=== PATIENT | female | born 1960 | race Caucasian/White ===

== ENCOUNTER 2017-08-08 09:28 | Inpatient (IN) | payer MEDICAID, OTHER ==
[2017-08-08 09:28] VITALS: BMI 30.2
[2017-08-08] MEDS ORDERED: Sodium Chloride 0.9% 1,000 ML ONE (09:57)
[2017-08-08] MEDS ORDERED: Sodium Chloride 0.9% 1,000 ML IV ONE (10:11)
--- NOTE | 2017-08-08 10:11 | C.PDOC ---
History Of Present Illness 57 y/o female with Hx of DM presents to ED with complaints of abdominal pain and dysphasia for some times. pt reports difficulty taking water. Patient reports previous history of Esophagitis and gastritis. Patient denies fever, chills, n/v/d or any other complaints at this time. Time Seen by Provider: 08/08/17 09:46 Chief Complaint (Nursing): Abdominal Pain History Per: Patient History/Exam Limitations: no limitations Onset/Duration Of Symptoms: Days Current Symptoms Are (Timing): Still Present Past Medical History Reviewed: Historical Data, Nursing Documentation, Vital Signs Vital Signs: Last Vital Signs Temp 98.3 F 08/15/17 08:20 Pulse 63 08/15/17 08:20 Resp 20 08/15/17 08:20 BP 161/80 H 08/15/17 08:20 Pulse Ox 98 08/15/17 11:16 - Medical History PMH: Diabetes, HTN, Hypothyroidism Denies: Chronic Kidney Disease - [facility] Procedures ESOPHAGOGASTRODUODENOSCOPY [EGD] W/CLOSED BIOPSY (05/06/13) Family History: States: Unknown Family Hx - Social History Hx Tobacco Use: No Hx Alcohol Use: No Hx Substance Use: No - Immunization History Hx Tetanus Toxoid Vaccination: No Hx Influenza Vaccination: No Hx Pneumococcal Vaccination: No Review Of Systems Except As Marked, All Systems Reviewed And Found Negative. Gastrointestinal: Positive for: Abdominal Pain Physical Exam - Physical Exam Appears: Non-toxic, No Acute Distress Skin: Normal Color, Warm, Dry, No Rash Head: Atraumatic, Normacephalic Eye(s): bilateral: Normal Inspection Oral Mucosa: Moist Neck: Normal ROM, Supple Chest: Symmetrical Cardiovascular: Rhythm Regular, No Murmur Respiratory: Normal Breath Sounds, No Rales, No Rhonchi, No Wheezing Gastrointestinal/Abdominal: Tenderness (mild to epigastric area), No Guarding, No Rebound Neurological/Psych: Oriented x3 ED Course And Treatment - Laboratory Results Result Diagrams: 08/15/17 08:58 08/15/17 08:58 ECG: Interpreted By Me, Viewed By Me ECG Rhythm: Sinus Rhythm ECG Interpretation: Normal Rate From EC (bpm) O2 Sat by Pulse Oximetry: 98 (RA) Pulse Ox Interpretation: Normal Progress Note: Dr. Rivas was called to discuss the case and advises to angie glucagon and reglan. Dr. Rivas will come to ED to evaluate patient. Dr. Luu will accept patient to his services. Medical Decision Making Medical Decision Making: Plan: * UA * Blood work * ECG case discussed with dr rivas, advises will be in to see pt for possible egd. dr fonseca accepts. pt tolerating secretions Disposition - Disposition Disposition: HOSPITALIZED Disposition Time: 11:15 Condition: FAIR - Clinical Impression Clinical Impression: Esophageal foreign body - Scribe Statement The provider has reviewed the documentation as recorded by the Scribe Nuris Raygoza All medical record entries made by the Scribe were at my direction and personally dictated by me. I have reviewed the chart and agree that the record accurately reflects my personal performance of the history, physical exam, medical decision making, and the department course for this patient. I have also personally directed, reviewed, and agree with the discharge instructions and disposition. Decision To Admit - Pt Status Changed To: Hospital Disposition Of: Inpatient - Admit Certification Admit to Inpatient:: After my assessment, the patient will require hospitalization for at least two midnights. This is because of the severity of symptoms shown, intensity of services needed, and/or the medical risk in this patient being treated as an outpatient. - InPatient: Physician Admission Certification:: pt needs egd, gi eval - . Bed Request Type: Regular Admitting Physician: Drew Fonseca Patient Diagnosis: Esophageal foreign body
[2017-08-08 10:16] LABS: BASO % 0.8 % (0.0-2.0); EOS % 0.8 % (0.0-4.0); HEMATOCRIT 29.2 % (34.0-47.0); LYMPH # 0.6 K/uL (1.0-4.3); LYMPH % 20.8 % (20.0-40.0); MEAN CELL VOLUME 89.1 fL (81.0-99.0); MEAN CORPUSCULAR HEMOGLOBIN 30.1 pg (27.0-31.0); MEAN CORPUSCULAR HGB CONC 33.8 g/dL (33.0-37.0); MONO # 0.3 K/uL (0.0-0.8); MONO % 10.2 % (0.0-10.0); NRBC % 0.1 % (0.0-2.0); RED CELL DISTRIBUTION WIDTH 15.6 % (11.5-14.5)
--- NOTE | 2017-08-08 10:23 | RAD ---
PROCEDURE: CHEST RADIOGRAPH, 1 VIEW HISTORY: abd pain COMPARISON: None available. FINDINGS: LUNGS: No acute infiltrate bilaterally. PLEURA: No pneumothorax or pleural fluid seen. CARDIOVASCULAR: Normal. OSSEOUS STRUCTURES: No significant abnormalities. VISUALIZED UPPER ABDOMEN: Normal. OTHER FINDINGS: None. IMPRESSION: No acute cardiopulmonary disease.
[2017-08-08 10:25] LABS: ALB/GLOB RATIO 0.9 (1.0-2.1); ALKALINE PHOSPHATASE 88 U/L (38-126); ALT/SGPT 24 U/L (9-52); AST/SGOT 29 U/L (14-36); BILIRUBIN,TOTAL 0.5 mg/dL (0.2-1.3); BLOOD UREA NITROGEN 13 mg/dL (7-17); CALCIUM 8.8 mg/dl (8.6-10.4); CARBON DIOXIDE 22 mmol/L (22-30); CHLORIDE 100 mmol/L (98-107); GFR AFRICAN-AMERICAN > 60; GLUCOSE,RANDOM 206 mg/dL (65-105); POTASSIUM 3.4 mmol/L (3.6-5.2); SODIUM 138 mmol/L (132-148); TOTAL PROTEIN 7.4 g/dL (6.3-8.3)
[2017-08-08 12:40] LABS: RBC URINE < 1 /hpf (0-3); URINE BACTERIA RARE (<OCC); URINE BILIRUBIN NEGATIVE (NEGATIVE); URINE BLOOD NEGATIVE (NEGATIVE); URINE COLOR Yellow (YELLOW); URINE GLUCOSE (UA) 2+ mg/dL (Normal); URINE HYALINE CAST 0-2 /lpf (0-2); URINE KETONE TRACE mg/dL (NEGATIVE); URINE LEUKOCYTE ESTERASE NEG Leu/uL (Negative); URINE PROTEIN 1+ mg/dL (NEGATIVE); URINE UROBILINOGEN NORMAL mg/dL (0.2-1.0); WBC URINE 3 /hpf (0-5)
--- NOTE | 2017-08-08 13:22 | CT ---
PROCEDURE: CT Chest without contrast HISTORY: dypshagia COMPARISON: None. TECHNIQUE: Contiguous axial images were obtained through the chest without intravenous contrast enhancement. Sagittal and coronal reconstructions were performed. Radiation dose (DLP): 143.03 mGy-cm. This CT exam was performed using one or more of the following dose reduction techniques: Automated exposure control, adjustment of the mA and/or kV according to patient size, and/or use of iterative reconstruction technique. FINDINGS: LUNGS: Clear lungs. Visualized airway clear. MEDIASTINUM: Unremarkable thoracic aorta. No aneurysm. Normal sized heart. Main pulmonary artery unremarkable. No vascular congestion. No lymphadenopathy. There is particulate matter intermixed with gas within the esophageal lumen in a long segment. This suggests possible gastroesophageal reflux or esophageal dysmotility. Recommend further evaluation with upper endoscopy. PLEURA: No pleural fluid. No pneumothorax. BONES: No fracture. Small rounded sclerotic lesion in the L1 vertebral body, likely benign bone island. UPPER ABDOMEN: Grossly unremarkable. OTHER FINDINGS: Superior right breast 6 mm nonspecific rounded nodule. Recommend evaluation with mammography and ultrasound examination. IMPRESSION: Particulate matter, possibly food, identified within the esophageal lumen intermixed with gas. Possible esophageal dysmotility or gastroesophageal reflux. Recommend further evaluation as above. Incidental 6 mm nodule identified within the superior right breast. Further evaluation with mammography and breast ultrasound is advised.
[2017-08-08] MEDS ORDERED: Glucagon Recombinant 1 mg Inj IV STA (13:27)
[2017-08-08] MEDS ORDERED: Glucagon Recombinant 1 mg Inj ONE (13:42)
[2017-08-08] MEDS ORDERED: Sodium Chloride 0.45% 1,000 ML IV SCH ×2 (15:45→18:53)
--- NOTE | 2017-08-08 17:28 | CP.PCM.HP ---
<TerrellJuana Ketan - Last Filed: 08/08/17 18:38> History of Present Illness - History of Present Illness History of Present Illness: CC: trouble swallowing liquids and solids with pain 57 year old female with PMHx of HTN, Hypothyroid, DM, GERD, esophagitis, gastritis, and LOLIS (dialyzed for 4 weeks, permacath removed 5 days ago). Patient comes in complaining of dysphagia that has been progressively worsening over the last two weeks. Pain has been worse at night because she normally spits up a lot during the day. She notes an associated sharp pain that occurs after burping. Patient says she feels like she has a lot of gas constantly. Patient has had a 15-20 lbs weight loss since February. She had an EGD done at [facility] back in February which showed ulceration of the lower esophagus. Patient states she was given abx and began to feel better until two weeks ago in which her symptoms progressively started to worsen. Patient has not been taking many of her normal medications due to her dysphagia. Patient takes her insulin, but often forgets. Patient also admits she has been having bowel movements less frequently and her stool color is expert witness in color for the past few weeks. Patient denies nausea, vomiting, abdominal pain, diarrhea, fever, or chills. PMD: Dr. Chuy Fernando Flow Worker: Dr. Ambrocio Pmhx: HTN, Hypothyroid, DM, GERD, esophagitis, gastritis, and LOLIS (dialyzed for 4 weeks, permacath removed 5 days ago) Pshx: Permacath, EGD Famhx: none known Social: denies tobacco, alcohol, drugs. retired and lives with Home Meds: Novolog 70/30: 34 u in am, 24 units in pm Present on Admission - Present on Admission Any Indicators Present on Admission: No History of DVT/PE: No History of Uncontrolled Diabetes: No Urinary Catheter: No Decubitus Ulcer Present: No Review of Systems - Constitutional Constitutional: Malaise, Weight Loss, Weakness. absent: Chills, Fever, Headache , Night Sweats - EENT Eyes: absent: Blurred Vision, Diplopia Nose/Mouth/Throat: Dysphagia. absent: Nasal Congestion, Dry Mouth - Cardiovascular Cardiovascular: absent: Chest Pain, Claudication, Diaphoresis, Dyspnea, Edema, Palpitations - Respiratory Respiratory: absent: Cough, Dyspnea, Hemoptysis, Snoring, Stridor - Gastrointestinal Gastrointestinal: Belching, Change in Stool Character, Dysphagia, Excessive Flatus, Heartburn. absent: Abdominal Pain, Diarrhea, Loose Stools Additional comments: having less frequent bowel movements and expert witness colored stools - Genitourinary Genitourinary: absent: Change in Urinary Stream, Difficulty Urinating, Dysuria, Flank Pain, Hematuria, Urinary Frequency, Urinary Hesitance, Urinary Urgency - Musculoskeletal Musculoskeletal: Muscle Weakness. absent: Myalgias, Stiffness, Tingling - Integumentary Integumentary: absent: Changing Lesions, New Lesions - Neurological Neurological: absent: Dizziness, Numbness - Psychiatric Psychiatric: absent: Confusion - Hematologic/Lymphatic Hematologic: absent: Easy Bleeding, Easy Bruising Past Patient History - Past Social History Smoking Status: Never Smoked - CARDIAC Hx Hypertension: Yes - PULMONARY Hx Respiratory Disorders: No - NEUROLOGICAL Hx Neurological Disorder: No - HEENT Hx HEENT Problems: No - RENAL Hx Chronic Kidney Disease: No - ENDOCRINE/METABOLIC Hx Hypothyroidism: Yes - HEMATOLOGICAL/ONCOLOGICAL Hx Blood Disorders: No - INTEGUMENTARY Hx Dermatological Problems: No - MUSCULOSKELETAL/RHEUMATOLOGICAL Hx Musculoskeletal Disorders: No - GASTROINTESTINAL Hx Gastrointestinal Disorders: No - GENITOURINARY/GYNECOLOGICAL Hx Genitourinary Disorders: No - PSYCHIATRIC Hx Substance Use: No - SURGICAL HISTORY Hx Section: Yes (x2) - ANESTHESIA Hx Anesthesia: Yes Hx Anesthesia Reactions: No Meds Allergies/Adverse Reactions: Allergies Allergy/AdvReac Type Severity Reaction Status Date / Time Penicillins Allergy Severe ANGIOEDEMA Verified 08/08/17 09:37 Physical Exam - Constitutional Appears: Non-toxic, No Acute Distress - Head Exam Head Exam: ATRAUMATIC, NORMAL INSPECTION, NORMOCEPHALIC - Eye Exam Eye Exam: EOMI, Normal appearance Additional comments: conjunctival pallor - ENT Exam ENT Exam: Mucous Membranes Moist - Respiratory Exam Respiratory Exam: Clear to Auscultation Bilateral, NORMAL BREATHING PATTERN. absent: Rales, Rhonchi, Wheezes, Respiratory Distress, Stridor - Cardiovascular Exam Cardiovascular Exam: REGULAR RHYTHM, RRR. absent: Gallop, Rubs, Systolic Murmur - GI/Abdominal Exam GI & Abdominal Exam: Normal Bowel Sounds, Soft - Extremities Exam Extremities exam: Positive for: full ROM, normal inspection. Negative for: joint swelling, pedal edema - Back Exam Back exam: NORMAL INSPECTION - Neurological Exam Neurological exam: Alert, Oriented x3 - Psychiatric Exam Psychiatric exam: Normal Affect, Normal Mood - Skin Skin Exam: Intact, Normal Color, Warm Results - Vital Signs Recent Vital Signs: Last Vital Signs Temp 98.0 F 08/08/17 09:31 Pulse 56 L 08/08/17 14:18 Resp 18 08/08/17 14:18 BP 123/74 08/08/17 14:18 Pulse Ox 100 08/08/17 14:18 - Labs Result Diagrams: 08/08/17 10:10 08/08/17 10:10 Assessment & Plan - Assessment and Plan (Free Text) Assessment: 1. Dysphagia Chest CT: particulate matter, possibly food, identified within the esophageal lumen intermixed with gas. Incidental 6mm nodule within superior right breast. Cxray: no acute cardiopulmonary disease f/u: neck soft tissue CT, barium swallow, swallow eval NPO 1/2 NS at 150 cc/ hr GI consulted, Dr. Cervantes, help appreciated Reglan 5mg ivp q6h Sucralfate 1 gm po ACBHS 2. Anemia H/H: 9.9/29.2 monitor f/u stool occult blood 3. Hx hypothyroidism f/u TSH 4. Diabetes ISS - high accuchecks q6h f/u HgA1C 5. Prophylaxis Heparin 5000u sc q8h Pepcid 20 ivp daily <Drew Valle H - Last Filed: 08/09/17 07:54> Results - Vital Signs Recent Vital Signs: Last Vital Signs Temp 97.5 F L 08/09/17 00:00 Pulse 64 08/09/17 00:00 Resp 20 08/09/17 00:00 BP 136/74 08/09/17 00:00 Pulse Ox 100 08/09/17 00:00 - Labs Result Diagrams: 08/08/17 10:10 08/08/17 10:10 Labs: Laboratory Results - last 24 hr 08/08/17 08/08/17 08/09/17 19:49 20:31 00:15 POC Glucose (mg/dL) 39 L 249 H 230 H 08/09/17 05:57 POC Glucose (mg/dL) 300 H Attending/Attestation - Attestation I have personally seen and examined this patient.: Yes I have fully participated in the care of the patient.: Yes I have reviewed all pertinent clinical information: Yes Notes (Text): Medical Attending: Patient was seen and examined by me. Agree with the above note by the resident. Family member present as well. She reports difficulty with swallowing both with liquids and solids. She denied throat pain or pain when swallowing. She also reported sensation of heavy bloating as well as gas when she does eat. Will check CT of the soft tissue of the neck. TSH, keep NPO. The ER had already spoken with GI as well. From what I understand there is also a history of poorly controlled diabetes as well. The patient was recently at [facility] due to renal failure - she isn't sure why but her family present explain that patient has a history of chronic pain and took a lot of over the counter pain medication. She did have a permacath and this had just been removed because her kidney function was now returning and she did not need HD any more. It is possible that perhaps she had ATN from heavy NSAID use however this is not clear.
[2017-08-08] MEDS ORDERED: Iodixanol 320 MG/ML 100 ML BOTTLE IV ONE (17:47)
[2017-08-08] MEDS: Sucralfate 1 gm/10 ml Oral Susp UD PO SCH ×2 (18:10→21:14)
[2017-08-08] MEDS: (Novolin R) Insulin Human Regular 100 units/ml vial SC SCH (19:50)
[2017-08-08] MEDS ORDERED: Dextrose 50% SYRINGE Inj (50 ml) IV STA (19:54)
[2017-08-08] MEDS ORDERED: Dextrose 50% SYRINGE Inj (50 ml) ONE (19:58)
[2017-08-08] MEDS: Potassium Ch 20mEq in D5-1/2NS 1,000 ML IV SCH (20:26)
--- NOTE | 2017-08-08 20:44 | CT ---
EXAM: CT Neck With Intravenous Contrast EXAM DATE/TIME: Exam ordered 08/08/2017 3:32 PM CLINICAL HISTORY: 57 years old, female; Signs and symptoms; Dysphagia / difficulty swallowing and mass, lump, or swelling in neck; Additional info: Dysphagia, R/O mass TECHNIQUE: Axial computed tomography images of the neck with intravenous contrast. All CT scans at this facility use one or more dose reduction techniques, viz.: automated exposure control; ma/kV adjustment per patient size (including targeted exams where dose is matched to indication; i.e. head); or iterative reconstruction technique. Coronal and sagittal reformatted images were created and reviewed. CONTRAST: 100 mL of visipaque 320 administered intravenously. COMPARISON: No relevant prior studies available. FINDINGS: Nasopharynx: Unremarkable. Oropharynx: Unremarkable. No significant tonsillar enlargement. No peritonsillar abscess. Hypopharynx: Unremarkable. Larynx: Unremarkable. Normal epiglottis. Trachea: Unremarkable. Retropharyngeal space: Unremarkable. Submandibular/parotid glands: Unremarkable. Glands are normal in size. Thyroid: Unremarkable. No enlarged or calcified nodules. Bones/joints: No acute fracture. Soft tissues: Unremarkable. Vasculature: No acute findings. Lymph nodes: An anterior cervical lymph node is present on the left below the parotid gland measuring 1.3 x 0.8 x 1.5 cm. Several posterior cervical lymph nodes are noted measuring less than a centimeter. Sinuses: Mucosal thickening is noted within the sphenoid sinus. Esophagus: There is circumferential wall thickening noted of the cervical esophagus. The esophagus is not fully imaged. Lung apices: Mild mosaic perfusion is noted in the lung apices. Other: There are multiple missing teeth. IMPRESSION: 1. There is abnormal circumferential thickening noted of the cervical esophagus. The esophagus is not imaged in its entirety. Findings could be due to reflux esophagitis but esophageal carcinoma is not excluded. Endoscopy and/or CT the chest recommended. 2. Mucosal thickening within the sphenoid sinus. 3. Mosaic perfusion abnormality noted the lung apices. This could reflect air trapping. Other etiologies including interstitial lung disease not excluded. There is a
[2017-08-09] MEDS: (Novolin R) Insulin Human Regular 100 units/ml vial SC SCH ×5 (00:45→20:00)
[2017-08-09] MEDS: Potassium Ch 20mEq in D5-1/2NS 1,000 ML IV SCH ×3 (05:51→22:13)
--- NOTE | 2017-08-09 06:16 | CON ---
DATE: 08/08/2017 LOCATION: 369, bed B. HISTORY OF PRESENT ILLNESS: I was called for GI consultation by the ER physician and her chart is reviewed. The patient was fully examined on 08/08/2017. All the available lab and radiology study results, current and the previous medication list, current and the previous medical history were reviewed. This is a 57-year-old female, admitted to the hospital with a complaint of dysphagia with epigastric pain on and off, but able to swallow her saliva as well as liquid food. According to the patient, she has such problem for the last 2 months and apparently was scoped by Dr. Bowen in [facility] Official report not available. After being admitted to the hospital, the patient had CAT scan of the chest as well as chest x-ray. Reports seen was possible retained food in the esophageal lumen mixed with gas with possible esophageal dysmotility or gastroesophageal reflux. PAST MEDICAL HISTORY: Hypertension, diabetes mellitus, and hypothyroidism. FAMILY HISTORY: Unknown. SOCIAL HISTORY: Denies any cigarette smoking or alcohol intake. CURRENT MEDICATIONS: Medication list was reviewed. BLOOD TESTS: After being admitted to the hospital showed low hemoglobin 9.9, hematocrit 29.2 with low platelets 129 and low white blood cell indicative of pancytopenia with low potassium 3.4 with increased blood glucose level 206. PHYSICAL EXAMINATION: GENERAL: A 57 years old female. VITAL SIGNS: Afebrile with pulse of 66, respiratory rate 18 to 20, blood pressure 150/74. HEENT: Shows mildly dry, pale oral mucous membrane. Nonicteric sclerae. LUNGS: Clear. Breathing sounds are present bilaterally. LYMPH NODES: No lymphadenitis or lymphadenopathy. ABDOMEN: Soft with mild generalized tenderness. No mass or organomegaly. No rebound tenderness or guarding. RECTAL: The patient refused. EXTREMITIES: Without edema, clubbing, or cyanosis. NEUROLOGIC: No new neurological deficits, sensory or motor. IMPRESSION: 1. Dysphagia, the patient indicated that it was improved significantly, I directed the Emergency Room physician to get Glucagon and Reglan, which helped the patient immediately. 2. To rule out diffuse esophagitis. 3. To rule out esophageal . 4. Anemia, most likely secondary to chronic disease. No evidence of active bleeding. SUGGESTIONS: 1. EGD. I spent over 3 hours trying to find a spot in the endoscopy room to schedule this patient for upper endoscopy today unsuccessfully due to lack of nursing staff as per the nursing staff in the endoscopy room and ongoing procedure for the last several hours, according to the nursing staff in the endoscopy room. 2. Reglan IV. 3. Esophagogram to be scheduled and/or barium swallow. 4. Upper endoscopy, if the patient does not improve clinically. 5. Carafate liquid. 6. Further recommendation to follow. 7. This case could be done as outpatient as the patient able to swallow her saliva as well as clear liquid diet according to her statement, after the barium swallow is to be done as per Dr. Lackey. 8. I will contact the LOAN INSPECTOR regarding the scheduling in the endoscopy room. Yo Lackey MD CC: Yo Lackey MD
--- NOTE | 2017-08-09 07:53 | CP.PCM.PN ---
<Juana Tejada - Last Filed: 08/09/17 17:33> Subjective - Date & Time of Evaluation Date of Evaluation: 08/09/17 Time of Evaluation: 07:00 - Subjective Subjective: PGY-1 Medicine Note- Dr. Valle's Service Patient seen and examined at bedside and in no acute distress. Patient says she is very hungry and her throat is causing her less pain. In the afternoon patient told the nurse she was worried about a dog outside her window. Nurse did not see anything. I asked the patient if she thought what she saw was real and she said yes. She said she's never had hallucinations - visual or auditory in the past. Currently she denies any other hallucinations. Patient denies shortness of breath, chest pain, abdominal pain, nausea, vomiting, constipation , or diarrhea. Objective - Vital Signs/Intake and Output Vital Signs (last 24 hours): Temp Pulse Resp BP Pulse Ox 97.5 F L 64 20 136/74 100 08/09/17 00:00 08/09/17 00:00 08/09/17 00:00 08/09/17 00:00 08/09/17 00:00 Intake and Output: 08/09/17 08/09/17 06:59 18:59 Intake Total 800 Balance 800 - Medications Medications: Current Medications Famotidine (Pepcid) 20 mg IVP DAILY [facility] Fluconazole (Diflucan) 100 mg PO DAILY [facility] Heparin Sodium (Porcine) (Heparin) 5,000 units SC Q8 [facility] Last Admin: 08/09/17 05:50 Dose: 5,000 units Potassium Chloride/Dextrose/Sod Cl (Potassium Chl 20 Meq In D5-1/2ns) 1,000 mls @ 100 mls/hr IV .Q10H [facility] Last Admin: 08/09/17 05:51 Dose: 100 mls/hr Insulin Human Regular (Novolin R) 0 unit SC Q6H [facility] PRN Reason: Protocol Last Admin: 08/09/17 07:09 Dose: Not Given Metoclopramide HCl (Reglan) 5 mg IVP Q6 [facility] Last Admin: 08/09/17 05:54 Dose: 5 mg Sucralfate (Carafate Oral Susp) 1 gm PO ACBHS [facility] Last Admin: 08/08/17 21:14 Dose: 1 gm - Labs Labs: PT 11.2 SECONDS (9.7-12.2) 08/08/17 10:10 INR 1.0 08/08/17 10:10 APTT 25 SECONDS (21-34) 08/08/17 10:10 - Constitutional Appears: Non-toxic, No Acute Distress - Head Exam Head Exam: ATRAUMATIC, NORMAL INSPECTION, NORMOCEPHALIC - Eye Exam Eye Exam: EOMI, Normal appearance - ENT Exam ENT Exam: Mucous Membranes Moist - Neck Exam Neck Exam: Full ROM. absent: Tenderness - Respiratory Exam Respiratory Exam: Clear to Ausculation Bilateral, NORMAL BREATHING PATTERN - Cardiovascular Exam Cardiovascular Exam: REGULAR RHYTHM, RRR. absent: Gallop, Rubs - GI/Abdominal Exam GI & Abdominal Exam: Soft, Normal Bowel Sounds - Extremities Exam Extremities Exam: Full ROM, Normal Inspection. absent: Pedal Edema - Neurological Exam Neurological Exam: Alert, Awake, Oriented x3 - Psychiatric Exam Psychiatric exam: Normal Affect, Normal Mood - Skin Skin Exam: Intact, Normal Color, Warm Assessment and Plan - Assessment and Plan (Free Text) Assessment: 1. Dysphagia Chest CT: particulate matter, possibly food, identified within the esophageal lumen intermixed with gas. Incidental 6mm nodule within superior right breast. Cxray: no acute cardiopulmonary disease neck soft tissue CT: 1. abnormal circumferential thickening noted of the cervical esophagus. findings could be due to reflux esophagitis but esophageal carcinoma is not excluded. 2. mucosal thickening within the sphenoid sinus 3. mosaic perfusion abnormality noted in the lung apices. could reflect air trapping. other etiologies including interstitial lung disease not excluded. full liquid diet barium swallow, swallow eval D51/2 NS at 150 cc/ hr GI consulted, Dr. Cervantes, help appreciated Reglan 5mg ivp q6h Sucralfate 1 gm po ACBHS 2. Anemia 08/09: dropped to 8.4/25.5 H/H: 9.9/29.2 monitor f/u stool occult blood 3. Leukopenia 1.9 on 08/09 f/u HIV, hep panel 4. visual hallucination Psychiatry, Dr. Henderson, consulted- help appreciated 5. Hx hypothyroidism TSH: 27.8 f/u free T3, T4 4. Diabetes ISS - high accuchecks q6h f/u HgA1C 5. Prophylaxis Heparin 5000u sc q8h Pepcid 20 ivp daily <Valle,Peter H - Last Filed: 08/09/17 18:44> Objective - Vital Signs/Intake and Output Vital Signs (last 24 hours): Temp Pulse Resp BP Pulse Ox 97.7 F 68 20 131/75 100 08/09/17 15:15 08/09/17 15:15 08/09/17 15:15 08/09/17 15:15 08/09/17 15:15 Intake and Output: 08/09/17 08/09/17 06:59 18:59 Intake Total 800 1000 Balance 800 1000 - Medications Medications: Current Medications Famotidine (Pepcid) 20 mg IVP DAILY [facility] Last Admin: 08/09/17 10:36 Dose: 20 mg Fluconazole (Diflucan) 100 mg PO DAILY [facility] Last Admin: 08/09/17 10:35 Dose: Not Given Heparin Sodium (Porcine) (Heparin) 5,000 units SC Q8 [facility] Last Admin: 08/09/17 05:50 Dose: 5,000 units Potassium Chloride/Dextrose/Sod Cl (Potassium Chl 20 Meq In D5-1/2ns) 1,000 mls @ 100 mls/hr IV .Q10H [facility] Last Admin: 08/09/17 15:22 Dose: Not Given Insulin Human Regular (Novolin R) 0 unit SC Q6H [facility] PRN Reason: Protocol Last Admin: 08/09/17 12:50 Dose: 6 unit Metoclopramide HCl (Reglan) 5 mg IVP Q6 [facility] Last Admin: 08/09/17 18:02 Dose: Not Given Sucralfate (Carafate Oral Susp) 1 gm PO ACBHS [facility] Last Admin: 08/09/17 08:23 Dose: 1 gm - Labs Labs: 08/09/17 07:51 08/09/17 07:51 PT 11.2 SECONDS (9.7-12.2) 08/08/17 10:10 INR 1.0 08/08/17 10:10 APTT 25 SECONDS (21-34) 08/08/17 10:10 Attending/Attestation - Attestation I have personally seen and examined this patient.: Yes I have fully participated in the care of the patient.: Yes I have reviewed all pertinent clinical information, including history, physical exam and plan: Yes Notes (Text): Medical Attending: Patient was seen and examined by me. Agree with the above note by the resident. When we saw the patient she was not in any acute distress. Initially it was planned for patient to have barium swallow study done - however I was later notified that the patient did not have this since the team that does this study does not come on the weekends. Later I was also notified that the nurse was concerned the patient was having hallucinations as well. She was evaluated by resident and out concern is she may also have some underlying psychiatric disorder as well. Will get a psychiatry evaluation. thank you Drew Valle
[2017-08-09 08:21] LABS: BASO % 0.6 % (0.0-2.0); EOS # 0.1 K/uL (0.0-0.7); EOS % 2.8 % (0.0-4.0); HEMATOCRIT 25.5 % (34.0-47.0); LYMPH # 0.4 K/uL (1.0-4.3); LYMPH % 22.6 % (20.0-40.0); MEAN CELL VOLUME 89.7 fL (81.0-99.0); MEAN CORPUSCULAR HEMOGLOBIN 29.5 pg (27.0-31.0); MEAN PLATELET VOLUME 8.5 fL (7.2-11.7); MONO # 0.2 K/uL (0.0-0.8); RED CELL DISTRIBUTION WIDTH 15.4 % (11.5-14.5)
[2017-08-09] MEDS: Sucralfate 1 gm/10 ml Oral Susp UD PO SCH ×2 (08:23→21:38)
[2017-08-09 08:33] LABS: WHITE BLOOD COUNT 1.9 K/uL (4.8-10.8)
[2017-08-09 08:38] LABS: POTASSIUM 3.7 mmol/L (3.6-5.2)
[2017-08-09 08:39] LABS: ALB/GLOB RATIO 0.8 (1.0-2.1); BILIRUBIN,TOTAL 0.4 mg/dL (0.2-1.3); TOTAL PROTEIN 5.7 g/dL (6.3-8.3)
[2017-08-09 08:40] LABS: CALCIUM 7.5 mg/dl (8.6-10.4); PHOSPHOROUS 2.7 mg/dL (2.5-4.5)
[2017-08-09 08:41] LABS: MAGNESIUM 1.5 mg/dL (1.6-2.3)
[2017-08-09 08:50] LABS: THYROID STIMULATING HORMONE 27.8 mIU/L (0.46-4.68)
[2017-08-09 17:36] LABS: T4 6.64 ug/dL (5.5-11.0)
[2017-08-10] MEDS: (Novolin R) Insulin Human Regular 100 units/ml vial SC SCH ×4 (00:41→18:03)
[2017-08-10] MEDS: Potassium Ch 20mEq in D5-1/2NS 1,000 ML IV SCH ×3 (03:42→21:26)
[2017-08-10] MEDS: Sucralfate 1 gm/10 ml Oral Susp UD PO SCH ×2 (06:33→21:26)
[2017-08-10 09:00] LABS: BASO % 0.5 % (0.0-2.0); EOS % 1.8 % (0.0-4.0); HEMATOCRIT 27.9 % (34.0-47.0); LYMPH # 0.7 K/uL (1.0-4.3); LYMPH % 28.1 % (20.0-40.0); MEAN CELL VOLUME 89.4 fL (81.0-99.0); MEAN CORPUSCULAR HEMOGLOBIN 29.8 pg (27.0-31.0); MEAN CORPUSCULAR HGB CONC 33.4 g/dL (33.0-37.0); MEAN PLATELET VOLUME 8.4 fL (7.2-11.7); MONO # 0.3 K/uL (0.0-0.8); MONO % 9.5 % (0.0-10.0); NRBC % 0.7 % (0.0-2.0); RED CELL DISTRIBUTION WIDTH 15.2 % (11.5-14.5); WHITE BLOOD COUNT 2.7 K/uL (4.8-10.8)
[2017-08-10 09:06] LABS: CHLORIDE 108 mmol/L (98-107); POTASSIUM 3.9 mmol/L (3.6-5.2); SODIUM 136 mmol/L (132-148)
[2017-08-10 09:08] LABS: AST/SGOT 28 U/L (14-36); BILIRUBIN,TOTAL 0.4 mg/dL (0.2-1.3); CARBON DIOXIDE 20 mmol/L (22-30); GFR AFRICAN-AMERICAN > 60
[2017-08-10 09:09] LABS: ALB/GLOB RATIO 0.8 (1.0-2.1); ALKALINE PHOSPHATASE 76 U/L (38-126); ALT/SGPT 22 U/L (9-52); BLOOD UREA NITROGEN 7 mg/dL (7-17); GLUCOSE,RANDOM 312 mg/dL (65-105); MAGNESIUM 1.5 mg/dL (1.6-2.3); PHOSPHOROUS 2.5 mg/dL (2.5-4.5); TOTAL PROTEIN 6.5 g/dL (6.3-8.3)
--- NOTE | 2017-08-10 10:56 | PN ---
DATE: LOCATION: Count includes the [facility], bed B. SUBJECTIVE: This is a 57-year-old female seen and examined in rounds, who has much less dysphagia, tolerating oral intake so far well with slight pain in the distal esophageal area. No nausea or vomiting reported. The entire chart is reviewed including, but not limited to the most recent lab and radiology study results, current and previous medication list, and current and previous medical events and the latest blood test showed evidence of pancytopenia of unclear etiology with increased TSH, but decreased T3 and T4. I have been waiting for the barium swallow or the esophagogram, but has not been done during the weekend. IMPRESSION: 1. Dysphagia, subsided. 2. Possible esophageal dysmotility. 3. Diabetes mellitus. 4. Pancytopenia, rule out possible human immunodeficiency virus infection. 5. Diabetes mellitus with possible diabetic gastroparesis. PLAN: The patient will need: 1. Esophagogram. 2. Hematology/Oncology consult with ID consultation due to the pancytopenia. 3. Endocrinology consult due to her poorly controlled diabetes mellitus and thyroid disorder. Awaiting the result of the barium swallow. However, the patient may need upper endoscopy that could be done as an outpatient as there is no evidence of nausea, vomiting or actual regurgitation so far since admission. We want to follow up only p.r.n. Thank you for letting me to participate in your patient's case management. Yo Lackey MD cc: Yo Lackey MD
--- NOTE | 2017-08-10 15:21 | CP.PCM.PN ---
<Juana Tejada - Last Filed: 08/10/17 17:39> Subjective - Date & Time of Evaluation Date of Evaluation: 08/10/17 Time of Evaluation: 07:00 - Subjective Subjective: PGY1- Medicine Note- Dr. Oshea's Service Patient seen and examined at bedside and in no acute distress. Patient says she is able to tolerate some warmer liquids such as coffee, but regurgitates up orange juice when she tries to drink it. Patient denies any chest pain, shortness of breath, nausea, vomiting, constipation, or diarrhea. Objective - Vital Signs/Intake and Output Vital Signs (last 24 hours): Temp Pulse Resp BP Pulse Ox 98.1 F 62 20 151/83 H 100 08/10/17 08:51 08/10/17 08:51 08/10/17 08:51 08/10/17 08:51 08/10/17 08:51 Intake and Output: 08/10/17 08/10/17 06:59 18:59 Intake Total 1850 1100 Balance 1850 1100 - Medications Medications: Current Medications Famotidine (Pepcid) 20 mg IVP DAILY [facility] Last Admin: 08/10/17 09:30 Dose: 20 mg Fluconazole (Diflucan) 100 mg PO DAILY [facility] Last Admin: 08/10/17 09:30 Dose: 100 mg Heparin Sodium (Porcine) (Heparin) 5,000 units SC Q8 [facility] Last Admin: 08/09/17 05:50 Dose: 5,000 units Potassium Chloride/Dextrose/Sod Cl (Potassium Chl 20 Meq In D5-1/2ns) 1,000 mls @ 100 mls/hr IV .Q10H [facility] Last Admin: 08/10/17 11:49 Dose: 100 mls/hr Insulin Human Regular (Novolin R) 0 unit SC Q6H [facility] PRN Reason: Protocol Last Admin: 08/10/17 11:49 Dose: 8 unit Metoclopramide HCl (Reglan) 5 mg IVP Q6 [facility] Last Admin: 08/10/17 11:59 Dose: Not Given Sucralfate (Carafate Oral Susp) 1 gm PO ACBHS [facility] Last Admin: 08/10/17 06:33 Dose: 1 gm - Labs Labs: 08/10/17 08:36 08/10/17 08:36 PT 11.2 SECONDS (9.7-12.2) 08/08/17 10:10 INR 1.0 08/08/17 10:10 APTT 25 SECONDS (21-34) 08/08/17 10:10 - Constitutional Appears: Non-toxic, No Acute Distress - Head Exam Head Exam: ATRAUMATIC, NORMAL INSPECTION, NORMOCEPHALIC - Eye Exam Eye Exam: EOMI, Normal appearance - ENT Exam ENT Exam: Mucous Membranes Moist - Neck Exam Neck Exam: Full ROM. absent: Tenderness - Respiratory Exam Respiratory Exam: Clear to Ausculation Bilateral, NORMAL BREATHING PATTERN - Cardiovascular Exam Cardiovascular Exam: REGULAR RHYTHM, RRR. absent: Gallop, Rubs, Murmur - GI/Abdominal Exam GI & Abdominal Exam: Soft, Normal Bowel Sounds - Extremities Exam Extremities Exam: Full ROM, Normal Inspection - Neurological Exam Neurological Exam: Alert, Awake, Oriented x3 - Psychiatric Exam Psychiatric exam: Normal Affect, Normal Mood - Skin Skin Exam: Intact, Normal Color, Warm Assessment and Plan - Assessment and Plan (Free Text) Assessment: 1. Dysphagia Chest CT: particulate matter, possibly food, identified within the esophageal lumen intermixed with gas. Incidental 6mm nodule within superior right breast. Cxray: no acute cardiopulmonary disease neck soft tissue CT: 1. abnormal circumferential thickening noted of the cervical esophagus. findings could be due to reflux esophagitis but esophageal carcinoma is not excluded. 2. mucosal thickening within the sphenoid sinus 3. mosaic perfusion abnormality noted in the lung apices. could reflect air trapping. other etiologies including interstitial lung disease not excluded. full diet D51/2 NS at 150 cc/ hr GI consulted, Dr. Cervantes, help appreciated Reglan 5mg ivp q6h Sucralfate 1 gm po ACBHS f/u barium swallow, if okay patient can continue workup as an outpatient 2. Anemia 08/09: dropped to 8.4/25.5 H/H: 9.9/29.2 monitor f/u stool occult blood 3. Leukopenia 1.9 on 08/09 f/u HIV, hep panel 4. visual hallucination Psychiatry, Dr. Henderson, consulted- help appreciated 5. Hx hypothyroidism TSH: 27.8 free T3:2.19 free T4: .89 restart synthroid at patient's past dosage 4. Diabetes ISS - high accuchecks q6h f/u HgA1C 5. Prophylaxis Heparin 5000u sc q8h Pepcid 20 ivp daily <Ashok Oshea - Last Filed: 08/18/17 12:32> Objective - Vital Signs/Intake and Output Vital Signs (last 24 hours): Temp Pulse Resp BP Pulse Ox 98.1 F 80 20 138/80 98 08/18/17 07:07 08/18/17 07:07 08/18/17 07:07 08/18/17 07:07 08/18/17 07:07 Intake and Output: 08/18/17 08/18/17 06:59 18:59 Intake Total 980 Balance 980 - Medications Medications: Current Medications Benztropine Mesylate (Cogentin) 1 mg PO Q6 PRN PRN Reason: Allergy symptoms Last Admin: 08/18/17 09:50 Dose: 1 mg Famotidine (Pepcid) 20 mg PO DAILY [facility] Last Admin: 08/18/17 09:49 Dose: 20 mg Fluconazole (Diflucan) 100 mg PO DAILY [facility] Last Admin: 08/18/17 09:49 Dose: 100 mg Haloperidol (Haldol) 5 mg PO Q6 PRN PRN Reason: Psychosis Hydroxyzine HCl (Atarax) 25 mg PO Q6 PRN PRN Reason: Agitation Last Admin: 08/11/17 17:35 Dose: 25 mg Trimethoprim/Sulfamethoxazole (250 mg/ Dextrose) 250 mls @ 250 mls/hr IVPB Q8H [facility] Last Admin: 08/18/17 10:37 Dose: 250 mls/hr Insulin Human Regular (Novolin R) 0 unit SC [facility] PRN Reason: Protocol Last Admin: 08/18/17 11:37 Dose: 10 unit Levothyroxine Sodium (Synthroid) 125 mcg PO DAILY@0630 [facility] Last Admin: 08/18/17 05:51 Dose: 125 mcg Sertraline HCl (Zoloft) 50 mg PO DAILY [facility] Last Admin: 08/18/17 09:49 Dose: 50 mg Sucralfate (Carafate Oral Susp) 1 gm PO ACBHS [facility] Last Admin: 08/18/17 08:28 Dose: 1 gm Trazodone HCl (Desyrel) 50 mg PO HS [facility] Last Admin: 08/17/17 23:00 Dose: 50 mg - Labs Labs: 08/18/17 07:47 08/18/17 07:47 PT 11.2 SECONDS (9.7-12.2) 08/08/17 10:10 INR 1.0 08/08/17 10:10 APTT 25 SECONDS (21-34) 08/08/17 10:10 Attending/Attestation - Attestation I have personally seen and examined this patient.: Yes I have fully participated in the care of the patient.: Yes I have reviewed all pertinent clinical information, including history, physical exam and plan: Yes Notes (Text): 1. Dysphagia 2. Anemia 3. Leukopenia
--- NOTE | 2017-08-10 22:36 | PCM.PSYCH ---
Initial Psychiatric Evaluation - Initial Psychiatric Evaluation Type of Admission: Voluntary Legal Status: Capacity Chief Complaint (in patient's own words): I am feeling depressed.' History of Present Illness and Precipitating Events: This is a 57 years old HF, who lives alone, currently unemployed, came to the ED because of anxiety attack. Today pt was consulted. Patient reports a long history of depression. But denies any history of any inpatient psychiatric hospitalization and denies any history of follow-up with any psychiatrist. As per the staff yesterday patient was seeing a dog coming out of a pipe and was feeling anxious so she was consulted by psychiatry today. Pt. reports depressed mood, and reports that yesterday she was hallucinating about a dog but denies any suicidal ideation or homicidal ideation. Today she denies any auditory or visual hallucinations or any persecutory delusions. She denies any other substance abuse. Past medical history None reported Current Medications: Active Medications Generic Name Dose Route Start Last Admin Trade Name Freq PRN Reason Stop Dose Admin Famotidine 20 mg 08/09/17 10:00 08/10/17 09:30 Pepcid IVP 20 mg DAILY [facility] Administration Fluconazole 100 mg 08/09/17 10:00 08/10/17 09:30 Diflucan PO 100 mg DAILY [facility] Administration Heparin Sodium (Porcine) 5,000 units 08/08/17 22:00 08/09/17 05:50 Heparin SC 5,000 units Q8 [facility] Administration Potassium Chloride/Dextrose/Sod Cl 1,000 mls @ 100 mls/hr 08/08/17 20:15 21:26 Potassium Chl 20 Meq In D5-1/2ns IV 100 mls/hr .Q10H [facility] Administration Insulin Human Regular 0 unit 08/08/17 18:45 08/10/17 18:03 Novolin R SC 4 unit Q6H [facility] Administration Protocol Metoclopramide HCl 5 mg 08/08/17 20:00 08/10/17 18:03 Reglan IVP Not Given Q6 [facility] Sucralfate 1 gm 08/08/17 18:00 08/10/17 21:26 Carafate Oral Susp PO 1 gm ACBHS [facility] Administration Past Psychiatric History - Past Psychiatric History Previous Treatment History: None Pertinent Medical Hx (Current Medical&Sleep Prob, Allergies): Allergies Allergy/AdvReac Type Severity Reaction Status Date / Time Penicillins Allergy Severe ANGIOEDEMA Verified 08/08/17 09:37 Insulin Aspart, Recombinant [Novolog] 0 unit SC PC 08/08/17 Insulin Human (NPH)/Regular [Novolin 70/30 (70/30 units/ml) 10 ml] 34 units SC AC 08/08/17 Review of Systems - Review of Systems All systems: reviewed and no additional remarkable complaints except - Psychiatric Psychiatric: Anxiety, Depression, Irritability Mental Status Examination - Personal Presentation Personal Presentation: Looks stated age - Affect Affect: Constricted, Depressed - Motor Activity Motor Activity: Calm - Reliability in Providing Information Reliability in Providing Information: Fair - Speech Speech: Organized - Mood Mood: Depressed, Anxious - Formal Thought Process Formal Thought Process: No Impairment - Hallucinations/Delusions Hallucinations: Visual, Auditory - Obsessions/Compulsions Obsessions: No Compulsions: No - Cognitive Functions Orientation: Person, Place, Situation, Time Sensorium: Alert Attention/Concentration: Attentive Abstract Thinking: [place] Estimate of Intelligence: Below average Judgement: Imparied, as evidence by: Poor judgement, Intact, as evidence by: Insight regarding need for hospitalization - Risk Risk: Diminished functioning - Strength & Assets Inventory Strength & Assets Inventory: Employment history DSM 5 DX - DSM 5 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
[2017-08-11] MEDS: (Novolin R) Insulin Human Regular 100 units/ml vial SC SCH ×4 (06:12→19:58)
[2017-08-11] MEDS: Potassium Ch 20mEq in D5-1/2NS 1,000 ML IV SCH ×3 (06:17→15:58)
[2017-08-11] MEDS: Sucralfate 1 gm/10 ml Oral Susp UD PO SCH ×2 (08:00→21:25)
--- NOTE | 2017-08-11 09:03 | CP.PCM.PN ---
<Glen Briggs - Last Filed: 08/11/17 18:12> Subjective - Date & Time of Evaluation Date of Evaluation: 08/11/17 Time of Evaluation: 09:03 - Subjective Subjective: PGY1 Note for Dr. Valle HPI: Patient seen and examined at bedside. Patient was found by nurse at 830am to be shaking and smacking her lips. Nurse called a Rapid response. Patient was believed to have had a seizure. She was post-ictal when I first arrived. Vitals were stable. Labs were unremarkable. Blood sugar was in the 400s. D5 was decreased to a rate of 50. CT of head was done. Patient was evaluated later and was less confused and more responsive. Denied any LOC, chest pain or SOB. Objective - Vital Signs/Intake and Output Vital Signs (last 24 hours): Temp Pulse Resp BP Pulse Ox 98.2 F 64 20 187/77 H 98 08/11/17 08:20 08/11/17 08:20 08/11/17 08:20 08/11/17 08:20 08/11/17 08:20 Intake and Output: 08/11/17 08/11/17 06:59 18:59 Intake Total 900 Balance 900 - Medications Medications: Current Medications Benztropine Mesylate (Cogentin) 1 mg PO Q6 PRN PRN Reason: Allergy symptoms Famotidine (Pepcid) 20 mg IVP DAILY [facility] Last Admin: 08/10/17 09:30 Dose: 20 mg Fluconazole (Diflucan) 100 mg PO DAILY [facility] Last Admin: 08/10/17 09:30 Dose: 100 mg Haloperidol (Haldol) 5 mg PO Q6 PRN PRN Reason: Psychosis Heparin Sodium (Porcine) (Heparin) 5,000 units SC Q8 [facility] Last Admin: 08/09/17 05:50 Dose: 5,000 units Hydroxyzine HCl (Atarax) 25 mg PO Q6 PRN PRN Reason: Agitation Potassium Chloride/Dextrose/Sod Cl (Potassium Chl 20 Meq In D5-1/2ns) 1,000 mls @ 100 mls/hr IV .Q10H [facility] Last Admin: 08/11/17 06:17 Dose: 100 mls/hr Insulin Human Regular (Novolin R) 0 unit SC Q6H JESSICA PRN Reason: Protocol Last Admin: 08/11/17 06:12 Dose: Not Given Metoclopramide HCl (Reglan) 5 mg IVP Q6 [facility] Last Admin: 08/11/17 05:14 Dose: Not Given Sertraline HCl (Zoloft) 50 mg PO DAILY [facility] Sucralfate (Carafate Oral Susp) 1 gm PO ACBHS [facility] Last Admin: 08/10/17 21:26 Dose: 1 gm Trazodone HCl (Desyrel) 50 mg PO HS [facility] Last Admin: 08/10/17 23:26 Dose: Not Given - Labs Labs: 08/10/17 08:36 08/10/17 08:36 PT 11.2 SECONDS (9.7-12.2) 08/08/17 10:10 INR 1.0 08/08/17 10:10 APTT 25 SECONDS (21-34) 08/08/17 10:10 - Constitutional Appears: Well, Non-toxic, No Acute Distress - Head Exam Head Exam: ATRAUMATIC, NORMAL INSPECTION, NORMOCEPHALIC - Eye Exam Eye Exam: EOMI Pupil Exam: NORMAL ACCOMODATION - ENT Exam ENT Exam: Mucous Membranes Moist - Neck Exam Neck Exam: Normal Inspection - Respiratory Exam Respiratory Exam: Clear to Ausculation Bilateral, NORMAL BREATHING PATTERN - Cardiovascular Exam Cardiovascular Exam: REGULAR RHYTHM - GI/Abdominal Exam GI & Abdominal Exam: Soft, Normal Bowel Sounds. absent: Distended, Tenderness - Neurological Exam Neurological Exam: Alert, Awake - Psychiatric Exam Psychiatric exam: Normal Affect, Normal Mood - Skin Skin Exam: Dry, Intact, Normal Color, Warm Assessment and Plan - Assessment and Plan (Free Text) Assessment: Dysphagia * Chest CT * particulate matter, possibly food, identified within the esophageal lumen intermixed with gas. * Incidental 6mm nodule within superior right breast. * CXR * no acute cardiopulmonary disease * Neck soft tissue CT * Abnormal circumferential thickening noted of the cervical esophagus. findings could be due to reflux esophagitis but esophageal carcinoma is not excluded. * D51/2 NS @ 50 * GI consulted, Dr. Cervantes * Diflucan 100mg PO QD * Reglan 5mg ivp q6h * Sucralfate 1 gm po Anemia * monitor * stool occult blood Leukopenia * HIV screen Positive, F/U Confirmatory * hep panel negative visual hallucination * Psychiatry, Dr. Henderson * haloperidol - held due to somnolence * hydroxyzine * zoloft * trazadone - held due to somnolence Hx hypothyroidism * TSH: 27.8 * T3: 2.19 * T4: 0.89 * synthroid 125mcg QD Diabetes * ISS - high * Lantus 10mg SC QD * accuchecks q6h * HgA1C - 7.1 Prophylaxis * Heparin 5000u sc q8h * Pepcid 20 ivp daily <Valle,Peter H - Last Filed: 08/11/17 18:49> Objective - Vital Signs/Intake and Output Vital Signs (last 24 hours): Temp Pulse Resp BP Pulse Ox 97.3 F L 81 20 155/76 H 100 08/11/17 16:00 08/11/17 16:00 08/11/17 16:00 08/11/17 16:00 08/11/17 16:00 Intake and Output: 08/11/17 08/11/17 06:59 18:59 Intake Total 900 500 Balance 900 500 - Medications Medications: Current Medications Benztropine Mesylate (Cogentin) 1 mg PO Q6 PRN PRN Reason: Allergy symptoms Famotidine (Pepcid) 20 mg IVP DAILY [facility] Last Admin: 08/11/17 10:54 Dose: 20 mg Fluconazole (Diflucan) 100 mg PO DAILY [facility] Last Admin: 08/11/17 09:57 Dose: Not Given Haloperidol (Haldol) 5 mg PO Q6 PRN PRN Reason: Psychosis Heparin Sodium (Porcine) (Heparin) 5,000 units SC Q8 [facility] Last Admin: 08/09/17 05:50 Dose: 5,000 units Hydroxyzine HCl (Atarax) 25 mg PO Q6 PRN PRN Reason: Agitation Last Admin: 08/11/17 17:35 Dose: 25 mg Potassium Chloride/Dextrose/Sod Cl (Potassium Chl 20 Meq In D5-1/2ns) 1,000 mls @ 50 mls/hr IV .Q20H [facility] Last Admin: 08/11/17 15:58 Dose: Not Given Insulin Glargine (Lantus) 10 unit SC DAILY [facility] Insulin Human Regular (Novolin R) 0 unit SC Q6H JESSICA PRN Reason: Protocol Last Admin: 08/11/17 12:33 Dose: 12 unit Levothyroxine Sodium (Synthroid) 125 mcg PO DAILY@0630 [facility] Metoclopramide HCl (Reglan) 5 mg IVP Q6 [facility] Last Admin: 08/11/17 17:36 Dose: 5 mg Sertraline HCl (Zoloft) 50 mg PO DAILY [facility] Last Admin: 08/11/17 09:58 Dose: Not Given Sucralfate (Carafate Oral Susp) 1 gm PO ACBHS [facility] Last Admin: 08/11/17 08:00 Dose: Not Given Trazodone HCl (Desyrel) 50 mg PO HS [facility] Last Admin: 08/10/17 23:26 Dose: Not Given - Labs Labs: 08/11/17 09:16 08/11/17 09:16 PT 11.2 SECONDS (9.7-12.2) 08/08/17 10:10 INR 1.0 08/08/17 10:10 APTT 25 SECONDS (21-34) 08/08/17 10:10 Attending/Attestation - Attestation I have personally seen and examined this patient.: Yes I have fully participated in the care of the patient.: Yes I have reviewed all pertinent clinical information, including history, physical exam and plan: Yes Notes (Text): 08/11/17 18:46 Medical Attending: Patient was seen and examined by me. Agree with the above note by the resident. The patient had an [employer] ASSOCI[employer] this logging assistant for a seizure - when we came and saw her vital signs were stable. She was postictal - she did not appear to have lost bowel or bladder. Did not cause lacerations in her mouth. CT scan of the head was checked as well as stat lab work. Drew Valle 08/11/17 18:49
[2017-08-11 09:25] LABS: BASO % 0.9 % (0.0-2.0); EOS % 1.3 % (0.0-4.0); HEMATOCRIT 30.2 % (34.0-47.0); LYMPH # 1.1 K/uL (1.0-4.3); LYMPH % 30.8 % (20.0-40.0); MEAN CELL VOLUME 90.9 fL (81.0-99.0); MEAN CORPUSCULAR HEMOGLOBIN 29.8 pg (27.0-31.0); MEAN CORPUSCULAR HGB CONC 32.9 g/dL (33.0-37.0); MEAN PLATELET VOLUME 8.3 fL (7.2-11.7); MONO # 0.3 K/uL (0.0-0.8); MONO % 7.9 % (0.0-10.0); NRBC % 0.3 % (0.0-2.0); WHITE BLOOD COUNT 3.5 K/uL (4.8-10.8)
[2017-08-11 09:33] LABS: ALB/GLOB RATIO 0.9 (1.0-2.1); ALKALINE PHOSPHATASE 95 U/L (38-126); ALT/SGPT 23 U/L (9-52); AST/SGOT 26 U/L (14-36); BILIRUBIN,TOTAL 0.4 mg/dL (0.2-1.3); BLOOD UREA NITROGEN 6 mg/dL (7-17); CALCIUM 8.7 mg/dl (8.6-10.4); CARBON DIOXIDE 16 mmol/L (22-30); CHLORIDE 104 mmol/L (98-107); GFR AFRICAN-AMERICAN > 60; MAGNESIUM 1.4 mg/dL (1.6-2.3); POTASSIUM 4.5 mmol/L (3.6-5.2); SODIUM 135 mmol/L (132-148); TOTAL PROTEIN 6.8 g/dL (6.3-8.3)
[2017-08-11 09:41] LABS: GLUCOSE,RANDOM 521 mg/dL (65-105)
--- NOTE | 2017-08-11 10:02 | CT ---
PROCEDURE: CT HEAD WITHOUT CONTRAST. HISTORY: unresopnsive COMPARISON: None available. TECHNIQUE: Axial computed tomography images were obtained through the head/brain without intravenous contrast. Radiation dose: Total exam DLP = 900.6 mGy-cm. This CT exam was performed using one or more of the following dose reduction techniques: Automated exposure control, adjustment of the mA and/or kV according to patient size, and/or use of iterative reconstruction technique. FINDINGS: HEMORRHAGE: No intracranial hemorrhage. BRAIN: No mass effect or edema. Mild atrophy and [id number] white matter changes suggestive but nonspecific for chronic microvascular ischemic disease. VENTRICLES: Unremarkable. No hydrocephalus. CALVARIUM: Unremarkable. PARANASAL SINUSES: Unremarkable as visualized. No significant inflammatory changes. MASTOID AIR CELLS: Unremarkable as visualized. No inflammatory changes. OTHER FINDINGS: None. IMPRESSION: No evidence of acute intracranial hemorrhage intracranial collection mass effect or midline shift. Mild atrophy and mild chronic microvascular white matter ischemic disease.
[2017-08-11] MEDS ORDERED: Barium Sulfate for Susp 96% w/w 176g Bottle PR ONE (14:25)
--- NOTE | 2017-08-11 15:10 | RAD ---
PROCEDURE: CHEST RADIOGRAPH, 1 VIEW HISTORY: dysphagia, barium swallow COMPARISON: None available. FINDINGS: LUNGS: MILD VENOUS CONGESTION. SMALL NODULAR DENSITY IN THE LEFT SUPRAHILAR REGION MAY REPRESENT PROMINENT VESSEL ON END. PLEURA: No pneumothorax or pleural fluid seen. CARDIOVASCULAR: Normal. OSSEOUS STRUCTURES: Productive change at the right coracoid process and greater tuberosity. Degenerative changes in the spine. VISUALIZED UPPER ABDOMEN: Normal. OTHER FINDINGS: None. IMPRESSION: Mild venous congestion. Patient could not tolerate upper GI examination. If there is concern for esophageal pathology, correlation with endoscopy is recommended.
[2017-08-11] MEDS: Tmp-Smz 800 mg-160 mg DS Tab PO SCH (20:30)
[2017-08-12] MEDS: (Novolin R) Insulin Human Regular 100 units/ml vial SC SCH ×4 (00:45→18:45)
[2017-08-12] MEDS: Levothyroxine 125 MCG TAB PO SCH (06:56)
--- NOTE | 2017-08-12 07:46 | CP.PCM.PN ---
<Glen Briggs - Last Filed: 08/12/17 19:14> Subjective - Date & Time of Evaluation Date of Evaluation: 08/12/17 Time of Evaluation: 07:44 - Subjective Subjective: PGY1 Note for Dr. Valle HPI: Patient seen and examined at bedside. Still confused. Hardly able to get ROS out of. Family at bedside. does not want children to know mother has HIV. Spoke to him separately. States she has been off of her HAART for ~3 months. Patient does state she needs to urinate. Objective - Vital Signs/Intake and Output Vital Signs (last 24 hours): Temp Pulse Resp BP Pulse Ox 98.4 F 82 20 154/83 H 100 08/11/17 23:53 08/11/17 23:53 08/11/17 23:53 08/11/17 23:53 08/11/17 23:53 Intake and Output: 08/12/17 08/12/17 06:59 18:59 Intake Total 850 Balance 850 - Medications Medications: Current Medications Benztropine Mesylate (Cogentin) 1 mg PO Q6 PRN PRN Reason: Allergy symptoms Famotidine (Pepcid) 20 mg IVP DAILY [facility] Last Admin: 08/11/17 10:54 Dose: 20 mg Fluconazole (Diflucan) 100 mg PO DAILY [facility] Last Admin: 08/11/17 09:57 Dose: Not Given Haloperidol (Haldol) 5 mg PO Q6 PRN PRN Reason: Psychosis Heparin Sodium (Porcine) (Heparin) 5,000 units SC Q8 [facility] Last Admin: 08/09/17 05:50 Dose: 5,000 units Hydroxyzine HCl (Atarax) 25 mg PO Q6 PRN PRN Reason: Agitation Last Admin: 08/11/17 17:35 Dose: 25 mg Potassium Chloride/Dextrose/Sod Cl (Potassium Chl 20 Meq In D5-1/2ns) 1,000 mls @ 50 mls/hr IV .Q20H [facility] Last Admin: 08/11/17 15:58 Dose: Not Given Insulin Glargine (Lantus) 10 unit SC DAILY [facility] Insulin Human Regular (Novolin R) 0 unit SC Q6H JESSICA PRN Reason: Protocol Last Admin: 08/12/17 00:45 Dose: Not Given Levothyroxine Sodium (Synthroid) 125 mcg PO DAILY@0630 [facility] Last Admin: 08/12/17 06:56 Dose: 125 mcg Metoclopramide HCl (Reglan) 5 mg IVP Q6 [facility] Last Admin: 08/12/17 06:56 Dose: 5 mg Sertraline HCl (Zoloft) 50 mg PO DAILY [facility] Last Admin: 08/11/17 09:58 Dose: Not Given Sucralfate (Carafate Oral Susp) 1 gm PO ACBHS [facility] Last Admin: 08/11/17 21:25 Dose: 1 gm Trazodone HCl (Desyrel) 50 mg PO HS [facility] Last Admin: 08/11/17 21:24 Dose: 50 mg Trimethoprim/Sulfamethoxazole (Bactrim Ds Tab) 1 tab PO Q12H [facility] Last Admin: 08/11/17 20:30 Dose: 1 tab - Labs Labs: 08/11/17 09:16 08/11/17 09:16 PT 11.2 SECONDS (9.7-12.2) 08/08/17 10:10 INR 1.0 08/08/17 10:10 APTT 25 SECONDS (21-34) 08/08/17 10:10 - Constitutional Appears: Chronically Ill - Head Exam Head Exam: ATRAUMATIC, NORMAL INSPECTION, NORMOCEPHALIC - ENT Exam ENT Exam: Mucous Membranes Moist - Respiratory Exam Respiratory Exam: Clear to Ausculation Bilateral, NORMAL BREATHING PATTERN - Cardiovascular Exam Cardiovascular Exam: REGULAR RHYTHM - GI/Abdominal Exam GI & Abdominal Exam: Soft, Tenderness Additional comments: mild suprapubic tenderness - Extremities Exam Extremities Exam: absent: Joint Swelling, Tenderness - Neurological Exam Neurological Exam: Altered, Awake - Skin Skin Exam: Dry, Intact, Normal Color, Warm Assessment and Plan - Assessment and Plan (Free Text) Assessment: 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 Opportunistic Inf.? * CT head Negative * MRI * LDH * ABG * CD4 * Viral Load * ID (Gideon) * Bactrum 240mg IV Q8 * Must r/o infectious causes * EBV * CMV * Crypto * RPR - nonreactive * Toxoplasma Dysphagia * Chest CT * particulate matter, possibly food, identified within the esophageal lumen intermixed with gas. * Incidental 6mm nodule within superior right breast. * CXR * no acute cardiopulmonary disease * Neck soft tissue CT * Abnormal circumferential thickening noted of the cervical esophagus. findings could be due to reflux esophagitis but esophageal carcinoma is not excluded. * D51/2 NS @ 50 * GI consulted, Dr. Cervantes * Diflucan 100mg PO QD * Reglan 5mg ivp q6h * Sucralfate 1 gm po * Barium Swallow Anemia * monitor * stool occult blood Leukopenia * HIV screen Positive, F/U Confirmatory * hep panel negative visual hallucination * Psychiatry, Dr. Henderson * haloperidol - held due to somnolence * hydroxyzine * zoloft * trazadone - held due to somnolence Hx hypothyroidism * TSH: 27.8 * T3: 2.19 * T4: 0.89 * synthroid 125mcg QD Diabetes * ISS - high * Lantus 10mg SC QD * accuchecks q6h * HgA1C - 7.1 Urinary Retention * Bladder scan * if retaining, Insert pink Prophylaxis * Heparin 5000u sc q8h * Pepcid 20 ivp daily <Drew Valle - Last Filed: 08/13/17 07:46> Objective - Vital Signs/Intake and Output Vital Signs (last 24 hours): Temp Pulse Resp BP Pulse Ox 97.1 F L 68 20 118/73 94 L 08/12/17 23:47 08/12/17 23:47 08/12/17 23:47 08/12/17 23:47 08/12/17 23:47 Intake and Output: 08/13/17 08/13/17 06:59 18:59 Intake Total 900 Balance 900 - Medications Medications: Current Medications Benztropine Mesylate (Cogentin) 1 mg PO Q6 PRN PRN Reason: Allergy symptoms Famotidine (Pepcid) 20 mg IVP DAILY [facility] Last Admin: 08/12/17 12:03 Dose: 20 mg Fluconazole (Diflucan) 100 mg PO DAILY [facility] Last Admin: 08/11/17 09:57 Dose: Not Given Haloperidol (Haldol) 5 mg PO Q6 PRN PRN Reason: Psychosis Heparin Sodium (Porcine) (Heparin) 5,000 units SC Q8 [facility] Last Admin: 08/09/17 05:50 Dose: 5,000 units Hydroxyzine HCl (Atarax) 25 mg PO Q6 PRN PRN Reason: Agitation Last Admin: 08/11/17 17:35 Dose: 25 mg Potassium Chloride/Dextrose/Sod Cl (Potassium Chl 20 Meq In D5-1/2ns) 1,000 mls @ 50 mls/hr IV .Q20H [facility] Last Admin: 08/13/17 05:00 Dose: 50 mls/hr Insulin Glargine (Lantus) 10 unit SC DAILY [facility] Last Admin: 08/12/17 10:45 Dose: 10 u Insulin Human Regular (Novolin R) 0 unit SC Q6H JESSICA PRN Reason: Protocol Last Admin: 08/13/17 06:54 Dose: 10 unit Levothyroxine Sodium (Synthroid) 125 mcg PO DAILY@0630 [facility] Last Admin: 08/13/17 06:07 Dose: 125 mcg Metoclopramide HCl (Reglan) 5 mg IVP Q6 [facility] Last Admin: 08/13/17 06:17 Dose: 5 mg Sertraline HCl (Zoloft) 50 mg PO DAILY [facility] Last Admin: 08/11/17 09:58 Dose: Not Given Sucralfate (Carafate Oral Susp) 1 gm PO ACBHS [facility] Last Admin: 08/12/17 21:16 Dose: 1 gm Trazodone HCl (Desyrel) 50 mg PO HS [facility] Last Admin: 08/12/17 21:16 Dose: 50 mg - Labs Labs: 08/12/17 08:33 08/12/17 08:33 PT 11.2 SECONDS (9.7-12.2) 08/08/17 10:10 INR 1.0 08/08/17 10:10 APTT 25 SECONDS (21-34) 08/08/17 10:10 Attending/Attestation - Attestation I have personally seen and examined this patient.: Yes I have fully participated in the care of the patient.: Yes I have reviewed all pertinent clinical information, including history, physical exam and plan: Yes Notes (Text): Medical Attending: Patient was seen and examined by me. Agree with the above note by the resident. The patient was with family members at bedside. was present as well and he requested we do not mention to the patient's son anything with reguards to the the patient's HIV status. We suspect that likely because she has not had HARRT medications in a very long time that her CD4/CD8 cells will be very low and that she may be AIDs criteria. She did have a seizure so will order additional imaging of the brain for potential masses. Also check blood cultures again as well. She was already placed on IV bactrim by resident. Agree with this. Will need to get ID evaluation. Per patient was recently at [facility], will try to get medical records thank you Drew Valle
[2017-08-12] MEDS: Sucralfate 1 gm/10 ml Oral Susp UD PO SCH ×2 (08:00→21:16)
[2017-08-12] MEDS: Tmp-Smz 800 mg-160 mg DS Tab PO SCH (08:00)
[2017-08-12 08:38] LABS: BASO % 0.3 % (0.0-2.0); EOS % 0.1 % (0.0-4.0); HEMATOCRIT 25.3 % (34.0-47.0); LYMPH # 0.5 K/uL (1.0-4.3); LYMPH % 17.3 % (20.0-40.0); MEAN CORPUSCULAR HEMOGLOBIN 30.1 pg (27.0-31.0); MEAN CORPUSCULAR HGB CONC 34.2 g/dL (33.0-37.0); MEAN PLATELET VOLUME 8.1 fL (7.2-11.7); MONO # 0.4 K/uL (0.0-0.8); RED CELL DISTRIBUTION WIDTH 14.4 % (11.5-14.5)
[2017-08-12 08:41] LABS: MEAN CELL VOLUME 88.2 fL (81.0-99.0)
[2017-08-12 08:55] LABS: POTASSIUM 4.1 mmol/L (3.6-5.2)
[2017-08-12 08:57] LABS: ALB/GLOB RATIO 0.9 (1.0-2.1); BILIRUBIN,TOTAL 0.5 mg/dL (0.2-1.3); TOTAL PROTEIN 6.7 g/dL (6.3-8.3)
[2017-08-12 08:58] LABS: CALCIUM 8.7 mg/dl (8.6-10.4); MAGNESIUM 1.5 mg/dL (1.6-2.3); PHOSPHOROUS 2.7 mg/dL (2.5-4.5)
[2017-08-12] MEDS: (Lantus) Insulin Glargine, Recombinant SC SCH (10:45)
[2017-08-12] MEDS ORDERED: Sulfamethoxazole/Trimethoprim 80 MG in Dextrose 5% In Water 100 ML IVPB SCH (15:15)
--- NOTE | 2017-08-12 17:08 | MRI ---
PROCEDURE: MRI BRAIN WITHOUT CONTRAST HISTORY: AMS, negative CT, HIV + COMPARISON: Comparison is made to the previous CT dated 08/11/2017 TECHNIQUE: Multiplanar, multisequence MR images of the brain were obtained without intravenous contrast enhancement. FINDINGS: The study is somewhat limited due to patient's motion HEMORRHAGE: No definite evidence of hematoma or fluid collection in the brain. DWI: No evidence of diffusion restriction to suggest acute infarct in this limited study. BRAIN PARENCHYMA: No mass effect or edema. Gdgc-dv-[id number] atrophy is noted. VENTRICLES: Unremarkable. No hydrocephalus. CRANIUM: Unremarkable. ORBITS: Grossly unremarkable. PARANASAL SINUSES/MASTOIDS: There is mucosal thickening at the right sphenoid sinus. There is fluid signal/effusion seen at the left petrous apex suspicious for petrous apicitis. VASCULAR SYSTEM: Skull base flow voids intact. OTHER FINDINGS: None. IMPRESSION: Limited study due to patient's motion. No evidence of infarction or intracranial hemorrhage. Mucosal thickening at the right sphenoid sinus and fluid signal at the left petrous apex noted in this study and in the previous CT.
--- NOTE | 2017-08-12 21:44 | CP.PCM.CON ---
History of Present Illness - History of Present Illness History of Present Illness: dictated Past Patient History - Past Medical History & Family History Past Medical History?: Yes - Past Social History Smoking Status: Never Smoked - CARDIAC Hx Hypertension: Yes - PULMONARY Hx Respiratory Disorders: No - NEUROLOGICAL Hx Neurological Disorder: No - HEENT Hx HEENT Problems: No - RENAL Hx Chronic Kidney Disease: No - ENDOCRINE/METABOLIC Hx Diabetes Mellitus Type 2: Yes Hx Hypothyroidism: Yes - HEMATOLOGICAL/ONCOLOGICAL Hx Blood Disorders: No - INTEGUMENTARY Hx Dermatological Problems: No - MUSCULOSKELETAL/RHEUMATOLOGICAL Hx Musculoskeletal Disorders: No - GASTROINTESTINAL Hx Gastrointestinal Disorders: No - GENITOURINARY/GYNECOLOGICAL Hx Genitourinary Disorders: No - PSYCHIATRIC Hx Substance Use: No - SURGICAL HISTORY Hx Section: Yes (x2) - ANESTHESIA Hx Anesthesia: Yes Hx Anesthesia Reactions: No Meds Allergies/Adverse Reactions: Allergies Allergy/AdvReac Type Severity Reaction Status Date / Time Penicillins Allergy Severe ANGIOEDEMA Verified 08/08/17 09:37 - Medications Medications: Current Medications Benztropine Mesylate (Cogentin) 1 mg PO Q6 PRN PRN Reason: Allergy symptoms Famotidine (Pepcid) 20 mg IVP DAILY [facility] Last Admin: 08/12/17 12:03 Dose: 20 mg Fluconazole (Diflucan) 100 mg PO DAILY [facility] Last Admin: 08/11/17 09:57 Dose: Not Given Haloperidol (Haldol) 5 mg PO Q6 PRN PRN Reason: Psychosis Heparin Sodium (Porcine) (Heparin) 5,000 units SC Q8 [facility] Last Admin: 08/09/17 05:50 Dose: 5,000 units Hydroxyzine HCl (Atarax) 25 mg PO Q6 PRN PRN Reason: Agitation Last Admin: 08/11/17 17:35 Dose: 25 mg Potassium Chloride/Dextrose/Sod Cl (Potassium Chl 20 Meq In D5-1/2ns) 1,000 mls @ 50 mls/hr IV .Q20H [facility] Last Admin: 08/11/17 15:58 Dose: Not Given Trimethoprim/Sulfamethoxazole (240 mg/ Dextrose) 250 mls @ 100 mls/hr IVPB Q8 [facility] Insulin Glargine (Lantus) 10 unit SC DAILY [facility] Last Admin: 08/12/17 10:45 Dose: 10 u Insulin Human Regular (Novolin R) 0 unit SC Q6H JESSICA PRN Reason: Protocol Last Admin: 08/12/17 18:45 Dose: 3 unit Levothyroxine Sodium (Synthroid) 125 mcg PO DAILY@0630 [facility] Last Admin: 08/12/17 06:56 Dose: 125 mcg Metoclopramide HCl (Reglan) 5 mg IVP Q6 [facility] Last Admin: 08/12/17 17:41 Dose: 5 mg Sertraline HCl (Zoloft) 50 mg PO DAILY [facility] Last Admin: 08/11/17 09:58 Dose: Not Given Sucralfate (Carafate Oral Susp) 1 gm PO ACBHS [facility] Last Admin: 08/12/17 21:16 Dose: 1 gm Trazodone HCl (Desyrel) 50 mg PO HS [facility] Last Admin: 08/12/17 21:16 Dose: 50 mg Results - Vital Signs Recent Vital Signs: Last Vital Signs Temp 97.7 F 08/12/17 17:21 Pulse 69 08/12/17 17:21 Resp 20 08/12/17 17:21 BP 115/69 08/12/17 17:21 Pulse Ox 100 08/12/17 17:21 - Labs Result Diagrams: 08/12/17 08:33 08/12/17 08:33 Labs: Laboratory Results - last 24 hr 08/12/17 08/12/17 08/12/17 00:27 06:56 08:33 WBC 3.0 L RBC 2.87 L Hgb 8.6 L Hct 25.3 L MCV 88.2 D MCH 30.1 MCHC 34.2 RDW 14.4 Plt Count 125 L MPV 8.1 Neut % (Auto) 70.3 Lymph % (Auto) 17.3 L Nance % (Auto) 12.0 H Eos % (Auto) 0.1 Baso % (Auto) 0.3 Neut # 2.1 Lymph # 0.5 L Nance # 0.4 Eos # 0.0 Baso # 0.0 Sodium Potassium Chloride Carbon Dioxide Anion Gap BUN Creatinine Est GFR ( Amer) Est GFR (Non-Af Amer) POC Glucose (mg/dL) 158 H 321 H Random Glucose Calcium Phosphorus Magnesium Total Bilirubin AST ALT Alkaline Phosphatase Lactate Dehydrogenase Total Protein Albumin Globulin Albumin/Globulin Ratio RPR 08/12/17 08/12/17 08/12/17 08:33 11:31 12:17 WBC RBC Hgb Hct MCV MCH MCHC RDW Plt Count MPV Neut % (Auto) Lymph % (Auto) Nance % (Auto) Eos % (Auto) Baso % (Auto) Neut # Lymph # Nance # Eos # Baso # Sodium 135 Potassium 4.1 Chloride 105 Carbon Dioxide 20 L Anion Gap 14 BUN 11 Creatinine 1.3 H Est GFR ( Amer) 51 Est GFR (Non-Af Amer) 42 POC Glucose (mg/dL) 473 H* Random Glucose 383 H Calcium 8.7 Phosphorus 2.7 Magnesium 1.5 L Total Bilirubin 0.5 AST 23 ALT 26 Alkaline Phosphatase 85 Lactate Dehydrogenase Total Protein 6.7 Albumin 3.2 L Globulin 3.5 Albumin/Globulin Ratio 0.9 L RPR Nonreactive 08/12/17 08/12/17 08/12/17 16:45 17:01 19:06 WBC RBC Hgb Hct MCV MCH MCHC RDW Plt Count MPV Neut % (Auto) Lymph % (Auto) Nance % (Auto) Eos % (Auto) Baso % (Auto) Neut # Lymph # Nance # Eos # Baso # Sodium Potassium Chloride Carbon Dioxide Anion Gap BUN Creatinine Est GFR ( Amer) Est GFR (Non-Af Amer) POC Glucose (mg/dL) 331 H 196 H Random Glucose Calcium Phosphorus Magnesium Total Bilirubin AST ALT Alkaline Phosphatase Lactate Dehydrogenase 478 Total Protein Albumin Globulin Albumin/Globulin Ratio RPR
[2017-08-12] MEDS ORDERED: Sulfamethoxazole/Trimethoprim 240 MG in Dextrose 5% In Water 250 ML IVPB SCH (22:00)
[2017-08-13] MEDS: (Novolin R) Insulin Human Regular 100 units/ml vial SC SCH ×5 (00:21→22:29)
[2017-08-13] MEDS: Potassium Ch 20mEq in D5-1/2NS 1,000 ML IV SCH (05:00)
[2017-08-13] MEDS: Levothyroxine 125 MCG TAB PO SCH (06:07)
--- NOTE | 2017-08-13 07:15 | CP.PCM.PN ---
<Glen Briggs - Last Filed: 08/13/17 20:06> Subjective - Date & Time of Evaluation Date of Evaluation: 08/13/17 Time of Evaluation: 07:12 - Subjective Subjective: PGY1 note for Dr. Valle HPI: Patient seen and examined at bedside. Doing well. Much more coherent today. Oriented to place and person but not to time. Patient thinks its Caitlyn but knows her name and that she is at [facility] She states she is still feeling a little confused and "cloudy". Denies any chest pain, SOB, N/V/D/F Objective - Vital Signs/Intake and Output Vital Signs (last 24 hours): Temp Pulse Resp BP Pulse Ox 97.1 F L 68 20 118/73 94 L 08/12/17 23:47 08/12/17 23:47 08/12/17 23:47 08/12/17 23:47 08/12/17 23:47 Intake and Output: 08/13/17 08/13/17 06:59 18:59 Intake Total 900 Balance 900 - Medications Medications: Current Medications Benztropine Mesylate (Cogentin) 1 mg PO Q6 PRN PRN Reason: Allergy symptoms Famotidine (Pepcid) 20 mg IVP DAILY [facility] Last Admin: 08/12/17 12:03 Dose: 20 mg Fluconazole (Diflucan) 100 mg PO DAILY [facility] Last Admin: 08/11/17 09:57 Dose: Not Given Haloperidol (Haldol) 5 mg PO Q6 PRN PRN Reason: Psychosis Heparin Sodium (Porcine) (Heparin) 5,000 units SC Q8 [facility] Last Admin: 08/09/17 05:50 Dose: 5,000 units Hydroxyzine HCl (Atarax) 25 mg PO Q6 PRN PRN Reason: Agitation Last Admin: 08/11/17 17:35 Dose: 25 mg Potassium Chloride/Dextrose/Sod Cl (Potassium Chl 20 Meq In D5-1/2ns) 1,000 mls @ 50 mls/hr IV .Q20H [facility] Last Admin: 08/13/17 05:00 Dose: 50 mls/hr Insulin Glargine (Lantus) 10 unit SC DAILY [facility] Last Admin: 08/12/17 10:45 Dose: 10 u Insulin Human Regular (Novolin R) 0 unit SC Q6H [facility] PRN Reason: Protocol Last Admin: 08/13/17 06:54 Dose: 10 unit Levothyroxine Sodium (Synthroid) 125 mcg PO DAILY@0630 [facility] Last Admin: 08/13/17 06:07 Dose: 125 mcg Metoclopramide HCl (Reglan) 5 mg IVP Q6 [facility] Last Admin: 08/13/17 06:17 Dose: 5 mg Sertraline HCl (Zoloft) 50 mg PO DAILY [facility] Last Admin: 08/11/17 09:58 Dose: Not Given Sucralfate (Carafate Oral Susp) 1 gm PO ACBHS [facility] Last Admin: 08/12/17 21:16 Dose: 1 gm Trazodone HCl (Desyrel) 50 mg PO HS [facility] Last Admin: 08/12/17 21:16 Dose: 50 mg - Labs Labs: 08/12/17 08:33 08/12/17 08:33 PT 11.2 SECONDS (9.7-12.2) 08/08/17 10:10 INR 1.0 08/08/17 10:10 APTT 25 SECONDS (21-34) 08/08/17 10:10 - Constitutional Appears: Chronically Ill - Head Exam Head Exam: ATRAUMATIC, NORMAL INSPECTION, NORMOCEPHALIC - Eye Exam Eye Exam: EOMI - ENT Exam ENT Exam: Mucous Membranes Moist - Respiratory Exam Respiratory Exam: Clear to Ausculation Bilateral, NORMAL BREATHING PATTERN - Cardiovascular Exam Cardiovascular Exam: REGULAR RHYTHM - GI/Abdominal Exam GI & Abdominal Exam: Soft, Normal Bowel Sounds. absent: Distended, Tenderness - Extremities Exam Extremities Exam: absent: Joint Swelling, Tenderness - Neurological Exam Neurological Exam: Alert, Awake. 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 Opportunistic Inf.? * CT head Negative * MRI - unremarkable * LDH - 478 * CD4 * Viral Load * ID (Gideon) * Bactrum 240mg IV Q8 * Must r/o infectious causes * EBV * CMV - IgG > 10; IgM <30; Dennotes previous infection, no acute infection * Crypto * RPR - nonreactive * Toxoplasma - IgG < 7.2; IgM < 8 Dysphagia * Chest CT * particulate matter, possibly food, identified within the esophageal lumen intermixed with gas. * Incidental 6mm nodule within superior right breast. * CXR * no acute cardiopulmonary disease * Neck soft tissue CT * Abnormal circumferential thickening noted of the cervical esophagus. findings could be due to reflux esophagitis but esophageal carcinoma is not excluded. * D51/2 NS @ 50 * GI consulted, Dr. Cervantes * Diflucan 100mg PO QD * Reglan 5mg ivp q6h * Sucralfate 1 gm po * Barium Swallow - small hiatal hernia, otherwise unremarkable Anemia * monitor * stool occult blood Leukopenia * HIV screen Positive, F/U Confirmatory * hep panel negative visual hallucination * Psychiatry, Dr. Henderson * haloperidol - held due to somnolence * hydroxyzine * zoloft * trazadone - held due to somnolence Hx hypothyroidism * TSH: 27.8 * T3: 2.19 * T4: 0.89 * synthroid 125mcg QD Diabetes * ISS - high * Lantus 10mg SC QD * accuchecks q6h * HgA1C - 7.1 Urinary Retention * Bladder scan * if retaining, Insert pink Prophylaxis * Heparin 5000u sc q8h * Pepcid 20 ivp daily <Drew Vlale H - Last Filed: 08/14/17 07:21> Objective - Vital Signs/Intake and Output Vital Signs (last 24 hours): Temp Pulse Resp BP Pulse Ox 98.1 F 66 20 129/71 98 08/14/17 00:10 08/14/17 00:10 08/14/17 00:10 08/14/17 00:10 08/14/17 00:10 Intake and Output: 08/14/17 08/14/17 06:59 18:59 Intake Total 1760 Balance 1760 - Medications Medications: Current Medications Benztropine Mesylate (Cogentin) 1 mg PO Q6 PRN PRN Reason: Allergy symptoms Famotidine (Pepcid) 20 mg IVP DAILY [facility] Last Admin: 08/13/17 11:21 Dose: 20 mg Fluconazole (Diflucan) 100 mg PO DAILY [facility] Last Admin: 08/13/17 11:10 Dose: 100 mg Haloperidol (Haldol) 5 mg PO Q6 PRN PRN Reason: Psychosis Heparin Sodium (Porcine) (Heparin) 5,000 units SC Q8 [facility] Last Admin: 08/09/17 05:50 Dose: 5,000 units Hydroxyzine HCl (Atarax) 25 mg PO Q6 PRN PRN Reason: Agitation Last Admin: 08/11/17 17:35 Dose: 25 mg Potassium Chloride/Dextrose/Sod Cl (Potassium Chl 20 Meq In D5-1/2ns) 1,000 mls @ 50 mls/hr IV .Q20H [facility] Last Admin: 08/14/17 03:59 Dose: Not Given Insulin Glargine (Lantus) 10 unit SC DAILY [facility] Last Admin: 08/13/17 11:21 Dose: 10 u Insulin Human Regular (Novolin R) 0 unit SC ACHS [facility] PRN Reason: Protocol Last Admin: 08/13/17 22:29 Dose: Not Given Levothyroxine Sodium (Synthroid) 125 mcg PO DAILY@0630 [facility] Last Admin: 08/14/17 05:32 Dose: 125 mcg Metoclopramide HCl (Reglan) 5 mg IVP Q6 [facility] Last Admin: 08/14/17 05:31 Dose: 5 mg Sertraline HCl (Zoloft) 50 mg PO DAILY [facility] Last Admin: 08/13/17 11:11 Dose: 50 mg Sucralfate (Carafate Oral Susp) 1 gm PO ACBHS [facility] Last Admin: 08/13/17 22:14 Dose: 1 gm Trazodone HCl (Desyrel) 50 mg PO HS [facility] Last Admin: 08/13/17 22:14 Dose: 50 mg - Labs Labs: 08/13/17 10:57 08/13/17 10:57 PT 11.2 SECONDS (9.7-12.2) 08/08/17 10:10 INR 1.0 08/08/17 10:10 APTT 25 SECONDS (21-34) 08/08/17 10:10 Attending/Attestation - Attestation I have personally seen and examined this patient.: Yes I have fully participated in the care of the patient.: Yes I have reviewed all pertinent clinical information, including history, physical exam and plan: Yes Notes (Text): 08/14/17 07:15 Medical Attending: Patient was seen and examined by me. Agree with the above note by the resident. The patient was very concerned about her HIV status. We explained to her that we [place] still [place] [facility] [place] as getting a CD4 and CD8 studies and halso HIV Viral load. She is now on bactrim IV and diflucan PO. MRI of the brain is pending. thank you Drew Valle
[2017-08-13] MEDS: Sucralfate 1 gm/10 ml Oral Susp UD PO SCH ×2 (08:00→22:14)
[2017-08-13 11:04] LABS: BASO % 0.7 % (0.0-2.0); EOS % 1.1 % (0.0-4.0); HEMATOCRIT 26.9 % (34.0-47.0); LYMPH # 0.4 K/uL (1.0-4.3); LYMPH % 13.7 % (20.0-40.0); MEAN CELL VOLUME 89.6 fL (81.0-99.0); MEAN CORPUSCULAR HEMOGLOBIN 29.8 pg (27.0-31.0); MEAN CORPUSCULAR HGB CONC 33.2 g/dL (33.0-37.0); MEAN PLATELET VOLUME 8.3 fL (7.2-11.7); MONO # 0.2 K/uL (0.0-0.8); MONO % 8.5 % (0.0-10.0); RED CELL DISTRIBUTION WIDTH 14.7 % (11.5-14.5); WHITE BLOOD COUNT 2.7 K/uL (4.8-10.8)
[2017-08-13 11:10] LABS: POTASSIUM 4.3 mmol/L (3.6-5.2)
[2017-08-13 11:14] LABS: CALCIUM 8.9 mg/dl (8.6-10.4)
[2017-08-13] MEDS: (Lantus) Insulin Glargine, Recombinant SC SCH (11:21)
--- NOTE | 2017-08-13 12:09 | CON ---
DATE: INFECTIOUS DISEASE CONSULT REQUESTING PHYSICIAN: Drew Valle DO HISTORY OF PRESENT ILLNESS: This patient is a 57-year-old female. She was actually admitted with dysphagia. She has history of hypertension, hypothyroidism, diabetes, gastroesophageal reflux disease, esophagitis, gastritis, and she had acute kidney failure. She was dialyzed for 4 weeks and then the catheter was removed 5 days ago. The patient came in with dysphagia and was having some epigastric pain and she has lost 15-20 pounds since February. She had an EGD done in [facility], which showed ulceration of her lower esophagus. She is however put on Diflucan at this time. Also she is HIV positive and she was on medications, which she stopped 3 months ago, I am told. This all history have taken from the chart because when I went to see her both her sons were sitting there and it was uncomfortable to ask any questions, as I am told that the children do not know her HIV status, but the knows the HIV status according to the chart review. So, I did not ask many questions. She is also diabetic. She has had difficulty swallowing. No fever. No chills. No nausea. No vomiting. No abdominal pain, but she had renal failure recently, so we have to be careful about medications. She had catheter removed 5 days ago. SURGICAL HISTORY: Significant for Perm-A-Cath before and she has had an endoscopy. SOCIAL HISTORY: Negative for smoking or drugs or alcohol abuse. HOME MEDICATIONS: She was on insulin. REVIEW OF SYSTEMS: She had came in with malaise, weight loss, and weakness. No fever. No chills. No headaches. No ears, nose, throat problems present, but she has dysphagia and heartburn. She is constipated. No urinary problems. No joint problems, but she has generalized weakness. No psych issues reported except and never smoked. She has history of hypertension. ALLERGIES: SHE IS ALLERGIC TO PENICILLIN. PHYSICAL EXAMINATION: GENERAL/VITAL SIGNS: She is a very thin built fair lady with temperature is 97.7, pulse 69, blood pressure 115/69, and respirations 20. She appears chronically ill. HEENT: Head is atraumatic, normocephalic. Pupils are reacting to light. Tongue is moist. NECK: Supple. LUNGS: Clear. No crackles or rales present. HEART: S1 and S2 regular. No murmurs appreciated. ABDOMEN: Soft. No guarding. No rigidity present. EXTREMITIES: No edema, clubbing, or cyanosis. Her affect was flat. SKIN: Intact. LABORATORY DATA: Labs show; actually UA has 1+ protein, 2+ glucose. She is diabetic. Her RPR came out negative. HIV is positive. Hepatitis C and B are negative. negative. She has sodium 135, potassium 4.1, chlorides are 105, CO2 is 20, BUN is 11, anion gap is 14, creatinine is 1.3, and glucose is 196. Her white count is 3, hemoglobin 8.6, hematocrit 25.3, and platelet count is 122. LDH was 478, which is normal, and at this time the patient's LDH level is negative. Her chest x-ray showed mild venous congestion, small nodular density and left may represent prominent vessel on the end, mild venous congestion and endoscopy is recommended. The patient could not tolerate upper GI exam. She also had head CT, head CT showed no evidence of acute intracranial hemorrhage, intracranial collection, mass affect, or midline shift, mild atrophy, chronic disease, microvascular, white matter ischemic disease, mild chronic. She also had a chest CT on 08/08/2017, which shows particular particulate matter, possibly food identified within the esophagus lumen, possibly esophageal dysmotility of the gastroesophageal reflux. As above incidents 6 mm nodule identified within the superior right breast and they are advising mammography and breast ultrasound. So, at this time I think I am going to hold off the Bactrim, unless we know the C. difficile count, which I may be able to get from previous admissions, if she had that. So, at this time, we will keep her off Bactrim and we will continue with Diflucan to treat the esophagitis and we get a CMV and HSV herpes also. We will follow. Jemal Meneses MD
--- NOTE | 2017-08-13 12:46 | RAD ---
HISTORY: Dysphagia. COMPARISON: None. TECHNIQUE: Single barium contrast esophagram was performed. FINDINGS: Patient tolerated procedure well. ESOPHAGUS: Esophageal mucosa appeared preserved. No evidence of stricture or mass lesion. HIATAL HERNIA: Small hiatus hernia. GASTROESOPHAGEAL REFLUX: Not demonstrated. OTHER FINDINGS: None. IMPRESSION: Small hiatus hernia. Otherwise unremarkable esophagram.
[2017-08-13 18:38] LABS: TOXOPLASMA IGG AB <7.20 IU/mL
[2017-08-13 19:07] LABS: CYTOMEGALOVIRUS AB (IGG) >10.00 U/mL
[2017-08-13 19:52] LABS: CYTOMEGALOVIRUS AB (IGM) <30.00 AU/mL; TOXOPLASMA IGM AB <8.00 AU/mL
--- NOTE | 2017-08-13 21:01 | PN ---
INFECTIOUS DISEASE FOLLOWUP DATE: SUBJECTIVE: The patient is more alert and awake. She is trying to eat. She denies pain today, however, she does not remember why she has HIV or why she does not want to tell me, and she is really confused. knows the medication; NovoLog and levothyroxine. PHYSICAL EXAMINATION GENERAL: She is otherwise awake and in no shortness of breath. VITAL SIGNS: T-max 98, pulse 65, blood pressure 119/69, respirations 20. HEENT: Head is atraumatic. She appears pale. Eye movement unremarkable.. NECK: Supple. LUNGS: Clear. HEART: S1 and S2 is regular. ABDOMEN: Soft and nontender. EXTREMITIES: No edema. LABORATORY DATA: White count is 2.7, hemoglobin 8.9, hematocrit 26.9, platelet count is 115. Her creatinine is 1.4, it is better than yesterday. BUN is 20. Her LDH level was normal. ASSESSMENT AND PLAN: Hence I discontinued Bactrim IV and we are awaiting for the CD4, CD8 count, and HIV viral load to decide whether she will need Bactrim as prophylactics are not medicines as kidneys are getting a little bit better at this time and she has oral candidiasis, may be esophagitis as reported in the CAT scan. We will follow, we will continue Diflucan as ordered and to give further two week to cover for esophagitis. Jemal Meneses MD
--- NOTE | 2017-08-13 21:22 | CP.PCM.PN ---
Subjective - Date & Time of Evaluation Date of Evaluation: 08/13/17 Time of Evaluation: 05:15 - Subjective Subjective: dictated Objective - Vital Signs/Intake and Output Vital Signs (last 24 hours): Temp Pulse Resp BP Pulse Ox 98.0 F 65 20 119/69 100 08/13/17 15:00 08/13/17 15:00 08/13/17 15:00 08/13/17 15:00 08/13/17 15:00 Intake and Output: 08/13/17 08/14/17 18:59 06:59 Intake Total 640 Balance 640 - Medications Medications: Current Medications Benztropine Mesylate (Cogentin) 1 mg PO Q6 PRN PRN Reason: Allergy symptoms Famotidine (Pepcid) 20 mg IVP DAILY [facility] Last Admin: 08/13/17 11:21 Dose: 20 mg Fluconazole (Diflucan) 100 mg PO DAILY [facility] Last Admin: 08/13/17 11:10 Dose: 100 mg Haloperidol (Haldol) 5 mg PO Q6 PRN PRN Reason: Psychosis Heparin Sodium (Porcine) (Heparin) 5,000 units SC Q8 [facility] Last Admin: 08/09/17 05:50 Dose: 5,000 units Hydroxyzine HCl (Atarax) 25 mg PO Q6 PRN PRN Reason: Agitation Last Admin: 08/11/17 17:35 Dose: 25 mg Potassium Chloride/Dextrose/Sod Cl (Potassium Chl 20 Meq In D5-1/2ns) 1,000 mls @ 50 mls/hr IV .Q20H [facility] Last Admin: 08/13/17 05:00 Dose: 50 mls/hr Insulin Glargine (Lantus) 10 unit SC DAILY [facility] Last Admin: 08/13/17 11:21 Dose: 10 u Insulin Human Regular (Novolin R) 0 unit SC ACHS [facility] PRN Reason: Protocol Levothyroxine Sodium (Synthroid) 125 mcg PO DAILY@0630 [facility] Last Admin: 08/13/17 06:07 Dose: 125 mcg Metoclopramide HCl (Reglan) 5 mg IVP Q6 [facility] Last Admin: 08/13/17 18:47 Dose: 5 mg Sertraline HCl (Zoloft) 50 mg PO DAILY [facility] Last Admin: 08/13/17 11:11 Dose: 50 mg Sucralfate (Carafate Oral Susp) 1 gm PO ACBHS [facility] Last Admin: 08/13/17 08:00 Dose: Not Given Trazodone HCl (Desyrel) 50 mg PO HS [facility] Last Admin: 08/12/17 21:16 Dose: 50 mg - Labs Labs: 08/13/17 10:57 08/13/17 10:57 PT 11.2 SECONDS (9.7-12.2) 08/08/17 10:10 INR 1.0 08/08/17 10:10 APTT 25 SECONDS (21-34) 08/08/17 10:10
[2017-08-14] MEDS: Potassium Ch 20mEq in D5-1/2NS 1,000 ML IV SCH ×3 (00:37→21:38)
[2017-08-14] MEDS: Levothyroxine 125 MCG TAB PO SCH (05:32)
[2017-08-14] MEDS: Sucralfate 1 gm/10 ml Oral Susp UD PO SCH ×2 (08:07→21:35)
[2017-08-14] MEDS: (Novolin R) Insulin Human Regular 100 units/ml vial SC SCH ×4 (08:07→21:50)
--- NOTE | 2017-08-14 09:37 | CARD ---
APPROVED REPORT EKG Measurement Heart [id number] <Conclusion> Normal sinus rhythm Normal ECG
--- NOTE | 2017-08-14 09:44 | CP.PCM.PN ---
<Glen Briggs - Last Filed: 08/14/17 14:38> Subjective - Date & Time of Evaluation Date of Evaluation: 08/14/17 Time of Evaluation: 09:42 - Subjective Subjective: PGY1 Note For Dr. Valle HPI: Patient seen and examined at bedside. Doing well. Much more awake and aware. remebers my face but not our conversation yesterday. She is tolerating her diet without any trouble swallowing. No complaints at this time. She is ambulating to the bathroom. Objective - Vital Signs/Intake and Output Vital Signs (last 24 hours): Temp Pulse Resp BP Pulse Ox 98.2 F 75 20 167/89 H 99 08/14/17 07:23 08/14/17 07:23 08/14/17 07:23 08/14/17 07:23 08/14/17 07:23 Intake and Output: 08/14/17 08/14/17 06:59 18:59 Intake Total 1760 Balance 1760 - Medications Medications: Current Medications Benztropine Mesylate (Cogentin) 1 mg PO Q6 PRN PRN Reason: Allergy symptoms Famotidine (Pepcid) 20 mg IVP DAILY [facility] Last Admin: 08/13/17 11:21 Dose: 20 mg Fluconazole (Diflucan) 100 mg PO DAILY [facility] Last Admin: 08/13/17 11:10 Dose: 100 mg Haloperidol (Haldol) 5 mg PO Q6 PRN PRN Reason: Psychosis Heparin Sodium (Porcine) (Heparin) 5,000 units SC Q8 [facility] Last Admin: 08/09/17 05:50 Dose: 5,000 units Hydroxyzine HCl (Atarax) 25 mg PO Q6 PRN PRN Reason: Agitation Last Admin: 08/11/17 17:35 Dose: 25 mg Potassium Chloride/Dextrose/Sod Cl (Potassium Chl 20 Meq In D5-1/2ns) 1,000 mls @ 50 mls/hr IV .Q20H [facility] Last Admin: 08/14/17 03:59 Dose: Not Given Insulin Glargine (Lantus) 10 unit SC DAILY [facility] Last Admin: 08/13/17 11:21 Dose: 10 u Insulin Human Regular (Novolin R) 0 unit SC ACHS [facility] PRN Reason: Protocol Last Admin: 08/14/17 08:07 Dose: 10 unit Levothyroxine Sodium (Synthroid) 125 mcg PO DAILY@0630 [facility] Last Admin: 08/14/17 05:32 Dose: 125 mcg Metoclopramide HCl (Reglan) 5 mg IVP Q6 [facility] Last Admin: 08/14/17 05:31 Dose: 5 mg Sertraline HCl (Zoloft) 50 mg PO DAILY [facility] Last Admin: 08/13/17 11:11 Dose: 50 mg Sucralfate (Carafate Oral Susp) 1 gm PO ACBHS [facility] Last Admin: 08/14/17 08:07 Dose: 1 gm Trazodone HCl (Desyrel) 50 mg PO HS [facility] Last Admin: 08/13/17 22:14 Dose: 50 mg - Labs Labs: 08/13/17 10:57 08/13/17 10:57 PT 11.2 SECONDS (9.7-12.2) 08/08/17 10:10 INR 1.0 08/08/17 10:10 APTT 25 SECONDS (21-34) 08/08/17 10:10 - Constitutional Appears: Well, Non-toxic, No Acute Distress - Head Exam Head Exam: NORMAL INSPECTION - Eye Exam Eye Exam: EOMI - ENT Exam ENT Exam: Mucous Membranes Moist - Respiratory Exam Respiratory Exam: Clear to Ausculation Bilateral, NORMAL BREATHING PATTERN - Cardiovascular Exam Cardiovascular Exam: REGULAR RHYTHM - GI/Abdominal Exam GI & Abdominal Exam: Soft, Normal Bowel Sounds. absent: Distended, Tenderness - Extremities Exam Extremities Exam: absent: Joint Swelling, Tenderness - Neurological Exam Neurological Exam: Alert, Awake, Oriented x3 - Psychiatric Exam Psychiatric exam: Normal Affect, Normal Mood - Skin Skin Exam: Dry, Intact, Normal Color, Warm Assessment and Plan - Assessment and Plan (Free Text) Assessment: AMS 2/2 AIDS Dementia Vs. Opportunistic Inf.? * CT head Negative * MRI - unremarkable * LDH - 478 * CD4 * Viral Load * ID (Gideon) * Continue Diflucan for 2 weeks after discharge * Must r/o infectious causes * EBV * CMV - IgG > 10; IgM <30; Dennotes previous infection, no acute infection * Crypto * RPR - nonreactive * Toxoplasma - IgG < 7.2; IgM < 8 Dysphagia * Chest CT * particulate matter, possibly food, identified within the esophageal lumen intermixed with gas. * Incidental 6mm nodule within superior right breast. * CXR * no acute cardiopulmonary disease * Neck soft tissue CT * Abnormal circumferential thickening noted of the cervical esophagus. findings could be due to reflux esophagitis but esophageal carcinoma is not excluded. * ID (Gideon) * Continue Diflucan for 2 weeks after discharge * D51/2 NS @ 50 * GI consulted, Dr. Cervantes * Diflucan 100mg PO QD * Reglan 5mg ivp q6h * Sucralfate 1 gm po * Barium Swallow - small hiatal hernia, otherwise unremarkable Anemia * monitor * stool occult blood Leukopenia * HIV screen Positive, F/U Confirmatory * hep panel negative visual hallucination * Psychiatry, Dr. Henderson * haloperidol - held due to somnolence * hydroxyzine * zoloft * trazadone - held due to somnolence Hx hypothyroidism * TSH: 27.8 * T3: 2.19 * T4: 0.89 * synthroid 125mcg QD Diabetes * ISS - high * Lantus 10mg SC QD * accuchecks q6h * HgA1C - 7.1 Urinary Retention * Bladder scan * if retaining, Insert pink Prophylaxis * Heparin 5000u sc q8h * Pepcid 20 ivp daily <Drew Valle H - Last Filed: 08/14/17 15:44> Objective - Vital Signs/Intake and Output Vital Signs (last 24 hours): Temp Pulse Resp BP Pulse Ox 98.1 F 67 20 138/77 99 08/14/17 15:00 08/14/17 15:00 08/14/17 15:00 08/14/17 15:00 08/14/17 15:00 Intake and Output: 08/14/17 08/14/17 06:59 18:59 Intake Total 1760 650 Balance 1760 650 - Medications Medications: Current Medications Benztropine Mesylate (Cogentin) 1 mg PO Q6 PRN PRN Reason: Allergy symptoms Famotidine (Pepcid) 20 mg IVP DAILY [facility] Last Admin: 08/14/17 10:45 Dose: 20 mg Fluconazole (Diflucan) 100 mg PO DAILY [facility] Last Admin: 08/14/17 10:48 Dose: 100 mg Haloperidol (Haldol) 5 mg PO Q6 PRN PRN Reason: Psychosis Heparin Sodium (Porcine) (Heparin) 5,000 units SC Q8 [facility] Last Admin: 08/09/17 05:50 Dose: 5,000 units Hydroxyzine HCl (Atarax) 25 mg PO Q6 PRN PRN Reason: Agitation Last Admin: 08/11/17 17:35 Dose: 25 mg Potassium Chloride/Dextrose/Sod Cl (Potassium Chl 20 Meq In D5-1/2ns) 1,000 mls @ 50 mls/hr IV .Q20H [facility] Last Admin: 08/14/17 03:59 Dose: Not Given Insulin Glargine (Lantus) 10 unit SC DAILY [facility] Last Admin: 08/14/17 10:46 Dose: 10 u Insulin Human Regular (Novolin R) 0 unit SC ACHS [facility] PRN Reason: Protocol Last Admin: 08/14/17 11:56 Dose: 6 unit Levothyroxine Sodium (Synthroid) 125 mcg PO DAILY@0630 [facility] Last Admin: 08/14/17 05:32 Dose: 125 mcg Metoclopramide HCl (Reglan) 5 mg IVP Q6 [facility] Last Admin: 08/14/17 11:56 Dose: 5 mg Sertraline HCl (Zoloft) 50 mg PO DAILY [facility] Last Admin: 08/14/17 10:45 Dose: 50 mg Sucralfate (Carafate Oral Susp) 1 gm PO ACBHS [facility] Last Admin: 08/14/17 08:07 Dose: 1 gm Trazodone HCl (Desyrel) 50 mg PO HS [facility] Last Admin: 08/13/17 22:14 Dose: 50 mg - Labs Labs: 08/14/17 11:39 08/14/17 11:39 PT 11.2 SECONDS (9.7-12.2) 08/08/17 10:10 INR 1.0 08/08/17 10:10 APTT 25 SECONDS (21-34) 08/08/17 10:10 Attending/Attestation - Attestation I have personally seen and examined this patient.: Yes I have fully participated in the care of the patient.: Yes I have reviewed all pertinent clinical information, including history, physical exam and plan: Yes Notes (Text): Medical attending: Patient was seen and examined by me, agrees the above note by durable medical equipment technician. The patient today was very awake, very alert she was answering all questions appropriately. As mentioned previously she really wants to keep her HIV status confidential. At this moment were still waiting on CD4 cell count, HIV viral load. As well as paperwork from [facility]. It should be noted that initially the patient came in with chief complaint off difficulty swallowing - however at this time she explains to us that that difficulty has resolved she's been able to eat and drink without any dysphagia or chest pain or abdominal pain. She also had a barium study done as well Thank you very much, at this point were currently waiting on the HIV studies Drew Valle
[2017-08-14] MEDS: (Lantus) Insulin Glargine, Recombinant SC SCH (10:46)
[2017-08-14 11:45] LABS: BASO % 0.5 % (0.0-2.0); EOS % 1.8 % (0.0-4.0); HEMATOCRIT 26.3 % (34.0-47.0); LYMPH # 0.5 K/uL (1.0-4.3); LYMPH % 20.6 % (20.0-40.0); MEAN CELL VOLUME 89.7 fL (81.0-99.0); MEAN CORPUSCULAR HEMOGLOBIN 30.1 pg (27.0-31.0); MEAN CORPUSCULAR HGB CONC 33.6 g/dL (33.0-37.0); MEAN PLATELET VOLUME 8.4 fL (7.2-11.7); MONO # 0.3 K/uL (0.0-0.8); MONO % 10.4 % (0.0-10.0); NRBC % 0.1 % (0.0-2.0); RED CELL DISTRIBUTION WIDTH 14.6 % (11.5-14.5); WHITE BLOOD COUNT 2.6 K/uL (4.8-10.8)
[2017-08-14 12:19] LABS: POTASSIUM 4.6 mmol/L (3.6-5.2)
[2017-08-14 12:21] LABS: BILIRUBIN,TOTAL 0.3 mg/dL (0.2-1.3)
[2017-08-14 12:22] LABS: ALB/GLOB RATIO 0.9 (1.0-2.1); CALCIUM 8.8 mg/dl (8.6-10.4); TOTAL PROTEIN 6.5 g/dL (6.3-8.3)
[2017-08-14] MEDS ORDERED: (Lantus) Insulin Glargine, Recombinant SC SCH (17:03)
--- NOTE | 2017-08-14 20:11 | CP.PCM.PN ---
Subjective - Date & Time of Evaluation Date of Evaluation: 08/14/17 Time of Evaluation: 02:30 - Subjective Subjective: dictated Objective - Vital Signs/Intake and Output Vital Signs (last 24 hours): Temp Pulse Resp BP Pulse Ox 98.1 F 67 20 138/77 99 08/14/17 15:00 08/14/17 15:00 08/14/17 15:00 08/14/17 15:00 08/14/17 15:00 Intake and Output: 08/14/17 08/15/17 18:59 06:59 Intake Total 650 Balance 650 - Medications Medications: Current Medications Benztropine Mesylate (Cogentin) 1 mg PO Q6 PRN PRN Reason: Allergy symptoms Famotidine (Pepcid) 20 mg IVP DAILY [facility] Last Admin: 08/14/17 10:45 Dose: 20 mg Fluconazole (Diflucan) 100 mg PO DAILY [facility] Last Admin: 08/14/17 10:48 Dose: 100 mg Haloperidol (Haldol) 5 mg PO Q6 PRN PRN Reason: Psychosis Heparin Sodium (Porcine) (Heparin) 5,000 units SC Q8 [facility] Last Admin: 08/09/17 05:50 Dose: 5,000 units Hydroxyzine HCl (Atarax) 25 mg PO Q6 PRN PRN Reason: Agitation Last Admin: 08/11/17 17:35 Dose: 25 mg Insulin Human Regular (Novolin R) 0 unit SC ACHS [facility] PRN Reason: Protocol Last Admin: 08/14/17 18:10 Dose: Not Given Levothyroxine Sodium (Synthroid) 125 mcg PO DAILY@0630 [facility] Last Admin: 08/14/17 05:32 Dose: 125 mcg Metoclopramide HCl (Reglan) 5 mg IVP Q6 [facility] Last Admin: 08/14/17 18:11 Dose: 5 mg Sertraline HCl (Zoloft) 50 mg PO DAILY [facility] Last Admin: 08/14/17 10:45 Dose: 50 mg Sucralfate (Carafate Oral Susp) 1 gm PO ACBHS [facility] Last Admin: 08/14/17 08:07 Dose: 1 gm Trazodone HCl (Desyrel) 50 mg PO HS [facility] Last Admin: 08/13/17 22:14 Dose: 50 mg - Labs Labs: 08/14/17 11:39 08/14/17 11:39 PT 11.2 SECONDS (9.7-12.2) 08/08/17 10:10 INR 1.0 08/08/17 10:10 APTT 25 SECONDS (21-34) 08/08/17 10:10
[2017-08-15] MEDS: Levothyroxine 125 MCG TAB PO SCH (05:45)
[2017-08-15] MEDS: Sucralfate 1 gm/10 ml Oral Susp UD PO SCH ×2 (06:55→21:46)
[2017-08-15] MEDS: (Novolin R) Insulin Human Regular 100 units/ml vial SC SCH ×4 (08:55→21:46)
[2017-08-15 09:09] LABS: BASO % 0.8 % (0.0-2.0); EOS # 0.1 K/uL (0.0-0.7); EOS % 2.8 % (0.0-4.0); HEMATOCRIT 26.6 % (34.0-47.0); LYMPH # 0.6 K/uL (1.0-4.3); LYMPH % 29.1 % (20.0-40.0); MEAN CELL VOLUME 88.9 fL (81.0-99.0); MEAN CORPUSCULAR HEMOGLOBIN 29.9 pg (27.0-31.0); MEAN CORPUSCULAR HGB CONC 33.6 g/dL (33.0-37.0); MEAN PLATELET VOLUME 8.3 fL (7.2-11.7); MONO # 0.2 K/uL (0.0-0.8); MONO % 13.2 % (0.0-10.0); NRBC % 0.1 % (0.0-2.0); RED CELL DISTRIBUTION WIDTH 14.5 % (11.5-14.5)
[2017-08-15 09:15] LABS: WHITE BLOOD COUNT 1.9 K/uL (4.8-10.8)
[2017-08-15 09:19] LABS: CHLORIDE 102 mmol/L (98-107)
[2017-08-15 09:20] LABS: POTASSIUM 5.1 mmol/L (3.6-5.2); SODIUM 135 mmol/L (132-148)
[2017-08-15 09:22] LABS: ALB/GLOB RATIO 0.8 (1.0-2.1); ALKALINE PHOSPHATASE 90 U/L (38-126); AST/SGOT 39 U/L (14-36); BILIRUBIN,TOTAL 0.3 mg/dL (0.2-1.3); BLOOD UREA NITROGEN 10 mg/dL (7-17); CARBON DIOXIDE 21 mmol/L (22-30); GFR AFRICAN-AMERICAN > 60; GLUCOSE,RANDOM 319 mg/dL (65-105); TOTAL PROTEIN 6.5 g/dL (6.3-8.3)
[2017-08-15 09:23] LABS: ALT/SGPT 33 U/L (9-52); CALCIUM 8.9 mg/dl (8.6-10.4)
--- NOTE | 2017-08-15 09:47 | CP.PCM.PN ---
<Rika Lopez - Last Filed: 08/15/17 17:54> Subjective - Date & Time of Evaluation Date of Evaluation: 08/15/17 Time of Evaluation: 07:40 - Subjective Subjective: Medicine Progress Note: Patient was seen and examined at bedside in the AM. Patient states she knows she is in the hospital, it is currently 1998 and Jessica is the president. She states she has been eating and drinking well. Per nurse the patient is eating about 55-60%. Patient denies nausea, vomiting or fever. Objective - Vital Signs/Intake and Output Vital Signs (last 24 hours): Temp Pulse Resp BP Pulse Ox 98.3 F 63 20 161/80 H 100 08/15/17 08:20 08/15/17 08:20 08/15/17 08:20 08/15/17 08:20 08/15/17 08:20 Intake and Output: 08/15/17 08/15/17 06:59 18:59 Intake Total 1425 Balance 1425 - Medications Medications: Current Medications Benztropine Mesylate (Cogentin) 1 mg PO Q6 PRN PRN Reason: Allergy symptoms Famotidine (Pepcid) 20 mg IVP DAILY [facility] Last Admin: 08/14/17 10:45 Dose: 20 mg Fluconazole (Diflucan) 100 mg PO DAILY [facility] Last Admin: 08/14/17 10:48 Dose: 100 mg Haloperidol (Haldol) 5 mg PO Q6 PRN PRN Reason: Psychosis Heparin Sodium (Porcine) (Heparin) 5,000 units SC Q8 [facility] Last Admin: 08/15/17 05:45 Dose: 5,000 units Hydroxyzine HCl (Atarax) 25 mg PO Q6 PRN PRN Reason: Agitation Last Admin: 08/11/17 17:35 Dose: 25 mg Insulin Human Regular (Novolin R) 0 unit SC ACHS [facility] PRN Reason: Protocol Last Admin: 08/15/17 08:55 Dose: 6 unit Levothyroxine Sodium (Synthroid) 125 mcg PO DAILY@0630 [facility] Last Admin: 08/15/17 05:45 Dose: 125 mcg Metoclopramide HCl (Reglan) 5 mg IVP Q6 [facility] Last Admin: 08/15/17 05:45 Dose: 5 mg Sertraline HCl (Zoloft) 50 mg PO DAILY [facility] Last Admin: 08/14/17 10:45 Dose: 50 mg Sucralfate (Carafate Oral Susp) 1 gm PO ACBHS [facility] Last Admin: 08/15/17 06:55 Dose: 1 gm Trazodone HCl (Desyrel) 50 mg PO HS [facility] Last Admin: 08/14/17 21:36 Dose: 50 mg - Labs Labs: 08/15/17 08:58 08/15/17 08:58 PT 11.2 SECONDS (9.7-12.2) 08/08/17 10:10 INR 1.0 08/08/17 10:10 APTT 25 SECONDS (21-34) 08/08/17 10:10 - Constitutional Appears: No Acute Distress - Head Exam Head Exam: ATRAUMATIC, NORMAL INSPECTION, NORMOCEPHALIC - Eye Exam Eye Exam: EOMI, Normal appearance - ENT Exam ENT Exam: Mucous Membranes Moist - Respiratory Exam Respiratory Exam: Clear to Ausculation Bilateral, NORMAL BREATHING PATTERN - Cardiovascular Exam Cardiovascular Exam: REGULAR RHYTHM, +S1, +S2 - GI/Abdominal Exam GI & Abdominal Exam: Soft, Normal Bowel Sounds. absent: Tenderness - Extremities Exam Extremities Exam: Normal Inspection. absent: Joint Swelling, Pedal Edema, Tenderness - Neurological Exam Neurological Exam: Alert, Awake. 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 Opportunistic Infection ID Dr. Meneses --> help appreciated * Continue Diflucan for 2 weeks after discharge - CT head Negative - MRI - unremarkable - LDH - 478 - f/u CD4 - f/u Viral Load Must r/o infectious causes * EBV * CMV - IgG > 10; IgM <30; Dennotes previous infection, no acute infection * f/u Crypto * RPR - nonreactive * Toxoplasma - IgG < 7.2; IgM < 8 2.) Dysphagia Chest CT * particulate matter, possibly food, identified within the esophageal lumen intermixed with gas. * Incidental 6mm nodule within superior right breast. CXR * no acute cardiopulmonary disease Neck soft tissue CT * Abnormal circumferential thickening noted of the cervical esophagus. findings could be due to reflux esophagitis but esophageal carcinoma is not excluded. GI consulted, Dr. Cervantes --> help appreciated Barium Swallow - small hiatal hernia, otherwise unremarkable * Diflucan 100mg PO QD * Sucralfate 1 gm po 3.) Anemia * monitor 4.) Leukopenia * HIV screen Positive, F/U Confirmatory * hep panel negative 5.) visual hallucination Psychiatry, Dr. Henderson --> help appreciated * haloperidol - held due to somnolence * hydroxyzine * zoloft * trazadone 50mg PO HS 6.) History of hypothyroidism - TSH: 27.8 - T3: 2.19 - T4: 0.89 * Synthroid 125mcg QD 7.) Diabetes HgA1C - 7.1 accuchecks q6h * ISS - high * Lantus 10mg SC QD 8.) Urinary Retention * Bladder scan * if retaining, Insert pink 9.) Prophylaxis * Heparin 5000u sc q8h * Pepcid 20 ivp daily <Drew Valle H - Last Filed: 08/15/17 18:13> Objective - Vital Signs/Intake and Output Vital Signs (last 24 hours): Temp Pulse Resp BP Pulse Ox 98.3 F 70 20 127/76 99 08/15/17 16:00 08/15/17 16:00 08/15/17 16:00 08/15/17 16:00 08/15/17 16:00 Intake and Output: 08/15/17 08/15/17 06:59 18:59 Intake Total 1425 640 Balance 1425 640 - Medications Medications: Current Medications Benztropine Mesylate (Cogentin) 1 mg PO Q6 PRN PRN Reason: Allergy symptoms Famotidine (Pepcid) 20 mg IVP DAILY [facility] Last Admin: 08/15/17 11:26 Dose: 20 mg Fluconazole (Diflucan) 100 mg PO DAILY [facility] Last Admin: 08/15/17 11:18 Dose: 100 mg Haloperidol (Haldol) 5 mg PO Q6 PRN PRN Reason: Psychosis Heparin Sodium (Porcine) (Heparin) 5,000 units SC Q8 [facility] Last Admin: 08/15/17 14:08 Dose: 5,000 units Hydroxyzine HCl (Atarax) 25 mg PO Q6 PRN PRN Reason: Agitation Last Admin: 08/11/17 17:35 Dose: 25 mg Insulin Human Regular (Novolin R) 0 unit SC ACHS [facility] PRN Reason: Protocol Last Admin: 08/15/17 12:12 Dose: 6 unit Levothyroxine Sodium (Synthroid) 125 mcg PO DAILY@0630 [facility] Last Admin: 08/15/17 05:45 Dose: 125 mcg Sertraline HCl (Zoloft) 50 mg PO DAILY [facility] Last Admin: 08/15/17 11:19 Dose: 50 mg Sucralfate (Carafate Oral Susp) 1 gm PO ACBHS [facility] Last Admin: 08/15/17 06:55 Dose: 1 gm Trazodone HCl (Desyrel) 50 mg PO HS [facility] Last Admin: 08/14/17 21:36 Dose: 50 mg - Labs Labs: 08/15/17 08:58 08/15/17 08:58 PT 11.2 SECONDS (9.7-12.2) 08/08/17 10:10 INR 1.0 08/08/17 10:10 APTT 25 SECONDS (21-34) 08/08/17 10:10 Attending/Attestation - Attestation I have personally seen and examined this patient.: Yes I have fully participated in the care of the patient.: Yes I have reviewed all pertinent clinical information, including history, physical exam and plan: Yes Notes (Text): 08/15/17 18:11 Medical Attending: Patient was seen and examined by me. Agree with the above note by the resident. The patient was examined today and it was noted by the resident, and I agree, that today her affect seemed slower than previous. She was able to walk and participate with physical therapy. At this moment we are pending CD4 and CD8 studies. HIV Viral load as well thank you Drew Valle
--- NOTE | 2017-08-15 10:29 | PN ---
INFECTIOUS DISEASE FOLLOWUP DATE: SUBJECTIVE: Patient is afebrile. She is more alert, oriented. She has been eating better. She denies any pain. PHYSICAL EXAMINATION: VITAL SIGNS: T-max is 98.1, pulse 67, blood pressure 138/77, respirations are 20. She did not want me to talk about her HIV disease. She says there are lot of people in this room. It is a double 4-bedded room. I told her that will discuss that later than. I am waiting for the CD4 and CD8 count and HIV viral load. Also we will order a gold QuantiFERON test just to complete the list. She is however forgetful. LUNGS: Clear. HEART: S1 and S2 is regular. ABDOMEN: Soft, nontender. EXTREMITIES: Have no edema, clubbing or cyanosis. If she continues to eat well, she needs to continue Diflucan for 10 days and her HIV medications can be started as outpatient. Jemal Meneses MD
--- NOTE | 2017-08-15 17:04 | CP.PCM.PN ---
Subjective - Date & Time of Evaluation Date of Evaluation: 08/15/17 Time of Evaluation: 03:00 - Subjective Subjective: dictated Objective - Vital Signs/Intake and Output Vital Signs (last 24 hours): Temp Pulse Resp BP Pulse Ox 98.3 F 70 20 127/76 99 08/15/17 16:00 08/15/17 16:00 08/15/17 16:00 08/15/17 16:00 08/15/17 16:00 Intake and Output: 08/15/17 08/15/17 06:59 18:59 Intake Total 1425 640 Balance 1425 640 - Medications Medications: Current Medications Benztropine Mesylate (Cogentin) 1 mg PO Q6 PRN PRN Reason: Allergy symptoms Famotidine (Pepcid) 20 mg IVP DAILY [facility] Last Admin: 08/15/17 11:26 Dose: 20 mg Fluconazole (Diflucan) 100 mg PO DAILY [facility] Last Admin: 08/15/17 11:18 Dose: 100 mg Haloperidol (Haldol) 5 mg PO Q6 PRN PRN Reason: Psychosis Heparin Sodium (Porcine) (Heparin) 5,000 units SC Q8 [facility] Last Admin: 08/15/17 14:08 Dose: 5,000 units Hydroxyzine HCl (Atarax) 25 mg PO Q6 PRN PRN Reason: Agitation Last Admin: 08/11/17 17:35 Dose: 25 mg Insulin Human Regular (Novolin R) 0 unit SC ACHS [facility] PRN Reason: Protocol Last Admin: 08/15/17 12:12 Dose: 6 unit Levothyroxine Sodium (Synthroid) 125 mcg PO DAILY@0630 [facility] Last Admin: 08/15/17 05:45 Dose: 125 mcg Sertraline HCl (Zoloft) 50 mg PO DAILY [facility] Last Admin: 08/15/17 11:19 Dose: 50 mg Sucralfate (Carafate Oral Susp) 1 gm PO ACBHS [facility] Last Admin: 08/15/17 06:55 Dose: 1 gm Trazodone HCl (Desyrel) 50 mg PO HS [facility] Last Admin: 08/14/17 21:36 Dose: 50 mg - Labs Labs: 08/15/17 08:58 08/15/17 08:58 PT 11.2 SECONDS (9.7-12.2) 08/08/17 10:10 INR 1.0 08/08/17 10:10 APTT 25 SECONDS (21-34) 08/08/17 10:10
--- NOTE | 2017-08-15 22:18 | PN ---
DATE: This is the patient of Dr. Drew Valle. She is looking better, eating better; however, she remains neutropenic. Hence, I would give her Neupogen at this time. 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 I am still waiting for the CD4 count and it seems that if she is having neutropenia it may be really bad. Since she has oral thrush, we will put her on Bactrim, but with the neutropenia the Bactrim will make it worse. So, we will hold off on that for now and give Neupogen and once it comes up he may take Bactrim. The patient came in with dysphagia, HIV disease, and has neutropenia. At this time, it may be related to HIV disease and bone marrow suppression. If white count remains low we should get heme/onc to follow her. Jemal Meneses MD
[2017-08-16] MEDS: Levothyroxine 125 MCG TAB PO SCH (05:50)
[2017-08-16] MEDS: Sucralfate 1 gm/10 ml Oral Susp UD PO SCH ×2 (07:00→21:47)
[2017-08-16 08:10] LABS: BASO % 0.2 % (0.0-2.0); EOS # 0.1 K/uL (0.0-0.7); EOS % 0.7 % (0.0-4.0); HEMATOCRIT 26.6 % (34.0-47.0); LYMPH # 0.9 K/uL (1.0-4.3); MEAN CELL VOLUME 88.8 fL (81.0-99.0); MEAN CORPUSCULAR HEMOGLOBIN 29.7 pg (27.0-31.0); MEAN CORPUSCULAR HGB CONC 33.5 g/dL (33.0-37.0); MEAN PLATELET VOLUME 8.9 fL (7.2-11.7); MONO # 0.6 K/uL (0.0-0.8); MONO % 4.6 % (0.0-10.0); NRBC % 0.1 % (0.0-2.0); PLATELET COUNT 118 K/uL (130-400); RED CELL DISTRIBUTION WIDTH 14.6 % (11.5-14.5)
[2017-08-16 08:17] LABS: WHITE BLOOD COUNT 13.3 K/uL (4.8-10.8)
[2017-08-16 08:24] LABS: CHLORIDE 102 mmol/L (98-107); POTASSIUM 4.8 mmol/L (3.6-5.2); SODIUM 135 mmol/L (132-148)
[2017-08-16 08:26] LABS: AST/SGOT 44 U/L (14-36); BILIRUBIN,TOTAL 0.3 mg/dL (0.2-1.3); CARBON DIOXIDE 22 mmol/L (22-30); GFR AFRICAN-AMERICAN > 60
[2017-08-16 08:27] LABS: ALB/GLOB RATIO 0.8 (1.0-2.1); ALKALINE PHOSPHATASE 119 U/L (38-126); ALT/SGPT 37 U/L (9-52); BLOOD UREA NITROGEN 14 mg/dL (7-17); CALCIUM 9.1 mg/dl (8.6-10.4); GLUCOSE,RANDOM 305 mg/dL (65-105); TOTAL PROTEIN 6.7 g/dL (6.3-8.3)
[2017-08-16] MEDS: (Novolin R) Insulin Human Regular 100 units/ml vial SC SCH ×4 (08:37→21:48)
--- NOTE | 2017-08-16 09:15 | CP.PCM.PN ---
Subjective - Date & Time of Evaluation Date of Evaluation: 08/16/17 Time of Evaluation: 09:12 - Subjective Subjective: PGY1 Note for Dr. Valle HPI: patient seen and examined at bedside. Still confused. States she is tolerating diet well. Ambulating much better. No other complaints at this time. Objective - Vital Signs/Intake and Output Vital Signs (last 24 hours): Temp Pulse Resp BP Pulse Ox 97 F L 65 21 148/75 97 08/16/17 08:05 08/16/17 08:05 08/16/17 08:05 08/16/17 08:05 08/16/17 08:05 Intake and Output: 08/16/17 08/16/17 06:59 18:59 Intake Total 300 Balance 300 - Medications Medications: Current Medications Benztropine Mesylate (Cogentin) 1 mg PO Q6 PRN PRN Reason: Allergy symptoms Famotidine (Pepcid) 20 mg PO DAILY [facility] Fluconazole (Diflucan) 100 mg PO DAILY [facility] Last Admin: 08/15/17 11:18 Dose: 100 mg Haloperidol (Haldol) 5 mg PO Q6 PRN PRN Reason: Psychosis Heparin Sodium (Porcine) (Heparin) 5,000 units SC Q8 [facility] Last Admin: 08/16/17 05:50 Dose: 5,000 units Hydroxyzine HCl (Atarax) 25 mg PO Q6 PRN PRN Reason: Agitation Last Admin: 08/11/17 17:35 Dose: 25 mg Trimethoprim/Sulfamethoxazole (250 mg/ Dextrose) 100 mls @ 100 mls/hr IVPB Q8H [facility] Insulin Human Regular (Novolin R) 0 unit SC ACHS [facility] PRN Reason: Protocol Last Admin: 08/16/17 08:37 Dose: 10 unit Levothyroxine Sodium (Synthroid) 125 mcg PO DAILY@0630 [facility] Last Admin: 08/16/17 05:50 Dose: 125 mcg Sertraline HCl (Zoloft) 50 mg PO DAILY [facility] Last Admin: 08/15/17 11:19 Dose: 50 mg Sucralfate (Carafate Oral Susp) 1 gm PO ACBHS [facility] Last Admin: 08/16/17 07:00 Dose: 1 gm Trazodone HCl (Desyrel) 50 mg PO HS [facility] Last Admin: 08/15/17 21:46 Dose: 50 mg - Labs Labs: 08/16/17 07:50 08/16/17 07:50 PT 11.2 SECONDS (9.7-12.2) 08/08/17 10:10 INR 1.0 08/08/17 10:10 APTT 25 SECONDS (21-34) 08/08/17 10:10 - Constitutional Appears: Non-toxic, No Acute Distress, Confused - Head Exam Head Exam: ATRAUMATIC, NORMAL INSPECTION, NORMOCEPHALIC - Eye Exam Eye Exam: EOMI Pupil Exam: NORMAL ACCOMODATION - ENT Exam ENT Exam: Mucous Membranes Moist - Respiratory Exam Respiratory Exam: Clear to Ausculation Bilateral, NORMAL BREATHING PATTERN - Cardiovascular Exam Cardiovascular Exam: REGULAR RHYTHM - GI/Abdominal Exam GI & Abdominal Exam: Soft, Normal Bowel Sounds. 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 Opportunistic Infection ID Dr. Meneses --> help appreciated * Continue Diflucan for 2 weeks after discharge - CT head Negative - MRI - unremarkable - LDH - 478 - f/u CD4 - f/u Viral Load Must r/o infectious causes * EBV * CMV - IgG > 10; IgM <30; Dennotes previous infection, no acute infection * f/u Crypto * RPR - nonreactive * Toxoplasma - IgG < 7.2; IgM < 8 2.) Dysphagia Chest CT * particulate matter, possibly food, identified within the esophageal lumen intermixed with gas. * Incidental 6mm nodule within superior right breast. CXR * no acute cardiopulmonary disease Neck soft tissue CT * Abnormal circumferential thickening noted of the cervical esophagus. findings could be due to reflux esophagitis but esophageal carcinoma is not excluded. GI consulted, Dr. Cervantes --> help appreciated Barium Swallow - small hiatal hernia, otherwise unremarkable * Diflucan 100mg PO QD * Sucralfate 1 gm po 3.) Anemia * monitor 4.) Leukopenia * HIV screen Positive, F/U Confirmatory * hep panel negative 5.) visual hallucination Psychiatry, Dr. Henderson --> help appreciated * haloperidol - held due to somnolence * hydroxyzine * zoloft * trazadone 50mg PO HS 6.) History of hypothyroidism - TSH: 27.8 - T3: 2.19 - T4: 0.89 * Synthroid 125mcg QD 7.) Diabetes HgA1C - 7.1 accuchecks q6h * ISS - high * Lantus 10mg SC QD 8.) Urinary Retention * Bladder scan * if retaining, Insert pink 9.) Prophylaxis * Heparin 5000u sc q8h * Pepcid 20 ivp daily
[2017-08-16 10:35] LABS: METAMYELOCYTE 1 % (0-0); NEUTROPHIL 60 % (50-75); TOTAL CELLS COUNTED 100
[2017-08-16] MEDS: TRIMETHOPRIM IVPB SCH ×2 (10:48→18:35)
[2017-08-16] MEDS: WATER IVPB SCH ×2 (10:48→18:35)
[2017-08-16] MEDS: DEXTROSE 5% IVPB SCH ×2 (10:48→18:35)
[2017-08-16] MEDS: SULFAMETHOXAZOLE IVPB SCH ×2 (10:48→18:35)
[2017-08-16 16:18] LABS: EBV EA (D) AB IgG >150.00 U/mL (<9.00)
--- NOTE | 2017-08-17 01:31 | CP.PCM.PN ---
<Glen Briggs - Last Filed: 08/17/17 01:28> Subjective - Date & Time of Evaluation Date of Evaluation: 08/17/17 Time of Evaluation: 01:28 - Subjective Subjective: PGY1 Note for Dr. Valle HPI: patient seen and examined at bedside. Still confused. States she is tolerating diet well. Ambulating much better. No other complaints at this time. Objective - Vital Signs/Intake and Output Vital Signs (last 24 hours): Temp Pulse Resp BP Pulse Ox 96.6 F L 66 18 136/70 99 08/16/17 23:00 08/16/17 23:00 08/16/17 23:00 08/16/17 23:00 08/16/17 23:00 Intake and Output: 08/16/17 08/17/17 18:59 06:59 Intake Total 400 670 Balance 400 670 - Medications Medications: Current Medications Benztropine Mesylate (Cogentin) 1 mg PO Q6 PRN PRN Reason: Allergy symptoms Famotidine (Pepcid) 20 mg PO DAILY [facility] Last Admin: 08/16/17 10:46 Dose: 20 mg Fluconazole (Diflucan) 100 mg PO DAILY [facility] Last Admin: 08/16/17 10:47 Dose: 100 mg Haloperidol (Haldol) 5 mg PO Q6 PRN PRN Reason: Psychosis Heparin Sodium (Porcine) (Heparin) 5,000 units SC Q8 [facility] Last Admin: 08/16/17 21:47 Dose: 5,000 units Hydroxyzine HCl (Atarax) 25 mg PO Q6 PRN PRN Reason: Agitation Last Admin: 08/11/17 17:35 Dose: 25 mg Trimethoprim/Sulfamethoxazole (250 mg/ Dextrose) 250 mls @ 250 mls/hr IVPB Q8H [facility] Last Admin: 08/16/17 18:35 Dose: 250 mls/hr Insulin Human Regular (Novolin R) 0 unit SC ACHS [facility] PRN Reason: Protocol Last Admin: 08/16/17 21:48 Dose: Not Given Levothyroxine Sodium (Synthroid) 125 mcg PO DAILY@0630 [facility] Last Admin: 08/16/17 05:50 Dose: 125 mcg Sertraline HCl (Zoloft) 50 mg PO DAILY [facility] Last Admin: 08/16/17 10:47 Dose: 50 mg Sucralfate (Carafate Oral Susp) 1 gm PO ACBHS [facility] Last Admin: 08/16/17 21:47 Dose: 1 gm Trazodone HCl (Desyrel) 50 mg PO HS [facility] Last Admin: 08/16/17 21:47 Dose: 50 mg - Labs Labs: 08/16/17 07:50 08/16/17 07:50 PT 11.2 SECONDS (9.7-12.2) 08/08/17 10:10 INR 1.0 08/08/17 10:10 APTT 25 SECONDS (21-34) 08/08/17 10:10 - Constitutional Appears: Well, Non-toxic, No Acute Distress, Confused - Head Exam Head Exam: ATRAUMATIC, NORMAL INSPECTION, NORMOCEPHALIC - Eye Exam Eye Exam: EOMI Pupil Exam: NORMAL ACCOMODATION - ENT Exam ENT Exam: Mucous Membranes Moist - Respiratory Exam Respiratory Exam: Clear to Ausculation Bilateral, NORMAL BREATHING PATTERN - Cardiovascular Exam Cardiovascular Exam: REGULAR RHYTHM - GI/Abdominal Exam GI & Abdominal Exam: Soft, Normal Bowel Sounds. 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 Opportunistic Infection ID Dr. Meneses --> help appreciated * Continue Diflucan for 2 weeks after discharge - CT head Negative - MRI - unremarkable - LDH - 478 - f/u CD4 - f/u Viral Load Must r/o infectious causes * EBV * CMV - IgG > 10; IgM <30; Dennotes previous infection, no acute infection * f/u Crypto * RPR - nonreactive * Toxoplasma - IgG < 7.2; IgM < 8 Bandemia/elevated WBC - Started bactrim (08/16/17) 2.) Dysphagia Chest CT * particulate matter, possibly food, identified within the esophageal lumen intermixed with gas. * Incidental 6mm nodule within superior right breast. CXR * no acute cardiopulmonary disease Neck soft tissue CT * Abnormal circumferential thickening noted of the cervical esophagus. findings could be due to reflux esophagitis but esophageal carcinoma is not excluded. GI consulted, Dr. Cervantes --> help appreciated Barium Swallow - small hiatal hernia, otherwise unremarkable * Diflucan 100mg PO QD * Sucralfate 1 gm po 3.) Anemia * monitor 4.) Leukopenia * HIV screen Positive, F/U Confirmatory * hep panel negative 5.) visual hallucination Psychiatry, Dr. Henderson --> help appreciated * haloperidol - held due to somnolence * hydroxyzine * zoloft * trazadone 50mg PO HS 6.) History of hypothyroidism - TSH: 27.8 - T3: 2.19 - T4: 0.89 * Synthroid 125mcg QD 7.) Diabetes HgA1C - 7.1 accuchecks q6h * ISS - high * Lantus 10mg SC QD 8.) Urinary Retention * Bladder scan * if retaining, Insert pink 9.) Prophylaxis * Heparin 5000u sc q8h * Pepcid 20 ivp daily <Drew Valle - Last Filed: 08/17/17 11:12> Objective - Vital Signs/Intake and Output Vital Signs (last 24 hours): Temp Pulse Resp BP Pulse Ox 98.4 F 69 20 141/77 97 08/17/17 07:21 08/17/17 07:21 08/17/17 07:21 08/17/17 07:21 08/17/17 07:21 Intake and Output: 08/17/17 08/17/17 06:59 18:59 Intake Total 1120 Output Total 20 Balance 1100 - Medications Medications: Current Medications Benztropine Mesylate (Cogentin) 1 mg PO Q6 PRN PRN Reason: Allergy symptoms Famotidine (Pepcid) 20 mg PO DAILY [facility] Last Admin: 08/17/17 10:19 Dose: 20 mg Fluconazole (Diflucan) 100 mg PO DAILY [facility] Last Admin: 08/16/17 10:47 Dose: 100 mg Haloperidol (Haldol) 5 mg PO Q6 PRN PRN Reason: Psychosis Heparin Sodium (Porcine) (Heparin) 5,000 units SC Q8 [facility] Last Admin: 08/17/17 05:30 Dose: 5,000 units Hydroxyzine HCl (Atarax) 25 mg PO Q6 PRN PRN Reason: Agitation Last Admin: 08/11/17 17:35 Dose: 25 mg Trimethoprim/Sulfamethoxazole (250 mg/ Dextrose) 250 mls @ 250 mls/hr IVPB Q8H [facility] Last Admin: 08/17/17 10:25 Dose: 250 mls/hr Insulin Human Regular (Novolin R) 0 unit SC ACHS [facility] PRN Reason: Protocol Last Admin: 08/17/17 08:23 Dose: 10 unit Levothyroxine Sodium (Synthroid) 125 mcg PO DAILY@0630 [facility] Last Admin: 08/17/17 05:30 Dose: 125 mcg Sertraline HCl (Zoloft) 50 mg PO DAILY [facility] Last Admin: 08/17/17 10:19 Dose: 50 mg Sucralfate (Carafate Oral Susp) 1 gm PO ACBHS [facility] Last Admin: 08/17/17 06:30 Dose: 1 gm Trazodone HCl (Desyrel) 50 mg PO HS [facility] Last Admin: 08/16/17 21:47 Dose: 50 mg - Labs Labs: 08/17/17 07:25 08/17/17 07:25 PT 11.2 SECONDS (9.7-12.2) 08/08/17 10:10 INR 1.0 08/08/17 10:10 APTT 25 SECONDS (21-34) 08/08/17 10:10 Attending/Attestation - Attestation I have personally seen and examined this patient.: Yes I have fully participated in the care of the patient.: Yes I have reviewed all pertinent clinical information, including history, physical exam and plan: Yes Notes (Text): 08/17/17 11:09 Medical Attending: Patient was seen and examined by me Agree with the above note by the resident The patient WBC increased to 18, will check blood culture, urine culture. The patient reported that she felt ok. She is ambulating, denied fever, denied vommitting. She is able to tolerate food, however appettie was reported as less today At this moment we are still pending the CD4/CD8 as well as HIV viral load thank you Drew Valle 08/17/17 11:12
[2017-08-17] MEDS: SULFAMETHOXAZOLE IVPB SCH ×3 (01:55→17:04)
[2017-08-17] MEDS: WATER IVPB SCH ×3 (01:55→17:04)
[2017-08-17] MEDS: TRIMETHOPRIM IVPB SCH ×3 (01:55→17:04)
[2017-08-17] MEDS: DEXTROSE 5% IVPB SCH ×3 (01:55→17:04)
[2017-08-17] MEDS: Levothyroxine 125 MCG TAB PO SCH (05:30)
[2017-08-17] MEDS: Sucralfate 1 gm/10 ml Oral Susp UD PO SCH ×2 (06:30→23:00)
[2017-08-17 07:42] LABS: BASO % 0.2 % (0.0-2.0); EOS # 0.1 K/uL (0.0-0.7); EOS % 0.7 % (0.0-4.0); HEMATOCRIT 24.3 % (34.0-47.0); LYMPH # 0.8 K/uL (1.0-4.3); LYMPH % 4.4 % (20.0-40.0); MEAN CELL VOLUME 88.6 fL (81.0-99.0); MEAN CORPUSCULAR HEMOGLOBIN 29.9 pg (27.0-31.0); MEAN CORPUSCULAR HGB CONC 33.7 g/dL (33.0-37.0); MEAN PLATELET VOLUME 9.2 fL (7.2-11.7); MONO # 0.8 K/uL (0.0-0.8); MONO % 4.1 % (0.0-10.0); PLATELET COUNT 113 K/uL (130-400); RED CELL DISTRIBUTION WIDTH 14.5 % (11.5-14.5); WHITE BLOOD COUNT 18.5 K/uL (4.8-10.8)
[2017-08-17 07:59] LABS: POTASSIUM 5.3 mmol/L (3.6-5.2)
[2017-08-17 08:01] LABS: ALB/GLOB RATIO 0.9 (1.0-2.1); BILIRUBIN,TOTAL 0.2 mg/dL (0.2-1.3); TOTAL PROTEIN 6.2 g/dL (6.3-8.3)
[2017-08-17 08:02] LABS: CALCIUM 8.9 mg/dl (8.6-10.4)
[2017-08-17] MEDS: (Novolin R) Insulin Human Regular 100 units/ml vial SC SCH ×3 (08:23→21:29)
[2017-08-17 08:58] LABS: EOSINOPHIL 1 % (0-4); NEUTROPHIL 79 % (50-75); TOTAL CELLS COUNTED 100
[2017-08-18] MEDS: WATER IVPB SCH ×3 (01:59→18:09)
[2017-08-18] MEDS: DEXTROSE 5% IVPB SCH ×3 (01:59→18:09)
[2017-08-18] MEDS: SULFAMETHOXAZOLE IVPB SCH ×3 (01:59→18:09)
[2017-08-18] MEDS: TRIMETHOPRIM IVPB SCH ×3 (01:59→18:09)
[2017-08-18] MEDS: Levothyroxine 125 MCG TAB PO SCH (05:51)
[2017-08-18 08:10] LABS: BASO % 0.3 % (0.0-2.0); EOS # 0.1 K/uL (0.0-0.7); EOS % 0.7 % (0.0-4.0); HEMATOCRIT 25.1 % (34.0-47.0); LYMPH % 7.4 % (20.0-40.0); MEAN CELL VOLUME 89.9 fL (81.0-99.0); MEAN CORPUSCULAR HEMOGLOBIN 29.9 pg (27.0-31.0); MEAN CORPUSCULAR HGB CONC 33.3 g/dL (33.0-37.0); MEAN PLATELET VOLUME 9.1 fL (7.2-11.7); MONO # 0.7 K/uL (0.0-0.8); MONO % 5.6 % (0.0-10.0); PLATELET COUNT 114 K/uL (130-400); RED CELL DISTRIBUTION WIDTH 14.2 % (11.5-14.5); WHITE BLOOD COUNT 13.1 K/uL (4.8-10.8)
[2017-08-18 08:11] LABS: POTASSIUM 5.9 mmol/L (3.6-5.2)
[2017-08-18 08:14] LABS: ALB/GLOB RATIO 0.9 (1.0-2.1); BILIRUBIN,TOTAL 0.4 mg/dL (0.2-1.3); CALCIUM 8.8 mg/dl (8.6-10.4); TOTAL PROTEIN 6.4 g/dL (6.3-8.3)
[2017-08-18] MEDS: (Novolin R) Insulin Human Regular 100 units/ml vial SC SCH ×4 (08:26→21:31)
[2017-08-18] MEDS: Sucralfate 1 gm/10 ml Oral Susp UD PO SCH ×2 (08:28→21:31)
[2017-08-18 09:42] LABS: NEUTROPHIL 83 % (50-75); TOTAL CELLS COUNTED 100
[2017-08-18] MEDS ORDERED: (Novolin R) Insulin Human Regular 100 units/ml vial IV STA (11:53)
[2017-08-18] MEDS ORDERED: Dextrose 50% SYRINGE Inj (50 ml) IV STA (11:54)
[2017-08-18 12:54] LABS: POTASSIUM 4.8 mmol/L (3.6-5.2)
[2017-08-18 12:58] LABS: CALCIUM 9.6 mg/dl (8.6-10.4)
--- NOTE | 2017-08-18 16:12 | CP.PCM.PN ---
<Rupesh Sahu - Last Filed: 08/18/17 18:17> Subjective - Date & Time of Evaluation Date of Evaluation: 08/18/17 Time of Evaluation: 09:45 - Subjective Subjective: PGY1 Medicine Note for Dr. Arias Patient seen and examined at bedside this morning. Patient is awake, answering questions, oriented to self and place but not time. This is a vast improvement since this resident last observed her last week. Patient states she feels well and does not have any complaints except some lethargy. She states she does not know how she contracted HIV, believes it may have been due to a blood transfusion back in the mid . Patient denies difficulty swallowing. Denies f/c, n/v, d/c, sob, cp or headache. Objective - Vital Signs/Intake and Output Vital Signs (last 24 hours): Temp Pulse Resp BP Pulse Ox 98 F 76 20 108/65 99 08/18/17 15:40 08/18/17 15:40 08/18/17 15:40 08/18/17 15:40 08/18/17 15:40 Intake and Output: 08/18/17 08/18/17 06:59 18:59 Intake Total 980 1000 Balance 980 1000 - Medications Medications: Current Medications Benztropine Mesylate (Cogentin) 1 mg PO Q6 PRN PRN Reason: Allergy symptoms Last Admin: 08/18/17 09:50 Dose: 1 mg Famotidine (Pepcid) 20 mg PO DAILY [facility] Last Admin: 08/18/17 09:49 Dose: 20 mg Fluconazole (Diflucan) 100 mg PO DAILY [facility] Last Admin: 08/18/17 09:49 Dose: 100 mg Haloperidol (Haldol) 5 mg PO Q6 PRN PRN Reason: Psychosis Hydroxyzine HCl (Atarax) 25 mg PO Q6 PRN PRN Reason: Agitation Last Admin: 08/11/17 17:35 Dose: 25 mg Trimethoprim/Sulfamethoxazole (250 mg/ Dextrose) 250 mls @ 250 mls/hr IVPB Q8H [facility] Last Admin: 08/18/17 10:37 Dose: 250 mls/hr Insulin Human Regular (Novolin R) 0 unit SC ACHS [facility] PRN Reason: Protocol Last Admin: 08/18/17 11:37 Dose: 10 unit Levothyroxine Sodium (Synthroid) 125 mcg PO DAILY@0630 [facility] Last Admin: 08/18/17 05:51 Dose: 125 mcg Sertraline HCl (Zoloft) 50 mg PO DAILY [facility] Last Admin: 08/18/17 09:49 Dose: 50 mg Sucralfate (Carafate Oral Susp) 1 gm PO ACBHS [facility] Last Admin: 08/18/17 08:28 Dose: 1 gm Trazodone HCl (Desyrel) 50 mg PO HS [facility] Last Admin: 08/17/17 23:00 Dose: 50 mg - Labs Labs: 08/18/17 07:47 08/18/17 12:26 PT 11.2 SECONDS (9.7-12.2) 08/08/17 10:10 INR 1.0 08/08/17 10:10 APTT 25 SECONDS (21-34) 08/08/17 10:10 - Constitutional Appears: Non-toxic, No Acute Distress - Head Exam Head Exam: ATRAUMATIC, NORMOCEPHALIC - Eye Exam Eye Exam: EOMI, Normal appearance. absent: Scleral icterus Pupil Exam: NORMAL ACCOMODATION, PERRL - ENT Exam ENT Exam: Mucous Membranes Moist - Respiratory Exam Respiratory Exam: Clear to Ausculation Bilateral, NORMAL BREATHING PATTERN. absent: Accessory Muscle Use, Respiratory Distress - Cardiovascular Exam Cardiovascular Exam: REGULAR RHYTHM, +S1, +S2 - GI/Abdominal Exam GI & Abdominal Exam: Soft, Normal Bowel Sounds. absent: Distended, Guarding, Rigid, Tenderness - Extremities Exam Extremities Exam: Normal Capillary Refill, Normal Inspection. absent: Calf Tenderness, Pedal Edema, Tenderness - Neurological Exam Neurological Exam: Alert, Awake. 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 Opportunistic Infection Patient is more alert and awake today. She is only mildly confused. Not oriented to time. ID Dr. Meneses --> help appreciated * Continue Diflucan for 2 weeks after discharge - CT head Negative - MRI - unremarkable - LDH - 478 - f/u CD4 - autocancelled by lab after 3 days, test reordered - f/u Viral Load - autocancelled by lab after 3 days, test reordered Must r/o infectious causes * CMV - IgG > 10; IgM <30; Dennotes previous infection, no acute infection * f/u Crypto - pending as of 08/18/17 * RPR - nonreactive * Toxoplasma - IgG < 7.2; IgM < 8 Bandemia/elevated WBC - Started bactrim (08/16/17) 30%bands on 08/16 --> 10% on 2.) Dysphagia Chest CT * particulate matter, possibly food, identified within the esophageal lumen intermixed with gas. * Incidental 6mm nodule within superior right breast. CXR * no acute cardiopulmonary disease Neck soft tissue CT * Abnormal circumferential thickening noted of the cervical esophagus. findings could be due to reflux esophagitis but esophageal carcinoma is not excluded. GI consulted, Dr. Cervantes --> help appreciated Barium Swallow - small hiatal hernia, otherwise unremarkable * Diflucan 100mg PO QD * Sucralfate 1 gm po 3.) Anemia * monitor 4.) Leukopenia * HIV screen Positive, F/U Confirmatory * hep panel negative 5.) visual hallucination Psychiatry, Dr. Henderson --> help appreciated * haloperidol - held due to somnolence * hydroxyzine * zoloft * trazadone 50mg PO HS 6.) History of hypothyroidism - TSH: 27.8 - T3: 2.19 - T4: 0.89 * Synthroid 125mcg QD 7.) Diabetes HgA1C - 7.1 accuchecks q6h * ISS - high * Lantus 10mg SC QD 8.) Urinary Retention * Bladder scan * if retaining, Insert pink 9.) Hyperkalemia * K = 5.9 * EKG - no changes from previous * 1 amp of D50, 10 units of novolog and calcium gluconate given * repeat K = 4.7 10.) Prophylaxis * Heparin 5000u sc q8h * Pepcid 20 ivp daily Case discussed w/ Dr. Hugo Sahu PGY1 <Rock Arias - Last Filed: 08/19/17 17:48> Objective - Vital Signs/Intake and Output Vital Signs (last 24 hours): Temp Pulse Resp BP Pulse Ox 98.1 F 74 20 116/59 L 98 08/19/17 16:00 08/19/17 16:00 08/19/17 16:00 08/19/17 16:00 08/19/17 16:00 Intake and Output: 08/19/17 08/19/17 06:59 18:59 Intake Total 150 500 Balance 150 500 - Medications Medications: Current Medications Benztropine Mesylate (Cogentin) 1 mg PO Q6 PRN PRN Reason: Allergy symptoms Last Admin: 08/18/17 09:50 Dose: 1 mg Famotidine (Pepcid) 20 mg PO DAILY [facility] Last Admin: 08/19/17 09:48 Dose: 20 mg Fluconazole (Diflucan) 100 mg PO DAILY [facility] Last Admin: 08/19/17 09:48 Dose: 100 mg Haloperidol (Haldol) 5 mg PO Q6 PRN PRN Reason: Psychosis Hydroxyzine HCl (Atarax) 25 mg PO Q6 PRN PRN Reason: Agitation Last Admin: 08/11/17 17:35 Dose: 25 mg Trimethoprim/Sulfamethoxazole (250 mg/ Dextrose) 250 mls @ 250 mls/hr IVPB Q8H [facility] Last Admin: 08/19/17 09:49 Dose: 250 mls/hr Sodium Chloride (Sodium Chloride 0.45%) 1,000 mls @ 150 mls/hr IV .Q6H40M [facility] Last Admin: 08/19/17 14:41 Dose: 150 mls/hr Insulin Aspart (Novolog) 0 unit SC [facility] PRN Reason: Protocol Last Admin: 08/19/17 17:05 Dose: Not Given Insulin Aspart (Novolog) 12 unit SC AC [facility] Insulin Glargine (Lantus) 24 unit SC [facility] Levothyroxine Sodium (Synthroid) 125 mcg PO DAILY@0630 [facility] Last Admin: 08/19/17 06:28 Dose: 125 mcg Ondansetron HCl (Zofran Inj) 4 mg IVP Q6H PRN PRN Reason: Nausea/Vomiting Last Admin: 08/19/17 08:35 Dose: 4 mg Sertraline HCl (Zoloft) 50 mg PO DAILY [facility] Last Admin: 08/19/17 09:48 Dose: 50 mg Sucralfate (Carafate Oral Susp) 1 gm PO ACS [facility] Last Admin: 08/19/17 08:17 Dose: 1 gm Trazodone HCl (Desyrel) 50 mg PO HS [facility] Last Admin: 08/18/17 21:31 Dose: 50 mg - Labs Labs: 08/19/17 08:25 08/19/17 11:27 PT 11.2 SECONDS (9.7-12.2) 08/08/17 10:10 INR 1.0 08/08/17 10:10 APTT 25 SECONDS (21-34) 08/08/17 10:10 Attending/Attestation - Attestation I have personally seen and examined this patient.: Yes I have fully participated in the care of the patient.: Yes I have reviewed all pertinent clinical information, including history, physical exam and plan: Yes Notes (Text): 08/19/17 17:48 Patient was seen and examined at bedside with the resident Patient stated that she is feeling better. Mental status is improved. Electrolyte imbalance noted. We will treat for hyperkalemia and check levels again I discussed the plan of care with the resident and agree with the history and physical and assessment/plan documented.
[2017-08-18] MEDS ORDERED: POLYETHYLENE GLYCOL 3350 17 GM/Dose PACKET PO ONE (17:42)
--- NOTE | 2017-08-19 00:17 | PN ---
DATE: SUBJECTIVE: The patient, Adriel, has been feeling better. PHYSICAL EXAMINATION: VITAL SIGNS: T-max is 98, pulse 76, blood pressure 108/65, respirations are 20. She has been eating better. Her white count, however, remains at 13.1. LUNGS: Clear. HEART: S1 and S2 regular. ABDOMEN: Soft, nontender. No guarding, no rigidity present. EXTREMITIES: Have no edema. She does appear pale. LABORATORY DATA: White count is 13.1, hemoglobin 8.3, hematocrit 25.1. She was on Diflucan. Her medications need to be seen as creatinine is reported 1.7 was the same. Her sugar has been high and they are trying to monitor that. Creatinine remains 1.7 and she has been getting the antibiotics. She has been 10 days on the Diflucan, hence I think it could be discontinued and serology was done, which shows she is CMV positive, but it is old. Hepatitis is negative, HIV is positive, and her toxoplasma is negative, and TB test was indeterminate and so waiting for the CD4 count, and she will be completing of 10 days of Diflucan. I think if she is stable, we can discontinue that and she needs HIV treatment, but she needs to have a plan how she will get them and get HIV medications, which is very important rather than starting. She should be connected to HIV clinic. Jemal Meneses MD
[2017-08-19] MEDS: SULFAMETHOXAZOLE IVPB SCH ×3 (02:05→18:17)
[2017-08-19] MEDS: TRIMETHOPRIM IVPB SCH ×3 (02:05→18:17)
[2017-08-19] MEDS: WATER IVPB SCH ×3 (02:05→18:17)
[2017-08-19] MEDS: DEXTROSE 5% IVPB SCH ×3 (02:05→18:17)
--- NOTE | 2017-08-19 04:15 | CON ---
ENDOCRINOLOGY CONSULTATION LOCATION: Room #359. HISTORY OF PRESENT ILLNESS: This is a 57-year-old female very well known to me with type 1 insulin dependent diabetes presenting here with dysphagia and altered mental status and is being referred now for diabetic evaluation because of extreme subglycemic fluctuations as noted thereof. Review of her diabetic flow sheet revealed glucose ranging from extreme hypoglycemia to marked hyperglycemic accelerations of glucose levels over 500 mg/dL. Since admission, she has only been getting a sliding scale coverage as given by the medical staff. PAST MEDICAL HISTORY: As mentioned above, history of type 1 insulin dependent diabetes, and because of the recent acute renal failure, she was switched over from high-dose basal and bolus insulin regimen to a much lower combination of a lower dosing of a combination of Lantus given as 12 units at bedtime and NovoLog given as 4 units t.i.d. before meals as ordered, history of hypertensive cardiovascular disease and dyslipidemia; history of hypothyroidism, currently on levothyroxine given as 125 mcg daily for 5 days; history of recent gastritis and esophagitis as noted; also history of sudden onset of acute renal failure and actually received hemodialysis at the [facility] for over a month as noted and had just had her Permacath removed a week ago and history of recent HIV positivity as noted. FAMILY HISTORY: Positive for diabetes and hypertension. SOCIAL HISTORY: The patient is , has a very supportive . No known substance use. She worked at the preschool facility for many years and was able to file for medical disability because of the above-mentioned medical complications. REVIEW OF SYSTEMS: As mentioned above, admits to generalized body weakness with easy fatigability and tiredness and suboptimal energy level. Also admits to episodic dizziness and lightheadedness, worse on the day of admission. No chest pains or palpitations, but admits to episodic odynophagia and dysphagia with intermittent vomiting episodes. Also admits to vague upper abdominal pains. Her oral intake has been variable and suboptimal at this time with progressive weight loss of about 20 pounds or so as noted. ALLERGIES: PENICILLIN WITH SKIN RASH. PHYSICAL EXAMINATION: GENERAL: This is an female, in no apparent distress. VITAL SIGNS: Blood pressure of 140/80, pulse of 70 beats per minute and regular, temperature 98, respirations 20, height is 4 feet 10 inches and weight is 110 pounds. HEENT: Head is normocephalic. Eyes; anicteric with pale conjunctivae. Funduscopy is not possible at this time. Ears, nose and throat otherwise normal. NECK: Supple. Thyroid gland is normal in size. No carotid bruits or cervical adenopathy. CARDIOPULMONARY: Some adynamic precordium. S1 and S2 is rapid and regular. LUNGS: Clear to auscultation. ABDOMEN: Flat and soft with positive bowel sounds. EXTREMITIES: No peripheral edema. Pulses are +2 bilaterally. LABORATORY DATA: Chemistry showed a BUN of 17, sodium 131, potassium 4.8, chloride 93, CO2 is 19, glucose is 313 and creatinine 1.7. Her fasting glucose this morning was 561 as noted and the last glucose tonight is 77. ASSESSMENT: This is a 57-year-old female with uncontrolled and decompensated type 1 insulin dependent diabetes with extremes of glycemic fluctuations related to a subtherapeutic insulin regimen. The patient has only been getting a high-dose coverage scale with no fixed dosing regimen as to really indicated at this time especially being a type 1 diabetic. The extremes of glycemic fluctuations especially hypoglycemia has been related bolus doses of stat insulin being given by the medical staff as noted. The hyperglycemic accelerations noted in the mornings is related to having not been given any long-acting insulin overnight, which is clearly indicated because she is a type 1 diabetic with no underlying endogenous insulin secretion. She also has diabetic microvascular complications of polyneuropathy and recent nephropathy with acute renal failure which has improved remarkably at this time as noted. PLAN: Plan of management was discussed with the nursing staff tonight. We will start her right away on a more physiologic basal and bolus insulin drug combination to optimize metabolic control and also to delay the microvascular onslaught of nephropathy if hyperglycemic acceleration persists as noted. We will start her on a lower dose of basal insulin with Lantus to be given as 12 units subQ at bedtime daily as ordered and we will titrate incrementally to optimize metabolic control. We will also add NovoLog given as 6 units subQ t.i.d. before meals to start tomorrow morning as ordered. We will modify the coverage scale to a very, very low dose coverage of NovoLog for glucose only above 300 and detailed orders have been given to avoid hypoglycemia. Hemoglobin A1c will be done to confirm her prior glycemic control and baseline thyroid function studies will be ordered to adjust her levothyroxine dose accordingly. We will follow and advise accordingly. Nesha Donaldson MD
[2017-08-19] MEDS: Levothyroxine 125 MCG TAB PO SCH (06:28)
[2017-08-19] MEDS ORDERED: (Novolog) Insulin Aspart, Recombinant 100 u/ml 10 ml vial SC SCH ×2 (07:30→11:30)
[2017-08-19] MEDS: Sucralfate 1 gm/10 ml Oral Susp UD PO SCH ×2 (08:17→21:58)
[2017-08-19] MEDS: (Novolog) Insulin Aspart, Recombinant 100 u/ml 10 ml vial SC SCH ×5 (08:19→22:07)
[2017-08-19 08:34] LABS: BASO % 0.3 % (0.0-2.0); EOS % 0.6 % (0.0-4.0); HEMATOCRIT 26.2 % (34.0-47.0); LYMPH # 0.8 K/uL (1.0-4.3); LYMPH % 12.3 % (20.0-40.0); MEAN CELL VOLUME 91.1 fL (81.0-99.0); MEAN CORPUSCULAR HEMOGLOBIN 30.1 pg (27.0-31.0); MONO # 0.4 K/uL (0.0-0.8); MONO % 6.4 % (0.0-10.0); NRBC % 0.2 % (0.0-2.0); RED CELL DISTRIBUTION WIDTH 14.5 % (11.5-14.5); WHITE BLOOD COUNT 6.8 K/uL (4.8-10.8)
[2017-08-19 08:45] LABS: POTASSIUM 5.9 mmol/L (3.6-5.2)
[2017-08-19 08:47] LABS: ALB/GLOB RATIO 0.9 (1.0-2.1); BILIRUBIN,TOTAL 0.4 mg/dL (0.2-1.3); TOTAL PROTEIN 6.8 g/dL (6.3-8.3)
[2017-08-19 08:48] LABS: CALCIUM 9.2 mg/dl (8.6-10.4)
[2017-08-19 09:06] LABS: T4 11.1 ug/dL (5.5-11.0)
[2017-08-19 09:20] LABS: THYROID STIMULATING HORMONE 5.86 mIU/L (0.46-4.68)
[2017-08-19] MEDS ORDERED: Sod Polystyrene Sulf 15 gm/60 ml Susp PO ONE (10:45)
[2017-08-19] MEDS ORDERED: Dextrose 50% SYRINGE Inj (50 ml) IV ONE (10:45)
[2017-08-19] MEDS ORDERED: (Novolin R) Insulin Human Regular 100 units/ml vial IV ONE (10:45)
[2017-08-19 11:51] LABS: CALCIUM 9.6 mg/dl (8.6-10.4); POTASSIUM 4.4 mmol/L (3.6-5.2)
[2017-08-19] MEDS: Sodium Chloride 0.45% 1,000 ML IV SCH ×2 (14:41→22:08)
--- NOTE | 2017-08-19 15:06 | PN ---
DATE: ENDOCRINOLOGY FOLLOWUP NOTE LOCATION: Room 359. SUBJECTIVE: This is a 57-year-old female with recent uncontrolled type 1 insulin dependent diabetes mellitus with extremes subglycemic fluctuation now being followed closely for metabolic management. The glucose levels today have ranged from 413 to 561 mg/dL, as there was no basal insulin given overnight as noted. LABORATORY DATA: The latest chemistry showed a BUN of 20, sodium 123, potassium 4.4, chloride 88, CO2 15, glucose 561, and creatinine 1.9. PLAN: So at this time, we will continue the same basal and bolus insulin regimen, which was just modified and increase the Lantus to 20 units subcutaneous at bedtime to start tonight. We will also increase the Novolog to 10 units subcutaneous t.i.d. before meals to start at lunch time today as ordered. We will titrate incrementally as indicated to optimize metabolic control. We will also restart IV hydration, as the patient of prerenal azotemia and previous hyponatremia with increasing metabolic acidosis, as she is type 1 diabetic. We will follow and advise accordingly. Nesha Donaldson MD
[2017-08-19 16:20] LABS: CRYPTOCOCCUS AB <1:2
--- NOTE | 2017-08-19 18:12 | CP.PCM.PN ---
<Rupesh Sahu - Last Filed: 08/19/17 18:08> Subjective - Date & Time of Evaluation Date of Evaluation: 08/19/17 Time of Evaluation: 18:16 - Subjective Subjective: PGY1 Medicine note for Dr. Arias Patient seen and examined at bedside this morning. Patient is states she is feeling much better. She says her spirits are up today because everyone keeps telling her that she appears to be improving. Patient's states that she has noticed some shaking in her hands this morning. She also states that she is nauseous and that both of these things happen at when her BS is elevated. BS this morning was 721. Denies f/c, d/c, sob, cp, headache, numbness or tingling. Objective - Vital Signs/Intake and Output Vital Signs (last 24 hours): Temp Pulse Resp BP Pulse Ox 98.1 F 74 20 116/59 L 98 08/19/17 16:00 08/19/17 16:00 08/19/17 16:00 08/19/17 16:00 08/19/17 16:00 Intake and Output: 08/19/17 08/19/17 06:59 18:59 Intake Total 150 500 Balance 150 500 - Medications Medications: Current Medications Benztropine Mesylate (Cogentin) 1 mg PO Q6 PRN PRN Reason: Allergy symptoms Last Admin: 08/18/17 09:50 Dose: 1 mg Famotidine (Pepcid) 20 mg PO DAILY [facility] Last Admin: 08/19/17 09:48 Dose: 20 mg Fluconazole (Diflucan) 100 mg PO DAILY [facility] Last Admin: 08/19/17 09:48 Dose: 100 mg Haloperidol (Haldol) 5 mg PO Q6 PRN PRN Reason: Psychosis Hydroxyzine HCl (Atarax) 25 mg PO Q6 PRN PRN Reason: Agitation Last Admin: 08/11/17 17:35 Dose: 25 mg Trimethoprim/Sulfamethoxazole (250 mg/ Dextrose) 250 mls @ 250 mls/hr IVPB Q8H [facility] Last Admin: 08/19/17 09:49 Dose: 250 mls/hr Sodium Chloride (Sodium Chloride 0.45%) 1,000 mls @ 150 mls/hr IV .Q6H40M [facility] Last Admin: 08/19/17 14:41 Dose: 150 mls/hr Insulin Aspart (Novolog) 0 unit SC [facility] PRN Reason: Protocol Last Admin: 08/19/17 17:05 Dose: Not Given Insulin Aspart (Novolog) 12 unit SC AC [facility] Insulin Glargine (Lantus) 24 unit SC [facility] Levothyroxine Sodium (Synthroid) 125 mcg PO DAILY@0630 [facility] Last Admin: 08/19/17 06:28 Dose: 125 mcg Ondansetron HCl (Zofran Inj) 4 mg IVP Q6H PRN PRN Reason: Nausea/Vomiting Last Admin: 08/19/17 08:35 Dose: 4 mg Sertraline HCl (Zoloft) 50 mg PO DAILY [facility] Last Admin: 08/19/17 09:48 Dose: 50 mg Sucralfate (Carafate Oral Susp) 1 gm PO ACS [facility] Last Admin: 08/19/17 08:17 Dose: 1 gm Trazodone HCl (Desyrel) 50 mg PO [facility] Last Admin: 08/18/17 21:31 Dose: 50 mg - Labs Labs: 08/19/17 08:25 08/19/17 11:27 PT 11.2 SECONDS (9.7-12.2) 08/08/17 10:10 INR 1.0 08/08/17 10:10 APTT 25 SECONDS (21-34) 08/08/17 10:10 - Constitutional Appears: Non-toxic, No Acute Distress - Head Exam Head Exam: ATRAUMATIC, NORMOCEPHALIC - Eye Exam Eye Exam: EOMI, Normal appearance - ENT Exam ENT Exam: Mucous Membranes Moist - Neck Exam Neck Exam: absent: Lymphadenopathy - Respiratory Exam Respiratory Exam: Clear to Ausculation Bilateral, NORMAL BREATHING PATTERN. absent: Accessory Muscle Use, Rales, Wheezes, Respiratory Distress - Cardiovascular Exam Cardiovascular Exam: REGULAR RHYTHM, +S1, +S2 - GI/Abdominal Exam GI & Abdominal Exam: Soft, Normal Bowel Sounds. absent: Distended, Guarding, Rigid, Tenderness - Extremities Exam Extremities Exam: Normal Capillary Refill, Normal Inspection. absent: Calf Tenderness, Pedal Edema, Tenderness - Back Exam Back Exam: NORMAL INSPECTION. absent: paraspinal tenderness, tenderness, vertebral tenderness - Neurological Exam Neurological Exam: Alert, Awake. absent: Oriented x3 (self and year, but not place. Believes she is at a daycare center. ) Additional comments: Patient reports a tremor. It was seen this morning, but was not seen when patient was re-evaluated during the afternoon. 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 Opportunistic Infection Patient is more alert and awake today. She is only mildly confused. Not oriented to time. ID Dr. Meneses --> help appreciated * Continue Diflucan for 2 weeks after discharge - CT head Negative - MRI - unremarkable - LDH - 478 - f/u CD4 - autocancelled by lab after 3 days, test reordered - f/u Viral Load - autocancelled by lab after 3 days, test reordered Must r/o infectious causes * CMV - IgG > 10; IgM <30; Dennotes previous infection, no acute infection * f/u Crypto - pending as of 08/18/17 * RPR - nonreactive * Toxoplasma - IgG < 7.2; IgM < 8 Bandemia/elevated WBC - Started bactrim (08/16/17) 30%bands on 08/16 --> 10% on 2.) Dysphagia Chest CT * particulate matter, possibly food, identified within the esophageal lumen intermixed with gas. * Incidental 6mm nodule within superior right breast. CXR * no acute cardiopulmonary disease Neck soft tissue CT * Abnormal circumferential thickening noted of the cervical esophagus. findings could be due to reflux esophagitis but esophageal carcinoma is not excluded. GI consulted, Dr. Cervantes --> help appreciated Barium Swallow - small hiatal hernia, otherwise unremarkable * Diflucan 100mg PO QD * Sucralfate 1 gm po 3.) Anemia * monitor 4.) Leukopenia * HIV screen Positive, F/U Confirmatory * hep panel negative 5.) visual hallucination Psychiatry, Dr. Henderson --> help appreciated * haloperidol - held due to somnolence * hydroxyzine * zoloft * trazadone 50mg PO HS 6.) History of hypothyroidism - TSH: 27.8 - T3: 2.19 - T4: 0.89 * Synthroid 125mcg QD 7.) Diabetes Endo consulted, Dr. Nesha Donaldson * Started pt on Novolog 12u SC AC and Lantus 24u SC HS BS of 721 this am HgA1C - 7.1 accuchecks q6h * ISS - high * Lantus 10mg SC QD 8.) Urinary Retention * Bladder scan * if retaining, Insert pink 9.) Hyperkalemia, exact same episode as yesterday 08/18/17 * K = 5.9 * EKG - no changes from previous * 1 amp of D50, 10 units of novolog and calcium gluconate given 10.) Prophylaxis * Heparin 5000u sc q8h * Pepcid 20 ivp daily Case discussed w/ Dr. Hugo Sahu PGY1 <Rock Arias - Last Filed: 09/01/17 21:56> Objective - Vital Signs/Intake and Output Vital Signs (last 24 hours): Temp Pulse Resp BP Pulse Ox 98.2 F 118 H 20 164/94 H 99 09/01/17 16:00 09/01/17 18:26 09/01/17 18:26 09/01/17 18:26 09/01/17 15:00 Intake and Output: 09/01/17 09/02/17 18:59 06:59 Intake Total 870 Output Total 1500 Balance -630 - Medications Medications: Current Medications Aspirin (Ecotrin) 81 mg PO DAILY [facility] Last Admin: 09/01/17 09:00 Dose: 81 mg Dexamethasone (Decadron Inj) 4 mg IVP Q6H [facility] Last Admin: 09/01/17 17:36 Dose: 4 mg Efavirenz/Emtricitabine/Tenofovir (Atripla 600 Mg-200 Mg-300 Mg) 1 tab PO DAILY [facility] Last Admin: 09/01/17 09:00 Dose: 1 tab Famotidine (Pepcid) 20 mg PO DAILY [facility] Last Admin: 09/01/17 09:00 Dose: 20 mg Hydralazine HCl (Apresoline) 10 mg IVP Q6H PRN PRN Reason: Systolic Blood Pressure Last Admin: 09/01/17 17:48 Dose: 10 mg Fluconazole (Diflucan Iv 100 Mg/50 Ml Ns) 50 mls @ 100 mls/hr IVPB DAILY [facility] Last Admin: 09/01/17 10:29 Dose: 100 mls/hr Valproate Sodium 250 mg/ (Sodium Chloride) 102.5 mls @ 100 mls/hr IVPB DAILY [facility] Last Admin: 09/01/17 09:01 Dose: 100 mls/hr Dextrose/Sodium Chloride (Dextrose 5%/0.45% Ns 1000 Ml) 1,000 mls @ 100 mls/hr IV .Q10H [facility] Last Admin: 09/01/17 17:55 Dose: 100 mls/hr Insulin Aspart (Novolog) 0 unit SC [facility] PRN Reason: Protocol Last Admin: 09/01/17 21:52 Dose: Not Given Insulin Detemir (Levemir) 12 unit SC Q12H [facility] Last Admin: 09/01/17 21:54 Dose: 12 unit Levothyroxine Sodium (Synthroid) 125 mcg PO DAILY@0630 [facility] Last Admin: 09/01/17 05:46 Dose: 125 mcg Ondansetron HCl (Zofran Inj) 4 mg IVP Q6H PRN PRN Reason: Nausea/Vomiting Last Admin: 08/27/17 14:44 Dose: 4 mg Sucralfate (Carafate Oral Susp) 1 gm PO [facility] Last Admin: 09/01/17 21:51 Dose: 1 gm Trimethoprim/Sulfamethoxazole (Bactrim Ds Tab) 1 tab PO MWF [facility] Last Admin: 09/01/17 08:46 Dose: 1 tab - Labs Labs: 09/01/17 08:10 09/01/17 08:10 PT 11.2 SECONDS (9.7-12.2) 08/08/17 10:10 INR 1.0 08/08/17 10:10 APTT 25 SECONDS (21-34) 08/08/17 10:10 Attending/Attestation - Attestation I have personally seen and examined this patient.: Yes I have fully participated in the care of the patient.: Yes I have reviewed all pertinent clinical information, including history, physical exam and plan: Yes Notes (Text): 09/01/17 21:55 patient was seen and examined at bedside with the resident I discussed the plan of care with the resident I agree with the assessment and plan documented
[2017-08-19] MEDS: (Lantus) Insulin Glargine, Recombinant SC SCH (22:00)
[2017-08-19] MEDS ORDERED: (Lantus) Insulin Glargine, Recombinant SC SCH ×2 (22:00)
[2017-08-20] MEDS: Sodium Chloride 0.45% 1,000 ML IV SCH ×4 (00:02→11:25)
[2017-08-20] MEDS: WATER IVPB SCH ×3 (02:00→18:31)
[2017-08-20] MEDS: TRIMETHOPRIM IVPB SCH ×3 (02:00→18:31)
[2017-08-20] MEDS: SULFAMETHOXAZOLE IVPB SCH ×3 (02:00→18:31)
[2017-08-20] MEDS: DEXTROSE 5% IVPB SCH ×3 (02:00→18:31)
[2017-08-20] MEDS: Levothyroxine 125 MCG TAB PO SCH (06:08)
[2017-08-20 07:49] LABS: BASO % 0.3 % (0.0-2.0); EOS % 0.1 % (0.0-4.0); LYMPH # 0.8 K/uL (1.0-4.3); MEAN CORPUSCULAR HGB CONC 34.4 g/dL (33.0-37.0); MEAN PLATELET VOLUME 8.8 fL (7.2-11.7); MONO # 0.5 K/uL (0.0-0.8); MONO % 8.6 % (0.0-10.0); RED CELL DISTRIBUTION WIDTH 14.2 % (11.5-14.5); WHITE BLOOD COUNT 5.8 K/uL (4.8-10.8)
[2017-08-20 08:09] LABS: MEAN CELL VOLUME 87.4 fL (81.0-99.0)
[2017-08-20 08:26] LABS: POTASSIUM 4.7 mmol/L (3.6-5.2)
[2017-08-20 08:28] LABS: BILIRUBIN,TOTAL 0.4 mg/dL (0.2-1.3)
[2017-08-20 08:29] LABS: ALB/GLOB RATIO 0.9 (1.0-2.1); CALCIUM 8.4 mg/dl (8.6-10.4); TOTAL PROTEIN 6.3 g/dL (6.3-8.3)
[2017-08-20] MEDS: (Novolog) Insulin Aspart, Recombinant 100 u/ml 10 ml vial SC SCH ×7 (08:30→21:38)
[2017-08-20] MEDS: Sucralfate 1 gm/10 ml Oral Susp UD PO SCH ×2 (08:30→21:39)
--- NOTE | 2017-08-20 13:45 | CP.PCM.PN ---
<Rupesh Sahu - Last Filed: 08/20/17 16:20> Subjective - Date & Time of Evaluation Date of Evaluation: 08/20/17 Time of Evaluation: 07:30 - Subjective Subjective: PGY1 Medicine Note for Dr. Arias Patient seen and examined at bedside this morning. Patient states she is doing well except she notices that she is shaking a little bit more than usual. She is oriented to self and time but does not know that she is in the hospital at this time. She states that she has no complaints at this time. Denies f/c, n/v , d/c, sob, cp, headache, vision changes. Objective - Vital Signs/Intake and Output Vital Signs (last 24 hours): Temp Pulse Resp BP Pulse Ox 98.4 F 61 20 118/64 97 08/20/17 00:00 08/20/17 00:00 08/20/17 00:00 08/20/17 00:00 08/20/17 00:00 Intake and Output: 08/20/17 08/20/17 06:59 18:59 Intake Total 2550 Balance 2550 - Medications Medications: Current Medications Benztropine Mesylate (Cogentin) 1 mg PO Q6 PRN PRN Reason: Allergy symptoms Last Admin: 08/18/17 09:50 Dose: 1 mg Famotidine (Pepcid) 20 mg PO DAILY [facility] Last Admin: 08/20/17 11:00 Dose: 20 mg Fluconazole (Diflucan) 100 mg PO DAILY [facility] Last Admin: 08/20/17 11:00 Dose: Not Given Haloperidol (Haldol) 5 mg PO Q6 PRN PRN Reason: Psychosis Hydroxyzine HCl (Atarax) 25 mg PO Q6 PRN PRN Reason: Agitation Last Admin: 08/11/17 17:35 Dose: 25 mg Trimethoprim/Sulfamethoxazole (250 mg/ Dextrose) 250 mls @ 250 mls/hr IVPB Q8H [facility] Last Admin: 08/20/17 11:00 Dose: 250 mls/hr Sodium Chloride (Sodium Chloride 0.45%) 1,000 mls @ 150 mls/hr IV .Q6H40M [facility] Last Admin: 08/20/17 11:25 Dose: Not Given Insulin Aspart (Novolog) 0 unit SC [facility] PRN Reason: Protocol Last Admin: 08/20/17 12:14 Dose: Not Given Insulin Aspart (Novolog) 12 unit SC AC [facility] Last Admin: 08/20/17 12:28 Dose: Not Given Insulin Glargine (Lantus) 24 unit SC [facility] Last Admin: 08/19/17 22:00 Dose: 24 units Levothyroxine Sodium (Synthroid) 125 mcg PO DAILY@0630 [facility] Last Admin: 08/20/17 06:08 Dose: 125 mcg Ondansetron HCl (Zofran Inj) 4 mg IVP Q6H PRN PRN Reason: Nausea/Vomiting Last Admin: 08/19/17 08:35 Dose: 4 mg Sucralfate (Carafate Oral Susp) 1 gm PO ACS [facility] Last Admin: 08/20/17 08:30 Dose: 1 gm - Labs Labs: 08/20/17 07:42 08/20/17 07:42 PT 11.2 SECONDS (9.7-12.2) 08/08/17 10:10 INR 1.0 08/08/17 10:10 APTT 25 SECONDS (21-34) 08/08/17 10:10 - Constitutional Appears: Non-toxic, No Acute Distress - Head Exam Head Exam: ATRAUMATIC, NORMOCEPHALIC - Eye Exam Eye Exam: EOMI, Normal appearance - ENT Exam ENT Exam: Mucous Membranes Moist - Respiratory Exam Respiratory Exam: Clear to Ausculation Bilateral, NORMAL BREATHING PATTERN. absent: Accessory Muscle Use, Rales, Rhonchi, Wheezes, Respiratory Distress - Cardiovascular Exam Cardiovascular Exam: REGULAR RHYTHM, +S1, +S2 - GI/Abdominal Exam GI & Abdominal Exam: Soft, Normal Bowel Sounds. absent: Distended, Firm, Guarding, Rigid, Tenderness - Extremities Exam Extremities Exam: Normal Inspection. absent: Calf Tenderness, Pedal Edema - Neurological Exam Neurological Exam: Alert, Awake. absent: Oriented x3 (oriented x2 (self and time), does not know where she is at.) Additional comments: Patient has tremors at rest in hands b/l today. They do not improve with movement. 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 Opportunistic Infection Patient is more alert and awake today. She is only mildly confused. Not oriented to time. ID Dr. Meneses --> help appreciated * Continue Diflucan for 2 weeks after discharge - CT head Negative - MRI - unremarkable - LDH - 478 - f/u CD4 - autocancelled by lab after 3 days, test reordered - f/u Viral Load - autocancelled by lab after 3 days, test reordered Must r/o infectious causes * CMV - IgG > 10; IgM <30; Dennotes previous infection, no acute infection * f/u Crypto - pending as of 08/18/17 * RPR - nonreactive * Toxoplasma - IgG < 7.2; IgM < 8 Bandemia/elevated WBC - Started bactrim (08/16/17) 30%bands on 08/16 --> 10% on 2.) New!!! Hyponatremia * Down trending Na - 122 (today) * STOPPED due to potential s/e of hyponatremia * Zoloft, Trazodone and IV fluids. * Nephro Consult, Dr. Wong - help appreciated, f/u recs * f/u urine sodium, urine osmol, serum osmol 3.) Dysphagia Chest CT * particulate matter, possibly food, identified within the esophageal lumen intermixed with gas. * Incidental 6mm nodule within superior right breast. CXR * no acute cardiopulmonary disease Neck soft tissue CT * Abnormal circumferential thickening noted of the cervical esophagus. findings could be due to reflux esophagitis but esophageal carcinoma is not excluded. GI consulted, Dr. Cervantes --> help appreciated Barium Swallow - small hiatal hernia, otherwise unremarkable * Diflucan 100mg PO QD * Sucralfate 1 gm po 4.) Anemia * monitor 5.) Leukopenia * HIV screen Positive, F/U Confirmatory * hep panel negative 6.) visual hallucination Psychiatry, Dr. Henderson --> help appreciated * haloperidol - held due to somnolence * hydroxyzine * zoloft - stopped see above * trazadone 50mg PO HS - stopped see above 7.) History of hypothyroidism - TSH: 27.8 - T3: 2.19 - T4: 0.89 * Synthroid 125mcg QD 8.) Diabetes Endo consulted, Dr. Nesha Donaldson * Started pt on Novolog 12u SC AC and Lantus 24u SC HS BS of 353 this am HgA1C - 7.1 accuchecks q6h * ISS - high Continue to monitor 9.) Urinary Retention * Bladder scan * if retaining, Insert pink 10.) Hyperkalemia, resolved * K=4.7 today 11.) Prophylactic Care * Heparin 5000u sc q8h * Pepcid 20 ivp daily Case discussed w/ Dr. Hugo Sahu PGY1 <Rock Arias - Last Filed: 09/01/17 20:53> Objective - Vital Signs/Intake and Output Vital Signs (last 24 hours): Temp Pulse Resp BP Pulse Ox 98.2 F 118 H 20 164/94 H 99 09/01/17 16:00 09/01/17 18:26 09/01/17 18:26 09/01/17 18:26 09/01/17 15:00 Intake and Output: 09/01/17 09/02/17 18:59 06:59 Intake Total 870 Output Total 1500 Balance -630 - Medications Medications: Current Medications Aspirin (Ecotrin) 81 mg PO DAILY [facility] Last Admin: 09/01/17 09:00 Dose: 81 mg Dexamethasone (Decadron Inj) 4 mg IVP Q6H [facility] Last Admin: 09/01/17 17:36 Dose: 4 mg Efavirenz/Emtricitabine/Tenofovir (Atripla 600 Mg-200 Mg-300 Mg) 1 tab PO DAILY [facility] Last Admin: 09/01/17 09:00 Dose: 1 tab Famotidine (Pepcid) 20 mg PO DAILY [facility] Last Admin: 09/01/17 09:00 Dose: 20 mg Hydralazine HCl (Apresoline) 10 mg IVP Q6H PRN PRN Reason: Systolic Blood Pressure Last Admin: 09/01/17 17:48 Dose: 10 mg Fluconazole (Diflucan Iv 100 Mg/50 Ml Ns) 50 mls @ 100 mls/hr IVPB DAILY [facility] Last Admin: 09/01/17 10:29 Dose: 100 mls/hr Valproate Sodium 250 mg/ (Sodium Chloride) 102.5 mls @ 100 mls/hr IVPB DAILY [facility] Last Admin: 09/01/17 09:01 Dose: 100 mls/hr Dextrose/Sodium Chloride (Dextrose 5%/0.45% Ns 1000 Ml) 1,000 mls @ 100 mls/hr IV .Q10H [facility] Last Admin: 09/01/17 17:55 Dose: 100 mls/hr Insulin Aspart (Novolog) 0 unit SC [facility] PRN Reason: Protocol Last Admin: 09/01/17 17:36 Dose: Not Given Insulin Detemir (Levemir) 12 unit SC Q12H [facility] Levothyroxine Sodium (Synthroid) 125 mcg PO DAILY@0630 [facility] Last Admin: 09/01/17 05:46 Dose: 125 mcg Ondansetron HCl (Zofran Inj) 4 mg IVP Q6H PRN PRN Reason: Nausea/Vomiting Last Admin: 08/27/17 14:44 Dose: 4 mg Sucralfate (Carafate Oral Susp) 1 gm PO [facility] Last Admin: 09/01/17 07:47 Dose: 1 gm Trimethoprim/Sulfamethoxazole (Bactrim Ds Tab) 1 tab PO MWF [facility] Last Admin: 09/01/17 08:46 Dose: 1 tab - Labs Labs: 09/01/17 08:10 09/01/17 08:10 PT 11.2 SECONDS (9.7-12.2) 08/08/17 10:10 INR 1.0 08/08/17 10:10 APTT 25 SECONDS (21-34) 08/08/17 10:10 Attending/Attestation - Attestation I have personally seen and examined this patient.: Yes I have fully participated in the care of the patient.: Yes I have reviewed all pertinent clinical information, including history, physical exam and plan: Yes Notes (Text): 09/01/17 20:53 patient was seen and examined at bedside with the resident. This is a late computer entry I discussed the plan of care with the resident and agree with the history and physical and assessment/plan documented here.
--- NOTE | 2017-08-20 17:23 | PN ---
ENDO FOLLOWUP NOTE LOCATION: In room 359. SUBJECTIVE: This is a 57-year-old female with recent uncontrolled type 1 insulin dependent diabetes, now being followed closely for metabolic management. Her glycemic levels are fluctuating, but starting to improve as noted today with glucose levels ranging from 205 to 226 mg/dL. The fasting glucose was still elevated at 353 mg/dL. Her latest chemistries include the BUN of 18, sodium 122, potassium 4.7, chloride 87, CO2 of 23, glucose 298 and creatinine 1.6. So at this time, we will increase her basal insulin with Lantus to be given as 30 subcu at bedtime daily to start tonight. We will also increase the Novolog to 14 units subcu t.i.d. before meals to start at dinner time today as ordered. We will titrate incrementally as indicated to optimize metabolic control. We will also continue the low-dose correction scale using Novolog insulin as given. We will obtain serum chemistry and supplement accordingly as needed. We will also discontinue the IV hydration at this time with improving biochemical indices as noted. We will follow with you. Nesha Donaldson MD
[2017-08-20] MEDS ORDERED: Sodium Chloride 0.9% 1,000 ML IV ONE (20:28)
[2017-08-20] MEDS: (Lantus) Insulin Glargine, Recombinant SC SCH ×2 (21:38→22:59)
--- NOTE | 2017-08-20 22:11 | CON ---
DATE: NEPHROLOGY CONSULTATION HISTORY OF PRESENT ILLNESS: A 57-year-old female with past medical history of hypertension, hypothyroidism,diabetes, GERD, esophagitis, gastritis, and recent LOLIS, initially presented with progressive dysphagia, and was subsequently admitted for further workup. Nephrology service is now being consulted for hyponatremia. The patient diagnosed few months ago with HIV, apparently not yet on ART therapy. Reports 20-pound weight loss over the past several months. The patient had chest CT that showed particulate matter, possibly food within the esophageal lumen, also found to have abnormal circumferential thickening of cervical esophagus. Barium swallow showed small hiatal hernia, otherwise unremarkable. Further GI workup currently being differed for outpatient followup. The patient's dysphagia symptoms have improved; however, she has been noted to have altered mental status at times. The patient had workup done for infectious causes with MRI being unremarkable. The patient found to have bandemia, elevated leukocytosis, and was started on Bactrim on 08/16/2017. The patient was also placed on psychiatric medications in the setting of visual hallucinations; however, medications have been held in the setting of worsening hyponatremia. The patient reports that she has been eating well during this current hospitalization except for today reports vomiting and inability to keep down p.o. intake. Otherwise, denies any diarrhea; the patient reports increased urination over the past few days, also with feeling of incomplete bladder evacuation. Otherwise, denies any urgency or incontinence. PAST MEDICAL HISTORY: As above; acute renal failure, recently requiring hemodialysis of unclear etiology. We will need to obtain records from [facility]. FAMILY HISTORY: denies any medical issues. SOCIAL HISTORY: remote light smoker. REVIEW OF SYSTEMS: CONSTITUTIONAL: Weight loss as mentioned. HEENT: Occasional headaches. Denies any sore throat or upper respiratory symptoms. RESPIRATORY: Denies any difficulty breathing. CARDIOVASCULAR: Denies any chest pain or palpitations. GASTROINTESTINAL: As per HPI. GENITOURINARY: Denies any dysuria, otherwise as per HPI. MUSCULOSKELETAL: Reporting some right-sided back pain attributed to sleeping position. NEUROLOGIC: Reportedly having tremors, unclear if this is self induced. PSYCHIATRIC: Visual hallucinations reported. HEMATOLOGIC: Denies any bruising or bleeding. SKIN: Pruritus involving scalp and face. PHYSICAL EXAMINATION: VITAL SIGNS: This afternoon; blood pressure 144/72, heart rate 83, respirations 20, temperature 98.6, and O2 saturation 97% on room air. LABORATORY DATA: This morning: CBC; WBC 5.8, hemoglobin 7.9, hematocrit 23.0, and platelets 103. Chemistry panel; sodium 122, decreased progressively from 135 on 08/16/2017. Rest of chemistry panel: Sodium 4.7, chloride 85, bicarb 23, BUN 18, creatinine 1.6, increased from 1.1 on 08/16/2017. Glucose 298, calcium 8.4, AST 43, ALT 38, albumin 3.0. Urine sodium 113, osm 502. ASSESSMENT AND PLAN: 1. Hyponatremia, most likely iatrogenic in the setting of Bactrim use, as Bactrim initiation corresponds with start of progressive hyponatremia, Bactrim composed of trimethoprim-sulfamethoxazole, trimethoprim component acts as a potassium-sparing diuretic blocking epithelial sodium channel in the distal collecting duct, therefore, inducing hyponatremia. At this point, the patient may also have an element of hypovolemia despite being normotensive and this may be indicated by increased urine osmolality (i.e., ADH is increased in the setting of hypovolemia). Recommend to discontinue Bactrim and change to another agent. If Bactrim is deemed the only alternative, then we will have to figure out a way to raise serum sodium with Bactrim still being used. We will consider tolvaptan. We will give 1 L normal saline at a rate of 250 mL per hour to correct any possible volume deficit. Rate of correction of serum of sodium should be 6 to 8 mEq per liter over the next 24 hours, as the patient's hyponatremia has been ongoing since over 48 hours and is considered subacute/chronic at this point. 2. Hyperkalemia also secondary to trimethoprim component of Bactrim. The patient given dose of Kayexalate, but discontinuing the medication would be the most effective treatment. 3. Increased serum creatinine. This is likely due to Bactrim interfering with tubular secretion of creatinine and not a true acute kidney injury. We will reassess once Bactrim has been on hold for 24 hours. 4. Anemia. Recommend to check iron studies. Thank you for this very interesting consult. We will be following closely. Gualberto Wong MD [facility] # [id number] AMY
[2017-08-21] MEDS: Levothyroxine 125 MCG TAB PO SCH (06:30)
[2017-08-21] MEDS: Sucralfate 1 gm/10 ml Oral Susp UD PO SCH ×2 (07:35→21:34)
[2017-08-21 07:38] LABS: BASO % 0.3 % (0.0-2.0); EOS % 0.1 % (0.0-4.0); HEMATOCRIT 23.1 % (34.0-47.0); LYMPH # 0.7 K/uL (1.0-4.3); MEAN CORPUSCULAR HGB CONC 34.5 g/dL (33.0-37.0); MEAN PLATELET VOLUME 8.4 fL (7.2-11.7); MONO # 0.5 K/uL (0.0-0.8); MONO % 11.8 % (0.0-10.0); RED CELL DISTRIBUTION WIDTH 14.3 % (11.5-14.5); WHITE BLOOD COUNT 4.1 K/uL (4.8-10.8)
[2017-08-21] MEDS: (Novolog) Insulin Aspart, Recombinant 100 u/ml 10 ml vial SC SCH ×7 (07:40→21:37)
--- NOTE | 2017-08-21 07:49 | CP.PCM.PN ---
<Rupesh Sahu - Last Filed: 08/21/17 17:07> Subjective - Date & Time of Evaluation Date of Evaluation: 08/21/17 Time of Evaluation: 07:49 - Subjective Subjective: PGY1 Medicine Note for Dr. Dom Shah Patient seen and examined this morning at bedside. She is feeling well today but states she feeling shaking today. The nurse is at bedside and reports that the patient only shakes when she is moved, if the patient is left alone in bed, she does not shake. This is believed to be anxiety. The patient agreed with this statement. The patient is AAOx3 today, even though she was slow to remember that the year was 2016. She has no complaints at this time. Denies f/c , n/v, d/c, sob, cp, headaches, numbness or tingling. Objective - Vital Signs/Intake and Output Vital Signs (last 24 hours): Temp Pulse Resp BP Pulse Ox 98.0 F 86 20 142/77 97 08/20/17 23:39 08/20/17 23:39 08/20/17 23:39 08/20/17 23:39 08/20/17 23:39 Intake and Output: 08/21/17 08/21/17 06:59 18:59 Intake Total 100 Balance 100 - Medications Medications: Current Medications Benztropine Mesylate (Cogentin) 1 mg PO Q6 PRN PRN Reason: Allergy symptoms Last Admin: 08/21/17 04:14 Dose: 1 mg Famotidine (Pepcid) 20 mg PO DAILY JESSICA Last Admin: 08/20/17 11:00 Dose: 20 mg Haloperidol (Haldol) 5 mg PO Q6 PRN PRN Reason: Psychosis Hydroxyzine HCl (Atarax) 25 mg PO Q6 PRN PRN Reason: Agitation Last Admin: 08/11/17 17:35 Dose: 25 mg Trimethoprim/Sulfamethoxazole (250 mg/ Dextrose) 250 mls @ 250 mls/hr IVPB Q8H JESSICA Last Admin: 08/20/17 18:31 Dose: 250 mls/hr Insulin Aspart (Novolog) 0 unit SC ACHS JESSICA PRN Reason: Protocol Last Admin: 08/20/17 21:38 Dose: Not Given Insulin Aspart (Novolog) 6 unit SC AC JESSICA Insulin Glargine (Lantus) 12 unit SC HS JESSICA Last Admin: 08/20/17 22:59 Dose: 12 units Levothyroxine Sodium (Synthroid) 125 mcg PO DAILY@0630 [facility] Last Admin: 08/21/17 06:30 Dose: 125 mcg Ondansetron HCl (Zofran Inj) 4 mg IVP Q6H PRN PRN Reason: Nausea/Vomiting Last Admin: 08/19/17 08:35 Dose: 4 mg Sucralfate (Carafate Oral Susp) 1 gm PO ACBHS [facility] Last Admin: 08/20/17 21:39 Dose: 1 gm - Labs Labs: 08/21/17 07:24 08/20/17 07:42 PT 11.2 SECONDS (9.7-12.2) 08/08/17 10:10 INR 1.0 08/08/17 10:10 APTT 25 SECONDS (21-34) 08/08/17 10:10 - Constitutional Appears: Non-toxic, No Acute Distress - Head Exam Head Exam: ATRAUMATIC, NORMOCEPHALIC - Eye Exam Eye Exam: EOMI, Normal appearance - ENT Exam ENT Exam: Mucous Membranes Moist - Respiratory Exam Respiratory Exam: Clear to Ausculation Bilateral, NORMAL BREATHING PATTERN. absent: Accessory Muscle Use, Rales, Rhonchi, Wheezes, Respiratory Distress - Cardiovascular Exam Cardiovascular Exam: REGULAR RHYTHM, +S1, +S2 - GI/Abdominal Exam GI & Abdominal Exam: Soft, Normal Bowel Sounds. absent: Distended, Firm, Guarding, Rigid, Tenderness - Extremities Exam Extremities Exam: Normal Inspection. 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 Opportunistic Infection Patient is more alert and awake today. She is only mildly confused. Not oriented to time. ID Dr. Meneses --> help appreciated * Continue Diflucan - CT head Negative - MRI - unremarkable - LDH - 478 - f/u CD4 - autocancelled by lab after 3 days, test reordered - called and spoke with lab about delay, labs drawn today, will have results soon. - f/u Viral Load - autocancelled by lab after 3 days, test reordered - called and spoke with lab about delay, labs drawn today, will have results soon. Must r/o infectious causes * CMV - IgG > 10; IgM <30; Dennotes previous infection, no acute infection * f/u Crypto - pending as of 08/18/17 * RPR - nonreactive * Toxoplasma - IgG < 7.2; IgM < 8 Bandemia/elevated WBC - Started bactrim (08/16/17) 30%bands on 08/16 --> 10% on - d/c bactrim 2.) New!!! Hyponatremia * Improving, Na - 126 (today) ; 122 (08/20) * Discontinued Bactrim due to effect leading to HYPONATREMIA, as per Dr. Meneses and Dr. Wong recs. * STOPPED medications due to potential s/e of hyponatremia * Zoloft, Trazodone and IV fluids. * Nephro Consult, Dr. Wong - help appreciated, f/u recs * urine sodium 113 * urine osmol 502 * serum osmol 276 * will continue to monitor 3.) Dysphagia Chest CT * particulate matter, possibly food, identified within the esophageal lumen intermixed with gas. * Incidental 6mm nodule within superior right breast. CXR * no acute cardiopulmonary disease Neck soft tissue CT * Abnormal circumferential thickening noted of the cervical esophagus. findings could be due to reflux esophagitis but esophageal carcinoma is not excluded. GI consulted, Dr. Cervantes --> help appreciated Barium Swallow - small hiatal hernia, otherwise unremarkable * Diflucan 100mg PO QD * Sucralfate 1 gm po 4.) Anemia * monitor 5.) Leukopenia * HIV screen Positive, F/U Confirmatory * hep panel negative * Patient will need to follow up with HIV clinic for continuation of HARRT therapy as out patient. * [facility] - Clinic at [address], [place] * [facility] - Clinic at [address], [place] Phone 6.) visual hallucination - resolved Psychiatry, Dr. Henderson --> help appreciated * haloperidol - held due to somnolence * hydroxyzine * zoloft - stopped see above * trazadone 50mg PO HS - stopped see above 7.) History of hypothyroidism - TSH: 27.8 - T3: 2.19 - T4: 0.89 * Synthroid 125mcg QD 8.) Diabetes Endo consulted, Dr. Nesha Donaldson * Started pt on Novolog 12u SC AC and Lantus 24u SC HS BS of 121 this am HgA1C - 7.1 accuchecks q6h * ISS - high Continue to monitor 9.) Urinary Retention * Bladder scan * if retaining, Insert pink 10.) Hyperkalemia, resolved * K=4.1 today 11.) Right breast mass - incidental finding on Chest CT * patient will need script for mammogram upon discharge. 12.) Prophylactic Care * Heparin 5000u sc q8h * Pepcid 20 ivp daily Case discussed w/ Dr. Dom Sahu PGY1 <Jameson Shah - Last Filed: 08/21/17 20:09> Objective - Vital Signs/Intake and Output Vital Signs (last 24 hours): Temp Pulse Resp BP Pulse Ox 98.7 F 84 20 149/73 100 08/21/17 16:00 08/21/17 16:00 08/21/17 16:00 08/21/17 16:00 08/21/17 16:00 Intake and Output: 08/21/17 08/22/17 18:59 06:59 Intake Total 600 Balance 600 - Medications Medications: Current Medications Benztropine Mesylate (Cogentin) 1 mg PO Q6 PRN PRN Reason: Allergy symptoms Last Admin: 08/21/17 04:14 Dose: 1 mg Famotidine (Pepcid) 20 mg PO DAILY JESSICA Last Admin: 08/21/17 09:09 Dose: 20 mg Haloperidol (Haldol) 5 mg PO Q6 PRN PRN Reason: Psychosis Hydroxyzine HCl (Atarax) 25 mg PO Q6 PRN PRN Reason: Agitation Last Admin: 08/11/17 17:35 Dose: 25 mg Insulin Aspart (Novolog) 0 unit SC ACHS JESSICA PRN Reason: Protocol Last Admin: 08/21/17 12:41 Dose: Not Given Insulin Aspart (Novolog) 6 unit SC AC JESSICA Last Admin: 08/21/17 11:42 Dose: 6 unit Insulin Glargine (Lantus) 12 unit SC HS [facility] Last Admin: 08/20/17 22:59 Dose: 12 units Levothyroxine Sodium (Synthroid) 125 mcg PO DAILY@0630 [facility] Last Admin: 08/21/17 06:30 Dose: 125 mcg Ondansetron HCl (Zofran Inj) 4 mg IVP Q6H PRN PRN Reason: Nausea/Vomiting Last Admin: 08/19/17 08:35 Dose: 4 mg Sucralfate (Carafate Oral Susp) 1 gm PO ACBHS [facility] Last Admin: 08/21/17 07:35 Dose: 1 gm - Labs Labs: 08/21/17 07:24 08/21/17 07:24 PT 11.2 SECONDS (9.7-12.2) 08/08/17 10:10 INR 1.0 08/08/17 10:10 APTT 25 SECONDS (21-34) 08/08/17 10:10 Attending/Attestation - Attestation I have personally seen and examined this patient.: Yes I have fully participated in the care of the patient.: Yes I have reviewed all pertinent clinical information, including history, physical exam and plan: Yes Notes (Text): 08/21/17 20:03 Patient was seen and examined at 5 PM 08/21/17. Exam, assessment and plan were thoroughly gone over with the resident Also on Exam: Cardio: Systolic Ejection Murmur heard best on left second intercostal space Bactrim discontinued secondary to the Hyponatremia Add prophylactic antibiotic after following up results for CD4, CD8, CD4/CD8, HIV RNA PCR Medicine Team please make sure to provide patient with information for HIV Clinic: [facility], and [facility] located [address] [place], [place] [id number] Please also note not to discuss HIV status with children as per patient's wishes as the children are not aware. Jameson Shah D.O.
[2017-08-21 08:02] LABS: IRON 160 ug/dL (37-170)
[2017-08-21 08:16] LABS: POTASSIUM 4.1 mmol/L (3.6-5.2)
[2017-08-21 08:18] LABS: ALB/GLOB RATIO 0.9 (1.0-2.1); BILIRUBIN,TOTAL 0.4 mg/dL (0.2-1.3); TOTAL PROTEIN 6.6 g/dL (6.3-8.3)
[2017-08-21 08:19] LABS: CALCIUM 8.7 mg/dl (8.6-10.4)
--- NOTE | 2017-08-21 16:27 | PN ---
DATE: ENDOCRINOLOGY FOLLOWUP NOTE LOCATION: Room 359. SUBJECTIVE: This is a 57-year-old female with recent uncontrolled type 1 insulin dependant diabetes, now being followed closely for metabolic management. She continues to have marked hyperglycemic accelerations with supervening hypoglycemic episodes last night because of the very nil and suboptimal oral intake at this time. LABORATORY DATA: Her latest chemistry showed a BUN of 10, sodium 126, potassium 4.1, chloride 90, CO2 is 22, glucose is 116, and creatinine is 1.4. Her glucose levels have ranged from 127 to 161 mg/dL. ASSESSMENT AND PLAN: So at this time, we will modify once again, her basal and bolus insulin regimen to accommodate the very nil and variable oral intake as given. We will lower the Lantus now to 12 units subcutaneous at bedtime daily to start tonight. We will also lower the NovoLog to 6 units subcutaneously t.i.d. before meals as ordered. We will titrate incrementally as indicated to optimize metabolic control. We will obtain serial chemistries and supplement accordingly as needed. We will follow with you. Nesha Donaldson MD
[2017-08-21] MEDS: (Lantus) Insulin Glargine, Recombinant SC SCH (21:35)
--- NOTE | 2017-08-21 23:22 | CP.PCM.PN ---
Objective - Vital Signs/Intake and Output Vital Signs (last 24 hours): Temp Pulse Resp BP Pulse Ox 98.7 F 84 20 149/73 100 08/21/17 16:00 08/21/17 16:00 08/21/17 16:00 08/21/17 16:00 08/21/17 16:00 Intake and Output: 08/21/17 08/22/17 18:59 06:59 Intake Total 600 Balance 600 - Medications Medications: Current Medications Benztropine Mesylate (Cogentin) 1 mg PO Q6 PRN PRN Reason: Allergy symptoms Last Admin: 08/21/17 21:34 Dose: 1 mg Famotidine (Pepcid) 20 mg PO DAILY [facility] Last Admin: 08/21/17 09:09 Dose: 20 mg Haloperidol (Haldol) 5 mg PO Q6 PRN PRN Reason: Psychosis Hydroxyzine HCl (Atarax) 25 mg PO Q6 PRN PRN Reason: Agitation Last Admin: 08/11/17 17:35 Dose: 25 mg Insulin Aspart (Novolog) 0 unit SC [facility] PRN Reason: Protocol Last Admin: 08/21/17 21:37 Dose: Not Given Insulin Aspart (Novolog) 6 unit SC AC [facility] Last Admin: 08/21/17 16:30 Dose: Not Given Insulin Glargine (Lantus) 12 unit SC HS [facility] Last Admin: 08/21/17 21:35 Dose: 12 units Levothyroxine Sodium (Synthroid) 125 mcg PO DAILY@0630 [facility] Last Admin: 08/21/17 06:30 Dose: 125 mcg Ondansetron HCl (Zofran Inj) 4 mg IVP Q6H PRN PRN Reason: Nausea/Vomiting Last Admin: 08/19/17 08:35 Dose: 4 mg Sucralfate (Carafate Oral Susp) 1 gm PO [facility] Last Admin: 08/21/17 21:34 Dose: 1 gm - Labs Labs: 08/21/17 07:24 08/21/17 07:24 PT 11.2 SECONDS (9.7-12.2) 08/08/17 10:10 INR 1.0 08/08/17 10:10 APTT 25 SECONDS (21-34) 08/08/17 10:10
--- NOTE | 2017-08-22 01:22 | CT ---
EXAM: CT Head Without Intravenous Contrast CLINICAL HISTORY: 57 years old, female; Signs and symptoms; Other: Confused; Patient HX: -9-18-17. Images sent already; Additional info: AMS TECHNIQUE: Axial computed tomography images of the head/brain without intravenous contrast. All CT scans at this facility use one or more dose reduction techniques, viz.: automated exposure control; ma/kV adjustment per patient size (including targeted exams where dose is matched to indication; i.e. head); or iterative reconstruction technique. Coronal and sagittal reformatted images were created and reviewed. COMPARISON: CT - HEAD W/O CONTRAST 08/11/2017 9:27:05 AM FINDINGS: Limitations: Motion artifact - mild to moderate. Brain: Mild atrophy. No definite intracranial hemorrhage. No mass. Few scattered foci of decreased attenuation within periventricular/subcortical white matter. No definite edema. Ventricles: No hydrocephalus. Bones/joints: No acute fracture. Soft tissues: Unremarkable. Sinuses: Mild focal mucosal thickening and/or fluid of RIGHT sphenoid sinus. Minimal mucosal thickening of LEFT sphenoid sinus. Mastoid air cells: No mastoid effusion. Orbits: Unremarkable as visualized. IMPRESSION: 1. Nonspecific white matter changes. Acute infarction may be CT occult within first 24 hours. If a focal deficit persists, consider followup CT or MRI for further evaluation. 2. Sinus disease.
--- NOTE | 2017-08-22 01:51 | PCM.RRT ---
[employer] Nurses Assessment - Situation Date: 08/21/17 Time [employer] was called: 23:37 [employer] Responder Arrival Time:: 23:40 [employer] Location:: Med/Oncology Room Number: 359 B [employer] Reason for Call: Change in Mental Status [employer] Called By: RN - IV IV Inserted during [employer]?: No - Respiratory [employer] Delivery Method: Nasal Cannula @L/min Received Nebulizer Treatments: No Was the Patient Ventilated with Bag/Mask 100% O2?: No Secretions Suctioned?: No Was the Patient Intubated?: No Was the Patient Placed on a Ventilator?: No - Diagnostic Test Ordered EKG: Yes Chest X-Ray: No CT Scan: Yes CPR started during [employer]?: No - Vital Signs Vital Signs: Rapid Response Vital Sign Blood Pressure 136/72 Pulse Rate 86 Respiratory Rate 20 Temperature 98.2 F Oxygen Saturation 100 - Time [employer] Ended Time [employer] Ended: 23:50 - Vital Signs at end of [employer] Vital Signs at end of [employer]: Rapid Response End Vital Sign Blood Pressure 137/85 Pulse Rate 84 Respiratory Rate 20 Temperature 98.8 F O2 Sat by Pulse Oximetry 100 - Recommendations Notifications: Attending Physician I.Reason for [employer] - A) Acute Change in Patient: (Select all that apply): Acute change in mental status Subjective: An [employer] was called at 23:37 on 08/21/17 for change in mental status. Per nurse, the patient is usually verbal and very talkative but prior to [employer] was not responding to questions and not opening her eyes. Myself and Dr Quijano arrived and evaluated the patient. She was having jerky movement of the arms bilaterally which per nurse is her baseline. She was not answering our questions and would not open her eyes. Her BP, O2 sat, HR, Temp, RR, and glucose were all within normal limits. We ordered a stat CT head and will follow the results. - Respiratory Oxygen Delivery Method: Nasal Cannula @L/min - Constitutional Appears: No Acute Distress - Head Head Exam: ATRAUMATIC, NORMAL INSPECTION - Eyes Additional Comments: would not open eyes even when I tried to lift her eyelids - Respiratory Exam Respiratory Exam: Clear to Ausculation Bilateral, NORMAL BREATHING PATTERN - Cardiovascular Exam Cardiovascular Exam: REGULAR RHYTHM - GI/Abdominal Exam GI & Abdominal Exam: Soft. absent: Tenderness - Neurological Exam Neurological Exam: Awake - Extremities Exam Extremities Exam: Normal Capillary Refill
[2017-08-22] MEDS ORDERED: Dextrose 50% SYRINGE Inj (50 ml) IV STA ×4 (03:25→21:40)
[2017-08-22] MEDS: Levothyroxine 125 MCG TAB PO SCH (06:35)
[2017-08-22 06:37] LABS: BASO % 0.5 % (0.0-2.0); EOS % 0.1 % (0.0-4.0); HEMATOCRIT 24.5 % (34.0-47.0); LYMPH # 1.4 K/uL (1.0-4.3); LYMPH % 29.4 % (20.0-40.0); MEAN CORPUSCULAR HEMOGLOBIN 30.3 pg (27.0-31.0); MEAN CORPUSCULAR HGB CONC 34.1 g/dL (33.0-37.0); MEAN PLATELET VOLUME 7.7 fL (7.2-11.7); MONO # 0.9 K/uL (0.0-0.8); MONO % 18.6 % (0.0-10.0); RED CELL DISTRIBUTION WIDTH 14.2 % (11.5-14.5); WHITE BLOOD COUNT 4.8 K/uL (4.8-10.8)
[2017-08-22 06:51] LABS: POTASSIUM 3.6 mmol/L (3.6-5.2)
[2017-08-22 06:53] LABS: BILIRUBIN,TOTAL 0.3 mg/dL (0.2-1.3)
[2017-08-22 06:54] LABS: ALB/GLOB RATIO 1.1 (1.0-2.1); TOTAL PROTEIN 6.8 g/dL (6.3-8.3)
[2017-08-22 06:55] LABS: CALCIUM 9.9 mg/dl (8.6-10.4); MAGNESIUM 1.8 mg/dL (1.6-2.3)
[2017-08-22] MEDS ORDERED: Dextrose 50% SYRINGE Inj (50 ml) ONE (07:46)
[2017-08-22] MEDS: (Novolog) Insulin Aspart, Recombinant 100 u/ml 10 ml vial SC SCH ×4 (08:18→21:38)
--- NOTE | 2017-08-22 08:59 | PN ---
SUBJECTIVE: The patient is awake and she had some stammers, but seems to be anxiety related. PHYSICAL EXAMINATION VITAL SIGNS: T-max is 98.7, pulse 84, blood pressure 149/73, respirations are 20. GENERAL: She tells me that she does not remember getting to that , sometimes she make sense, sometimes she does not. She denies any abdominal pain. No nausea. No vomiting. LUNGS: Clear. HEART: S1 and S2 is regular. ABDOMEN: Soft, nontender. No guarding. No rigidity present. EXTREMITIES: No edema. Her sodium was 126. Renal was concerned that Bactrim will worsen it. I do not think she needs Bactrim as IV as such, but may be her CD4 count may be low as she has this oral thrush present and she is HIV positive. 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 CD4 has been missing for a longtime. I hope it comes back and meanwhile I think we can start him on HIV medicine if she would get it, but the only problem is she has no insurance and we are not sure if she will have a setup to get it from the State, which needs to be looked in by the outsole caser. We will follow. Keep off the antibiotics as such. I would leave the Diflucan on if that would help her, but she is off it for now, so let us see. Jemal Meneses MD
[2017-08-22] MEDS: Sucralfate 1 gm/10 ml Oral Susp UD PO SCH ×2 (09:37→21:37)
[2017-08-22 11:34] LABS: % CD3 (MATURE T CELL) 66 Percent (57-85)
--- NOTE | 2017-08-22 13:01 | CP.PCM.CON ---
History of Present Illness - History of Present Illness History of Present Illness: Mrs. Morel is a 57-year-old woman who has been diagnosed with HIV since December , was on retroviral therapy, but lost her insurance and has been off for the last 4 months. In addition, she has a past medical history of HTN, Hypothyroid , DM, GERD, esophagitis, gastritis, and LOLIS (dialyzed for 4 weeks, permacath removed 5 days ago). She presented with progressive dysphagia, but has gradually developed myoclonic jerks, hallucinations and acute encephalopathy. Review of Systems - Review of Systems Systems not reviewed;Unavailable: Altered Mental Status Past Patient History - Past Medical History & Family History Past Medical History?: Yes - Past Social History Smoking Status: Never Smoked - CARDIAC Hx Hypertension: Yes - PULMONARY Hx Respiratory Disorders: No - NEUROLOGICAL Hx Neurological Disorder: No - HEENT Hx HEENT Problems: No - RENAL Hx Chronic Kidney Disease: No - ENDOCRINE/METABOLIC Hx Hypothyroidism: Yes - HEMATOLOGICAL/ONCOLOGICAL Hx Blood Disorders: No - INTEGUMENTARY Hx Dermatological Problems: No - MUSCULOSKELETAL/RHEUMATOLOGICAL Hx Musculoskeletal Disorders: No - GASTROINTESTINAL Hx Gastrointestinal Disorders: No - GENITOURINARY/GYNECOLOGICAL Hx Genitourinary Disorders: No - PSYCHIATRIC Hx Substance Use: No - SURGICAL HISTORY Hx Section: Yes (x2) - ANESTHESIA Hx Anesthesia: Yes Hx Anesthesia Reactions: No Meds Allergies/Adverse Reactions: Allergies Allergy/AdvReac Type Severity Reaction Status Date / Time Penicillins Allergy Severe ANGIOEDEMA Verified 08/08/17 09:37 - Medications Medications: Current Medications Benztropine Mesylate (Cogentin) 1 mg PO Q6 PRN PRN Reason: Allergy symptoms Last Admin: 08/21/17 21:34 Dose: 1 mg Famotidine (Pepcid) 20 mg PO DAILY JESSICA Last Admin: 08/22/17 09:37 Dose: 20 mg Haloperidol (Haldol) 5 mg PO Q6 PRN PRN Reason: Psychosis Hydroxyzine HCl (Atarax) 25 mg PO Q6 PRN PRN Reason: Agitation Last Admin: 08/11/17 17:35 Dose: 25 mg Insulin Aspart (Novolog) 0 unit SC ACHS JESSICA PRN Reason: Protocol Last Admin: 08/22/17 08:18 Dose: Not Given Insulin Aspart (Novolog) 4 unit SC AC JESSICA Insulin Glargine (Lantus) 8 unit SC HS JESSICA Levothyroxine Sodium (Synthroid) 125 mcg PO DAILY@0630 [facility] Last Admin: 08/22/17 06:35 Dose: Not Given Ondansetron HCl (Zofran Inj) 4 mg IVP Q6H PRN PRN Reason: Nausea/Vomiting Last Admin: 08/19/17 08:35 Dose: 4 mg Sucralfate (Carafate Oral Susp) 1 gm PO ACBHS [facility] Last Admin: 08/22/17 09:37 Dose: 1 gm Physical Exam - Constitutional Appears: Cachectic - Head Exam Head Exam: ATRAUMATIC, NORMAL INSPECTION - Eye Exam Eye Exam: EOMI - ENT Exam ENT Exam: Mucous Membranes Moist - Neck Exam Neck exam: Positive for: Normal Inspection - Cardiovascular Exam Cardiovascular Exam: REGULAR RHYTHM, +S1, +S2 - GI/Abdominal Exam GI & Abdominal Exam: Normal Bowel Sounds, Soft. absent: Tenderness - Rectal Exam Rectal Exam: Deferred - Extremities Exam Extremities exam: Positive for: normal inspection - Back Exam Back exam: NORMAL INSPECTION - Neurological Exam Neurological exam: Abnormal Gait, Altered, CN II-XII Intact Additional comments: Moves all extremities, sensation appears intact, she has diffuse jerking movements, appear to be myoclonic, she is hallucinating and delusional, she has automatisms. Reflexes were hyper, plantar response equivocal. - Psychiatric Exam Psychiatric exam: Anxious Additional comments: Visual and auditory hallucinations. - Skin Skin Exam: Dry, Intact, Normal Color, Warm Results - Vital Signs Recent Vital Signs: Last Vital Signs Temp 98 F 08/22/17 10:00 Pulse 81 08/22/17 10:00 Resp 20 08/22/17 10:00 BP 135/74 08/22/17 10:00 Pulse Ox 99 08/22/17 10:00 - Labs Result Diagrams: 08/22/17 06:33 08/22/17 06:33 Labs: Laboratory Results - last 24 hr 08/21/17 08/21/17 08/21/17 07:24 16:24 21:12 WBC RBC Hgb Hct MCV MCH MCHC RDW Plt Count MPV Neut % (Auto) Lymph % (Auto) Kendall % (Auto) Eos % (Auto) Baso % (Auto) Neut # Lymph # Kendall # Eos # Baso # Sodium Potassium Chloride Carbon Dioxide Anion Gap BUN Creatinine Est GFR ( Amer) Est GFR (Non-Af Amer) POC Glucose (mg/dL) 111 H 99 Random Glucose Calcium Phosphorus Magnesium Total Bilirubin AST ALT Alkaline Phosphatase Total Protein Albumin Globulin Albumin/Globulin Ratio Absolute Lymphs (Flow) 855 % CD3 Cells 66 Absolute CD3 Count 567 L % CD4 Cells 8 L Absolute CD4 Count 72 L T-Help/Suppress Ratio 0.15 L % CD8 Cells 57 H Absolute CD8 Count 487 08/21/17 08/22/17 08/22/17 23:39 03:20 03:56 WBC RBC Hgb Hct MCV MCH MCHC RDW Plt Count MPV Neut % (Auto) Lymph % (Auto) Kendall % (Auto) Eos % (Auto) Baso % (Auto) Neut # Lymph # Kendall # Eos # Baso # Sodium Potassium Chloride Carbon Dioxide Anion Gap BUN Creatinine Est GFR ( Amer) Est GFR (Non-Af Amer) POC Glucose (mg/dL) 95 46 L 226 H Random Glucose Calcium Phosphorus Magnesium Total Bilirubin AST ALT Alkaline Phosphatase Total Protein Albumin Globulin Albumin/Globulin Ratio Absolute Lymphs (Flow) % CD3 Cells Absolute CD3 Count % CD4 Cells Absolute CD4 Count T-Help/Suppress Ratio % CD8 Cells Absolute CD8 Count 08/22/17 08/22/17 08/22/17 06:04 06:33 06:33 WBC 4.8 RBC 2.75 L Hgb 8.4 L Hct 24.5 L MCV 89.0 D MCH 30.3 MCHC 34.1 RDW 14.2 Plt Count 148 MPV 7.7 Neut % (Auto) 51.4 Lymph % (Auto) 29.4 Kendall % (Auto) 18.6 H Eos % (Auto) 0.1 Baso % (Auto) 0.5 Neut # 2.5 Lymph # 1.4 Kendall # 0.9 H Eos # 0.0 Baso # 0.0 Sodium 129 L Potassium 3.6 Chloride 94 L Carbon Dioxide 16 L Anion Gap 23 H BUN 9 Creatinine 1.4 H Est GFR ( Amer) 47 Est GFR (Non-Af Amer) 38 POC Glucose (mg/dL) 78 Random Glucose 89 Calcium 9.9 Phosphorus 5.0 H Magnesium 1.8 Total Bilirubin 0.3 AST 44 H ALT 35 Alkaline Phosphatase 114 Total Protein 6.8 Albumin 3.5 Globulin 3.3 Albumin/Globulin Ratio 1.1 Absolute Lymphs (Flow) % CD3 Cells Absolute CD3 Count % CD4 Cells Absolute CD4 Count T-Help/Suppress Ratio % CD8 Cells Absolute CD8 Count 08/22/17 08/22/17 08/22/17 07:42 08:13 11:17 WBC RBC Hgb Hct MCV MCH MCHC RDW Plt Count MPV Neut % (Auto) Lymph % (Auto) Kendall % (Auto) Eos % (Auto) Baso % (Auto) Neut # Lymph # Kendall # Eos # Baso # Sodium Potassium Chloride Carbon Dioxide Anion Gap BUN Creatinine Est GFR ( Amer) Est GFR (Non-Af Amer) POC Glucose (mg/dL) 49 L 279 H 88 Random Glucose Calcium Phosphorus Magnesium Total Bilirubin AST ALT Alkaline Phosphatase Total Protein Albumin Globulin Albumin/Globulin Ratio Absolute Lymphs (Flow) % CD3 Cells Absolute CD3 Count % CD4 Cells Absolute CD4 Count T-Help/Suppress Ratio % CD8 Cells Absolute CD8 Count Assessment & Plan (1) Encephalopathy acute Assessment and Plan: This could be a rapidly progressive dementia, with hallucinations, delusions and myclonic jerks. With this patient's history, we should consider PML, paraneoplastic and limbic encephalopathy, as well as CJD. I recommend the followin. MRI of the brain with and without contrast 2. EEG 3. Check for JAGUAR virus 4. Check CD4 count, viral load, cultures 5. Consider LP to check for paraneoplastic panel and 14-3-3 protein 6. Start Depakote 500 mg IV Q12 7. DVT Px Thank you. Status: Acute Priority: High
--- NOTE | 2017-08-22 16:01 | MRI ---
PROCEDURE: MRI of the brain without contrast 08/22/2017 HISTORY: Encephalopathy; suspect PML COMPARISON: Comparison made with prior CT scan and MRI of the brain dated 08/22/2017 and 08/12/2017 respectively. TECHNIQUE: Multiplanar, multisequence MR images of the brain were obtained without intravenous contrast enhancement. FINDINGS: HEMORRHAGE: No acute parenchymal, subarachnoid or extra-axial hemorrhage. . No evidence of hemosiderin deposition identified on gradient echo weighted sequence DWI: No evidence of an acute or early subacute infarction seen on diffusion imaging. BRAIN PARENCHYMA: Mild diffuse /confluent nonspecific prolonged T2 signal changes are seen within the periventricular white matter most conspicuous in the perioccipital horn region and to a lesser degree perifrontal horn regions. In addition, there are a few small focal areas of increased T2 signal scattered about the deep and subcortical white matter of both cerebral hemispheres. . These changes are nonspecific however could represent sequela of HIV encephalopathy given the patient's history of HIV positive status. PML not excluded. Note also that the possibility of concomitant chronic sequela of small vessel disease or other differential diagnostic considerations including nonspecific encephalitis, or post infectious/inflammatory etiologies not excluded. Moderate generalized volume loss. VENTRICLES: No obstructive hydrocephalus CRANIUM: No acute calvarial abnormalities not withstanding changes seen in the left petrou the apex. Minor mucosal thickening within sphenoid sinus ORBITS: Orbits and contents grossly unremarkable. PARANASAL SINUSES/MASTOIDS: Re- demonstrated is a somewhat elliptical shaped area of prolonged T2 signal in the left petrous apex that corresponds to an elliptical shaped lucency in this location on CT scan. . Findings could represent secretions/opacification of exuberantly aerated mastoid air cells ramyfing into the left petrous apex however the possibility of apical petrositis or petrous apex cholesterol granuloma to be considered. VASCULAR SYSTEM: Visualized major vascular flow voids at skull base patent. OTHER FINDINGS: None. IMPRESSION: Mild diffuse/confluent nonspecific white matter changes as described. Findings are of uncertain etiology though could represent sequela of HIV encephalopathy. PML not excluded. See above discussion for additional differential diagnostic considerations. Questionable secretions/opacification of exuberantly aerated mastoid air cells ramyfing into the left petrous apex however the possibility apical petrositis or small the left petrous CT apex cholesterol granuloma.
[2017-08-22] MEDS ORDERED: Dextrose 25% Inj (10ml) IV ONE (21:18)
--- NOTE | 2017-08-22 22:24 | CP.PCM.PN ---
<Rupesh Sahu - Last Filed: 08/23/17 01:04> Subjective - Date & Time of Evaluation Date of Evaluation: 08/22/17 Time of Evaluation: 07:40 - Subjective Subjective: PGY1 Medicine Note for Dr. 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 Patient is altered today. She is speaking to herself and is experiencing increased shaking movement compared to previous days. She is not responding to any questions appropriately. Objective - Vital Signs/Intake and Output Vital Signs (last 24 hours): Temp Pulse Resp BP Pulse Ox 97.4 F L 70 20 117/72 99 08/22/17 18:14 08/22/17 18:14 08/22/17 18:14 08/22/17 18:14 08/22/17 18:14 - Medications Medications: Current Medications Benztropine Mesylate (Cogentin) 1 mg PO Q6 PRN PRN Reason: Allergy symptoms Last Admin: 08/21/17 21:34 Dose: 1 mg Famotidine (Pepcid) 20 mg PO DAILY [facility] Last Admin: 08/22/17 09:37 Dose: 20 mg Haloperidol (Haldol) 5 mg PO Q6 PRN PRN Reason: Psychosis Hydroxyzine HCl (Atarax) 25 mg PO Q6 PRN PRN Reason: Agitation Last Admin: 08/11/17 17:35 Dose: 25 mg Valproate Sodium 500 mg/ (Sodium Chloride) 105 mls @ 105 mls/hr IVPB Q12H JESSICA PRN Reason: Per Protocol Dextrose (Dextrose 5% In Water 1000 Ml) 1,000 mls @ 100 mls/hr IV .Q10H [facility] Last Admin: 08/22/17 21:30 Dose: 100 mls/hr Insulin Aspart (Novolog) 0 unit SC ACHS JESSICA PRN Reason: Protocol Last Admin: 08/22/17 21:38 Dose: Not Given Insulin Aspart (Novolog) 4 unit SC AC JESSICA Insulin Glargine (Lantus) 8 unit SC HS JESSICA Levothyroxine Sodium (Synthroid) 125 mcg PO DAILY@0630 [facility] Last Admin: 08/22/17 06:35 Dose: Not Given Ondansetron HCl (Zofran Inj) 4 mg IVP Q6H PRN PRN Reason: Nausea/Vomiting Last Admin: 08/19/17 08:35 Dose: 4 mg Sucralfate (Carafate Oral Susp) 1 gm PO ACBHS [facility] Last Admin: 08/22/17 21:37 Dose: Not Given Trimethoprim/Sulfamethoxazole (Bactrim Ds Tab) 1 tab PO Q24H [facility] - Labs Labs: 08/22/17 06:33 08/22/17 06:33 PT 11.2 SECONDS (9.7-12.2) 08/08/17 10:10 INR 1.0 08/08/17 10:10 APTT 25 SECONDS (21-34) 08/08/17 10:10 - Constitutional Appears: Unkempt, Confused - Eye Exam Eye Exam: EOMI - ENT Exam ENT Exam: Mucous Membranes Moist - Respiratory Exam Respiratory Exam: Clear to Ausculation Bilateral, NORMAL BREATHING PATTERN. absent: Accessory Muscle Use, Rales, Rhonchi, Wheezes, Respiratory Distress - Cardiovascular Exam Cardiovascular Exam: REGULAR RHYTHM, +S1, +S2 - GI/Abdominal Exam GI & Abdominal Exam: Soft, Normal Bowel Sounds. absent: Distended, Firm, Guarding, Rigid, Tenderness - Exam Exam: Bladder Distension (nurses unable to get the patient to urinate. has to be on bed cifuentes due to inabilty to stand due to AMS) - Extremities Exam Extremities Exam: Normal Inspection. absent: Calf Tenderness, Pedal Edema - Neurological Exam Neurological Exam: Altered, Awake, CN II-XII Intact. absent: Oriented x3 Additional comments: Pt is moving all extremities. She has diffuse jerking movements, believed to be myoclonic. She is hallucinating and delusional, with automatisms. Reflexes were hyper 3+ - Psychiatric Exam Psychiatric exam: Agitated, Anxious Additional comments: Visual and Auditory hallucinations - Skin Skin Exam: Dry, Intact, Normal Color, Warm Assessment and Plan - Assessment and Plan (Free Text) Assessment: Acute Encephalopathy - possible new onset Seizure (08/22)!!! Patient's mental status has decreased drastically in the past 24 hours. The patient had FOOD SERVICE AGENT called due to unresponsiveness/AMS. It was suspected that the patient potentially had a seizure over night. CT (08/22) was negative for any acute findings. Brain MRI was ordered for f/u. Neurology Consulted, Dr. Denney --> Help appreciated * Brain MRI w/o (08/22) - Mild diffuse/confluent nonspecific white matter changes as described. Findings are of uncertain etiology though could represent sequela of HIV encephalopathy. PML not excluded. See above discussion for additional differential diagnostic considerations. Questionable secretions/opacification of exuberantly aerated mastoid air cells ramyfing into the left petrous apex however the possibility apical petrositis or small the left petrous CT apex cholesterol granuloma. * We wanted study to be with and without contrast, but MRI changed order to w/o only due to patient's elevated creatinine. The patient's elevation in creatinine was due to use of Bactrim (dc'ed on 08/21) and its affect on tubular secretion of creatinine. Bactrim causes a false elevation in Cr --> this is NOT true kidney injury. Please get Brain MRI w/contrast in AM, per Dr. Denney. * f/u EEG ordered for morning of 08/23. * f/u JAGUAR virus * Started on Depakote 500mg IV Q12H Per Dr. Denney's note, we need to consider PML, paraneoplastic and limbic encephalopathy, as well as CJD. Patient may need LP to check for paraneoplastic panel and 14-3-3 protein. 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 Opportunistic Infection ID Dr. Meneses --> help appreciated * Continue Diflucan - CT head 08/11 - Negative - MRI 08/12 - unremarkable - LDH - 478 - CD4 - 72 (AIDS confirmed) - f/u Viral Load Must r/o infectious causes * CMV - IgG > 10; IgM <30; Dennotes previous infection, no acute infection * Crypto - <1:2 * RPR - nonreactive * Toxoplasma - IgG < 7.2; IgM < 8 Bandemia/elevated WBC - Started bactrim (08/16/17) 30%bands on 08/16 --> 10% on - d/c bactrim Hyponatremia * Improving, Na - 129 (today) ; 126 (08/21) 122 (08/20) * Discontinued Bactrim due to effect leading to HYPONATREMIA, as per Dr. Meneses and Dr. Wong recs. * STOPPED medications due to potential s/e of hyponatremia * Zoloft, Trazodone and IV fluids. * Nephro Consult, Dr. Wong - help appreciated, f/u recs * urine sodium 113 * urine osmol 502 * serum osmol 276 * will continue to monitor Dysphagia Chest CT * particulate matter, possibly food, identified within the esophageal lumen intermixed with gas. * Incidental 6mm nodule within superior right breast. CXR * no acute cardiopulmonary disease Neck soft tissue CT * Abnormal circumferential thickening noted of the cervical esophagus. findings could be due to reflux esophagitis but esophageal carcinoma is not excluded. GI consulted, Dr. Cervantes --> help appreciated Barium Swallow - small hiatal hernia, otherwise unremarkable * Diflucan 100mg PO QD * Sucralfate 1 gm po Anemia * monitor Leukopenia --> AIDS * HIV screen Positive, CD4 = 72 * hep panel negative * Patient will need to follow up with HIV clinic for continuation of HARRT therapy as out patient. * [facility] - Clinic at [address], [place] * [facility] - Clinic at [address], [place] Phone Visual and Auditory Hallucinations - RETURNED 08/22 Psychiatry, Dr. Henderson --> help appreciated * haloperidol - held due to somnolence * hydroxyzine * zoloft - stopped see above * trazadone 50mg PO HS - stopped see above History of hypothyroidism - TSH: 27.8 - T3: 2.19 - T4: 0.89 * Synthroid 125mcg QD Diabetes FOOD SERVICE AGENT called on pt for BS 34. one amp of D50 given. accucheck recheck showed reading of 317. second recheck on opposite hand showed 350. it was determined that the first reading was false. Nurse was concerned because patient was non- responsive. Pt was non responsive due to 3mg of ativan and 1mg of Haldol given to sedate patient for MRI earlier. Endo consulted, Dr. Nesha Donaldson * Started pt on Novolog 12u SC AC and Lantus 24u SC HS - HELD! SLIDING SCALE ONLY - pt currently not eating due to AMS BS of 88 this am (range 44-226) HgA1C - 7.1 accuchecks q6h * ISS - high Continue to monitor Urinary Retention * Bladder scan * if retaining, Insert pink Hyperkalemia, resolved * K=3.6 today Right breast mass - incidental finding on Chest CT * patient will need script for mammogram upon discharge. Prophylactic Care * Heparin 5000u sc q8h - DC'ed due to anemia * SCDs for DVT ppx * Pepcid 20 ivp daily * Fall precautions * 1-1 sitter Patient and patient's are the only people that know of the patient's HIV + status. was informed of AIDS diagnosis today. The patient and her do not want anyone else to know of the patient's diagnosis. If patient' s sons or mother are in the room, do not discuss patient's diagnosis with them!! ! Contact number for patient's (Emiliano Hoang) is wrong in the chart. His cell phone number is [phone]. Case discussed with Dr. Dorie Sahu PGY1 <Ashok Oshea - Last Filed: 08/23/17 10:11> Objective - Vital Signs/Intake and Output Vital Signs (last 24 hours): Temp Pulse Resp BP Pulse Ox 97.5 F L 58 L 20 149/77 100 08/23/17 08:00 08/23/17 08:00 08/23/17 08:00 08/23/17 08:00 08/23/17 08:00 Intake and Output: 08/23/17 08/23/17 06:59 18:59 Intake Total 1050 Output Total 1 Balance 1049 - Medications Medications: Current Medications Famotidine (Pepcid) 20 mg PO DAILY [facility] Last Admin: 08/22/17 09:37 Dose: 20 mg Haloperidol (Haldol) 5 mg PO Q6 PRN PRN Reason: Psychosis Hydroxyzine HCl (Atarax) 25 mg PO Q6 PRN PRN Reason: Agitation Last Admin: 08/11/17 17:35 Dose: 25 mg Valproate Sodium 500 mg/ (Sodium Chloride) 105 mls @ 105 mls/hr IVPB Q12H JESSICA PRN Reason: Per Protocol Last Admin: 08/23/17 01:10 Dose: 105 mls/hr Dextrose/Sodium Chloride (Dextrose 5%/0.9% Ns 1000 Ml) 1,000 mls @ 100 mls/hr IV .Q10H JESSICA Last Admin: 08/23/17 01:16 Dose: 100 mls/hr Insulin Aspart (Novolog) 0 unit SC ACHS JESSICA PRN Reason: Protocol Last Admin: 08/23/17 08:30 Dose: Not Given Insulin Aspart (Novolog) 4 unit SC AC [facility] Insulin Glargine (Lantus) 8 unit SC HS [facility] Levothyroxine Sodium (Synthroid) 125 mcg PO DAILY@0630 [facility] Last Admin: 08/23/17 06:49 Dose: 125 mcg Ondansetron HCl (Zofran Inj) 4 mg IVP Q6H PRN PRN Reason: Nausea/Vomiting Last Admin: 08/19/17 08:35 Dose: 4 mg Sucralfate (Carafate Oral Susp) 1 gm PO ACBHS [facility] Last Admin: 08/23/17 06:49 Dose: 1 gm Trimethoprim/Sulfamethoxazole (Bactrim Ds Tab) 1 tab PO Q24H [facility] - Labs Labs: 08/22/17 06:33 08/22/17 06:33 PT 11.2 SECONDS (9.7-12.2) 08/08/17 10:10 INR 1.0 08/08/17 10:10 APTT 25 SECONDS (21-34) 08/08/17 10:10 Attending/Attestation - Attestation I have personally seen and examined this patient.: Yes I have fully participated in the care of the patient.: Yes I have reviewed all pertinent clinical information, including history, physical exam and plan: Yes Notes (Text): Acute Encephalopathy - possible new onset Seizure (08/22) New HIV encephalopathy Possible PML Patient's mental status has decreased drastically in the past 24 hours. The patient had FOOD SERVICE AGENT called due to unresponsiveness/AMS. It was suspected that the patient potentially had a seizure over night. CT (08/22) was negative for any acute findings. Brain MRI was ordered for f/u. Spoke with re possible diagnoses and workup. Will follow up with neuro and discuss with ID re starting HAART.
[2017-08-22] MEDS ORDERED: (Lantus) Insulin Glargine, Recombinant SC SCH (22:30)
--- NOTE | 2017-08-23 00:27 | CP.PCM.PN ---
Subjective - Date & Time of Evaluation Date of Evaluation: 08/22/17 Time of Evaluation: 23:57 - Subjective Subjective: RAISER HELPER overnight due to AMS, patient was not responding to verbal stimuli; Objective - Vital Signs/Intake and Output Vital Signs (last 24 hours): Temp Pulse Resp BP Pulse Ox 97.4 F L 70 20 117/72 99 08/22/17 18:14 08/22/17 18:14 08/22/17 18:14 08/22/17 18:14 08/22/17 18:14 Intake and Output: 08/22/17 08/23/17 18:59 06:59 Intake Total 150 Output Total 1 Balance 149 - Medications Medications: Current Medications Benztropine Mesylate (Cogentin) 1 mg PO Q6 PRN PRN Reason: Allergy symptoms Last Admin: 08/21/17 21:34 Dose: 1 mg Famotidine (Pepcid) 20 mg PO DAILY [facility] Last Admin: 08/22/17 09:37 Dose: 20 mg Haloperidol (Haldol) 5 mg PO Q6 PRN PRN Reason: Psychosis Hydroxyzine HCl (Atarax) 25 mg PO Q6 PRN PRN Reason: Agitation Last Admin: 08/11/17 17:35 Dose: 25 mg Valproate Sodium 500 mg/ (Sodium Chloride) 105 mls @ 105 mls/hr IVPB Q12H JESSICA PRN Reason: Per Protocol Dextrose (Dextrose 5% In Water 1000 Ml) 1,000 mls @ 100 mls/hr IV .Q10H [facility] Last Admin: 08/22/17 21:30 Dose: 100 mls/hr Insulin Aspart (Novolog) 0 unit SC [facility] PRN Reason: Protocol Last Admin: 08/22/17 21:38 Dose: Not Given Insulin Aspart (Novolog) 4 unit SC AC [facility] Insulin Glargine (Lantus) 8 unit SC HS [facility] Levothyroxine Sodium (Synthroid) 125 mcg PO DAILY@0630 [facility] Last Admin: 08/22/17 06:35 Dose: Not Given Ondansetron HCl (Zofran Inj) 4 mg IVP Q6H PRN PRN Reason: Nausea/Vomiting Last Admin: 08/19/17 08:35 Dose: 4 mg Sucralfate (Carafate Oral Susp) 1 gm PO ACS [facility] Last Admin: 08/22/17 21:37 Dose: Not Given Trimethoprim/Sulfamethoxazole (Bactrim Ds Tab) 1 tab PO Q24H JESSICA - Labs Labs: 08/22/17 06:33 08/22/17 06:33 PT 11.2 SECONDS (9.7-12.2) 08/08/17 10:10 INR 1.0 08/08/17 10:10 APTT 25 SECONDS (21-34) 08/08/17 10:10 - Constitutional Appears: Non-toxic, No Acute Distress - Head Exam Head Exam: NORMAL INSPECTION Assessment and Plan (1) Hyponatremia Assessment & Plan: Improving off IV bactrim (trimethoprim component was acting like K sparing diuretic); furthermore, was being given in D5W; patient now started on PO bactrim, can also cause hyponatremia; continue to monitor serum Na and K ( hyperkalemia was also being caused by bactrim); if bactrim is deemed essential and hyponatremia ensues, will need to find other ways to keep Na stable (eg. salt tabs, even tolvaptan); will follow; Status: Acute (2) Hyperkalemia Assessment & Plan: Monitor now that on PO bactrim; may need kayexalate prn; Status: Acute (3) Anemia Assessment & Plan: Due to chronic disease; may benefit from EPO but consider heme consult to r/o myelodysplatic syndrome; Status: Acute (4) History of acute renal failure Assessment & Plan: Recent HD dependent LOLIS; background unknown, need records from [facility]; Status: Acute (5) Creatinine elevation Assessment & Plan: Due to bactrim, now improved but not back to baseline; will change IVF to D5NS to cover any pre-renal cause; Status: Acute
[2017-08-23] MEDS: Valproate 500 MG in Sodium Chloride 0.9% 100 ML IVPB SCH ×2 (01:10→14:41)
[2017-08-23] MEDS: Dextrose 5%/0.9% NS 1,000 ML IV SCH ×4 (01:16→22:04)
--- NOTE | 2017-08-23 02:03 | PN ---
ROOM: 657. SUBJECTIVE: This is a 57-year-old female with a recent uncontrolled, now being followed closely for metabolic management. Her glycemic levels are quite erratic and fluctuating because of the very nil and suboptimal oral intake as noted. Her glucose levels have ranged from 49 to 88 up to 79 mg/dL. LABORATORY DATA: Her latest chemistry showed a BUN of 9, sodium 129, potassium 3.6, chloride 94, CO2 of 16, glucose is 89, and creatinine is 1.4. So at this time, we will modify once again her basal and bolus insulin regimen and lower the Lantus to 8 units subcu at bedtime daily to start tonight. We will also lower the NovoLog to 4 units subcu t.i.d. before meals as ordered. We will obtain serial chemistries and supplement accordingly as needed. We will follow with you. Nesha Donaldson MD
--- NOTE | 2017-08-23 02:03 | PCM.RRT ---
[facility]ARD[facility] Nurses Assessment - Situation Date: 08/22/17 Time STEWARD/ST[facility]ARDESS WINE was called: 16:43 [facility] Responder Arrival Time:: 16:45 [facility] Location:: Med/Surg Room Number: 657B [facility] Reason for Call: Looks Sicker ST[facility]ARD/ST[facility] Called By: RN - IV IV Inserted during STEWARD/STEWARDESS WINE?: No IV Fluids Initiated During ST[facility]ARD/STEWARDESS WINE?: no - Respiratory [facility] Delivery Method: Room Air Received Nebulizer Treatments: No Was the Patient Ventilated with Bag/Mask 100% O2?: No Secretions Suctioned?: No Was the Patient Intubated?: No Was the Patient Placed on a Ventilator?: No - Medication Medications Administered During [facility]/ST[facility]INE: D50 1 amp ivp - Diagnostic Test Ordered EKG: No Chest X-Ray: No CT Scan: No - Stat Labs Ordered [facility] Stat Labs Ordered: CBC [facility] Other Labs Ordered: CMP/MAG/PHOS CPR started during STEWARD/STEWARDESS WINE?: No - Vital Signs Vital Signs: Rapid Response Vital Sign Blood Pressure 167/79 Pulse Rate 102 Respiratory Rate 20 Temperature 97.8 F Oxygen Saturation 100 - Time ST[facility]ARD/ST[facility]INE Ended Time STEWARD/STEWARDESS WINE Ended: 16:55 - Vital Signs at end of STEWARD/STEWARDESS WINE Vital Signs at end of STEWARD/STEWARDESS WINE: Rapid Response End Vital Sign Blood Pressure 129/68 Pulse Rate 82 Respiratory Rate 20 Temperature 97.6 F O2 Sat by Pulse Oximetry 100 - Recommendations Notifications: Attending Physician, Family or Designated Caregiver I.Reason for STEWARD/STEWARDESS WINE - A) Acute Change in Patient: (Select all that apply): Staff member or family is worried about patient ( unresponsive, BS=34) - Neurological Status (Select all that apply): absent: Responsive (non-responsive) - Respiratory Oxygen Delivery Method: Room Air - Constitutional Appears: No Acute Distress Additional Comments: sleeping in bed - Head Head Exam: ATRAUMATIC, NORMOCEPHALIC - Respiratory Exam Respiratory Exam: NORMAL BREATHING PATTERN - Neurological Exam Neurological Exam: Altered Plan - Assessment of Findings&Treatment Plan STEWARD/STEWARDESS WINE called on pt for BS 34. one amp of D50 given. accucheck recheck showed reading of 317. second recheck on opposite hand showed 350. it was determined that the first reading was false. Nurse was concerned because patient was non- responsive. Pt was non responsive due to 3mg of ativan and 1mg of Haldol given to sedate patient for MRI earlier.
[2017-08-23] MEDS: Sucralfate 1 gm/10 ml Oral Susp UD PO SCH ×2 (06:49→22:01)
[2017-08-23] MEDS: Levothyroxine 125 MCG TAB PO SCH (06:49)
[2017-08-23] MEDS: (Novolog) Insulin Aspart, Recombinant 100 u/ml 10 ml vial SC SCH ×4 (08:30→21:47)
--- NOTE | 2017-08-23 09:35 | CP.PCM.PN ---
<Pio Cui - Last Filed: 08/23/17 12:11> Subjective - Date & Time of Evaluation Date of Evaluation: 08/23/17 Time of Evaluation: 09:38 - Subjective Subjective: patient seen and examined at bedside this AM; patient is still altered and does not answer questions appropriately and cannot participate in the subjective history taking portion of exam; however repots "no pain". Objective - Vital Signs/Intake and Output Vital Signs (last 24 hours): Temp Pulse Resp BP Pulse Ox 97.5 F L 58 L 20 149/77 100 08/23/17 08:00 08/23/17 08:00 08/23/17 08:00 08/23/17 08:00 08/23/17 08:00 Intake and Output: 08/23/17 08/23/17 06:59 18:59 Intake Total 1050 Output Total 1 Balance 1049 - Medications Medications: Current Medications Benztropine Mesylate (Cogentin) 1 mg PO Q6 PRN PRN Reason: Allergy symptoms Last Admin: 08/21/17 21:34 Dose: 1 mg Famotidine (Pepcid) 20 mg PO DAILY [facility] Last Admin: 08/22/17 09:37 Dose: 20 mg Haloperidol (Haldol) 5 mg PO Q6 PRN PRN Reason: Psychosis Hydroxyzine HCl (Atarax) 25 mg PO Q6 PRN PRN Reason: Agitation Last Admin: 08/11/17 17:35 Dose: 25 mg Valproate Sodium 500 mg/ (Sodium Chloride) 105 mls @ 105 mls/hr IVPB Q12H [facility]ESSICA PRN Reason: Per Protocol Last Admin: 08/23/17 01:10 Dose: 105 mls/hr Dextrose/Sodium Chloride (Dextrose 5%/0.9% Ns 1000 Ml) 1,000 mls @ 100 mls/hr IV .Q10H [facility] Last Admin: 08/23/17 01:16 Dose: 100 mls/hr Insulin Aspart (Novolog) 0 unit SC [facility] PRN Reason: Protocol Last Admin: 08/23/17 08:30 Dose: Not Given Insulin Aspart (Novolog) 4 unit SC AC [facility]ESS[facility] Insulin Glargine (Lantus) 8 unit SC HS [facility] Levothyroxine Sodium (Synthroid) 125 mcg PO DAILY@0630 [facility] Last Admin: 08/23/17 06:49 Dose: 125 mcg Ondansetron HCl (Zofran Inj) 4 mg IVP Q6H PRN PRN Reason: Nausea/Vomiting Last Admin: 08/19/17 08:35 Dose: 4 mg Sucralfate (Carafate Oral Susp) 1 gm PO AC[facility] Last Admin: 08/23/17 06:49 Dose: 1 gm Trimethoprim/Sulfamethoxazole (Bactrim Ds Tab) 1 tab PO Q24H [facility]ESSICA - Labs Labs: 08/22/17 06:33 08/22/17 06:33 PT 11.2 SECONDS (9.7-12.2) 08/08/17 10:10 INR 1.0 08/08/17 10:10 APTT 25 SECONDS (21-34) 08/08/17 10:10 - Constitutional Appears: Chronically Ill - Head Exam Head Exam: ATRAUMATIC - Eye Exam Eye Exam: EOMI - ENT Exam ENT Exam: Mucous Membranes Dry - Neck Exam Neck Exam: absent: Lymphadenopathy - Respiratory Exam Respiratory Exam: Rales, NORMAL BREATHING PATTERN. absent: Clear to Ausculation Bilateral - Cardiovascular Exam Cardiovascular Exam: REGULAR RHYTHM - GI/Abdominal Exam GI & Abdominal Exam: Soft, Normal Bowel Sounds - Extremities Exam Extremities Exam: Full ROM. absent: Calf Tenderness - Back Exam Back Exam: NORMAL INSPECTION. absent: CVA tenderness (L), CVA tenderness (R) - Neurological Exam Neurological Exam: absent: Alert, Awake, Oriented x3 - Psychiatric Exam Psychiatric exam: absent: Normal Affect - Skin Skin Exam: Warm Assessment and Plan - Assessment and Plan (Free Text) Assessment: Acute Encephalopathy - possible new onset Seizure (08/22) Patient potentially had a seizure over night. CT (08/22) was negative for any acute findings. Brain MRI was ordered for f/u. Neurology Consulted, Dr. Denney --> Help appreciated Brain MRI w/o contrast(08/22) - Mild diffuse/confluent nonspecific white matter changes as described. Findings are of uncertain etiology though could represent sequela of HIV encephalopathy. PML not excluded. See above discussion for additional differential diagnostic considerations. Questionable secretions/opacification of exuberantly aerated mastoid air cells ramyfing into the left petrous apex however the possibility apical petrositis or small the left petrous CT apex cholesterol granuloma. * We wanted study to be with and without contrast, but MRI changed order to w/o only due to patient's elevated creatinine and low GFR. The patient's elevation in creatinine was due to use of Bactrim (dc'ed on 08/21) and its affect on tubular secretion of creatinine. Bactrim causes a false elevation in Cr --> this is NOT true kidney injury. Please get Brain MRI w/contrast in AM, per Dr. Denney. * awaiting creatinin from 08/23; MRI stated they still will not take patient; f/ u results; will order if GFR is better * f/u EEG ordered for morning of 08/23. * f/u JAGUAR virus * Started on Depakote 500mg IV Q12H Per Dr. Denney's note, we need to consider PML, paraneoplastic and limbic encephalopathy, as well as CJD. Patient may need LP to check for paraneoplastic panel and 14-3-3 protein. AMS 2/ AIDS Dementia Vs. Opportunistic Infection ID Dr. Meneses --> help appreciated * Continue Diflucan - CT head 08/11 - Negative - MRI 08/12 - unremarkable - LDH - 478 - CD4 - 72 (AIDS confirmed) - f/u Viral Load Must r/o infectious causes * CMV - IgG > 10; IgM <30; Dennotes previous infection, no acute infection * Crypto - <1:2 * RPR - nonreactive * Toxoplasma - IgG < 7.2; IgM < 8 Bandemia/elevated WBC/resolved Hyponatremia; resolving * Improving * Discontinued Bactrim due to effect leading to HYPONATREMIA, as per Dr. Meneses and Dr. Wong recs. * STOPPED medications due to potential s/e of hyponatremia * Zoloft, Trazodone and IV fluids. * Nephro Consult, Dr. Wong - help appreciated, f/u recs * urine sodium 113 * urine osmol 502 * serum osmol 276 * will continue to monitor Dysphagia Chest CT * particulate matter, possibly food, identified within the esophageal lumen intermixed with gas. * Incidental 6mm nodule within superior right breast. CXR * no acute cardiopulmonary disease Neck soft tissue CT * Abnormal circumferential thickening noted of the cervical esophagus. findings could be due to reflux esophagitis but esophageal carcinoma is not excluded. GI consulted, Dr. Cervantes --> help appreciated Barium Swallow - small hiatal hernia, otherwise unremarkable * Diflucan 100mg PO QD * Sucralfate 1 gm po Anemia * monitor Leukopenia --> AIDS * HIV screen Positive, CD4 = 72 * hep panel negative * Patient will need to follow up with HIV clinic for continuation of HARRT therapy as out patient. 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 Henderson --> help appreciated * haloperidol - held due to somnolence * hydroxyzine * zoloft - stopped see above * trazadone 50mg PO HS - stopped see above History of hypothyroidism - TSH: 27.8 - T3: 2.19 - T4: 0.89 * Synthroid 125mcg QD Diabetes hypoglycemia protocol RISS only for now Endo consulted, Dr. Nesha Donaldson * Started pt on Novolog 12u SC AC and Lantus 24u SC HS which has been held; the patient is not eating BS of 88 this am (range 44-226) HgA1C - 7.1 accuchecks q6h * ISS - high Continue to monitor Urinary Retention; resolved * Bladder scan * if retaining, Insert pink Hyperkalemia -will monitor Right breast mass - incidental finding on Chest CT * patient will need script for diagnostic mammogram with ultrasound and FNA upon discharge. Prophylactic Care * Heparin 5000u sc q8h - DC'ed due to anemia * SCDs for DVT ppx * Pepcid 20 ivp daily * Fall precautions * 1-1 sitter Patient and patient's are the only people that know of the patient's HIV + status. was informed of AIDS diagnosis today. The patient and her do not want anyone else to know of the patient's diagnosis. If patient' s sons or mother are in the room, do not discuss patient's diagnosis with them!! ! Contact number for patient's (Emiliano Hoang) is wrong in the chart. His cell phone number is [phone]. Case discussed with Dr. Dorie Cui PGY2 <Ashok Oshea - Last Filed: 08/24/17 10:21> Objective - Vital Signs/Intake and Output Vital Signs (last 24 hours): Temp Pulse Resp BP Pulse Ox 97.9 F 63 20 144/74 99 08/24/17 08:00 08/24/17 08:00 08/24/17 08:00 08/24/17 08:00 08/24/17 08:00 Intake and Output: 08/24/17 08/24/17 06:59 18:59 Intake Total 1700 Balance 1700 - Medications Medications: Current Medications Famotidine (Pepcid) 20 mg PO DAILY [facility] Last Admin: 08/24/17 10:09 Dose: 20 mg Haloperidol (Haldol) 5 mg PO Q6 PRN PRN Reason: Psychosis Hydroxyzine HCl (Atarax) 25 mg PO Q6 PRN PRN Reason: Agitation Last Admin: 08/11/17 17:35 Dose: 25 mg Valproate Sodium 500 mg/ (Sodium Chloride) 105 mls @ 105 mls/hr IVPB Q12H JESSICA PRN Reason: Per Protocol Last Admin: 08/24/17 02:08 Dose: 105 mls/hr Dextrose/Sodium Chloride (Dextrose 5%/0.9% Ns 1000 Ml) 1,000 mls @ 100 mls/hr IV .Q10H [facility] Last Admin: 08/24/17 09:55 Dose: 100 mls/hr Insulin Aspart (Novolog) 0 unit SC [facility] PRN Reason: Protocol Last Admin: 08/24/17 08:45 Dose: 2 unit Insulin Aspart (Novolog) 4 unit SC AC [facility] Last Admin: 08/24/17 08:45 Dose: 4 unit Insulin Glargine (Lantus) 8 unit SC [facility] Levothyroxine Sodium (Synthroid) 125 mcg PO DAILY@0630 [facility] Last Admin: 08/24/17 06:30 Dose: 125 mcg Ondansetron HCl (Zofran Inj) 4 mg IVP Q6H PRN PRN Reason: Nausea/Vomiting Last Admin: 08/19/17 08:35 Dose: 4 mg Sucralfate (Carafate Oral Susp) 1 gm PO ACS [facility] Last Admin: 08/24/17 06:33 Dose: 1 gm Trimethoprim/Sulfamethoxazole (Bactrim Ds Tab) 1 tab PO Q24H [facility] Last Admin: 08/23/17 22:02 Dose: 1 tab - Labs Labs: 10/01/17 08:21 08/24/17 08:27 PT 11.2 SECONDS (9.7-12.2) 08/08/17 10:10 INR 1.0 08/08/17 10:10 APTT 25 SECONDS (21-34) 08/08/17 10:10 Attending/Attestation - Attestation I have personally seen and examined this patient.: Yes I have fully participated in the care of the patient.: Yes I have reviewed all pertinent clinical information, including history, physical exam and plan: Yes Notes (Text): Change in ms seen on 08/22 much improved today on 08/23 possibly due to hyponatremia which improved possibly due to seizure for which new meds were started eeg pending HIV with AIDS
[2017-08-23 12:10] LABS: MEAN PLATELET VOLUME 8.2 fL (7.2-11.7); MONO # 0.3 K/uL (0.0-0.8); WHITE BLOOD COUNT 2.4 K/uL (4.8-10.8)
[2017-08-23 12:16] LABS: EOS % 1.5 % (0.0-4.0); HEMATOCRIT 23.2 % (34.0-47.0); LYMPH # 0.6 K/uL (1.0-4.3); LYMPH % 23.3 % (20.0-40.0); MEAN CELL VOLUME 88.7 fL (81.0-99.0); MEAN CORPUSCULAR HEMOGLOBIN 30.2 pg (27.0-31.0); MEAN CORPUSCULAR HGB CONC 34.1 g/dL (33.0-37.0); MONO % 13.7 % (0.0-10.0); NRBC % 0.1 % (0.0-2.0); RED CELL DISTRIBUTION WIDTH 14.1 % (11.5-14.5)
[2017-08-23 12:17] LABS: POTASSIUM 3.9 mmol/L (3.6-5.2)
[2017-08-23 12:19] LABS: BILIRUBIN,TOTAL 0.4 mg/dL (0.2-1.3)
[2017-08-23 12:20] LABS: ALB/GLOB RATIO 0.9 (1.0-2.1); TOTAL PROTEIN 6.3 g/dL (6.3-8.3)
[2017-08-23 12:21] LABS: CALCIUM 8.6 mg/dl (8.6-10.4)
[2017-08-23 13:36] LABS: RBC URINE 10 /hpf (0-3); URINE BACTERIA OCC (<OCC); URINE BILIRUBIN NEGATIVE (NEGATIVE); URINE BLOOD 1+ (NEGATIVE); URINE COLOR Yellow (YELLOW); URINE GLUCOSE (UA) 1+ mg/dL (Normal); URINE KETONE NEGATIVE (NEGATIVE); URINE LEUKOCYTE ESTERASE 3+ Leu/uL (Negative); URINE PROTEIN NEGATIVE (NEGATIVE); URINE UROBILINOGEN NORMAL mg/dL (0.2-1.0); WBC URINE 17 /hpf (0-5)
--- NOTE | 2017-08-23 15:54 | CARD ---
APPROVED REPORT EKG Measurement Heart [id number] <Conclusion> Normal sinus rhythm T wave abnormality, consider anterior ischemia Abnormal ECG
--- NOTE | 2017-08-23 16:47 | CP.PCM.PN ---
Subjective - Date & Time of Evaluation Date of Evaluation: 08/23/17 Time of Evaluation: 16:44 - Subjective Subjective: Mrs. Morel was seen and examined today at bedside. Today, she was significantly improved. She was conversant, appropriate in affect and was well oriented. She did not have any complaints. Objective - Vital Signs/Intake and Output Vital Signs (last 24 hours): Temp Pulse Resp BP Pulse Ox 98.2 F 66 20 155/79 H 100 08/23/17 15:40 08/23/17 15:40 08/23/17 15:40 08/23/17 15:40 08/23/17 15:40 Intake and Output: 08/23/17 08/23/17 06:59 18:59 Intake Total 1050 Output Total 1 Balance 1049 - Medications Medications: Current Medications Famotidine (Pepcid) 20 mg PO DAILY [facility] Last Admin: 08/23/17 10:46 Dose: 20 mg Haloperidol (Haldol) 5 mg PO Q6 PRN PRN Reason: Psychosis Hydroxyzine HCl (Atarax) 25 mg PO Q6 PRN PRN Reason: Agitation Last Admin: 08/11/17 17:35 Dose: 25 mg Valproate Sodium 500 mg/ (Sodium Chloride) 105 mls @ 105 mls/hr IVPB Q12H [facility]ESS[facility] PRN Reason: Per Protocol Last Admin: 08/23/17 14:41 Dose: 105 mls/hr Dextrose/Sodium Chloride (Dextrose 5%/0.9% Ns 1000 Ml) 1,000 mls @ 100 mls/hr IV .Q10H [facility] Last Admin: 08/23/17 11:46 Dose: 100 mls/hr Insulin Aspart (Novolog) 0 unit SC [facility] PRN Reason: Protocol Last Admin: 08/23/17 12:09 Dose: Not Given Insulin Aspart (Novolog) 4 unit SC AC [facility] Insulin Glargine (Lantus) 8 unit SC HS [facility] Levothyroxine Sodium (Synthroid) 125 mcg PO DAILY@0630 [facility] Last Admin: 08/23/17 06:49 Dose: 125 mcg Ondansetron HCl (Zofran Inj) 4 mg IVP Q6H PRN PRN Reason: Nausea/Vomiting Last Admin: 08/19/17 08:35 Dose: 4 mg Sucralfate (Carafate Oral Susp) 1 gm PO ACS [facility] Last Admin: 08/23/17 06:49 Dose: 1 gm Trimethoprim/Sulfamethoxazole (Bactrim Ds Tab) 1 tab PO Q24H [facility] - Labs Labs: 08/23/17 12:00 08/23/17 12:00 PT 11.2 SECONDS (9.7-12.2) 08/08/17 10:10 INR 1.0 08/08/17 10:10 APTT 25 SECONDS (21-34) 08/08/17 10:10 - Cardiovascular Exam Cardiovascular Exam: REGULAR RHYTHM, +S1, +S2. 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 The plan is for supportive management, HIV related infection prophylaxis and resuming anti-retroviral therapy to increase CD4 and reduce viral load. I recommend PT/OT evaluation and continued treatment. Status: Acute
[2017-08-23] MEDS: Tmp-Smz 800 mg-160 mg DS Tab PO SCH (22:02)
[2017-08-24] MEDS: Valproate 500 MG in Sodium Chloride 0.9% 100 ML IVPB SCH ×2 (02:08→14:24)
--- NOTE | 2017-08-24 02:56 | PN ---
ENDOCRINOLOGY FOLLOWUP NOTE DATE: ROOM: 657. SUBJECTIVE: This is a 57-year-old female with known history of type 1 insulin-dependent diabetes with extremes of glycemic fluctuation related to a very poor oral intake at this time and is now being followed closely for metabolic management. Her glycemic levels are fluctuating as noted and today's glucose values have ranged from 148 to 267 and 129 mg/dL. The highest glucose levels which was 329 as noted. LABORATORY DATA: Her latest chemistry showed a BUN of 7, sodium 133, potassium 3.9, chloride 97, CO2 of 23, glucose 203, and creatinine is 1.3. So, at this time, we will continue the same basal and bolus insulin regimen to allow the dose equilibration and keep her on the low dose correction scale given as NovoLog insulin as ordered. Lantus and NovoLog regimen for now because of the new extremes of suboptimal oral intake at this time. We will follow and advise accordingly. Nesha Donaldson MD
[2017-08-24] MEDS: Levothyroxine 125 MCG TAB PO SCH (06:30)
[2017-08-24] MEDS: Sucralfate 1 gm/10 ml Oral Susp UD PO SCH ×2 (06:33→22:39)
[2017-08-24 08:31] LABS: BASO % 0.9 % (0.0-2.0); EOS # 0.1 K/uL (0.0-0.7); EOS % 2.9 % (0.0-4.0); HEMATOCRIT 22.6 % (34.0-47.0); LYMPH # 0.6 K/uL (1.0-4.3); MEAN CELL VOLUME 90.1 fL (81.0-99.0); MEAN CORPUSCULAR HEMOGLOBIN 30.1 pg (27.0-31.0); MEAN CORPUSCULAR HGB CONC 33.5 g/dL (33.0-37.0); MONO # 0.3 K/uL (0.0-0.8); MONO % 14.8 % (0.0-10.0); NRBC % 0.1 % (0.0-2.0); WHITE BLOOD COUNT 2.1 K/uL (4.8-10.8)
[2017-08-24] MEDS: (Novolog) Insulin Aspart, Recombinant 100 u/ml 10 ml vial SC SCH ×6 (08:45→17:30)
[2017-08-24 08:52] LABS: CHLORIDE 103 mmol/L (98-107); SODIUM 136 mmol/L (132-148)
[2017-08-24 08:53] LABS: POTASSIUM 4.3 mmol/L (3.6-5.2)
[2017-08-24 08:55] LABS: ALB/GLOB RATIO 0.8 (1.0-2.1); ALKALINE PHOSPHATASE 107 U/L (38-126); ALT/SGPT 28 U/L (9-52); AST/SGOT 24 U/L (14-36); BILIRUBIN,TOTAL 0.3 mg/dL (0.2-1.3); BLOOD UREA NITROGEN 9 mg/dL (7-17); CARBON DIOXIDE 20 mmol/L (22-30); GFR AFRICAN-AMERICAN > 60; GLUCOSE,RANDOM 355 mg/dL (65-105); TOTAL PROTEIN 5.6 g/dL (6.3-8.3)
[2017-08-24 08:56] LABS: CALCIUM 7.8 mg/dl (8.6-10.4)
[2017-08-24] MEDS: Dextrose 5%/0.9% NS 1,000 ML IV SCH (09:55)
--- NOTE | 2017-08-24 11:17 | CP.PCM.PN ---
<Pio Cui - Last Filed: 08/24/17 13:21> Subjective - Date & Time of Evaluation Date of Evaluation: 08/24/17 Time of Evaluation: 11:15 - Subjective Subjective: Patient seen and examined at bedside this AM; denies any complaints; alert to person place and time today; denies fevers/chills, SANTOS, CP, SOB, abdominal pain, N/V/D, dysura/freq/urg or lower extremity pain/swelling Objective - Vital Signs/Intake and Output Vital Signs (last 24 hours): Temp Pulse Resp BP Pulse Ox 97.9 F 63 20 144/74 99 08/24/17 08:00 08/24/17 08:00 08/24/17 08:00 08/24/17 08:00 08/24/17 08:00 Intake and Output: 08/24/17 08/24/17 06:59 18:59 Intake Total 1700 Balance 1700 - Medications Medications: Current Medications Famotidine (Pepcid) 20 mg PO DAILY [facility] Last Admin: 08/24/17 10:09 Dose: 20 mg Haloperidol (Haldol) 5 mg PO Q6 PRN PRN Reason: Psychosis Hydroxyzine HCl (Atarax) 25 mg PO Q6 PRN PRN Reason: Agitation Last Admin: 08/11/17 17:35 Dose: 25 mg Valproate Sodium 500 mg/ (Sodium Chloride) 105 mls @ 105 mls/hr IVPB Q12H [facility] PRN Reason: Per Protocol Last Admin: 08/24/17 02:08 Dose: 105 mls/hr Dextrose/Sodium Chloride (Dextrose 5%/0.9% Ns 1000 Ml) 1,000 mls @ 100 mls/hr IV .Q10H [facility] Last Admin: 08/24/17 09:55 Dose: 100 mls/hr Insulin Aspart (Novolog) 0 unit SC ACHS [facility] PRN Reason: Protocol Last Admin: 08/24/17 08:45 Dose: 2 unit Insulin Aspart (Novolog) 4 unit SC AC [facility] Last Admin: 08/24/17 08:45 Dose: 4 unit Insulin Glargine (Lantus) 8 unit SC HS [facility] Levothyroxine Sodium (Synthroid) 125 mcg PO DAILY@0630 [facility] Last Admin: 08/24/17 06:30 Dose: 125 mcg Ondansetron HCl (Zofran Inj) 4 mg IVP Q6H PRN PRN Reason: Nausea/Vomiting Last Admin: 08/19/17 08:35 Dose: 4 mg Sucralfate (Carafate Oral Susp) 1 gm PO ACBHS [facility] Last Admin: 08/24/17 06:33 Dose: 1 gm Trimethoprim/Sulfamethoxazole (Bactrim Ds Tab) 1 tab PO Q24H [facility] Last Admin: 08/23/17 22:02 Dose: 1 tab - Labs Labs: 08/24/17 08:21 08/24/17 08:27 PT 11.2 SECONDS (9.7-12.2) 08/08/17 10:10 INR 1.0 08/08/17 10:10 APTT 25 SECONDS (21-34) 08/08/17 10:10 - Constitutional Appears: Non-toxic - Head Exam Head Exam: ATRAUMATIC - Eye Exam Eye Exam: EOMI - ENT Exam ENT Exam: Mucous Membranes Moist - Neck Exam Neck Exam: Full ROM. absent: Lymphadenopathy - Respiratory Exam Respiratory Exam: Clear to Ausculation Bilateral, NORMAL BREATHING PATTERN. absent: Rales, Rhonchi, Wheezes - Cardiovascular Exam Cardiovascular Exam: REGULAR RHYTHM, +S1, +S2 - GI/Abdominal Exam GI & Abdominal Exam: Soft, Normal Bowel Sounds. absent: Tenderness - Extremities Exam Extremities Exam: Full ROM. absent: Calf Tenderness - Back Exam Back Exam: NORMAL INSPECTION. absent: CVA tenderness (L), CVA tenderness (R) - Neurological Exam Neurological Exam: Alert, Awake, Oriented x3 - Psychiatric Exam Psychiatric exam: Normal Affect - Skin Skin Exam: Warm Assessment and Plan - Assessment and Plan (Free Text) Assessment: Acute Encephalopathy - possible new onset Seizure (08/22) Patient potentially had a seizure over night. CT (08/22) was negative for any acute findings. Brain MRI was ordered for f/u. patient has not had any more events since then Neurology Consulted, Dr. Denney --> Help appreciated; states that all changes in AMS are most likely due to AIDS Brain MRI w/o contrast(08/22) - Mild diffuse/confluent nonspecific white matter changes as described. Findings are of uncertain etiology though could represent sequela of HIV encephalopathy. PML not excluded. See above discussion for additional differential diagnostic considerations. Questionable secretions/opacification of exuberantly aerated mastoid air cells ramyfing into the left petrous apex however the possibility apical petrositis or small the left petrous CT apex cholesterol granuloma. * f/u EEG ordered for morning of 08/23; was done; awaiting final read * f/u JAGUAR virus * Started on Depakote 500mg IV Q12H * 08/24: patient is more alert/oriented to person place and time AMS 2/2 AIDS Dementia Vs. Opportunistic Infection ID Dr. Meneses --> help appreciated * Continue Diflucan - CT head 08/11 - Negative - MRI 08/12 - unremarkable - LDH - 478 - CD4 - 72 (AIDS confirmed) - f/u Viral Load Must r/o infectious causes * CMV - IgG > 10; IgM <30; Dennotes previous infection, no acute infection * Crypto - <1:2 * RPR - nonreactive * Toxoplasma - IgG < 7.2; IgM < 8 Bandemia/elevated WBC/resolved Hyponatremia; resolved * Improving * Discontinued Bactrim due to effect leading to HYPONATREMIA, as per Dr. Meneses and Dr. Wong recs. * STOPPED medications due to potential s/e of hyponatremia * Zoloft, Trazodone and IV fluids. * Nephro Consult, Dr. Wong - help appreciated, f/u recs * urine sodium 113 * urine osmol 502 * serum osmol 276 * will continue to monitor Dysphagia; resolved Chest CT * particulate matter, possibly food, identified within the esophageal lumen intermixed with gas. * Incidental 6mm nodule within superior right breast. CXR * no acute cardiopulmonary disease Neck soft tissue CT * Abnormal circumferential thickening noted of the cervical esophagus. findings could be due to reflux esophagitis but esophageal carcinoma is not excluded. GI consulted, Dr. Cervantes --> help appreciated Barium Swallow - small hiatal hernia, otherwise unremarkable * Diflucan 100mg PO QD * Sucralfate 1 gm po Anemia; most likely 2/2 to advanced AIDS * monitor Leukopenia --> AIDS * HIV screen Positive, CD4 = 72 * hep panel negative * Patient will need to follow up with HIV clinic for continuation of HARRT therapy as out patient. 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 Henderson --> help appreciated * haloperidol - held due to somnolence * hydroxyzine * zoloft - stopped see above * trazadone 50mg PO HS - stopped see above History of hypothyroidism; stable - TSH: 27.8 - T3: 2.19 - T4: 0.89 * Synthroid 125mcg QD Diabetes hypoglycemia protocol RISS only for now Endo consulted, Dr. Nesha Donaldson; appreciate recs * Started pt on Novolog 12u SC AC and Lantus 24u SC HS which has been held; the patient is not eating BS of 88 this am (range 44-226) HgA1C - 7.1 accuchecks q6h * ISS - high Continue to monitor Urinary Retention; resolved * Bladder scan * if retaining, Insert pink Hyperkalemia; resolved -will monitor Right breast mass - incidental finding on Chest CT; f/u as outpatient * patient will need script for diagnostic mammogram with ultrasound and FNA upon discharge. Prophylactic Care * Heparin 5000u sc q8h - DC'ed due to anemia * SCDs for DVT ppx * Pepcid 20 ivp daily * Fall precautions * 1-1 sitter Patient and patient's are the only people that know of the patient's HIV + status. was informed of AIDS diagnosis today. The patient and her do not want anyone else to know of the patient's diagnosis. If patient' s sons or mother are in the room, do not discuss patient's diagnosis with them!! ! Contact number for patient's (Emiliano Hoang) is wrong in the chart. His cell phone number is [phone]. Case discussed with Dr. Dorie Cui PGY2 <Ashok Oshea - Last Filed: 08/24/17 14:50> Objective - Vital Signs/Intake and Output Vital Signs (last 24 hours): Temp Pulse Resp BP Pulse Ox 97.9 F 63 20 144/74 99 08/24/17 08:00 08/24/17 08:00 08/24/17 08:00 08/24/17 08:00 08/24/17 08:00 Intake and Output: 08/24/17 08/24/17 06:59 18:59 Intake Total 1700 Balance 1700 - Medications Medications: Current Medications Famotidine (Pepcid) 20 mg PO DAILY [facility] Last Admin: 08/24/17 10:09 Dose: 20 mg Haloperidol (Haldol) 5 mg PO Q6 PRN PRN Reason: Psychosis Hydroxyzine HCl (Atarax) 25 mg PO Q6 PRN PRN Reason: Agitation Last Admin: 08/11/17 17:35 Dose: 25 mg Valproate Sodium 500 mg/ (Sodium Chloride) 105 mls @ 105 mls/hr IVPB Q12H [facility] PRN Reason: Per Protocol Last Admin: 08/24/17 14:24 Dose: 105 mls/hr Dextrose/Sodium Chloride (Dextrose 5%/0.9% Ns 1000 Ml) 1,000 mls @ 100 mls/hr IV .Q10H [facility] Last Admin: 08/24/17 09:55 Dose: 100 mls/hr Insulin Aspart (Novolog) 0 unit SC [facility] PRN Reason: Protocol Last Admin: 08/24/17 12:30 Dose: Not Given Insulin Aspart (Novolog) 4 unit SC [facility] Last Admin: 08/24/17 12:30 Dose: Not Given Insulin Glargine (Lantus) 8 unit SC [facility] Levothyroxine Sodium (Synthroid) 125 mcg PO DAILY@0630 [facility] Last Admin: 08/24/17 06:30 Dose: 125 mcg Ondansetron HCl (Zofran Inj) 4 mg IVP Q6H PRN PRN Reason: Nausea/Vomiting Last Admin: 08/19/17 08:35 Dose: 4 mg Sucralfate (Carafate Oral Susp) 1 gm PO ACS [facility] Last Admin: 08/24/17 06:33 Dose: 1 gm Trimethoprim/Sulfamethoxazole (Bactrim Ds Tab) 1 tab PO Q24H [facility] Last Admin: 08/23/17 22:02 Dose: 1 tab - Labs Labs: 08/24/17 08:21 08/24/17 08:27 PT 11.2 SECONDS (9.7-12.2) 08/08/17 10:10 INR 1.0 08/08/17 10:10 APTT 25 SECONDS (21-34) 08/08/17 10:10 Attending/Attestation - Attestation I have personally seen and examined this patient.: Yes I have fully participated in the care of the patient.: Yes I have reviewed all pertinent clinical information, including history, physical exam and plan: Yes Notes (Text): Change in ms seen on 08/22 much improved today on 08/23 possibly due to hyponatremia which improved possibly due to seizure for which new meds were started eeg pending HIV with AIDS
[2017-08-24] MEDS: Tmp-Smz 800 mg-160 mg DS Tab PO SCH (20:15)
--- NOTE | 2017-08-24 21:41 | PN ---
DATE: ENDOCRINOLOGY FOLLOW NOTE LOCATION: 657 SUBJECTIVE: This is a 57-year-old female with recent uncontrolled type I insulin dependent diabetes with continued glycemic fluctuations because of viabilities of oral intake. Her glucose levels today have ranged from 168 to 314 mg/dL. LABORATORY DATA: The latest chemistry showed a BUN of 9, sodium 136, potassium 4.3, chloride 103, CO2 20, glucose 355, and creatinine 1.1. ASSESSMENT AND PLAN: So, at this time, we will modify once again her basal and bolus insulin regimen and increase the NovoLog to 60 units subcu t.i.d. before meals and continue the Lantus given as 12 units subcu at bedtime daily as given. We will titrate incremental indicated to optimize metabolic control. We will follow with you. Nesha Donaldson MD
[2017-08-24] MEDS ORDERED: (Lantus) Insulin Glargine, Recombinant SC SCH ×2 (22:00→22:30)
[2017-08-25 00:12] LABS: SPECIMEN SOURCE Serum
[2017-08-25] MEDS: Valproate 500 MG in Sodium Chloride 0.9% 100 ML IVPB SCH ×2 (02:02→13:48)
[2017-08-25] MEDS: Sucralfate 1 gm/10 ml Oral Susp UD PO SCH ×2 (06:30→22:28)
[2017-08-25] MEDS: Levothyroxine 125 MCG TAB PO SCH (06:30)
[2017-08-25 07:25] LABS: BASO % 0.8 % (0.0-2.0); EOS # 0.1 K/uL (0.0-0.7); EOS % 4.6 % (0.0-4.0); HEMATOCRIT 22.3 % (34.0-47.0); LYMPH # 0.4 K/uL (1.0-4.3); LYMPH % 23.6 % (20.0-40.0); MEAN CELL VOLUME 90.3 fL (81.0-99.0); MEAN CORPUSCULAR HEMOGLOBIN 30.2 pg (27.0-31.0); MEAN CORPUSCULAR HGB CONC 33.4 g/dL (33.0-37.0); MEAN PLATELET VOLUME 7.9 fL (7.2-11.7); MONO # 0.2 K/uL (0.0-0.8); MONO % 10.7 % (0.0-10.0); NRBC % 0.1 % (0.0-2.0)
[2017-08-25 07:36] LABS: WHITE BLOOD COUNT 1.8 K/uL (4.8-10.8)
[2017-08-25 07:37] LABS: ALB/GLOB RATIO 0.8 (1.0-2.1); ALKALINE PHOSPHATASE 107 U/L (38-126); ALT/SGPT 24 U/L (9-52); AST/SGOT 18 U/L (14-36); BILIRUBIN,TOTAL 0.2 mg/dL (0.2-1.3); BLOOD UREA NITROGEN 8 mg/dL (7-17); CARBON DIOXIDE 19 mmol/L (22-30); CHLORIDE 105 mmol/L (98-107); GFR AFRICAN-AMERICAN > 60; GLUCOSE,RANDOM 248 mg/dL (65-105); POTASSIUM 3.8 mmol/L (3.6-5.2); SODIUM 135 mmol/L (132-148); TOTAL PROTEIN 5.3 g/dL (6.3-8.3)
[2017-08-25 07:59] LABS: THYROID STIMULATING HORMONE 1.41 mIU/L (0.46-4.68)
[2017-08-25] MEDS: (Novolog) Insulin Aspart, Recombinant 100 u/ml 10 ml vial SC SCH ×6 (08:30→17:31)
[2017-08-25] MEDS: Dextrose 5%/0.9% NS 1,000 ML IV SCH ×2 (10:43→21:45)
--- NOTE | 2017-08-25 15:35 | PN ---
LOCATION: Room #657 This is a 57-year-old female with uncontrolled type 1 insulin-dependent diabetes, now being followed for metabolic management. Her oral intake remains very suboptimal and variable at this time with supervening glycemic fluctuations as expected thereof. Her glucose levels today have ranged from 116 to 309 mm/dL. Her latest chemistry showed BUN of 8, sodium 135, potassium 3.8, chloride 109, CO2 of 90, glucose 248 and creatinine 1.0. So, at this time we will modify once again her basal insulin and increase the Lantus to 16 units subcutaneous at bedtime daily to start tonight. We will titrate incrementally as indicated to optimize metabolic control. We will also continue the very low dose correction scale using Novolog insulin as given. Moreover, we will continue the very low dose Novolog giving 6 units subcutaneous t.i.d. before meals as ordered. We will titrate incrementally as indicated to optimize metabolic control. We will follow and advice accordingly. Nesha Donaldson MD
--- NOTE | 2017-08-25 16:15 | CP.PCM.PN ---
Subjective - Date & Time of Evaluation Date of Evaluation: 08/25/17 Time of Evaluation: 04:00 - Subjective Subjective: dictated Objective - Vital Signs/Intake and Output Vital Signs (last 24 hours): Temp Pulse Resp BP Pulse Ox 98.5 F 71 20 166/73 H 100 08/25/17 15:58 08/25/17 15:58 08/25/17 15:58 08/25/17 15:58 08/25/17 15:58 Intake and Output: 08/25/17 08/25/17 06:59 18:59 Intake Total 950 Balance 950 - Medications Medications: Current Medications Famotidine (Pepcid) 20 mg PO DAILY [facility] Last Admin: 08/25/17 09:39 Dose: 20 mg Haloperidol (Haldol) 5 mg PO Q6 PRN PRN Reason: Psychosis Hydroxyzine HCl (Atarax) 25 mg PO Q6 PRN PRN Reason: Agitation Last Admin: 08/11/17 17:35 Dose: 25 mg Valproate Sodium 500 mg/ (Sodium Chloride) 105 mls @ 105 mls/hr IVPB Q12H [facility] PRN Reason: Per Protocol Last Admin: 08/25/17 13:48 Dose: 105 mls/hr Dextrose/Sodium Chloride (Dextrose 5%/0.9% Ns 1000 Ml) 1,000 mls @ 100 mls/hr IV .Q10H [facility] Last Admin: 08/25/17 10:43 Dose: 100 mls/hr Insulin Aspart (Novolog) 0 unit SC [facility] PRN Reason: Protocol Last Admin: 08/25/17 11:35 Dose: Not Given Insulin Aspart (Novolog) 6 unit SC AC [facility] Last Admin: 08/25/17 09:41 Dose: 6 unit Insulin Glargine (Lantus) 16 unit SC [facility] Levothyroxine Sodium (Synthroid) 125 mcg PO DAILY@0630 [facility] Last Admin: 08/25/17 06:30 Dose: 125 mcg Ondansetron HCl (Zofran Inj) 4 mg IVP Q6H PRN PRN Reason: Nausea/Vomiting Last Admin: 08/19/17 08:35 Dose: 4 mg Sucralfate (Carafate Oral Susp) 1 gm PO ACS [facility] Last Admin: 08/25/17 06:30 Dose: 1 gm Trimethoprim/Sulfamethoxazole (Bactrim Ds Tab) 1 tab PO [facility] JESSICA - Labs Labs: 08/25/17 07:05 08/25/17 07:05 PT 11.2 SECONDS (9.7-12.2) 08/08/17 10:10 INR 1.0 08/08/17 10:10 APTT 25 SECONDS (21-34) 08/08/17 10:10
--- NOTE | 2017-08-25 16:16 | CP.PCM.PN ---
Subjective - Date & Time of Evaluation Date of Evaluation: 08/25/17 Time of Evaluation: 16:13 - Subjective Subjective: Ms. Morel was seen and examined at the bedside. She denies any headache, dizziness, hallucinations, numbness, or weakness. She is more responsive to all stimuli with appropriate answer. She has a 1:1 sitter.There was no untoward events overnight. Objective - Vital Signs/Intake and Output Vital Signs (last 24 hours): Temp Pulse Resp BP Pulse Ox 98.5 F 71 20 166/73 H 100 08/25/17 15:58 08/25/17 15:58 08/25/17 15:58 08/25/17 15:58 08/25/17 15:58 Intake and Output: 08/25/17 08/25/17 06:59 18:59 Intake Total 950 Balance 950 - Medications Medications: Current Medications Famotidine (Pepcid) 20 mg PO DAILY [facility] Last Admin: 08/25/17 09:39 Dose: 20 mg Haloperidol (Haldol) 5 mg PO Q6 PRN PRN Reason: Psychosis Hydroxyzine HCl (Atarax) 25 mg PO Q6 PRN PRN Reason: Agitation Last Admin: 08/11/17 17:35 Dose: 25 mg Valproate Sodium 500 mg/ (Sodium Chloride) 105 mls @ 105 mls/hr IVPB Q12H [facility] PRN Reason: Per Protocol Last Admin: 08/25/17 13:48 Dose: 105 mls/hr Dextrose/Sodium Chloride (Dextrose 5%/0.9% Ns 1000 Ml) 1,000 mls @ 100 mls/hr IV .Q10H [facility] Last Admin: 08/25/17 10:43 Dose: 100 mls/hr Insulin Aspart (Novolog) 0 unit SC ACHS [facility] PRN Reason: Protocol Last Admin: 08/25/17 11:35 Dose: Not Given Insulin Aspart (Novolog) 6 unit SC AC [facility] Last Admin: 08/25/17 09:41 Dose: 6 unit Insulin Glargine (Lantus) 16 unit SC HS [facility] Levothyroxine Sodium (Synthroid) 125 mcg PO DAILY@0630 [facility] Last Admin: 08/25/17 06:30 Dose: 125 mcg Ondansetron HCl (Zofran Inj) 4 mg IVP Q6H PRN PRN Reason: Nausea/Vomiting Last Admin: 08/19/17 08:35 Dose: 4 mg Sucralfate (Carafate Oral Susp) 1 gm PO ACBHS [facility] Last Admin: 08/25/17 06:30 Dose: 1 gm Trimethoprim/Sulfamethoxazole (Bactrim Ds Tab) 1 tab PO Q24H [facility] Last Admin: 08/24/17 20:15 Dose: 1 tab - Labs Labs: 08/25/17 07:05 08/25/17 07:05 PT 11.2 SECONDS (9.7-12.2) 08/08/17 10:10 INR 1.0 08/08/17 10:10 APTT 25 SECONDS (21-34) 08/08/17 10:10 - Constitutional Appears: Cachectic - Head Exam Head Exam: ATRAUMATIC, NORMAL INSPECTION, NORMOCEPHALIC - Neurological Exam Neurological Exam: Alert, Awake, CN II-XII Intact, Normal Gait, Oriented x3 Neuro motor strength exam: Left Upper Extremity: 4, Right Upper Extremity: 4, Left Lower Extremity: 4, Right Lower Extremity: 4 Additional comments: Neurological improved from previous examination. She is able to follow commands , answer questions appropriately. Assessment and Plan (1) Encephalopathy acute Assessment & Plan: Case discussed with Dr. Denney, continue current medical, physical, and occupational therapies. Treat underlying medical condition/ infection.No new recommendation from neurology. Status: Acute
--- NOTE | 2017-08-25 16:49 | PCM.EEG ---
Electroencephalogram Report - Electroencephalogram Report Procedure Date: 08/23/17 Interpretation: Indication: Suspected encephalopathy. Medications were reviewed. Technical: This is a digitally recorded electroencephalogram. The international 10-20 electrode placement system is used for scalp electrode placement. Sixteen channels of scalp EEG are recorded Another channel was used for for ECG. The data are stored digitally and reviewed in reformatted montages for optimal display. Background: 9 to 10 hertz alpha activity was seen. Maximal over the posterior head region. These activities are symmetric on both sides. Description: No focal slowing was seen. No seizure like activity was observed during this recording. Patient entered into periods of drowsiness and light sleep. Diffuse Abnormality: Increased beta activity was seen intermittently. Impression: This is a probably normal EEG. There was increased beta activity noticed intermittently. This could be a normal finding. No focal slowing no seizure like activity was observed. Correlation with clinical findings is needed.
--- NOTE | 2017-08-25 17:59 | CP.PCM.PN ---
<Rupesh Sahu - Last Filed: 08/25/17 20:00> Subjective - Date & Time of Evaluation Date of Evaluation: 08/25/17 Time of Evaluation: 07:20 - Subjective Subjective: PGY1 Medicine Note for Dr. Valle Patient seen and examined at bedside this morning. Patient's cognitive function is much improved today. She is able to answer ROS questions and is orientated to self/place/time today. Denies f/c, n/v, d/c, sob, cp, abdominal pain or headaches. Objective - Vital Signs/Intake and Output Vital Signs (last 24 hours): Temp Pulse Resp BP Pulse Ox 98.5 F 71 20 166/73 H 100 08/25/17 15:58 08/25/17 15:58 08/25/17 15:58 08/25/17 15:58 08/25/17 15:58 Intake and Output: 08/25/17 08/25/17 06:59 18:59 Intake Total 950 Balance 950 - Medications Medications: Current Medications Famotidine (Pepcid) 20 mg PO DAILY [facility] Last Admin: 08/25/17 09:39 Dose: 20 mg Haloperidol (Haldol) 5 mg PO Q6 PRN PRN Reason: Psychosis Hydroxyzine HCl (Atarax) 25 mg PO Q6 PRN PRN Reason: Agitation Last Admin: 08/11/17 17:35 Dose: 25 mg Valproate Sodium 500 mg/ (Sodium Chloride) 105 mls @ 105 mls/hr IVPB Q12H [facility] PRN Reason: Per Protocol Last Admin: 08/25/17 13:48 Dose: 105 mls/hr Dextrose/Sodium Chloride (Dextrose 5%/0.9% Ns 1000 Ml) 1,000 mls @ 100 mls/hr IV .Q10H [facility]ESSICA Last Admin: 08/25/17 10:43 Dose: 100 mls/hr Insulin Aspart (Novolog) 0 unit SC ACHS [facility]ESSICA PRN Reason: Protocol Last Admin: 08/25/17 17:30 Dose: Not Given Insulin Aspart (Novolog) 6 unit SC AC [facility] Last Admin: 08/25/17 17:31 Dose: Not Given Insulin Glargine (Lantus) 16 unit SC HS [facility] Levothyroxine Sodium (Synthroid) 125 mcg PO DAILY@0630 [facility] Last Admin: 08/25/17 06:30 Dose: 125 mcg Ondansetron HCl (Zofran Inj) 4 mg IVP Q6H PRN PRN Reason: Nausea/Vomiting Last Admin: 08/19/17 08:35 Dose: 4 mg Sucralfate (Carafate Oral Susp) 1 gm PO ACBHS [facility] Last Admin: 08/25/17 06:30 Dose: 1 gm Trimethoprim/Sulfamethoxazole (Bactrim Ds Tab) 1 tab PO MWF [facility] - Labs Labs: 08/25/17 07:05 08/25/17 07:05 PT 11.2 SECONDS (9.7-12.2) 08/08/17 10:10 INR 1.0 08/08/17 10:10 APTT 25 SECONDS (21-34) 08/08/17 10:10 - Constitutional Appears: Non-toxic, No Acute Distress - Head Exam Head Exam: ATRAUMATIC, NORMOCEPHALIC - Eye Exam Eye Exam: EOMI, Normal appearance - ENT Exam ENT Exam: Mucous Membranes Moist - Neck Exam Neck Exam: Full ROM - Respiratory Exam Respiratory Exam: Clear to Ausculation Bilateral, NORMAL BREATHING PATTERN. absent: Accessory Muscle Use, Rales, Rhonchi, Wheezes, Respiratory Distress - Cardiovascular Exam Cardiovascular Exam: REGULAR RHYTHM, +S1, +S2 - GI/Abdominal Exam GI & Abdominal Exam: Soft, Normal Bowel Sounds. absent: Distended, Firm, Guarding, Rigid - Extremities Exam Extremities Exam: Normal Inspection. absent: Calf Tenderness, Pedal Edema - Neurological Exam Neurological Exam: Alert, CN II-XII Intact, Oriented x3 Neuro motor strength exam: Left Upper Extremity: 5, Right Upper Extremity: 5, Left Lower Extremity: 5, Right Lower Extremity: 5 Additional comments: Patient is not experiencing tremors/shaking today. - Psychiatric Exam Psychiatric exam: Normal Affect, Normal Mood - Skin Skin Exam: Dry, Normal Color, Warm Assessment and Plan - Assessment and Plan (Free Text) Assessment: Acute Encephalopathy - possible new onset Seizure (08/22) Patient potentially had a seizure over night. CT (08/22) was negative for any acute findings. Brain MRI was ordered for f/u. patient has not had any more events since then Neurology Consulted, Dr. Denney --> Help appreciated; states that all changes in AMS are most likely due to AIDS Brain MRI w/o contrast(08/22) - Mild diffuse/confluent nonspecific white matter changes as described. Findings are of uncertain etiology though could represent sequela of HIV encephalopathy. PML not excluded. See above discussion for additional differential diagnostic considerations. Questionable secretions/opacification of exuberantly aerated mastoid air cells ramyfing into the left petrous apex however the possibility apical petrositis or small the left petrous CT apex cholesterol granuloma. * EEG ordered for morning of 08/23: This is a probably normal EEG. There was increased beta activity noticed intermittently. This could be a normal finding. No focal slowing no seizure like activity was observed. Correlation with clinical findings is needed. * f/u JAGUAR virus * Started on Depakote 500mg IV Q12H * 08/24: patient is more alert/oriented to person place and time AMS 2/2 AIDS Dementia Vs. Opportunistic Infection ID Dr. Meneses --> help appreciated * Continue Diflucan - CT head 08/11 - Negative - MRI 08/12 - unremarkable - LDH - 478 - CD4 - 72 (AIDS confirmed) - f/u Viral Load Must r/o infectious causes * CMV - IgG > 10; IgM <30; Dennotes previous infection, no acute infection * Crypto - <1:2 * RPR - nonreactive * Toxoplasma - IgG < 7.2; IgM < 8 Bandemia/elevated WBC/resolved AIDS * HIV screen Positive, CD4 = 72 * hep panel negative * Will f/u recs for HARRT therapy upon discharge. * Patient will need to follow up with HIV clinic for continuation of HARRT therapy as out patient. * [facility] - Clinic at [address] [place], [place] * [facility] - Clinic at [address] [place], [place] Phone Hyponatremia; resolved * Improving * Discontinued Bactrim due to effect leading to HYPONATREMIA, as per Dr. Meneses and Dr. Wnog recs. * STOPPED medications due to potential s/e of hyponatremia * Zoloft, Trazodone and IV fluids. * Nephro Consult, Dr. Wong - help appreciated, f/u recs * urine sodium 113 * urine osmol 502 * serum osmol 276 * will continue to monitor Dysphagia; resolved Chest CT * particulate matter, possibly food, identified within the esophageal lumen intermixed with gas. * Incidental 6mm nodule within superior right breast. CXR * no acute cardiopulmonary disease Neck soft tissue CT * Abnormal circumferential thickening noted of the cervical esophagus. findings could be due to reflux esophagitis but esophageal carcinoma is not excluded. GI consulted, Dr. 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 Psychiatry, Dr. Henderson --> help appreciated * haloperidol - held due to somnolence * hydroxyzine * zoloft - stopped see above * trazadone 50mg PO HS - stopped see above History of hypothyroidism; stable - TSH: 27.8 - T3: 2.19 - T4: 0.89 * Synthroid 125mcg QD Diabetes hypoglycemia protocol RISS only for now Endo consulted, Dr. Nesha Donaldson; appreciate recs * Started pt on Novolog 12u SC AC and Lantus 24u SC HS which has been held; the patient is not eating HgA1C - 7.1 accuchecks q6h * ISS - high Continue to monitor Urinary Retention; resolved * Bladder scan * if retaining, Insert pink Hyperkalemia; resolved -will monitor Right breast mass - incidental finding on Chest CT; f/u as outpatient * patient will need script for diagnostic mammogram with ultrasound and FNA upon discharge. Prophylactic Care * Heparin 5000u sc q8h - DC'ed due to anemia * SCDs for DVT ppx * Pepcid 20 ivp daily * Fall precautions * 1-1 sitter Patient and patient's are the only people that know of the patient's HIV + status. was informed of AIDS diagnosis. The patient and her do not want anyone else to know of the patient's diagnosis. If patient's sons or mother are in the room, do not discuss patient's diagnosis with them!!! Contact number for patient's (Emiliano Hoang) is wrong in the chart. His cell phone number is [phone]. Case discussed with Dr. Tori Sahu <Drew Valle - Last Filed: 08/26/17 07:19> Objective - Vital Signs/Intake and Output Vital Signs (last 24 hours): Temp Pulse Resp BP Pulse Ox 98.2 F 83 20 163/82 H 100 08/26/17 04:27 08/26/17 04:27 08/26/17 04:27 08/26/17 04:27 08/26/17 04:27 Intake and Output: 08/26/17 08/26/17 06:59 18:59 Intake Total 1070 Balance 1070 - Medications Medications: Current Medications Famotidine (Pepcid) 20 mg PO DAILY [facility] Last Admin: 08/25/17 09:39 Dose: 20 mg Haloperidol (Haldol) 5 mg PO Q6 PRN PRN Reason: Psychosis Valproate Sodium 500 mg/ (Sodium Chloride) 105 mls @ 105 mls/hr IVPB Q12H [facility] PRN Reason: Per Protocol Last Admin: 08/26/17 04:18 Dose: 105 mls/hr Insulin Aspart (Novolog) 0 unit SC ACHS JESSICA PRN Reason: Protocol Last Admin: 08/25/17 17:30 Dose: Not Given Insulin Aspart (Novolog) 6 unit SC AC [facility] Last Admin: 08/25/17 17:30 Dose: 6 unit Insulin Glargine (Lantus) 16 unit SC [facility] Last Admin: 08/25/17 22:29 Dose: 16 units Levothyroxine Sodium (Synthroid) 125 mcg PO DAILY@0630 [facility] Last Admin: 08/26/17 06:21 Dose: 125 mcg Ondansetron HCl (Zofran Inj) 4 mg IVP Q6H PRN PRN Reason: Nausea/Vomiting Last Admin: 08/19/17 08:35 Dose: 4 mg Sucralfate (Carafate Oral Susp) 1 gm PO ACS [facility] Last Admin: 08/26/17 06:30 Dose: 1 gm Trimethoprim/Sulfamethoxazole (Bactrim Ds Tab) 1 tab PO MWF [facility] - Labs Labs: 08/26/17 06:23 08/25/17 07:05 PT 11.2 SECONDS (9.7-12.2) 08/08/17 10:10 INR 1.0 08/08/17 10:10 APTT 25 SECONDS (21-34) 08/08/17 10:10 Attending/Attestation - Attestation I have personally seen and examined this patient.: Yes I have fully participated in the care of the patient.: Yes I have reviewed all pertinent clinical information, including history, physical exam and plan: Yes Notes (Text): Medical Attending: Patient was seen and examined by me. I had to speak at extended length with the resident and also the patient to get back up to speed with the events of the previous week. Her CD4 cell count appeared very low. She does have AIDS. From what the residents explain she had a very rough week last week with episodes of hallucination as well as episodes of electrolyte abnomalities including hyponatremia - probably from bactrim. When I saw and examined the patient - she did remember who I was however appeared somulent thank you Drew Valle
--- NOTE | 2017-08-25 20:27 | PN ---
The patient was sleeping and her was at that bedside, however, this person does not know that she has AIDS and it is end-stage AIDS as I saw. Her numbers came back, and she is 1.8 today, probably has pancytopenia secondary to her advanced AIDS. She has been tolerating food now better, but her HIV disease is pretty extensive and absolute CD4 count is 72 and repeat was 110, so she is less than 200, but she has AIDS for all particle purposes and has pancytopenia. The Bactrim is not the choice for her, maybe we will make it every other day. She also had seizure and is getting seizure medication, maybe she has PML. I am waiting for the brain MRI report, which showed nonspecific white matter change findings of uncertain origin, though could represent sequelae of HIV encephalopathy, PML not excluded. Question also arising mastoid air cells, possible apical petrositis or small left petrous apex cholesterol granuloma. 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 We will follow. Jemal Meneses MD
[2017-08-25] MEDS ORDERED: (Lantus) Insulin Glargine, Recombinant SC SCH (22:00)
[2017-08-26] MEDS: Valproate 500 MG in Sodium Chloride 0.9% 100 ML IVPB SCH ×2 (04:18→13:39)
[2017-08-26] MEDS: Levothyroxine 125 MCG TAB PO SCH (06:21)
[2017-08-26] MEDS: Sucralfate 1 gm/10 ml Oral Susp UD PO SCH ×2 (06:30→22:22)
[2017-08-26 06:49] LABS: BASO % 0.2 % (0.0-2.0); EOS # 0.1 K/uL (0.0-0.7); EOS % 0.8 % (0.0-4.0); HEMATOCRIT 21.3 % (34.0-47.0); LYMPH # 0.5 K/uL (1.0-4.3); LYMPH % 3.5 % (20.0-40.0); MEAN CELL VOLUME 89.5 fL (81.0-99.0); MEAN CORPUSCULAR HEMOGLOBIN 29.9 pg (27.0-31.0); MEAN CORPUSCULAR HGB CONC 33.4 g/dL (33.0-37.0); MEAN PLATELET VOLUME 7.8 fL (7.2-11.7); MONO # 0.4 K/uL (0.0-0.8); MONO % 2.5 % (0.0-10.0); PLATELET COUNT 96 K/uL (130-400); WHITE BLOOD COUNT 15.7 K/uL (4.8-10.8)
[2017-08-26 07:39] LABS: CHLORIDE 108 mmol/L (98-107); POTASSIUM 3.2 mmol/L (3.6-5.2); SODIUM 142 mmol/L (132-148)
[2017-08-26 07:41] LABS: GFR AFRICAN-AMERICAN > 60
[2017-08-26 07:42] LABS: ALKALINE PHOSPHATASE 104 U/L (38-126); ALT/SGPT 18 U/L (9-52); AST/SGOT 20 U/L (14-36); BILIRUBIN,TOTAL 0.3 mg/dL (0.2-1.3); BLOOD UREA NITROGEN 4 mg/dL (7-17); CARBON DIOXIDE 22 mmol/L (22-30); GLUCOSE,RANDOM 90 mg/dL (65-105); TOTAL PROTEIN 5.6 g/dL (6.3-8.3)
--- NOTE | 2017-08-26 07:52 | CP.PCM.PN ---
<Rupesh Sahu - Last Filed: 08/26/17 15:34> Subjective - Date & Time of Evaluation Date of Evaluation: 08/26/17 Time of Evaluation: 07:49 - Subjective Subjective: PGY1 Medicine Note for Dr. Valle Patient seen and examined at bedside this morning. Patient was slow to answer and just would not respond to some questions, ie what year is it. Patient is not currently shaking is resting comfortably in bed. Denies any complaints at this time. Objective - Vital Signs/Intake and Output Vital Signs (last 24 hours): Temp Pulse Resp BP Pulse Ox 98.2 F 83 20 163/82 H 100 08/26/17 04:27 08/26/17 04:27 08/26/17 04:27 08/26/17 04:27 08/26/17 04:27 Intake and Output: 08/26/17 08/26/17 06:59 18:59 Intake Total 1070 Balance 1070 - Medications Medications: Current Medications Famotidine (Pepcid) 20 mg PO DAILY [facility] Last Admin: 08/25/17 09:39 Dose: 20 mg Haloperidol (Haldol) 5 mg PO Q6 PRN PRN Reason: Psychosis Valproate Sodium 500 mg/ (Sodium Chloride) 105 mls @ 105 mls/hr IVPB Q12H JESSICA PRN Reason: Per Protocol Last Admin: 08/26/17 04:18 Dose: 105 mls/hr Insulin Aspart (Novolog) 0 unit SC ACHS JESSICA PRN Reason: Protocol Last Admin: 08/25/17 17:30 Dose: Not Given Insulin Aspart (Novolog) 6 unit SC AC [facility] Last Admin: 08/25/17 17:30 Dose: 6 unit Insulin Glargine (Lantus) 16 unit SC HS [facility] Last Admin: 08/25/17 22:29 Dose: 16 units Levothyroxine Sodium (Synthroid) 125 mcg PO DAILY@0630 [facility] Last Admin: 08/26/17 06:21 Dose: 125 mcg Ondansetron HCl (Zofran Inj) 4 mg IVP Q6H PRN PRN Reason: Nausea/Vomiting Last Admin: 08/19/17 08:35 Dose: 4 mg Sucralfate (Carafate Oral Susp) 1 gm PO ACBHS [facility] Last Admin: 08/26/17 06:30 Dose: 1 gm Trimethoprim/Sulfamethoxazole (Bactrim Ds Tab) 1 tab PO MWF [facility] - Labs Labs: 08/26/17 06:23 08/25/17 07:05 PT 11.2 SECONDS (9.7-12.2) 08/08/17 10:10 INR 1.0 08/08/17 10:10 APTT 25 SECONDS (21-34) 08/08/17 10:10 - Constitutional Appears: Non-toxic, No Acute Distress - Head Exam Head Exam: ATRAUMATIC, NORMOCEPHALIC - Eye Exam Eye Exam: EOMI, Normal appearance. absent: Scleral icterus - ENT Exam ENT Exam: Mucous Membranes Moist - Neck Exam Neck Exam: absent: Tenderness - Respiratory Exam Respiratory Exam: Clear to Ausculation Bilateral, NORMAL BREATHING PATTERN. absent: Accessory Muscle Use, Rhonchi, Wheezes, Respiratory Distress - Cardiovascular Exam Cardiovascular Exam: REGULAR RHYTHM, +S1, +S2 - GI/Abdominal Exam GI & Abdominal Exam: Soft, Normal Bowel Sounds. absent: Distended, Firm, Guarding, Rigid, Tenderness - Extremities Exam Extremities Exam: absent: Calf Tenderness, Pedal Edema - Neurological Exam Neurological Exam: Alert, Awake. absent: Oriented x3 (refused to answer questions, stated she was in the hospital but would not answer where or year. ) Additional comments: Patient is not shaking today. - Psychiatric Exam Psychiatric exam: Normal Affect, Normal Mood - Skin Skin Exam: Dry, Normal Color, Warm Assessment and Plan - Assessment and Plan (Free Text) Assessment: Acute Encephalopathy - possible new onset Seizure (08/22) Patient potentially had a seizure over night. CT (08/22) was negative for any acute findings. Brain MRI was ordered for f/u. patient has not had any more events since then Neurology Consulted, Dr. Denney --> Help appreciated; states that all changes in AMS are most likely due to AIDS Brain MRI w/o contrast(08/22) - Mild diffuse/confluent nonspecific white matter changes as described. Findings are of uncertain etiology though could represent sequela of HIV encephalopathy. PML not excluded. See above discussion for additional differential diagnostic considerations. Questionable secretions/opacification of exuberantly aerated mastoid air cells ramyfing into the left petrous apex however the possibility apical petrositis or small the left petrous CT apex cholesterol granuloma. * EEG ordered for morning of 9/30: This is a probably normal EEG. There was increased beta activity noticed intermittently. This could be a normal finding. No focal slowing no seizure like activity was observed. Correlation with clinical findings is needed. * f/u JAGUAR virus and HLA-B57:01 sensitivity, awaiting results. * Started on Depakote 500mg IV Q12H * 08/24: patient is more alert/oriented to person place and time AMS 12/26 AIDS Dementia Vs. Opportunistic Infection ID Dr. Meneses --> help appreciated * Continue Diflucan - CT head 08/11 - Negative - MRI 08/12 - unremarkable - LDH - 478 - CD4 - 72 (AIDS confirmed) -->repeat 110 - f/u Viral Load Must r/o infectious causes * CMV - IgG > 10; IgM <30; Dennotes previous infection, no acute infection * Crypto - <1:2 * RPR - nonreactive * Toxoplasma - IgG < 7.2; IgM < 8 Bandemia/elevated WBC/resolved AIDS * Dr. Meneses recs * Bactrim DS 1 tab PO M/W/F * Atripla * Neupogen given 08/25 * HIV screen Positive, CD4 = 72, repeat CD4 = 110 * hep panel negative * Will f/u recs for HARRT therapy upon discharge. * Patient will need to follow up with HIV clinic for continuation of HARRT therapy as out patient. * [facility] - Clinic at [address] [place], [place] * [facility] - Clinic at [address] [place], [place] Phone Hyponatremia; resolved * Improving * Discontinued Bactrim due to effect leading to HYPONATREMIA, as per Dr. Meneses and Dr. Wong recs. * STOPPED medications due to potential s/e of hyponatremia * Zoloft, Trazodone and IV fluids. * Nephro Consult, Dr. Wong - help appreciated, f/u recs * urine sodium 113 --> 43 * urine osmol 502 --> 176 * serum osmol 276 * will continue to monitor Dysphagia; resolved Chest CT * particulate matter, possibly food, identified within the esophageal lumen intermixed with gas. * Incidental 6mm nodule within superior right breast. CXR * no acute cardiopulmonary disease Neck soft tissue CT * Abnormal circumferential thickening noted of the cervical esophagus. findings could be due to reflux esophagitis but esophageal carcinoma is not excluded. GI consulted, Dr. 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 Psychiatry, Dr. Henderson --> help appreciated * haloperidol - held due to somnolence * hydroxyzine * zoloft - stopped see above * trazadone 50mg PO HS - stopped see above History of hypothyroidism; stable - TSH: 27.8 - T3: 2.19 - T4: 0.89 * Synthroid 125mcg QD Diabetes hypoglycemia protocol RISS only for now Endo consulted, Dr. Nesha Donaldson; appreciate recs * Lantus changed to 16 units HS * Novolog 6units TIDAC * ISS low HgA1C - 7.1 accuchecks q6h Continue to monitor Urinary Retention; resolved * Bladder scan * if retaining, Insert pink Hyperkalemia; resolved -will monitor Right breast mass - incidental finding on Chest CT; f/u as outpatient * patient will need script for diagnostic mammogram with ultrasound and FNA upon discharge. Prophylactic Care * Heparin 5000u sc q8h - DC'ed due to anemia * SCDs for DVT ppx * Pepcid 20 ivp daily * Fall precautions * 1-1 sitter Patient and patient's are the only people that know of the patient's HIV + status. was informed of AIDS diagnosis. The patient and her do not want anyone else to know of the patient's diagnosis. If patient's sons or mother are in the room, do not discuss patient's diagnosis with them!!! Contact number for patient's (Emiliano Hoang) is wrong in the chart. His cell phone number is [phone]. Case discussed with Dr. Tori Sahu PGY1 <Drew Valle - Last Filed: 08/26/17 16:10> Objective - Vital Signs/Intake and Output Vital Signs (last 24 hours): Temp Pulse Resp BP Pulse Ox 98.6 F 74 18 153/80 H 100 08/26/17 08:10 08/26/17 08:10 08/26/17 08:10 08/26/17 08:10 08/26/17 08:10 Intake and Output: 08/26/17 08/26/17 06:59 18:59 Intake Total 1070 Balance 1070 - Medications Medications: Current Medications Famotidine (Pepcid) 20 mg PO DAILY [facility] Last Admin: 08/26/17 10:31 Dose: 20 mg Haloperidol (Haldol) 5 mg PO Q6 PRN PRN Reason: Psychosis Valproate Sodium 500 mg/ (Sodium Chloride) 105 mls @ 105 mls/hr IVPB Q12H [facility] PRN Reason: Per Protocol Last Admin: 08/26/17 13:39 Dose: 105 mls/hr Insulin Aspart (Novolog) [address] [facility] PRN Reason: Protocol Last Admin: 08/26/17 12:44 Dose: Not Given Insulin Aspart (Novolog) 6 unit SC AC [facility] Last Admin: 08/26/17 12:44 Dose: Not Given Insulin Glargine (Lantus) 12 unit SC [facility] Levothyroxine Sodium (Synthroid) 125 mcg PO DAILY@0630 [facility] Last Admin: 08/26/17 06:21 Dose: 125 mcg Lorazepam (Ativan) 2 mg IVP PRN PRN PRN Reason: shaking, nervousness Last Admin: 08/26/17 10:53 Dose: 2 mg Ondansetron HCl (Zofran Inj) 4 mg IVP Q6H PRN PRN Reason: Nausea/Vomiting Last Admin: 08/19/17 08:35 Dose: 4 mg Sucralfate (Carafate Oral Susp) 1 gm PO ACS [facility] Last Admin: 08/26/17 06:30 Dose: 1 gm Trimethoprim/Sulfamethoxazole (Bactrim Ds Tab) 1 tab PO [facility] - Labs Labs: 08/26/17 06:23 08/26/17 06:23 PT 11.2 SECONDS (9.7-12.2) 08/08/17 10:10 INR 1.0 08/08/17 10:10 APTT 25 SECONDS (21-34) 08/08/17 10:10 Attending/Attestation - Attestation I have personally seen and examined this patient.: Yes I have fully participated in the care of the patient.: Yes I have reviewed all pertinent clinical information, including history, physical exam and plan: Yes Notes (Text): 08/26/17 16:09 Medical attending: Patient was seen and examined by me, agrees the above note by medical device assembler. At this time were still waiting on the further serologies to return including JAGUAR virus. As documented previously patient had MRI which suggested the patient may or may not have PML she also had his CD4 cell count that was less than the 80. We saw the patient today she was awake, she was alert, she knew where she was at occasionally she would answer questions. She is eating quite well. And she tells us that she's been able to ambulate as well. However I should point out I have not actually seen her ambulate in the past several days myself in person. At this time were still waiting on the JAGUAR virus studies to return as well as She remains on IV Depakote for seizure prophylaxis As mentioned previously the patient does not want any members of her family to be where of her HIV/AIDS status. Thank you very much, Drew Valle
[2017-08-26 08:12] LABS: EOSINOPHIL 2 % (0-4); NEUTROPHIL 82 % (50-75); NUCLEATED RED BLOOD CELL 1 % (0-0); TOTAL CELLS COUNTED 100
[2017-08-26] MEDS: (Novolog) Insulin Aspart, Recombinant 100 u/ml 10 ml vial SC SCH ×7 (08:15→22:21)
[2017-08-26 08:16] LABS: ALB/GLOB RATIO 0.8 (1.0-2.1)
[2017-08-26] MEDS: Dextrose 5%/0.9% NS 1,000 ML IV SCH (08:47)
--- NOTE | 2017-08-26 09:00 | CP.PCM.PN ---
Subjective - Date & Time of Evaluation Date of Evaluation: 08/26/17 Time of Evaluation: 08:57 - Subjective Subjective: Ms. Morel was seen and examined at the bedside. She remains alert, responsive to all stimuli. She is able to follow commands. There was no untoward events overnight. Objective - Vital Signs/Intake and Output Vital Signs (last 24 hours): Temp Pulse Resp BP Pulse Ox 98.2 F 83 20 163/82 H 100 08/26/17 04:27 08/26/17 04:27 08/26/17 04:27 08/26/17 04:27 08/26/17 04:27 Intake and Output: 08/26/17 08/26/17 06:59 18:59 Intake Total 1070 Balance 1070 - Medications Medications: Current Medications Famotidine (Pepcid) 20 mg PO DAILY [facility] Last Admin: 08/25/17 09:39 Dose: 20 mg Haloperidol (Haldol) 5 mg PO Q6 PRN PRN Reason: Psychosis Valproate Sodium 500 mg/ (Sodium Chloride) 105 mls @ 105 mls/hr IVPB Q12H [facility] PRN Reason: Per Protocol Last Admin: 08/26/17 04:18 Dose: 105 mls/hr Insulin Aspart (Novolog) 0 unit SC ACHS [facility] PRN Reason: Protocol Last Admin: 08/26/17 08:15 Dose: Not Given Insulin Aspart (Novolog) 6 unit SC AC [facility] Last Admin: 08/26/17 08:15 Dose: Not Given Insulin Glargine (Lantus) 16 unit SC HS [facility] Last Admin: 08/25/17 22:29 Dose: 16 units Levothyroxine Sodium (Synthroid) 125 mcg PO DAILY@0630 [facility] Last Admin: 08/26/17 06:21 Dose: 125 mcg Ondansetron HCl (Zofran Inj) 4 mg IVP Q6H PRN PRN Reason: Nausea/Vomiting Last Admin: 08/19/17 08:35 Dose: 4 mg Sucralfate (Carafate Oral Susp) 1 gm PO ACBHS [facility] Last Admin: 08/26/17 06:30 Dose: 1 gm Trimethoprim/Sulfamethoxazole (Bactrim Ds Tab) 1 tab PO MWF [facility] - Labs Labs: 08/26/17 06:23 08/26/17 06:23 PT 11.2 SECONDS (9.7-12.2) 08/08/17 10:10 INR 1.0 08/08/17 10:10 APTT 25 SECONDS (21-34) 08/08/17 10:10 - Constitutional Appears: Cachectic - Head Exam Head Exam: ATRAUMATIC, NORMAL INSPECTION, NORMOCEPHALIC - Neurological Exam Neurological Exam: Alert, Awake, CN II-XII Intact, Oriented x3 Neuro motor strength exam: Left Upper Extremity: 5, Right Upper Extremity: 5, Left Lower Extremity: 5, Right Lower Extremity: 5 Additional comments: Neurological improved from previous examination. Assessment and Plan (1) Encephalopathy acute Assessment & Plan: Case discussed with Dr. Denney, continue current medical, physical, occupation therapies. Status: Acute
[2017-08-26] MEDS ORDERED: Potassium Chloride 20 mEq ER Tab PO ONE ×2 (12:30→14:30)
[2017-08-26 13:52] LABS: JC VIRUS DNA URINE QUANT <500 copies/mL (<500)
--- NOTE | 2017-08-26 18:49 | PN ---
ENDO FOLLOWUP NOTE LOCATION: Room 657 This is a 57-year-old female with recent uncontrolled type 1, insulin dependent diabetes, now being followed closely for metabolic management. Her glycemic levels are fluctuating, but much improved at this time and the latest glucose levels have ranged from 101 to 153 mg/dL. Her latest chemistries shows a BUN of 4, sodium 142, potassium 3.2, chloride 108, CO2 of 22, glucose 90, and creatinine 1.0, so at this time, we will continue the same basal and bolus insulin regimen to allow dose equilibration and keep her on the NovoLog, given her 6 units subcu t.i.d. before meals as ordered. We will lower the Lantus to 12 units subcu at bedtime daily to start tonight. We will titrate incrementally as indicated to optimize metabolic control. We will obtain serial chemistries and supplement accordingly as needed. We will follow and advise accordingly. Nesha Donaldson MD
[2017-08-26] MEDS ORDERED: (Lantus) Insulin Glargine, Recombinant SC SCH (22:00)
[2017-08-27] MEDS: Valproate 500 MG in Sodium Chloride 0.9% 100 ML IVPB SCH ×2 (02:26→14:00)
[2017-08-27] MEDS: Sucralfate 1 gm/10 ml Oral Susp UD PO SCH ×2 (06:34→21:37)
[2017-08-27] MEDS: Levothyroxine 125 MCG TAB PO SCH (06:34)
--- NOTE | 2017-08-27 07:09 | CP.PCM.PN ---
<Rupesh Sahu - Last Filed: 08/27/17 14:17> Subjective - Date & Time of Evaluation Date of Evaluation: 08/27/17 Time of Evaluation: 07:00 - Subjective Subjective: PGY1 medicine note for Dr. Valle Patient seen and examined overnight. Patient was resting peacefully in her bed. She was awoken from sleep. Patient was very slow to answer any questions, if she decided to answer them at all. Her mental status appears to be worse today, compared to yesterday. She stated she did not have any complaints this morning. Objective - Vital Signs/Intake and Output Vital Signs (last 24 hours): Temp Pulse Resp BP Pulse Ox 98.1 F 84 20 150/83 99 08/27/17 04:00 08/27/17 04:00 08/27/17 04:00 08/27/17 04:00 08/27/17 00:31 Intake and Output: 08/27/17 08/27/17 06:59 18:59 Intake Total 1733 Output Total 850 Balance 883 - Medications Medications: Current Medications Efavirenz/Emtricitabine/Tenofovir (Atripla 600 Mg-200 Mg-300 Mg) 1 tab PO DAILY [facility] Famotidine (Pepcid) 20 mg PO DAILY [facility] Last Admin: 08/26/17 10:31 Dose: 20 mg Haloperidol (Haldol) 5 mg PO Q6 PRN PRN Reason: Psychosis Valproate Sodium 500 mg/ (Sodium Chloride) 105 mls @ 105 mls/hr IVPB Q12H [facility] PRN Reason: Per Protocol Last Admin: 08/27/17 02:26 Dose: 105 mls/hr Insulin Aspart (Novolog) 0 unit SC ACHS [facility] PRN Reason: Protocol Last Admin: 08/26/17 22:21 Dose: Not Given Insulin Aspart (Novolog) 6 unit SC AC [facility] Last Admin: 08/26/17 18:44 Dose: Not Given Insulin Glargine (Lantus) 12 unit SC HS [facility] Last Admin: 08/26/17 22:22 Dose: Not Given Levothyroxine Sodium (Synthroid) 125 mcg PO DAILY@0630 [facility] Last Admin: 08/27/17 06:34 Dose: 125 mcg Lorazepam (Ativan) 2 mg IVP PRN PRN PRN Reason: shaking, nervousness Ondansetron HCl (Zofran Inj) 4 mg IVP Q6H PRN PRN Reason: Nausea/Vomiting Last Admin: 08/19/17 08:35 Dose: 4 mg Sucralfate (Carafate Oral Susp) 1 gm PO ACBHS [facility] Last Admin: 08/27/17 06:34 Dose: 1 gm Trimethoprim/Sulfamethoxazole (Bactrim Ds Tab) 1 tab PO MWF [facility] - Labs Labs: 08/26/17 06:23 08/26/17 06:23 PT 11.2 SECONDS (9.7-12.2) 08/08/17 10:10 INR 1.0 08/08/17 10:10 APTT 25 SECONDS (21-34) 08/08/17 10:10 - Constitutional Appears: Non-toxic, No Acute Distress - Head Exam Head Exam: ATRAUMATIC, NORMOCEPHALIC - Eye Exam Eye Exam: EOMI, Normal appearance. absent: Scleral icterus - ENT Exam ENT Exam: Mucous Membranes Moist - Respiratory Exam Respiratory Exam: Clear to Ausculation Bilateral, NORMAL BREATHING PATTERN. absent: Accessory Muscle Use, Rales, Rhonchi, Wheezes, Respiratory Distress - Cardiovascular Exam Cardiovascular Exam: REGULAR RHYTHM, +S1, +S2 - GI/Abdominal Exam GI & Abdominal Exam: Soft, Normal Bowel Sounds. absent: Distended, Firm, Guarding, Rigid, Tenderness - Extremities Exam Extremities Exam: Normal Inspection. absent: Calf Tenderness, Pedal Edema - Neurological Exam Neurological Exam: Alert, Altered (very slow to answer questions), Awake. absent: Oriented x3 (would not answer questions but would respond to her hearing her name. ) - Psychiatric Exam Psychiatric exam: Flat Affect - Skin Skin Exam: Dry, Normal Color, Warm Assessment and Plan - Assessment and Plan (Free Text) Assessment: Acute Encephalopathy - possible new onset Seizure (08/22) Patient's mental status appears decreased today. She is not answering many questions and appears to have a flat affect. Will continue to monitor. Patient potentially had a seizure over night. CT (08/22) was negative for any acute findings. Brain MRI was ordered for f/u. patient has not had any more events since then Neurology Consulted, Dr. Denney --> Help appreciated; states that all changes in AMS are most likely due to AIDS Brain MRI w/o contrast(08/22) - Mild diffuse/confluent nonspecific white matter changes as described. Findings are of uncertain etiology though could represent sequela of HIV encephalopathy. PML not excluded. See above discussion for additional differential diagnostic considerations. Questionable secretions/opacification of exuberantly aerated mastoid air cells ramyfing into the left petrous apex however the possibility apical petrositis or small the left petrous CT apex cholesterol granuloma. * EEG ordered for morning of 08/23: This is a probably normal EEG. There was increased beta activity noticed intermittently. This could be a normal finding. No focal slowing no seizure like activity was observed. Correlation with clinical findings is needed. * JAGUAR virus <500 = negative * HLA-B57:01 sensitivity, awaiting results. * Started on Depakote 500mg IV Q12H * 08/24: patient is more alert/oriented to person place and time AMS 12/26 AIDS Dementia Vs. Opportunistic Infection ID Dr. Meneses --> help appreciated * Continue Diflucan - CT head 08/11 - Negative - MRI 08/12 - unremarkable - LDH - 478 - CD4 - 72 (AIDS confirmed) -->repeat 110 - HIV-1 RNA Qnt (RT-PCR) - 5.80 high Must r/o infectious causes * CMV - IgG > 10; IgM <30; Dennotes previous infection, no acute infection * Crypto - <1:2 * RPR - nonreactive * Toxoplasma - IgG < 7.2; IgM < 8 Bandemia/elevated WBC/resolved AIDS * Dr. Meneses recs * Bactrim DS 1 tab PO M/W/F * Atripla [id number](Efavirenz/Emtricitabine/Teno) 1 tab PO daily - script written and placed in chart for pt's to bean picker and fill, so when patient is discharged to [facility], he will be able to take her medication with her, as [facility] does not usually provide HARRT medications. Dr. Sahu discussed with pt's , Emiliano Hoang, on the phone. He stated he understands and will bean picker prescription to fill it either today or tomorrow (08/28). * Neupogen given 08/25 * HIV screen Positive, CD4 = 72, repeat CD4 = 110 * hep panel negative * Will f/u recs for HARRT therapy upon discharge. * Patient will need to follow up with HIV clinic for continuation of HARRT therapy as out patient. * [facility] - Clinic at [address], [place], [place] * [facility] - Clinic at [address], [place] Phone Hyponatremia; resolved * STOPPED medications due to potential s/e of hyponatremia * Zoloft, Trazodone and IV fluids. * Nephro Consult, Dr. Wong - help appreciated, f/u recs * urine sodium 113 --> 43 * urine osmol 502 --> 176 * serum osmol 276 * will continue to monitor Dysphagia; resolved Chest CT * particulate matter, possibly food, identified within the esophageal lumen intermixed with gas. * Incidental 6mm nodule within superior right breast. CXR * no acute cardiopulmonary disease Neck soft tissue CT * Abnormal circumferential thickening noted of the cervical esophagus. findings could be due to reflux esophagitis but esophageal carcinoma is not excluded. GI consulted, Dr. 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 Psychiatry, Dr. Henderson --> help appreciated * haloperidol - held due to somnolence * hydroxyzine * zoloft - stopped see above * trazadone 50mg PO HS - stopped see above History of hypothyroidism; stable - TSH: 27.8 - T3: 2.19 - T4: 0.89 * Synthroid 125mcg QD Diabetes hypoglycemia protocol RISS only for now Endo consulted, Dr. Nesha Donaldson; appreciate recs * Lantus changed to 16 units HS * Novolog 6units TIDAC * ISS low HgA1C - 7.1 accuchecks q6h Continue to monitor Urinary Retention; resolved * Bladder scan * if retaining, Insert pink Hyperkalemia; resolved -will monitor Right breast mass - incidental finding on Chest CT; f/u as outpatient * patient will need script for diagnostic mammogram with ultrasound and FNA upon discharge. Prophylactic Care * Heparin 5000u sc q8h - DC'ed due to anemia * SCDs for DVT ppx * Pepcid 20 ivp daily * Fall precautions * 1-1 sitter Atripla prescription written and placed in chart for pt's to bean picker and fill. This was done so when patient is discharged to [facility], he will be able to take her medication with her, as [facility] does not usually provide HARRT medications. Dr. Sahu discussed with pt's , Emiliano Hoang, on the phone. He stated he understands and will bean picker prescription to fill it either today(08/27 ) or tomorrow (08/28). Patient and patient's are the only people that know of the patient's HIV + status. was informed of AIDS diagnosis. The patient and her do not want anyone else to know of the patient's diagnosis. If patient's sons or mother are in the room, do not discuss patient's diagnosis with them!!! Contact number for patient's (Emiliano Hoang) is wrong in the chart. His cell phone number is [phone]. Case discussed with Dr. Tori Sahu PGY1 <Drew Valle H - Last Filed: 08/28/17 07:41> Objective - Vital Signs/Intake and Output Vital Signs (last 24 hours): Temp Pulse Resp BP Pulse Ox 98.8 F 90 20 158/87 H 100 08/28/17 04:39 08/28/17 06:00 08/28/17 06:00 08/28/17 06:00 08/28/17 06:00 Intake and Output: 08/28/17 08/28/17 06:59 18:59 Intake Total 700 400 Output Total 800 Balance -100 400 - Medications Medications: Current Medications Efavirenz/Emtricitabine/Tenofovir (Atripla 600 Mg-200 Mg-300 Mg) 1 tab PO DAILY [facility] Last Admin: 08/27/17 10:50 Dose: 1 tab Famotidine (Pepcid) 20 mg PO DAILY [facility] Last Admin: 08/27/17 10:50 Dose: 20 mg Haloperidol (Haldol) 5 mg PO Q6 PRN PRN Reason: Psychosis Valproate Sodium 500 mg/ (Sodium Chloride) 105 mls @ 105 mls/hr IVPB Q12H [facility] PRN Reason: Per Protocol Last Admin: 08/28/17 01:54 Dose: 105 mls/hr Dextrose/Sodium Chloride (Dextrose 5%/0.9% Ns 1000 Ml) 1,000 mls @ 50 mls/hr IV .Q20H [facility] Last Admin: 08/27/17 17:00 Dose: 50 mls/hr Insulin Aspart (Novolog) 0 unit SC ACHS [facility] PRN Reason: Protocol Last Admin: 08/28/17 07:21 Dose: Not Given Insulin Aspart (Novolog) 6 unit SC AC [facility] Last Admin: 08/28/17 07:21 Dose: Not Given Insulin Glargine (Lantus) 8 unit SC HS [facility] Last Admin: 08/27/17 21:36 Dose: Not Given Levothyroxine Sodium (Synthroid) 125 mcg PO DAILY@0630 [facility] Last Admin: 08/28/17 05:49 Dose: 125 mcg Ondansetron HCl (Zofran Inj) 4 mg IVP Q6H PRN PRN Reason: Nausea/Vomiting Last Admin: 08/27/17 14:44 Dose: 4 mg Sucralfate (Carafate Oral Susp) 1 gm PO ACBHS [facility] Last Admin: 08/27/17 21:37 Dose: 1 gm Trimethoprim/Sulfamethoxazole (Bactrim Ds Tab) 1 tab PO MWF [facility] Last Admin: 08/27/17 10:50 Dose: 1 tab - Labs Labs: 08/27/17 09:15 08/27/17 08:16 PT 11.2 SECONDS (9.7-12.2) 08/08/17 10:10 INR 1.0 08/08/17 10:10 APTT 25 SECONDS (21-34) 08/08/17 10:10 Attending/Attestation - Attestation I have personally seen and examined this patient.: Yes I have fully participated in the care of the patient.: Yes I have reviewed all pertinent clinical information, including history, physical exam and plan: Yes Notes (Text): Medical Attending: Patient was seen and examined by me as well. As mentioned in the above note by the resident, she was not very alert and interactive today as in previous days. As mentioned previously her appettite has been poor recently. The JAGUAR virus serologies have returned and are negative. We are still pending HLA serologies. Patient is now on Atripla for her HIV/AIDS thank you Drew Valle
[2017-08-27] MEDS: (Novolog) Insulin Aspart, Recombinant 100 u/ml 10 ml vial SC SCH ×7 (07:24→21:24)
[2017-08-27 08:37] LABS: CHLORIDE 109 mmol/L (98-107)
[2017-08-27 08:38] LABS: POTASSIUM 3.6 mmol/L (3.6-5.2); SODIUM 143 mmol/L (132-148)
[2017-08-27 08:40] LABS: CARBON DIOXIDE 21 mmol/L (22-30); GFR AFRICAN-AMERICAN > 60
[2017-08-27 08:41] LABS: ALB/GLOB RATIO 0.7 (1.0-2.1); ALKALINE PHOSPHATASE 135 U/L (38-126); ALT/SGPT 16 U/L (9-52); AST/SGOT 24 U/L (14-36); BILIRUBIN,TOTAL 0.7 mg/dL (0.2-1.3); BLOOD UREA NITROGEN 3 mg/dL (7-17); CALCIUM 8.5 mg/dl (8.6-10.4); GLUCOSE,RANDOM 104 mg/dL (65-105); TOTAL PROTEIN 7.1 g/dL (6.3-8.3)
[2017-08-27 09:21] LABS: EOS % 0.5 % (0.0-4.0); LYMPH # 1.1 K/uL (1.0-4.3); MEAN CORPUSCULAR HEMOGLOBIN 29.8 pg (27.0-31.0); MONO # 0.9 K/uL (0.0-0.8); MONO % 2.9 % (0.0-10.0)
[2017-08-27 09:27] LABS: BASO # 0.1 K/uL (0.0-0.2); BASO % 0.4 % (0.0-2.0); EOS # 0.2 K/uL (0.0-0.7); HEMATOCRIT 37.2 % (34.0-47.0); LYMPH % 3.5 % (20.0-40.0); MEAN CORPUSCULAR HGB CONC 34.2 g/dL (33.0-37.0); MEAN PLATELET VOLUME 8.2 fL (7.2-11.7); RED CELL DISTRIBUTION WIDTH 15.6 % (11.5-14.5)
[2017-08-27 09:29] LABS: PLATELET COUNT 70 K/uL (130-400); WHITE BLOOD COUNT 30.9 K/uL (4.8-10.8)
[2017-08-27 09:53] LABS: NEUTROPHIL 58 % (50-75); TOTAL CELLS COUNTED 100
[2017-08-27] MEDS: Tmp-Smz 800 mg-160 mg DS Tab PO SCH (10:50)
[2017-08-27] MEDS: Efavirenz/Emtricitabine/Teno 1 TAB PO SCH (10:50)
--- NOTE | 2017-08-27 13:18 | PN ---
ENDOCRINOLOGY FOLLOWUP NOTE LOCATION: In room #657. This is a 57-year-old female of glycemic fluctuations related to the variable and suboptimal oral intake and also withholding of the insulin scheduled therapy with hyperglycemic accelerations as noted today. Her latest glucose levels have ranged from 64 to 76 and 310 mg/dL. The latest chemistry showed the BUN of 3, sodium 143, potassium 3.6, chloride 109, CO2 of 21, glucose 104, and creatinine 0.8, so at this time, we will modify once again her basal and bolus insulin regimen and lower the length to 8 units subQ at bedtime daily to start tonight. We will also continue the NovoLog given at 6 units subQ t.i.d. before meals as ordered. Instructions were given to the nurse and staff to not to withhold the insulin regimen scheduled for the meal even if the glucose levels are below 100. Detailed instruction have been given to give the patient only half the dose of a NovoLog before meals if the glucose level is below 100, and so otherwise, this insulin should be given as scheduled t.i.d. before meals as ordered. We will obtain serial chemistry and supplement accordingly as needed. We will follow up with you. Nesha Donaldson MD
--- NOTE | 2017-08-27 13:23 | CP.PCM.PN ---
Subjective - Date & Time of Evaluation Date of Evaluation: 08/27/17 Time of Evaluation: 13:20 - Subjective Subjective: Ms. Morel was seen and examined at the bedside. She is slow to respond, but able to follow simple commands. She claims of feeling very sleepy, but able to hear me. She denies any pain, dizziness,but claims of having poor appetite. She is on a telesitter. She is not in any kind of distress. There is no untoward events overnight. Objective - Vital Signs/Intake and Output Vital Signs (last 24 hours): Temp Pulse Resp BP Pulse Ox 97.5 F L 81 20 162/88 H 100 08/27/17 07:57 08/27/17 07:57 08/27/17 07:57 08/27/17 07:57 08/27/17 07:57 Intake and Output: 08/27/17 08/27/17 06:59 18:59 Intake Total 1733 625 Output Total 850 Balance 883 625 - Medications Medications: Current Medications Efavirenz/Emtricitabine/Tenofovir (Atripla 600 Mg-200 Mg-300 Mg) 1 tab PO DAILY [facility] Last Admin: 08/27/17 10:50 Dose: 1 tab Famotidine (Pepcid) 20 mg PO DAILY [facility] Last Admin: 08/27/17 10:50 Dose: 20 mg Haloperidol (Haldol) 5 mg PO Q6 PRN PRN Reason: Psychosis Valproate Sodium 500 mg/ (Sodium Chloride) 105 mls @ 105 mls/hr IVPB Q12H [facility] PRN Reason: Per Protocol Last Admin: 08/27/17 02:26 Dose: 105 mls/hr Insulin Aspart (Novolog) 0 unit SC ACHS [facility] PRN Reason: Protocol Last Admin: 08/27/17 12:32 Dose: Not Given Insulin Aspart (Novolog) 6 unit SC AC [facility] Insulin Glargine (Lantus) 8 unit SC HS [facility] Levothyroxine Sodium (Synthroid) 125 mcg PO DAILY@0630 [facility] Last Admin: 08/27/17 06:34 Dose: 125 mcg Ondansetron HCl (Zofran Inj) 4 mg IVP Q6H [facility] PRN Reason: Nausea/Vomiting Last Admin: 08/19/17 08:35 Dose: 4 mg Sucralfate (Carafate Oral Susp) 1 gm PO ACS [facility] Last Admin: 08/27/17 06:34 Dose: 1 gm Trimethoprim/Sulfamethoxazole (Bactrim Ds Tab) 1 tab PO MWF [facility] Last Admin: 08/27/17 10:50 Dose: 1 tab - Labs Labs: 08/27/17 09:15 08/27/17 08:16 PT 11.2 SECONDS (9.7-12.2) 08/08/17 10:10 INR 1.0 08/08/17 10:10 APTT 25 SECONDS (21-34) 08/08/17 10:10 - Constitutional Appears: Cachectic - Head Exam Head Exam: ATRAUMATIC, NORMAL INSPECTION, NORMOCEPHALIC - GI/Abdominal Exam GI & Abdominal Exam: Soft Additional comments: poor appetite - Neurological Exam Neurological Exam: Alert, Awake Neuro motor strength exam: Left Upper Extremity: 4, Right Upper Extremity: 4, Left Lower Extremity: 3, Right Lower Extremity: 3 Additional comments: She is slow in responding to commands, but able to follow. Assessment and Plan (1) Encephalopathy acute Assessment & Plan: Case discussed with Dr. Denney, will discontinue MRI of the brain for now. Continue current medical, physical, and occupational therapies. Status: Acute
[2017-08-27] MEDS ORDERED: Dextrose 5%/0.9% NS 1,000 ML IV SCH (14:45)
[2017-08-27] MEDS: Dextrose 5%/0.9% NS 1,000 ML IV SCH (17:00)
[2017-08-27] MEDS ORDERED: (Lantus) Insulin Glargine, Recombinant SC ONE (21:35)
[2017-08-27] MEDS ORDERED: (Lantus) Insulin Glargine, Recombinant SC SCH (22:00)
[2017-08-28] MEDS: Valproate 500 MG in Sodium Chloride 0.9% 100 ML IVPB SCH ×2 (01:54→13:28)
[2017-08-28] MEDS: Levothyroxine 125 MCG TAB PO SCH (05:49)
[2017-08-28] MEDS ORDERED: Dextrose 50% SYRINGE Inj (50 ml) IV STA (06:20)
[2017-08-28] MEDS: (Novolog) Insulin Aspart, Recombinant 100 u/ml 10 ml vial SC SCH ×7 (07:21→21:58)
[2017-08-28 07:38] LABS: EOS # 0.1 K/uL (0.0-0.7); LYMPH # 0.8 K/uL (1.0-4.3); LYMPH % 4.5 % (20.0-40.0)
[2017-08-28] MEDS: Sucralfate 1 gm/10 ml Oral Susp UD PO SCH ×2 (07:41→21:01)
[2017-08-28 07:47] LABS: BASO % 0.3 % (0.0-2.0); EOS % 0.4 % (0.0-4.0); MEAN CELL VOLUME 87.1 fL (81.0-99.0); MEAN CORPUSCULAR HEMOGLOBIN 29.8 pg (27.0-31.0); MEAN CORPUSCULAR HGB CONC 34.2 g/dL (33.0-37.0); MEAN PLATELET VOLUME 7.9 fL (7.2-11.7); MONO # 0.7 K/uL (0.0-0.8); RED CELL DISTRIBUTION WIDTH 15.7 % (11.5-14.5); WHITE BLOOD COUNT 16.9 K/uL (4.8-10.8)
--- NOTE | 2017-08-28 07:50 | CP.PCM.PN ---
<Rupesh Sahu - Last Filed: 08/28/17 14:53> Subjective - Date & Time of Evaluation Date of Evaluation: 08/28/17 Time of Evaluation: 07:10 - Subjective Subjective: PGY1 Medicine Note for Dr. Valle Patient was seen and examined at bedside this morning. Patient appears altered today. She is currently non-verbal, not responding to any questions. She has a blank stare on her face. ROS unattainable. Patient appears to be in no pain or acute distress. Objective - Vital Signs/Intake and Output Vital Signs (last 24 hours): Temp Pulse Resp BP Pulse Ox 98.8 F 90 20 158/87 H 100 08/28/17 04:39 08/28/17 06:00 08/28/17 06:00 08/28/17 06:00 08/28/17 06:00 Intake and Output: 08/28/17 08/28/17 06:59 18:59 Intake Total 700 400 Output Total 800 Balance -100 400 - Medications Medications: Current Medications Efavirenz/Emtricitabine/Tenofovir (Atripla 600 Mg-200 Mg-300 Mg) 1 tab PO DAILY [facility] Last Admin: 08/27/17 10:50 Dose: 1 tab Famotidine (Pepcid) 20 mg PO DAILY [facility] Last Admin: 08/27/17 10:50 Dose: 20 mg Haloperidol (Haldol) 5 mg PO Q6 PRN PRN Reason: Psychosis Valproate Sodium 500 mg/ (Sodium Chloride) 105 mls @ 105 mls/hr IVPB Q12H [facility] PRN Reason: Per Protocol Last Admin: 08/28/17 01:54 Dose: 105 mls/hr Dextrose/Sodium Chloride (Dextrose 5%/0.9% Ns 1000 Ml) 1,000 mls @ 50 mls/hr IV .Q20H [facility] Last Admin: 08/27/17 17:00 Dose: 50 mls/hr Insulin Aspart (Novolog) 0 unit SC ACHS [facility] PRN Reason: Protocol Last Admin: 08/28/17 07:21 Dose: Not Given Insulin Aspart (Novolog) 6 unit SC AC [facility] Last Admin: 08/28/17 07:21 Dose: Not Given Insulin Glargine (Lantus) 8 unit SC HS [facility] Last Admin: 08/27/17 21:36 Dose: Not Given Levothyroxine Sodium (Synthroid) 125 mcg PO DAILY@0630 [facility] Last Admin: 08/28/17 05:49 Dose: 125 mcg Ondansetron HCl (Zofran Inj) 4 mg IVP Q6H PRN PRN Reason: Nausea/Vomiting Last Admin: 08/27/17 14:44 Dose: 4 mg Sucralfate (Carafate Oral Susp) 1 gm PO ACBHS [facility] Last Admin: 08/28/17 07:41 Dose: 1 gm Trimethoprim/Sulfamethoxazole (Bactrim Ds Tab) 1 tab PO MWF [facility] Last Admin: 08/27/17 10:50 Dose: 1 tab - Labs Labs: 08/27/17 09:15 08/27/17 08:16 PT 11.2 SECONDS (9.7-12.2) 08/08/17 10:10 INR 1.0 08/08/17 10:10 APTT 25 SECONDS (21-34) 08/08/17 10:10 - Constitutional Appears: No Acute Distress, Chronically Ill - Head Exam Head Exam: ATRAUMATIC, NORMOCEPHALIC - Eye Exam Eye Exam: EOMI, Normal appearance - ENT Exam ENT Exam: Mucous Membranes Moist - Respiratory Exam Respiratory Exam: Clear to Ausculation Bilateral, NORMAL BREATHING PATTERN. absent: Accessory Muscle Use, Rales, Rhonchi, Wheezes, Respiratory Distress - Cardiovascular Exam Cardiovascular Exam: REGULAR RHYTHM, +S1, +S2 - GI/Abdominal Exam GI & Abdominal Exam: Soft, Normal Bowel Sounds. absent: Distended, Firm, Guarding, Rigid, Tenderness - Extremities Exam Extremities Exam: absent: Calf Tenderness, Pedal Edema Additional comments: SCDs in place. - Neurological Exam Neurological Exam: Altered (non-verbal. Blank stare on her face throughout exam. ), Awake. absent: Oriented x3 Additional comments: responds to deep, painful stimuli - Psychiatric Exam Psychiatric exam: Flat Affect - Skin Skin Exam: Dry, Warm Assessment and Plan - Assessment and Plan (Free Text) Assessment: Acute Encephalopathy - possible new onset Seizure (08/22) Patient's mental status appears decreased today. She is not answering many questions and appears to have a flat affect. Will continue to monitor. Patient potentially had a seizure over night. CT (08/22) was negative for any acute findings. Brain MRI was ordered for f/u. patient has not had any more events since then Neurology Consulted, Dr. Denney --> Help appreciated; states that all changes in AMS are most likely due to AIDS Brain MRI w/o contrast(08/22) - Mild diffuse/confluent nonspecific white matter changes as described. Findings are of uncertain etiology though could represent sequela of HIV encephalopathy. PML not excluded. See above discussion for additional differential diagnostic considerations. Questionable secretions/opacification of exuberantly aerated mastoid air cells ramyfing into the left petrous apex however the possibility apical petrositis or small the left petrous CT apex cholesterol granuloma. Repeat Head CT w/o contrast 08/28/17 - Significant motion artifact limits this exam however interval edema is identified at the right greater than left basal ganglia and thalami as well as the bilateral occipital lobes and the right parietal lobe. Is difficult to determine definitively though this is vasogenic or cytotoxic however embolic infarction is questioned. Given the basal ganglia and thalami being affected focally, and anoxic insult is included in the differential diagnosis or even though there is no global loss of vaca-white matter differentiation and edema in this patient. Infectious or metabolic etiologies are not excluded but are not favored. * EEG ordered for morning of 08/23: This is a probably normal EEG. There was increased beta activity noticed intermittently. This could be a normal finding. No focal slowing no seizure like activity was observed. Correlation with clinical findings is needed. * JAGUAR virus <500 = negative * HLA-B57:01 sensitivity, awaiting results. 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 Opportunistic Infection ID Dr. Meneses --> help appreciated * Continue Diflucan - CT head 08/11 - Negative - MRI 08/12 - unremarkable - LDH - 478 - CD4 - 72 (AIDS confirmed) -->repeat 110 - HIV-1 RNA Qnt (RT-PCR) - 5.80 high Must r/o infectious causes * CMV - IgG > 10; IgM <30; Dennotes previous infection, no acute infection * Crypto - <1:2 * RPR - nonreactive * Toxoplasma - IgG < 7.2; IgM < 8 Bandemia/elevated WBC/resolved AIDS * Dr. Meneses recs * Bactrim DS 1 tab PO M/W/F * Atripla [id number](Efavirenz/Emtricitabine/Teno) 1 tab PO daily - script written and placed in chart for pt's to garbage pick up worker and fill, so when patient is discharged to [facility], he will be able to take her medication with her, as [facility] does not usually provide HARRT medications. Dr. Sahu discussed with pt's , Emiliano Hoang, on the phone. He stated he understands and will garbage pick up worker prescription to fill it by 08/28. * Neupogen given 08/25 * HIV screen Positive, CD4 = 72, repeat CD4 = 110 * hep panel negative * Will f/u recs for HARRT therapy upon discharge. * Patient will need to follow up with HIV clinic for continuation of HARRT therapy as out patient. * [facility] - Clinic at [address], [place] * [facility] - Clinic at [address], [place] Phone Hyponatremia; resolved * STOPPED medications due to potential s/e of hyponatremia * Zoloft, Trazodone and IV fluids. * Nephro Consult, Dr. Wong - help appreciated, f/u recs * urine sodium 113 --> 43 * urine osmol 502 --> 176 * serum osmol 276 * will continue to monitor Dysphagia; resolved Chest CT * particulate matter, possibly food, identified within the esophageal lumen intermixed with gas. * Incidental 6mm nodule within superior right breast. CXR * no acute cardiopulmonary disease Neck soft tissue CT * Abnormal circumferential thickening noted of the cervical esophagus. findings could be due to reflux esophagitis but esophageal carcinoma is not excluded. GI consulted, Dr. 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 Psychiatry, Dr. Henderson --> help appreciated * haloperidol - held due to somnolence * hydroxyzine * zoloft - stopped see above * trazadone 50mg PO HS - stopped see above History of hypothyroidism; stable - TSH: 27.8 - T3: 2.19 - T4: 0.89 * Synthroid 125mcg QD Diabetes hypoglycemia protocol RISS only for now Endo consulted, Dr. Nesha Donaldson; appreciate recs * Lantus changed to 6 units HS * Novolog changed to 4 units TIDAC * ISS low HgA1C - 7.1 accuchecks q6h Continue to monitor Urinary Retention; resolved * Bladder scan * if retaining, Insert pink Hyperkalemia; resolved -will monitor Right breast mass - incidental finding on Chest CT; f/u as outpatient * patient will need script for diagnostic mammogram with ultrasound and FNA upon discharge. Prophylactic Care * Heparin 5000u sc q8h - DC'ed due to anemia * SCDs for DVT ppx * Pepcid 20 ivp daily * Fall precautions * 1-1 sitter Patient and patient's are the only people that know of the patient's HIV + status. was informed of AIDS diagnosis. The patient and her do not want anyone else to know of the patient's diagnosis. If patient's sons or mother are in the room, do not discuss patient's diagnosis with them!!! Contact number for patient's (Emiliano Hoang) is wrong in the chart. His cell phone number is [phone]. Case discussed with Dr. Tori Goddard Adelina PGY1 <Drew Valle H - Last Filed: 08/29/17 07:50> Objective - Vital Signs/Intake and Output Vital Signs (last 24 hours): Temp Pulse Resp BP Pulse Ox 98.5 F 80 20 143/91 H 100 08/29/17 04:19 08/29/17 05:43 08/29/17 05:43 08/29/17 05:43 08/29/17 04:19 Intake and Output: 08/29/17 08/29/17 06:59 18:59 Intake Total 930 Balance 930 - Medications Medications: Current Medications Divalproex Sodium (Depakote Er) 250 mg PO DAILY [facility] Last Admin: 08/28/17 15:29 Dose: Not Given Efavirenz/Emtricitabine/Tenofovir (Atripla 600 Mg-200 Mg-300 Mg) 1 tab PO DAILY [facility] Last Admin: 08/28/17 09:01 Dose: 1 tab Famotidine (Pepcid) 20 mg PO DAILY [facility] Last Admin: 08/28/17 09:00 Dose: 20 mg Dextrose/Sodium Chloride (Dextrose 5%/0.9% Ns 1000 Ml) 1,000 mls @ 50 mls/hr IV .Q20H [facility] Last Admin: 08/28/17 12:21 Dose: 50 mls/hr Fluconazole (Diflucan Iv 100 Mg/50 Ml Ns) 50 mls @ 100 mls/hr IVPB DAILY [facility] Insulin Aspart (Novolog) 0 unit SC ACHS [facility] PRN Reason: Protocol Last Admin: 08/28/17 21:58 Dose: Not Given Insulin Aspart (Novolog) 4 unit SC AC [facility] Last Admin: 08/28/17 18:24 Dose: 4 unit Insulin Glargine (Lantus) 6 unit SC HS [facility] Last Admin: 08/28/17 22:01 Dose: 6 units Levothyroxine Sodium (Synthroid) 125 mcg PO DAILY@0630 [facility] Last Admin: 08/29/17 05:34 Dose: 125 mcg Ondansetron HCl (Zofran Inj) 4 mg IVP Q6H PRN PRN Reason: Nausea/Vomiting Last Admin: 08/27/17 14:44 Dose: 4 mg Sucralfate (Carafate Oral Susp) 1 gm PO ACBHS [facility] Last Admin: 08/28/17 21:01 Dose: 1 gm Trimethoprim/Sulfamethoxazole (Bactrim Ds Tab) 1 tab PO MWF [facility] Last Admin: 08/27/17 10:50 Dose: 1 tab - Labs Labs: 08/28/17 07:25 08/28/17 07:25 PT 11.2 SECONDS (9.7-12.2) 08/08/17 10:10 INR 1.0 08/08/17 10:10 APTT 25 SECONDS (21-34) 08/08/17 10:10 Attending/Attestation - Attestation I have personally seen and examined this patient.: Yes I have fully participated in the care of the patient.: Yes I have reviewed all pertinent clinical information, including history, physical exam and plan: Yes Notes (Text): 08/29/17 07:49 Medical Attending: Patient was seen and examined by me as well. She is now on HARRT medication. Mental status today was very very somulent. JAGUAR virus studies returned and were negative
[2017-08-28 07:54] LABS: PLATELET COUNT 46 K/uL (130-400)
--- NOTE | 2017-08-28 08:18 | CP.PCM.PN ---
Subjective - Date & Time of Evaluation Date of Evaluation: 08/28/17 Time of Evaluation: 08:18 - Subjective Subjective: Ms. Morel was seen and examined at the bedside. She spontaneouly open her eyes, but unable to utter any words. She response to painful stimuli. She has become incontinent overnight. She has hypoglemia episode during the night and dextrose 50 1 ampule was given overnight. According to the staff, patient has a very poor appetite for couple days. Her vital signs are stable overnight. Objective - Vital Signs/Intake and Output Vital Signs (last 24 hours): Temp Pulse Resp BP Pulse Ox 98.8 F 90 20 158/87 H 100 08/28/17 04:39 08/28/17 06:00 08/28/17 06:00 08/28/17 06:00 08/28/17 06:00 Intake and Output: 08/28/17 08/28/17 06:59 18:59 Intake Total 700 400 Output Total 800 Balance -100 400 - Medications Medications: Current Medications Efavirenz/Emtricitabine/Tenofovir (Atripla 600 Mg-200 Mg-300 Mg) 1 tab PO DAILY [facility] Last Admin: 08/27/17 10:50 Dose: 1 tab Famotidine (Pepcid) 20 mg PO DAILY [facility] Last Admin: 08/27/17 10:50 Dose: 20 mg Haloperidol (Haldol) 5 mg PO Q6 PRN PRN Reason: Psychosis Valproate Sodium 500 mg/ (Sodium Chloride) 105 mls @ 105 mls/hr IVPB Q12H [facility] PRN Reason: Per Protocol Last Admin: 08/28/17 01:54 Dose: 105 mls/hr Dextrose/Sodium Chloride (Dextrose 5%/0.9% Ns 1000 Ml) 1,000 mls @ 50 mls/hr IV .Q20H [facility] Last Admin: 08/27/17 17:00 Dose: 50 mls/hr Insulin Aspart (Novolog) 0 unit SC ACHS [facility] PRN Reason: Protocol Last Admin: 08/28/17 07:21 Dose: Not Given Insulin Aspart (Novolog) 6 unit SC AC [facility] Last Admin: 08/28/17 07:21 Dose: Not Given Insulin Glargine (Lantus) 8 unit SC HS [facility] Last Admin: 08/27/17 21:36 Dose: Not Given Levothyroxine Sodium (Synthroid) 125 mcg PO DAILY@0630 [facility] Last Admin: 08/28/17 05:49 Dose: 125 mcg Ondansetron HCl (Zofran Inj) 4 mg IVP Q6H PRN PRN Reason: Nausea/Vomiting Last Admin: 08/27/17 14:44 Dose: 4 mg Sucralfate (Carafate Oral Susp) 1 gm PO ACBHS [facility] Last Admin: 08/28/17 07:41 Dose: 1 gm Trimethoprim/Sulfamethoxazole (Bactrim Ds Tab) 1 tab PO MWF [facility] Last Admin: 08/27/17 10:50 Dose: 1 tab - Labs Labs: 08/28/17 07:25 08/27/17 08:16 PT 11.2 SECONDS (9.7-12.2) 08/08/17 10:10 INR 1.0 08/08/17 10:10 APTT 25 SECONDS (21-34) 08/08/17 10:10 - Constitutional Appears: Cachectic - Head Exam Head Exam: ATRAUMATIC, NORMAL INSPECTION, NORMOCEPHALIC - Neurological Exam Neuro motor strength exam: Left Upper Extremity: 2/1, Right Upper Extremity: 2/1 , Left Lower Extremity: 2/1, Right Lower Extremity: 2/1 Additional comments: She respond to deep pain stimuli and very weak extremities. She is unable to follow any commands. Assessment and Plan (1) Encephalopathy acute Assessment & Plan: Case discussed with Dr. Denney, will recommend repeat CT of the head without and check valproic level. Please refer to endocrinology regarding her random glucose being labile. Please refrain from giving any benzodiazepines. Continue other medical, physical, and occupational therapies. Status: Acute
[2017-08-28 08:26] LABS: CHLORIDE 107 mmol/L (98-107); POTASSIUM 3.2 mmol/L (3.6-5.2); SODIUM 136 mmol/L (132-148)
[2017-08-28 08:29] LABS: ALB/GLOB RATIO 0.7 (1.0-2.1); ALKALINE PHOSPHATASE 121 U/L (38-126); ALT/SGPT 17 U/L (9-52); AST/SGOT 13 U/L (14-36); BILIRUBIN,TOTAL 0.4 mg/dL (0.2-1.3); BLOOD UREA NITROGEN 5 mg/dL (7-17); CALCIUM 7.3 mg/dl (8.6-10.4); CARBON DIOXIDE 19 mmol/L (22-30); GFR AFRICAN-AMERICAN > 60; GLUCOSE,RANDOM 247 mg/dL (65-105); TOTAL PROTEIN 5.8 g/dL (6.3-8.3)
[2017-08-28] MEDS ORDERED: (Novolog) Insulin Aspart, Recombinant 100 u/ml 10 ml vial SC ONE (09:00)
[2017-08-28] MEDS: Efavirenz/Emtricitabine/Teno 1 TAB PO SCH (09:01)
[2017-08-28 09:16] LABS: NEUTROPHIL 55 % (50-75); TOTAL CELLS COUNTED 100
--- NOTE | 2017-08-28 11:00 | CT ---
PROCEDURE: CT HEAD WITHOUT CONTRAST. HISTORY: change of mental status COMPARISON: None available. TECHNIQUE: Axial computed tomography images were obtained through the head/brain without intravenous contrast. Radiation dose: Total exam DLP = 3600.32 mGy-cm. This CT exam was performed using one or more of the following dose reduction techniques: Automated exposure control, adjustment of the mA and/or kV according to patient size, and/or use of iterative reconstruction technique. FINDINGS: HEMORRHAGE: No intracranial hemorrhage. BRAIN: There is interval edema with local mass effect identified at the right simply greater than left thalami and posteromedial bilateral basal ganglia. Mild edema is also questioned at the right parietal lobe approaching the vertex. Edema is also seen in the bilateral occipital lobes which may be vasogenic however there are elements that may indicate that this is cytotoxic edema. The examination is heavily motion artifacted. There is loss of sulcation of the bilateral occipital lobes as result of the edema pattern and there are no definite additional interval findings above or below the tentorium including throughout the brainstem. Follow-up MRI is recommended when possible given the patient's lack of cooperation in positioning. VENTRICLES: Unremarkable. No hydrocephalus. CALVARIUM: Unremarkable. PARANASAL SINUSES: Unremarkable as visualized. No significant inflammatory changes. MASTOID AIR CELLS: Unremarkable as visualized. No inflammatory changes. OTHER FINDINGS: None. IMPRESSION: Significant motion artifact limits this exam however interval edema is identified at the right greater than left basal ganglia and thalami as well as the bilateral occipital lobes and the right parietal lobe. Is difficult to determine definitively though this is vasogenic or cytotoxic however embolic infarction is questioned. Given the basal ganglia and thalami being affected focally, and anoxic insult is included in the differential diagnosis or even though there is no global loss of vaca-white matter differentiation and edema in this patient. Infectious or metabolic etiologies are not excluded but are not favored.
--- NOTE | 2017-08-28 12:14 | CARD ---
APPROVED REPORT EKG Measurement Heart [id number] <Conclusion> Normal sinus rhythm Normal ECG
--- NOTE | 2017-08-28 12:14 | CARD ---
APPROVED REPORT EKG Measurement Heart [id number] <Conclusion> Normal sinus rhythm Normal ECG
[2017-08-28] MEDS: Dextrose 5%/0.9% NS 1,000 ML IV SCH (12:21)
--- NOTE | 2017-08-28 12:31 | PN ---
ENDOCRINOLOGY FOLLOWUP NOTE DATE: LOCATION: Room #657. This is a 57-year-old female with recent uncontrolled type 1 insulin-dependent diabetes, now being followed closely for metabolic management. Her glycemic values continued to be fluctuating also because of the variability of her oral intake very suboptimal, nil portions as noted. Her latest glucose levels have ranged from 60 to 96 and 233 mg/dL. Her latest chemistry showed the BUN of 5, sodium 136, potassium 3.2, chloride 107, CO2 19, glucose 247, and creatinine 0.9. So at this time, we will continue the low-dose correction scale using Humalog insulin as given. We will also modify the Novolog the lower dose of 4 units subcutaneous t.i.d. before meals as ordered. We will lower the Lantus to 6 units subcutaneous at bedtime daily as ordered. We will titrate incrementally as indicated to optimize metabolic control. We will follow. Nesha Donaldson MD
[2017-08-28] MEDS ORDERED: (Lantus) Insulin Glargine, Recombinant SC SCH (22:00)
--- NOTE | 2017-08-28 22:21 | CP.PCM.PN ---
Subjective - Date & Time of Evaluation Date of Evaluation: 08/28/17 Time of Evaluation: 03:00 - Subjective Subjective: dictated Objective - Vital Signs/Intake and Output Vital Signs (last 24 hours): Temp Pulse Resp BP Pulse Ox 97.3 F L 113 H 20 167/98 H 98 08/28/17 15:55 08/28/17 15:55 08/28/17 15:55 08/28/17 15:55 08/28/17 15:55 Intake and Output: 08/28/17 08/29/17 18:59 06:59 Intake Total 1160 Output Total 1 Balance 1159 - Medications Medications: Current Medications Divalproex Sodium (Depakote Er) 250 mg PO DAILY [facility] Last Admin: 08/28/17 15:29 Dose: Not Given Efavirenz/Emtricitabine/Tenofovir (Atripla 600 Mg-200 Mg-300 Mg) 1 tab PO DAILY [facility] Last Admin: 08/28/17 09:01 Dose: 1 tab Famotidine (Pepcid) 20 mg PO DAILY [facility] Last Admin: 08/28/17 09:00 Dose: 20 mg Dextrose/Sodium Chloride (Dextrose 5%/0.9% Ns 1000 Ml) 1,000 mls @ 50 mls/hr IV .Q20H [facility] Last Admin: 08/28/17 12:21 Dose: 50 mls/hr Fluconazole 100 mg/ (Miscellaneous) 50 mls @ 100 mls/hr IVPB DAILY [facility] Insulin Aspart (Novolog) 0 unit SC ACHS [facility] PRN Reason: Protocol Last Admin: 08/28/17 21:58 Dose: Not Given Insulin Aspart (Novolog) 4 unit SC AC [facility] Last Admin: 08/28/17 18:24 Dose: 4 unit Insulin Glargine (Lantus) 6 unit SC HS [facility] Last Admin: 08/28/17 22:01 Dose: 6 units Levothyroxine Sodium (Synthroid) 125 mcg PO DAILY@0630 [facility] Last Admin: 08/28/17 05:49 Dose: 125 mcg Ondansetron HCl (Zofran Inj) 4 mg IVP Q6H PRN PRN Reason: Nausea/Vomiting Last Admin: 08/27/17 14:44 Dose: 4 mg Sucralfate (Carafate Oral Susp) 1 gm PO ACBHS [facility] Last Admin: 08/28/17 21:01 Dose: 1 gm Trimethoprim/Sulfamethoxazole (Bactrim Ds Tab) 1 tab PO MWF [facility] Last Admin: 08/27/17 10:50 Dose: 1 tab - Labs Labs: 08/28/17 07:25 08/28/17 07:25 PT 11.2 SECONDS (9.7-12.2) 08/08/17 10:10 INR 1.0 08/08/17 10:10 APTT 25 SECONDS (21-34) 08/08/17 10:10
--- NOTE | 2017-08-28 23:41 | PN ---
DATE: SUBJECTIVE: The patient was very lethargic when I went to see her and she, however,responds to painful stimuli, has been incontinent, was hypoglycemic. They are giving D5 now and remains with poor appetite. I would put her back on the Diflucan, may be that was helping her. 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 I do not know a way of letting them know as this is a difficult diagnosis to discuss with them. However, I will leave it to the team to see. I would leave her on Atripla. fluconazole, she also may have PML it seems like and hopefully starting these medications may help her and I have left her on Bactrim, MWF as she drops her white count and may need Neupogen if that happens. 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 Jemal Meneses MD
[2017-08-29] MEDS ORDERED: Labetalol 25mg/5ml Syringe IVP STA (04:45)
[2017-08-29] MEDS: Levothyroxine 125 MCG TAB PO SCH (05:34)
[2017-08-29] MEDS: (Novolog) Insulin Aspart, Recombinant 100 u/ml 10 ml vial SC SCH ×7 (07:58→22:00)
[2017-08-29] MEDS: Sucralfate 1 gm/10 ml Oral Susp UD PO SCH ×2 (08:00→21:55)
--- NOTE | 2017-08-29 08:21 | CP.PCM.PN ---
Subjective - Date & Time of Evaluation Date of Evaluation: 08/29/17 Time of Evaluation: 08:18 - Subjective Subjective: Ms Morel was seen and examined at the bedside. She is starring at the space, not responsive to verbal cues. She response appropriately with pain stimuli.She remains with very poor appetite. Her blood pressure is elevated this am Objective - Vital Signs/Intake and Output Vital Signs (last 24 hours): Temp Pulse Resp BP Pulse Ox 98.5 F 80 20 143/91 H 100 08/29/17 04:19 08/29/17 05:43 08/29/17 05:43 08/29/17 05:43 08/29/17 04:19 Intake and Output: 08/29/17 08/29/17 06:59 18:59 Intake Total 930 Balance 930 - Medications Medications: Current Medications Divalproex Sodium (Depakote Er) 250 mg PO DAILY [facility] Last Admin: 08/28/17 15:29 Dose: Not Given Efavirenz/Emtricitabine/Tenofovir (Atripla 600 Mg-200 Mg-300 Mg) 1 tab PO DAILY [facility] Last Admin: 08/28/17 09:01 Dose: 1 tab Famotidine (Pepcid) 20 mg PO DAILY [facility] Last Admin: 08/28/17 09:00 Dose: 20 mg Dextrose/Sodium Chloride (Dextrose 5%/0.9% Ns 1000 Ml) 1,000 mls @ 50 mls/hr IV .Q20H [facility] Last Admin: 08/28/17 12:21 Dose: 50 mls/hr Fluconazole (Diflucan Iv 100 Mg/50 Ml Ns) 50 mls @ 100 mls/hr IVPB DAILY [facility] Insulin Aspart (Novolog) 0 unit SC ACHS [facility] PRN Reason: Protocol Last Admin: 08/29/17 07:58 Dose: 2 unit Insulin Aspart (Novolog) 4 unit SC AC [facility] Last Admin: 08/29/17 07:59 Dose: 4 unit Insulin Glargine (Lantus) 6 unit SC HS [facility] Last Admin: 08/28/17 22:01 Dose: 6 units Levothyroxine Sodium (Synthroid) 125 mcg PO DAILY@0630 [facility] Last Admin: 08/29/17 05:34 Dose: 125 mcg Ondansetron HCl (Zofran Inj) 4 mg IVP Q6H PRN PRN Reason: Nausea/Vomiting Last Admin: 08/27/17 14:44 Dose: 4 mg Sucralfate (Carafate Oral Susp) 1 gm PO ACBHS [facility] Last Admin: 08/29/17 08:00 Dose: 1 gm Trimethoprim/Sulfamethoxazole (Bactrim Ds Tab) 1 tab PO MWF [facility] Last Admin: 08/27/17 10:50 Dose: 1 tab - Labs Labs: 08/28/17 07:25 08/28/17 07:25 PT 11.2 SECONDS (9.7-12.2) 08/08/17 10:10 INR 1.0 08/08/17 10:10 APTT 25 SECONDS (21-34) 08/08/17 10:10 - Constitutional Appears: Cachectic - Head Exam Head Exam: ATRAUMATIC, NORMAL INSPECTION, NORMOCEPHALIC - Exam Additional comments: with very poor appetite - Neurological Exam Neurological Exam: Awake Neuro motor strength exam: Left Upper Extremity: 2/1, Right Upper Extremity: 2/1 , Left Lower Extremity: 2/1, Right Lower Extremity: 2/1 Additional comments: Neurological deteriorate from previous examination. She spontaneously opens her eyes, unable to follow commands, responds to pain stimuli. Assessment and Plan (1) Encephalopathy acute Assessment & Plan: Case discussed with Dr. Denney, with her elevated valproic level, depakote dose was decreased yesterday from 500 mg to 250 mg PO daily. Recommends MRI and MRA of the brain, ammonia level due to change of mental status. Start with aspirin 81 mg PO daily. Continue other current medical, physical, and occupational therapies. Status: Acute
[2017-08-29] MEDS: Efavirenz/Emtricitabine/Teno 1 TAB PO SCH (09:21)
[2017-08-29] MEDS: Tmp-Smz 800 mg-160 mg DS Tab PO SCH (09:22)
[2017-08-29] MEDS ORDERED: Fluconazole IV 200mg/100 ml NS 100 MG in Premixed IV 1 EA IVPB SCH (10:00)
--- NOTE | 2017-08-29 10:38 | MRI ---
PROCEDURE: MR Angiography of the neck without contrast HISTORY: change in mental status COMPARISON: None available. TECHNIQUE: 3D [id number] angiography of the neck was performed. Rotating maximum intensity projection images of the cervical carotid and vertebral arteries were generated. The origins of the common carotid arteries were not visualized, which is a limitation inherent to the non-contrast time of flight technique. FINDINGS: RIGHT CAROTID ARTERIES: Common Carotid Artery: Normal Carotid Bifurcation: Atherosclerotic plaque is identified extending to the proximal right ICA origin. Internal Carotid Artery:Mild proximal right ICA stenosis noted External Carotid Artery (proximal branches): Normal. LEFT CAROTID ARTERIES: Common Carotid Artery: Normal. Carotid Bifurcation: Normal. Internal Carotid Artery:Normal. External Carotid Artery (proximal branches): Moderate proximal stenosis. VERTEBRAL ARTERIES: Right Vertebral Artery: Normal. Left Vertebral Artery: Normal. OTHER FINDINGS: None. IMPRESSION: No significant stenosis seen in the visualized bilateral common or internal carotid arteries. Mild right ICA proximal stenosis is identified with plaque identified at the right carotid bulb. Widely patent bilateral common carotids but otherwise, as imaged. Symmetric vertebrobasilar circulation.
[2017-08-29] MEDS: Fluconazole IV 100mg/50 ml NS 50 ML IVPB SCH (11:34)
--- NOTE | 2017-08-29 11:35 | MRI ---
PROCEDURE: MRI BRAIN WITHOUT CONTRAST HISTORY: Change of mental status, HIV COMPARISON: 08/12/2017 TECHNIQUE: Multiplanar, multisequence MR images of the brain were obtained without intravenous contrast enhancement. FINDINGS: HEMORRHAGE: None DWI: No evidence of an acute or early subacute infarction. BRAIN PARENCHYMA: There is interval significant worsening of confluent T2/FLAIR hyperintensities in the subcortical and deep frontal, parietal and occipital white matter also involving the right temporal and to a minimal extent left temporal white matter. Also noted is abnormal T2/FLAIR hyperintense signal in bilateral thalami, worse on the right as well as posterior limb of the right internal capsule. VENTRICLES: There is mild global parenchymal volume loss and proportionate enlargement of the ventricles and cortical sulci. CRANIUM: There is normal bone marrow signal pattern. ORBITS: Grossly unremarkable. PARANASAL SINUSES/MASTOIDS: There is mild mucosal thickening in the paranasal sinuses. VASCULAR SYSTEM: There are normal signal voids in the larger intracranial arteries. OTHER FINDINGS: None. 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
[2017-08-29] MEDS: Dextrose 5%/0.9% NS 1,000 ML IV SCH (11:36)
--- NOTE | 2017-08-29 11:44 | MRI ---
PROCEDURE: Magnetic Resonance Angiography Brain HISTORY: change in mental status COMPARISON: None available. TECHNIQUE: 3D time of flight MR angiography of the intracranial arteries was performed. Rotating maximum intensity projection images were generated. Examination is significantly degraded by patient motion FINDINGS: INTERNAL CAROTID ARTERIES: Unremarkable. The skull base, petrous, cavernous and supraclinoid segments are bilaterally widely patient. ANTERIOR CEREBRAL ARTERIES: Unremarkable. A1 and A2 segments are widely patent. Smaller distal branches unremarkable, as visualized. MIDDLE CEREBRAL ARTERIES: There are apparent areas of narrowing in bilateral M1 segments. . Perisylvian branches grossly symmetric. POSTERIOR CIRCULATION: Basilar Artery: Unremarkable. Distal Vertebral Arteries: Unremarkable. Posterior Cerebral Arteries: Unremarkable. Posterior Inferior Cerebellar Arteries: Unremarkable. ANEURYSM/ VASCULAR MALFORMATIONS: None. OTHER FINDINGS: None. IMPRESSION: Suboptimal diagnostic quality due to motion degraded images, allowing for this, no occlusion. Apparent narrowing in bilateral M1 segments could be related to motion artifacts.
[2017-08-29 14:08] LABS: BASO % 0.3 % (0.0-2.0); EOS % 0.2 % (0.0-4.0); HEMATOCRIT 38.4 % (34.0-47.0); LYMPH # 0.7 K/uL (1.0-4.3); LYMPH % 6.5 % (20.0-40.0); MEAN CELL VOLUME 88.5 fL (81.0-99.0); MEAN CORPUSCULAR HGB CONC 33.9 g/dL (33.0-37.0); MEAN PLATELET VOLUME 8.9 fL (7.2-11.7); MONO # 0.6 K/uL (0.0-0.8); MONO % 6.2 % (0.0-10.0); RED CELL DISTRIBUTION WIDTH 16.6 % (11.5-14.5); WHITE BLOOD COUNT 10.3 K/uL (4.8-10.8)
[2017-08-29 14:22] LABS: PLATELET COUNT 22 K/uL (130-400)
--- NOTE | 2017-08-29 14:42 | CP.PCM.PN ---
<LuzmaIsela - Last Filed: 08/29/17 16:29> Subjective - Date & Time of Evaluation Date of Evaluation: 08/29/17 Time of Evaluation: 09:00 - Subjective Subjective: Medicine Note for Dr. Valle Patient was seen and examined at bedside. Patient appears altered today. She is currently non-verbal, not responding to any questions. She has a blank stare on her face. ROS unattainable. Patient appears to be in no pain or acute distress. Objective - Vital Signs/Intake and Output Vital Signs (last 24 hours): Temp Pulse Resp BP Pulse Ox 98.2 F 99 H 18 135/82 99 08/29/17 08:19 08/29/17 08:19 08/29/17 08:19 08/29/17 11:38 08/29/17 08:19 Intake and Output: 08/29/17 08/29/17 06:59 18:59 Intake Total 930 Balance 930 - Medications Medications: Current Medications Aspirin (Ecotrin) 81 mg PO DAILY [facility] Last Admin: 08/29/17 09:21 Dose: 81 mg Divalproex Sodium (Depakote Er) 250 mg PO DAILY [facility] Last Admin: 08/29/17 11:38 Dose: Not Given Efavirenz/Emtricitabine/Tenofovir (Atripla 600 Mg-200 Mg-300 Mg) 1 tab PO DAILY [facility] Last Admin: 08/29/17 09:21 Dose: 1 tab Famotidine (Pepcid) 20 mg PO DAILY [facility] Last Admin: 08/29/17 09:21 Dose: 20 mg Hydralazine HCl (Apresoline) 10 mg IVP Q6H PRN PRN Reason: Systolic Blood Pressure Dextrose/Sodium Chloride (Dextrose 5%/0.9% Ns 1000 Ml) 1,000 mls @ 50 mls/hr IV .Q20H [facility] Last Admin: 08/29/17 11:36 Dose: 50 mls/hr Fluconazole (Diflucan Iv 100 Mg/50 Ml Ns) 50 mls @ 100 mls/hr IVPB DAILY [facility] Last Admin: 08/29/17 11:34 Dose: 100 mls/hr Insulin Aspart (Novolog) 0 unit SC ACHS [facility] PRN Reason: Protocol Last Admin: 08/29/17 11:33 Dose: 4 unit Insulin Aspart (Novolog) 6 unit SC AC [facility] Insulin Glargine (Lantus) 12 unit SC HS [facility] Levothyroxine Sodium (Synthroid) 125 mcg PO DAILY@0630 [facility] Last Admin: 08/29/17 05:34 Dose: 125 mcg Ondansetron HCl (Zofran Inj) 4 mg IVP Q6H PRN PRN Reason: Nausea/Vomiting Last Admin: 08/27/17 14:44 Dose: 4 mg Sucralfate (Carafate Oral Susp) 1 gm PO ACBHS [facility] Last Admin: 08/29/17 08:00 Dose: 1 gm Trimethoprim/Sulfamethoxazole (Bactrim Ds Tab) 1 tab PO MWF [facility] Last Admin: 08/29/17 09:22 Dose: 1 tab - Labs Labs: 08/29/17 14:01 08/28/17 07:25 PT 11.2 SECONDS (9.7-12.2) 08/08/17 10:10 INR 1.0 08/08/17 10:10 APTT 25 SECONDS (21-34) 08/08/17 10:10 - Additional Findings Additional findings: - Constitutional Appears: No Acute Distress, Chronically Ill - Head Exam Head Exam: ATRAUMATIC, NORMOCEPHALIC - Eye Exam Eye Exam: EOMI, Normal appearance - ENT Exam ENT Exam: Mucous Membranes Moist - Respiratory Exam Respiratory Exam: Clear to Ausculation Bilateral, NORMAL BREATHING PATTERN. absent: Accessory Muscle Use, Rales, Rhonchi, Wheezes, Respiratory Distress - Cardiovascular Exam Cardiovascular Exam: REGULAR RHYTHM, +S1, +S2 - GI/Abdominal Exam GI & Abdominal Exam: Soft, Normal Bowel Sounds. absent: Distended, Firm, Guarding, Rigid, Tenderness - Extremities Exam Extremities Exam: absent: Calf Tenderness, Pedal Edema Additional comments: SCDs in place. - Neurological Exam Neurological Exam: Altered (non-verbal. Blank stare on her face throughout exam. ), Awake. absent: Oriented x3 Additional comments: responds to deep, painful stimuli - Psychiatric Exam Psychiatric exam: Flat Affect - Skin Skin Exam: Dry, Warm Assessment and Plan - Assessment and Plan (Free Text) Plan: Acute Encephalopathy possible new onset Seizure (08/22) Patient's mental status appears decreased today. She is not answering many questions and appears to have a flat affect. Will continue to monitor. 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 Neck MRA 08/29/17: No significant stenosis seen in the visualized bilateral common or internal carotid arteries. Mild right ICA proximal stenosis is identified with plaque identified at the right carotid bulb. Widely patent bilateral common carotids but otherwise, as imaged. Symmetric vertebrobasilar circulation. Head MRA 08/29/17: Suboptimal diagnostic quality due to motion degraded images, allowing for this, no occlusion. Apparent narrowing in bilateral M1 segments could be related to motion artifacts. Patient potentially had a seizure over night. CT (08/22) was negative for any acute findings. Brain MRI was ordered for f/u. patient has not had any more events since then Neurology Consulted, Dr. Denney --> Help appreciated; states that all changes in AMS are most likely due to AIDS Brain MRI w/o contrast(08/22) - Mild diffuse/confluent nonspecific white matter changes as described. Findings are of uncertain etiology though could represent sequela of HIV encephalopathy. PML not excluded. See above discussion for additional differential diagnostic considerations. Questionable secretions/opacification of exuberantly aerated mastoid air cells ramyfing into the left petrous apex however the possibility apical petrositis or small the left petrous CT apex cholesterol granuloma. Repeat Head CT w/o contrast 08/28/17 - Significant motion artifact limits this exam however interval edema is identified at the right greater than left basal ganglia and thalami as well as the bilateral occipital lobes and the right parietal lobe. Is difficult to determine definitively though this is vasogenic or cytotoxic however embolic infarction is questioned. Given the basal ganglia and thalami being affected focally, and anoxic insult is included in the differential diagnosis or even though there is no global loss of vaca-white matter differentiation and edema in this patient. Infectious or metabolic etiologies are not excluded but are not favored. * EEG ordered for morning of 08/23: This is a probably normal EEG. There was increased beta activity noticed intermittently. This could be a normal finding. No focal slowing no seizure like activity was observed. Correlation with clinical findings is needed. 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 Opportunistic Infection ID Dr. Meneses --> help appreciated * Continue Diflucan, bactrim * Started Atripla started 08/27/17 - CT head 08/11 - Negative - MRI 08/12 - unremarkable - LDH - 478 - CD4 - 72 (AIDS confirmed) -->repeat 110 - HIV-1 RNA Qnt (RT-PCR) - 5.80 high - Viral Load: Must r/o infectious causes * CMV - IgG > 10; IgM <30; Dennotes previous infection, no acute infection * Crypto - <1:2 * RPR - nonreactive * Toxoplasma - IgG < 7.2; IgM < 8 Bandemia/elevated WBC/resolved AIDS * Dr. Meneses recs * Bactrim DS 1 tab PO M/W/F * Atripla [id number](Efavirenz/Emtricitabine/Teno) 1 tab PO daily - script written and placed in chart for pt's to waste picker and fill, so when patient is discharged to [facility], he will be able to take her medication with her, as [facility] does not usually provide HARRT medications. Dr. Sahu discussed with pt's , Emiliano Hoang, on the phone. He stated he understands and will waste picker prescription to fill it by 08/28. * Neupogen given 08/25 * HIV screen Positive, CD4 = 72, repeat CD4 = 110 * hep panel negative * Will f/u recs for HARRT therapy upon discharge. * Patient will need to follow up with HIV clinic for continuation of HARRT therapy as out patient. * [facility] - Clinic at [address], [place] * [facility] - Clinic at [address], [place] Phone Anemia; most likely 2/2 to advanced AIDS * Improved to Hgb of 12.7 from 7.1 - patient given 2 units pRBCs on 08/26/17 ( consent given by , Emiliano Hoang, on phone) * continue to monitor Diabetes hypoglycemia protocol RISS only for now Endo consulted, Dr. Nesha Donaldson; appreciate recs * Lantus changed to 12 units HS * Novolog changed to 6 units AC * ISS low HgA1C - 7.1 accuchecks q6h Continue to monitor Hyponatremia; resolved * STOPPED medications due to potential s/e of hyponatremia * Zoloft, Trazodone and IV fluids. * Nephro Consult, Dr. Wong - help appreciated, f/u recs * urine sodium 113 --> 43 * urine osmol 502 --> 176 * serum osmol 276 * will continue to monitor Dysphagia; resolved Chest CT * particulate matter, possibly food, identified within the esophageal lumen intermixed with gas. * Incidental 6mm nodule within superior right breast. CXR * no acute cardiopulmonary disease Neck soft tissue CT * Abnormal circumferential thickening noted of the cervical esophagus. findings could be due to reflux esophagitis but esophageal carcinoma is not excluded. GI consulted, Dr. 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 Prophylactic Care * Heparin 5000u sc q8h - DC'ed due to anemia * SCDs for DVT ppx * Pepcid 20 ivp daily * Fall precautions * 1-1 sitter Patient and patient's are the only people that know of the patient's HIV + status. was informed of AIDS diagnosis. The patient and her do not want anyone else to know of the patient's diagnosis. If patient's sons or mother are in the room, do not discuss patient's diagnosis with them!!! Contact number for patient's (Emiliano Hoang) is wrong in the chart. His cell phone number is [phone]. DW Luzma Marlow DO, PGY-1 <Drew Valle - Last Filed: 08/30/17 07:16> Objective - Vital Signs/Intake and Output Vital Signs (last 24 hours): Temp Pulse Resp BP Pulse Ox 99 F 102 H 20 167/85 H 98 08/30/17 04:08 08/30/17 04:08 08/30/17 04:08 08/30/17 04:08 08/30/17 04:08 Intake and Output: 08/30/17 08/30/17 06:59 18:59 Intake Total 920 Output Total 0 Balance 920 - Medications Medications: Current Medications Aspirin (Ecotrin) 81 mg PO DAILY [facility] Last Admin: 08/29/17 09:21 Dose: Not Given Efavirenz/Emtricitabine/Tenofovir (Atripla 600 Mg-200 Mg-300 Mg) 1 tab PO DAILY [facility] Last Admin: 08/29/17 09:21 Dose: Not Given Famotidine (Pepcid) 20 mg PO DAILY [facility] Last Admin: 08/29/17 09:21 Dose: Not Given Hydralazine HCl (Apresoline) 10 mg IVP Q6H PRN PRN Reason: Systolic Blood Pressure Dextrose/Sodium Chloride (Dextrose 5%/0.9% Ns 1000 Ml) 1,000 mls @ 50 mls/hr IV .Q20H [facility] Last Admin: 08/30/17 05:43 Dose: Not Given Fluconazole (Diflucan Iv 100 Mg/50 Ml Ns) 50 mls @ 100 mls/hr IVPB DAILY [facility] Last Admin: 08/29/17 11:34 Dose: 100 mls/hr Valproate Sodium 250 mg/ (Sodium Chloride) 102.5 mls @ 100 mls/hr IVPB DAILY [facility] Insulin Aspart (Novolog) 0 unit SC ACHS [facility] PRN Reason: Protocol Last Admin: 08/29/17 22:00 Dose: Not Given Insulin Aspart (Novolog) 6 unit SC AC [facility] Last Admin: 08/29/17 17:32 Dose: 6 unit Insulin Glargine (Lantus) 12 unit SC HS [facility] Last Admin: 08/29/17 22:00 Dose: Not Given Levothyroxine Sodium (Synthroid) 125 mcg PO DAILY@0630 [facility] Last Admin: 08/30/17 06:01 Dose: 125 mcg Ondansetron HCl (Zofran Inj) 4 mg IVP Q6H PRN PRN Reason: Nausea/Vomiting Last Admin: 08/27/17 14:44 Dose: 4 mg Sucralfate (Carafate Oral Susp) 1 gm PO ACBHS [facility] Last Admin: 08/29/17 21:55 Dose: 1 gm Trimethoprim/Sulfamethoxazole (Bactrim Ds Tab) 1 tab PO MWF [facility] Last Admin: 08/29/17 09:22 Dose: Not Given - Labs Labs: 08/29/17 14:01 08/29/17 14:01 PT 11.2 SECONDS (9.7-12.2) 08/08/17 10:10 INR 1.0 08/08/17 10:10 APTT 25 SECONDS (21-34) 08/08/17 10:10 Attending/Attestation - Attestation I have personally seen and examined this patient.: Yes I have fully participated in the care of the patient.: Yes I have reviewed all pertinent clinical information, including history, physical exam and plan: Yes Notes (Text): 08/30/17 07:11 Medical Attending: Patient was seen and examined by me. Agree with the above note by the resident The patient's mental status has declined signifigantly. She was only opening her eyes, non resposnive to commands. At times would mumble some words. The RN explained that she is not able to take medications and in particularly not able to administer HARRT medications. Later in the day returned from MRI and still was like this, NGT started for access. Overall prognosis appears very poor at this time. The JAGUAR virus serologies came back negative however the repeat MRI suugest possible PML. Resident explains that later in the day family members were present - however as mentioned before the patient as well as did not want the patient's medical condition to be known to rest of family. thank you Drew Valle
[2017-08-29 14:55] LABS: CHLORIDE 103 mmol/L (98-107); POTASSIUM 4.5 mmol/L (3.6-5.2); SODIUM 135 mmol/L (132-148)
[2017-08-29 14:57] LABS: AST/SGOT 16 U/L (14-36); BILIRUBIN,TOTAL 0.5 mg/dL (0.2-1.3); CARBON DIOXIDE 20 mmol/L (22-30); GFR AFRICAN-AMERICAN > 60
[2017-08-29 14:58] LABS: ALB/GLOB RATIO 0.7 (1.0-2.1); ALKALINE PHOSPHATASE 174 U/L (38-126); ALT/SGPT 15 U/L (9-52); BLOOD UREA NITROGEN 13 mg/dL (7-17); CALCIUM 8.1 mg/dl (8.6-10.4); GLUCOSE,RANDOM 355 mg/dL (65-105); PHOSPHOROUS 2.6 mg/dL (2.5-4.5); TOTAL PROTEIN 6.7 g/dL (6.3-8.3)
[2017-08-29 14:59] LABS: MAGNESIUM 1.7 mg/dL (1.6-2.3)
[2017-08-29] MEDS ORDERED: Valproate 250 MG in Sodium Chloride 0.9% 100 ML IVPB ONE (16:00)
[2017-08-29] MEDS ORDERED: Valproate 250 MG in Sodium Chloride 0.9% 100 ML IVPB SCH (16:00)
[2017-08-29 17:01] LABS: NEUTROPHIL 78 % (50-75); TOTAL CELLS COUNTED 100
--- NOTE | 2017-08-29 20:02 | RAD ---
HISTORY: NG tube placement COMPARISON: 08/08/2017. FINDINGS: The nasogastric tube terminates in the stomach. LUNGS: There are low lung volumes. There is left basilar atelectasis. PLEURA: No significant pleural effusion identified, no pneumothorax apparent. CARDIOVASCULAR: Normal. OSSEOUS STRUCTURES: No significant abnormalities. VISUALIZED UPPER ABDOMEN: Normal. OTHER FINDINGS: None. IMPRESSION: Nasogastric tube terminates in the stomach. No acute findings.
[2017-08-29] MEDS ORDERED: Dextrose 50% SYRINGE Inj (50 ml) ONE (21:30)
[2017-08-29] MEDS ORDERED: (Lantus) Insulin Glargine, Recombinant SC SCH (22:00)
[2017-08-30] MEDS: Dextrose 5%/0.9% NS 1,000 ML IV SCH ×2 (05:43→09:04)
[2017-08-30] MEDS: Levothyroxine 125 MCG TAB PO SCH (06:01)
--- NOTE | 2017-08-30 07:24 | CP.PCM.PN ---
<Rupesh Sahu - Last Filed: 08/30/17 07:21> Subjective - Date & Time of Evaluation Date of Evaluation: 08/30/17 Time of Evaluation: 07:22 - Subjective Subjective: PGY1 Medicine Note for Dr. Valle Patient was seen and examined at bedside this morning. Patient appears to be in no pain or acute distress. She is still non-verbal, not responding to any questions. ROS unattainable. Objective - Vital Signs/Intake and Output Vital Signs (last 24 hours): Temp Pulse Resp BP Pulse Ox 99 F 102 H 20 167/85 H 98 08/30/17 04:08 08/30/17 04:08 08/30/17 04:08 08/30/17 04:08 08/30/17 04:08 Intake and Output: 08/30/17 08/30/17 06:59 18:59 Intake Total 920 Output Total 0 Balance 920 - Medications Medications: Current Medications Aspirin (Ecotrin) 81 mg PO DAILY [facility] Last Admin: 08/29/17 09:21 Dose: Not Given Efavirenz/Emtricitabine/Tenofovir (Atripla 600 Mg-200 Mg-300 Mg) 1 tab PO DAILY [facility] Last Admin: 08/29/17 09:21 Dose: Not Given Famotidine (Pepcid) 20 mg PO DAILY [facility] Last Admin: 08/29/17 09:21 Dose: Not Given Hydralazine HCl (Apresoline) 10 mg IVP Q6H PRN PRN Reason: Systolic Blood Pressure Dextrose/Sodium Chloride (Dextrose 5%/0.9% Ns 1000 Ml) 1,000 mls @ 50 mls/hr IV .Q20H [facility] Last Admin: 08/30/17 05:43 Dose: Not Given Fluconazole (Diflucan Iv 100 Mg/50 Ml Ns) 50 mls @ 100 mls/hr IVPB DAILY [facility] Last Admin: 08/29/17 11:34 Dose: 100 mls/hr Valproate Sodium 250 mg/ (Sodium Chloride) 102.5 mls @ 100 mls/hr IVPB DAILY [facility] Insulin Aspart (Novolog) 0 unit SC ACHS [facility] PRN Reason: Protocol Last Admin: 08/29/17 22:00 Dose: Not Given Insulin Aspart (Novolog) 6 unit SC AC [facility] Last Admin: 08/29/17 17:32 Dose: 6 unit Insulin Glargine (Lantus) 12 unit SC HS [facility] Last Admin: 08/29/17 22:00 Dose: Not Given Levothyroxine Sodium (Synthroid) 125 mcg PO DAILY@0630 [facility] Last Admin: 08/30/17 06:01 Dose: 125 mcg Ondansetron HCl (Zofran Inj) 4 mg IVP Q6H PRN PRN Reason: Nausea/Vomiting Last Admin: 08/27/17 14:44 Dose: 4 mg Sucralfate (Carafate Oral Susp) 1 gm PO ACBHS [facility] Last Admin: 08/29/17 21:55 Dose: 1 gm Trimethoprim/Sulfamethoxazole (Bactrim Ds Tab) 1 tab PO MWF [facility] Last Admin: 08/29/17 09:22 Dose: Not Given - Labs Labs: 08/29/17 14:01 08/29/17 14:01 PT 11.2 SECONDS (9.7-12.2) 08/08/17 10:10 INR 1.0 08/08/17 10:10 APTT 25 SECONDS (21-34) 08/08/17 10:10 - Constitutional Appears: Non-toxic, No Acute Distress - Head Exam Head Exam: ATRAUMATIC, NORMOCEPHALIC - Eye Exam Eye Exam: EOMI - ENT Exam ENT Exam: Mucous Membranes Moist - Respiratory Exam Respiratory Exam: Clear to Ausculation Bilateral, NORMAL BREATHING PATTERN. absent: Accessory Muscle Use, Chest Wall Tenderness, Decreased Breath Sounds, Wheezes, Respiratory Distress - Cardiovascular Exam Cardiovascular Exam: REGULAR RHYTHM, +S1, +S2 - GI/Abdominal Exam GI & Abdominal Exam: Soft, Normal Bowel Sounds. absent: Distended, Firm, Guarding, Rigid, Tenderness - Neurological Exam Neurological Exam: Altered (non-verbal) - Psychiatric Exam Psychiatric exam: Flat Affect - Skin Skin Exam: Dry, Warm Assessment and Plan - Assessment and Plan (Free Text) Assessment: Acute Encephalopathy possible new onset Seizure (08/22) Patient's mental status appears decreased today. She is still not answering many questions and has a flat affect. Will continue to monitor. 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 Neck MRA 08/29/17: No significant stenosis seen in the visualized bilateral common or internal carotid arteries. Mild right ICA proximal stenosis is identified with plaque identified at the right carotid bulb. Widely patent bilateral common carotids but otherwise, as imaged. Symmetric vertebrobasilar circulation. Head MRA 08/29/17: Suboptimal diagnostic quality due to motion degraded images, allowing for this, no occlusion. Apparent narrowing in bilateral M1 segments could be related to motion artifacts. Patient potentially had a seizure over night. CT (08/22) was negative for any acute findings. Brain MRI was ordered for f/u. patient has not had any more events since then Neurology Consulted, Dr. Denney --> Help appreciated; states that all changes in AMS are most likely due to AIDS Brain MRI w/o contrast(08/22) - Mild diffuse/confluent nonspecific white matter changes as described. Findings are of uncertain etiology though could represent sequela of HIV encephalopathy. PML not excluded. See above discussion for additional differential diagnostic considerations. Questionable secretions/opacification of exuberantly aerated mastoid air cells ramyfing into the left petrous apex however the possibility apical petrositis or small the left petrous CT apex cholesterol granuloma. Repeat Head CT w/o contrast 08/28/17 - Significant motion artifact limits this exam however interval edema is identified at the right greater than left basal ganglia and thalami as well as the bilateral occipital lobes and the right parietal lobe. Is difficult to determine definitively though this is vasogenic or cytotoxic however embolic infarction is questioned. Given the basal ganglia and thalami being affected focally, and anoxic insult is included in the differential diagnosis or even though there is no global loss of vaca-white matter differentiation and edema in this patient. Infectious or metabolic etiologies are not excluded but are not favored. * EEG ordered for morning of 08/23: This is a probably normal EEG. There was increased beta activity noticed intermittently. This could be a normal finding. No focal slowing no seizure like activity was observed. Correlation with clinical findings is needed. 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 Opportunistic Infection ID Dr. Meneses --> help appreciated * Continue Diflucan, bactrim * Started Atripla started 08/27/17 - CT head 08/11 - Negative - MRI 08/12 - unremarkable - LDH - 478 - CD4 - 72 (AIDS confirmed) -->repeat 110 - HIV-1 RNA Qnt (RT-PCR) - 5.80 high - Viral Load: Must r/o infectious causes * CMV - IgG > 10; IgM <30; Dennotes previous infection, no acute infection * Crypto - <1:2 * RPR - nonreactive * Toxoplasma - IgG < 7.2; IgM < 8 Bandemia/elevated WBC/resolved AIDS * Dr. Meneses recs * Bactrim DS 1 tab PO M/W/F * Atripla [id number](Efavirenz/Emtricitabine/Teno) 1 tab PO daily - script written and placed in chart for pt's to pecan picker and fill, so when patient is discharged to [facility], he will be able to take her medication with her, as [facility] does not usually provide HARRT medications. Dr. Sahu discussed with pt's , Emiliano Hoang, on the phone. He stated he understands and will pecan picker prescription to fill it by 08/28. * Neupogen given 08/25 * HIV screen Positive, CD4 = 72, repeat CD4 = 110 * hep panel negative * Will f/u recs for HARRT therapy upon discharge. * Patient will need to follow up with HIV clinic for continuation of HARRT therapy as out patient. * [facility] - Clinic at [address], [place] * [facility] - Clinic at [address], [place] Phone Anemia; most likely 2/2 to advanced AIDS * Improved to Hgb of 12.7 from 7.1 - patient given 2 units pRBCs on 08/26/17 ( consent given by , Emiliano Hoang, on phone) * continue to monitor Diabetes hypoglycemia protocol RISS only for now Endo consulted, Dr. Nesha Donaldson; appreciate recs * Lantus changed to 12 units HS * Novolog changed to 6 units AC * ISS low HgA1C - 7.1 accuchecks q6h Continue to monitor Hyponatremia; resolved * STOPPED medications due to potential s/e of hyponatremia * Zoloft, Trazodone and IV fluids. * Nephro Consult, Dr. Wong - help appreciated, f/u recs * urine sodium 113 --> 43 * urine osmol 502 --> 176 * serum osmol 276 * will continue to monitor Dysphagia; resolved Chest CT * particulate matter, possibly food, identified within the esophageal lumen intermixed with gas. * Incidental 6mm nodule within superior right breast. CXR * no acute cardiopulmonary disease Neck soft tissue CT * Abnormal circumferential thickening noted of the cervical esophagus. findings could be due to reflux esophagitis but esophageal carcinoma is not excluded. GI consulted, Dr. 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 Prophylactic Care * Heparin 5000u sc q8h - DC'ed due to anemia * SCDs for DVT ppx * Pepcid 20 ivp daily * Fall precautions * 1-1 sitter Patient and patient's are the only people that know of the patient's HIV + status. was informed of AIDS diagnosis. The patient and her do not want anyone else to know of the patient's diagnosis. If patient's sons or mother are in the room, do not discuss patient's diagnosis with them!!! Contact number for patient's (Emiliano Hoang) is wrong in the chart. His cell phone number is [phone]. Will discuss with Dr. Tori Sahu PGY1 <Drew Valle - Last Filed: 08/30/17 09:11> Objective - Vital Signs/Intake and Output Vital Signs (last 24 hours): Temp Pulse Resp BP Pulse Ox 98.6 F 118 H 18 185/49 H 95 08/30/17 07:05 08/30/17 07:05 08/30/17 07:05 08/30/17 07:05 08/30/17 07:05 Intake and Output: 08/30/17 08/30/17 06:59 18:59 Intake Total 920 Output Total 0 Balance 920 - Medications Medications: Current Medications Aspirin (Ecotrin) 81 mg PO DAILY [facility] Last Admin: 08/29/17 09:21 Dose: Not Given Efavirenz/Emtricitabine/Tenofovir (Atripla 600 Mg-200 Mg-300 Mg) 1 tab PO DAILY [facility] Last Admin: 08/29/17 09:21 Dose: Not Given Famotidine (Pepcid) 20 mg PO DAILY [facility] Last Admin: 08/29/17 09:21 Dose: Not Given Hydralazine HCl (Apresoline) 10 mg IVP Q6H PRN PRN Reason: Systolic Blood Pressure Last Admin: 08/30/17 08:26 Dose: 10 mg Dextrose/Sodium Chloride (Dextrose 5%/0.9% Ns 1000 Ml) 1,000 mls @ 50 mls/hr IV .Q20H [facility] Last Admin: 08/30/17 05:43 Dose: Not Given Fluconazole (Diflucan Iv 100 Mg/50 Ml Ns) 50 mls @ 100 mls/hr IVPB DAILY [facility] Last Admin: 08/29/17 11:34 Dose: 100 mls/hr Valproate Sodium 250 mg/ (Sodium Chloride) 102.5 mls @ 100 mls/hr IVPB DAILY [facility] Insulin Aspart (Novolog) 0 unit SC [facility] PRN Reason: Protocol Last Admin: 08/30/17 07:47 Dose: Not Given Insulin Aspart (Novolog) 6 unit SC AC [facility] Last Admin: 08/30/17 08:26 Dose: 6 unit Insulin Glargine (Lantus) 12 unit SC HS [facility] Last Admin: 08/29/17 22:00 Dose: Not Given Levothyroxine Sodium (Synthroid) 125 mcg PO DAILY@0630 [facility] Last Admin: 08/30/17 06:01 Dose: 125 mcg Ondansetron HCl (Zofran Inj) 4 mg IVP Q6H PRN PRN Reason: Nausea/Vomiting Last Admin: 08/27/17 14:44 Dose: 4 mg Sucralfate (Carafate Oral Susp) 1 gm PO ACS [facility] Last Admin: 08/29/17 21:55 Dose: 1 gm Trimethoprim/Sulfamethoxazole (Bactrim Ds Tab) 1 tab PO MWF [facility] Last Admin: 08/29/17 09:22 Dose: Not Given - Labs Labs: 08/30/17 07:20 08/30/17 07:20 PT 11.2 SECONDS (9.7-12.2) 08/08/17 10:10 INR 1.0 08/08/17 10:10 APTT 25 SECONDS (21-34) 08/08/17 10:10 Attending/Attestation - Attestation I have personally seen and examined this patient.: Yes I have fully participated in the care of the patient.: Yes I have reviewed all pertinent clinical information, including history, physical exam and plan: Yes Notes (Text): Medical Attending: Patient was seen and examined by me. Agree with the resident note. I spoke with the patient's ( who is currently in the hospital himself being treated for CHF ) and explained to the that the overall prognosis appears very poor. Like yesterday she is able to open eyes when name is called, however she does not respond to commands and does not follow any commands. She had another recent MRI which is again concerning for potential PML. However the serology for JAGUAR virus has returned negative. Reguardless her mental status has been worsening. Per my discussion with pharmacy the HARRT can be crushed and administered with the NGT. I had a long discussion with the and explained to him that the overall prognosis is extremely poor at this time. There is a pending palliative care order. From my discussion with the patient's he wishes she remain full code at this time. Also he does not want the patient's HIV/AIDs status revealed to other family. When the patient was still cognitive she had said the same thing as well. She had NGT placed yesterday, will start Jevity 1. today TID with bolus of 300 cc water as well. She will likley need additional supplements as well. thank you Drew Valle 08/30/17 09:10
[2017-08-30 07:36] LABS: BASO % 0.3 % (0.0-2.0); EOS # 0.1 K/uL (0.0-0.7); EOS % 1.3 % (0.0-4.0); HEMATOCRIT 33.8 % (34.0-47.0); LYMPH % 13.6 % (20.0-40.0); MEAN CELL VOLUME 87.4 fL (81.0-99.0); MEAN CORPUSCULAR HEMOGLOBIN 30.3 pg (27.0-31.0); MEAN CORPUSCULAR HGB CONC 34.7 g/dL (33.0-37.0); MEAN PLATELET VOLUME 8.7 fL (7.2-11.7); MONO # 0.9 K/uL (0.0-0.8); NRBC % 0.1 % (0.0-2.0); RED CELL DISTRIBUTION WIDTH 15.8 % (11.5-14.5); WHITE BLOOD COUNT 7.2 K/uL (4.8-10.8)
[2017-08-30] MEDS: (Novolog) Insulin Aspart, Recombinant 100 u/ml 10 ml vial SC SCH ×8 (07:47→23:00)
[2017-08-30 08:00] LABS: CHLORIDE 104 mmol/L (98-107); SODIUM 135 mmol/L (132-148)
[2017-08-30 08:02] LABS: AST/SGOT 19 U/L (14-36); BILIRUBIN,TOTAL 0.6 mg/dL (0.2-1.3); CARBON DIOXIDE 21 mmol/L (22-30); GFR AFRICAN-AMERICAN > 60
[2017-08-30 08:03] LABS: ALB/GLOB RATIO 0.8 (1.0-2.1); ALKALINE PHOSPHATASE 163 U/L (38-126); TOTAL PROTEIN 6.8 g/dL (6.3-8.3)
[2017-08-30 08:04] LABS: ALT/SGPT 19 U/L (9-52); BLOOD UREA NITROGEN 14 mg/dL (7-17); CALCIUM 8.2 mg/dl (8.6-10.4); GLUCOSE,RANDOM 270 mg/dL (65-105); MAGNESIUM 1.6 mg/dL (1.6-2.3); PHOSPHOROUS 2.2 mg/dL (2.5-4.5)
[2017-08-30] MEDS: Sucralfate 1 gm/10 ml Oral Susp UD PO SCH ×2 (08:05→23:02)
--- NOTE | 2017-08-30 09:31 | RAD ---
HISTORY: NGT placement COMPARISON: Comparison is made to 08/29/2017 FINDINGS: LUNGS: Re- demonstration of mild left lung base opacity likely atelectasis PLEURA: No significant pleural effusion identified, no pneumothorax apparent. CARDIOVASCULAR: Normal. OSSEOUS STRUCTURES: No significant abnormalities. VISUALIZED UPPER ABDOMEN: The NG tube is seen at appropriate position extending to the left upper abdomen. Residual oral contrast in the large bowel is noted. OTHER FINDINGS: None. IMPRESSION: Appropriate position of the NG tube. Small opacity at the left lung base likely atelectasis.
[2017-08-30] MEDS: Efavirenz/Emtricitabine/Teno 1 TAB PO SCH (10:03)
[2017-08-30] MEDS: Valproate 250 MG in Sodium Chloride 0.9% 100 ML IVPB SCH (10:16)
[2017-08-30] MEDS: Fluconazole IV 100mg/50 ml NS 50 ML IVPB SCH (10:17)
--- NOTE | 2017-08-30 11:03 | PN ---
ENDOCRINOLOGY FOLLOWUP NOTE LOCATION: Room #657. This is a 57-year-old female who continues to have extreme glycemic fluctuations because of the very nil and suboptimal meal portions as noted. The basal insulin was held last night because of glucose values of 27 mg/dL with supervening hyperglycemic accelerations today as expected. Her latest glucose levels have ranged from 148 to 282 mg/dL. Her latest chemistry showed a BUN of 18, sodium 135, potassium 4.0, chloride 104, CO2 of 21, glucose 270 and creatinine 1.0. So at this time, we will modify once again her basal and bolus insulin regimen and lower the NovoLog to 4 units subQ t.i.d. before meals as ordered. We will titrate incrementally as indicated to optimize metabolic control. We will also lower the basal insulin with Lantus to be lowered down to 6 units subQ at bedtime daily, to start tonight. We will titrate incrementally as indicated to optimize metabolic control. We will follow and advise accordingly. Nesha Donaldson MD
[2017-08-30] MEDS ORDERED: (Novolog) Insulin Aspart, Recombinant 100 u/ml 10 ml vial SC SCH (11:30)
--- NOTE | 2017-08-30 13:11 | CP.PCM.PN ---
Subjective - Date & Time of Evaluation Date of Evaluation: 08/30/17 Time of Evaluation: 12:55 - Subjective Subjective: Mrs. Morel was seen and examined today at bedside. She continues to decline in mental status and neurologic function. Her MRI is consistent with PML, or possibly lymphoma. However, JAGUAR virus was low when tested. I spoke to the patient's and explained the current situation and the likely poor prognosis. He informed me that the patient's son was coming with the understanding that his mother is not doing well medically. Objective - Vital Signs/Intake and Output Vital Signs (last 24 hours): Temp Pulse Resp BP Pulse Ox 98.6 F 118 H 18 185/49 H 95 08/30/17 07:05 08/30/17 07:05 08/30/17 07:05 08/30/17 07:05 08/30/17 07:05 Intake and Output: 08/30/17 08/30/17 06:59 18:59 Intake Total 920 Output Total 0 Balance 920 - Medications Medications: Current Medications Aspirin (Ecotrin) 81 mg PO DAILY [facility] Last Admin: 08/30/17 10:03 Dose: 81 mg Efavirenz/Emtricitabine/Tenofovir (Atripla 600 Mg-200 Mg-300 Mg) 1 tab PO DAILY [facility] Last Admin: 08/30/17 10:03 Dose: 1 tab Famotidine (Pepcid) 20 mg PO DAILY [facility] Last Admin: 08/30/17 10:03 Dose: 20 mg Hydralazine HCl (Apresoline) 10 mg IVP Q6H PRN PRN Reason: Systolic Blood Pressure Last Admin: 08/30/17 08:26 Dose: 10 mg Dextrose/Sodium Chloride (Dextrose 5%/0.9% Ns 1000 Ml) 1,000 mls @ 50 mls/hr IV .Q20H [facility] Last Admin: 08/30/17 09:04 Dose: 50 mls/hr Fluconazole (Diflucan Iv 100 Mg/50 Ml Ns) 50 mls @ 100 mls/hr IVPB DAILY [facility] Last Admin: 08/30/17 10:17 Dose: 100 mls/hr Valproate Sodium 250 mg/ (Sodium Chloride) 102.5 mls @ 100 mls/hr IVPB DAILY [facility] Last Admin: 08/30/17 10:16 Dose: 100 mls/hr Insulin Aspart (Novolog) 0 unit SC ACHS [facility] PRN Reason: Protocol Last Admin: 08/30/17 12:46 Dose: 2 unit Insulin Aspart (Novolog) 4 unit SC AC [facility] Last Admin: 08/30/17 12:30 Dose: 4 unit Insulin Glargine (Lantus) 6 unit SC HS [facility] Levothyroxine Sodium (Synthroid) 125 mcg PO DAILY@0630 [facility] Last Admin: 08/30/17 06:01 Dose: 125 mcg Ondansetron HCl (Zofran Inj) 4 mg IVP Q6H PRN PRN Reason: Nausea/Vomiting Last Admin: 08/27/17 14:44 Dose: 4 mg Sucralfate (Carafate Oral Susp) 1 gm PO ACBHS [facility] Last Admin: 08/30/17 08:05 Dose: 1 gm Trimethoprim/Sulfamethoxazole (Bactrim Ds Tab) 1 tab PO F [facility] Last Admin: 08/29/17 09:22 Dose: Not Given - Labs Labs: 08/30/17 07:20 08/30/17 07:20 PT 11.2 SECONDS (9.7-12.2) 08/08/17 10:10 INR 1.0 08/08/17 10:10 APTT 25 SECONDS (21-34) 08/08/17 10:10 - Neurological Exam Neurological Exam: Altered Neuro motor strength exam: Left Upper Extremity: 3, Right Upper Extremity: 3, Left Lower Extremity: 3, Right Lower Extremity: 3 Additional comments: Eyes closed. Obtunded. Moves all extremities. Eyelid apraxia. Does not follow any commands. GCS= 9 Assessment and Plan (1) Encephalopathy acute Assessment & Plan: With the JAGUAR virus being low, it is possible that the patient has [employer] Lymphoma. However, the sample was not from the CSF and we may need to obtain another sample for diagnosis. Another possibility is that this could be PML immune reconstitution inflammatory syndrome. In both cases, IV steroids may help her improve clinically and are worth a try since the alternative is doing nothing. If we were to start steroids, the patient should be placed on an insulin drip since her serum glucose is unmanageable as it is. This will have to be discussed with the primary team. For now, I recommend obtaining CSF under fluoroscopy to test for JAGUAR virus and/ or other possible underlying causes. Status: Acute
[2017-08-30] MEDS ORDERED: Dexamethasone 4 mg/1 ml IVP ONE (13:47)
[2017-08-30] MEDS: Dexamethasone 4 mg/1 ml IVP SCH (18:19)
[2017-08-30] MEDS ORDERED: (Lantus) Insulin Glargine, Recombinant SC SCH ×2 (22:00)
[2017-08-31] MEDS: Dexamethasone 4 mg/1 ml IVP SCH ×4 (02:18→18:39)
[2017-08-31] MEDS: Levothyroxine 125 MCG TAB PO SCH (06:09)
[2017-08-31 07:29] LABS: BASO % 0.3 % (0.0-2.0); HEMATOCRIT 32.4 % (34.0-47.0); LYMPH # 0.5 K/uL (1.0-4.3); LYMPH % 17.1 % (20.0-40.0); MEAN CELL VOLUME 88.9 fL (81.0-99.0); MEAN CORPUSCULAR HGB CONC 33.7 g/dL (33.0-37.0); MEAN PLATELET VOLUME 9.5 fL (7.2-11.7); MONO # 0.1 K/uL (0.0-0.8); MONO % 4.4 % (0.0-10.0); NRBC % 0.1 % (0.0-2.0); RED CELL DISTRIBUTION WIDTH 15.7 % (11.5-14.5); WHITE BLOOD COUNT 2.9 K/uL (4.8-10.8)
[2017-08-31 07:47] LABS: CHLORIDE 103 mmol/L (98-107)
[2017-08-31 07:48] LABS: SODIUM 132 mmol/L (132-148)
[2017-08-31 07:50] LABS: BILIRUBIN,TOTAL 0.5 mg/dL (0.2-1.3); CARBON DIOXIDE 20 mmol/L (22-30); GFR AFRICAN-AMERICAN > 60
[2017-08-31 07:51] LABS: ALB/GLOB RATIO 0.7 (1.0-2.1); ALKALINE PHOSPHATASE 136 U/L (38-126); ALT/SGPT 16 U/L (9-52); AST/SGOT 14 U/L (14-36); BLOOD UREA NITROGEN 26 mg/dL (7-17); CALCIUM 7.9 mg/dl (8.6-10.4); MAGNESIUM 1.8 mg/dL (1.6-2.3); PHOSPHOROUS 2.4 mg/dL (2.5-4.5); TOTAL PROTEIN 6.1 g/dL (6.3-8.3)
[2017-08-31] MEDS: Sucralfate 1 gm/10 ml Oral Susp UD PO SCH ×2 (08:06→22:48)
--- NOTE | 2017-08-31 08:06 | CP.PCM.PN ---
Subjective - Date & Time of Evaluation Date of Evaluation: 08/31/17 Time of Evaluation: 07:45 - Subjective Subjective: I had a very long conversation with the patient's and son and daughter in law yesterday. Patient's platelet count decreased to 15K this morning. Started on decadron IV yesterday. I spoke with and got consent to transfuse platelets. Pending hematology evaluation She may need an LP to get CSF to test for JAGUAR virus, however at this moment her platelets are slowly decreasing. On exam she is able to open her eyes when her name is called. However does not respond to any commands. Her NGT feeds changed to be continuous at 35 cc / hr. Overall prognosis remains poor at this time Objective - Vital Signs/Intake and Output Vital Signs (last 24 hours): Temp Pulse Resp BP Pulse Ox 97.9 F 70 20 145/88 95 08/30/17 23:26 08/31/17 00:00 08/30/17 23:26 08/30/17 23:26 08/30/17 23:26 Intake and Output: 08/31/17 08/31/17 06:59 18:59 Intake Total 1830 Output Total 1000 Balance 830 - Medications Medications: Current Medications Aspirin (Ecotrin) 81 mg PO DAILY [facility] Last Admin: 08/30/17 10:03 Dose: 81 mg Dexamethasone (Decadron Inj) 4 mg IVP Q6H [facility]ESS[facility] Last Admin: 08/31/17 06:08 Dose: 4 mg Efavirenz/Emtricitabine/Tenofovir (Atripla 600 Mg-200 Mg-300 Mg) 1 tab PO DAILY [facility]ESS[facility] Last Admin: 08/30/17 10:03 Dose: 1 tab Famotidine (Pepcid) 20 mg PO DAILY [facility]ESS[facility] Last Admin: 08/30/17 10:03 Dose: 20 mg Hydralazine HCl (Apresoline) 10 mg IVP Q6H PRN PRN Reason: Systolic Blood Pressure Last Admin: 08/30/17 20:52 Dose: 10 mg Fluconazole (Diflucan Iv 100 Mg/50 Ml Ns) 50 mls @ 100 mls/hr IVPB DAILY [facility]ESS[facility] Last Admin: 08/30/17 10:17 Dose: 100 mls/hr Valproate Sodium 250 mg/ (Sodium Chloride) 102.5 mls @ 100 mls/hr IVPB DAILY [facility] Last Admin: 08/30/17 10:16 Dose: 100 mls/hr Insulin Aspart (Novolog) 0 unit SC [facility] PRN Reason: Protocol Last Admin: 08/30/17 23:00 Dose: 2 unit Insulin Aspart (Novolog) 8 unit SC AC [facility] Last Admin: 08/30/17 18:22 Dose: 8 unit Insulin Glargine (Lantus) 12 unit SC [facility] Last Admin: 08/30/17 22:59 Dose: 12 units Levothyroxine Sodium (Synthroid) 125 mcg PO DAILY@0630 [facility] Last Admin: 08/31/17 06:09 Dose: 125 mcg Morphine Sulfate (Morphine) 1 mg IVP Q4 PRN PRN Reason: Pain, Mild (1-3) Last Admin: 08/30/17 23:01 Dose: 1 mg Ondansetron HCl (Zofran Inj) 4 mg IVP Q6H PRN PRN Reason: Nausea/Vomiting Last Admin: 08/27/17 14:44 Dose: 4 mg Sucralfate (Carafate Oral Susp) 1 gm PO [facility] Last Admin: 08/30/17 23:02 Dose: 1 gm Trimethoprim/Sulfamethoxazole (Bactrim Ds Tab) 1 tab PO [facility] [place] Admin: 08/29/17 09:22 Dose: Not Given - Labs Labs: 08/31/17 07:15 08/30/17 07:20 PT 11.2 SECONDS (9.7-12.2) 08/08/17 10:10 INR 1.0 08/08/17 10:10 APTT 25 SECONDS (21-34) 08/08/17 10:10 - Constitutional Appears: Confused, Chronically Ill - ENT Exam ENT Exam: Mucous Membranes Dry - Respiratory Exam Respiratory Exam: Decreased Breath Sounds, NORMAL BREATHING PATTERN - Cardiovascular Exam Cardiovascular Exam: REGULAR RHYTHM - GI/Abdominal Exam GI & Abdominal Exam: Soft, Normal Bowel Sounds - Neurological Exam Neurological Exam: Altered - Psychiatric Exam Psychiatric exam: Flat Affect - Skin Skin Exam: Dry, Normal Color, Warm Assessment and Plan - Assessment and Plan (Free Text) Assessment: AIDS, acute encephalopathy 08/31: She is somulent. Able to open eyes, random slow movements of arms and legs. Not following any commands. She was started on IV decardon yesterday. She will likley need LP to aquire CSF in the future to again test for JAGUAR virus since imaging via MRI is suggesting progressive multifocal leukoencephalopathy. Previous testing of JAGUAR virus were negative. This being said her platelet count is very low, transfusing 1 unit today. Pending hematology evaluation. 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 Neck MRA 08/29/17: No significant stenosis seen in the visualized bilateral common or internal carotid arteries. Mild right ICA proximal stenosis is identified with plaque identified at the right carotid bulb. Widely patent bilateral common carotids but otherwise, as imaged. Symmetric vertebrobasilar circulation. Head MRA 08/29/17: Suboptimal diagnostic quality due to motion degraded images, allowing for this, no occlusion. Apparent narrowing in bilateral M1 segments could be related to motion artifacts. Patient potentially had a seizure over night. CT (08/22) was negative for any acute findings. Brain MRI was ordered for f/u. patient has not had any more events since then Neurology Consulted, Dr. Denney --> Help appreciated; states that all changes in AMS are most likely due to AIDS Brain MRI w/o contrast(08/22) - Mild diffuse/confluent nonspecific white matter changes as described. Findings are of uncertain etiology though could represent sequela of HIV encephalopathy. PML not excluded. See above discussion for additional differential diagnostic considerations. Questionable secretions/opacification of exuberantly aerated mastoid air cells ramyfing into the left petrous apex however the possibility apical petrositis or small the left petrous CT apex cholesterol granuloma. Repeat Head CT w/o contrast 08/28/17 - Significant motion artifact limits this exam however interval edema is identified at the right greater than left basal ganglia and thalami as well as the bilateral occipital lobes and the right parietal lobe. Is difficult to determine definitively though this is vasogenic or cytotoxic however embolic infarction is questioned. Given the basal ganglia and thalami being affected focally, and anoxic insult is included in the differential diagnosis or even though there is no global loss of vaca-white matter differentiation and edema in this patient. Infectious or metabolic etiologies are not excluded but are not favored. * EEG ordered for morning of 08/23: This is a probably normal EEG. There was increased beta activity noticed intermittently. This could be a normal finding. No focal slowing no seizure like activity was observed. Correlation with clinical findings is needed. * JAGUAR virus <500 = negative * HLA-B57:01 sensitivity, awaiting results * Started on Depakote 250mg PO daily --> patient unable to swallow, NGT placed and started on valproate 250mg IVP daily AMS 2/ AIDS Dementia Vs. Opportunistic Infection ID Dr. Meneses --> help appreciated * Continue Diflucan, bactrim * Started Atripla started 08/27/17 - CT head 08/11 - Negative - MRI 08/12 - unremarkable - LDH - 478 - CD4 - 72 (AIDS confirmed) -->repeat 110 - HIV-1 RNA Qnt (RT-PCR) - 5.80 high - Viral Load: Must r/o infectious causes * CMV - IgG > 10; IgM <30; Dennotes previous infection, no acute infection * Crypto - <1:2 * RPR - nonreactive * Toxoplasma - IgG < 7.2; IgM < 8 AIDS 08/31: On Atripla at this time. This is being crushed and given via NGT * Dr. Meneses recs * Bactrim DS 1 tab PO M/W/F * Atripla [id number](Efavirenz/Emtricitabine/Teno) 1 tab PO daily - script written and placed in chart for pt's to roll picker and fill, so when patient is discharged to [facility], he will be able to take her medication with her, as [facility] does not usually provide HARRT medications. Dr. Sahu discussed with pt's , Emiliano Hoang, on the phone. He stated he understands and will roll picker prescription to fill it by 08/28. * Neupogen given 08/25 * HIV screen Positive, CD4 = 72, repeat CD4 = 110 * hep panel negative * Will f/u recs for HARRT therapy upon discharge. * Patient will need to follow up with HIV clinic for continuation of HARRT therapy as out patient. * [facility] ([facility] - Clinic at [address], [place] * [facility] - Clinic at [address], [place] Phone Anemia; most likely 2/2 to advanced AIDS 08/31: Patient's platelet count continues to decrease, conset recived for one unit of platelets to be given * Improved to Hgb of 12.7 from 7.1 - patient given 2 units pRBCs on 08/26/17 ( consent given by , Emiliano Hoang, on phone) * continue to monitor Diabetes hypoglycemia protocol RISS only for now Endo consulted, Dr. Nesha Donaldson; appreciate recs * Lantus changed to 12 units HS * Novolog changed to 6 units AC * ISS low HgA1C - 7.1 accuchecks q6h Continue to monitor Hyponatremia; resolved * STOPPED medications due to potential s/e of hyponatremia * Zoloft, Trazodone and IV fluids. * Nephro Consult, Dr. Wong - help appreciated, f/u recs * urine sodium 113 --> 43 * urine osmol 502 --> 176 * serum osmol 276 * will continue to monitor Dysphagia; resolved Chest CT * particulate matter, possibly food, identified within the esophageal lumen intermixed with gas. * Incidental 6mm nodule within superior right breast. CXR * no acute cardiopulmonary disease Neck soft tissue CT * Abnormal circumferential thickening noted of the cervical esophagus. findings could be due to reflux esophagitis but esophageal carcinoma is not excluded. GI consulted, Dr. 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 Prophylactic Care * Heparin 5000u sc q8h - DC'ed due to anemia * SCDs for DVT ppx * Pepcid 20 ivp daily * Fall precautions * 1-1 sitter
[2017-08-31] MEDS: (Novolog) Insulin Aspart, Recombinant 100 u/ml 10 ml vial SC SCH ×7 (08:07→22:45)
[2017-08-31 08:14] LABS: GLUCOSE,RANDOM 483 mg/dL (65-105)
[2017-08-31] MEDS: Fluconazole IV 100mg/50 ml NS 50 ML IVPB SCH (09:04)
[2017-08-31] MEDS: Valproate 250 MG in Sodium Chloride 0.9% 100 ML IVPB SCH (09:19)
[2017-08-31] MEDS: Efavirenz/Emtricitabine/Teno 1 TAB PO SCH (09:19)
--- NOTE | 2017-08-31 13:04 | PN ---
ENDOCRINOLOGY FOLLOWUP NOTE LOCATION: Room #657. This is a 57-year-old female with recent uncontrolled type 1 insulin-dependent diabetes with progressive neurological deterioration and has been evaluated to have possible aggressive multifocal leukoencephalopathy, as noted. She has been started on empirical management with high-dose steroid therapy as given with Decadron, currently on 4 mg IV every 6 hours as ordered. Expected hyperglycemic accelerations have supervened and glucose levels have ranged from 393 to 415 mg/dL. So at this time, we will continue the modified Humalog, given as 12 units subQ t.i.d. before meals as ordered. We will increase her Lantus to 40 units subQ at bedtime daily, to start tonight. We will titrate incrementally as indicated to optimize metabolic control. We will follow and advise accordingly. Nesha Donaldson MD
--- NOTE | 2017-08-31 15:08 | PN ---
LOCATION: Room #657. SUBJECTIVE: This is a 57-year-old female with recent uncontrolled type 1 insulin-dependant diabetes, now developing extreme sub-glycemic fluctuation overnight with hyperglycemic accelerations today as noted. Her glucose levels have ranged from 318 to 347 and 415 mg/dL. So at this time, we will modify once again her basal and bolus insulin regimen as her oral intake has improved accordingly and we will increase her Novolog to 6 units subQ t.i.d. before meals, to start today as ordered. We will increase the Lantus to 12 units subQ at bedtime daily, to start tonight. We will obtain serial chemistry and supplement accordingly as needed. We will follow with you. Nesha Donaldson MD
[2017-08-31] MEDS ORDERED: Dextrose 50% SYRINGE Inj (50 ml) IV STA (17:16)
[2017-08-31] MEDS ORDERED: Dextrose 50% SYRINGE Inj (50 ml) ONE (17:17)
[2017-08-31] MEDS: Dextrose 5%/0.45% NS 1,000 ML IV SCH (19:54)
[2017-08-31] MEDS ORDERED: (Lantus) Insulin Glargine, Recombinant SC SCH ×2 (22:00)
[2017-08-31] MEDS ORDERED: (Lantus) Insulin Glargine, Recombinant SC STA (22:44)
[2017-09-01] MEDS: Dexamethasone 4 mg/1 ml IVP SCH ×4 (00:49→17:36)
[2017-09-01] MEDS: Levothyroxine 125 MCG TAB PO SCH (05:46)
[2017-09-01] MEDS: Dextrose 5%/0.45% NS 1,000 ML IV SCH ×2 (05:59→17:55)
--- NOTE | 2017-09-01 07:38 | CP.PCM.PN ---
<Rupesh Sahu - Last Filed: 09/01/17 20:30> Subjective - Date & Time of Evaluation Date of Evaluation: 09/01/17 Time of Evaluation: 07:38 - Subjective Subjective: PGY1 Medicine Note for Dr. Oshea Patient seen and examined at bedside this morning. Patient is very difficult to arouse, only responding to painful stimuli. Spoke to patient's , who is also admitted to the hospital and in the room next door, about the poor prognosis of the patient. He states he understands and appreciates all of our help thus far. Objective - Vital Signs/Intake and Output Vital Signs (last 24 hours): Temp Pulse Resp BP Pulse Ox 98.1 F 101 H 20 163/91 H 97 09/01/17 04:22 09/01/17 04:22 09/01/17 04:22 09/01/17 04:22 09/01/17 04:22 Intake and Output: 09/01/17 09/01/17 06:59 18:59 Intake Total 2150 Output Total 800 Balance 1350 - Medications Medications: Current Medications Aspirin (Ecotrin) 81 mg PO DAILY [facility] Last Admin: 08/31/17 09:04 Dose: 81 mg Dexamethasone (Decadron Inj) 4 mg IVP Q6H [facility] Last Admin: 09/01/17 05:46 Dose: 4 mg Efavirenz/Emtricitabine/Tenofovir (Atripla 600 Mg-200 Mg-300 Mg) 1 tab PO DAILY [facility] Last Admin: 08/31/17 09:19 Dose: 1 tab Famotidine (Pepcid) 20 mg PO DAILY [facility] Last Admin: 08/31/17 09:04 Dose: 20 mg Hydralazine HCl (Apresoline) 10 mg IVP Q6H PRN PRN Reason: Systolic Blood Pressure Last Admin: 08/31/17 23:50 Dose: 10 mg Fluconazole (Diflucan Iv 100 Mg/50 Ml Ns) 50 mls @ 100 mls/hr IVPB DAILY [facility] Last Admin: 08/31/17 09:04 Dose: 100 mls/hr Valproate Sodium 250 mg/ (Sodium Chloride) 102.5 mls @ 100 mls/hr IVPB DAILY [facility] Last Admin: 08/31/17 09:19 Dose: 100 mls/hr Dextrose/Sodium Chloride (Dextrose 5%/0.45% Ns 1000 Ml) 1,000 mls @ 100 mls/hr IV .Q10H [facility] Last Admin: 09/01/17 05:59 Dose: 100 mls/hr Insulin Aspart (Novolog) 0 unit SC [facility] PRN Reason: Protocol Last Admin: 08/31/17 22:45 Dose: Not Given Insulin Aspart (Novolog) 12 unit SC [facility] Last Admin: 08/31/17 17:22 Dose: Not Given Levothyroxine Sodium (Synthroid) 125 mcg PO DAILY@0630 [facility] Last Admin: 09/01/17 05:46 Dose: 125 mcg Morphine Sulfate (Morphine) 1 mg IVP Q4 PRN PRN Reason: Pain, Mild (1-3) Last Admin: 08/31/17 15:55 Dose: 1 mg Ondansetron HCl (Zofran Inj) 4 mg IVP Q6H PRN PRN Reason: Nausea/Vomiting Last Admin: 08/27/17 14:44 Dose: 4 mg Sucralfate (Carafate Oral Susp) 1 gm PO [facility] Last Admin: 08/31/17 22:48 Dose: 1 gm Trimethoprim/Sulfamethoxazole (Bactrim Ds Tab) 1 tab PO [facility] Last Admin: 08/29/17 09:22 Dose: Not Given - Labs Labs: 08/31/17 07:15 08/31/17 07:15 PT 11.2 SECONDS (9.7-12.2) 08/08/17 10:10 INR 1.0 08/08/17 10:10 APTT 25 SECONDS (21-34) 08/08/17 10:10 - Constitutional Appears: No Acute Distress, Chronically Ill - Head Exam Head Exam: NORMOCEPHALIC - Eye Exam Eye Exam: PERRL. absent: Scleral icterus Additional comments: Patient would not open her eyes on exam - ENT Exam ENT Exam: Mucous Membranes Moist - Respiratory Exam Respiratory Exam: Clear to Ausculation Bilateral, NORMAL BREATHING PATTERN - Cardiovascular Exam Cardiovascular Exam: REGULAR RHYTHM, +S1, +S2 - GI/Abdominal Exam GI & Abdominal Exam: Soft, Normal Bowel Sounds. absent: Firm, Guarding, Rigid, Tenderness - Extremities Exam Extremities Exam: absent: Calf Tenderness, Pedal Edema - Neurological Exam Neurological Exam: absent: Awake Additional comments: Patient only responded to painful stimuli. - Skin Skin Exam: Dry, Warm Assessment and Plan - Assessment and Plan (Free Text) Assessment: AIDS, acute encephalopathy 09/01: Patient was unable to be awoken today. She responded to painful stimuli by pulling away and moaning. She was able to move all four extremities. Discussed with patient's that the patient's prognosis is very poor. He states he understands. Patient will likely need a LP to acquire CSF fluid for further eval. Transfused 1 unit of platelets today. f/u EEG discontinued morphine 08/31: She is somulent. Able to open eyes, random slow movements of arms and legs. Not following any commands. She was started on IV decardon yesterday. She will likley need LP to aquire CSF in the future to again test for JAGUAR virus since imaging via MRI is suggesting progressive multifocal leukoencephalopathy. Previous testing of JAGUAR virus were negative. This being said her platelet count is very low, transfusing 1 unit today. Pending hematology evaluation. 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 Neck MRA 08/29/17: No significant stenosis seen in the visualized bilateral common or internal carotid arteries. Mild right ICA proximal stenosis is identified with plaque identified at the right carotid bulb. Widely patent bilateral common carotids but otherwise, as imaged. Symmetric vertebrobasilar circulation. Head MRA 08/29/17: Suboptimal diagnostic quality due to motion degraded images, allowing for this, no occlusion. Apparent narrowing in bilateral M1 segments could be related to motion artifacts. Patient potentially had a seizure over night. CT (08/22) was negative for any acute findings. Brain MRI was ordered for f/u. patient has not had any more events since then Neurology Consulted, Dr. Denney --> Help appreciated; states that all changes in AMS are most likely due to AIDS Brain MRI w/o contrast(08/22) - Mild diffuse/confluent nonspecific white matter changes as described. Findings are of uncertain etiology though could represent sequela of HIV encephalopathy. PML not excluded. See above discussion for additional differential diagnostic considerations. Questionable secretions/opacification of exuberantly aerated mastoid air cells ramyfing into the left petrous apex however the possibility apical petrositis or small the left petrous CT apex cholesterol granuloma. Repeat Head CT w/o contrast 08/28/17 - Significant motion artifact limits this exam however interval edema is identified at the right greater than left basal ganglia and thalami as well as the bilateral occipital lobes and the right parietal lobe. Is difficult to determine definitively though this is vasogenic or cytotoxic however embolic infarction is questioned. Given the basal ganglia and thalami being affected focally, and anoxic insult is included in the differential diagnosis or even though there is no global loss of vaca-white matter differentiation and edema in this patient. Infectious or metabolic etiologies are not excluded but are not favored. * EEG ordered for morning of 08/23: This is a probably normal EEG. There was increased beta activity noticed intermittently. This could be a normal finding. No focal slowing no seizure like activity was observed. Correlation with clinical findings is needed. 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 Opportunistic Infection ID Dr. Meneses --> help appreciated * Continue Diflucan, bactrim * Started Atripla started 08/27/17 - CT head 08/11 - Negative - MRI 08/12 - unremarkable - LDH - 478 - CD4 - 72 (AIDS confirmed) -->repeat 110 - HIV-1 RNA Qnt (RT-PCR) - 5.80 high - Viral Load: Must r/o infectious causes * CMV - IgG > 10; IgM <30; Dennotes previous infection, no acute infection * Crypto - <1:2 * RPR - nonreactive * Toxoplasma - IgG < 7.2; IgM < 8 AIDS 08/31: On Atripla at this time. This is being crushed and given via NGT * Dr. Meneses recs * Bactrim DS 1 tab PO M/W/ * Atripla [id number](Efavirenz/Emtricitabine/Teno) 1 tab PO daily - script written and placed in chart for pt's to picker operator and fill, so when patient is discharged to [facility], he will be able to take her medication with her, as [facility] does not usually provide HARRT medications. Dr. Sahu discussed with pt's , Emiliano Hoang, on the phone. He stated he understands and will picker operator prescription to fill it by 08/28. * Neupogen given 08/25 * HIV screen Positive, CD4 = 72, repeat CD4 = 110 * hep panel negative * Will f/u recs for HARRT therapy upon discharge. * Patient will need to follow up with HIV clinic for continuation of HARRT therapy as out patient. * [facility] - Clinic at [address] [place], [place] * [facility] - Clinic at [address] [place], [place] Phone Anemia; most likely /2 to advanced AIDS 08/31: Patient's platelet count continues to decrease, conset recived for one unit of platelets to be given * Improved to Hgb of 12.7 from 7.1 - patient given 2 units pRBCs on 08/26/17 ( consent given by , Emiliano Hoang, on phone) * continue to monitor Diabetes hypoglycemia protocol RISS only for now Endo consulted, Dr. Nesha Donaldson; appreciate recs * Lantus changed to 12 units HS * Novolog changed to 6 units AC * ISS low HgA1C - 7.1 accuchecks q6h Continue to monitor Hyponatremia; resolved * STOPPED medications due to potential s/e of hyponatremia * Zoloft, Trazodone and IV fluids. * Nephro Consult, Dr. Wong - help appreciated, f/u recs * urine sodium 113 --> 43 * urine osmol 502 --> 176 * serum osmol 276 * will continue to monitor Dysphagia; resolved Chest CT * particulate matter, possibly food, identified within the esophageal lumen intermixed with gas. * Incidental 6mm nodule within superior right breast. CXR * no acute cardiopulmonary disease Neck soft tissue CT * Abnormal circumferential thickening noted of the cervical esophagus. findings could be due to reflux esophagitis but esophageal carcinoma is not excluded. GI consulted, Dr. 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 Prophylactic Care * Heparin 5000u sc q8h - DC'ed due to anemia * SCDs for DVT ppx * Pepcid 20 ivp daily * Fall precautions * 1-1 sitter Case discussed with Dr. Dorie Sahu PGY1 <Ashok Oshea - Last Filed: 09/03/17 16:54> Objective - Vital Signs/Intake and Output Vital Signs (last 24 hours): Temp Pulse Resp BP Pulse Ox 98.5 F 108 H 20 165/94 H 100 09/03/17 16:19 09/03/17 16:19 09/03/17 16:19 09/03/17 16:19 09/03/17 16:19 Intake and Output: 09/03/17 09/03/17 06:59 18:59 Intake Total 80 Output Total 800 Balance -720 - Medications Medications: Current Medications Amlodipine Besylate (Norvasc) 5 mg NG DAILY [facility] Last Admin: 09/03/17 10:35 Dose: 5 mg Aspirin (Ecotrin) 81 mg PO DAILY [facility] Last Admin: 09/03/17 10:35 Dose: 81 mg Dexamethasone (Decadron Inj) 4 mg IVP Q6H [facility] Last Admin: 09/03/17 12:24 Dose: 4 mg Efavirenz/Emtricitabine/Tenofovir (Atripla 600 Mg-200 Mg-300 Mg) 1 tab PO DAILY [facility] Last Admin: 09/03/17 10:35 Dose: 1 tab Famotidine (Pepcid) 20 mg PO DAILY [facility] Last Admin: 09/03/17 10:55 Dose: 20 mg Hydralazine HCl (Apresoline) 10 mg IVP Q6H PRN PRN Reason: Systolic Blood Pressure Last Admin: 09/02/17 21:46 Dose: 10 mg Fluconazole (Diflucan Iv 100 Mg/50 Ml Ns) 50 mls @ 100 mls/hr IVPB DAILY [facility] Last Admin: 09/03/17 10:36 Dose: 100 mls/hr Valproate Sodium 250 mg/ (Sodium Chloride) 102.5 mls @ 100 mls/hr IVPB DAILY [facility] Last Admin: 09/03/17 10:36 Dose: 100 mls/hr Dextrose/Sodium Chloride (Dextrose 5%/0.45% Ns 1000 Ml) 1,000 mls @ 100 mls/hr IV .Q10H [facility] Last Admin: 09/03/17 08:39 Dose: 100 mls/hr Insulin Aspart (Novolog) 0 unit SC [facility] PRN Reason: Protocol Last Admin: 09/03/17 12:30 Dose: Not Given Insulin Detemir (Levemir) 18 unit SC Q12H [facility] Levothyroxine Sodium (Synthroid) 125 mcg PO DAILY@0630 [facility] Last Admin: 09/03/17 05:31 Dose: 125 mcg Ondansetron HCl (Zofran Inj) 4 mg IVP Q6H PRN PRN Reason: Nausea/Vomiting Last Admin: 08/27/17 14:44 Dose: 4 mg Potassium Phos/Sodium Phos (Neutra-Phos) 1 pkt PO TID [facility] Last Admin: 09/03/17 14:03 Dose: 1 pkt Sucralfate (Carafate Oral Susp) 1 gm PO [facility] Last Admin: 09/03/17 06:35 Dose: 1 gm Trimethoprim/Sulfamethoxazole (Bactrim Ds Tab) 1 tab PO MWF [facility] Last Admin: 09/03/17 10:00 Dose: 1 tab - Labs Labs: 09/03/17 07:30 09/03/17 07:30 PT 11.2 SECONDS (9.7-12.2) 08/08/17 10:10 INR 1.0 08/08/17 10:10 APTT 25 SECONDS (21-34) 08/08/17 10:10 Attending/Attestation - Attestation I have personally seen and examined this patient.: Yes I have fully participated in the care of the patient.: Yes I have reviewed all pertinent clinical information, including history, physical exam and plan: Yes Notes (Text): AIDS, acute encephalopathy PLM AMS 2/2 AIDS Dementia Opportunistic Infection Unable to take PO due to ms change on NG tube discuss with family if prolonged may need peg
[2017-09-01] MEDS: (Novolog) Insulin Aspart, Recombinant 100 u/ml 10 ml vial SC SCH ×6 (07:43→21:52)
[2017-09-01] MEDS: Sucralfate 1 gm/10 ml Oral Susp UD PO SCH ×2 (07:47→21:51)
[2017-09-01 08:18] LABS: BASO # 0.1 K/uL (0.0-0.2); BASO % 0.6 % (0.0-2.0); HEMATOCRIT 32.9 % (34.0-47.0); LYMPH # 0.6 K/uL (1.0-4.3); LYMPH % 7.1 % (20.0-40.0); MEAN CELL VOLUME 87.4 fL (81.0-99.0); MEAN CORPUSCULAR HEMOGLOBIN 30.2 pg (27.0-31.0); MEAN CORPUSCULAR HGB CONC 34.6 g/dL (33.0-37.0); MEAN PLATELET VOLUME 8.2 fL (7.2-11.7); MONO # 0.6 K/uL (0.0-0.8); MONO % 7.1 % (0.0-10.0); PLATELET COUNT 62 K/uL (130-400); RED CELL DISTRIBUTION WIDTH 14.9 % (11.5-14.5)
--- NOTE | 2017-09-01 08:24 | CP.PCM.PN ---
Subjective - Date & Time of Evaluation Date of Evaluation: 09/01/17 Time of Evaluation: 08:21 - Subjective Subjective: Ms. Morel was seen and examined at the bedside. She respond to deep pain stimuli , restless. She is on telesitter. She is not in any kind of distress. There is no untoward events overnight. Objective - Vital Signs/Intake and Output Vital Signs (last 24 hours): Temp Pulse Resp BP Pulse Ox 98.1 F 101 H 20 190/90 H 100 09/01/17 07:40 09/01/17 07:40 09/01/17 07:40 09/01/17 07:40 09/01/17 07:40 Intake and Output: 09/01/17 09/01/17 06:59 18:59 Intake Total 2150 Output Total 800 Balance 1350 - Medications Medications: Current Medications Aspirin (Ecotrin) 81 mg PO DAILY [facility] Last Admin: 08/31/17 09:04 Dose: 81 mg Dexamethasone (Decadron Inj) 4 mg IVP Q6H [facility] Last Admin: 09/01/17 05:46 Dose: 4 mg Efavirenz/Emtricitabine/Tenofovir (Atripla 600 Mg-200 Mg-300 Mg) 1 tab PO DAILY [facility] Last Admin: 08/31/17 09:19 Dose: 1 tab Famotidine (Pepcid) 20 mg PO DAILY [facility] Last Admin: 08/31/17 09:04 Dose: 20 mg Hydralazine HCl (Apresoline) 10 mg IVP Q6H PRN PRN Reason: Systolic Blood Pressure Last Admin: 08/31/17 23:50 Dose: 10 mg Fluconazole (Diflucan Iv 100 Mg/50 Ml Ns) 50 mls @ 100 mls/hr IVPB DAILY [facility] Last Admin: 08/31/17 09:04 Dose: 100 mls/hr Valproate Sodium 250 mg/ (Sodium Chloride) 102.5 mls @ 100 mls/hr IVPB DAILY [facility] Last Admin: 08/31/17 09:19 Dose: 100 mls/hr Dextrose/Sodium Chloride (Dextrose 5%/0.45% Ns 1000 Ml) 1,000 mls @ 100 mls/hr IV .Q10H [facility] Last Admin: 09/01/17 05:59 Dose: 100 mls/hr Insulin Aspart (Novolog) 0 unit SC [facility] PRN Reason: Protocol Last Admin: 09/01/17 07:43 Dose: Not Given Insulin Aspart (Novolog) 12 unit SC AC [facility] Last Admin: 09/01/17 07:47 Dose: 12 unit Levothyroxine Sodium (Synthroid) 125 mcg PO DAILY@0630 [facility] Last Admin: 09/01/17 05:46 Dose: 125 mcg Morphine Sulfate (Morphine) 1 mg IVP Q4 PRN PRN Reason: Pain, Mild (1-3) Last Admin: 08/31/17 15:55 Dose: 1 mg Ondansetron HCl (Zofran Inj) 4 mg IVP Q6H PRN PRN Reason: Nausea/Vomiting Last Admin: 08/27/17 14:44 Dose: 4 mg Sucralfate (Carafate Oral Susp) 1 gm PO ACBHS [facility] Last Admin: 09/01/17 07:47 Dose: 1 gm Trimethoprim/Sulfamethoxazole (Bactrim Ds Tab) 1 tab PO F [facility] Last Admin: 08/29/17 09:22 Dose: Not Given - Labs Labs: 08/31/17 07:15 08/31/17 07:15 PT 11.2 SECONDS (9.7-12.2) 08/08/17 10:10 INR 1.0 08/08/17 10:10 APTT 25 SECONDS (21-34) 08/08/17 10:10 - Constitutional Appears: No Acute Distress - Head Exam Head Exam: ATRAUMATIC, NORMAL INSPECTION, NORMOCEPHALIC - Neurological Exam Additional comments: She is restless in bed, responsive to pain stimuli, unable to do other neuro assessment. Assessment and Plan (1) Encephalopathy acute Assessment & Plan: Case discussed with Dr. Denney, continue all current medica, physical, and occupational therapies.Recommend obtaining CSF under fluoroscopy to test for JAGUAR virus and/or other possible underlying causes Status: Acute
[2017-09-01 08:45] LABS: CHLORIDE 100 mmol/L (98-107); SODIUM 132 mmol/L (132-148)
[2017-09-01 08:46] LABS: POTASSIUM 3.2 mmol/L (3.6-5.2)
[2017-09-01] MEDS: Tmp-Smz 800 mg-160 mg DS Tab PO SCH (08:46)
[2017-09-01 08:48] LABS: ALB/GLOB RATIO 0.8 (1.0-2.1); ALKALINE PHOSPHATASE 131 U/L (38-126); AST/SGOT 21 U/L (14-36); BILIRUBIN,TOTAL 0.5 mg/dL (0.2-1.3); BLOOD UREA NITROGEN 28 mg/dL (7-17); CARBON DIOXIDE 22 mmol/L (22-30); GFR AFRICAN-AMERICAN > 60; GLUCOSE,RANDOM 254 mg/dL (65-105); PHOSPHOROUS 1.5 mg/dL (2.5-4.5); TOTAL PROTEIN 6.9 g/dL (6.3-8.3)
[2017-09-01 08:49] LABS: ALT/SGPT 22 U/L (9-52); CALCIUM 8.5 mg/dl (8.6-10.4)
[2017-09-01] MEDS: Efavirenz/Emtricitabine/Teno 1 TAB PO SCH (09:00)
[2017-09-01] MEDS: Valproate 250 MG in Sodium Chloride 0.9% 100 ML IVPB SCH (09:01)
[2017-09-01 09:48] LABS: TOTAL CELLS COUNTED 100
[2017-09-01 09:49] LABS: NEUTROPHIL 73 % (50-75)
[2017-09-01 09:50] LABS: LARGE PLATELETS PRESENT
[2017-09-01] MEDS: Fluconazole IV 100mg/50 ml NS 50 ML IVPB SCH (10:29)
--- NOTE | 2017-09-01 14:57 | CP.PCM.CON ---
History of Present Illness - History of Present Illness History of Present Illness: Palliative consult Requested by Barry SKINNER Reason: Goals of care Patient is a 57 yo female admitted from [facility] with complains of difficulties swallowing over the last 2 days. Patient reports not being able to even swallow the water, well. Just two days ago patient was DCd from [facility] where she was treated for the same symptoms. The EGD there suggested esophagial ulceration and Antibiotics were initiated. patient reported feeling better, but symptoms returned again. Patient reprots weight los of 20 lb since February. Upon this admission the CT soft neck tissue, the head CT and brain MRI , all showed no acute findings. Patient had visual hallucinations reporting " the dog coming out of the pipe". Patient was seen by the psychiatrist and diagnosed with Major Depression. Trazadon and Zoloft suggested. Patient is kept NPO and on artificial feedings via NGT PMH: AIDS, DM, HTN, gastritis, esophagitis, AIDS, LOLIS, was on HD for 4 weeks, porthocath removed 5 days ago Soc. Hx: lives with significant other ( Mr. Emiliano Hoang, who is also at the hospital at present), retired Fam hx: Unknown Review of Systems - Review of Systems All systems: reviewed and no additional remarkable complaints except Review of Systems: Patient responds to painful stimuli only,. Per nursing patient had episodes of restlessness over the night and is on Video watch for safety. All othr systems reviewed and are negative. Past Patient History - Past Medical History & Family History Past Medical History?: Yes - Past Social History Smoking Status: Never Smoked - CARDIAC Hx Hypertension: Yes - PULMONARY Hx Respiratory Disorders: No - NEUROLOGICAL Hx Neurological Disorder: No - HEENT Hx HEENT Problems: No - RENAL Hx Chronic Kidney Disease: No - ENDOCRINE/METABOLIC Hx Hypothyroidism: Yes - HEMATOLOGICAL/ONCOLOGICAL Hx Blood Disorders: No - INTEGUMENTARY Hx Dermatological Problems: No - MUSCULOSKELETAL/RHEUMATOLOGICAL Hx Musculoskeletal Disorders: No - GASTROINTESTINAL Hx Gastrointestinal Disorders: No - GENITOURINARY/GYNECOLOGICAL Hx Genitourinary Disorders: No - PSYCHIATRIC Hx Substance Use: No - SURGICAL HISTORY Hx Section: Yes (x2) - ANESTHESIA Hx Anesthesia: Yes Hx Anesthesia Reactions: No Meds Allergies/Adverse Reactions: Allergies Allergy/AdvReac Type Severity Reaction Status Date / Time Penicillins Allergy Severe ANGIOEDEMA Verified 08/08/17 09:37 - Medications Medications: Current Medications Aspirin (Ecotrin) 81 mg PO DAILY [facility] Last Admin: 09/01/17 09:00 Dose: 81 mg Dexamethasone (Decadron Inj) 4 mg IVP Q6H [facility] Last Admin: 09/01/17 11:17 Dose: 4 mg Efavirenz/Emtricitabine/Tenofovir (Atripla 600 Mg-200 Mg-300 Mg) 1 tab PO DAILY [facility] Last Admin: 09/01/17 09:00 Dose: 1 tab Famotidine (Pepcid) 20 mg PO DAILY [facility] Last Admin: 09/01/17 09:00 Dose: 20 mg Hydralazine HCl (Apresoline) 10 mg IVP Q6H PRN PRN Reason: Systolic Blood Pressure Last Admin: 09/01/17 09:00 Dose: 10 mg Fluconazole (Diflucan Iv 100 Mg/50 Ml Ns) 50 mls @ 100 mls/hr IVPB DAILY [facility] Last Admin: 09/01/17 10:29 Dose: 100 mls/hr Valproate Sodium 250 mg/ (Sodium Chloride) 102.5 mls @ 100 mls/hr IVPB DAILY [facility] Last Admin: 09/01/17 09:01 Dose: 100 mls/hr Dextrose/Sodium Chloride (Dextrose 5%/0.45% Ns 1000 Ml) 1,000 mls @ 100 mls/hr IV .Q10H [facility] Last Admin: 09/01/17 05:59 Dose: 100 mls/hr Insulin Aspart (Novolog) 0 unit SC ACHS [facility] PRN Reason: Protocol Last Admin: 09/01/17 11:43 Dose: Not Given Insulin Detemir (Levemir) 12 unit SC Q12H [facility] Levothyroxine Sodium (Synthroid) 125 mcg PO DAILY@0630 [facility] Last Admin: 09/01/17 05:46 Dose: 125 mcg Ondansetron HCl (Zofran Inj) 4 mg IVP Q6H PRN PRN Reason: Nausea/Vomiting Last Admin: 08/27/17 14:44 Dose: 4 mg Sucralfate (Carafate Oral Susp) 1 gm PO ACBHS [facility] Last Admin: 09/01/17 07:47 Dose: 1 gm Trimethoprim/Sulfamethoxazole (Bactrim Ds Tab) 1 tab PO MWF [facility] Last Admin: 09/01/17 08:46 Dose: 1 tab Physical Exam - Constitutional Appears: Chronically Ill - Head Exam Head Exam: ATRAUMATIC, NORMAL INSPECTION, NORMOCEPHALIC - Eye Exam Eye Exam: EOMI, Normal appearance, PERRL Pupil Exam: NORMAL ACCOMODATION, PERRL - ENT Exam Additional comments: NGT - Neck Exam Neck exam: Positive for: Normal Inspection - Respiratory Exam Respiratory Exam: Decreased Breath Sounds - Cardiovascular Exam Cardiovascular Exam: Tachycardia, REGULAR RHYTHM - GI/Abdominal Exam GI & Abdominal Exam: Hypoactive Bowel Sounds, Soft - Extremities Exam Extremities exam: Positive for: normal inspection, pedal edema - Back Exam Back exam: NORMAL INSPECTION - Neurological Exam Neurological exam: Motor Sensory Deficit - Psychiatric Exam Psychiatric exam: Flat Affect - Skin Skin Exam: Normal Color, Warm Results - Vital Signs Recent Vital Signs: Last Vital Signs Temp 97.5 F L 09/01/17 11:15 Pulse 117 H 09/01/17 11:15 Resp 26 H 09/01/17 11:15 BP 174/99 H 09/01/17 11:15 Pulse Ox 100 09/01/17 07:40 - Labs Result Diagrams: 09/01/17 08:10 09/01/17 08:10 Labs: Laboratory Results - last 24 hr 08/31/17 08/31/17 08/31/17 07:15 17:06 17:49 WBC RBC Hgb Hct MCV MCH MCHC RDW Plt Count MPV Neut % (Auto) Lymph % (Auto) [place] % (Auto) Eos % (Auto) Baso % (Auto) Neut # Lymph # [place] # Eos # Baso # Neutrophils % (Manual) Band Neutrophils % Lymphocytes % (Manual) Monocytes % (Manual) Platelet Estimate Large Platelets Hypochromasia (manual) Poikilocytosis (manual Anisocytosis (manual) Target Cells Tear Drop Cells Ovalocytes Smear Path Review Sodium Potassium Chloride Carbon Dioxide Anion Gap BUN Creatinine Est GFR ( Amer) Est GFR (Non-Af Amer) POC Glucose (mg/dL) 51 L 176 H Random Glucose Calcium Phosphorus Magnesium Total Bilirubin AST ALT Alkaline Phosphatase Total Protein Albumin Globulin Albumin/Globulin Ratio 08/31/17 09/01/17 09/01/17 21:54 06:26 08:10 WBC 9.0 D RBC 3.76 L Hgb 11.4 Hct 32.9 L MCV 87.4 MCH 30.2 MCHC 34.6 RDW 14.9 H Plt Count 62 L D MPV 8.2 Neut % (Auto) 85.2 H Lymph % (Auto) 7.1 L [place] % (Auto) 7.1 Eos % (Auto) 0.0 Baso % (Auto) 0.6 Neut # 7.6 H Lymph # 0.6 L [place] # 0.6 Eos # 0.0 Baso # 0.1 Neutrophils % (Manual) 73 Band Neutrophils % 10 H Lymphocytes % (Manual) 7 L Monocytes % (Manual) 10 Platelet Estimate Decreased L Large Platelets Present Hypochromasia (manual) Slight Poikilocytosis (manual Slight Anisocytosis (manual) Slight Target Cells Slight Tear Drop Cells Slight Ovalocytes Slight Smear Path Review Sodium Potassium Chloride Carbon Dioxide Anion Gap BUN Creatinine Est GFR ( Amer) Est GFR (Non-Af Amer) POC Glucose (mg/dL) 115 H 286 H Random Glucose Calcium Phosphorus Magnesium Total Bilirubin AST ALT Alkaline Phosphatase Total Protein Albumin Globulin Albumin/Globulin Ratio 09/01/17 09/01/17 08:10 11:42 WBC RBC Hgb Hct MCV MCH MCHC RDW Plt Count MPV Neut % (Auto) Lymph % (Auto) [place] % (Auto) Eos % (Auto) Baso % (Auto) Neut # Lymph # [place] # Eos # Baso # Neutrophils % (Manual) Band Neutrophils % Lymphocytes % (Manual) Monocytes % (Manual) Platelet Estimate Large Platelets Hypochromasia (manual) Poikilocytosis (manual Anisocytosis (manual) Target Cells Tear Drop Cells Ovalocytes Smear Path Review Sodium 132 Potassium 3.2 L Chloride 100 Carbon Dioxide 22 Anion Gap 13 BUN 28 H Creatinine 0.9 Est GFR ( Amer) > 60 Est GFR (Non-Af Amer) > 60 POC Glucose (mg/dL) 135 H Random Glucose 254 H Calcium 8.5 L Phosphorus 1.5 L Magnesium 2.0 Total Bilirubin 0.5 AST 21 ALT 22 Alkaline Phosphatase 131 H Total Protein 6.9 Albumin 3.1 L D Globulin 3.8 Albumin/Globulin Ratio 0.8 L Assessment & Plan - Assessment and Plan (Free Text) Assessment: Palliative consult Code status Unknown : Full Code, there is no Living Will/ Advance Directive on chart, PPS 10% I reviewed medical records, all diagnostic studies, examined patient in the bed. ROS was not obtainable from the patient due to her AMS. Patient examined in bed with her eyes closed. Patient did not respond upon her name was called. Only minimal grimaces noted upon applying gentle pressure to eye lids. Patient did not open her eyes at all. The NGT in place for nutrition. Breath sounds diminished, abdomen soft with distant bowel sounds. There is some pedal edema. TED 174/99, HR 117, RR 26. patient is on Difflucan, Bactrim, Morphine PRN , Atripla for the AIDS, Decadron among the others. Patient's ( significant other) is also Hospitalized, next door. I went to see him wit5h intention to discuss goals of care for the patient. Mr. Hoang was bent over, asleep with Nebulizer mask on. I was able to arouse him, but he said was feeling tired and went back to sleep. Impression * This is a chronically ill lady with most likely advanced AIDS, CD4 count not available at this time * Patient is unable to participate in goals of care discussion due to lethargy * Patient's wishes for the end of life care are not known * Patient's significant other who is the patient next door was not able to advocate for the patient due to his own health issues Suggestion * Supportive care * I will attempt goals of care discussion with patient's once again tomorrow in am * This patient should be made DNR/DNI * Hospice care would be a good level of care for this patient
--- NOTE | 2017-09-01 17:57 | PN ---
DATE: ENDOCRINOLOGY FOLLOWUP NOTE LOCATION: Room 654. 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 He is now being followed closely also for metabolic management. His glycemic levels are fluctuating, but much improved at this time and the glucose values have ranged from 135 to 286 mg/dL. Her latest chemistry showed a BUN of 28, sodium 132, potassium 3.2, chloride 100, CO2 22, glucose 254, creatinine 0.9. So at this time, we will modify the current basal insulin. She has ongoing tube feedings with Jevity as noted. We will discontinue her Lantus and switch her over to Levemir given as 12 units subcutaneous every 12 hours at 8 a.m. and 8 p.m. daily as ordered. We will continue the low dose correction scale using NovoLog insulin as given. We will obtain serial chemistries and supplement accordingly as needed. We will follow up. Nesha Donaldson MD
[2017-09-01] MEDS: Insulin Detemir 100 units/ml Vial (Levemir) SC SCH (21:54)
[2017-09-02] MEDS: Dexamethasone 4 mg/1 ml IVP SCH ×4 (00:28→18:27)
[2017-09-02] MEDS: Levothyroxine 125 MCG TAB PO SCH (05:58)
[2017-09-02] MEDS: Sucralfate 1 gm/10 ml Oral Susp UD PO SCH ×2 (07:05→21:35)
[2017-09-02 07:13] LABS: CHLORIDE 97 mmol/L (98-107); POTASSIUM 2.8 mmol/L (3.6-5.2); SODIUM 134 mmol/L (132-148)
[2017-09-02 07:15] LABS: ALB/GLOB RATIO 0.8 (1.0-2.1); AST/SGOT 28 U/L (14-36); BILIRUBIN,TOTAL 0.5 mg/dL (0.2-1.3); CARBON DIOXIDE 24 mmol/L (22-30); GFR AFRICAN-AMERICAN > 60; TOTAL PROTEIN 7.4 g/dL (6.3-8.3)
[2017-09-02 07:16] LABS: ALKALINE PHOSPHATASE 140 U/L (38-126); ALT/SGPT 18 U/L (9-52); BLOOD UREA NITROGEN 29 mg/dL (7-17); CALCIUM 8.9 mg/dl (8.6-10.4); GLUCOSE,RANDOM 215 mg/dL (65-105); MAGNESIUM 2.2 mg/dL (1.6-2.3); PHOSPHOROUS 1.5 mg/dL (2.5-4.5)
[2017-09-02 07:25] LABS: BASO % 0.3 % (0.0-2.0); EOS % 0.4 % (0.0-4.0); HEMATOCRIT 33.3 % (34.0-47.0); LYMPH # 0.9 K/uL (1.0-4.3); LYMPH % 7.5 % (20.0-40.0); MEAN CELL VOLUME 85.9 fL (81.0-99.0); MEAN CORPUSCULAR HEMOGLOBIN 29.7 pg (27.0-31.0); MEAN CORPUSCULAR HGB CONC 34.5 g/dL (33.0-37.0); MEAN PLATELET VOLUME 7.7 fL (7.2-11.7); MONO # 1.2 K/uL (0.0-0.8); MONO % 10.2 % (0.0-10.0); PLATELET COUNT 54 K/uL (130-400); RED CELL DISTRIBUTION WIDTH 14.8 % (11.5-14.5); WHITE BLOOD COUNT 11.6 K/uL (4.8-10.8)
[2017-09-02 07:27] LABS: T4 5.26 ug/dL (5.5-11.0)
[2017-09-02 07:41] LABS: THYROID STIMULATING HORMONE 1.61 mIU/L (0.46-4.68)
[2017-09-02] MEDS: (Novolog) Insulin Aspart, Recombinant 100 u/ml 10 ml vial SC SCH ×4 (08:15→21:37)
--- NOTE | 2017-09-02 08:15 | CP.PCM.PN ---
Subjective - Date & Time of Evaluation Date of Evaluation: 09/02/17 Time of Evaluation: 08:14 - Subjective Subjective: Ms. Morel was seen and examined at the bedside. She remains restless in bed, able to utter incomprehensible words. She has NGT and nasal cannula and bilateral hand mittens.There was no untoward events overnight. Objective - Vital Signs/Intake and Output Vital Signs (last 24 hours): Temp Pulse Resp BP Pulse Ox 97.9 F 116 H 20 197/114 H 97 09/02/17 06:00 09/02/17 06:00 09/02/17 06:00 09/02/17 06:00 09/02/17 06:00 Intake and Output: 09/02/17 09/02/17 06:59 18:59 Intake Total 1430 Output Total 1800 Balance -370 - Medications Medications: Current Medications Aspirin (Ecotrin) 81 mg PO DAILY [facility] Last Admin: 09/01/17 09:00 Dose: 81 mg Dexamethasone (Decadron Inj) 4 mg IVP Q6H [facility] Last Admin: 09/02/17 05:54 Dose: 4 mg Efavirenz/Emtricitabine/Tenofovir (Atripla 600 Mg-200 Mg-300 Mg) 1 tab PO DAILY [facility] Last Admin: 09/01/17 09:00 Dose: 1 tab Famotidine (Pepcid) 20 mg PO DAILY [facility] Last Admin: 09/01/17 09:00 Dose: 20 mg Hydralazine HCl (Apresoline) 10 mg IVP Q6H PRN PRN Reason: Systolic Blood Pressure Last Admin: 09/02/17 05:59 Dose: 10 mg Fluconazole (Diflucan Iv 100 Mg/50 Ml Ns) 50 mls @ 100 mls/hr IVPB DAILY [facility] Last Admin: 09/01/17 10:29 Dose: 100 mls/hr Valproate Sodium 250 mg/ (Sodium Chloride) 102.5 mls @ 100 mls/hr IVPB DAILY [facility] Last Admin: 09/01/17 09:01 Dose: 100 mls/hr Dextrose/Sodium Chloride (Dextrose 5%/0.45% Ns 1000 Ml) 1,000 mls @ 100 mls/hr IV .Q10H [facility] Last Admin: 09/01/17 17:55 Dose: 100 mls/hr Insulin Aspart (Novolog) 0 unit SC ACHS [facility] PRN Reason: Protocol Last Admin: 09/01/17 21:52 Dose: Not Given Insulin Detemir (Levemir) 12 unit SC Q12H [facility] Last Admin: 09/01/17 21:54 Dose: 12 unit Levothyroxine Sodium (Synthroid) 125 mcg PO DAILY@0630 [facility] Last Admin: 09/02/17 05:58 Dose: 125 mcg Ondansetron HCl (Zofran Inj) 4 mg IVP Q6H PRN PRN Reason: Nausea/Vomiting Last Admin: 08/27/17 14:44 Dose: 4 mg Sucralfate (Carafate Oral Susp) 1 gm PO ACBHS [facility] Last Admin: 09/02/17 07:05 Dose: 1 gm Trimethoprim/Sulfamethoxazole (Bactrim Ds Tab) 1 tab PO MWF [facility] Last Admin: 09/01/17 08:46 Dose: 1 tab - Labs Labs: 09/02/17 06:45 09/02/17 06:45 PT 11.2 SECONDS (9.7-12.2) 08/08/17 10:10 INR 1.0 08/08/17 10:10 APTT 25 SECONDS (21-34) 08/08/17 10:10 - Constitutional Appears: Agitated, Cachectic - Head Exam Head Exam: ATRAUMATIC, NORMAL INSPECTION, NORMOCEPHALIC - Neurological Exam Neuro motor strength exam: Left Upper Extremity: 4, Right Upper Extremity: 4, Left Lower Extremity: 4, Right Lower Extremity: 4 Additional comments: She remains restless, unable to perform neurochecks. Assessment and Plan (1) Encephalopathy acute Assessment & Plan: Case discussed with Dr. Denney, continue all current medical, physical, occupational, and speech therapies. There is no new recommendations from neurology. Status: Acute
[2017-09-02] MEDS: Insulin Detemir 100 units/ml Vial (Levemir) SC SCH ×2 (08:33→21:44)
[2017-09-02 08:34] LABS: MYELOCYTE 4 % (0-0); NEUTROPHIL 64 % (50-75); TOTAL CELLS COUNTED 100
[2017-09-02] MEDS ORDERED: Potassium Chloride 20 mEq/15 ml LIQ UD PO SCH (09:45)
--- NOTE | 2017-09-02 09:46 | CP.PCM.PN ---
<Fransisco Doshi - Last Filed: 09/02/17 12:54> Subjective - Date & Time of Evaluation Date of Evaluation: 09/02/17 Time of Evaluation: 09:43 - Subjective Subjective: PGY1 medicine not for Dr Oshea Patient was seen and examined at bedside. No acute events overnight per nurse's notes. Patient with nasal gastric tube, bilateral hand mittens, and nasal cannula. She remains restless in bed, able to utter incomprehensible words. ROS is unobtainable and patient was unable to respond to my questions. Objective - Vital Signs/Intake and Output Vital Signs (last 24 hours): Temp Pulse Resp BP Pulse Ox 97.9 F 113 H 20 178/100 H 100 09/02/17 07:40 09/02/17 07:40 09/02/17 07:40 09/02/17 07:40 09/02/17 07:40 Intake and Output: 09/02/17 09/02/17 06:59 18:59 Intake Total 1430 Output Total 1800 Balance -370 - Medications Medications: Current Medications Aspirin (Ecotrin) 81 mg PO DAILY [facility] Last Admin: 09/01/17 09:00 Dose: 81 mg Dexamethasone (Decadron Inj) 4 mg IVP Q6H [facility] Last Admin: 09/02/17 05:54 Dose: 4 mg Efavirenz/Emtricitabine/Tenofovir (Atripla 600 Mg-200 Mg-300 Mg) 1 tab PO DAILY [facility] Last Admin: 09/01/17 09:00 Dose: 1 tab Famotidine (Pepcid) 20 mg PO DAILY [facility] Last Admin: 09/01/17 09:00 Dose: 20 mg Hydralazine HCl (Apresoline) 10 mg IVP Q6H PRN PRN Reason: Systolic Blood Pressure Last Admin: 09/02/17 05:59 Dose: 10 mg Fluconazole (Diflucan Iv 100 Mg/50 Ml Ns) 50 mls @ 100 mls/hr IVPB DAILY [facility] Last Admin: 09/01/17 10:29 Dose: 100 mls/hr Valproate Sodium 250 mg/ (Sodium Chloride) 102.5 mls @ 100 mls/hr IVPB DAILY [facility] Last Admin: 09/01/17 09:01 Dose: 100 mls/hr Dextrose/Sodium Chloride (Dextrose 5%/0.45% Ns 1000 Ml) 1,000 mls @ 100 mls/hr IV .Q10H [facility] Last Admin: 09/01/17 17:55 Dose: 100 mls/hr Insulin Aspart (Novolog) 0 unit SC ACHS [facility] PRN Reason: Protocol Last Admin: 09/02/17 08:15 Dose: Not Given Insulin Detemir (Levemir) 12 unit SC Q12H [facility] Last Admin: 09/02/17 08:33 Dose: 12 unit Levothyroxine Sodium (Synthroid) 125 mcg PO DAILY@0630 [facility] Last Admin: 09/02/17 05:58 Dose: 125 mcg Ondansetron HCl (Zofran Inj) 4 mg IVP Q6H PRN PRN Reason: Nausea/Vomiting Last Admin: 08/27/17 14:44 Dose: 4 mg Potassium Chloride (Potassium Chloride Oral Soln) 40 meq PO Q12H [facility] Stop: 09/02/17 21:46 Sucralfate (Carafate Oral Susp) 1 gm PO ACBHS [facility] Last Admin: 09/02/17 07:05 Dose: 1 gm Trimethoprim/Sulfamethoxazole (Bactrim Ds Tab) 1 tab PO MWF [facility] Last Admin: 09/01/17 08:46 Dose: 1 tab - Labs Labs: 09/02/17 06:45 09/02/17 06:45 PT 11.2 SECONDS (9.7-12.2) 08/08/17 10:10 INR 1.0 08/08/17 10:10 APTT 25 SECONDS (21-34) 08/08/17 10:10 - Constitutional Appears: Agitated, Cachectic - Head Exam Head Exam: ATRAUMATIC, NORMAL INSPECTION - Eye Exam Eye Exam: EOMI Pupil Exam: PERRL - ENT Exam ENT Exam: Mucous Membranes Moist - Neck Exam Neck Exam: Normal Inspection - Respiratory Exam Respiratory Exam: Clear to Ausculation Bilateral, NORMAL BREATHING PATTERN. absent: Wheezes - Cardiovascular Exam Cardiovascular Exam: REGULAR RHYTHM, +S1, +S2. absent: JVD, Murmur - GI/Abdominal Exam GI & Abdominal Exam: Soft, Normal Bowel Sounds. absent: Distended, Tenderness - Rectal Exam Rectal Exam: Deferred - Extremities Exam Extremities Exam: absent: Calf Tenderness, Pedal Edema - Neurological Exam Neurological Exam: Altered, Awake. absent: Oriented x3 Neuro motor strength exam: Left Upper Extremity: 4, Right Upper Extremity: 4, Left Lower Extremity: 4, Right Lower Extremity: 4 - Psychiatric Exam Psychiatric exam: Agitated - Skin Skin Exam: Dry, Intact, Normal Color, Warm Assessment and Plan - Assessment and Plan (Free Text) Assessment: AIDS, acute encephalopathy 09/01: Patient was unable to be awoken today. She responded to painful stimuli by pulling away and moaning. She was able to move all four extremities. Discussed with patient's that the patient's prognosis is very poor. He states he understands. Patient will likely need a LP to acquire CSF fluid for further eval. Transfused 1 unit of platelets today. f/u EEG discontinued morphine 08/31: She is somulent. Able to open eyes, random slow movements of arms and legs. Not following any commands. She was started on IV decardon yesterday. She will likley need LP to aquire CSF in the future to again test for JAGUAR virus since imaging via MRI is suggesting progressive multifocal leukoencephalopathy. Previous testing of JAGUAR virus were negative. This being said her platelet count is very low, transfusing 1 unit today. Pending hematology evaluation. 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 Neck MRA 08/29/17: No significant stenosis seen in the visualized bilateral common or internal carotid arteries. Mild right ICA proximal stenosis is identified with plaque identified at the right carotid bulb. Widely patent bilateral common carotids but otherwise, as imaged. Symmetric vertebrobasilar circulation. Head MRA 08/29/17: Suboptimal diagnostic quality due to motion degraded images, allowing for this, no occlusion. Apparent narrowing in bilateral M1 segments could be related to motion artifacts. Patient potentially had a seizure over night. CT (08/22) was negative for any acute findings. Brain MRI was ordered for f/u. patient has not had any more events since then Neurology Consulted, Dr. Denney --> Help appreciated; states that all changes in AMS are most likely due to AIDS Brain MRI w/o contrast(08/22) - Mild diffuse/confluent nonspecific white matter changes as described. Findings are of uncertain etiology though could represent sequela of HIV encephalopathy. PML not excluded. See above discussion for additional differential diagnostic considerations. Questionable secretions/opacification of exuberantly aerated mastoid air cells ramyfing into the left petrous apex however the possibility apical petrositis or small the left petrous CT apex cholesterol granuloma. Repeat Head CT w/o contrast 08/28/17 - Significant motion artifact limits this exam however interval edema is identified at the right greater than left basal ganglia and thalami as well as the bilateral occipital lobes and the right parietal lobe. Is difficult to determine definitively though this is vasogenic or cytotoxic however embolic infarction is questioned. Given the basal ganglia and thalami being affected focally, and anoxic insult is included in the differential diagnosis or even though there is no global loss of vaca-white matter differentiation and edema in this patient. Infectious or metabolic etiologies are not excluded but are not favored. * EEG ordered for morning of 08/23: This is a probably normal EEG. There was increased beta activity noticed intermittently. This could be a normal finding. No focal slowing no seizure like activity was observed. Correlation with clinical findings is needed. 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 Opportunistic Infection ID Dr. Meneses --> help appreciated * Continue Diflucan, bactrim * Started Atripla started 08/27/17 - CT head 08/11 - Negative - MRI 08/12 - unremarkable - LDH - 478 - CD4 - 72 (AIDS confirmed) -->repeat 110 - HIV-1 RNA Qnt (RT-PCR) - 5.80 high - Viral Load: Must r/o infectious causes * CMV - IgG > 10; IgM <30; Dennotes previous infection, no acute infection * Crypto - <1:2 * RPR - nonreactive * Toxoplasma - IgG < 7.2; IgM < 8 * 09/02/17 bands uptrended to 17 today and wbc uptrended to 11.6, likely due to decadron * 09/02/17 Dr Denney prefers platelet count > 75 prior to lumbar puncture, will transfuse 1 bag platelets today. AIDS 08/31: On Atripla at this time. This is being crushed and given via NGT * Dr. Mneeses recs * Bactrim DS 1 tab PO M/W/F * Atripla [id number](Efavirenz/Emtricitabine/Teno) 1 tab PO daily - script written and placed in chart for pt's to picking machine operator and fill, so when patient is discharged to [facility], he will be able to take her medication with her, as [facility] does not usually provide HARRT medications. Dr. Sahu discussed with pt's , Emiliano Hoang, on the phone. He stated he understands and will picking machine operator prescription to fill it by 08/28. * Neupogen given 08/25 * HIV screen Positive, CD4 = 72, repeat CD4 = 110 * hep panel negative * Will f/u recs for HARRT therapy upon discharge. * Patient will need to follow up with HIV clinic for continuation of HARRT therapy as out patient. * [facility] - Clinic at [address], [place] * [facility] - Clinic at [address], [place] Phone Anemia; most likely 2/2 to advanced AIDS 08/31: Patient's platelet count continues to decrease, conset recived for one unit of platelets to be given * Improved to Hgb of 12.7 from 7.1 - patient given 2 units pRBCs on 08/26/17 ( consent given by , Emiliano Hoang, on phone) * continue to monitor Hypertension * 09/02/17 started norvasc 5 mg ngt daily Diabetes hypoglycemia protocol RISS only for now Endo consulted, Dr. Nesha Donaldson; appreciate recs * Lantus changed to 12 units HS * Novolog changed to 6 units AC * ISS low HgA1C - 7.1 accuchecks q6h Continue to monitor Hyponatremia; resolved * STOPPED medications due to potential s/e of hyponatremia * Zoloft, Trazodone and IV fluids. * Nephro Consult, Dr. Wong - help appreciated, f/u recs * urine sodium 113 --> 43 * urine osmol 502 --> 176 * serum osmol 276 * will continue to monitor Dysphagia; resolved Chest CT * particulate matter, possibly food, identified within the esophageal lumen intermixed with gas. * Incidental 6mm nodule within superior right breast. CXR * no acute cardiopulmonary disease Neck soft tissue CT * Abnormal circumferential thickening noted of the cervical esophagus. findings could be due to reflux esophagitis but esophageal carcinoma is not excluded. GI consulted, Dr. 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 Prophylactic Care * Heparin 5000u sc q8h - DC'ed due to anemia * SCDs for DVT ppx * Pepcid 20 ivp daily * Fall precautions * 1-1 sitter Case discussed with Dr. Oshea <Ashok Oshea - Last Filed: 09/03/17 16:54> Objective - Vital Signs/Intake and Output Vital Signs (last 24 hours): Temp Pulse Resp BP Pulse Ox 98.5 F 108 H 20 165/94 H 100 09/03/17 16:19 09/03/17 16:19 09/03/17 16:19 09/03/17 16:19 09/03/17 16:19 Intake and Output: 09/03/17 09/03/17 06:59 18:59 Intake Total 80 Output Total 800 Balance -720 - Medications Medications: Current Medications Amlodipine Besylate (Norvasc) 5 mg NG DAILY [facility] Last Admin: 09/03/17 10:35 Dose: 5 mg Aspirin (Ecotrin) 81 mg PO DAILY [facility] Last Admin: 09/03/17 10:35 Dose: 81 mg Dexamethasone (Decadron Inj) 4 mg IVP Q6H [facility] Last Admin: 09/03/17 12:24 Dose: 4 mg Efavirenz/Emtricitabine/Tenofovir (Atripla 600 Mg-200 Mg-300 Mg) 1 tab PO DAILY [facility] Last Admin: 09/03/17 10:35 Dose: 1 tab Famotidine (Pepcid) 20 mg PO DAILY [facility] Last Admin: 09/03/17 10:55 Dose: 20 mg Hydralazine HCl (Apresoline) 10 mg IVP Q6H PRN PRN Reason: Systolic Blood Pressure Last Admin: 09/02/17 21:46 Dose: 10 mg Fluconazole (Diflucan Iv 100 Mg/50 Ml Ns) 50 mls @ 100 mls/hr IVPB DAILY [facility] Last Admin: 09/03/17 10:36 Dose: 100 mls/hr Valproate Sodium 250 mg/ (Sodium Chloride) 102.5 mls @ 100 mls/hr IVPB DAILY [facility] Last Admin: 09/03/17 10:36 Dose: 100 mls/hr Dextrose/Sodium Chloride (Dextrose 5%/0.45% Ns 1000 Ml) 1,000 mls @ 100 mls/hr IV .Q10H [facility] Last Admin: 09/03/17 08:39 Dose: 100 mls/hr Insulin Aspart (Novolog) 0 unit SC ACHS [facility] PRN Reason: Protocol Last Admin: 09/03/17 12:30 Dose: Not Given Insulin Detemir (Levemir) 18 unit SC Q12H [facility] Levothyroxine Sodium (Synthroid) 125 mcg PO DAILY@0630 [facility] Last Admin: 09/03/17 05:31 Dose: 125 mcg Ondansetron HCl (Zofran Inj) 4 mg IVP Q6H PRN PRN Reason: Nausea/Vomiting Last Admin: 08/27/17 14:44 Dose: 4 mg Potassium Phos/Sodium Phos (Neutra-Phos) 1 pkt PO TID [facility] Last Admin: 09/03/17 14:03 Dose: 1 pkt Sucralfate (Carafate Oral Susp) 1 gm PO ACBHS [facility] Last Admin: 09/03/17 06:35 Dose: 1 gm Trimethoprim/Sulfamethoxazole (Bactrim Ds Tab) 1 tab PO MWF [facility] Last Admin: 09/03/17 10:00 Dose: 1 tab - Labs Labs: 09/03/17 07:30 09/03/17 07:30 PT 11.2 SECONDS (9.7-12.2) 08/08/17 10:10 INR 1.0 08/08/17 10:10 APTT 25 SECONDS (21-34) 08/08/17 10:10 Attending/Attestation - Attestation I have personally seen and examined this patient.: Yes I have fully participated in the care of the patient.: Yes I have reviewed all pertinent clinical information, including history, physical exam and plan: Yes Notes (Text): AIDS, acute encephalopathy PLM AMS 2/2 AIDS Dementia Opportunistic Infection Unable to take PO due to ms change on NG tube discuss with family if prolonged may need peg
[2017-09-02] MEDS: Efavirenz/Emtricitabine/Teno 1 TAB PO SCH (09:55)
[2017-09-02] MEDS: Fluconazole IV 100mg/50 ml NS 50 ML IVPB SCH (09:59)
[2017-09-02] MEDS: Valproate 250 MG in Sodium Chloride 0.9% 100 ML IVPB SCH (10:00)
[2017-09-02] MEDS: Dextrose 5%/0.45% NS 1,000 ML IV SCH ×2 (10:21→13:09)
[2017-09-02] MEDS: Potassium Chloride 20 mEq/15 ml LIQ UD PO SCH ×2 (12:07→16:38)
--- NOTE | 2017-09-02 13:35 | CP.PCM.PN ---
Subjective - Date & Time of Evaluation Date of Evaluation: 09/02/17 Time of Evaluation: 13:34 - Subjective Subjective: Patient is more alert today but still only able to blink her eyes for yes/no answers. Objective - Vital Signs/Intake and Output Vital Signs (last 24 hours): Temp Pulse Resp BP Pulse Ox 97.9 F 113 H 20 178/100 H 100 09/02/17 07:40 09/02/17 07:40 09/02/17 07:40 09/02/17 07:40 09/02/17 07:40 Intake and Output: 09/02/17 09/02/17 06:59 18:59 Intake Total 1430 Output Total 1800 Balance -370 - Medications Medications: Current Medications Amlodipine Besylate (Norvasc) 5 mg NG DAILY [facility] Last Admin: 09/02/17 12:06 Dose: 5 mg Aspirin (Ecotrin) 81 mg PO DAILY [facility] Last Admin: 09/02/17 09:55 Dose: 81 mg Dexamethasone (Decadron Inj) 4 mg IVP Q6H [facility] Last Admin: 09/02/17 12:09 Dose: 4 mg Efavirenz/Emtricitabine/Tenofovir (Atripla 600 Mg-200 Mg-300 Mg) 1 tab PO DAILY [facility] Last Admin: 09/02/17 09:55 Dose: 1 tab Famotidine (Pepcid) 20 mg PO DAILY [facility] Last Admin: 09/02/17 09:55 Dose: 20 mg Hydralazine HCl (Apresoline) 10 mg IVP Q6H PRN PRN Reason: Systolic Blood Pressure Last Admin: 09/02/17 05:59 Dose: 10 mg Fluconazole (Diflucan Iv 100 Mg/50 Ml Ns) 50 mls @ 100 mls/hr IVPB DAILY [facility] Last Admin: 09/02/17 09:59 Dose: 100 mls/hr Valproate Sodium 250 mg/ (Sodium Chloride) 102.5 mls @ 100 mls/hr IVPB DAILY [facility] Last Admin: 09/02/17 10:00 Dose: 100 mls/hr Dextrose/Sodium Chloride (Dextrose 5%/0.45% Ns 1000 Ml) 1,000 mls @ 100 mls/hr IV .Q10H [facility] Last Admin: 09/02/17 13:09 Dose: Not Given Insulin Aspart (Novolog) 0 unit SC ACHS [facility] PRN Reason: Protocol Last Admin: 09/02/17 11:57 Dose: Not Given Insulin Detemir (Levemir) 12 unit SC Q12H [facility] Last Admin: 09/02/17 08:33 Dose: 12 unit Levothyroxine Sodium (Synthroid) 125 mcg PO DAILY@0630 [facility] Last Admin: 09/02/17 05:58 Dose: 125 mcg Ondansetron HCl (Zofran Inj) 4 mg IVP Q6H PRN PRN Reason: Nausea/Vomiting Last Admin: 08/27/17 14:44 Dose: 4 mg Potassium Chloride (Potassium Chloride Oral Soln) 40 meq PO Q4H [facility] Stop: 09/02/17 15:46 Last Admin: 09/02/17 12:07 Dose: 40 meq Potassium Phos/Sodium Phos (Neutra-Phos) 1 pkt PO TID [facility] Sucralfate (Carafate Oral Susp) 1 gm PO ACBHS [facility] Last Admin: 09/02/17 07:05 Dose: 1 gm Trimethoprim/Sulfamethoxazole (Bactrim Ds Tab) 1 tab PO MWF [facility] Last Admin: 09/01/17 08:46 Dose: 1 tab - Labs Labs: 09/02/17 06:45 09/02/17 06:45 PT 11.2 SECONDS (9.7-12.2) 08/08/17 10:10 INR 1.0 08/08/17 10:10 APTT 25 SECONDS (21-34) 08/08/17 10:10 - Constitutional Appears: Chronically Ill - Head Exam Head Exam: ATRAUMATIC, NORMAL INSPECTION, NORMOCEPHALIC - Eye Exam Eye Exam: EOMI, Normal appearance, PERRL Pupil Exam: NORMAL ACCOMODATION, PERRL - ENT Exam ENT Exam: Mucous Membranes Moist, Normal Exam - Neck Exam Neck Exam: Full ROM, Normal Inspection Additional comments: NGT - Respiratory Exam Respiratory Exam: Decreased Breath Sounds, NORMAL BREATHING PATTERN - Cardiovascular Exam Cardiovascular Exam: Tachycardia, REGULAR RHYTHM - GI/Abdominal Exam GI & Abdominal Exam: Hypoactive Bowel Sounds - Rectal Exam Rectal Exam: Deferred - Extremities Exam Extremities Exam: Normal Inspection, Pedal Edema - Back Exam Back Exam: NORMAL INSPECTION - Neurological Exam Neurological Exam: Alert, Altered Neuro motor strength exam: Left Upper Extremity: 2/1, Right Upper Extremity: 2/1 , Left Lower Extremity: 2/1, Right Lower Extremity: 2 - Psychiatric Exam Psychiatric exam: Flat Affect - Skin Skin Exam: Dry, Intact, Normal Color, Warm Assessment and Plan - Assessment and Plan (Free Text) Assessment: Patient is alert, lethargic, very weak and able to communicate only briefly by blinking the eyes for yes/no answers. Patient is not making eyes contact nor is concentrating on discussion. The face looks puffy. Skin is intact. NGT in place for feedings. Patient needs max assistance with ADLs. I met with patient's son Milton. Goals of care discussed. Milton states that his mother has been sick for a long time ( years). He describes her as being very weak, walking very slowly around the house until recently when she become unable to swallow the food. I reviewed patient's clinical presentation and results of the studies we had done while at this hospital. I elicited his knowledge about patient's wishes for end of life care. I also suggested that patient was very sick at present and that we could not say what way her progress will go to, and that we wre doing evrything we can to help her with recovery. Milton said, he has not had this kind of discussion with his mother and would not know. I explained that we may need a decision surrogate maker and in this case it will be the oldest child, since patient's is not well him self and unable to discuss goals of care. He gave me his older brother Remigio Brunner phone # [phone]. Impression * Patient remains lethargic and very sick looking * Patient's , who is a next door patient is not well him self and unable to carry out meaningful conversation regarding goals of care * Patient's son Milla is not aware of patient's wishes regarding the end of life care * Patient has an older son Remigio Brunner, [phone] who is the [employer] Suggestion * Supportive care * Plan of care to be adjusted based on patient's condition * Call the son Remigio Brunner [phone] for any decision making regarding invasive procedure * DNR/DNI would be the appropriate Code status for this patient.
[2017-09-02] MEDS: Potassium & Sodium Phosphate PO SCH ×2 (14:17→18:27)
--- NOTE | 2017-09-02 15:15 | CARD ---
APPROVED REPORT EKG Measurement Heart [id number] <Conclusion> Sinus tachycardia Nonspecific ST and T wave abnormality Abnormal ECG
[2017-09-02 15:38] LABS: JC VIRUS DNA PCR QUANT <500 copies/mL (<500); JC VIRUS DNA SOURCE Plasma
--- NOTE | 2017-09-02 18:49 | CP.PCM.CON ---
History of Present Illness - History of Present Illness History of Present Illness: 57 year old female with a history of HTN, DM, hypothyroid, HIV on abbreviated course of HAART due to lack of insurance, LOLIS s/p HD, admitted with dysphagia, seizures, and AM, with thrombocytopenia. The patient is currently confused with minimal responsiveness and I am unable to obtain a history from her. Review of her medical records shows a normal WBC and hgb, with plt nevaeh at 15, 000. There are no signs of abnormal bleeding and bruising. Past medical, surgical, family, social history cannot be obtained from the patient. Allergies: Per documentation PCN. Review of systems cannot be obtained form the patient. Past Patient History - Past Medical History & Family History Past Medical History?: Yes - Past Social History Smoking Status: Never Smoked - CARDIAC Hx Hypertension: Yes - PULMONARY Hx Respiratory Disorders: No - NEUROLOGICAL Hx Neurological Disorder: No - HEENT Hx HEENT Problems: No - RENAL Hx Chronic Kidney Disease: No - ENDOCRINE/METABOLIC Hx Hypothyroidism: Yes - HEMATOLOGICAL/ONCOLOGICAL Hx Blood Disorders: No - INTEGUMENTARY Hx Dermatological Problems: No - MUSCULOSKELETAL/RHEUMATOLOGICAL Hx Musculoskeletal Disorders: No - GASTROINTESTINAL Hx Gastrointestinal Disorders: No - GENITOURINARY/GYNECOLOGICAL Hx Genitourinary Disorders: No - PSYCHIATRIC Hx Substance Use: No - SURGICAL HISTORY Hx Section: Yes (x2) - ANESTHESIA Hx Anesthesia: Yes Hx Anesthesia Reactions: No Meds Allergies/Adverse Reactions: Allergies Allergy/AdvReac Type Severity Reaction Status Date / Time Penicillins Allergy Severe ANGIOEDEMA Verified 08/08/17 09:37 - Medications Medications: Current Medications Amlodipine Besylate (Norvasc) 5 mg NG DAILY [facility] Last Admin: 09/02/17 12:06 Dose: 5 mg Aspirin (Ecotrin) 81 mg PO DAILY [facility] Last Admin: 09/02/17 09:55 Dose: 81 mg Dexamethasone (Decadron Inj) 4 mg IVP Q6H [facility] Last Admin: 09/02/17 18:27 Dose: 4 mg Efavirenz/Emtricitabine/Tenofovir (Atripla 600 Mg-200 Mg-300 Mg) 1 tab PO DAILY [facility] Last Admin: 09/02/17 09:55 Dose: 1 tab Famotidine (Pepcid) 20 mg PO DAILY [facility] Last Admin: 09/02/17 09:55 Dose: 20 mg Hydralazine HCl (Apresoline) 10 mg IVP Q6H PRN PRN Reason: Systolic Blood Pressure Last Admin: 09/02/17 16:37 Dose: 10 mg Fluconazole (Diflucan Iv 100 Mg/50 Ml Ns) 50 mls @ 100 mls/hr IVPB DAILY [facility] Last Admin: 09/02/17 09:59 Dose: 100 mls/hr Valproate Sodium 250 mg/ (Sodium Chloride) 102.5 mls @ 100 mls/hr IVPB DAILY [facility] Last Admin: 09/02/17 10:00 Dose: 100 mls/hr Dextrose/Sodium Chloride (Dextrose 5%/0.45% Ns 1000 Ml) 1,000 mls @ 100 mls/hr IV .Q10H [facility] Last Admin: 09/02/17 13:09 Dose: Not Given Insulin Aspart (Novolog) 0 unit SC ACHS [facility] PRN Reason: Protocol Last Admin: 09/02/17 16:16 Dose: Not Given Insulin Detemir (Levemir) 14 unit SC Q12H [facility] Levothyroxine Sodium (Synthroid) 125 mcg PO DAILY@0630 [facility] Last Admin: 09/02/17 05:58 Dose: 125 mcg Ondansetron HCl (Zofran Inj) 4 mg IVP Q6H PRN PRN Reason: Nausea/Vomiting Last Admin: 08/27/17 14:44 Dose: 4 mg Potassium Phos/Sodium Phos (Neutra-Phos) 1 pkt PO TID [facility] Last Admin: 09/02/17 18:27 Dose: 1 pkt Sucralfate (Carafate Oral Susp) 1 gm PO ACBHS [facility] Last Admin: 09/02/17 07:05 Dose: 1 gm Trimethoprim/Sulfamethoxazole (Bactrim Ds Tab) 1 tab PO MWF [facility] Last Admin: 09/01/17 08:46 Dose: 1 tab Physical Exam - Head Exam Head Exam: ATRAUMATIC - Eye Exam Eye Exam: Normal appearance - ENT Exam ENT Exam: Mucous Membranes Dry - Respiratory Exam Respiratory Exam: NORMAL BREATHING PATTERN - Cardiovascular Exam Cardiovascular Exam: +S1, +S2 - GI/Abdominal Exam GI & Abdominal Exam: Normal Bowel Sounds - Extremities Exam Extremities exam: Positive for: normal inspection - Neurological Exam Neurological exam: Altered - Psychiatric Exam Psychiatric exam: Flat Affect - Skin Skin Exam: Warm Results - Vital Signs Recent Vital Signs: Last Vital Signs Temp 97.2 F L 09/02/17 15:45 Pulse 107 H 09/02/17 16:00 Resp 20 09/02/17 15:45 BP 184/110 H 09/02/17 15:45 Pulse Ox 96 09/02/17 15:45 - Labs Result Diagrams: 09/02/17 06:45 09/02/17 06:45 Labs: Laboratory Results - last 24 hr 08/23/17 08/30/17 08/30/17 07:33 07:20 07:20 WBC RBC Hgb Hct MCV MCH MCHC RDW Plt Count MPV Neut % (Auto) Lymph % (Auto) Shannon % (Auto) Eos % (Auto) Baso % (Auto) Neut # Lymph # Shannon # Eos # Baso # Neutrophils % (Manual) Band Neutrophils % Lymphocytes % (Manual) Monocytes % (Manual) Myelocytes % Platelet Estimate Hypochromasia (manual) Poikilocytosis (manual Anisocytosis (manual) Sodium Potassium Chloride Carbon Dioxide Anion Gap BUN Creatinine Est GFR ( Amer) Est GFR (Non-Af Amer) POC Glucose (mg/dL) Random Glucose Calcium Phosphorus Magnesium Total Bilirubin AST ALT Alkaline Phosphatase Total Protein Albumin Globulin Albumin/Globulin Ratio Thyroxine (T4) TSH 3rd Generation Absolute Lymphs (Flow) 1003 % CD4 Cells 5 L Absolute CD4 Count 55 L T-Help/Suppress Ratio 0.10 L % CD8 Cells 56 H Absolute CD8 Count 566 HIV-1 RNA Qnt (RT-PCR) 5.34 H JAGUAR Virus Spec Source Plasma JAGUAR Virus DNA (PCR) <500 09/01/17 09/02/17 09/02/17 21:38 06:42 06:45 WBC 11.6 H RBC 3.88 Hgb 11.5 Hct 33.3 L MCV 85.9 MCH 29.7 MCHC 34.5 RDW 14.8 H Plt Count 54 L MPV 7.7 Neut % (Auto) 81.6 H Lymph % (Auto) 7.5 L Shannon % (Auto) 10.2 H Eos % (Auto) 0.4 Baso % (Auto) 0.3 Neut # 9.5 H Lymph # 0.9 L Shannon # 1.2 H Eos # 0.0 Baso # 0.0 Neutrophils % (Manual) 64 Band Neutrophils % 17 H* Lymphocytes % (Manual) 9 L Monocytes % (Manual) 6 Myelocytes % 4 H Platelet Estimate Decreased L Hypochromasia (manual) Slight Poikilocytosis (manual Slight Anisocytosis (manual) Slight Sodium Potassium Chloride Carbon Dioxide Anion Gap BUN Creatinine Est GFR ( Amer) Est GFR (Non-Af Amer) POC Glucose (mg/dL) 240 H 239 H Random Glucose Calcium Phosphorus Magnesium Total Bilirubin AST ALT Alkaline Phosphatase Total Protein Albumin Globulin Albumin/Globulin Ratio Thyroxine (T4) TSH 3rd Generation Absolute Lymphs (Flow) % CD4 Cells Absolute CD4 Count T-Help/Suppress Ratio % CD8 Cells Absolute CD8 Count HIV-1 RNA Qnt (RT-PCR) JAGUAR Virus Spec Source JAGUAR Virus DNA (PCR) 09/02/17 09/02/17 09/02/17 06:45 11:30 16:05 WBC RBC Hgb Hct MCV MCH MCHC RDW Plt Count MPV Neut % (Auto) Lymph % (Auto) Shannon % (Auto) Eos % (Auto) Baso % (Auto) Neut # Lymph # Shannon # Eos # Baso # Neutrophils % (Manual) Band Neutrophils % Lymphocytes % (Manual) Monocytes % (Manual) Myelocytes % Platelet Estimate Hypochromasia (manual) Poikilocytosis (manual Anisocytosis (manual) Sodium 134 Potassium 2.8 L Chloride 97 L Carbon Dioxide 24 Anion Gap 16 BUN 29 H Creatinine 0.8 Est GFR ( Amer) > 60 Est GFR (Non-Af Amer) > 60 POC Glucose (mg/dL) 231 H 266 H Random Glucose 215 H Calcium 8.9 Phosphorus 1.5 L Magnesium 2.2 Total Bilirubin 0.5 AST 28 ALT 18 Alkaline Phosphatase 140 H Total Protein 7.4 Albumin 3.3 L Globulin 4.1 H Albumin/Globulin Ratio 0.8 L Thyroxine (T4) 5.26 L TSH 3rd Generation 1.61 Absolute Lymphs (Flow) % CD4 Cells Absolute CD4 Count T-Help/Suppress Ratio % CD8 Cells Absolute CD8 Count HIV-1 RNA Qnt (RT-PCR) JAGUAR Virus Spec Source JAGUAR Virus DNA (PCR) Assessment & Plan (1) Thrombocytopenia Assessment and Plan: will review peripheral smear ? infection related ? immune mediated agree with plt transfusion pt recently started on steroids, will see if improvement in platelet count which would suggest an immune mediated etiology would recommend a platelet count of 50,000 and above for diagnostic LP (The AABB suggests prophylactic platelet transfusion for patients having elective diagnostic lumbar puncture with a platelet count less than 50,000; [employer]. 2015;162(3):205-213). Recommend sending CSF for cytology Thank you for this interesting consult. Status: Acute
--- NOTE | 2017-09-02 19:12 | PN ---
ENDOCRINOLOGY FOLLOWUP NOTE LOCATION: Room #654. SUBJECTIVE: This is a 57-year-old female with recent uncontrolled type 2 insulin-requiring diabetes, now being followed closely for metabolic management. 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 Her latest chemistry showed a BUN of 29, sodium 134, potassium 2.8, chloride 94, CO2 is 24, glucose is 215 and creatinine is 0.8. Her glucose levels have ranged from 231 to 239 mg/dL. We will titrate her Levemir therapy with higher dosing to optimize metabolic control. We will increase her Levemir to 14 units subcutaneous every 12 hours to start at 08:00 tonight as ordered. We will titrate incrementally as indicated to optimize metabolic control. We will obtain serial chemistries and supplement accordingly as needed. We will follow. Nesha Donaldson MD
[2017-09-03 02:52] LABS: JC VIRUS DNA PCR QUANT <500 copies/mL (<500); JC VIRUS DNA SOURCE Plasma
[2017-09-03] MEDS: Dexamethasone 4 mg/1 ml IVP SCH ×4 (05:31→17:38)
[2017-09-03] MEDS: Levothyroxine 125 MCG TAB PO SCH (05:31)
[2017-09-03] MEDS: Sucralfate 1 gm/10 ml Oral Susp UD PO SCH ×2 (06:35→22:02)
[2017-09-03] MEDS: Dextrose 5%/0.45% NS 1,000 ML IV SCH ×3 (07:15→22:07)
[2017-09-03] MEDS: (Novolog) Insulin Aspart, Recombinant 100 u/ml 10 ml vial SC SCH ×4 (07:29→22:03)
--- NOTE | 2017-09-03 07:37 | CP.PCM.PN ---
<Rupesh Sahu - Last Filed: 09/03/17 18:27> Subjective - Date & Time of Evaluation Date of Evaluation: 09/03/17 Time of Evaluation: 07:37 - Subjective Subjective: PGY1 Medicine Note for Dr. Oshea Patient seen and examined this morning at bedside. Patient is more awake and alert this morning compared to recent morning. Patient followed the resident in the room with her eyes during different periods of exam but stared out into space throughout the majority of the exam. Patient is still non-verbal and does not follow commands. Patient does not appear to be in any pain at this time. ROS unattainable. Objective - Vital Signs/Intake and Output Vital Signs (last 24 hours): Temp Pulse Resp BP Pulse Ox 98.4 F 112 H 20 180/89 H 96 09/03/17 00:20 09/03/17 04:21 09/03/17 00:20 09/03/17 04:42 09/02/17 23:20 Intake and Output: 09/03/17 09/03/17 06:59 18:59 Intake Total 80 Output Total 800 Balance -720 - Medications Medications: Current Medications Amlodipine Besylate (Norvasc) 5 mg NG DAILY [facility] Last Admin: 09/02/17 12:06 Dose: 5 mg Aspirin (Ecotrin) 81 mg PO DAILY [facility] Last Admin: 09/02/17 09:55 Dose: 81 mg Dexamethasone (Decadron Inj) 4 mg IVP Q6H [facility] Last Admin: 09/03/17 05:31 Dose: 4 mg Efavirenz/Emtricitabine/Tenofovir (Atripla 600 Mg-200 Mg-300 Mg) 1 tab PO DAILY [facility] Last Admin: 09/02/17 09:55 Dose: 1 tab Famotidine (Pepcid) 20 mg PO DAILY [facility] Last Admin: 09/02/17 09:55 Dose: 20 mg Hydralazine HCl (Apresoline) 10 mg IVP Q6H PRN PRN Reason: Systolic Blood Pressure Last Admin: 09/02/17 21:46 Dose: 10 mg Fluconazole (Diflucan Iv 100 Mg/50 Ml Ns) 50 mls @ 100 mls/hr IVPB DAILY [facility] Last Admin: 09/02/17 09:59 Dose: 100 mls/hr Valproate Sodium 250 mg/ (Sodium Chloride) 102.5 mls @ 100 mls/hr IVPB DAILY [facility] Last Admin: 09/02/17 10:00 Dose: 100 mls/hr Dextrose/Sodium Chloride (Dextrose 5%/0.45% Ns 1000 Ml) 1,000 mls @ 100 mls/hr IV .Q10H [facility] Last Admin: 09/02/17 13:09 Dose: Not Given Insulin Aspart (Novolog) 0 unit SC ACHS [facility] PRN Reason: Protocol Last Admin: 09/03/17 07:29 Dose: Not Given Insulin Detemir (Levemir) 14 unit SC Q12H [facility] Last Admin: 09/02/17 21:44 Dose: 14 unit Levothyroxine Sodium (Synthroid) 125 mcg PO DAILY@0630 [facility] Last Admin: 09/03/17 05:31 Dose: 125 mcg Ondansetron HCl (Zofran Inj) 4 mg IVP Q6H PRN PRN Reason: Nausea/Vomiting Last Admin: 08/27/17 14:44 Dose: 4 mg Potassium Phos/Sodium Phos (Neutra-Phos) 1 pkt PO TID [facility] Last Admin: 09/02/17 18:27 Dose: 1 pkt Sucralfate (Carafate Oral Susp) 1 gm PO ACBHS [facility] Last Admin: 09/03/17 06:35 Dose: 1 gm Trimethoprim/Sulfamethoxazole (Bactrim Ds Tab) 1 tab PO MWF [facility] Last Admin: 09/01/17 08:46 Dose: 1 tab - Labs Labs: 09/02/17 06:45 09/02/17 06:45 PT 11.2 SECONDS (9.7-12.2) 08/08/17 10:10 INR 1.0 08/08/17 10:10 APTT 25 SECONDS (21-34) 08/08/17 10:10 - Constitutional Appears: No Acute Distress, Chronically Ill - Head Exam Head Exam: ATRAUMATIC, NORMOCEPHALIC - Eye Exam Eye Exam: EOMI. absent: Scleral icterus - ENT Exam ENT Exam: Mucous Membranes Moist - Respiratory Exam Respiratory Exam: Clear to Ausculation Bilateral, NORMAL BREATHING PATTERN. absent: Accessory Muscle Use, Respiratory Distress - Cardiovascular Exam Cardiovascular Exam: REGULAR RHYTHM, +S1 - GI/Abdominal Exam GI & Abdominal Exam: Soft, Normal Bowel Sounds. absent: Distended, Firm, Guarding, Rigid, Tenderness - Extremities Exam Extremities Exam: absent: Calf Tenderness, Pedal Edema Additional comments: scds in place - Neurological Exam Neurological Exam: Altered (non-verbal, staring out into space for majority of exam), Awake - Psychiatric Exam Psychiatric exam: Flat Affect - Skin Skin Exam: Dry, Warm Assessment and Plan - Assessment and Plan (Free Text) Assessment: AIDS, acute encephalopathy 09/03: Patient's platelets still too low for LP even after multiple platelet transfusions. Dr. Denney is requesting platelets be >75. Will discuss with Dr. Denney possibility of performing a LP shortly after a platelet transfusion is completed. Will need to be transfused more platelets. Dr. Denney would like to perform LP under anesthesia due to patient's mental status and inability to follow commands properly. 09/01: Patient was unable to be awoken today. She responded to painful stimuli by pulling away and moaning. She was able to move all four extremities. Discussed with patient's that the patient's prognosis is very poor. He states he understands. Patient will likely need a LP to acquire CSF fluid for further eval. Transfused 1 unit of platelets today. f/u EEG discontinued morphine 08/31: She is somulent. Able to open eyes, random slow movements of arms and legs. Not following any commands. She was started on IV decardon yesterday. She will likley need LP to aquire CSF in the future to again test for JAGUAR virus since imaging via MRI is suggesting progressive multifocal leukoencephalopathy. Previous testing of JAGUAR virus were negative. This being said her platelet count is very low, transfusing 1 unit today. Pending hematology evaluation. 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 Neck MRA 08/29/17: No significant stenosis seen in the visualized bilateral common or internal carotid arteries. Mild right ICA proximal stenosis is identified with plaque identified at the right carotid bulb. Widely patent bilateral common carotids but otherwise, as imaged. Symmetric vertebrobasilar circulation. Head MRA 08/29/17: Suboptimal diagnostic quality due to motion degraded images, allowing for this, no occlusion. Apparent narrowing in bilateral M1 segments could be related to motion artifacts. Patient potentially had a seizure over night. CT (08/22) was negative for any acute findings. Brain MRI was ordered for f/u. patient has not had any more events since then Neurology Consulted, Dr. Denney --> Help appreciated; states that all changes in AMS are most likely due to AIDS Brain MRI w/o contrast(08/22) - Mild diffuse/confluent nonspecific white matter changes as described. Findings are of uncertain etiology though could represent sequela of HIV encephalopathy. PML not excluded. See above discussion for additional differential diagnostic considerations. Questionable secretions/opacification of exuberantly aerated mastoid air cells ramyfing into the left petrous apex however the possibility apical petrositis or small the left petrous CT apex cholesterol granuloma. Repeat Head CT w/o contrast 08/28/17 - Significant motion artifact limits this exam however interval edema is identified at the right greater than left basal ganglia and thalami as well as the bilateral occipital lobes and the right parietal lobe. Is difficult to determine definitively though this is vasogenic or cytotoxic however embolic infarction is questioned. Given the basal ganglia and thalami being affected focally, and anoxic insult is included in the differential diagnosis or even though there is no global loss of vaca-white matter differentiation and edema in this patient. Infectious or metabolic etiologies are not excluded but are not favored. * EEG ordered for morning of 08/23: This is a probably normal EEG. There was increased beta activity noticed intermittently. This could be a normal finding. No focal slowing no seizure like activity was observed. Correlation with clinical findings is needed. 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 Opportunistic Infection ID Dr. Meneses --> help appreciated * Continue Diflucan, bactrim * Started Atripla started 08/27/17 - CT head 08/11 - Negative - MRI 08/12 - unremarkable - LDH - 478 - CD4 - 72 (AIDS confirmed) -->repeat 110 - HIV-1 RNA Qnt (RT-PCR) - 5.80 high - Viral Load: Must r/o infectious causes * CMV - IgG > 10; IgM <30; Dennotes previous infection, no acute infection * Crypto - <1:2 * RPR - nonreactive * Toxoplasma - IgG < 7.2; IgM < 8 AIDS 08/31: On Atripla at this time. This is being crushed and given via NGT * Dr. Meneses recs * Bactrim DS 1 tab PO M/W/F * Atripla [id number](Efavirenz/Emtricitabine/Teno) 1 tab PO daily - script written and placed in chart for pt's to milk pickup driver and fill, so when patient is discharged to [facility], he will be able to take her medication with her, as [facility] does not usually provide HARRT medications. Dr. Sahu discussed with pt's , Emiliano Hoang, on the phone. He stated he understands and will milk pickup driver prescription to fill it by 08/28. * Neupogen given 08/25 * HIV screen Positive, CD4 = 72, repeat CD4 = 110 * hep panel negative * Will f/u recs for HARRT therapy upon discharge. * Patient will need to follow up with HIV clinic for continuation of HARRT therapy as out patient. * [facility] at [address], [place] * [facility] at [address], [place] Phone Anemia; most likely 2/2 to advanced AIDS 08/31: Patient's platelet count continues to decrease, conset recived for one unit of platelets to be given * Improved to Hgb of 12.7 from 7.1 - patient given 2 units pRBCs on 08/26/17 ( consent given by , Emiliano Hoang, on phone) * continue to monitor Diabetes hypoglycemia protocol RISS only for now Endo consulted, Dr. Nesha Donaldson; appreciate recs * Lantus changed to 12 units HS * Novolog changed to 6 units AC * ISS low HgA1C - 7.1 accuchecks q6h Continue to monitor Hyponatremia; resolved * STOPPED medications due to potential s/e of hyponatremia * Zoloft, Trazodone and IV fluids. * Nephro Consult, Dr. Wong - help appreciated, f/u recs * urine sodium 113 --> 43 * urine osmol 502 --> 176 * serum osmol 276 * will continue to monitor Dysphagia; resolved Chest CT * particulate matter, possibly food, identified within the esophageal lumen intermixed with gas. * Incidental 6mm nodule within superior right breast. CXR * no acute cardiopulmonary disease Neck soft tissue CT * Abnormal circumferential thickening noted of the cervical esophagus. findings could be due to reflux esophagitis but esophageal carcinoma is not excluded. GI consulted, Dr. 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 Prophylactic Care * Heparin 5000u sc q8h - DC'ed due to anemia * SCDs for DVT ppx * Pepcid 20 ivp daily * Fall precautions * 1-1 sitter Case discussed with Dr. Dorie Goddard Adelina PGY1 <Ashok Oshea - Last Filed: 09/08/17 17:35> Objective - Vital Signs/Intake and Output Vital Signs (last 24 hours): Temp Pulse Resp BP Pulse Ox 98.2 F 87 20 173/92 H 100 09/08/17 15:20 09/08/17 15:57 09/08/17 15:20 09/08/17 15:20 09/08/17 15:20 Intake and Output: 09/08/17 09/08/17 06:59 18:59 Intake Total 2540 800 Output Total 1850 1625 Balance 690 -825 - Medications Medications: Current Medications Amlodipine Besylate (Norvasc) 5 mg NG DAILY [facility] Last Admin: 09/08/17 10:31 Dose: 5 mg Aspirin (Ecotrin) 81 mg PO DAILY [facility] Last Admin: 09/08/17 10:31 Dose: 81 mg Dexamethasone (Decadron Inj) 4 mg IVP Q6H [facility] Last Admin: 09/08/17 17:19 Dose: 4 mg Dextrose (Dextrose 50% Inj) 0 ml IV STAT PRN; Protocol PRN Reason: Hyglycemia Protocol Last Admin: 09/07/17 17:10 Dose: 50 ml Dextrose (Glutose 15) 0 gm PO ONCE PRN; Protocol PRN Reason: Hypoglycemia Protocol Efavirenz/Emtricitabine/Tenofovir (Atripla 600 Mg-200 Mg-300 Mg) 1 tab PO DAILY [facility] Last Admin: 09/08/17 10:31 Dose: 1 tab Famotidine (Pepcid) 20 mg PO DAILY [facility] Last Admin: 09/08/17 10:31 Dose: 20 mg Glucagon (Glucagen Diagnostic Kit) 0 mg IM STAT PRN; Protocol PRN Reason: Hypoglycemia Protocol Hydralazine HCl (Apresoline) 10 mg IVP Q6H PRN PRN Reason: Systolic Blood Pressure Last Admin: 09/05/17 08:53 Dose: 10 mg Valproate Sodium 250 mg/ (Sodium Chloride) 102.5 mls @ 100 mls/hr IVPB DAILY [facility] Last Admin: 09/08/17 10:26 Dose: 100 mls/hr Aztreonam 2 gm/ Sodium (Chloride) 100 mls @ 100 mls/hr IVPB Q8H [facility] Last Admin: 09/08/17 13:00 Dose: 100 mls/hr Vancomycin/Sodium Chloride (Vancocin) 1 gm in 200 mls @ 133 mls/hr IVPB Q12H [facility] Stop: 09/10/17 21:01 Last Admin: 09/08/17 08:29 Dose: 133 mls/hr Dextrose (Dextrose 5% In Water 1000 Ml) 1,000 mls @ 0 mls/hr IV .Q0M PRN; Protocol; Per Protocol PRN Reason: Hypoglycemia Protocol Fluconazole (Diflucan Iv 200 Mg/100 Ml Ns) 100 mls @ 100 mls/hr IVPB DAILY [facility] Last Admin: 09/08/17 11:37 Dose: 100 mls/hr Insulin Aspart (Novolog) 0 unit SC ACHS [facility] PRN Reason: Protocol Last Admin: 09/08/17 17:19 Dose: Not Given Insulin Detemir (Levemir) 12 unit SC Q12 [facility] Levothyroxine Sodium (Synthroid) 125 mcg PO DAILY@0630 [facility] Last Admin: 09/08/17 05:47 Dose: 125 mcg Ondansetron HCl (Zofran Inj) 4 mg IVP Q6H PRN PRN Reason: Nausea/Vomiting Last Admin: 08/27/17 14:44 Dose: 4 mg Potassium Phos/Sodium Phos (Neutra-Phos) 1 pkt PO TID [facility] Last Admin: 09/08/17 17:19 Dose: 1 pkt Sucralfate (Carafate Oral Susp) 1 gm PO ACBHS [facility] Last Admin: 09/08/17 06:30 Dose: 1 gm Trimethoprim/Sulfamethoxazole (Bactrim Ds Tab) 1 tab PO MWF [facility] Last Admin: 09/08/17 08:31 Dose: 1 tab - Labs Labs: 09/08/17 06:26 09/08/17 06:26 PT 11.1 SECONDS (9.7-12.2) 09/08/17 06:26 INR 1.0 09/08/17 06:26 APTT 26 SECONDS (21-34) 09/08/17 06:26 Attending/Attestation - Attestation I have personally seen and examined this patient.: Yes I have fully participated in the care of the patient.: Yes I have reviewed all pertinent clinical information, including history, physical exam and plan: Yes Notes (Text): AIDS, acute encephalopathy
--- NOTE | 2017-09-03 07:38 | CP.PCM.PN ---
Subjective - Date & Time of Evaluation Date of Evaluation: 09/03/17 Time of Evaluation: 07:35 - Subjective Subjective: Ms. Morel was seen and examined at the bedside. She opens her eyes spontaneously, but starring only to space. She is unable to follow commands, restless in bed. She is currently on NGT feeding and IVF. She has a mitten in the right hand. There is no untoward events overnight. Objective - Vital Signs/Intake and Output Vital Signs (last 24 hours): Temp Pulse Resp BP Pulse Ox 98.4 F 112 H 20 180/89 H 96 09/03/17 00:20 09/03/17 04:21 09/03/17 00:20 09/03/17 04:42 09/02/17 23:20 Intake and Output: 09/03/17 09/03/17 06:59 18:59 Intake Total 80 Output Total 800 Balance -720 - Medications Medications: Current Medications Amlodipine Besylate (Norvasc) 5 mg NG DAILY [facility] Last Admin: 09/02/17 12:06 Dose: 5 mg Aspirin (Ecotrin) 81 mg PO DAILY [facility] Last Admin: 09/02/17 09:55 Dose: 81 mg Dexamethasone (Decadron Inj) 4 mg IVP Q6H [facility] Last Admin: 09/03/17 05:31 Dose: 4 mg Efavirenz/Emtricitabine/Tenofovir (Atripla 600 Mg-200 Mg-300 Mg) 1 tab PO DAILY [facility] Last Admin: 09/02/17 09:55 Dose: 1 tab Famotidine (Pepcid) 20 mg PO DAILY [facility] Last Admin: 09/02/17 09:55 Dose: 20 mg Hydralazine HCl (Apresoline) 10 mg IVP Q6H PRN PRN Reason: Systolic Blood Pressure Last Admin: 09/02/17 21:46 Dose: 10 mg Fluconazole (Diflucan Iv 100 Mg/50 Ml Ns) 50 mls @ 100 mls/hr IVPB DAILY [facility] Last Admin: 09/02/17 09:59 Dose: 100 mls/hr Valproate Sodium 250 mg/ (Sodium Chloride) 102.5 mls @ 100 mls/hr IVPB DAILY [facility] Last Admin: 09/02/17 10:00 Dose: 100 mls/hr Dextrose/Sodium Chloride (Dextrose 5%/0.45% Ns 1000 Ml) 1,000 mls @ 100 mls/hr IV .Q10H [facility] Last Admin: 09/02/17 13:09 Dose: Not Given Insulin Aspart (Novolog) 0 unit SC ACHS [facility] PRN Reason: Protocol Last Admin: 09/03/17 07:29 Dose: Not Given Insulin Detemir (Levemir) 14 unit SC Q12H [facility] Last Admin: 09/02/17 21:44 Dose: 14 unit Levothyroxine Sodium (Synthroid) 125 mcg PO DAILY@0630 [facility] Last Admin: 09/03/17 05:31 Dose: 125 mcg Ondansetron HCl (Zofran Inj) 4 mg IVP Q6H PRN PRN Reason: Nausea/Vomiting Last Admin: 08/27/17 14:44 Dose: 4 mg Potassium Phos/Sodium Phos (Neutra-Phos) 1 pkt PO TID [facility] Last Admin: 09/02/17 18:27 Dose: 1 pkt Sucralfate (Carafate Oral Susp) 1 gm PO ACBHS [facility] Last Admin: 09/03/17 06:35 Dose: 1 gm Trimethoprim/Sulfamethoxazole (Bactrim Ds Tab) 1 tab PO MWF [facility] Last Admin: 09/01/17 08:46 Dose: 1 tab - Labs Labs: 09/02/17 06:45 09/02/17 06:45 PT 11.2 SECONDS (9.7-12.2) 08/08/17 10:10 INR 1.0 08/08/17 10:10 APTT 25 SECONDS (21-34) 08/08/17 10:10 - Constitutional Appears: Cachectic - Head Exam Head Exam: ATRAUMATIC - Neurological Exam Additional comments: She is unable to follow commands, restless. Assessment and Plan (1) Encephalopathy acute Assessment & Plan: Case discussed with Dr. Denney, continue all current medical, physical, occupational, therapies. There is no new recommendation from neurology. Status: Acute
[2017-09-03 07:42] LABS: BASO % 0.3 % (0.0-2.0); HEMATOCRIT 33.8 % (34.0-47.0); LYMPH # 0.9 K/uL (1.0-4.3); MEAN CELL VOLUME 86.7 fL (81.0-99.0); MEAN CORPUSCULAR HGB CONC 34.6 g/dL (33.0-37.0); MEAN PLATELET VOLUME 7.6 fL (7.2-11.7); MONO # 1.2 K/uL (0.0-0.8); MONO % 9.5 % (0.0-10.0); PLATELET COUNT 60 K/uL (130-400); RED CELL DISTRIBUTION WIDTH 14.7 % (11.5-14.5); WHITE BLOOD COUNT 12.3 K/uL (4.8-10.8)
[2017-09-03 08:05] LABS: CHLORIDE 96 mmol/L (98-107); POTASSIUM 4.5 mmol/L (3.6-5.2); SODIUM 129 mmol/L (132-148)
[2017-09-03 08:07] LABS: BILIRUBIN,TOTAL 0.6 mg/dL (0.2-1.3); GFR AFRICAN-AMERICAN > 60
[2017-09-03 08:08] LABS: ALB/GLOB RATIO 0.9 (1.0-2.1); ALKALINE PHOSPHATASE 149 U/L (38-126); ALT/SGPT 23 U/L (9-52); AST/SGOT 27 U/L (14-36); BLOOD UREA NITROGEN 39 mg/dL (7-17); CALCIUM 8.7 mg/dl (8.6-10.4); CARBON DIOXIDE 24 mmol/L (22-30); GLUCOSE,RANDOM 248 mg/dL (65-105); PHOSPHOROUS 1.3 mg/dL (2.5-4.5); TOTAL PROTEIN 7.2 g/dL (6.3-8.3)
[2017-09-03 08:09] LABS: MAGNESIUM 2.2 mg/dL (1.6-2.3)
[2017-09-03] MEDS: Insulin Detemir 100 units/ml Vial (Levemir) SC SCH ×2 (08:37→22:02)
[2017-09-03 09:37] LABS: MYELOCYTE 5 % (0-0); NEUTROPHIL 69 % (50-75); TOTAL CELLS COUNTED 100
[2017-09-03] MEDS: Tmp-Smz 800 mg-160 mg DS Tab PO SCH (10:00)
[2017-09-03] MEDS: Efavirenz/Emtricitabine/Teno 1 TAB PO SCH (10:35)
[2017-09-03] MEDS: Potassium & Sodium Phosphate PO SCH ×3 (10:35→17:38)
[2017-09-03] MEDS: Fluconazole IV 100mg/50 ml NS 50 ML IVPB SCH (10:36)
[2017-09-03] MEDS: Valproate 250 MG in Sodium Chloride 0.9% 100 ML IVPB SCH (10:36)
--- NOTE | 2017-09-03 12:44 | CT ---
PROCEDURE: CT HEAD WITHOUT CONTRAST. HISTORY: AMS, contracture of left arm COMPARISON: Unenhanced Head CT dated 08/29/2017 and unenhanced brain MRI dated 08/29/2017. TECHNIQUE: Axial computed tomography images were obtained through the head/brain without intravenous contrast. Radiation dose: Total exam DLP = 1130.64 mGy-cm. This CT exam was performed using one or more of the following dose reduction techniques: Automated exposure control, adjustment of the mA and/or kV according to patient size, and/or use of iterative reconstruction technique. FINDINGS: HEMORRHAGE: No intracranial hemorrhage. BRAIN: Overall pattern of edema at the bilateral thalami appears of diminished as well as the right internal capsule posterior limb. Edema pattern is unchanged and the bilateral occipital lobes and posterior parietal lobes and is irregularly increased at the vertex bilaterally involving both parietal lobes and posterior frontal lobes. The findings may represent interval worsening of progressive multifocal local encephalopathy. Limited local mass effect appears to efface the local sulci without global shift. VENTRICLES: Unremarkable. No hydrocephalus. CALVARIUM: Unremarkable. PARANASAL SINUSES: Unremarkable as visualized. No significant inflammatory changes. MASTOID AIR CELLS: Unremarkable as visualized. No inflammatory changes. OTHER FINDINGS: None. IMPRESSION: A variable edema pattern is diminishing the bilateral thalami and right internal capsule but increasing at the posterior right frontal and superior parietal lobes likely still reflecting progressive multifocal leukoencephalopathy. Continued clinical correlation and imaging follow-up are advised. No intra hemorrhage or midline shift. Local edema at the affected lobes effaces local sulci.
[2017-09-03 14:11] LABS: HLA-B*5701 Negative
--- NOTE | 2017-09-03 16:46 | PN ---
ENDO FOLLOWUP NOTE LOCATION: Room 654. 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 Her glycemic levels continue to be very poor and suboptimal at this time and the latest glucose levels have ranged from 246 to 250 mg/dL. It was 315 at bedtime last night as noted. She has ongoing enteral tube feedings as given and tolerated. So at this time, we will modify and increase her basal insulin with Levemir to be given as 18 units subcu every 12 hours at 8 a.m. and 8 p.m. daily as ordered. We will continue the low-dose correction scale using Novolog insulin as given. We will titrate incrementally as indicated to optimize metabolic control. We will follow and advise accordingly. Nesha Donaldson MD
[2017-09-04] MEDS: Dexamethasone 4 mg/1 ml IVP SCH ×4 (00:03→17:27)
[2017-09-04] MEDS: Levothyroxine 125 MCG TAB PO SCH (05:42)
[2017-09-04] MEDS: Sucralfate 1 gm/10 ml Oral Susp UD PO SCH ×2 (06:44→22:04)
--- NOTE | 2017-09-04 07:23 | CP.PCM.PN ---
Subjective - Date & Time of Evaluation Date of Evaluation: 09/04/17 Time of Evaluation: 07:23 - Subjective Subjective: Ms. Morel was seen and examined at the bedside. She is more alert today in comparison from previous examination. She denies any pain or discomfort, but unable to verbalize date/ year and place. She still has NGT for feeding. There is no untoward events overnight. Objective - Vital Signs/Intake and Output Vital Signs (last 24 hours): Temp Pulse Resp BP Pulse Ox 98.2 F 98 H 20 167/93 H 96 09/04/17 04:15 09/04/17 04:44 09/04/17 04:15 09/04/17 04:15 09/04/17 04:15 Intake and Output: 09/04/17 09/04/17 06:59 18:59 Intake Total 1180 Output Total 2050 Balance -870 - Medications Medications: Current Medications Amlodipine Besylate (Norvasc) 5 mg NG DAILY [facility] Last Admin: 09/03/17 10:35 Dose: 5 mg Aspirin (Ecotrin) 81 mg PO DAILY [facility] Last Admin: 09/03/17 10:35 Dose: 81 mg Dexamethasone (Decadron Inj) 4 mg IVP Q6H [facility] Last Admin: 09/04/17 05:42 Dose: 4 mg Efavirenz/Emtricitabine/Tenofovir (Atripla 600 Mg-200 Mg-300 Mg) 1 tab PO DAILY [facility] Last Admin: 09/03/17 10:35 Dose: 1 tab Famotidine (Pepcid) 20 mg PO DAILY [facility] Last Admin: 09/03/17 10:55 Dose: 20 mg Hydralazine HCl (Apresoline) 10 mg IVP Q6H PRN PRN Reason: Systolic Blood Pressure Last Admin: 09/02/17 21:46 Dose: 10 mg Fluconazole (Diflucan Iv 100 Mg/50 Ml Ns) 50 mls @ 100 mls/hr IVPB DAILY [facility] Last Admin: 09/03/17 10:36 Dose: 100 mls/hr Valproate Sodium 250 mg/ (Sodium Chloride) 102.5 mls @ 100 mls/hr IVPB DAILY [facility] Last Admin: 09/03/17 10:36 Dose: 100 mls/hr Insulin Aspart (Novolog) 0 unit SC ACHS [facility] PRN Reason: Protocol Last Admin: 09/03/17 22:03 Dose: Not Given Insulin Detemir (Levemir) 18 unit SC Q12H [facility] Last Admin: 09/03/17 22:02 Dose: 18 unit Levothyroxine Sodium (Synthroid) 125 mcg PO DAILY@0630 [facility] Last Admin: 09/04/17 05:42 Dose: 125 mcg Ondansetron HCl (Zofran Inj) 4 mg IVP Q6H PRN PRN Reason: Nausea/Vomiting Last Admin: 08/27/17 14:44 Dose: 4 mg Potassium Phos/Sodium Phos (Neutra-Phos) 1 pkt PO TID [facility] Last Admin: 09/03/17 17:38 Dose: 1 pkt Sucralfate (Carafate Oral Susp) 1 gm PO ACBHS [facility] Last Admin: 09/04/17 06:44 Dose: 1 gm Trimethoprim/Sulfamethoxazole (Bactrim Ds Tab) 1 tab PO MWF [facility] Last Admin: 09/03/17 10:00 Dose: 1 tab - Labs Labs: 09/03/17 07:30 09/03/17 07:30 PT 11.2 SECONDS (9.7-12.2) 08/08/17 10:10 INR 1.0 08/08/17 10:10 APTT 25 SECONDS (21-34) 08/08/17 10:10 - Constitutional Appears: Cachectic - Head Exam Head Exam: ATRAUMATIC, NORMAL INSPECTION, NORMOCEPHALIC - Neurological Exam Neurological Exam: Awake Neuro motor strength exam: Left Upper Extremity: 3, Right Upper Extremity: 4, Left Lower Extremity: 4, Right Lower Extremity: 4 Additional comments: She is restless in bed, moves all extremities spontaneously. She is unable to follow commands, but able to answer few questions such as "How do you feel:, and " Are you comfortable." Assessment and Plan (1) Encephalopathy acute Assessment & Plan: Case discussed with Dr. Denney, continue all current medical, physical, occupational therapies. There is no new recommendation from neurology. Status: Acute
[2017-09-04 07:48] LABS: BASO # 0.1 K/uL (0.0-0.2); BASO % 0.4 % (0.0-2.0); EOS % 0.1 % (0.0-4.0); HEMATOCRIT 32.8 % (34.0-47.0); LYMPH # 0.9 K/uL (1.0-4.3); LYMPH % 6.1 % (20.0-40.0); MEAN CELL VOLUME 86.1 fL (81.0-99.0); MEAN CORPUSCULAR HEMOGLOBIN 29.9 pg (27.0-31.0); MEAN CORPUSCULAR HGB CONC 34.7 g/dL (33.0-37.0); MEAN PLATELET VOLUME 7.6 fL (7.2-11.7); MONO # 1.5 K/uL (0.0-0.8); MONO % 10.2 % (0.0-10.0); RED CELL DISTRIBUTION WIDTH 14.7 % (11.5-14.5); WHITE BLOOD COUNT 14.8 K/uL (4.8-10.8)
[2017-09-04 07:50] LABS: PLATELET COUNT 81 K/uL (130-400)
[2017-09-04] MEDS: (Novolog) Insulin Aspart, Recombinant 100 u/ml 10 ml vial SC SCH ×4 (08:04→22:05)
[2017-09-04] MEDS: Insulin Detemir 100 units/ml Vial (Levemir) SC SCH ×2 (08:05→22:04)
[2017-09-04 08:12] LABS: CHLORIDE 92 mmol/L (98-107); POTASSIUM 4.4 mmol/L (3.6-5.2); SODIUM 124 mmol/L (132-148)
[2017-09-04 08:14] LABS: BILIRUBIN,TOTAL 0.5 mg/dL (0.2-1.3); GFR AFRICAN-AMERICAN > 60
[2017-09-04 08:15] LABS: ALKALINE PHOSPHATASE 152 U/L (38-126); ALT/SGPT 23 U/L (9-52); AST/SGOT 19 U/L (14-36); BLOOD UREA NITROGEN 43 mg/dL (7-17); CARBON DIOXIDE 21 mmol/L (22-30); GLUCOSE,RANDOM 348 mg/dL (65-105); PHOSPHOROUS 2.1 mg/dL (2.5-4.5); TOTAL PROTEIN 6.8 g/dL (6.3-8.3)
[2017-09-04 08:16] LABS: CALCIUM 8.5 mg/dl (8.6-10.4)
[2017-09-04 09:01] LABS: METAMYELOCYTE 1 % (0-0); MYELOCYTE 4 % (0-0); NEUTROPHIL 75 % (50-75); TOTAL CELLS COUNTED 100
--- NOTE | 2017-09-04 10:08 | CP.PCM.PN ---
<Rupesh Sahu - Last Filed: 09/04/17 17:34> Subjective - Date & Time of Evaluation Date of Evaluation: 09/04/17 Time of Evaluation: 10:08 - Subjective Subjective: PGY1 Medicine Note for Dr. Meza Patient seen and examined this morning at bedside. Patient is non-verbal. She made eye contact periodically but was staring out into space for the majority of the examination. ROS unattainable. Objective - Vital Signs/Intake and Output Vital Signs (last 24 hours): Temp Pulse Resp BP Pulse Ox 98.2 F 94 H 18 174/94 H 100 09/04/17 07:40 09/04/17 07:40 09/04/17 07:40 09/04/17 07:40 09/04/17 07:40 Intake and Output: 09/04/17 09/04/17 06:59 18:59 Intake Total 1180 Output Total 2050 Balance -870 - Medications Medications: Current Medications Amlodipine Besylate (Norvasc) 5 mg NG DAILY [facility] Last Admin: 09/03/17 10:35 Dose: 5 mg Aspirin (Ecotrin) 81 mg PO DAILY [facility] Last Admin: 09/03/17 10:35 Dose: 81 mg Dexamethasone (Decadron Inj) 4 mg IVP Q6H [facility] Last Admin: 09/04/17 05:42 Dose: 4 mg Efavirenz/Emtricitabine/Tenofovir (Atripla 600 Mg-200 Mg-300 Mg) 1 tab PO DAILY [facility] Last Admin: 09/03/17 10:35 Dose: 1 tab Famotidine (Pepcid) 20 mg PO DAILY [facility] Last Admin: 09/03/17 10:55 Dose: 20 mg Hydralazine HCl (Apresoline) 10 mg IVP Q6H PRN PRN Reason: Systolic Blood Pressure Last Admin: 09/02/17 21:46 Dose: 10 mg Valproate Sodium 250 mg/ (Sodium Chloride) 102.5 mls @ 100 mls/hr IVPB DAILY [facility] Last Admin: 09/03/17 10:36 Dose: 100 mls/hr Insulin Aspart (Novolog) 0 unit SC ACHS [facility] PRN Reason: Protocol Last Admin: 09/04/17 08:04 Dose: 2 unit Insulin Detemir (Levemir) 18 unit SC Q12H [facility] Last Admin: 09/04/17 08:05 Dose: 18 unit Levothyroxine Sodium (Synthroid) 125 mcg PO DAILY@0630 [facility] Last Admin: 09/04/17 05:42 Dose: 125 mcg Ondansetron HCl (Zofran Inj) 4 mg IVP Q6H PRN PRN Reason: Nausea/Vomiting Last Admin: 08/27/17 14:44 Dose: 4 mg Potassium Phos/Sodium Phos (Neutra-Phos) 1 pkt PO TID [facility] Last Admin: 09/03/17 17:38 Dose: 1 pkt Sucralfate (Carafate Oral Susp) 1 gm PO ACBHS [facility] Last Admin: 09/04/17 06:44 Dose: 1 gm Trimethoprim/Sulfamethoxazole (Bactrim Ds Tab) 1 tab PO MWF [facility] Last Admin: 09/03/17 10:00 Dose: 1 tab - Labs Labs: 09/04/17 07:33 09/04/17 07:33 PT 11.2 SECONDS (9.7-12.2) 08/08/17 10:10 INR 1.0 08/08/17 10:10 APTT 25 SECONDS (21-34) 08/08/17 10:10 - Constitutional Appears: Non-toxic, No Acute Distress, Chronically Ill - Head Exam Head Exam: ATRAUMATIC, NORMOCEPHALIC - Eye Exam Eye Exam: EOMI - ENT Exam ENT Exam: Mucous Membranes Moist - Neck Exam Additional comments: NGT in place - Respiratory Exam Respiratory Exam: Clear to Ausculation Bilateral, NORMAL BREATHING PATTERN. absent: Accessory Muscle Use, Rales, Respiratory Distress - Cardiovascular Exam Cardiovascular Exam: REGULAR RHYTHM, +S1, +S2 - GI/Abdominal Exam GI & Abdominal Exam: Soft, Normal Bowel Sounds. absent: Distended, Firm, Guarding, Rigid, Tenderness - Neurological Exam Neurological Exam: Alert, Awake, Oriented x3 - Psychiatric Exam Psychiatric exam: Normal Affect, Normal Mood - Skin Skin Exam: Dry, Normal Color, Warm Assessment and Plan - Assessment and Plan (Free Text) Plan: Spoke with patient's , Emiliano Hoang, and he states that his daughter in-law , Federico Brunner, is allowed to make decisions on behalf of his . His daughter in law and older son are allowed to be informed of everything. Resident Adelina had a conversation with the older son and daughter in-law to update them on the patient's condition. Discussed with them that the patient has AIDS and her CD4 is 110. This did not happen overnight or within the past 3 months. Discussed that the patient's condition may not improve. Even if her cognitive function does improve, her condition of AIDS is still very serious and is not able to be cured. Her prognosis is very poor. Discussed that there are many different specialists on her case. One of the specialist is Dr. Denney, neuro, and that we want to do a lumbar puncture but we need to transfuse platelets before we would be able to do the procedure. We also want to place a PEG tube. The family agrees to the PEG tube. "We do not want her to whiter away. " They state again that they know she may not recover and that she may not live long, but they do not want to starve. They request to talk to palliative care and Dr. Denney. When asked about the patient's code status, they state, "Give her one cycle, but if she is not going to make it, you can stop." Patient will be a full-code at this time. AIDS, acute encephalopathy 09/03: Patient's platelets still too low for LP even after multiple platelet transfusions. Dr. Denney is requesting platelets be >75. Will discuss with Dr. Denney possibility of performing a LP shortly after a platelet transfusion is completed. Will need to be transfused more platelets. Dr. Denney would like to perform LP under anesthesia due to patient's mental status and inability to follow commands properly. 09/01: Patient was unable to be awoken today. She responded to painful stimuli by pulling away and moaning. She was able to move all four extremities. Discussed with patient's that the patient's prognosis is very poor. He states he understands. Patient will likely need a LP to acquire CSF fluid for further eval. Transfused 1 unit of platelets today. f/u EEG discontinued morphine 08/31: She is somulent. Able to open eyes, random slow movements of arms and legs. Not following any commands. She was started on IV decardon yesterday. She will likley need LP to aquire CSF in the future to again test for JAGUAR virus since imaging via MRI is suggesting progressive multifocal leukoencephalopathy. Previous testing of JAGUAR virus were negative. This being said her platelet count is very low, transfusing 1 unit today. Pending hematology evaluation. 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 Neck MRA 08/29/17: No significant stenosis seen in the visualized bilateral common or internal carotid arteries. Mild right ICA proximal stenosis is identified with plaque identified at the right carotid bulb. Widely patent bilateral common carotids but otherwise, as imaged. Symmetric vertebrobasilar circulation. Head MRA 08/29/17: Suboptimal diagnostic quality due to motion degraded images, allowing for this, no occlusion. Apparent narrowing in bilateral M1 segments could be related to motion artifacts. Patient potentially had a seizure over night. CT (08/22) was negative for any acute findings. Brain MRI was ordered for f/u. patient has not had any more events since then Neurology Consulted, Dr. Denney --> Help appreciated; states that all changes in AMS are most likely due to AIDS Brain MRI w/o contrast(08/22) - Mild diffuse/confluent nonspecific white matter changes as described. Findings are of uncertain etiology though could represent sequela of HIV encephalopathy. PML not excluded. See above discussion for additional differential diagnostic considerations. Questionable secretions/opacification of exuberantly aerated mastoid air cells ramyfing into the left petrous apex however the possibility apical petrositis or small the left petrous CT apex cholesterol granuloma. Repeat Head CT w/o contrast 08/28/17 - Significant motion artifact limits this exam however interval edema is identified at the right greater than left basal ganglia and thalami as well as the bilateral occipital lobes and the right parietal lobe. Is difficult to determine definitively though this is vasogenic or cytotoxic however embolic infarction is questioned. Given the basal ganglia and thalami being affected focally, and anoxic insult is included in the differential diagnosis or even though there is no global loss of vaca-white matter differentiation and edema in this patient. Infectious or metabolic etiologies are not excluded but are not favored. * EEG ordered for morning of 08/23: This is a probably normal EEG. There was increased beta activity noticed intermittently. This could be a normal finding. No focal slowing no seizure like activity was observed. Correlation with clinical findings is needed. 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 Opportunistic Infection ID Dr. Meneses --> help appreciated * Continue Diflucan, bactrim * Started Atripla started 08/27/17 - CT head 08/11 - Negative - MRI 08/12 - unremarkable - LDH - 478 - CD4 - 72 (AIDS confirmed) -->repeat 110 - HIV-1 RNA Qnt (RT-PCR) - 5.80 high - Viral Load: Must r/o infectious causes * CMV - IgG > 10; IgM <30; Dennotes previous infection, no acute infection * Crypto - <1:2 * RPR - nonreactive * Toxoplasma - IgG < 7.2; IgM < 8 AIDS 08/31: On Atripla at this time. This is being crushed and given via NGT * Dr. Meneses recs * Bactrim DS 1 tab PO M/W/F * Atripla [id number](Efavirenz/Emtricitabine/Teno) 1 tab PO daily - script written and placed in chart for pt's to mixing picker tender and fill, so when patient is discharged to [facility], he will be able to take her medication with her, as [facility] does not usually provide HARRT medications. Dr. Sahu discussed with pt's , Emiliano Hoang, on the phone. He stated he understands and will mixing picker tender prescription to fill it by 08/28. * Neupogen given 08/25 * HIV screen Positive, CD4 = 72, repeat CD4 = 110 * hep panel negative * Will f/u recs for HARRT therapy upon discharge. * Patient will need to follow up with HIV clinic for continuation of HARRT therapy as out patient. * [facility] - Clinic at [address], [place] * [facility] - Clinic at [address], [place] Phone Anemia; most likely 2/2 to advanced AIDS 08/31: Patient's platelet count continues to decrease, conset recived for one unit of platelets to be given * Improved to Hgb of 12.7 from 7.1 - patient given 2 units pRBCs on 08/26/17 ( consent given by , Emiliano Hoang, on phone) * continue to monitor Diabetes hypoglycemia protocol RISS only for now Endo consulted, Dr. Nesha Donaldson; appreciate recs * Lantus changed to 12 units HS * Novolog changed to 6 units AC * ISS low HgA1C - 7.1 accuchecks q6h Continue to monitor Hyponatremia; resolved * STOPPED medications due to potential s/e of hyponatremia * Zoloft, Trazodone and IV fluids. * Nephro Consult, Dr. Wong - help appreciated, f/u recs * urine sodium 113 --> 43 * urine osmol 502 --> 176 * serum osmol 276 * will continue to monitor Dysphagia; resolved Chest CT * particulate matter, possibly food, identified within the esophageal lumen intermixed with gas. * Incidental 6mm nodule within superior right breast. CXR * no acute cardiopulmonary disease Neck soft tissue CT * Abnormal circumferential thickening noted of the cervical esophagus. findings could be due to reflux esophagitis but esophageal carcinoma is not excluded. GI consulted, Dr. 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 Prophylactic Care * Heparin 5000u sc q8h - DC'ed due to anemia * SCDs for DVT ppx * Pepcid 20 ivp daily * Fall precautions * 1-1 sitter Case discussed with Dr. Derrick Myersn PGY1 <Wilner Meza - Last Filed: 09/05/17 15:00> Objective - Vital Signs/Intake and Output Vital Signs (last 24 hours): Temp Pulse Resp BP Pulse Ox 98.1 F 96 H 18 186/95 H 100 09/05/17 07:30 09/05/17 07:30 09/05/17 07:30 09/05/17 07:30 09/05/17 07:30 Intake and Output: 09/05/17 09/05/17 06:59 18:59 Intake Total 2360 Output Total 2250 Balance 110 - Medications Medications: Current Medications Amlodipine Besylate (Norvasc) 5 mg NG DAILY [facility] Last Admin: 09/05/17 10:14 Dose: 5 mg Aspirin (Ecotrin) 81 mg PO DAILY [facility] Last Admin: 09/05/17 10:14 Dose: 81 mg Dexamethasone (Decadron Inj) 4 mg IVP Q6H [facility] Last Admin: 09/05/17 11:56 Dose: 4 mg Efavirenz/Emtricitabine/Tenofovir (Atripla 600 Mg-200 Mg-300 Mg) 1 tab PO DAILY [facility] Last Admin: 09/05/17 10:13 Dose: 1 tab Famotidine (Pepcid) 20 mg PO DAILY [facility] Last Admin: 09/05/17 10:14 Dose: 20 mg Hydralazine HCl (Apresoline) 10 mg IVP Q6H PRN PRN Reason: Systolic Blood Pressure Last Admin: 09/05/17 08:53 Dose: 10 mg Valproate Sodium 250 mg/ (Sodium Chloride) 102.5 mls @ 100 mls/hr IVPB DAILY [facility] Last Admin: 09/05/17 10:14 Dose: 100 mls/hr Dextrose/Sodium Chloride (Dextrose 5%/0.9% Ns 1000 Ml) 1,000 mls @ 100 mls/hr IV .Q10H [facility] Last Admin: 09/05/17 14:24 Dose: 100 mls/hr Insulin Aspart (Novolog) 0 unit SC ACHS [facility] PRN Reason: Protocol Last Admin: 09/05/17 11:51 Dose: 2 unit Insulin Detemir (Levemir) 30 unit SC Q12H [facility] Levothyroxine Sodium (Synthroid) 125 mcg PO DAILY@0630 [facility] Last Admin: 09/05/17 06:33 Dose: 125 mcg Ondansetron HCl (Zofran Inj) 4 mg IVP Q6H PRN PRN Reason: Nausea/Vomiting Last Admin: 08/27/17 14:44 Dose: 4 mg Potassium Phos/Sodium Phos (Neutra-Phos) 1 pkt PO TID [facility] Last Admin: 09/05/17 14:11 Dose: 1 pkt Sucralfate (Carafate Oral Susp) 1 gm PO ACBHS [facility] Last Admin: 09/05/17 06:33 Dose: 1 gm Trimethoprim/Sulfamethoxazole (Bactrim Ds Tab) 1 tab PO MWF [facility] Last Admin: 09/05/17 10:10 Dose: 1 tab - Labs Labs: 09/05/17 06:19 09/05/17 06:19 PT 11.2 SECONDS (9.7-12.2) 08/08/17 10:10 INR 1.0 08/08/17 10:10 APTT 25 SECONDS (21-34) 08/08/17 10:10 Attending/Attestation - Attestation I have personally seen and examined this patient.: Yes I have fully participated in the care of the patient.: Yes I have reviewed all pertinent clinical information, including history, physical exam and plan: Yes Notes (Text): 09/05/17 14:58 Patient was seen and examined,Discussed with the resident,Patient is lying comfortable.No eye contacts.open her eyes.Not following command. Plan discussed with resident.Pending GT placement.LP not done due to low platelets
[2017-09-04] MEDS: Fluconazole IV 100mg/50 ml NS 50 ML IVPB SCH (10:33)
[2017-09-04] MEDS: Valproate 250 MG in Sodium Chloride 0.9% 100 ML IVPB SCH (10:33)
[2017-09-04] MEDS: Efavirenz/Emtricitabine/Teno 1 TAB PO SCH (10:34)
[2017-09-04] MEDS: Potassium & Sodium Phosphate PO SCH ×3 (10:34→17:27)
[2017-09-04] MEDS: Dextrose 5%/0.9% NS 1,000 ML IV SCH (17:28)
--- NOTE | 2017-09-04 21:11 | PN ---
ENDO FOLLOWUP NOTE LOCATION: Room 645. This is a 57-year-old female with recent uncontrolled type 1 insulin-dependent diabetes now being followed closely for metabolic management. She is tolerating the tube feedings as given at this time. Her glycemic levels are fluctuating but improved. The latest chemistries showed a BUN of 43, sodium 124, potassium 4.4, chloride 92, CO2 of 21, glucose 348, and creatinine 0.9. Her latest glucose levels today have ranged from 152 to 408 mg/dL. We will titrate once again her Levemir to higher dose of 24 units subcu every 12 hours at 8 a.m. and 8 p.m. daily as ordered. We will titrate incrementally as indicated to optimize metabolic control. We will continue the enteral tube feedings to optimize the caloric and protein requirements as noted. We will follow. Nesha Donaldson MD
[2017-09-05] MEDS: Dexamethasone 4 mg/1 ml IVP SCH ×4 (00:27→17:15)
[2017-09-05] MEDS: Dextrose 5%/0.9% NS 1,000 ML IV SCH ×4 (03:17→22:47)
[2017-09-05 06:33] LABS: BASO % 0.1 % (0.0-2.0); MEAN CELL VOLUME 85.5 fL (81.0-99.0); MEAN CORPUSCULAR HEMOGLOBIN 29.6 pg (27.0-31.0); MEAN CORPUSCULAR HGB CONC 34.6 g/dL (33.0-37.0); MEAN PLATELET VOLUME 7.8 fL (7.2-11.7); MONO # 2.1 K/uL (0.0-0.8); MONO % 10.2 % (0.0-10.0); PLATELET COUNT 128 K/uL (130-400); RED CELL DISTRIBUTION WIDTH 14.4 % (11.5-14.5); WHITE BLOOD COUNT 20.6 K/uL (4.8-10.8)
[2017-09-05] MEDS: Sucralfate 1 gm/10 ml Oral Susp UD PO SCH ×2 (06:33→22:47)
[2017-09-05] MEDS: Levothyroxine 125 MCG TAB PO SCH (06:33)
[2017-09-05 07:34] LABS: CHLORIDE 97 mmol/L (98-107); POTASSIUM 4.2 mmol/L (3.6-5.2); SODIUM 129 mmol/L (132-148)
[2017-09-05 07:36] LABS: BILIRUBIN,TOTAL 0.5 mg/dL (0.2-1.3); GFR AFRICAN-AMERICAN > 60
[2017-09-05 07:37] LABS: ALB/GLOB RATIO 0.9 (1.0-2.1); ALKALINE PHOSPHATASE 133 U/L (38-126); ALT/SGPT 24 U/L (9-52); AST/SGOT 28 U/L (14-36); BLOOD UREA NITROGEN 43 mg/dL (7-17); CALCIUM 8.7 mg/dl (8.6-10.4); CARBON DIOXIDE 23 mmol/L (22-30); GLUCOSE,RANDOM 273 mg/dL (65-105); PHOSPHOROUS 2.4 mg/dL (2.5-4.5); TOTAL PROTEIN 7.1 g/dL (6.3-8.3)
[2017-09-05 07:38] LABS: MAGNESIUM 1.9 mg/dL (1.6-2.3)
--- NOTE | 2017-09-05 07:40 | CP.PCM.PN ---
Subjective - Date & Time of Evaluation Date of Evaluation: 09/05/17 Time of Evaluation: 07:37 - Subjective Subjective: Ms. Morel was seen and examined at the bedside. She is more alert, response appropriately to questions. She denies any headache, dizziness, blurry vision, but claims of feeling weak. She is not in any kind of distress. There was no untoward events overnight. Objective - Vital Signs/Intake and Output Vital Signs (last 24 hours): Temp Pulse Resp BP Pulse Ox 97.6 F 91 H 20 163/91 H 99 09/04/17 23:10 09/05/17 00:00 09/04/17 23:10 09/04/17 23:10 09/04/17 23:10 Intake and Output: 09/05/17 09/05/17 06:59 18:59 Intake Total 2360 Output Total 2250 Balance 110 - Medications Medications: Current Medications Amlodipine Besylate (Norvasc) 5 mg NG DAILY [facility] Last Admin: 09/04/17 10:34 Dose: 5 mg Aspirin (Ecotrin) 81 mg PO DAILY [facility] Last Admin: 09/04/17 10:34 Dose: 81 mg Dexamethasone (Decadron Inj) 4 mg IVP Q6H [facility] Last Admin: 09/05/17 06:57 Dose: 4 mg Efavirenz/Emtricitabine/Tenofovir (Atripla 600 Mg-200 Mg-300 Mg) 1 tab PO DAILY [facility] Last Admin: 09/04/17 10:34 Dose: 1 tab Famotidine (Pepcid) 20 mg PO DAILY [facility] Last Admin: 09/04/17 10:34 Dose: 20 mg Hydralazine HCl (Apresoline) 10 mg IVP Q6H PRN PRN Reason: Systolic Blood Pressure Last Admin: 09/02/17 21:46 Dose: 10 mg Valproate Sodium 250 mg/ (Sodium Chloride) 102.5 mls @ 100 mls/hr IVPB DAILY [facility] Last Admin: 09/04/17 10:33 Dose: 100 mls/hr Dextrose/Sodium Chloride (Dextrose 5%/0.9% Ns 1000 Ml) 1,000 mls @ 100 mls/hr IV .Q10H [facility] Last Admin: 09/05/17 03:17 Dose: 100 mls/hr Insulin Aspart (Novolog) 0 unit SC ACHS [facility] PRN Reason: Protocol Last Admin: 09/04/17 22:05 Dose: Not Given Insulin Detemir (Levemir) 24 unit SC Q12H [facility] Last Admin: 09/04/17 22:04 Dose: 24 unit Levothyroxine Sodium (Synthroid) 125 mcg PO DAILY@0630 [facility] Last Admin: 09/05/17 06:33 Dose: 125 mcg Ondansetron HCl (Zofran Inj) 4 mg IVP Q6H PRN PRN Reason: Nausea/Vomiting Last Admin: 08/27/17 14:44 Dose: 4 mg Potassium Phos/Sodium Phos (Neutra-Phos) 1 pkt PO TID [facility] Last Admin: 09/04/17 17:27 Dose: 1 pkt Sucralfate (Carafate Oral Susp) 1 gm PO ACBHS [facility] Last Admin: 09/05/17 06:33 Dose: 1 gm Trimethoprim/Sulfamethoxazole (Bactrim Ds Tab) 1 tab PO MWF [facility] Last Admin: 09/03/17 10:00 Dose: 1 tab - Labs Labs: 09/05/17 06:19 09/05/17 06:19 PT 11.2 SECONDS (9.7-12.2) 08/08/17 10:10 INR 1.0 08/08/17 10:10 APTT 25 SECONDS (21-34) 08/08/17 10:10 - Constitutional Appears: Cachectic - Head Exam Head Exam: ATRAUMATIC - Neurological Exam Neurological Exam: Alert, Awake Neuro motor strength exam: Left Upper Extremity: 3, Right Upper Extremity: 3, Left Lower Extremity: 4, Right Lower Extremity: 4 Additional comments: She follows commands such as raising her arms, finger accommodation. Sensation remains intact. Assessment and Plan (1) Encephalopathy acute Assessment & Plan: Case discussed with Dr. Denney, continue all current medical, physical, and occupational therapies. There is no new recommendation from neurology. Status: Acute
[2017-09-05] MEDS: (Novolog) Insulin Aspart, Recombinant 100 u/ml 10 ml vial SC SCH ×4 (07:58→22:47)
--- NOTE | 2017-09-05 07:58 | CP.PCM.PN ---
Addendum entered and electronically signed by Rupesh Sahu DO 09/05/17 14:31 : Spoke to Dr. Cervantes about PEG tube evaluation, he requested that someone else be consulted since he has not seen the patient since . Discussed with Dr. Oshea, he requested specifically that Dr. Estrada be consulted for a second GI opinion. Dr. Estrada's fellow Dr. Shah called and informed. Dr. Shah stated that he will see the patient in the morning tomorrow and will plan for PEG placement either friday or friday next week. Original Note: <Rupesh Sahu - Last Filed: 09/05/17 14:03> Subjective - Date & Time of Evaluation Date of Evaluation: 09/05/17 Time of Evaluation: 07:54 - Subjective Subjective: PGY1 Medicine Note for Dr. Meza Patient was seen and examined. Patient was awake and although lethargic, she was alert. When asked where she was, she stated the hospital! She said she was not in any pain. Denied f/c, n/v, sob, abd pain or chest pain. Objective - Vital Signs/Intake and Output Vital Signs (last 24 hours): Temp Pulse Resp BP Pulse Ox 97.6 F 91 H 20 163/91 H 99 09/04/17 23:10 09/05/17 00:00 09/04/17 23:10 09/04/17 23:10 09/04/17 23:10 Intake and Output: 09/05/17 09/05/17 06:59 18:59 Intake Total 2360 Output Total 2250 Balance 110 - Medications Medications: Current Medications Amlodipine Besylate (Norvasc) 5 mg NG DAILY [facility] Last Admin: 09/04/17 10:34 Dose: 5 mg Aspirin (Ecotrin) 81 mg PO DAILY [facility] Last Admin: 09/04/17 10:34 Dose: 81 mg Dexamethasone (Decadron Inj) 4 mg IVP Q6H [facility] Last Admin: 09/05/17 06:57 Dose: 4 mg Efavirenz/Emtricitabine/Tenofovir (Atripla 600 Mg-200 Mg-300 Mg) 1 tab PO DAILY [facility] Last Admin: 09/04/17 10:34 Dose: 1 tab Famotidine (Pepcid) 20 mg PO DAILY [facility] Last Admin: 09/04/17 10:34 Dose: 20 mg Hydralazine HCl (Apresoline) 10 mg IVP Q6H PRN PRN Reason: Systolic Blood Pressure Last Admin: 09/02/17 21:46 Dose: 10 mg Valproate Sodium 250 mg/ (Sodium Chloride) 102.5 mls @ 100 mls/hr IVPB DAILY [facility] Last Admin: 09/04/17 10:33 Dose: 100 mls/hr Dextrose/Sodium Chloride (Dextrose 5%/0.9% Ns 1000 Ml) 1,000 mls @ 100 mls/hr IV .Q10H [facility] Last Admin: 09/05/17 03:17 Dose: 100 mls/hr Insulin Aspart (Novolog) 0 unit SC ACHS [facility] PRN Reason: Protocol Last Admin: 09/04/17 22:05 Dose: Not Given Insulin Detemir (Levemir) 24 unit SC Q12H [facility] Last Admin: 09/04/17 22:04 Dose: 24 unit Levothyroxine Sodium (Synthroid) 125 mcg PO DAILY@0630 [facility] Last Admin: 09/05/17 06:33 Dose: 125 mcg Ondansetron HCl (Zofran Inj) 4 mg IVP Q6H PRN PRN Reason: Nausea/Vomiting Last Admin: 08/27/17 14:44 Dose: 4 mg Potassium Phos/Sodium Phos (Neutra-Phos) 1 pkt PO TID [facility] Last Admin: 09/04/17 17:27 Dose: 1 pkt Sucralfate (Carafate Oral Susp) 1 gm PO ACBHS [facility] Last Admin: 09/05/17 06:33 Dose: 1 gm Trimethoprim/Sulfamethoxazole (Bactrim Ds Tab) 1 tab PO MWF [facility] Last Admin: 09/03/17 10:00 Dose: 1 tab - Labs Labs: 09/05/17 06:19 09/05/17 06:19 PT 11.2 SECONDS (9.7-12.2) 08/08/17 10:10 INR 1.0 08/08/17 10:10 APTT 25 SECONDS (21-34) 08/08/17 10:10 - Constitutional Appears: No Acute Distress, Chronically Ill - Head Exam Head Exam: ATRAUMATIC, NORMOCEPHALIC - Eye Exam Eye Exam: EOMI. absent: Scleral icterus - ENT Exam ENT Exam: Mucous Membranes Moist - Neck Exam Neck Exam: Full ROM. absent: Tenderness - Respiratory Exam Respiratory Exam: Clear to Ausculation Bilateral, NORMAL BREATHING PATTERN. absent: Accessory Muscle Use, Rales, Wheezes, Respiratory Distress - Cardiovascular Exam Cardiovascular Exam: REGULAR RHYTHM, +S1 - GI/Abdominal Exam GI & Abdominal Exam: Soft, Normal Bowel Sounds. absent: Distended, Firm, Guarding, Rigid, Tenderness - Neurological Exam Neurological Exam: Alert (lethargic, slow moving.), Awake - Psychiatric Exam Psychiatric exam: Flat Affect - Skin Skin Exam: Dry, Intact, Normal Color, Warm Assessment and Plan - Assessment and Plan (Free Text) Plan: Spoke to patient's son, Remigio Brunner, and [id number], Federico Brunner, today. They stated that the patient's family will be coming this weekend. They requested that no medical information be shared with the family. They asked that we instruct any family members with questions to ask either Remigio or Federico themselves. They also requested to speak to palliative medicine. They can call Federico Brunner's phone number . AIDS, acute encephalopathy 09/05: Patient shakes head yes and no to questions today and actually spoke! When asked where she was, patient responded with, "the hospital." Patient is still very lethargic, but cognition appears to be improving. Will continue to monitor. Patient is still currently receiving tube feedings through the NG tube. Dr. Cervantes re-consulted for PEG tube evaluation. 09/03: Patient's platelets still too low for LP even after multiple platelet transfusions. Dr. Denney is requesting platelets be >75. Will discuss with Dr. Denney possibility of performing a LP shortly after a platelet transfusion is completed. Will need to be transfused more platelets. Dr. Denney would like to perform LP under anesthesia due to patient's mental status and inability to follow commands properly. 09/01: Patient was unable to be awoken today. She responded to painful stimuli by pulling away and moaning. She was able to move all four extremities. Discussed with patient's that the patient's prognosis is very poor. He states he understands. Patient will likely need a LP to acquire CSF fluid for further eval. Transfused 1 unit of platelets today. f/u EEG discontinued morphine 08/31: She is somulent. Able to open eyes, random slow movements of arms and legs. Not following any commands. She was started on IV decardon yesterday. She will likley need LP to aquire CSF in the future to again test for JAGUAR virus since imaging via MRI is suggesting progressive multifocal leukoencephalopathy. Previous testing of JAGUAR virus were negative. This being said her platelet count is very low, transfusing 1 unit today. Pending hematology evaluation. 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 Neck MRA 08/29/17: No significant stenosis seen in the visualized bilateral common or internal carotid arteries. Mild right ICA proximal stenosis is identified with plaque identified at the right carotid bulb. Widely patent bilateral common carotids but otherwise, as imaged. Symmetric vertebrobasilar circulation. Head MRA 08/29/17: Suboptimal diagnostic quality due to motion degraded images, allowing for this, no occlusion. Apparent narrowing in bilateral M1 segments could be related to motion artifacts. Patient potentially had a seizure over night. CT (08/22) was negative for any acute findings. Brain MRI was ordered for f/u. patient has not had any more events since then Neurology Consulted, Dr. Denney --> Help appreciated; states that all changes in AMS are most likely due to AIDS Brain MRI w/o contrast(08/22) - Mild diffuse/confluent nonspecific white matter changes as described. Findings are of uncertain etiology though could represent sequela of HIV encephalopathy. PML not excluded. See above discussion for additional differential diagnostic considerations. Questionable secretions/opacification of exuberantly aerated mastoid air cells ramyfing into the left petrous apex however the possibility apical petrositis or small the left petrous CT apex cholesterol granuloma. Repeat Head CT w/o contrast 08/28/17 - Significant motion artifact limits this exam however interval edema is identified at the right greater than left basal ganglia and thalami as well as the bilateral occipital lobes and the right parietal lobe. Is difficult to determine definitively though this is vasogenic or cytotoxic however embolic infarction is questioned. Given the basal ganglia and thalami being affected focally, and anoxic insult is included in the differential diagnosis or even though there is no global loss of vaca-white matter differentiation and edema in this patient. Infectious or metabolic etiologies are not excluded but are not favored. * EEG ordered for morning of 08/23: This is a probably normal EEG. There was increased beta activity noticed intermittently. This could be a normal finding. No focal slowing no seizure like activity was observed. Correlation with clinical findings is needed. * JAGUAR virus <500 = negative * HLA-B57:01 sensitivity, awaiting results * Started on Depakote 250mg PO daily --> patient unable to swallow, NGT placed and started on valproate 250mg IVP daily AMS 12/26 AIDS Dementia Vs. Opportunistic Infection ID Dr. Meneses --> help appreciated * Continue Diflucan, bactrim * Started Atripla started 08/27/17 - CT head 08/11 - Negative - MRI 08/12 - unremarkable - LDH - 478 - CD4 - 72 (AIDS confirmed) -->repeat 110 - HIV-1 RNA Qnt (RT-PCR) - 5.80 high - Viral Load: Must r/o infectious causes * CMV - IgG > 10; IgM <30; Dennotes previous infection, no acute infection * Crypto - <1:2 * RPR - nonreactive * Toxoplasma - IgG < 7.2; IgM < 8 AIDS 08/31: On Atripla at this time. This is being crushed and given via NGT * Dr. Meneses recs * Bactrim DS 1 tab PO M/W/F * Atripla [id number](Efavirenz/Emtricitabine/Teno) 1 tab PO daily - script written and placed in chart for pt's to picker / packer and fill, so when patient is discharged to [facility], he will be able to take her medication with her, as [facility] does not usually provide HARRT medications. Dr. Sahu discussed with pt's , Emiliano Hoang, on the phone. He stated he understands and will picker / packer prescription to fill it by 08/28. * Neupogen given 08/25 * HIV screen Positive, CD4 = 72, repeat CD4 = 110 * hep panel negative * Will f/u recs for HARRT therapy upon discharge. * Patient will need to follow up with HIV clinic for continuation of HARRT therapy as out patient. * [facility] - Clinic at [address] [place] [address] * [facility] - Clinic at [address] [place] [address] Phone Anemia; most likely 2/2 to advanced AIDS 08/31: Patient's platelet count continues to decrease, conset recived for one unit of platelets to be given * Improved to Hgb of 12.7 from 7.1 - patient given 2 units pRBCs on 08/26/17 ( consent given by , Emiliano Hoang, on phone) * continue to monitor Diabetes hypoglycemia protocol RISS only for now Endo consulted, Dr. Nesha Donaldson; appreciate recs * Lantus changed to 12 units HS * Novolog changed to 6 units AC * ISS low HgA1C - 7.1 accuchecks q6h Continue to monitor Hyponatremia; resolved * STOPPED medications due to potential s/e of hyponatremia * Zoloft, Trazodone and IV fluids. * Nephro Consult, Dr. Wong - help appreciated, f/u recs * urine sodium 113 --> 43 * urine osmol 502 --> 176 * serum osmol 276 * will continue to monitor Dysphagia; resolved Chest CT * particulate matter, possibly food, identified within the esophageal lumen intermixed with gas. * Incidental 6mm nodule within superior right breast. CXR * no acute cardiopulmonary disease Neck soft tissue CT * Abnormal circumferential thickening noted of the cervical esophagus. findings could be due to reflux esophagitis but esophageal carcinoma is not excluded. GI consulted, Dr. 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 Prophylactic Care * Heparin 5000u sc q8h - DC'ed due to anemia * SCDs for DVT ppx * Pepcid 20 ivp daily * Fall precautions * 1-1 sitter Case discussed with Dr. Derrick Goddard Adelina PGY1 <Wilner Meza - Last Filed: 09/05/17 18:12> Objective - Vital Signs/Intake and Output Vital Signs (last 24 hours): Temp Pulse Resp BP Pulse Ox 98.7 F 109 H 20 162/91 H 100 09/05/17 15:39 09/05/17 15:39 09/05/17 15:39 09/05/17 15:39 09/05/17 15:39 Intake and Output: 09/05/17 09/05/17 06:59 18:59 Intake Total 2360 1660 Output Total 2250 2600 Balance 110 -940 - Medications Medications: Current Medications Amlodipine Besylate (Norvasc) 5 mg NG DAILY [facility] Last Admin: 09/05/17 10:14 Dose: 5 mg Aspirin (Ecotrin) 81 mg PO DAILY [facility] Last Admin: 09/05/17 10:14 Dose: 81 mg Dexamethasone (Decadron Inj) 4 mg IVP Q6H [facility] Last Admin: 09/05/17 17:15 Dose: 4 mg Efavirenz/Emtricitabine/Tenofovir (Atripla 600 Mg-200 Mg-300 Mg) 1 tab PO DAILY [facility] Last Admin: 09/05/17 10:13 Dose: 1 tab Famotidine (Pepcid) 20 mg PO DAILY [facility] Last Admin: 09/05/17 10:14 Dose: 20 mg Hydralazine HCl (Apresoline) 10 mg IVP Q6H PRN PRN Reason: Systolic Blood Pressure Last Admin: 09/05/17 08:53 Dose: 10 mg Valproate Sodium 250 mg/ (Sodium Chloride) 102.5 mls @ 100 mls/hr IVPB DAILY [facility] Last Admin: 09/05/17 10:14 Dose: 100 mls/hr Dextrose/Sodium Chloride (Dextrose 5%/0.9% Ns 1000 Ml) 1,000 mls @ 100 mls/hr IV .Q10H [facility] Last Admin: 09/05/17 14:24 Dose: 100 mls/hr Insulin Aspart (Novolog) 0 unit SC ACHS [facility] PRN Reason: Protocol Last Admin: 09/05/17 17:07 Dose: Not Given Insulin Detemir (Levemir) 30 unit SC Q12H [facility] Levothyroxine Sodium (Synthroid) 125 mcg PO DAILY@0630 [facility] Last Admin: 09/05/17 06:33 Dose: 125 mcg Ondansetron HCl (Zofran Inj) 4 mg IVP Q6H PRN PRN Reason: Nausea/Vomiting Last Admin: 08/27/17 14:44 Dose: 4 mg Potassium Phos/Sodium Phos (Neutra-Phos) 1 pkt PO TID [facility] Last Admin: 09/05/17 17:15 Dose: 1 pkt Sucralfate (Carafate Oral Susp) 1 gm PO ACBHS [facility] Last Admin: 09/05/17 06:33 Dose: 1 gm Trimethoprim/Sulfamethoxazole (Bactrim Ds Tab) 1 tab PO MWF [facility] Last Admin: 09/05/17 10:10 Dose: 1 tab - Labs Labs: 09/05/17 06:19 09/05/17 06:19 PT 11.2 SECONDS (9.7-12.2) 08/08/17 10:10 INR 1.0 08/08/17 10:10 APTT 25 SECONDS (21-34) 08/08/17 10:10 Attending/Attestation - Attestation I have personally seen and examined this patient.: Yes I have fully participated in the care of the patient.: Yes I have reviewed all pertinent clinical information, including history, physical exam and plan: Yes Notes (Text): 09/05/17 18:07 Patient was seen and examined.Discussed with her Son Remigio Brunner and daughter in law .Patient's wanted their son Kannan Flood to make decision for her.Patient was not following command on examination. Her medical charge reviewed and plan discussed with the resident.Noted reviewed.plan agreed.follow GI for PEG,monitor labs and continue current meds
[2017-09-05 09:04] LABS: MYELOCYTE 3 % (0-0); NEUTROPHIL 83 % (50-75); TOTAL CELLS COUNTED 100
[2017-09-05] MEDS: Tmp-Smz 800 mg-160 mg DS Tab PO SCH (10:10)
[2017-09-05] MEDS: Efavirenz/Emtricitabine/Teno 1 TAB PO SCH (10:13)
[2017-09-05] MEDS: Valproate 250 MG in Sodium Chloride 0.9% 100 ML IVPB SCH (10:14)
[2017-09-05] MEDS: Potassium & Sodium Phosphate PO SCH ×3 (10:14→17:15)
[2017-09-05] MEDS: Insulin Detemir 100 units/ml Vial (Levemir) SC SCH ×2 (10:18→21:00)
--- NOTE | 2017-09-05 14:02 | PN ---
ENDO FOLLOWUP NOTE LOCATION: In room #654. SUBJECTIVE: This is a 57-year-old female with recent uncontrolled type 1 insulin-dependent diabetes, currently on IV steroid therapy been given for aggressive multifocal leukoencephalopathy as noted. Her glycemic levels are fluctuating, but improved as noted. She is tolerating the ongoing tube feedings as given. Her latest glucose levels have ranged from 250 to 282 mg/dL. Her latest chemistry showed a BUN of 43, sodium 129, potassium 4.2, chloride 97, CO2 of 23, glucose 273, creatinine 0.9; so at this time, we will modify once again her basal insulin and increase the Levemir to 30 units subQ every 12 hours at 8 a.m. and 8 p.m. daily as ordered. We will obtain serial chemistries and supplement accordingly as needed. We will also continue her tube feedings as given to optimize her caloric and protein requirements as ordered. We will titrate her dose regimen on a day-to-day basis to optimize her metabolic control. We will follow. Nesha Donaldson MD
[2017-09-05] MEDS: Aztreonam 2 GM in Sodium Chloride 0.9% 100 ML IVPB SCH (21:00)
[2017-09-05] MEDS: Vancomycin 1 gm/NS 200 ml 1 GM/200 ML BAG IVPB SCH (22:00)
[2017-09-06] MEDS: Dexamethasone 4 mg/1 ml IVP SCH ×5 (00:51→23:59)
[2017-09-06] MEDS: Dextrose 5%/0.9% NS 1,000 ML IV SCH ×3 (04:00→19:04)
[2017-09-06] MEDS: Aztreonam 2 GM in Sodium Chloride 0.9% 100 ML IVPB SCH ×3 (04:41→19:02)
[2017-09-06] MEDS ORDERED: Glucagon Recombinant 1 mg Inj IM PRN (06:15)
[2017-09-06] MEDS: Dextrose 50% SYRINGE Inj (50 ml) IV PRN ×2 (06:20→16:30)
[2017-09-06] MEDS: Sucralfate 1 gm/10 ml Oral Susp UD PO SCH ×2 (06:35→22:10)
[2017-09-06] MEDS: Levothyroxine 125 MCG TAB PO SCH (06:36)
[2017-09-06 07:10] LABS: BASO % 0.2 % (0.0-2.0); EOS % 0.1 % (0.0-4.0); HEMATOCRIT 30.9 % (34.0-47.0); LYMPH # 1.1 K/uL (1.0-4.3); LYMPH % 4.7 % (20.0-40.0); MEAN CELL VOLUME 85.9 fL (81.0-99.0); MEAN CORPUSCULAR HEMOGLOBIN 29.3 pg (27.0-31.0); MEAN CORPUSCULAR HGB CONC 34.1 g/dL (33.0-37.0); MEAN PLATELET VOLUME 7.9 fL (7.2-11.7); MONO # 2.3 K/uL (0.0-0.8); MONO % 9.7 % (0.0-10.0); PLATELET COUNT 130 K/uL (130-400); RED CELL DISTRIBUTION WIDTH 14.8 % (11.5-14.5); WHITE BLOOD COUNT 23.4 K/uL (4.8-10.8)
--- NOTE | 2017-09-06 07:34 | CP.PCM.PN ---
<Alex Singleton - Last Filed: 09/06/17 13:06> Subjective - Date & Time of Evaluation Date of Evaluation: 09/06/17 Time of Evaluation: 08:00 - Subjective Subjective: PGY-[address] Meza Patient seen and examined. Patient was awake and lethargic. Patient looked at me when I was asking questions but was unable to answer. Patient simply nodded her head and went back to sleep. Objective - Vital Signs/Intake and Output Vital Signs (last 24 hours): Temp Pulse Resp BP Pulse Ox 98.8 F 94 H 20 164/89 H 96 09/05/17 23:15 09/06/17 04:00 09/05/17 23:15 09/05/17 23:15 09/05/17 23:15 Intake and Output: 09/06/17 09/06/17 06:59 18:59 Intake Total 2110 Output Total 950 Balance 1160 - Medications Medications: Current Medications Amlodipine Besylate (Norvasc) 5 mg NG DAILY JESSICA Last Admin: 09/05/17 10:14 Dose: 5 mg Aspirin (Ecotrin) 81 mg PO DAILY JESSICA Last Admin: 09/05/17 10:14 Dose: 81 mg Dexamethasone (Decadron Inj) 4 mg IVP Q6H JESS[facility] Last Admin: 09/06/17 06:35 Dose: 4 mg Dextrose (Dextrose 50% Inj) 0 ml IV STAT PRN; Protocol PRN Reason: Hyglycemia Protocol Last Admin: 09/06/17 06:20 Dose: 50 ml Dextrose (Glutose 15) 0 gm PO ONCE PRN; Protocol PRN Reason: Hypoglycemia Protocol Efavirenz/Emtricitabine/Tenofovir (Atripla 600 Mg-200 Mg-300 Mg) 1 tab PO DAILY JESSICA Last Admin: 09/05/17 10:13 Dose: 1 tab Famotidine (Pepcid) 20 mg PO DAILY JESSICA Last Admin: 09/05/17 10:14 Dose: 20 mg Glucagon (Glucagen Diagnostic Kit) 0 mg IM STAT PRN; Protocol PRN Reason: Hypoglycemia Protocol Hydralazine HCl (Apresoline) 10 mg IVP Q6H PRN PRN Reason: Systolic Blood Pressure Last Admin: 09/05/17 08:53 Dose: 10 mg Valproate Sodium 250 mg/ (Sodium Chloride) 102.5 mls @ 100 mls/hr IVPB DAILY JESSICA Last Admin: 09/05/17 10:14 Dose: 100 mls/hr Dextrose/Sodium Chloride (Dextrose 5%/0.9% Ns 1000 Ml) 1,000 mls @ 100 mls/hr IV .Q10H [facility] Last Admin: 09/06/17 04:00 Dose: 100 mls/hr Aztreonam 2 gm/ Sodium (Chloride) 100 mls @ 100 mls/hr IVPB Q8H [facility] Last Admin: 09/06/17 04:41 Dose: 100 mls/hr Vancomycin/Sodium Chloride (Vancocin) 1 gm in 200 mls @ 133 mls/hr IVPB Q12H [facility] Stop: 09/10/17 21:01 Last Admin: 09/05/17 22:00 Dose: 133 mls/hr Dextrose (Dextrose 5% In Water 1000 Ml) 1,000 mls @ 0 mls/hr IV .Q0M PRN; Protocol; Per Protocol PRN Reason: Hypoglycemia Protocol Insulin Aspart (Novolog) 0 unit SC ACHS [facility] PRN Reason: Protocol Last Admin: 09/05/17 22:47 Dose: Not Given Insulin Detemir (Levemir) 30 unit SC Q12H [facility] Last Admin: 09/05/17 21:00 Dose: 30 unit Levothyroxine Sodium (Synthroid) 125 mcg PO DAILY@0630 [facility] Last Admin: 09/06/17 06:36 Dose: 125 mcg Ondansetron HCl (Zofran Inj) 4 mg IVP Q6H PRN PRN Reason: Nausea/Vomiting Last Admin: 08/27/17 14:44 Dose: 4 mg Potassium Phos/Sodium Phos (Neutra-Phos) 1 pkt PO TID [facility] Last Admin: 09/05/17 17:15 Dose: 1 pkt Sucralfate (Carafate Oral Susp) 1 gm PO ACBHS [facility] Last Admin: 09/06/17 06:35 Dose: 1 gm Trimethoprim/Sulfamethoxazole (Bactrim Ds Tab) 1 tab PO MWF [facility] Last Admin: 09/05/17 10:10 Dose: 1 tab - Labs Labs: 09/06/17 07:03 09/05/17 06:19 PT 11.2 SECONDS (9.7-12.2) 08/08/17 10:10 INR 1.0 08/08/17 10:10 APTT 25 SECONDS (21-34) 08/08/17 10:10 - Constitutional Appears: No Acute Distress, Chronically Ill - Head Exam Head Exam: ATRAUMATIC, NORMOCEPHALIC - Eye Exam Eye Exam: Normal appearance - ENT Exam ENT Exam: Mucous Membranes Moist Additional comments: NGT in place - Respiratory Exam Respiratory Exam: Clear to Ausculation Bilateral, NORMAL BREATHING PATTERN. absent: Rales, Rhonchi, Wheezes - Cardiovascular Exam Cardiovascular Exam: REGULAR RHYTHM, +S1, +S2 - GI/Abdominal Exam GI & Abdominal Exam: Soft, Normal Bowel Sounds. absent: Distended, Tenderness - Extremities Exam Extremities Exam: absent: Calf Tenderness, Pedal Edema - Neurological Exam Neurological Exam: Awake (but sleepy). absent: Alert (lethargic) - Psychiatric Exam Psychiatric exam: Flat Affect - Skin Skin Exam: Dry, Warm Assessment and Plan - Assessment and Plan (Free Text) Plan: Patient's son, Remigio Brunner, and [id number], Federico Brunner stated that the patient's family will be coming this weekend. They requested that no medical information be shared with the family. They asked that we instruct any family members with questions to ask either Remigio or Federico themselves. They also requested to speak to palliative medicine. They can call Federico Brunner's phone number . AIDS, acute encephalopathy 09/06: Spoke to Dr. Denney. Given that her platelets have risen, we ordered an LP to be done under fluoro for Friday. 09/05: Patient shakes head yes and no to questions today and actually spoke! When asked where she was, patient responded with, "the hospital." Patient is still very lethargic, but cognition appears to be improving. Will continue to monitor. Patient is still currently receiving tube feedings through the NG tube. Dr. Cervantes re-consulted for PEG tube evaluation. Spoke to Dr. Cervantes about PEG tube evaluation, he requested that someone else be consulted since he has not seen the patient since . Discussed with Dr. Oshea, he requested specifically that Dr. Estrada be consulted for a second GI opinion. Dr. Estrada's fellow Dr. Shah called and informed. Dr. Shah stated that he will see the patient in the morning tomorrow and will plan for PEG placement either friday or friday next week. 09/03: Patient's platelets still too low for LP even after multiple platelet transfusions. Dr. Denney is requesting platelets be >75. Will discuss with Dr. Denney possibility of performing a LP shortly after a platelet transfusion is completed. Will need to be transfused more platelets. Dr. Denney would like to perform LP under anesthesia due to patient's mental status and inability to follow commands properly. 09/01: Patient was unable to be awoken today. She responded to painful stimuli by pulling away and moaning. She was able to move all four extremities. Discussed with patient's that the patient's prognosis is very poor. He states he understands. Patient will likely need a LP to acquire CSF fluid for further eval. Transfused 1 unit of platelets today. f/u EEG discontinued morphine 08/31: She is somulent. Able to open eyes, random slow movements of arms and legs. Not following any commands. She was started on IV decardon yesterday. She will likley need LP to aquire CSF in the future to again test for JAGUAR virus since imaging via MRI is suggesting progressive multifocal leukoencephalopathy. Previous testing of JAGUAR virus were negative. This being said her platelet count is very low, transfusing 1 unit today. Pending hematology evaluation. 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 Neck MRA 08/29/17: No significant stenosis seen in the visualized bilateral common or internal carotid arteries. Mild right ICA proximal stenosis is identified with plaque identified at the right carotid bulb. Widely patent bilateral common carotids but otherwise, as imaged. Symmetric vertebrobasilar circulation. Head MRA 08/29/17: Suboptimal diagnostic quality due to motion degraded images, allowing for this, no occlusion. Apparent narrowing in bilateral M1 segments could be related to motion artifacts. Patient potentially had a seizure over night. CT (08/22) was negative for any acute findings. Brain MRI was ordered for f/u. patient has not had any more events since then Neurology Consulted, Dr. Denney --> Help appreciated; states that all changes in AMS are most likely due to AIDS Brain MRI w/o contrast(08/22) - Mild diffuse/confluent nonspecific white matter changes as described. Findings are of uncertain etiology though could represent sequela of HIV encephalopathy. PML not excluded. See above discussion for additional differential diagnostic considerations. Questionable secretions/opacification of exuberantly aerated mastoid air cells ramyfing into the left petrous apex however the possibility apical petrositis or small the left petrous CT apex cholesterol granuloma. Repeat Head CT w/o contrast 08/28/17 - Significant motion artifact limits this exam however interval edema is identified at the right greater than left basal ganglia and thalami as well as the bilateral occipital lobes and the right parietal lobe. Is difficult to determine definitively though this is vasogenic or cytotoxic however embolic infarction is questioned. Given the basal ganglia and thalami being affected focally, and anoxic insult is included in the differential diagnosis or even though there is no global loss of vaca-white matter differentiation and edema in this patient. Infectious or metabolic etiologies are not excluded but are not favored. * EEG ordered for morning of 08/23: This is a probably normal EEG. There was increased beta activity noticed intermittently. This could be a normal finding. No focal slowing no seizure like activity was observed. Correlation with clinical findings is needed. 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 Opportunistic Infection ID Dr. Meneses --> help appreciated * Continue Diflucan, bactrim * Started Atripla started 08/27/17 - CT head 08/11 - Negative - MRI 08/12 - unremarkable - LDH - 478 - CD4 - 72 (AIDS confirmed) -->repeat 110 - HIV-1 RNA Qnt (RT-PCR) - 5.80 high - Viral Load: Must r/o infectious causes * CMV - IgG > 10; IgM <30; Dennotes previous infection, no acute infection * Crypto - <1:2 * RPR - nonreactive * Toxoplasma - IgG < 7.2; IgM < 8 AIDS 08/31: On Atripla at this time. This is being crushed and given via NGT * Dr. Menesse recs * Bactrim DS 1 tab PO M/W/F * Atripla [id number](Efavirenz/Emtricitabine/Teno) 1 tab PO daily - script written and placed in chart for pt's to hot die picker and fill, so when patient is discharged to [facility], he will be able to take her medication with her, as [facility] does not usually provide HARRT medications. Dr. Sahu discussed with pt's , Emiliano Hoang, on the phone. He stated he understands and will hot die picker prescription to fill it by 08/28. * Neupogen given 08/25 * HIV screen Positive, CD4 = 72, repeat CD4 = 110 * hep panel negative * Will f/u recs for HARRT therapy upon discharge. * Patient will need to follow up with HIV clinic for continuation of HARRT therapy as out patient. * [facility] - Clinic at [address], [place] * [facility] - Clinic at [address] [place], [place] Phone Anemia; most likely 2/2 to advanced AIDS 09/06: Platelet count gracia to 130 08/31: Patient's platelet count continues to decrease, conset recived for one unit of platelets to be given * Improved to Hgb of 12.7 from 7.1 - patient given 2 units pRBCs on 08/26/17 ( consent given by , Emiliano Hoang, on phone) * continue to monitor Diabetes hypoglycemia protocol RISS only for now Endo consulted, Dr. Nesha Donaldson; appreciate recs * Lantus changed to 12 units HS * Novolog changed to 6 units AC * ISS low HgA1C - 7.1 accuchecks q6h Continue to monitor Hyponatremia; resolved * STOPPED medications due to potential s/e of hyponatremia * Zoloft, Trazodone and IV fluids. * Nephro Consult, Dr. Wong - help appreciated, f/u recs * urine sodium 113 --> 43 * urine osmol 502 --> 176 * serum osmol 276 * will continue to monitor Dysphagia; resolved Chest CT * particulate matter, possibly food, identified within the esophageal lumen intermixed with gas. * Incidental 6mm nodule within superior right breast. CXR * no acute cardiopulmonary disease Neck soft tissue CT * Abnormal circumferential thickening noted of the cervical esophagus. findings could be due to reflux esophagitis but esophageal carcinoma is not excluded. GI consulted, Dr. 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 Prophylactic Care * Heparin 5000u sc q8h - DC'ed due to anemia * SCDs for DVT ppx * Pepcid 20 ivp daily * Fall precautions * 1-1 sitter Case discussed with Dr. Derrick Singleton PGY-1 <Wilner Meza - Last Filed: 09/06/17 13:43> Objective - Vital Signs/Intake and Output Vital Signs (last 24 hours): Temp Pulse Resp BP Pulse Ox 98.8 F 94 H 20 164/89 H 96 09/05/17 23:15 09/06/17 04:00 09/05/17 23:15 09/05/17 23:15 09/05/17 23:15 Intake and Output: 09/06/17 09/06/17 06:59 18:59 Intake Total 2110 Output Total 950 Balance 1160 - Medications Medications: Current Medications Amlodipine Besylate (Norvasc) 5 mg NG DAILY JESSICA Last Admin: 09/06/17 10:19 Dose: 5 mg Aspirin (Ecotrin) 81 mg PO DAILY [facility] Last Admin: 09/06/17 10:21 Dose: 81 mg Dexamethasone (Decadron Inj) 4 mg IVP Q6H [facility] Last Admin: 09/06/17 06:35 Dose: 4 mg Dextrose (Dextrose 50% Inj) 0 ml IV STAT PRN; Protocol PRN Reason: Hyglycemia Protocol Last Admin: 09/06/17 06:20 Dose: 50 ml Dextrose (Glutose 15) 0 gm PO ONCE PRN; Protocol PRN Reason: Hypoglycemia Protocol Efavirenz/Emtricitabine/Tenofovir (Atripla 600 Mg-200 Mg-300 Mg) 1 tab PO DAILY [facility] Last Admin: 09/06/17 10:55 Dose: 1 tab Famotidine (Pepcid) 20 mg PO DAILY [facility] Last Admin: 09/05/17 10:14 Dose: 20 mg Glucagon (Glucagen Diagnostic Kit) 0 mg IM STAT PRN; Protocol PRN Reason: Hypoglycemia Protocol Hydralazine HCl (Apresoline) 10 mg IVP Q6H PRN PRN Reason: Systolic Blood Pressure Last Admin: 09/05/17 08:53 Dose: 10 mg Valproate Sodium 250 mg/ (Sodium Chloride) 102.5 mls @ 100 mls/hr IVPB DAILY [facility] Last Admin: 09/06/17 10:13 Dose: 100 mls/hr Dextrose/Sodium Chloride (Dextrose 5%/0.9% Ns 1000 Ml) 1,000 mls @ 100 mls/hr IV .Q10H [facility] Last Admin: 09/06/17 04:00 Dose: 100 mls/hr Aztreonam 2 gm/ Sodium (Chloride) 100 mls @ 100 mls/hr IVPB Q8H [facility] Last Admin: 09/06/17 11:22 Dose: 100 mls/hr Vancomycin/Sodium Chloride (Vancocin) 1 gm in 200 mls @ 133 mls/hr IVPB Q12H [facility] Stop: 09/10/17 21:01 Last Admin: 09/06/17 08:59 Dose: 133 mls/hr Dextrose (Dextrose 5% In Water 1000 Ml) 1,000 mls @ 0 mls/hr IV .Q0M PRN; Protocol; Per Protocol PRN Reason: Hypoglycemia Protocol Insulin Aspart (Novolog) 0 unit SC ACHS [facility] PRN Reason: Protocol Last Admin: 09/06/17 08:26 Dose: Not Given Insulin Detemir (Levemir) 30 unit SC Q12H [facility] Last Admin: 09/06/17 08:59 Dose: 20 unit Levothyroxine Sodium (Synthroid) 125 mcg PO DAILY@0630 [facility] Last Admin: 09/06/17 06:36 Dose: 125 mcg Ondansetron HCl (Zofran Inj) 4 mg IVP Q6H PRN PRN Reason: Nausea/Vomiting Last Admin: 08/27/17 14:44 Dose: 4 mg Potassium Phos/Sodium Phos (Neutra-Phos) 1 pkt PO TID [facility] Last Admin: 09/06/17 10:14 Dose: 1 pkt Sucralfate (Carafate Oral Susp) 1 gm PO ACBHS [facility] Last Admin: 09/06/17 06:35 Dose: 1 gm Trimethoprim/Sulfamethoxazole (Bactrim Ds Tab) 1 tab PO MWF [facility] Last Admin: 09/05/17 10:10 Dose: 1 tab - Labs Labs: 09/06/17 07:03 09/06/17 07:03 PT 11.2 SECONDS (9.7-12.2) 08/08/17 10:10 INR 1.0 08/08/17 10:10 APTT 25 SECONDS (21-34) 08/08/17 10:10 Attending/Attestation - Attestation I have personally seen and examined this patient.: Yes I have fully participated in the care of the patient.: Yes I have reviewed all pertinent clinical information, including history, physical exam and plan: Yes Notes (Text): 09/06/17 13:29 This is 57years old female with AIDS,encephalopathy,dysphagia,altered mental status,anemia,thrombocytopenia ,hypothyroidism and thrombocytopenia. Leukocytosis-Increasing wbc ,R/O infection,culture done yesterday.started on Azactam and vanco follow culture and ID chest x ray reviewed Encephalopathy - Spoke to Dr. Denney. Given that her platelets have risen, we ordered an LP to be done under fluoro for Friday. 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 Opportunistic Infection ID Dr. Meneses Continue Diflucan, bactrim,HAART meds Patient will need to follow up with HIV clinic for continuation of HARRT therapy as out patient. * [facility] - [facility] at [address], [place] * [facility] - Clinic at [address] [place], [place] Phone Anemia; most likely 2/2 to advanced AIDS Monitor cbc Diabetes Insulin and monitor sugar Hyponatremia started Samsca by nephrology Dysphagia and altered mental status continue NG feeding Platelets count is up.follow with GI for PEG D/W LEONEL Flood Colon yesterday History of hypothyroidism; stable * Synthroid 125mcg QD Urinary Retention Right breast mass - incidental finding on Chest CT; f/u as outpatient * patient will need script for diagnostic mammogram with ultrasound and FNA upon discharge. Prophylactic Care * Heparin 5000u sc q8h - DC'ed due to anemia * SCDs for DVT ppx * Pepcid 20 ivp daily * Advance directives-Full code D/W son Remigio Brunner Daughter in law yesterday phone number .
[2017-09-06 07:55] LABS: CHLORIDE 100 mmol/L (98-107); POTASSIUM 4.1 mmol/L (3.6-5.2); SODIUM 134 mmol/L (132-148)
[2017-09-06 07:57] LABS: ALB/GLOB RATIO 0.8 (1.0-2.1); ALKALINE PHOSPHATASE 105 U/L (38-126); AST/SGOT 26 U/L (14-36); BILIRUBIN,TOTAL 0.4 mg/dL (0.2-1.3); BLOOD UREA NITROGEN 35 mg/dL (7-17); CARBON DIOXIDE 23 mmol/L (22-30); GFR AFRICAN-AMERICAN > 60; TOTAL PROTEIN 6.9 g/dL (6.3-8.3)
[2017-09-06 07:58] LABS: ALT/SGPT 30 U/L (9-52); CALCIUM 9.1 mg/dl (8.6-10.4); GLUCOSE,RANDOM 69 mg/dL (65-105); PHOSPHOROUS 2.6 mg/dL (2.5-4.5)
[2017-09-06] MEDS: (Novolog) Insulin Aspart, Recombinant 100 u/ml 10 ml vial SC SCH ×4 (08:26→22:12)
[2017-09-06] MEDS: Insulin Detemir 100 units/ml Vial (Levemir) SC SCH ×2 (08:59→22:11)
[2017-09-06] MEDS: Vancomycin 1 gm/NS 200 ml 1 GM/200 ML BAG IVPB SCH ×2 (08:59→22:10)
[2017-09-06 09:15] LABS: METAMYELOCYTE 2 % (0-0); MYELOCYTE 2 % (0-0); NEUTROPHIL 78 % (50-75); TOTAL CELLS COUNTED 100
[2017-09-06] MEDS: Valproate 250 MG in Sodium Chloride 0.9% 100 ML IVPB SCH (10:13)
[2017-09-06] MEDS: Potassium & Sodium Phosphate PO SCH ×3 (10:14→18:57)
[2017-09-06] MEDS: Efavirenz/Emtricitabine/Teno 1 TAB PO SCH (10:55)
--- NOTE | 2017-09-06 12:27 | CP.PCM.CON ---
<Danny Shah - Last Filed: 09/06/17 12:49> History of Present Illness - History of Present Illness History of Present Illness: PGY4 Initial GI Consult Lydia Morel is a 57F w/ hx of HTN, DM, hypothyroid, HIV on abbreviated course of HAART due to lack of insurance, LOLIS s/p HD, admitted with dysphagia, seizures , and AM, with thrombocytopenia. Pt is obtunded and could not get information from her. All relevant information was obtained via EMR, nursing, resident, and staff. According to EMR, Patient reported having difficult swallowing solid and liquids. Two days prior to admission, the patient was recently discharged from [facility] where she was treated for the same symptoms. A per notes, the EGD suggested esophagial ulceration and the pt was discharge on PPI and abx?. Patient reported feeling better, but symptoms returned again. She has had a reported 20lb weight loss since February. Pt condition has declined since admission. She has become non-verbal. CT soft neck tissue, the head CT and brain MRI , all showed no acute findings. Initially, patient had visual hallucinations reporting " the dog coming out of the pipe". Patient was seen by the psychiatrist and diagnosed with Major Depression. She was placed on Tube feeds via NG tube. PMH: AIDS, DM, HTN, gastritis, esophagitis, AIDS, LOLIS, was on HD for 4 weeks, porthocath removed 5 days ago Soc. Hx: lives with significant other ( Mr. Emiliano Hoang, who is also at the hospital at present), retired Fam hx: Unknown Endoscopy hx: EGD 3 weeks ago?: esophageal ulcerations ROS: could not be conducted due to AMS Past Patient History - Past Medical History & Family History Past Medical History?: Yes - Past Social History Smoking Status: Never Smoked - CARDIAC Hx Hypertension: Yes - PULMONARY Hx Respiratory Disorders: No - NEUROLOGICAL Hx Neurological Disorder: No - HEENT Hx HEENT Problems: No - RENAL Hx Chronic Kidney Disease: No - ENDOCRINE/METABOLIC Hx Hypothyroidism: Yes - HEMATOLOGICAL/ONCOLOGICAL Hx Blood Disorders: No - INTEGUMENTARY Hx Dermatological Problems: No - MUSCULOSKELETAL/RHEUMATOLOGICAL Hx Musculoskeletal Disorders: No - GASTROINTESTINAL Hx Gastrointestinal Disorders: No - GENITOURINARY/GYNECOLOGICAL Hx Genitourinary Disorders: No - PSYCHIATRIC Hx Substance Use: No - SURGICAL HISTORY Hx Section: Yes (x2) - ANESTHESIA Hx Anesthesia: Yes Hx Anesthesia Reactions: No Meds Allergies/Adverse Reactions: Allergies Allergy/AdvReac Type Severity Reaction Status Date / Time Penicillins Allergy Severe ANGIOEDEMA Verified 08/08/17 09:37 - Medications Medications: Current Medications Amlodipine Besylate (Norvasc) 5 mg NG DAILY [facility] Last Admin: 09/06/17 10:19 Dose: 5 mg Aspirin (Ecotrin) 81 mg PO DAILY [facility] Last Admin: 09/06/17 10:21 Dose: 81 mg Dexamethasone (Decadron Inj) 4 mg IVP Q6H [facility] Last Admin: 09/06/17 06:35 Dose: 4 mg Dextrose (Dextrose 50% Inj) 0 ml IV STAT PRN; Protocol PRN Reason: Hyglycemia Protocol Last Admin: 09/06/17 06:20 Dose: 50 ml Dextrose (Glutose 15) 0 gm PO ONCE PRN; Protocol PRN Reason: Hypoglycemia Protocol Efavirenz/Emtricitabine/Tenofovir (Atripla 600 Mg-200 Mg-300 Mg) 1 tab PO DAILY [facility] Last Admin: 09/06/17 10:55 Dose: 1 tab Famotidine (Pepcid) 20 mg PO DAILY [facility] Last Admin: 09/05/17 10:14 Dose: 20 mg Glucagon (Glucagen Diagnostic Kit) 0 mg IM STAT PRN; Protocol PRN Reason: Hypoglycemia Protocol Hydralazine HCl (Apresoline) 10 mg IVP Q6H PRN PRN Reason: Systolic Blood Pressure Last Admin: 09/05/17 08:53 Dose: 10 mg Valproate Sodium 250 mg/ (Sodium Chloride) 102.5 mls @ 100 mls/hr IVPB DAILY [facility] Last Admin: 09/06/17 10:13 Dose: 100 mls/hr Dextrose/Sodium Chloride (Dextrose 5%/0.9% Ns 1000 Ml) 1,000 mls @ 100 mls/hr IV .Q10H [facility] Last Admin: 09/06/17 04:00 Dose: 100 mls/hr Aztreonam 2 gm/ Sodium (Chloride) 100 mls @ 100 mls/hr IVPB Q8H [facility] Last Admin: 09/06/17 11:22 Dose: 100 mls/hr Vancomycin/Sodium Chloride (Vancocin) 1 gm in 200 mls @ 133 mls/hr IVPB Q12H [facility] Stop: 09/10/17 21:01 Last Admin: 09/06/17 08:59 Dose: 133 mls/hr Dextrose (Dextrose 5% In Water 1000 Ml) 1,000 mls @ 0 mls/hr IV .Q0M PRN; Protocol; Per Protocol PRN Reason: Hypoglycemia Protocol Insulin Aspart (Novolog) 0 unit SC ACHS [facility] PRN Reason: Protocol Last Admin: 09/06/17 08:26 Dose: Not Given Insulin Detemir (Levemir) 30 unit SC Q12H [facility] Last Admin: 09/06/17 08:59 Dose: 20 unit Levothyroxine Sodium (Synthroid) 125 mcg PO DAILY@0630 [facility] Last Admin: 09/06/17 06:36 Dose: 125 mcg Ondansetron HCl (Zofran Inj) 4 mg IVP Q6H PRN PRN Reason: Nausea/Vomiting Last Admin: 08/27/17 14:44 Dose: 4 mg Potassium Phos/Sodium Phos (Neutra-Phos) 1 pkt PO TID [facility] Last Admin: 09/06/17 10:14 Dose: 1 pkt Sucralfate (Carafate Oral Susp) 1 gm PO ACBHS [facility] Last Admin: 09/06/17 06:35 Dose: 1 gm Trimethoprim/Sulfamethoxazole (Bactrim Ds Tab) 1 tab PO MWF [facility] Last Admin: 09/05/17 10:10 Dose: 1 tab Physical Exam - Constitutional Appears: Non-toxic, No Acute Distress, Chronically Ill - Head Exam Head Exam: ATRAUMATIC, NORMOCEPHALIC - Eye Exam Eye Exam: Normal appearance - ENT Exam ENT Exam: Mucous Membranes Moist - Neck Exam Neck exam: Positive for: Normal Inspection - Respiratory Exam Respiratory Exam: Clear to Auscultation Bilateral, NORMAL BREATHING PATTERN. absent: Prolonged Expiratory Phase, Rales, Rhonchi, Wheezes, Respiratory Distress - Cardiovascular Exam Cardiovascular Exam: REGULAR RHYTHM, +S1, +S2 - GI/Abdominal Exam GI & Abdominal Exam: Normal Bowel Sounds, Soft. absent: Distended, Guarding, Organomegaly, Rebound - Extremities Exam Extremities exam: Negative for: joint swelling, pedal edema - Neurological Exam Additional comments: could not assess due to AMS - Psychiatric Exam Additional comments: could not assess to AMS Results - Vital Signs Recent Vital Signs: Last Vital Signs Temp 98.8 F 09/05/17 23:15 Pulse 94 H 09/06/17 04:00 Resp 20 09/05/17 23:15 BP 164/89 H 09/05/17 23:15 Pulse Ox 96 09/05/17 23:15 - Labs Result Diagrams: 09/06/17 07:03 09/06/17 07:03 Labs: Laboratory Results - last 24 hr 09/05/17 09/05/17 09/06/17 16:10 21:10 06:07 WBC RBC Hgb Hct MCV MCH MCHC RDW Plt Count MPV Neut % (Auto) Lymph % (Auto) [place] % (Auto) Eos % (Auto) Baso % (Auto) Neut # Lymph # [place] # Eos # Baso # Neutrophils % (Manual) Band Neutrophils % Lymphocytes % (Manual) Monocytes % (Manual) Metamyelocytes % Myelocytes % Platelet Estimate Anisocytosis (manual) Ovalocytes Sodium Potassium Chloride Carbon Dioxide Anion Gap BUN Creatinine Est GFR ( Amer) Est GFR (Non-Af Amer) POC Glucose (mg/dL) 243 H 223 H 64 L Random Glucose Calcium Phosphorus Magnesium Total Bilirubin AST ALT Alkaline Phosphatase Total Protein Albumin Globulin Albumin/Globulin Ratio 09/06/17 09/06/17 09/06/17 06:57 07:03 07:03 WBC 23.4 H RBC 3.59 L Hgb 10.5 L Hct 30.9 L MCV 85.9 MCH 29.3 MCHC 34.1 RDW 14.8 H Plt Count 130 MPV 7.9 Neut % (Auto) 85.3 H Lymph % (Auto) 4.7 L [place] % (Auto) 9.7 Eos % (Auto) 0.1 Baso % (Auto) 0.2 Neut # 19.9 H Lymph # 1.1 [place] # 2.3 H Eos # 0.0 Baso # 0.0 Neutrophils % (Manual) 78 H Band Neutrophils % 7 H Lymphocytes % (Manual) 7 L Monocytes % (Manual) 4 Metamyelocytes % 2 H Myelocytes % 2 H Platelet Estimate Normal Anisocytosis (manual) Slight Ovalocytes Slight Sodium 134 Potassium 4.1 Chloride 100 Carbon Dioxide 23 Anion Gap 15 BUN 35 H Creatinine 0.9 Est GFR ( Amer) > 60 Est GFR (Non-Af Amer) > 60 POC Glucose (mg/dL) 242 H Random Glucose 69 Calcium 9.1 Phosphorus 2.6 Magnesium 2.0 Total Bilirubin 0.4 AST 26 ALT 30 Alkaline Phosphatase 105 Total Protein 6.9 Albumin 3.1 L Globulin 3.8 Albumin/Globulin Ratio 0.8 L 09/06/17 12:03 WBC RBC Hgb Hct MCV MCH MCHC RDW Plt Count MPV Neut % (Auto) Lymph % (Auto) [place] % (Auto) Eos % (Auto) Baso % (Auto) Neut # Lymph # [place] # Eos # Baso # Neutrophils % (Manual) Band Neutrophils % Lymphocytes % (Manual) Monocytes % (Manual) Metamyelocytes % Myelocytes % Platelet Estimate Anisocytosis (manual) Ovalocytes Sodium Potassium Chloride Carbon Dioxide Anion Gap BUN Creatinine Est GFR ( Amer) Est GFR (Non-Af Amer) POC Glucose (mg/dL) 161 H Random Glucose Calcium Phosphorus Magnesium Total Bilirubin AST ALT Alkaline Phosphatase Total Protein Albumin Globulin Albumin/Globulin Ratio Assessment & Plan - Assessment and Plan (Free Text) Assessment: Marya Morel is a 57F w/ hx of HTN, DM, hypothyroid, HIV on abbreviated course of HAART due to lack of insurance, LOLIS s/p HD, admitted with dysphagia, seizures, and AM, with thrombocytopenia. GI was consulted for PEG eval. Pt is currently NPO and is receiving feeds via NG tube. Cannot assess Dysphagia due to AMS and pt s clearly an aspiration risk due to mental status. PEG Eval for dysphagia and nutritional support Leukocytosis, 2/2 steroids?; r/o active infection Immunocomprimised due to HIV/AIDS AMS etiology unknown Plan: -would recommend continued observation of clinical course prior to PEG insertion -etiology of encephalopathy is not clear, LP pending? -Leukocytosis is likely 2/2 steroids, but would like to monitor for improvement -would appreciate comment from ID in regards to possible infection which may complicate PEG insertion -would keep PLTs optimized -will need to eventually speak to family about goals of care, a clear health proxy needs to designated and confirmed -continue tube feeds via NG tube -continue PPI D/W Dr. Corey <Carmelo Corey - Last Filed: 09/06/17 15:28> Meds - Medications Medications: Current Medications Amlodipine Besylate (Norvasc) 5 mg NG DAILY [facility] Last Admin: 09/06/17 10:19 Dose: 5 mg Aspirin (Ecotrin) 81 mg PO DAILY [facility] Last Admin: 09/06/17 10:21 Dose: 81 mg Dexamethasone (Decadron Inj) 4 mg IVP Q6H [facility] Last Admin: 09/06/17 12:35 Dose: 4 mg Dextrose (Dextrose 50% Inj) 0 ml IV STAT PRN; Protocol PRN Reason: Hyglycemia Protocol Last Admin: 09/06/17 06:20 Dose: 50 ml Dextrose (Glutose 15) 0 gm PO ONCE PRN; Protocol PRN Reason: Hypoglycemia Protocol Efavirenz/Emtricitabine/Tenofovir (Atripla 600 Mg-200 Mg-300 Mg) 1 tab PO DAILY [facility] Last Admin: 09/06/17 10:55 Dose: 1 tab Famotidine (Pepcid) 20 mg PO DAILY [facility] Last Admin: 09/06/17 10:53 Dose: 20 mg Glucagon (Glucagen Diagnostic Kit) 0 mg IM STAT PRN; Protocol PRN Reason: Hypoglycemia Protocol Hydralazine HCl (Apresoline) 10 mg IVP Q6H PRN PRN Reason: Systolic Blood Pressure Last Admin: 09/05/17 08:53 Dose: 10 mg Valproate Sodium 250 mg/ (Sodium Chloride) 102.5 mls @ 100 mls/hr IVPB DAILY [facility] Last Admin: 09/06/17 10:13 Dose: 100 mls/hr Dextrose/Sodium Chloride (Dextrose 5%/0.9% Ns 1000 Ml) 1,000 mls @ 100 mls/hr IV .Q10H [facility] Last Admin: 09/06/17 08:15 Dose: Not Given Aztreonam 2 gm/ Sodium (Chloride) 100 mls @ 100 mls/hr IVPB Q8H [facility] Last Admin: 09/06/17 11:22 Dose: 100 mls/hr Vancomycin/Sodium Chloride (Vancocin) 1 gm in 200 mls @ 133 mls/hr IVPB Q12H [facility] Stop: 09/10/17 21:01 Last Admin: 09/06/17 08:59 Dose: 133 mls/hr Dextrose (Dextrose 5% In Water 1000 Ml) 1,000 mls @ 0 mls/hr IV .Q0M PRN; Protocol; Per Protocol PRN Reason: Hypoglycemia Protocol Insulin Aspart (Novolog) 0 unit SC ACHS [facility] PRN Reason: Protocol Last Admin: 09/06/17 12:01 Dose: Not Given Insulin Detemir (Levemir) 30 unit SC Q12H [facility] Last Admin: 09/06/17 08:59 Dose: 20 unit Levothyroxine Sodium (Synthroid) 125 mcg PO DAILY@0630 [facility] Last Admin: 09/06/17 06:36 Dose: 125 mcg Ondansetron HCl (Zofran Inj) 4 mg IVP Q6H PRN PRN Reason: Nausea/Vomiting Last Admin: 08/27/17 14:44 Dose: 4 mg Potassium Phos/Sodium Phos (Neutra-Phos) 1 pkt PO TID [facility] Last Admin: 09/06/17 14:51 Dose: 1 pkt Sucralfate (Carafate Oral Susp) 1 gm PO ACBHS [facility] Last Admin: 09/06/17 06:35 Dose: 1 gm Trimethoprim/Sulfamethoxazole (Bactrim Ds Tab) 1 tab PO MWF [facility] Last Admin: 09/05/17 10:10 Dose: 1 tab Results - Vital Signs Recent Vital Signs: Last Vital Signs Temp 98.8 F 09/05/17 23:15 Pulse 94 H 09/06/17 04:00 Resp 20 09/05/17 23:15 BP 164/89 H 09/05/17 23:15 Pulse Ox 96 09/05/17 23:15 - Labs Result Diagrams: 09/06/17 07:03 09/06/17 07:03 Labs: Laboratory Results - last 24 hr 09/05/17 09/05/17 09/06/17 16:10 21:10 06:07 WBC RBC Hgb Hct MCV MCH MCHC RDW Plt Count MPV Neut % (Auto) Lymph % (Auto) [place] % (Auto) Eos % (Auto) Baso % (Auto) Neut # Lymph # [place] # Eos # Baso # Neutrophils % (Manual) Band Neutrophils % Lymphocytes % (Manual) Monocytes % (Manual) Metamyelocytes % Myelocytes % Platelet Estimate Anisocytosis (manual) Ovalocytes Sodium Potassium Chloride Carbon Dioxide Anion Gap BUN Creatinine Est GFR ( Amer) Est GFR (Non-Af Amer) POC Glucose (mg/dL) 243 H 223 H 64 L Random Glucose Calcium Phosphorus Magnesium Total Bilirubin AST ALT Alkaline Phosphatase Total Protein Albumin Globulin Albumin/Globulin Ratio 09/06/17 09/06/17 09/06/17 06:57 07:03 07:03 WBC 23.4 H RBC 3.59 L Hgb 10.5 L Hct 30.9 L MCV 85.9 MCH 29.3 MCHC 34.1 RDW 14.8 H Plt Count 130 MPV 7.9 Neut % (Auto) 85.3 H Lymph % (Auto) 4.7 L [place] % (Auto) 9.7 Eos % (Auto) 0.1 Baso % (Auto) 0.2 Neut # 19.9 H Lymph # 1.1 [place] # 2.3 H Eos # 0.0 Baso # 0.0 Neutrophils % (Manual) 78 H Band Neutrophils % 7 H Lymphocytes % (Manual) 7 L Monocytes % (Manual) 4 Metamyelocytes % 2 H Myelocytes % 2 H Platelet Estimate Normal Anisocytosis (manual) Slight Ovalocytes Slight Sodium 134 Potassium 4.1 Chloride 100 Carbon Dioxide 23 Anion Gap 15 BUN 35 H Creatinine 0.9 Est GFR ( Amer) > 60 Est GFR (Non-Af Amer) > 60 POC Glucose (mg/dL) 242 H Random Glucose 69 Calcium 9.1 Phosphorus 2.6 Magnesium 2.0 Total Bilirubin 0.4 AST 26 ALT 30 Alkaline Phosphatase 105 Total Protein 6.9 Albumin 3.1 L Globulin 3.8 Albumin/Globulin Ratio 0.8 L 09/06/17 12:03 WBC RBC Hgb Hct MCV MCH MCHC RDW Plt Count MPV Neut % (Auto) Lymph % (Auto) [place] % (Auto) Eos % (Auto) Baso % (Auto) Neut # Lymph # [place] # Eos # Baso # Neutrophils % (Manual) Band Neutrophils % Lymphocytes % (Manual) Monocytes % (Manual) Metamyelocytes % Myelocytes % Platelet Estimate Anisocytosis (manual) Ovalocytes Sodium Potassium Chloride Carbon Dioxide Anion Gap BUN Creatinine Est GFR ( Amer) Est GFR (Non-Af Amer) POC Glucose (mg/dL) 161 H Random Glucose Calcium Phosphorus Magnesium Total Bilirubin AST ALT Alkaline Phosphatase Total Protein Albumin Globulin Albumin/Globulin Ratio Attending/Attestation - Attestation I have personally seen and examined this patient.: Yes I have fully participated in the care of the patient.: Yes I have reviewed all pertinent clinical information: Yes Notes (Text): 09/06/17 15:25 57 year old female with h/o HTN, DM, HIV/AIDS, Renal failure on HD with altered mental status. 1. Altered mental status 2. Malnutrition 3. AIDS Plan: -uncertain caused for deterioration in mental status -she hasn't improved significantly so far -may still require LP per neurology,but doesn't seem likely to have a short term recovery in neurological status, if at all -agree that patient will need PEG for long term care administrator nutrition and it seems that the family wants this -continue dobhoff tube feedings at present -will decide on timing of PEG depending on clinical course
--- NOTE | 2017-09-06 12:33 | PN ---
DATE: ENDOCRINOLOGY FOLLOWUP NOTE LOCATION: In room 654. This is a 57-year-old female with recent uncontrolled type 1 insulin-dependent diabetes, currently receiving IV steroid therapy with Decadron given as 4 mg IV every 6 hours as ordered. Her glycemic levels are fluctuating and as noted and today's glucose levels have ranged from 64 to 223 and 242 mg/dL. Her latest chemistry showed a BUN of 35, sodium 134, potassium 4.1, chloride 100, CO2 of 23, glucose 69 and creatinine 0.9. So, at this time, we will continue the Levemir given as basal insulin every 12 hours at the dose of 30 units subcutaneous q. 12 hours as ordered. She has ongoing enteral tube feedings to optimize her protein and caloric requirements. We will follow and advise accordingly. Nesha Donaldson MD
[2017-09-06] MEDS ORDERED: Dextrose 50% SYRINGE Inj (50 ml) ONE (16:28)
--- NOTE | 2017-09-06 19:00 | RAD ---
PROCEDURE: CHEST RADIOGRAPH, 1 VIEW HISTORY: Leukocytosis COMPARISON: Comparison is made to 08/29/2017 FINDINGS: LUNGS: No evidence unknown of new infiltrate or consolidation in the lungs. PLEURA: No pneumothorax or pleural fluid seen. CARDIOVASCULAR: Normal. OSSEOUS STRUCTURES: No significant abnormalities. VISUALIZED UPPER ABDOMEN: NG tube is again seen extending to the stomach OTHER FINDINGS: None. IMPRESSION: No active disease.
--- NOTE | 2017-09-06 22:45 | CP.PCM.PN ---
Subjective - Date & Time of Evaluation Date of Evaluation: 09/06/17 Time of Evaluation: 17:15 - Subjective Subjective: Opens eyes but does not respond Objective - Vital Signs/Intake and Output Vital Signs (last 24 hours): Temp Pulse Resp BP Pulse Ox 97.5 F L 97 H 20 150/82 100 09/06/17 15:11 09/06/17 16:00 09/06/17 15:11 09/06/17 15:11 09/06/17 15:11 Intake and Output: 09/06/17 09/07/17 18:59 06:59 Intake Total 1230 Output Total 900 Balance 330 - Medications Medications: Current Medications Amlodipine Besylate (Norvasc) 5 mg NG DAILY [facility] Last Admin: 09/06/17 10:19 Dose: 5 mg Aspirin (Ecotrin) 81 mg PO DAILY [facility] Last Admin: 09/06/17 10:21 Dose: 81 mg Dexamethasone (Decadron Inj) 4 mg IVP Q6H [facility] Last Admin: 09/06/17 18:58 Dose: 4 mg Dextrose (Dextrose 50% Inj) 0 ml IV STAT PRN; Protocol PRN Reason: Hyglycemia Protocol Last Admin: 09/06/17 16:30 Dose: 50 ml Dextrose (Glutose 15) 0 gm PO ONCE PRN; Protocol PRN Reason: Hypoglycemia Protocol Efavirenz/Emtricitabine/Tenofovir (Atripla 600 Mg-200 Mg-300 Mg) 1 tab PO DAILY [facility] Last Admin: 09/06/17 10:55 Dose: 1 tab Famotidine (Pepcid) 20 mg PO DAILY [facility] Last Admin: 09/06/17 10:53 Dose: 20 mg Glucagon (Glucagen Diagnostic Kit) 0 mg IM STAT PRN; Protocol PRN Reason: Hypoglycemia Protocol Hydralazine HCl (Apresoline) 10 mg IVP Q6H PRN PRN Reason: Systolic Blood Pressure Last Admin: 09/05/17 08:53 Dose: 10 mg Valproate Sodium 250 mg/ (Sodium Chloride) 102.5 mls @ 100 mls/hr IVPB DAILY [facility] Last Admin: 09/06/17 10:13 Dose: 100 mls/hr Dextrose/Sodium Chloride (Dextrose 5%/0.9% Ns 1000 Ml) 1,000 mls @ 100 mls/hr IV .Q10H [facility] Last Admin: 09/06/17 19:04 Dose: 100 mls/hr Aztreonam 2 gm/ Sodium (Chloride) 100 mls @ 100 mls/hr IVPB Q8H [facility] Last Admin: 09/06/17 19:02 Dose: 100 mls/hr Vancomycin/Sodium Chloride (Vancocin) 1 gm in 200 mls @ 133 mls/hr IVPB Q12H [facility] Stop: 09/10/17 21:01 Last Admin: 09/06/17 22:10 Dose: 133 mls/hr Dextrose (Dextrose 5% In Water 1000 Ml) 1,000 mls @ 0 mls/hr IV .Q0M PRN; Protocol; Per Protocol PRN Reason: Hypoglycemia Protocol Insulin Aspart (Novolog) 0 unit SC ACHS [facility] PRN Reason: Protocol Last Admin: 09/06/17 22:12 Dose: Not Given Insulin Detemir (Levemir) 12 unit SC Q12 [facility] Last Admin: 09/06/17 22:11 Dose: 12 unit Levothyroxine Sodium (Synthroid) 125 mcg PO DAILY@0630 [facility] Last Admin: 09/06/17 06:36 Dose: 125 mcg Ondansetron HCl (Zofran Inj) 4 mg IVP Q6H PRN PRN Reason: Nausea/Vomiting Last Admin: 08/27/17 14:44 Dose: 4 mg Potassium Phos/Sodium Phos (Neutra-Phos) 1 pkt PO TID [facility] Last Admin: 09/06/17 18:57 Dose: 1 pkt Sucralfate (Carafate Oral Susp) 1 gm PO ACBHS [facility] Last Admin: 09/06/17 22:10 Dose: 1 gm Trimethoprim/Sulfamethoxazole (Bactrim Ds Tab) 1 tab PO MWF [facility] Last Admin: 09/05/17 10:10 Dose: 1 tab - Labs Labs: 09/06/17 07:03 09/06/17 07:03 PT 11.2 SECONDS (9.7-12.2) 08/08/17 10:10 INR 1.0 08/08/17 10:10 APTT 25 SECONDS (21-34) 08/08/17 10:10 - Head Exam Head Exam: ATRAUMATIC - Eye Exam Eye Exam: Normal appearance - ENT Exam ENT Exam: Mucous Membranes Dry - Respiratory Exam Respiratory Exam: NORMAL BREATHING PATTERN - Cardiovascular Exam Cardiovascular Exam: +S1, +S2 - GI/Abdominal Exam GI & Abdominal Exam: Normal Bowel Sounds - Extremities Exam Extremities Exam: Normal Inspection Assessment and Plan (1) Leukocytosis Assessment & Plan: on antibiotics and steroids Status: Acute (2) Thrombocytopenia Assessment & Plan: improving ? ITP - currently on steroids with improved plt count Status: Acute (3) Anemia Assessment & Plan: anemia of HIV and chronic disease Status: Acute
[2017-09-07] MEDS: Aztreonam 2 GM in Sodium Chloride 0.9% 100 ML IVPB SCH ×3 (04:04→20:01)
[2017-09-07] MEDS: Dextrose 5%/0.9% NS 1,000 ML IV SCH (04:15)
[2017-09-07] MEDS: Dexamethasone 4 mg/1 ml IVP SCH ×3 (05:19→17:49)
[2017-09-07] MEDS: Sucralfate 1 gm/10 ml Oral Susp UD PO SCH ×2 (06:35→22:05)
[2017-09-07] MEDS: Levothyroxine 125 MCG TAB PO SCH (06:35)
--- NOTE | 2017-09-07 07:22 | CP.PCM.PN ---
<Alex Singleton - Last Filed: 09/07/17 14:29> Subjective - Date & Time of Evaluation Date of Evaluation: 09/07/17 Time of Evaluation: 07:00 - Subjective Subjective: PGY-[address] Meza Patient seen and examined. Patient was awake and responded good morning when I greeted her. Patient was unable to answer when asked ROS. Patient asked if she needed anything and responded bathroom. Objective - Vital Signs/Intake and Output Vital Signs (last 24 hours): Temp Pulse Resp BP Pulse Ox 97.6 F 81 20 153/88 H 99 09/06/17 23:16 09/07/17 00:00 09/06/17 23:16 09/06/17 23:16 09/06/17 23:16 Intake and Output: 09/07/17 09/07/17 06:59 18:59 Intake Total 1380 Output Total 2250 Balance -870 - Medications Medications: Current Medications Amlodipine Besylate (Norvasc) 5 mg NG DAILY [facility] Last Admin: 09/06/17 10:19 Dose: 5 mg Aspirin (Ecotrin) 81 mg PO DAILY [facility] Last Admin: 09/06/17 10:21 Dose: 81 mg Dexamethasone (Decadron Inj) 4 mg IVP Q6H [facility] Last Admin: 09/07/17 05:19 Dose: 4 mg Dextrose (Dextrose 50% Inj) 0 ml IV STAT PRN; Protocol PRN Reason: Hyglycemia Protocol Last Admin: 09/06/17 16:30 Dose: 50 ml Dextrose (Glutose 15) 0 gm PO ONCE PRN; Protocol PRN Reason: Hypoglycemia Protocol Efavirenz/Emtricitabine/Tenofovir (Atripla 600 Mg-200 Mg-300 Mg) 1 tab PO DAILY [facility] Last Admin: 09/06/17 10:55 Dose: 1 tab Famotidine (Pepcid) 20 mg PO DAILY [facility] Last Admin: 09/06/17 10:53 Dose: 20 mg Glucagon (Glucagen Diagnostic Kit) 0 mg IM STAT PRN; Protocol PRN Reason: Hypoglycemia Protocol Hydralazine HCl (Apresoline) 10 mg IVP Q6H PRN PRN Reason: Systolic Blood Pressure Last Admin: 09/05/17 08:53 Dose: 10 mg Valproate Sodium 250 mg/ (Sodium Chloride) 102.5 mls @ 100 mls/hr IVPB DAILY [facility] Last Admin: 09/06/17 10:13 Dose: 100 mls/hr Dextrose/Sodium Chloride (Dextrose 5%/0.9% Ns 1000 Ml) 1,000 mls @ 100 mls/hr IV .Q10H [facility] Last Admin: 09/07/17 04:15 Dose: Not Given Aztreonam 2 gm/ Sodium (Chloride) 100 mls @ 100 mls/hr IVPB Q8H [facility] Last Admin: 09/07/17 04:04 Dose: 100 mls/hr Vancomycin/Sodium Chloride (Vancocin) 1 gm in 200 mls @ 133 mls/hr IVPB Q12H [facility] Stop: 09/10/17 21:01 Last Admin: 09/06/17 22:10 Dose: 133 mls/hr Dextrose (Dextrose 5% In Water 1000 Ml) 1,000 mls @ 0 mls/hr IV .Q0M PRN; Protocol; Per Protocol PRN Reason: Hypoglycemia Protocol Insulin Aspart (Novolog) 0 unit SC ACHS [facility] PRN Reason: Protocol Last Admin: 09/06/17 22:12 Dose: Not Given Insulin Detemir (Levemir) 12 unit SC Q12 [facility] Last Admin: 09/06/17 22:11 Dose: 12 unit Levothyroxine Sodium (Synthroid) 125 mcg PO DAILY@0630 [facility] Last Admin: 09/07/17 06:35 Dose: 125 mcg Ondansetron HCl (Zofran Inj) 4 mg IVP Q6H PRN PRN Reason: Nausea/Vomiting Last Admin: 08/27/17 14:44 Dose: 4 mg Potassium Phos/Sodium Phos (Neutra-Phos) 1 pkt PO TID [facility] Last Admin: 09/06/17 18:57 Dose: 1 pkt Sucralfate (Carafate Oral Susp) 1 gm PO ACBHS [facility] Last Admin: 09/07/17 06:35 Dose: 1 gm Trimethoprim/Sulfamethoxazole (Bactrim Ds Tab) 1 tab PO MWF [facility] Last Admin: 09/05/17 10:10 Dose: 1 tab - Labs Labs: 09/06/17 07:03 09/06/17 07:03 PT 11.2 SECONDS (9.7-12.2) 08/08/17 10:10 INR 1.0 08/08/17 10:10 APTT 25 SECONDS (21-34) 08/08/17 10:10 - Constitutional Appears: No Acute Distress, Chronically Ill - Head Exam Head Exam: ATRAUMATIC, NORMOCEPHALIC - Eye Exam Eye Exam: EOMI, PERRL - ENT Exam ENT Exam: Mucous Membranes Moist Additional comments: NGT in place - Respiratory Exam Respiratory Exam: Clear to Ausculation Bilateral, NORMAL BREATHING PATTERN. absent: Rales, Rhonchi, Wheezes - Cardiovascular Exam Cardiovascular Exam: REGULAR RHYTHM, +S1, +S2 - GI/Abdominal Exam GI & Abdominal Exam: Soft, Normal Bowel Sounds. absent: Distended, Tenderness - Extremities Exam Extremities Exam: absent: Calf Tenderness, Pedal Edema - Neurological Exam Neurological Exam: Awake - Psychiatric Exam Psychiatric exam: Flat Affect - Skin Skin Exam: Dry, Warm Assessment and Plan - Assessment and Plan (Free Text) Plan: Patient's son, Remigio Brunner, and [id number], Federico Brunner stated that the patient's family will be coming this weekend. They requested that no medical information be shared with the family. They asked that we instruct any family members with questions to ask either Remigio or Federico themselves. They also requested to speak to palliative medicine. They can call Federico Brunner's phone number . AIDS, acute encephalopathy 09/06: Spoke to Dr. Denney. Given that her platelets have risen, we ordered an LP to be done under fluoro for Friday. 09/05: Patient shakes head yes and no to questions today and actually spoke! When asked where she was, patient responded with, "the hospital." Patient is still very lethargic, but cognition appears to be improving. Will continue to monitor. Patient is still currently receiving tube feedings through the NG tube. Dr. Cervantes re-consulted for PEG tube evaluation. Spoke to Dr. Cervantes about PEG tube evaluation, he requested that someone else be consulted since he has not seen the patient since . Discussed with Dr. Oshea, he requested specifically that Dr. Estrada be consulted for a second GI opinion. Dr. Estrada's fellow Dr. Shah called and informed. Dr. Shah stated that he will see the patient in the morning tomorrow and will plan for PEG placement either friday or friday next week. 09/03: Patient's platelets still too low for LP even after multiple platelet transfusions. Dr. Denney is requesting platelets be >75. Will discuss with Dr. Denney possibility of performing a LP shortly after a platelet transfusion is completed. Will need to be transfused more platelets. Dr. Denney would like to perform LP under anesthesia due to patient's mental status and inability to follow commands properly. 09/01: Patient was unable to be awoken today. She responded to painful stimuli by pulling away and moaning. She was able to move all four extremities. Discussed with patient's that the patient's prognosis is very poor. He states he understands. Patient will likely need a LP to acquire CSF fluid for further eval. Transfused 1 unit of platelets today. f/u EEG discontinued morphine 08/31: She is somulent. Able to open eyes, random slow movements of arms and legs. Not following any commands. She was started on IV decardon yesterday. She will likley need LP to aquire CSF in the future to again test for JAGUAR virus since imaging via MRI is suggesting progressive multifocal leukoencephalopathy. Previous testing of JAGUAR virus were negative. This being said her platelet count is very low, transfusing 1 unit today. Pending hematology evaluation. 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 Neck MRA 08/29/17: No significant stenosis seen in the visualized bilateral common or internal carotid arteries. Mild right ICA proximal stenosis is identified with plaque identified at the right carotid bulb. Widely patent bilateral common carotids but otherwise, as imaged. Symmetric vertebrobasilar circulation. Head MRA 08/29/17: Suboptimal diagnostic quality due to motion degraded images, allowing for this, no occlusion. Apparent narrowing in bilateral M1 segments could be related to motion artifacts. Patient potentially had a seizure over night. CT (08/22) was negative for any acute findings. Brain MRI was ordered for f/u. patient has not had any more events since then Neurology Consulted, Dr. Denney --> Help appreciated; states that all changes in AMS are most likely due to AIDS Brain MRI w/o contrast(08/22) - Mild diffuse/confluent nonspecific white matter changes as described. Findings are of uncertain etiology though could represent sequela of HIV encephalopathy. PML not excluded. See above discussion for additional differential diagnostic considerations. Questionable secretions/opacification of exuberantly aerated mastoid air cells ramyfing into the left petrous apex however the possibility apical petrositis or small the left petrous CT apex cholesterol granuloma. Repeat Head CT w/o contrast 08/28/17 - Significant motion artifact limits this exam however interval edema is identified at the right greater than left basal ganglia and thalami as well as the bilateral occipital lobes and the right parietal lobe. Is difficult to determine definitively though this is vasogenic or cytotoxic however embolic infarction is questioned. Given the basal ganglia and thalami being affected focally, and anoxic insult is included in the differential diagnosis or even though there is no global loss of vaca-white matter differentiation and edema in this patient. Infectious or metabolic etiologies are not excluded but are not favored. * EEG ordered for morning of 08/23: This is a probably normal EEG. There was increased beta activity noticed intermittently. This could be a normal finding. No focal slowing no seizure like activity was observed. Correlation with clinical findings is needed. 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 Opportunistic Infection ID Dr. Meneses --> help appreciated * Continue Diflucan, bactrim * Started Atripla started 08/27/17 - CT head 08/11 - Negative - MRI 08/12 - unremarkable - LDH - 478 - CD4 - 72 (AIDS confirmed) -->repeat 110 - HIV-1 RNA Qnt (RT-PCR) - 5.80 high - Viral Load: Must r/o infectious causes * CMV - IgG > 10; IgM <30; Dennotes previous infection, no acute infection * Crypto - <1:2 * RPR - nonreactive * Toxoplasma - IgG < 7.2; IgM < 8 AIDS 08/31: On Atripla at this time. This is being crushed and given via NGT * Dr. Meneses recs * Bactrim DS 1 tab PO M/W/F * Atripla [id number](Efavirenz/Emtricitabine/Teno) 1 tab PO daily - script written and placed in chart for pt's to apple picking supervisor and fill, so when patient is discharged to [facility], he will be able to take her medication with her, as [facility] does not usually provide HARRT medications. Dr. Sahu discussed with pt's , Emiliano Hoang, on the phone. He stated he understands and will apple picking supervisor prescription to fill it by 08/28. * Neupogen given 08/25 * HIV screen Positive, CD4 = 72, repeat CD4 = 110 * hep panel negative * Will f/u recs for HARRT therapy upon discharge. * Patient will need to follow up with HIV clinic for continuation of HARRT therapy as out patient. * [facility] - Clinic at [address], [place] * [facility] - Clinic at [address], [place] Phone Anemia; most likely 2/2 to advanced AIDS 09/06: Platelet count gracia to 130 08/31: Patient's platelet count continues to decrease, conset recived for one unit of platelets to be given * Improved to Hgb of 12.7 from 7.1 - patient given 2 units pRBCs on 08/26/17 ( consent given by , Emiliano Hoang, on phone) * continue to monitor Diabetes hypoglycemia protocol RISS only for now Endo consulted, Dr. Nesha Donaldson; appreciate recs * Lantus changed to 12 units HS * Novolog changed to 6 units AC * ISS low HgA1C - 7.1 accuchecks q6h Continue to monitor Hyponatremia; resolved * STOPPED medications due to potential s/e of hyponatremia * Zoloft, Trazodone and IV fluids. * Nephro Consult, Dr. Wong - help appreciated, f/u recs * urine sodium 113 --> 43 * urine osmol 502 --> 176 * serum osmol 276 * will continue to monitor Dysphagia; resolved Chest CT * particulate matter, possibly food, identified within the esophageal lumen intermixed with gas. * Incidental 6mm nodule within superior right breast. CXR * no acute cardiopulmonary disease Neck soft tissue CT * Abnormal circumferential thickening noted of the cervical esophagus. findings could be due to reflux esophagitis but esophageal carcinoma is not excluded. GI consulted, Dr. 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 Prophylactic Care * Heparin 5000u sc q8h - DC'ed due to anemia * SCDs for DVT ppx * Pepcid 20 ivp daily * Fall precautions * 1-[address] Derrick Singleton PGY1 <Wilner Meza - Last Filed: 09/07/17 19:52> Objective - Vital Signs/Intake and Output Vital Signs (last 24 hours): Temp Pulse Resp BP Pulse Ox 97.6 F 77 18 158/82 H 100 09/07/17 17:00 09/07/17 17:00 09/07/17 17:00 09/07/17 17:00 09/07/17 17:00 - Medications Medications: Current Medications Amlodipine Besylate (Norvasc) 5 mg NG DAILY [facility] Last Admin: 09/07/17 10:57 Dose: 5 mg Aspirin (Ecotrin) 81 mg PO DAILY [facility] Last Admin: 09/07/17 10:55 Dose: 81 mg Dexamethasone (Decadron Inj) 4 mg IVP Q6H [facility] Last Admin: 09/07/17 17:49 Dose: 4 mg Dextrose (Dextrose 50% Inj) 0 ml IV STAT PRN; Protocol PRN Reason: Hyglycemia Protocol Last Admin: 09/07/17 17:10 Dose: 50 ml Dextrose (Glutose 15) 0 gm PO ONCE PRN; Protocol PRN Reason: Hypoglycemia Protocol Efavirenz/Emtricitabine/Tenofovir (Atripla 600 Mg-200 Mg-300 Mg) 1 tab PO DAILY [facility] Last Admin: 09/07/17 10:56 Dose: 1 tab Famotidine (Pepcid) 20 mg PO DAILY [facility] Last Admin: 09/07/17 10:55 Dose: 20 mg Glucagon (Glucagen Diagnostic Kit) 0 mg IM STAT PRN; Protocol PRN Reason: Hypoglycemia Protocol Hydralazine HCl (Apresoline) 10 mg IVP Q6H PRN PRN Reason: Systolic Blood Pressure Last Admin: 09/05/17 08:53 Dose: 10 mg Valproate Sodium 250 mg/ (Sodium Chloride) 102.5 mls @ 100 mls/hr IVPB DAILY [facility] Last Admin: 09/07/17 10:53 Dose: 100 mls/hr Aztreonam 2 gm/ Sodium (Chloride) 100 mls @ 100 mls/hr IVPB Q8H [facility] Last Admin: 09/07/17 11:58 Dose: 100 mls/hr Vancomycin/Sodium Chloride (Vancocin) 1 gm in 200 mls @ 133 mls/hr IVPB Q12H [facility] Stop: 09/10/17 21:01 Last Admin: 09/07/17 08:41 Dose: 133 mls/hr Dextrose (Dextrose 5% In Water 1000 Ml) 1,000 mls @ 0 mls/hr IV .Q0M PRN; Protocol; Per Protocol PRN Reason: Hypoglycemia Protocol Fluconazole (Diflucan Iv 200 Mg/100 Ml Ns) 100 mls @ 100 mls/hr IVPB DAILY [facility] Insulin Aspart (Novolog) 0 unit SC ACHS [facility] PRN Reason: Protocol Last Admin: 09/07/17 17:50 Dose: Not Given Insulin Detemir (Levemir) 8 unit SC Q12 [facility] Levothyroxine Sodium (Synthroid) 125 mcg PO DAILY@0630 [facility] Last Admin: 09/07/17 06:35 Dose: 125 mcg Ondansetron HCl (Zofran Inj) 4 mg IVP Q6H PRN PRN Reason: Nausea/Vomiting Last Admin: 08/27/17 14:44 Dose: 4 mg Potassium Phos/Sodium Phos (Neutra-Phos) 1 pkt PO TID [facility] Last Admin: 09/07/17 17:49 Dose: 1 pkt Sucralfate (Carafate Oral Susp) 1 gm PO ACBHS [facility] Last Admin: 09/07/17 06:35 Dose: 1 gm Trimethoprim/Sulfamethoxazole (Bactrim Ds Tab) 1 tab PO MWF [facility] Last Admin: 09/05/17 10:10 Dose: 1 tab - Labs Labs: 09/07/17 08:22 09/07/17 08:22 PT 11.2 SECONDS (9.7-12.2) 08/08/17 10:10 INR 1.0 08/08/17 10:10 APTT 25 SECONDS (21-34) 08/08/17 10:10 Attending/Attestation - Attestation I have personally seen and examined this patient.: Yes I have fully participated in the care of the patient.: Yes I have reviewed all pertinent clinical information, including history, physical exam and plan: Yes Notes (Text): This is a 57years old female with AIDS,encephalopathy,dysphagia,altered mental status,anemia,thrombocytopenia ,hypothyroidism and thrombocytopenia. Patient was seen and examined today.she is awake and responsive.Able to say where she is .denies pain. Leukocytosis on Azactam and vanco Encephalopathy - Spoke to Dr. Denney. Given that her platelets have risen, we ordered an LP to be done under fluoro for Friday. 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 Opportunistic Infection ID Dr. Meneses Continue Diflucan, bactrim,HAART meds Patient will need to follow up with HIV clinic for continuation of HARRT therapy as out patient. * [facility] - Clinic at [address], [place] * [facility] - Clinic at [address], [place] Phone Anemia; most likely 2/2 to advanced AIDS Monitor cbc Diabetes Insulin and monitor sugar Hyponatremia started Samsca by nephrology Dysphagia and altered mental status continue NG feeding Platelets count is up.follow with GI for PEG D/W LEONEL Brunner yesterday History of hypothyroidism; stable * Synthroid 125mcg QD Urinary Retention Right breast mass - incidental finding on Chest CT; f/u as outpatient * patient will need script for diagnostic mammogram with ultrasound and FNA upon discharge. Prophylactic Care * Heparin 5000u sc q8h - DC'ed due to anemia * SCDs for DVT ppx * Pepcid 20 ivp daily * Advance directives-Full code D/W leonel Brunner Daughter in law yesterday phone number [phone]. 17 19:45 09/07/17 19:51
[2017-09-07] MEDS: (Novolog) Insulin Aspart, Recombinant 100 u/ml 10 ml vial SC SCH ×4 (08:00→22:06)
[2017-09-07] MEDS: Vancomycin 1 gm/NS 200 ml 1 GM/200 ML BAG IVPB SCH ×2 (08:41→20:01)
[2017-09-07 09:01] LABS: BASO % 0.2 % (0.0-2.0); EOS % 0.1 % (0.0-4.0); LYMPH % 5.3 % (20.0-40.0); MEAN CORPUSCULAR HEMOGLOBIN 29.6 pg (27.0-31.0); MEAN PLATELET VOLUME 8.7 fL (7.2-11.7); MONO # 1.4 K/uL (0.0-0.8); MONO % 7.5 % (0.0-10.0); NRBC % 0.1 % (0.0-2.0); PLATELET COUNT 138 K/uL (130-400); RED CELL DISTRIBUTION WIDTH 14.3 % (11.5-14.5); WHITE BLOOD COUNT 18.5 K/uL (4.8-10.8)
[2017-09-07 09:14] LABS: CHLORIDE 101 mmol/L (98-107)
[2017-09-07 09:15] LABS: POTASSIUM 4.3 mmol/L (3.6-5.2); SODIUM 131 mmol/L (132-148)
[2017-09-07 09:17] LABS: ALB/GLOB RATIO 0.8 (1.0-2.1); ALKALINE PHOSPHATASE 103 U/L (38-126); ALT/SGPT 29 U/L (9-52); AST/SGOT 29 U/L (14-36); BILIRUBIN,TOTAL 0.3 mg/dL (0.2-1.3); BLOOD UREA NITROGEN 32 mg/dL (7-17); CARBON DIOXIDE 22 mmol/L (22-30); GFR AFRICAN-AMERICAN > 60; TOTAL PROTEIN 6.8 g/dL (6.3-8.3)
[2017-09-07 09:18] LABS: GLUCOSE,RANDOM 137 mg/dL (65-105); MAGNESIUM 1.9 mg/dL (1.6-2.3); PHOSPHOROUS 3.4 mg/dL (2.5-4.5)
[2017-09-07 09:42] LABS: METAMYELOCYTE 2 % (0-0); MYELOCYTE 2 % (0-0); NEUTROPHIL 73 % (50-75); TOTAL CELLS COUNTED 100
[2017-09-07 09:43] LABS: LARGE PLATELETS PRESENT
[2017-09-07] MEDS: Valproate 250 MG in Sodium Chloride 0.9% 100 ML IVPB SCH (10:53)
[2017-09-07] MEDS: Efavirenz/Emtricitabine/Teno 1 TAB PO SCH (10:56)
[2017-09-07] MEDS: Potassium & Sodium Phosphate PO SCH ×3 (10:56→17:49)
[2017-09-07] MEDS: Insulin Detemir 100 units/ml Vial (Levemir) SC SCH ×2 (11:01→22:05)
--- NOTE | 2017-09-07 12:08 | CP.PCM.PN ---
Subjective - Date & Time of Evaluation Date of Evaluation: 09/07/17 Time of Evaluation: 12:06 - Subjective Subjective: RFV: Altered mental status S: Slightly more responsive. Reponds a bit to voice, but cant follow commands or speak Objective - Vital Signs/Intake and Output Vital Signs (last 24 hours): Temp Pulse Resp BP Pulse Ox 97.8 F 66 18 170/89 H 100 09/07/17 07:35 09/07/17 07:35 09/07/17 07:35 09/07/17 07:35 09/07/17 07:35 Intake and Output: 09/07/17 09/07/17 06:59 18:59 Intake Total 2760 Output Total 2250 Balance 510 - Medications Medications: Current Medications Amlodipine Besylate (Norvasc) 5 mg NG DAILY [facility] Last Admin: 09/07/17 10:57 Dose: 5 mg Aspirin (Ecotrin) 81 mg PO DAILY [facility] Last Admin: 09/07/17 10:55 Dose: 81 mg Dexamethasone (Decadron Inj) 4 mg IVP Q6H [facility] Last Admin: 09/07/17 05:19 Dose: 4 mg Dextrose (Dextrose 50% Inj) 0 ml IV STAT PRN; Protocol PRN Reason: Hyglycemia Protocol Last Admin: 09/06/17 16:30 Dose: 50 ml Dextrose (Glutose 15) 0 gm PO ONCE PRN; Protocol PRN Reason: Hypoglycemia Protocol Efavirenz/Emtricitabine/Tenofovir (Atripla 600 Mg-200 Mg-300 Mg) 1 tab PO DAILY [facility] Last Admin: 09/07/17 10:56 Dose: 1 tab Famotidine (Pepcid) 20 mg PO DAILY [facility] Last Admin: 09/07/17 10:55 Dose: 20 mg Glucagon (Glucagen Diagnostic Kit) 0 mg IM STAT PRN; Protocol PRN Reason: Hypoglycemia Protocol Hydralazine HCl (Apresoline) 10 mg IVP Q6H PRN PRN Reason: Systolic Blood Pressure Last Admin: 09/05/17 08:53 Dose: 10 mg Valproate Sodium 250 mg/ (Sodium Chloride) 102.5 mls @ 100 mls/hr IVPB DAILY [facility] Last Admin: 09/07/17 10:53 Dose: 100 mls/hr Dextrose/Sodium Chloride (Dextrose 5%/0.9% Ns 1000 Ml) 1,000 mls @ 100 mls/hr IV .Q10H [facility] Last Admin: 09/07/17 04:15 Dose: Not Given Aztreonam 2 gm/ Sodium (Chloride) 100 mls @ 100 mls/hr IVPB Q8H [facility] Last Admin: 09/07/17 11:58 Dose: 100 mls/hr Vancomycin/Sodium Chloride (Vancocin) 1 gm in 200 mls @ 133 mls/hr IVPB Q12H [facility] Stop: 09/10/17 21:01 Last Admin: 09/07/17 08:41 Dose: 133 mls/hr Dextrose (Dextrose 5% In Water 1000 Ml) 1,000 mls @ 0 mls/hr IV .Q0M PRN; Protocol; Per Protocol PRN Reason: Hypoglycemia Protocol Insulin Aspart (Novolog) 0 unit SC ACHS [facility] PRN Reason: Protocol Last Admin: 09/07/17 08:00 Dose: Not Given Insulin Detemir (Levemir) 8 unit SC Q12 [facility] Levothyroxine Sodium (Synthroid) 125 mcg PO DAILY@0630 [facility] Last Admin: 09/07/17 06:35 Dose: 125 mcg Ondansetron HCl (Zofran Inj) 4 mg IVP Q6H PRN PRN Reason: Nausea/Vomiting Last Admin: 08/27/17 14:44 Dose: 4 mg Potassium Phos/Sodium Phos (Neutra-Phos) 1 pkt PO TID [facility] Last Admin: 09/07/17 10:56 Dose: 1 pkt Sucralfate (Carafate Oral Susp) 1 gm PO ACBHS [facility] Last Admin: 09/07/17 06:35 Dose: 1 gm Trimethoprim/Sulfamethoxazole (Bactrim Ds Tab) 1 tab PO MWF [facility] Last Admin: 09/05/17 10:10 Dose: 1 tab - Labs Labs: 09/07/17 08:22 09/07/17 08:22 PT 11.2 SECONDS (9.7-12.2) 08/08/17 10:10 INR 1.0 08/08/17 10:10 APTT 25 SECONDS (21-34) 08/08/17 10:10 - Constitutional Appears: No Acute Distress, Chronically Ill - Head Exam Head Exam: ATRAUMATIC, NORMOCEPHALIC - Eye Exam Eye Exam: Normal appearance. absent: Scleral icterus Pupil Exam: PERRL - Respiratory Exam Respiratory Exam: NORMAL BREATHING PATTERN - Cardiovascular Exam Cardiovascular Exam: +S1, +S2 - GI/Abdominal Exam GI & Abdominal Exam: Soft. absent: Distended, Tenderness - Neurological Exam Neurological Exam: Altered - Skin Skin Exam: Dry, Normal Color, Warm Assessment and Plan - Assessment and Plan (Free Text) Assessment: 57 year old female with h/o HTN, DM, HIV/AIDS, Renal failure on HD with altered mental status. 1. Altered mental status 2. Malnutrition 3. AIDS Plan: -uncertain caused for deterioration in mental status -she hasn't improved significantly so far -plan for LP tomorrow per neurology -agree that patient will need PEG for retirement nutrition and it seems that the family wants this -continue dobhoff tube feedings at present -will decide on timing of PEG depending on clinical course
--- NOTE | 2017-09-07 13:12 | PN ---
ENDO FOLLOWUP NOTE DATE: LOCATION: Room 654. SUBJECTIVE: This is a 57-year-old female with recent uncontrolled type 1 insulin-dependent diabetes, now being follows closely for metabolic management. She is ongoing IV steroids therapy as given with supervening glycemic fluctuations as suspected. Her latest glucose levels today have ranged from 77 to 118 and 155 mg/dL. So, at this time, we will modify her basal and bolus insulin regimen and lower the Levemir to 8 units subcu as 12 hours at 10:00 a.m. and 10:00 p.m. daily as ordered. We will titrate incrementally as indicated to optimize metabolic control. We will follow and advise accordingly. Nesha Donaldson MD
--- NOTE | 2017-09-07 14:35 | CP.PCM.CON ---
History of Present Illness - History of Present Illness History of Present Illness: 57F . According to EMR, the patient was recently discharged from [facility] where she was treated for dysphagi . A per notes, the EGD suggested esophagial ulceration and the pt was discharge on PPI and abx?. . She has had a reported 20lb weight loss since February. Pt condition has declined since admission. She has become non-verbal. CT soft neck tissue, the head CT and brain MRI , all showed no acute findings. . She was placed on Tube feeds via NG tube. Recently had fever septic work up repeated Now more alert and responding to family members 1/2 sets of bloofd cultures + for cocci all lines changed / removed PMH: AIDS, DM, HTN, gastritis, esophagitis, AIDS, LOLIS, was on HD for 4 weeks, porthocath removed 5 days ago Soc. Hx: lives with significant other ( Mr. Emiliano Hoang, who is also at the hospital at present), retired Fam hx: Unknown Endoscopy hx: EGD 3 weeks ago?: esophageal ulcerations Review of Systems - Review of Systems All systems: reviewed and no additional remarkable complaints except - Constitutional Constitutional: As Per HPI - EENT Eyes: absent: As Per HPI, Blind Spots, Blurred Vision, Change in Vision, Decreased Night Vision, Diplopia, Discharge, Dry Eye, Exophthalmos, Floaters, Irritation, Itchy Eyes, Loss of Peripheral Vision, Pain, Photophobia, Requires Corrective Lenses, Sees Flashes, Spots in Vision, Tunnel Vision, Other Visual Disturbances, Loss of Vision, Other Ears: absent: As Per HPI, Decreased Hearing, Ear Discharge, Ear Pain, Tinnitus, Abnormal Hearing, Disequilibrium, Dizziness, Other Nose/Mouth/Throat: absent: As Per HPI, Epistaxis, Nasal Congestion, Nasal Discharge, Nasal Obstruction, Nasal Trauma, Nose Pain, Post Nasal Drip, Sinus Pain, Sinus Pressure, Bleeding Gums, Change in Voice, Dental Pain, Dry Mouth, Dysphagia, Halitosis, Hoarsness, Lip Swelling, Mouth Lesions, Mouth Pain, Odynophagia, Sore Throat, Throat Swelling, Tongue Swelling, Facial Pain, Neck Pain, Neck Mass, Other - Breasts Breasts: absent: As Per HPI, Change in Shape, Mass, Pain, Nipple Discharge, Nipple Inversion, Skin Changes, Swelling, Other - Cardiovascular Cardiovascular: absent: As Per HPI, Acrocyanosis, Chest Pain, Chest Pain at Rest , Chest Pain with Activity, Claudication, Diaphoresis, Dyspnea, Dyspnea on Exertion, Edema, Irregular Heart Rhythm, Pain Radiating to Arm/Neck/Jaw, Leg Edema, Leg Ulcers, Lightheadedness, Orthopnea, Palpitations, Paroxysmal Nocturnal Dyspnea, Pedal Edema, Radiating Pain, Rapid Heart Rate, Slow Heart Rate, Syncope, Other - Respiratory Respiratory: absent: As Per HPI, Cough, Dyspnea, Hemoptysis, Dyspnea on Exertion , Wheezing, Snoring, Stridor, Pain on Inspiration, Chest Congestion, Excessive Mucous Production, Change in Mucous Color, Pain with Coughing, Other - Gastrointestinal Gastrointestinal: As Per HPI - Genitourinary Genitourinary: absent: As Per HPI, Change in Urinary Stream, Difficulty Urinating, Dysuria, Flank Pain, Hematuria, Pyuria, Nocturia, Urinary Incontinence, Urinary Frequency, Urinary Hesitance, Urinary Urgency, Voiding Freq/Small Amts, Freq UTI, Hx Renal/Bladder Calculi, Hx /Renal Surgery, Bladder Distension, Other - Reproductive: Female Reproductive:Female: absent: As Per HPI, Amenorrhea, Amenorrhea/ Control, Currently Menstual, Cycle <21 Days, Cycle >35 Days, Cycle Variable, Menses 1-7 Days, Menses >/= 8 Days, Menses Variable, Cycle > 4 Weeks Between, No Menses for 6 Months, Heavy Menses, Light Menses, Normal Menses, Spotting Between Cycles , S/P Hysterectomy, Menopausal, Post Menopausal, Premenarche, Abnormal Vaginal Bleeding, Dysmenorrhea, Dyspareunia, Genital Lesions, Genital Pruritis, Pelvic Pain, Prolapse Symptoms, Sexual Dysfunction, Vaginal Discharge, Vaginal Dryness , Vaginal Odor, Vaginal Pruritis, Other - Menstruation Menstruation: absent: As Per HPI, Amenorrhea, Amenorrhea/ Control, Currently Menstual, Cycle <21 Days, Cycle >35 Days, Cycle Variable, Menses 1-7 Days, Menses >/= 8 Days, Menses Variable, Cycle > 4 Weeks Between, No Menses for 6 Months, Heavy Menses, Light Menses, Normal Menses, Spotting Between Cycles , S/P Hysterectomy, Menopausal, Post Menopausal, Premenarche, Abnormal Vaginal Bleeding, Dysmenorrhea, Other - Musculoskeletal Musculoskeletal: As Per HPI - Integumentary Integumentary: As Per HPI - Neurological Neurological: As Per HPI - Psychiatric Psychiatric: As Per HPI - Endocrine Endocrine: absent: As Per HPI, Change in Body Appearance, Change in Libido, Cold Intolorance, Deepening of Voice, Excessive Sweating, Fatigue, Flushing, Heat Intolorance, Increase in Ring/Shoe/Hat Size, Palpitations, Polydipsia, Polyphagia, Polyuria, Other - Hematologic/Lymphatic Hematologic: absent: As Per HPI, Easy Bleeding, Easy Bruising, Lymphadenopathy, Other Past Patient History - Past Medical History & Family History Past Medical History?: Yes - Past Social History Smoking Status: Never Smoked - CARDIAC Hx Hypertension: Yes - PULMONARY Hx Respiratory Disorders: No - NEUROLOGICAL Hx Neurological Disorder: No - HEENT Hx HEENT Problems: No - RENAL Hx Chronic Kidney Disease: No - ENDOCRINE/METABOLIC Hx Hypothyroidism: Yes - HEMATOLOGICAL/ONCOLOGICAL Hx Blood Disorders: No - INTEGUMENTARY Hx Dermatological Problems: No - MUSCULOSKELETAL/RHEUMATOLOGICAL Hx Musculoskeletal Disorders: No - GASTROINTESTINAL Hx Gastrointestinal Disorders: No - GENITOURINARY/GYNECOLOGICAL Hx Genitourinary Disorders: No - PSYCHIATRIC Hx Substance Use: No - SURGICAL HISTORY Hx Section: Yes (x2) - ANESTHESIA Hx Anesthesia: Yes Hx Anesthesia Reactions: No Meds Allergies/Adverse Reactions: Allergies Allergy/AdvReac Type Severity Reaction Status Date / Time Penicillins Allergy Severe ANGIOEDEMA Verified 08/08/17 09:37 - Medications Medications: Current Medications Amlodipine Besylate (Norvasc) 5 mg NG DAILY [facility] Last Admin: 09/07/17 10:57 Dose: 5 mg Aspirin (Ecotrin) 81 mg PO DAILY [facility] Last Admin: 09/07/17 10:55 Dose: 81 mg Dexamethasone (Decadron Inj) 4 mg IVP Q6H [facility] Last Admin: 09/07/17 12:06 Dose: 4 mg Dextrose (Dextrose 50% Inj) 0 ml IV STAT PRN; Protocol PRN Reason: Hyglycemia Protocol Last Admin: 09/06/17 16:30 Dose: 50 ml Dextrose (Glutose 15) 0 gm PO ONCE PRN; Protocol PRN Reason: Hypoglycemia Protocol Efavirenz/Emtricitabine/Tenofovir (Atripla 600 Mg-200 Mg-300 Mg) 1 tab PO DAILY [facility] Last Admin: 09/07/17 10:56 Dose: 1 tab Famotidine (Pepcid) 20 mg PO DAILY [facility] Last Admin: 09/07/17 10:55 Dose: 20 mg Glucagon (Glucagen Diagnostic Kit) 0 mg IM STAT PRN; Protocol PRN Reason: Hypoglycemia Protocol Hydralazine HCl (Apresoline) 10 mg IVP Q6H PRN PRN Reason: Systolic Blood Pressure Last Admin: 09/05/17 08:53 Dose: 10 mg Valproate Sodium 250 mg/ (Sodium Chloride) 102.5 mls @ 100 mls/hr IVPB DAILY [facility] Last Admin: 09/07/17 10:53 Dose: 100 mls/hr Dextrose/Sodium Chloride (Dextrose 5%/0.9% Ns 1000 Ml) 1,000 mls @ 100 mls/hr IV .Q10H [facility] Last Admin: 09/07/17 04:15 Dose: Not Given Aztreonam 2 gm/ Sodium (Chloride) 100 mls @ 100 mls/hr IVPB Q8H [facility] Last Admin: 09/07/17 11:58 Dose: 100 mls/hr Vancomycin/Sodium Chloride (Vancocin) 1 gm in 200 mls @ 133 mls/hr IVPB Q12H [facility] Stop: 09/10/17 21:01 Last Admin: 09/07/17 08:41 Dose: 133 mls/hr Dextrose (Dextrose 5% In Water 1000 Ml) 1,000 mls @ 0 mls/hr IV .Q0M PRN; Protocol; Per Protocol PRN Reason: Hypoglycemia Protocol Insulin Aspart (Novolog) 0 unit SC ACHS [facility] PRN Reason: Protocol Last Admin: 09/07/17 12:08 Dose: Not Given Insulin Detemir (Levemir) 8 unit SC Q12 [facility] Levothyroxine Sodium (Synthroid) 125 mcg PO DAILY@0630 [facility] Last Admin: 09/07/17 06:35 Dose: 125 mcg Ondansetron HCl (Zofran Inj) 4 mg IVP Q6H PRN PRN Reason: Nausea/Vomiting Last Admin: 08/27/17 14:44 Dose: 4 mg Potassium Phos/Sodium Phos (Neutra-Phos) 1 pkt PO TID [facility] Last Admin: 09/07/17 13:25 Dose: 1 pkt Sucralfate (Carafate Oral Susp) 1 gm PO ACBHS [facility] Last Admin: 09/07/17 06:35 Dose: 1 gm Trimethoprim/Sulfamethoxazole (Bactrim Ds Tab) 1 tab PO MWF [facility] Last Admin: 09/05/17 10:10 Dose: 1 tab Physical Exam - Constitutional Appears: Non-toxic, Cachectic, Chronically Ill - Head Exam Head Exam: ATRAUMATIC, NORMAL INSPECTION, NORMOCEPHALIC - Eye Exam Eye Exam: EOMI, PERRL. absent: Scleral icterus Pupil Exam: NORMAL ACCOMODATION - ENT Exam ENT Exam: Mucous Membranes Dry, Normal Oropharynx. absent: Normal External Ear Exam - Neck Exam Neck exam: Negative for: Lymphadenopathy, Thyromegaly - Respiratory Exam Respiratory Exam: Decreased Breath Sounds, Rhonchi - Cardiovascular Exam Cardiovascular Exam: REGULAR RHYTHM, +S1, +S2 - GI/Abdominal Exam GI & Abdominal Exam: Diminished Bowel Sounds, Soft. absent: Tenderness - Rectal Exam Rectal Exam: Deferred - Exam Exam: NORMAL INSPECTION - Extremities Exam Extremities exam: Negative for: pedal edema - Back Exam Back exam: absent: CVA tenderness (L), CVA tenderness (R) - Neurological Exam Neurological exam: Alert, CN II-XII Intact, Motor Sensory Deficit, Oriented x3 - Psychiatric Exam Psychiatric exam: Depressed - Skin Skin Exam: Dry Results - Vital Signs Recent Vital Signs: Last Vital Signs Temp 97.8 F 09/07/17 07:35 Pulse 66 09/07/17 07:35 Resp 18 09/07/17 07:35 BP 170/89 H 09/07/17 07:35 Pulse Ox 100 09/07/17 07:35 - Labs Result Diagrams: 09/07/17 08:22 09/07/17 08:22 Labs: Laboratory Results - last 24 hr 09/06/17 09/06/17 09/06/17 16:28 17:07 21:21 WBC RBC Hgb Hct MCV MCH MCHC RDW Plt Count MPV Neut % (Auto) Lymph % (Auto) [place] % (Auto) Eos % (Auto) Baso % (Auto) Neut # Lymph # [place] # Eos # Baso # Neutrophils % (Manual) Band Neutrophils % Lymphocytes % (Manual) Monocytes % (Manual) Metamyelocytes % Myelocytes % Platelet Estimate Large Platelets Hypochromasia (manual) Poikilocytosis (manual Anisocytosis (manual) Ovalocytes Sodium Potassium Chloride Carbon Dioxide Anion Gap BUN Creatinine Est GFR ( Amer) Est GFR (Non-Af Amer) POC Glucose (mg/dL) 34 L* 174 H 121 H Random Glucose Calcium Phosphorus Magnesium Total Bilirubin AST ALT Alkaline Phosphatase Total Protein Albumin Globulin Albumin/Globulin Ratio 09/07/17 09/07/17 09/07/17 00:58 02:05 05:01 WBC RBC Hgb Hct MCV MCH MCHC RDW Plt Count MPV Neut % (Auto) Lymph % (Auto) [place] % (Auto) Eos % (Auto) Baso % (Auto) Neut # Lymph # [place] # Eos # Baso # Neutrophils % (Manual) Band Neutrophils % Lymphocytes % (Manual) Monocytes % (Manual) Metamyelocytes % Myelocytes % Platelet Estimate Large Platelets Hypochromasia (manual) Poikilocytosis (manual Anisocytosis (manual) Ovalocytes Sodium Potassium Chloride Carbon Dioxide Anion Gap BUN Creatinine Est GFR ( Amer) Est GFR (Non-Af Amer) POC Glucose (mg/dL) 73 114 H 155 H Random Glucose Calcium Phosphorus Magnesium Total Bilirubin AST ALT Alkaline Phosphatase Total Protein Albumin Globulin Albumin/Globulin Ratio 09/07/17 09/07/17 09/07/17 07:55 08:22 08:22 WBC 18.5 H RBC 3.56 L Hgb 10.6 L Hct 31.0 L MCV 87.0 MCH 29.6 MCHC 34.0 RDW 14.3 Plt Count 138 MPV 8.7 Neut % (Auto) 86.9 H Lymph % (Auto) 5.3 L [place] % (Auto) 7.5 Eos % (Auto) 0.1 Baso % (Auto) 0.2 Neut # 16.1 H Lymph # 1.0 [place] # 1.4 H Eos # 0.0 Baso # 0.0 Neutrophils % (Manual) 73 Band Neutrophils % 6 H Lymphocytes % (Manual) 8 L Monocytes % (Manual) 9 Metamyelocytes % 2 H Myelocytes % 2 H Platelet Estimate Normal Large Platelets Present Hypochromasia (manual) Slight Poikilocytosis (manual Slight Anisocytosis (manual) Slight Ovalocytes Slight Sodium 131 L Potassium 4.3 Chloride 101 Carbon Dioxide 22 Anion Gap 12 BUN 32 H Creatinine 0.8 Est GFR ( Amer) > 60 Est GFR (Non-Af Amer) > 60 POC Glucose (mg/dL) 118 H Random Glucose 137 H Calcium 9.0 Phosphorus 3.4 Magnesium 1.9 Total Bilirubin 0.3 AST 29 ALT 29 Alkaline Phosphatase 103 Total Protein 6.8 Albumin 3.0 L Globulin 3.8 Albumin/Globulin Ratio 0.8 L 09/07/17 11:43 WBC RBC Hgb Hct MCV MCH MCHC RDW Plt Count MPV Neut % (Auto) Lymph % (Auto) [place] % (Auto) Eos % (Auto) Baso % (Auto) Neut # Lymph # [place] # Eos # Baso # Neutrophils % (Manual) Band Neutrophils % Lymphocytes % (Manual) Monocytes % (Manual) Metamyelocytes % Myelocytes % Platelet Estimate Large Platelets Hypochromasia (manual) Poikilocytosis (manual Anisocytosis (manual) Ovalocytes Sodium Potassium Chloride Carbon Dioxide Anion Gap BUN Creatinine Est GFR ( Amer) Est GFR (Non-Af Amer) POC Glucose (mg/dL) 77 Random Glucose Calcium Phosphorus Magnesium Total Bilirubin AST ALT Alkaline Phosphatase Total Protein Albumin Globulin Albumin/Globulin Ratio Assessment & Plan (1) HIV (human immunodeficiency virus infection) Status: Acute (2) HIV (human immunodeficiency virus infection) Status: Acute (3) Encephalopathy acute Status: Acute Priority: High (4) Leukocytosis Status: Acute - Assessment and Plan (Free Text) Assessment: improving on empiric IV antibiotics consider viral genotype test for resistance add diflucan
[2017-09-07] MEDS ORDERED: Dextrose 50% SYRINGE Inj (50 ml) ONE (17:08)
[2017-09-07] MEDS: Dextrose 50% SYRINGE Inj (50 ml) IV PRN (17:10)
--- NOTE | 2017-09-07 17:28 | RAD ---
HISTORY: ngt placement COMPARISON: Comparison is made to the previous study dated 09/05/2017 FINDINGS: LUNGS: No evidence of new infiltrate or consolidation in the lungs. PLEURA: No significant pleural effusion identified, no pneumothorax apparent. CARDIOVASCULAR: Normal. OSSEOUS STRUCTURES: No significant abnormalities. VISUALIZED UPPER ABDOMEN: The NG tube seen extending to the stomach. OTHER FINDINGS: None. IMPRESSION: No active disease.
[2017-09-08] MEDS: Dexamethasone 4 mg/1 ml IVP SCH ×4 (00:01→17:19)
[2017-09-08] MEDS: Dextrose 5%/0.9% NS 1,000 ML IV SCH (02:33)
[2017-09-08] MEDS: Aztreonam 2 GM in Sodium Chloride 0.9% 100 ML IVPB SCH ×3 (03:54→20:00)
[2017-09-08] MEDS: Levothyroxine 125 MCG TAB PO SCH (05:47)
[2017-09-08] MEDS: Sucralfate 1 gm/10 ml Oral Susp UD PO SCH ×2 (06:30→21:18)
[2017-09-08 06:39] LABS: BASO % 0.2 % (0.0-2.0); EOS % 0.1 % (0.0-4.0); HEMATOCRIT 28.6 % (34.0-47.0); LYMPH % 6.2 % (20.0-40.0); MEAN CELL VOLUME 86.2 fL (81.0-99.0); MEAN CORPUSCULAR HEMOGLOBIN 29.5 pg (27.0-31.0); MEAN CORPUSCULAR HGB CONC 34.3 g/dL (33.0-37.0); MEAN PLATELET VOLUME 8.8 fL (7.2-11.7); MONO # 1.2 K/uL (0.0-0.8); MONO % 7.9 % (0.0-10.0); PLATELET COUNT 154 K/uL (130-400); RED CELL DISTRIBUTION WIDTH 14.5 % (11.5-14.5); WHITE BLOOD COUNT 15.8 K/uL (4.8-10.8)
--- NOTE | 2017-09-08 07:22 | CP.PCM.PN ---
<Rupesh Sahu - Last Filed: 09/08/17 15:03> Subjective - Date & Time of Evaluation Date of Evaluation: 09/08/17 Time of Evaluation: 07:22 - Subjective Subjective: PGY1 Medicine Note for Dr. Valle Patient seen and examined at bedside this morning. The patient is awake and responsive to questions. Patient states that she is hungry. She states that she is not in any pain. Patient knows that she is in the hospital. Patient reports that she is feeling much better. Denies f/c, n/v, d/c, sob, cp or abd pain. Objective - Vital Signs/Intake and Output Vital Signs (last 24 hours): Temp Pulse Resp BP Pulse Ox 98.2 F 82 20 166/92 H 96 09/08/17 04:10 09/08/17 04:10 09/08/17 04:10 09/08/17 04:10 09/08/17 00:58 Intake and Output: 09/08/17 09/08/17 06:59 18:59 Intake Total 2540 Output Total 1850 Balance 690 - Medications Medications: Current Medications Amlodipine Besylate (Norvasc) 5 mg NG DAILY [facility] Last Admin: 09/07/17 10:57 Dose: 5 mg Aspirin (Ecotrin) 81 mg PO DAILY [facility] Last Admin: 09/07/17 10:55 Dose: 81 mg Dexamethasone (Decadron Inj) 4 mg IVP Q6H [facility] Last Admin: 09/08/17 05:46 Dose: 4 mg Dextrose (Dextrose 50% Inj) 0 ml IV STAT PRN; Protocol PRN Reason: Hyglycemia Protocol Last Admin: 09/07/17 17:10 Dose: 50 ml Dextrose (Glutose 15) 0 gm PO ONCE PRN; Protocol PRN Reason: Hypoglycemia Protocol Efavirenz/Emtricitabine/Tenofovir (Atripla 600 Mg-200 Mg-300 Mg) 1 tab PO DAILY [facility] Last Admin: 09/07/17 10:56 Dose: 1 tab Famotidine (Pepcid) 20 mg PO DAILY [facility] Last Admin: 09/07/17 10:55 Dose: 20 mg Glucagon (Glucagen Diagnostic Kit) 0 mg IM STAT PRN; Protocol PRN Reason: Hypoglycemia Protocol Hydralazine HCl (Apresoline) 10 mg IVP Q6H PRN PRN Reason: Systolic Blood Pressure Last Admin: 09/05/17 08:53 Dose: 10 mg Valproate Sodium 250 mg/ (Sodium Chloride) 102.5 mls @ 100 mls/hr IVPB DAILY [facility] Last Admin: 09/07/17 10:53 Dose: 100 mls/hr Aztreonam 2 gm/ Sodium (Chloride) 100 mls @ 100 mls/hr IVPB Q8H [facility] Last Admin: 09/08/17 03:54 Dose: 100 mls/hr Vancomycin/Sodium Chloride (Vancocin) 1 gm in 200 mls @ 133 mls/hr IVPB Q12H [facility] Stop: 09/10/17 21:01 Last Admin: 09/07/17 20:01 Dose: 133 mls/hr Dextrose (Dextrose 5% In Water 1000 Ml) 1,000 mls @ 0 mls/hr IV .Q0M PRN; Protocol; Per Protocol PRN Reason: Hypoglycemia Protocol Fluconazole (Diflucan Iv 200 Mg/100 Ml Ns) 100 mls @ 100 mls/hr IVPB DAILY [facility] Insulin Aspart (Novolog) 0 unit SC ACHS [facility] PRN Reason: Protocol Last Admin: 09/07/17 22:06 Dose: Not Given Insulin Detemir (Levemir) 8 unit SC Q12 [facility] Last Admin: 09/07/17 22:05 Dose: 8 unit Levothyroxine Sodium (Synthroid) 125 mcg PO DAILY@0630 [facility] Last Admin: 09/08/17 05:47 Dose: 125 mcg Ondansetron HCl (Zofran Inj) 4 mg IVP Q6H PRN PRN Reason: Nausea/Vomiting Last Admin: 08/27/17 14:44 Dose: 4 mg Potassium Phos/Sodium Phos (Neutra-Phos) 1 pkt PO TID [facility] Last Admin: 09/07/17 17:49 Dose: 1 pkt Sucralfate (Carafate Oral Susp) 1 gm PO ACBHS [facility] Last Admin: 09/08/17 06:30 Dose: 1 gm Trimethoprim/Sulfamethoxazole (Bactrim Ds Tab) 1 tab PO MWF [facility] Last Admin: 09/05/17 10:10 Dose: 1 tab - Labs Labs: 09/08/17 06:26 09/07/17 08:22 PT 11.1 SECONDS (9.7-12.2) 09/08/17 06:26 INR 1.0 09/08/17 06:26 APTT 26 SECONDS (21-34) 09/08/17 06:26 - Constitutional Appears: No Acute Distress, Chronically Ill - Head Exam Head Exam: ATRAUMATIC, NORMOCEPHALIC - Eye Exam Eye Exam: EOMI, Normal appearance - ENT Exam ENT Exam: Mucous Membranes Moist - Respiratory Exam Respiratory Exam: Clear to Ausculation Bilateral, NORMAL BREATHING PATTERN. absent: Accessory Muscle Use, Rales, Wheezes, Respiratory Distress - Cardiovascular Exam Cardiovascular Exam: REGULAR RHYTHM, +S1, +S2 - GI/Abdominal Exam GI & Abdominal Exam: Soft, Normal Bowel Sounds. absent: Distended, Firm, Guarding, Rigid, Tenderness - Extremities Exam Extremities Exam: Normal Inspection. absent: Pedal Edema, Tenderness Additional comments: scds in place - Neurological Exam Neurological Exam: Alert, Awake - Psychiatric Exam Psychiatric exam: Depressed, Flat Affect - Skin Skin Exam: Dry, Normal Color, Warm Assessment and Plan - Assessment and Plan (Free Text) Plan: AIDS, acute encephalopathy 09/08: Per Neuro note, it appears LP is tentatively scheduled for tomorrow, sunday 09/09. Platelet count is 154 today. Patient is more alert and awake, answering questions today. Patient still appears very lethargic and weak. Per GI , PEG tube placement will remain pending for further observation of hospital course. GI would like ID eval for potential infectious complications of PEG tube placement. 09/06: Spoke to Dr. Denney. Given that her platelets have risen, we ordered an LP to be done under fluoro for Friday. 09/05: Patient shakes head yes and no to questions today and actually spoke! When asked where she was, patient responded with, "the hospital." Patient is still very lethargic, but cognition appears to be improving. Will continue to monitor. Patient is still currently receiving tube feedings through the NG tube. Dr. Cervantes re-consulted for PEG tube evaluation. Spoke to Dr. Cervantes about PEG tube evaluation, he requested that someone else be consulted since he has not seen the patient since . Discussed with Dr. Oshea, he requested specifically that Dr. Estrada be consulted for a second GI opinion. Dr. Estrada's fellow Dr. Shah called and informed. Dr. Shah stated that he will see the patient in the morning tomorrow and will plan for PEG placement either friday or friday next week. 09/03: Patient's platelets still too low for LP even after multiple platelet transfusions. Dr. Denney is requesting platelets be >75. Will discuss with Dr. Denney possibility of performing a LP shortly after a platelet transfusion is completed. Will need to be transfused more platelets. Dr. Denney would like to perform LP under anesthesia due to patient's mental status and inability to follow commands properly. 09/01: Patient was unable to be awoken today. She responded to painful stimuli by pulling away and moaning. She was able to move all four extremities. Discussed with patient's that the patient's prognosis is very poor. He states he understands. Patient will likely need a LP to acquire CSF fluid for further eval. Transfused 1 unit of platelets today. f/u EEG discontinued morphine 08/31: She is somulent. Able to open eyes, random slow movements of arms and legs. Not following any commands. She was started on IV decardon yesterday. She will likley need LP to aquire CSF in the future to again test for JAGUAR virus since imaging via MRI is suggesting progressive multifocal leukoencephalopathy. Previous testing of JAGUAR virus were negative. This being said her platelet count is very low, transfusing 1 unit today. Pending hematology evaluation. 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 Neck MRA 08/29/17: No significant stenosis seen in the visualized bilateral common or internal carotid arteries. Mild right ICA proximal stenosis is identified with plaque identified at the right carotid bulb. Widely patent bilateral common carotids but otherwise, as imaged. Symmetric vertebrobasilar circulation. Head MRA 08/29/17: Suboptimal diagnostic quality due to motion degraded images, allowing for this, no occlusion. Apparent narrowing in bilateral M1 segments could be related to motion artifacts. Patient potentially had a seizure over night. CT (08/22) was negative for any acute findings. Brain MRI was ordered for f/u. patient has not had any more events since then Neurology Consulted, Dr. Denney --> Help appreciated; states that all changes in AMS are most likely due to AIDS Brain MRI w/o contrast(08/22) - Mild diffuse/confluent nonspecific white matter changes as described. Findings are of uncertain etiology though could represent sequela of HIV encephalopathy. PML not excluded. See above discussion for additional differential diagnostic considerations. Questionable secretions/opacification of exuberantly aerated mastoid air cells ramyfing into the left petrous apex however the possibility apical petrositis or small the left petrous CT apex cholesterol granuloma. Repeat Head CT w/o contrast 08/28/17 - Significant motion artifact limits this exam however interval edema is identified at the right greater than left basal ganglia and thalami as well as the bilateral occipital lobes and the right parietal lobe. Is difficult to determine definitively though this is vasogenic or cytotoxic however embolic infarction is questioned. Given the basal ganglia and thalami being affected focally, and anoxic insult is included in the differential diagnosis or even though there is no global loss of vaca-white matter differentiation and edema in this patient. Infectious or metabolic etiologies are not excluded but are not favored. * EEG ordered for morning of 08/23: This is a probably normal EEG. There was increased beta activity noticed intermittently. This could be a normal finding. No focal slowing no seizure like activity was observed. Correlation with clinical findings is needed. 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 Opportunistic Infection ID Dr. Meneses --> help appreciated * Continue Diflucan, bactrim * Started Atripla started 08/27/17 - CT head 08/11 - Negative - MRI 08/12 - unremarkable - LDH - 478 - CD4 - 72 (AIDS confirmed) -->repeat 110 - HIV-1 RNA Qnt (RT-PCR) - 5.80 high - Viral Load: Must r/o infectious causes * CMV - IgG > 10; IgM <30; Dennotes previous infection, no acute infection * Crypto - <1:2 * RPR - nonreactive * Toxoplasma - IgG < 7.2; IgM < 8 - Patient started on empiric antibiotic therapy on Wednesday 09/05 with Aztreonam and Vancomyocin due to rising leukocytosis. Leukocytosis improving 20.6 --> 15.8. AIDS 08/31: On Atripla at this time. This is being crushed and given via NGT * Dr. Meneses recs * Bactrim DS 1 tab PO M/W/ * Atripla [id number](Efavirenz/Emtricitabine/Teno) 1 tab PO daily - script written and placed in chart for pt's to pick out hand and fill, so when patient is discharged to [facility], he will be able to take her medication with her, as [facility] does not usually provide HARRT medications. Dr. Sahu discussed with pt's , Emiliano Hoang, on the phone. He stated he understands and will pick out hand prescription to fill it by 08/28. * Neupogen given 08/25 * HIV screen Positive, CD4 = 72, repeat CD4 = 110 * hep panel negative * Will f/u recs for HARRT therapy upon discharge. * Patient will need to follow up with HIV clinic for continuation of HARRT therapy as out patient. * [facility] - Clinic at [address], [place] * [facility] - Clinic at [address], [place] Phone Anemia; most likely 2/2 to advanced AIDS 09/08: Hg 9.8; platelets increased to 154 09/06: Platelet count gracia to 130 08/31: Patient's platelet count continues to decrease, conset recived for one unit of platelets to be given * Improved to Hgb of 12.7 from 7.1 - patient given 2 units pRBCs on 08/26/17 ( consent given by , Emiliano Hoang, on phone) * continue to monitor Diabetes hypoglycemia protocol RISS only for now Endo consulted, Dr. Nesha Donaldson; appreciate recs * Levemir 8units SC Q12 * ISS low HgA1C - 7.1 accuchecks q6h Continue to monitor Hyponatremia; resolved * STOPPED medications due to potential s/e of hyponatremia * Zoloft, Trazodone and IV fluids. * Nephro Consult, Dr. Wong - help appreciated, f/u recs * urine sodium 113 --> 43 * urine osmol 502 --> 176 * serum osmol 276 * will continue to monitor Dysphagia; resolved Chest CT * particulate matter, possibly food, identified within the esophageal lumen intermixed with gas. * Incidental 6mm nodule within superior right breast. CXR * no acute cardiopulmonary disease Neck soft tissue CT * Abnormal circumferential thickening noted of the cervical esophagus. findings could be due to reflux esophagitis but esophageal carcinoma is not excluded. GI consulted, Dr. 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 Prophylactic Care * Heparin 5000u sc q8h - DC'ed due to anemia * SCDs for DVT ppx * Pepcid 20 ivp daily * Fall precautions Case discussed with Dr. Tori Goddard Adelina PGY1 <Drew Valle H - Last Filed: 09/08/17 16:17> Objective - Vital Signs/Intake and Output Vital Signs (last 24 hours): Temp Pulse Resp BP Pulse Ox 97.6 F 87 18 157/85 H 100 09/08/17 07:35 09/08/17 15:57 09/08/17 07:35 09/08/17 07:35 09/08/17 07:35 Intake and Output: 09/08/17 09/08/17 06:59 18:59 Intake Total 2540 Output Total 1850 Balance 690 - Medications Medications: Current Medications Amlodipine Besylate (Norvasc) 5 mg NG DAILY [facility] Last Admin: 09/08/17 10:31 Dose: 5 mg Aspirin (Ecotrin) 81 mg PO DAILY [facility] Last Admin: 09/08/17 10:31 Dose: 81 mg Dexamethasone (Decadron Inj) 4 mg IVP Q6H [facility] Last Admin: 09/08/17 12:10 Dose: 4 mg Dextrose (Dextrose 50% Inj) 0 ml IV STAT PRN; Protocol PRN Reason: Hyglycemia Protocol Last Admin: 09/07/17 17:10 Dose: 50 ml Dextrose (Glutose 15) 0 gm PO ONCE PRN; Protocol PRN Reason: Hypoglycemia Protocol Efavirenz/Emtricitabine/Tenofovir (Atripla 600 Mg-200 Mg-300 Mg) 1 tab PO DAILY [facility] Last Admin: 09/08/17 10:31 Dose: 1 tab Famotidine (Pepcid) 20 mg PO DAILY [facility] Last Admin: 09/08/17 10:31 Dose: 20 mg Glucagon (Glucagen Diagnostic Kit) 0 mg IM STAT PRN; Protocol PRN Reason: Hypoglycemia Protocol Hydralazine HCl (Apresoline) 10 mg IVP Q6H PRN PRN Reason: Systolic Blood Pressure Last Admin: 09/05/17 08:53 Dose: 10 mg Valproate Sodium 250 mg/ (Sodium Chloride) 102.5 mls @ 100 mls/hr IVPB DAILY [facility] Last Admin: 09/08/17 10:26 Dose: 100 mls/hr Aztreonam 2 gm/ Sodium (Chloride) 100 mls @ 100 mls/hr IVPB Q8H [facility] Last Admin: 09/08/17 13:00 Dose: 100 mls/hr Vancomycin/Sodium Chloride (Vancocin) 1 gm in 200 mls @ 133 mls/hr IVPB Q12H [facility] Stop: 09/10/17 21:01 Last Admin: 09/08/17 08:29 Dose: 133 mls/hr Dextrose (Dextrose 5% In Water 1000 Ml) 1,000 mls @ 0 mls/hr IV .Q0M PRN; Protocol; Per Protocol PRN Reason: Hypoglycemia Protocol Fluconazole (Diflucan Iv 200 Mg/100 Ml Ns) 100 mls @ 100 mls/hr IVPB DAILY [facility] Last Admin: 09/08/17 11:37 Dose: 100 mls/hr Insulin Aspart (Novolog) 0 unit SC ACHS [facility] PRN Reason: Protocol Last Admin: 09/08/17 11:45 Dose: 2 unit Insulin Detemir (Levemir) 12 unit SC Q12 [facility] Levothyroxine Sodium (Synthroid) 125 mcg PO DAILY@0630 [facility] Last Admin: 09/08/17 05:47 Dose: 125 mcg Ondansetron HCl (Zofran Inj) 4 mg IVP Q6H PRN PRN Reason: Nausea/Vomiting Last Admin: 08/27/17 14:44 Dose: 4 mg Potassium Phos/Sodium Phos (Neutra-Phos) 1 pkt PO TID [facility] Last Admin: 09/08/17 13:27 Dose: 1 pkt Sucralfate (Carafate Oral Susp) 1 gm PO ACBHS [facility] Last Admin: 09/08/17 06:30 Dose: 1 gm Trimethoprim/Sulfamethoxazole (Bactrim Ds Tab) 1 tab PO MWF [facility] Last Admin: 09/08/17 08:31 Dose: 1 tab - Labs Labs: 09/08/17 06:26 09/08/17 06:26 PT 11.1 SECONDS (9.7-12.2) 09/08/17 06:26 INR 1.0 09/08/17 06:26 APTT 26 SECONDS (21-34) 09/08/17 06:26 Attending/Attestation - Attestation I have personally seen and examined this patient.: Yes I have fully participated in the care of the patient.: Yes I have reviewed all pertinent clinical information, including history, physical exam and plan: Yes Notes (Text): Medical attending: Patient was seen and examined by me, agree with the above note by medical tech. Family members were present in the room however we were very careful to not tell them about the patient's clinical condition. Since the last time I saw her she is awake and alert, she is able to ask if she could eat better food. She also knew where she was at an could tell us her correct birthday. She still has NG tube at this moment. She is also still on the IV Decadron as well. Her platelet count has now increased to 150 K. With regards to antibiotics she is currently on IV aztreonam, IV vancomycin, and Bactrim only on MWFs. She is also being continued on the HARRT therapy as well The previous weeks team consider a PEG tube to the patient's mental status however since it's improved now hopefully will see how she does tomorrow me with could take up NG tube if she is swallowing okay. There is pending a speech and swallow eval for tomorrow Thank you very much, Drew Valle
--- NOTE | 2017-09-08 07:38 | CP.PCM.PN ---
Subjective - Date & Time of Evaluation Date of Evaluation: 09/08/17 Time of Evaluation: 07:36 - Subjective Subjective: Ms. Morel was seen and examined at the bedside. She is more alert, responsive and able to follow commands. She denies any pain, headache, lightheadedness, numbness. There was no untoward events overnight. Objective - Vital Signs/Intake and Output Vital Signs (last 24 hours): Temp Pulse Resp BP Pulse Ox 98.2 F 82 20 166/92 H 96 09/08/17 04:10 09/08/17 04:10 09/08/17 04:10 09/08/17 04:10 09/08/17 00:58 Intake and Output: 09/08/17 09/08/17 06:59 18:59 Intake Total 2540 Output Total 1850 Balance 690 - Medications Medications: Current Medications Amlodipine Besylate (Norvasc) 5 mg NG DAILY [facility] Last Admin: 09/07/17 10:57 Dose: 5 mg Aspirin (Ecotrin) 81 mg PO DAILY [facility] Last Admin: 09/07/17 10:55 Dose: 81 mg Dexamethasone (Decadron Inj) 4 mg IVP Q6H [facility] Last Admin: 09/08/17 05:46 Dose: 4 mg Dextrose (Dextrose 50% Inj) 0 ml IV STAT PRN; Protocol PRN Reason: Hyglycemia Protocol Last Admin: 09/07/17 17:10 Dose: 50 ml Dextrose (Glutose 15) 0 gm PO ONCE PRN; Protocol PRN Reason: Hypoglycemia Protocol Efavirenz/Emtricitabine/Tenofovir (Atripla 600 Mg-200 Mg-300 Mg) 1 tab PO DAILY [facility] Last Admin: 09/07/17 10:56 Dose: 1 tab Famotidine (Pepcid) 20 mg PO DAILY [facility] Last Admin: 09/07/17 10:55 Dose: 20 mg Glucagon (Glucagen Diagnostic Kit) 0 mg IM STAT PRN; Protocol PRN Reason: Hypoglycemia Protocol Hydralazine HCl (Apresoline) 10 mg IVP Q6H PRN PRN Reason: Systolic Blood Pressure Last Admin: 09/05/17 08:53 Dose: 10 mg Valproate Sodium 250 mg/ (Sodium Chloride) 102.5 mls @ 100 mls/hr IVPB DAILY [facility] Last Admin: 09/07/17 10:53 Dose: 100 mls/hr Aztreonam 2 gm/ Sodium (Chloride) 100 mls @ 100 mls/hr IVPB Q8H [facility] Last Admin: 09/08/17 03:54 Dose: 100 mls/hr Vancomycin/Sodium Chloride (Vancocin) 1 gm in 200 mls @ 133 mls/hr IVPB Q12H [facility] Stop: 09/10/17 21:01 Last Admin: 09/07/17 20:01 Dose: 133 mls/hr Dextrose (Dextrose 5% In Water 1000 Ml) 1,000 mls @ 0 mls/hr IV .Q0M PRN; Protocol; Per Protocol PRN Reason: Hypoglycemia Protocol Fluconazole (Diflucan Iv 200 Mg/100 Ml Ns) 100 mls @ 100 mls/hr IVPB DAILY [facility] Insulin Aspart (Novolog) 0 unit SC ACHS [facility] PRN Reason: Protocol Last Admin: 09/07/17 22:06 Dose: Not Given Insulin Detemir (Levemir) 8 unit SC Q12 [facility] Last Admin: 09/07/17 22:05 Dose: 8 unit Levothyroxine Sodium (Synthroid) 125 mcg PO DAILY@0630 [facility] Last Admin: 09/08/17 05:47 Dose: 125 mcg Ondansetron HCl (Zofran Inj) 4 mg IVP Q6H PRN PRN Reason: Nausea/Vomiting Last Admin: 08/27/17 14:44 Dose: 4 mg Potassium Phos/Sodium Phos (Neutra-Phos) 1 pkt PO TID [facility] Last Admin: 09/07/17 17:49 Dose: 1 pkt Sucralfate (Carafate Oral Susp) 1 gm PO ACBHS [facility] Last Admin: 09/08/17 06:30 Dose: 1 gm Trimethoprim/Sulfamethoxazole (Bactrim Ds Tab) 1 tab PO MWF [facility] Last Admin: 09/05/17 10:10 Dose: 1 tab - Labs Labs: 09/08/17 06:26 09/07/17 08:22 PT 11.1 SECONDS (9.7-12.2) 09/08/17 06:26 INR 1.0 09/08/17 06:26 APTT 26 SECONDS (21-34) 09/08/17 06:26 - Constitutional Appears: Cachectic - Head Exam Head Exam: ATRAUMATIC, NORMAL INSPECTION, NORMOCEPHALIC - Neurological Exam Neurological Exam: Alert, Awake, CN II-XII Intact, Oriented x3 Neuro motor strength exam: Left Upper Extremity: 5, Right Upper Extremity: 5, Left Lower Extremity: 5, Right Lower Extremity: 5 Additional comments: She is able to follow commands such as raising her extremities, finger accommodation, and finger to nose test. Sensation remains intact. Assessment and Plan (1) Encephalopathy acute Assessment & Plan: Case discussed with Dr. Denney, Continue all current medical, physical, and occupational therapies. Recommend LP for JAGUAR virus testing and her current platelet level is 154. Status: Acute
--- NOTE | 2017-09-08 07:40 | CP.PCM.PN ---
<Marilia Deras - Last Filed: 09/08/17 10:15> Subjective - Date & Time of Evaluation Date of Evaluation: 09/08/17 Time of Evaluation: 06:45 - Subjective Subjective: GI Fellow PGY4 Progress NOte Pt seen and evaluated at beside, pt says hi and good morning but is not able to answer any further questions or follow commands. Pt seems to moan and asked if she is having pain is unable to communicate appropriately. Pt tolerating TF Glucerna at 35cc/hr. ROS: A 12pt ROS was obtained and was negative except as above. Objective - Vital Signs/Intake and Output Vital Signs (last 24 hours): Temp Pulse Resp BP Pulse Ox 98.2 F 82 20 166/92 H 96 09/08/17 04:10 09/08/17 04:10 09/08/17 04:10 09/08/17 04:10 09/08/17 00:58 Intake and Output: 09/08/17 09/08/17 06:59 18:59 Intake Total 2540 Output Total 1850 Balance 690 - Medications Medications: Current Medications Amlodipine Besylate (Norvasc) 5 mg NG DAILY [facility] Last Admin: 09/07/17 10:57 Dose: 5 mg Aspirin (Ecotrin) 81 mg PO DAILY [facility] Last Admin: 09/07/17 10:55 Dose: 81 mg Dexamethasone (Decadron Inj) 4 mg IVP Q6H [facility] Last Admin: 09/08/17 05:46 Dose: 4 mg Dextrose (Dextrose 50% Inj) 0 ml IV STAT PRN; Protocol PRN Reason: Hyglycemia Protocol Last Admin: 09/07/17 17:10 Dose: 50 ml Dextrose (Glutose 15) 0 gm PO ONCE PRN; Protocol PRN Reason: Hypoglycemia Protocol Efavirenz/Emtricitabine/Tenofovir (Atripla 600 Mg-200 Mg-300 Mg) 1 tab PO DAILY [facility] Last Admin: 09/07/17 10:56 Dose: 1 tab Famotidine (Pepcid) 20 mg PO DAILY [facility] Last Admin: 09/07/17 10:55 Dose: 20 mg Glucagon (Glucagen Diagnostic Kit) 0 mg IM STAT PRN; Protocol PRN Reason: Hypoglycemia Protocol Hydralazine HCl (Apresoline) 10 mg IVP Q6H PRN PRN Reason: Systolic Blood Pressure Last Admin: 09/05/17 08:53 Dose: 10 mg Valproate Sodium 250 mg/ (Sodium Chloride) 102.5 mls @ 100 mls/hr IVPB DAILY [facility] Last Admin: 09/07/17 10:53 Dose: 100 mls/hr Aztreonam 2 gm/ Sodium (Chloride) 100 mls @ 100 mls/hr IVPB Q8H [facility] Last Admin: 09/08/17 03:54 Dose: 100 mls/hr Vancomycin/Sodium Chloride (Vancocin) 1 gm in 200 mls @ 133 mls/hr IVPB Q12H [facility] Stop: 09/10/17 21:01 Last Admin: 09/07/17 20:01 Dose: 133 mls/hr Dextrose (Dextrose 5% In Water 1000 Ml) 1,000 mls @ 0 mls/hr IV .Q0M PRN; Protocol; Per Protocol PRN Reason: Hypoglycemia Protocol Fluconazole (Diflucan Iv 200 Mg/100 Ml Ns) 100 mls @ 100 mls/hr IVPB DAILY [facility] Insulin Aspart (Novolog) 0 unit SC ACHS [facility] PRN Reason: Protocol Last Admin: 09/07/17 22:06 Dose: Not Given Insulin Detemir (Levemir) 8 unit SC Q12 [facility] Last Admin: 09/07/17 22:05 Dose: 8 unit Levothyroxine Sodium (Synthroid) 125 mcg PO DAILY@0630 [facility] Last Admin: 09/08/17 05:47 Dose: 125 mcg Ondansetron HCl (Zofran Inj) 4 mg IVP Q6H PRN PRN Reason: Nausea/Vomiting Last Admin: 08/27/17 14:44 Dose: 4 mg Potassium Phos/Sodium Phos (Neutra-Phos) 1 pkt PO TID [facility] Last Admin: 09/07/17 17:49 Dose: 1 pkt Sucralfate (Carafate Oral Susp) 1 gm PO ACBHS [facility] Last Admin: 09/08/17 06:30 Dose: 1 gm Trimethoprim/Sulfamethoxazole (Bactrim Ds Tab) 1 tab PO MWF [facility] Last Admin: 09/05/17 10:10 Dose: 1 tab - Labs Labs: 09/08/17 06:26 09/07/17 08:22 PT 11.1 SECONDS (9.7-12.2) 09/08/17 06:26 INR 1.0 09/08/17 06:26 APTT 26 SECONDS (21-34) 09/08/17 06:26 - Constitutional Appears: Agitated, Chronically Ill - Head Exam Head Exam: ATRAUMATIC, NORMAL INSPECTION, NORMOCEPHALIC - Eye Exam Eye Exam: EOMI, Normal appearance, PERRL Pupil Exam: PERRL - ENT Exam ENT Exam: Mucous Membranes Moist, Normal Exam Additional comments: NGT - Neck Exam Neck Exam: Full ROM, Normal Inspection - Respiratory Exam Respiratory Exam: Clear to Ausculation Bilateral - Cardiovascular Exam Cardiovascular Exam: RRR, +S1, +S2 - GI/Abdominal Exam GI & Abdominal Exam: Soft, Normal Bowel Sounds. absent: Guarding, Tenderness, Organomegaly - Rectal Exam Rectal Exam: Deferred - Extremities Exam Extremities Exam: Normal Inspection - Back Exam Back Exam: NORMAL INSPECTION - Neurological Exam Neurological Exam: Altered, Awake - Psychiatric Exam Psychiatric exam: Anxious - Skin Skin Exam: Dry, Intact, Normal Color, Warm Assessment and Plan - Assessment and Plan (Free Text) Assessment: This is a 57F w/ hx of HTN, DM, hypothyroid, HIV on Atripla, LOLIS s/p HD, admitted with dysphagia, seizures, and AM, with thrombocytopenia. GI was consulted for PEG evaluation. Pt is currently receiving tube feeds via NGT. 1. PEG Evaluation for dysphagia and nutritional support 2. AMS-etiology unknown, plan for LP today 3. AIDS-immunocompromised 4. Leukocytosis-r/o infection/bacteremia? Plan: -Continue supportive care with tube feeds vis NGT -Unable to asses dysphagia due to AMS, does not follow commands, aspiration risk -Etiology of encephalopathy unclear-plan for LP today -Continue PPI -Continue treatment for AIDs -IV abx per ID, unclear source of infection -Discuss with ID about PEG placement in setting of unclear active infection -Will discuss with family about goals of care and consent for possible PEG <Sanjay Petty MD - Last Filed: 09/08/17 13:07> Objective - Vital Signs/Intake and Output Vital Signs (last 24 hours): Temp Pulse Resp BP Pulse Ox 97.6 F 68 18 157/85 H 100 09/08/17 07:35 09/08/17 07:35 09/08/17 07:35 09/08/17 07:35 09/08/17 07:35 Intake and Output: 09/08/17 09/08/17 06:59 18:59 Intake Total 2540 Output Total 1850 Balance 690 - Medications Medications: Current Medications Amlodipine Besylate (Norvasc) 5 mg NG DAILY [facility] Last Admin: 09/08/17 10:31 Dose: 5 mg Aspirin (Ecotrin) 81 mg PO DAILY [facility] Last Admin: 09/08/17 10:31 Dose: 81 mg Dexamethasone (Decadron Inj) 4 mg IVP Q6H [facility] Last Admin: 09/08/17 12:10 Dose: 4 mg Dextrose (Dextrose 50% Inj) 0 ml IV STAT PRN; Protocol PRN Reason: Hyglycemia Protocol Last Admin: 09/07/17 17:10 Dose: 50 ml Dextrose (Glutose 15) 0 gm PO ONCE PRN; Protocol PRN Reason: Hypoglycemia Protocol Efavirenz/Emtricitabine/Tenofovir (Atripla 600 Mg-200 Mg-300 Mg) 1 tab PO DAILY [facility] Last Admin: 09/08/17 10:31 Dose: 1 tab Famotidine (Pepcid) 20 mg PO DAILY [facility] Last Admin: 09/08/17 10:31 Dose: 20 mg Glucagon (Glucagen Diagnostic Kit) 0 mg IM STAT PRN; Protocol PRN Reason: Hypoglycemia Protocol Hydralazine HCl (Apresoline) 10 mg IVP Q6H PRN PRN Reason: Systolic Blood Pressure Last Admin: 09/05/17 08:53 Dose: 10 mg Valproate Sodium 250 mg/ (Sodium Chloride) 102.5 mls @ 100 mls/hr IVPB DAILY [facility] Last Admin: 09/08/17 10:26 Dose: 100 mls/hr Aztreonam 2 gm/ Sodium (Chloride) 100 mls @ 100 mls/hr IVPB Q8H [facility] Last Admin: 09/08/17 03:54 Dose: 100 mls/hr Vancomycin/Sodium Chloride (Vancocin) 1 gm in 200 mls @ 133 mls/hr IVPB Q12H [facility] Stop: 09/10/17 21:01 Last Admin: 09/08/17 08:29 Dose: 133 mls/hr Dextrose (Dextrose 5% In Water 1000 Ml) 1,000 mls @ 0 mls/hr IV .Q0M PRN; Protocol; Per Protocol PRN Reason: Hypoglycemia Protocol Fluconazole (Diflucan Iv 200 Mg/100 Ml Ns) 100 mls @ 100 mls/hr IVPB DAILY [facility] Last Admin: 09/08/17 11:37 Dose: 100 mls/hr Insulin Aspart (Novolog) 0 unit SC ACHS [facility] PRN Reason: Protocol Last Admin: 09/08/17 08:08 Dose: Not Given Insulin Detemir (Levemir) 8 unit SC Q12 [facility] Last Admin: 09/08/17 10:36 Dose: 8 unit Levothyroxine Sodium (Synthroid) 125 mcg PO DAILY@0630 [facility] Last Admin: 09/08/17 05:47 Dose: 125 mcg Ondansetron HCl (Zofran Inj) 4 mg IVP Q6H PRN PRN Reason: Nausea/Vomiting Last Admin: 08/27/17 14:44 Dose: 4 mg Potassium Phos/Sodium Phos (Neutra-Phos) 1 pkt PO TID [facility] Last Admin: 09/08/17 10:31 Dose: 1 pkt Sucralfate (Carafate Oral Susp) 1 gm PO ACBHS [facility] Last Admin: 09/08/17 06:30 Dose: 1 gm Trimethoprim/Sulfamethoxazole (Bactrim Ds Tab) 1 tab PO MWF [facility] Last Admin: 09/08/17 08:31 Dose: 1 tab - Labs Labs: 09/08/17 06:26 09/08/17 06:26 PT 11.1 SECONDS (9.7-12.2) 09/08/17 06:26 INR 1.0 09/08/17 06:26 APTT 26 SECONDS (21-34) 09/08/17 06:26 Attending/Attestation - Attestation I have personally seen and examined this patient.: Yes I have fully participated in the care of the patient.: Yes I have reviewed all pertinent clinical information, including history, physical exam and plan: Yes Notes (Text): 09/08/17 13:01 patient seen with GI fellow on rounds this am. This is a 57 year old female with h/o HTN, DM, HIV/AIDS, Renal failure on HD with altered mental status with more lucid today. Oriented to place and time and self and answering questions appropriately. On schedule for IR guided LP. GI was consulted for PEG tube placement due to AMS but her mental status has improved significantly. Should continue care as per neurology and ID and continue NGT feeds for now. No urgent indication for invasive luminal G tube placement. There has been inconsistencies regarding NOK and decision making family member. If will need G tube in future, the team should establish NOK. Will sign off now. Please reconsult prn
[2017-09-08 07:47] LABS: CHLORIDE 100 mmol/L (98-107)
[2017-09-08 07:48] LABS: SODIUM 130 mmol/L (132-148)
[2017-09-08 07:49] LABS: GFR AFRICAN-AMERICAN > 60
[2017-09-08 07:50] LABS: ALB/GLOB RATIO 0.9 (1.0-2.1); ALKALINE PHOSPHATASE 107 U/L (38-126); ALT/SGPT 43 U/L (9-52); AST/SGOT 39 U/L (14-36); BILIRUBIN,TOTAL 0.4 mg/dL (0.2-1.3); BLOOD UREA NITROGEN 35 mg/dL (7-17); CALCIUM 8.5 mg/dl (8.6-10.4); CARBON DIOXIDE 21 mmol/L (22-30); GLUCOSE,RANDOM 212 mg/dL (65-105); PHOSPHOROUS 3.6 mg/dL (2.5-4.5); TOTAL PROTEIN 6.2 g/dL (6.3-8.3)
[2017-09-08 07:51] LABS: MAGNESIUM 1.8 mg/dL (1.6-2.3)
[2017-09-08 08:07] LABS: MYELOCYTE 2 % (0-0); NEUTROPHIL 81 % (50-75); TOTAL CELLS COUNTED 100
[2017-09-08] MEDS: (Novolog) Insulin Aspart, Recombinant 100 u/ml 10 ml vial SC SCH ×4 (08:08→21:52)
[2017-09-08] MEDS: Vancomycin 1 gm/NS 200 ml 1 GM/200 ML BAG IVPB SCH ×2 (08:29→21:18)
[2017-09-08] MEDS: Tmp-Smz 800 mg-160 mg DS Tab PO SCH (08:31)
[2017-09-08] MEDS: Valproate 250 MG in Sodium Chloride 0.9% 100 ML IVPB SCH (10:26)
[2017-09-08] MEDS: Potassium & Sodium Phosphate PO SCH ×3 (10:31→17:19)
[2017-09-08] MEDS: Efavirenz/Emtricitabine/Teno 1 TAB PO SCH (10:31)
[2017-09-08] MEDS: Insulin Detemir 100 units/ml Vial (Levemir) SC SCH ×2 (10:36→21:53)
[2017-09-08] MEDS: Fluconazole IV 200mg/100 ml NS 100 ML IVPB SCH (11:37)
--- NOTE | 2017-09-08 11:40 | CP.PCM.PN ---
Subjective - Date & Time of Evaluation Date of Evaluation: 09/08/17 Time of Evaluation: 06:00 - Subjective Subjective: more awake nad afeb Objective - Vital Signs/Intake and Output Vital Signs (last 24 hours): Temp Pulse Resp BP Pulse Ox 97.6 F 68 18 157/85 H 100 09/08/17 07:35 09/08/17 07:35 09/08/17 07:35 09/08/17 07:35 09/08/17 07:35 Intake and Output: 09/08/17 09/08/17 06:59 18:59 Intake Total 2540 Output Total 1850 Balance 690 - Medications Medications: Current Medications Amlodipine Besylate (Norvasc) 5 mg NG DAILY [facility] Last Admin: 09/08/17 10:31 Dose: 5 mg Aspirin (Ecotrin) 81 mg PO DAILY [facility] Last Admin: 09/08/17 10:31 Dose: 81 mg Dexamethasone (Decadron Inj) 4 mg IVP Q6H [facility] Last Admin: 09/08/17 05:46 Dose: 4 mg Dextrose (Dextrose 50% Inj) 0 ml IV STAT PRN; Protocol PRN Reason: Hyglycemia Protocol Last Admin: 09/07/17 17:10 Dose: 50 ml Dextrose (Glutose 15) 0 gm PO ONCE PRN; Protocol PRN Reason: Hypoglycemia Protocol Efavirenz/Emtricitabine/Tenofovir (Atripla 600 Mg-200 Mg-300 Mg) 1 tab PO DAILY [facility] Last Admin: 09/08/17 10:31 Dose: 1 tab Famotidine (Pepcid) 20 mg PO DAILY [facility] Last Admin: 09/08/17 10:31 Dose: 20 mg Glucagon (Glucagen Diagnostic Kit) 0 mg IM STAT PRN; Protocol PRN Reason: Hypoglycemia Protocol Hydralazine HCl (Apresoline) 10 mg IVP Q6H PRN PRN Reason: Systolic Blood Pressure Last Admin: 09/05/17 08:53 Dose: 10 mg Valproate Sodium 250 mg/ (Sodium Chloride) 102.5 mls @ 100 mls/hr IVPB DAILY [facility] Last Admin: 09/08/17 10:26 Dose: 100 mls/hr Aztreonam 2 gm/ Sodium (Chloride) 100 mls @ 100 mls/hr IVPB Q8H [facility] Last Admin: 09/08/17 03:54 Dose: 100 mls/hr Vancomycin/Sodium Chloride (Vancocin) 1 gm in 200 mls @ 133 mls/hr IVPB Q12H [facility] Stop: 09/10/17 21:01 Last Admin: 09/08/17 08:29 Dose: 133 mls/hr Dextrose (Dextrose 5% In Water 1000 Ml) 1,000 mls @ 0 mls/hr IV .Q0M PRN; Protocol; Per Protocol PRN Reason: Hypoglycemia Protocol Fluconazole (Diflucan Iv 200 Mg/100 Ml Ns) 100 mls @ 100 mls/hr IVPB DAILY [facility] Last Admin: 09/08/17 11:37 Dose: 100 mls/hr Insulin Aspart (Novolog) 0 unit SC ACHS [facility] PRN Reason: Protocol Last Admin: 09/08/17 08:08 Dose: Not Given Insulin Detemir (Levemir) 8 unit SC Q12 [facility] Last Admin: 09/08/17 10:36 Dose: 8 unit Levothyroxine Sodium (Synthroid) 125 mcg PO DAILY@0630 [facility] Last Admin: 09/08/17 05:47 Dose: 125 mcg Ondansetron HCl (Zofran Inj) 4 mg IVP Q6H PRN PRN Reason: Nausea/Vomiting Last Admin: 08/27/17 14:44 Dose: 4 mg Potassium Phos/Sodium Phos (Neutra-Phos) 1 pkt PO TID [facility] Last Admin: 09/08/17 10:31 Dose: 1 pkt Sucralfate (Carafate Oral Susp) 1 gm PO ACBHS [facility] Last Admin: 09/08/17 06:30 Dose: 1 gm Trimethoprim/Sulfamethoxazole (Bactrim Ds Tab) 1 tab PO MWF [facility] Last Admin: 09/08/17 08:31 Dose: 1 tab - Labs Labs: 09/08/17 06:26 09/08/17 06:26 PT 11.1 SECONDS (9.7-12.2) 09/08/17 06:26 INR 1.0 09/08/17 06:26 APTT 26 SECONDS (21-34) 09/08/17 06:26 - Constitutional Appears: Non-toxic, Chronically Ill - Head Exam Head Exam: NORMOCEPHALIC - Eye Exam Eye Exam: absent: Scleral icterus - ENT Exam ENT Exam: Mucous Membranes Dry - Neck Exam Neck Exam: absent: Lymphadenopathy - Respiratory Exam Respiratory Exam: Decreased Breath Sounds - Cardiovascular Exam Cardiovascular Exam: REGULAR RHYTHM - GI/Abdominal Exam GI & Abdominal Exam: Distended, Soft Assessment and Plan (1) HIV (human immunodeficiency virus infection) Status: Acute (2) HIV (human immunodeficiency virus infection) Status: Acute (3) Encephalopathy acute Status: Acute (4) Leukocytosis Status: Acute
--- NOTE | 2017-09-08 22:01 | PN ---
ENDO FOLLOWUP NOTE LOCATION: In room 654. SUBJECTIVE: This is a 57-year-old female with recent uncontrolled type 1 insulin-dependent diabetes, currently on IV steroid therapy and is now being followed closely for metabolic management. She has some episodic bouts of symptomatic hypoglycemia and today has supervening hyperglycemic acceleration as noted there of. Her glucose values have ranged from 245 to 318 mg/dL. So at this time, we will increase and titrate once again her Levemir to 12 units subcu every 12 hours as ordered. We will titrate incrementally as indicated to optimize metabolic control. We will obtain serum chemistries and supplement accordingly as needed. We will follow with you. Nesha Donaldson MD
[2017-09-09] MEDS: Dexamethasone 4 mg/1 ml IVP SCH ×4 (00:37→18:29)
[2017-09-09] MEDS: Aztreonam 2 GM in Sodium Chloride 0.9% 100 ML IVPB SCH ×3 (04:13→20:30)
[2017-09-09] MEDS: Levothyroxine 125 MCG TAB PO SCH (06:34)
[2017-09-09] MEDS: Sucralfate 1 gm/10 ml Oral Susp UD PO SCH ×2 (06:34→21:37)
[2017-09-09 07:36] LABS: BASO # 0.1 K/uL (0.0-0.2); BASO % 0.5 % (0.0-2.0); HEMATOCRIT 27.3 % (34.0-47.0); LYMPH # 0.9 K/uL (1.0-4.3); LYMPH % 5.5 % (20.0-40.0); MEAN CELL VOLUME 85.5 fL (81.0-99.0); MEAN CORPUSCULAR HEMOGLOBIN 29.5 pg (27.0-31.0); MEAN CORPUSCULAR HGB CONC 34.5 g/dL (33.0-37.0); MEAN PLATELET VOLUME 8.5 fL (7.2-11.7); MONO # 1.3 K/uL (0.0-0.8); MONO % 7.7 % (0.0-10.0); PLATELET COUNT 208 K/uL (130-400); RED CELL DISTRIBUTION WIDTH 14.5 % (11.5-14.5); WHITE BLOOD COUNT 16.7 K/uL (4.8-10.8)
--- NOTE | 2017-09-09 07:38 | CP.PCM.PN ---
Subjective - Date & Time of Evaluation Date of Evaluation: 09/09/17 Time of Evaluation: 07:31 - Subjective Subjective: Ms. Morel was seen and examined at the bedside. She is alert, oriented in all spheres. She denies any headache, dizziness, lightheadedness, nausea, or vomiting. She remains with NGT for nutrition purpose, with plan to remove NGT and do swallowing evaluation.She has a right arm mitten for patient safety. There is no untoward events overnight. Objective - Vital Signs/Intake and Output Vital Signs (last 24 hours): Temp Pulse Resp BP Pulse Ox 97.7 F 89 20 181/90 H 100 09/08/17 23:10 09/09/17 04:04 09/08/17 23:10 09/09/17 04:04 09/08/17 23:10 Intake and Output: 09/09/17 09/09/17 06:59 18:59 Intake Total 2710 Output Total 2401 Balance 309 - Medications Medications: Current Medications Amlodipine Besylate (Norvasc) 5 mg NG DAILY [facility] Last Admin: 09/08/17 10:31 Dose: 5 mg Aspirin (Ecotrin) 81 mg PO DAILY [facility] Last Admin: 09/08/17 10:31 Dose: 81 mg Dexamethasone (Decadron Inj) 4 mg IVP Q6H [facility] Last Admin: 09/09/17 06:34 Dose: 4 mg Dextrose (Dextrose 50% Inj) 0 ml IV STAT PRN; Protocol PRN Reason: Hyglycemia Protocol Last Admin: 09/07/17 17:10 Dose: 50 ml Dextrose (Glutose 15) 0 gm PO ONCE PRN; Protocol PRN Reason: Hypoglycemia Protocol Efavirenz/Emtricitabine/Tenofovir (Atripla 600 Mg-200 Mg-300 Mg) 1 tab PO DAILY [facility] Last Admin: 09/08/17 10:31 Dose: 1 tab Famotidine (Pepcid) 20 mg PO DAILY [facility] Last Admin: 09/08/17 10:31 Dose: 20 mg Glucagon (Glucagen Diagnostic Kit) 0 mg IM STAT PRN; Protocol PRN Reason: Hypoglycemia Protocol Hydralazine HCl (Apresoline) 10 mg IVP Q6H PRN PRN Reason: Systolic Blood Pressure Last Admin: 09/09/17 04:13 Dose: 10 mg Valproate Sodium 250 mg/ (Sodium Chloride) 102.5 mls @ 100 mls/hr IVPB DAILY [facility] Last Admin: 09/08/17 10:26 Dose: 100 mls/hr Aztreonam 2 gm/ Sodium (Chloride) 100 mls @ 100 mls/hr IVPB Q8H [facility] Last Admin: 09/09/17 04:13 Dose: 100 mls/hr Vancomycin/Sodium Chloride (Vancocin) 1 gm in 200 mls @ 133 mls/hr IVPB Q12H [facility] Stop: 09/10/17 21:01 Last Admin: 09/08/17 21:18 Dose: 133 mls/hr Dextrose (Dextrose 5% In Water 1000 Ml) 1,000 mls @ 0 mls/hr IV .Q0M PRN; Protocol; Per Protocol PRN Reason: Hypoglycemia Protocol Fluconazole (Diflucan Iv 200 Mg/100 Ml Ns) 100 mls @ 100 mls/hr IVPB DAILY [facility] Last Admin: 09/08/17 11:37 Dose: 100 mls/hr Insulin Aspart (Novolog) 0 unit SC ACHS [facility] PRN Reason: Protocol Last Admin: 09/08/17 21:52 Dose: Not Given Insulin Detemir (Levemir) 12 unit SC Q12 [facility] Last Admin: 09/08/17 21:53 Dose: 12 unit Levothyroxine Sodium (Synthroid) 125 mcg PO DAILY@0630 [facility] Last Admin: 09/09/17 06:34 Dose: 125 mcg Ondansetron HCl (Zofran Inj) 4 mg IVP Q6H PRN PRN Reason: Nausea/Vomiting Last Admin: 08/27/17 14:44 Dose: 4 mg Potassium Phos/Sodium Phos (Neutra-Phos) 1 pkt PO TID [facility] Last Admin: 09/08/17 17:19 Dose: 1 pkt Sucralfate (Carafate Oral Susp) 1 gm PO ACBHS [facility] Last Admin: 09/09/17 06:34 Dose: 1 gm Trimethoprim/Sulfamethoxazole (Bactrim Ds Tab) 1 tab PO MWF [facility] Last Admin: 09/08/17 08:31 Dose: 1 tab - Labs Labs: 09/08/17 06:26 09/08/17 06:26 PT 11.1 SECONDS (9.7-12.2) 09/08/17 06:26 INR 1.0 09/08/17 06:26 APTT 26 SECONDS (21-34) 09/08/17 06:26 - Constitutional Appears: No Acute Distress, Cachectic - Head Exam Head Exam: ATRAUMATIC - Neurological Exam Neurological Exam: Alert, Awake, Oriented x3 Neuro motor strength exam: Left Upper Extremity: 5, Right Upper Extremity: 5, Left Lower Extremity: 5, Right Lower Extremity: 5 Additional comments: Neurological improved from previous examination. She is able to follow commands. Assessment and Plan (1) Encephalopathy acute Assessment & Plan: Case discussed with Dr. Denney, recommends repeat MRI of the brain pending LP procedure. Continue all current medical, physical, occupational, and speech therapies. Status: Acute
[2017-09-09] MEDS: (Novolog) Insulin Aspart, Recombinant 100 u/ml 10 ml vial SC SCH ×4 (07:42→21:48)
[2017-09-09 07:58] LABS: CHLORIDE 100 mmol/L (98-107)
[2017-09-09 07:59] LABS: SODIUM 128 mmol/L (132-148)
[2017-09-09] MEDS: Vancomycin 1 gm/NS 200 ml 1 GM/200 ML BAG IVPB SCH ×2 (08:00→08:28)
[2017-09-09 08:02] LABS: ALB/GLOB RATIO 0.9 (1.0-2.1); ALKALINE PHOSPHATASE 135 U/L (38-126); ALT/SGPT 83 U/L (9-52); AST/SGOT 65 U/L (14-36); BILIRUBIN,TOTAL 0.5 mg/dL (0.2-1.3); BLOOD UREA NITROGEN 39 mg/dL (7-17); CARBON DIOXIDE 19 mmol/L (22-30); GFR AFRICAN-AMERICAN > 60; GLUCOSE,RANDOM 303 mg/dL (65-105); TOTAL PROTEIN 6.4 g/dL (6.3-8.3)
[2017-09-09 08:03] LABS: CALCIUM 8.7 mg/dl (8.6-10.4); MAGNESIUM 1.9 mg/dL (1.6-2.3); PHOSPHOROUS 3.8 mg/dL (2.5-4.5)
--- NOTE | 2017-09-09 08:27 | CP.PCM.PN ---
<Rupesh Sahu - Last Filed: 09/09/17 11:35> Subjective - Date & Time of Evaluation Date of Evaluation: 09/09/17 Time of Evaluation: 08:18 - Subjective Subjective: PGY1 Medicine Note for Dr. Valle Patient seen and examined this morning. Patient is awake, alert and oriented. She states that she is in no pain. Patient states that she is really thirsty/ hungry and wants to eat. Patient was excited to her that her NG tube was being pulled out today. She will have a swallow eval later this today. Denies f/c, n/v , sob, abd pain, cp or headaches. Objective - Vital Signs/Intake and Output Vital Signs (last 24 hours): Temp Pulse Resp BP Pulse Ox 98.2 F 99 H 20 148/75 100 09/09/17 07:20 09/09/17 07:20 09/09/17 07:20 09/09/17 07:20 09/09/17 07:20 Intake and Output: 09/09/17 09/09/17 06:59 18:59 Intake Total 2710 Output Total 2401 Balance 309 - Medications Medications: Current Medications Amlodipine Besylate (Norvasc) 5 mg NG DAILY [facility] Last Admin: 09/08/17 10:31 Dose: 5 mg Aspirin (Ecotrin) 81 mg PO DAILY [facility] Last Admin: 09/08/17 10:31 Dose: 81 mg Dexamethasone (Decadron Inj) 4 mg IVP Q6H [facility] Last Admin: 09/09/17 06:34 Dose: 4 mg Dextrose (Dextrose 50% Inj) 0 ml IV STAT PRN; Protocol PRN Reason: Hyglycemia Protocol Last Admin: 09/07/17 17:10 Dose: 50 ml Dextrose (Glutose 15) 0 gm PO ONCE PRN; Protocol PRN Reason: Hypoglycemia Protocol Efavirenz/Emtricitabine/Tenofovir (Atripla 600 Mg-200 Mg-300 Mg) 1 tab PO DAILY [facility] Last Admin: 09/08/17 10:31 Dose: 1 tab Famotidine (Pepcid) 20 mg PO DAILY [facility] Last Admin: 09/08/17 10:31 Dose: 20 mg Glucagon (Glucagen Diagnostic Kit) 0 mg IM STAT PRN; Protocol PRN Reason: Hypoglycemia Protocol Hydralazine HCl (Apresoline) 10 mg IVP Q6H PRN PRN Reason: Systolic Blood Pressure Last Admin: 09/09/17 04:13 Dose: 10 mg Valproate Sodium 250 mg/ (Sodium Chloride) 102.5 mls @ 100 mls/hr IVPB DAILY [facility] Last Admin: 09/08/17 10:26 Dose: 100 mls/hr Aztreonam 2 gm/ Sodium (Chloride) 100 mls @ 100 mls/hr IVPB Q8H [facility] Last Admin: 09/09/17 04:13 Dose: 100 mls/hr Vancomycin/Sodium Chloride (Vancocin) 1 gm in 200 mls @ 133 mls/hr IVPB Q12H [facility] Stop: 09/10/17 21:01 Last Admin: 09/09/17 08:00 Dose: 133 mls/hr Dextrose (Dextrose 5% In Water 1000 Ml) 1,000 mls @ 0 mls/hr IV .Q0M PRN; Protocol; Per Protocol PRN Reason: Hypoglycemia Protocol Fluconazole (Diflucan Iv 200 Mg/100 Ml Ns) 100 mls @ 100 mls/hr IVPB DAILY [facility] Last Admin: 09/08/17 11:37 Dose: 100 mls/hr Insulin Aspart (Novolog) 0 unit SC ACHS [facility] PRN Reason: Protocol Last Admin: 09/09/17 07:42 Dose: 1 unit Insulin Detemir (Levemir) 12 unit SC Q12 [facility] Last Admin: 09/08/17 21:53 Dose: 12 unit Levothyroxine Sodium (Synthroid) 125 mcg PO DAILY@0630 [facility] Last Admin: 09/09/17 06:34 Dose: 125 mcg Ondansetron HCl (Zofran Inj) 4 mg IVP Q6H PRN PRN Reason: Nausea/Vomiting Last Admin: 08/27/17 14:44 Dose: 4 mg Potassium Phos/Sodium Phos (Neutra-Phos) 1 pkt PO TID [facility] Last Admin: 09/08/17 17:19 Dose: 1 pkt Sucralfate (Carafate Oral Susp) 1 gm PO ACBHS [facility] Last Admin: 09/09/17 06:34 Dose: 1 gm Trimethoprim/Sulfamethoxazole (Bactrim Ds Tab) 1 tab PO MWF [facility] Last Admin: 09/08/17 08:31 Dose: 1 tab - Labs Labs: 09/09/17 07:27 09/09/17 07:27 PT 11.1 SECONDS (9.7-12.2) 09/08/17 06:26 INR 1.0 09/08/17 06:26 APTT 26 SECONDS (21-34) 09/08/17 06:26 - Constitutional Appears: Non-toxic, No Acute Distress, Chronically Ill - Head Exam Head Exam: ATRAUMATIC, NORMOCEPHALIC - Eye Exam Eye Exam: EOMI, Normal appearance, PERRL. absent: Scleral icterus - ENT Exam ENT Exam: Mucous Membranes Dry - Respiratory Exam Respiratory Exam: Clear to Ausculation Bilateral, NORMAL BREATHING PATTERN. absent: Accessory Muscle Use, Rales, Wheezes, Respiratory Distress - Cardiovascular Exam Cardiovascular Exam: REGULAR RHYTHM, +S1, +S2 - GI/Abdominal Exam GI & Abdominal Exam: Soft, Normal Bowel Sounds. absent: Distended, Firm, Guarding, Rigid, Tenderness - Extremities Exam Extremities Exam: Normal Capillary Refill, Normal Inspection. absent: Calf Tenderness, Pedal Edema, Tenderness Additional comments: scds in place - Neurological Exam Neurological Exam: Alert, Awake, Oriented x3 - Psychiatric Exam Psychiatric exam: Flat Affect, Normal Mood Additional comments: very lethargic - Skin Skin Exam: Dry, Normal Color, Warm Assessment and Plan - Assessment and Plan (Free Text) Plan: AIDS, acute encephalopathy 09/09: Pt is AAOx3 today and is much more alert today. Her NG tube was pulled this morning and swallow evaluation was done this morning. Patient showed no signs of aspiration (cough/throat clearing) and was cleared for a regular diet. She is scheduled for a brain MRI this morning to re-evaluate for PML. Patient was not given any sedative for MRI per Dr. Denney because we do not want to negatively affect her cognitive function. Depending on the results, Dr. Denney will determine if a LP is necessary or not. PEG tube placement is still on hold as patient's mental status appears to be improving and may be able to feed herself. 09/08: Per Neuro note, it appears LP is tentatively scheduled for tomorrow, sunday 09/09. Platelet count is 154 today. Patient is more alert and awake, answering questions today. Patient still appears very lethargic and weak. Per GI , PEG tube placement will remain pending for further observation of hospital course. GI would like ID eval for potential infectious complications of PEG tube placement. 09/06: Spoke to Dr. Denney. Given that her platelets have risen, we ordered an LP to be done under fluoro for Friday. 09/05: Patient shakes head yes and no to questions today and actually spoke! When asked where she was, patient responded with, "the hospital." Patient is still very lethargic, but cognition appears to be improving. Will continue to monitor. Patient is still currently receiving tube feedings through the NG tube. Dr. Cervantes re-consulted for PEG tube evaluation. Spoke to Dr. Cervantes about PEG tube evaluation, he requested that someone else be consulted since he has not seen the patient since . Discussed with Dr. Oshea, he requested specifically that Dr. Estrada be consulted for a second GI opinion. Dr. Estrada's fellow Dr. Shah called and informed. Dr. Shah stated that he will see the patient in the morning tomorrow and will plan for PEG placement either friday or friday next week. 09/03: Patient's platelets still too low for LP even after multiple platelet transfusions. Dr. Denney is requesting platelets be >75. Will discuss with Dr. Denney possibility of performing a LP shortly after a platelet transfusion is completed. Will need to be transfused more platelets. Dr. Denney would like to perform LP under anesthesia due to patient's mental status and inability to follow commands properly. 09/01: Patient was unable to be awoken today. She responded to painful stimuli by pulling away and moaning. She was able to move all four extremities. Discussed with patient's that the patient's prognosis is very poor. He states he understands. Patient will likely need a LP to acquire CSF fluid for further eval. Transfused 1 unit of platelets today. f/u EEG discontinued morphine 08/31: She is somulent. Able to open eyes, random slow movements of arms and legs. Not following any commands. She was started on IV decardon yesterday. She will likley need LP to aquire CSF in the future to again test for JAGUAR virus since imaging via MRI is suggesting progressive multifocal leukoencephalopathy. Previous testing of JAGUAR virus were negative. This being said her platelet count is very low, transfusing 1 unit today. Pending hematology evaluation. 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 Neck MRA 08/29/17: No significant stenosis seen in the visualized bilateral common or internal carotid arteries. Mild right ICA proximal stenosis is identified with plaque identified at the right carotid bulb. Widely patent bilateral common carotids but otherwise, as imaged. Symmetric vertebrobasilar circulation. Head MRA 08/29/17: Suboptimal diagnostic quality due to motion degraded images, allowing for this, no occlusion. Apparent narrowing in bilateral M1 segments could be related to motion artifacts. Patient potentially had a seizure over night. CT (08/22) was negative for any acute findings. Brain MRI was ordered for f/u. patient has not had any more events since then Neurology Consulted, Dr. Denney --> Help appreciated; states that all changes in AMS are most likely due to AIDS Brain MRI w/o contrast(08/22) - Mild diffuse/confluent nonspecific white matter changes as described. Findings are of uncertain etiology though could represent sequela of HIV encephalopathy. PML not excluded. See above discussion for additional differential diagnostic considerations. Questionable secretions/opacification of exuberantly aerated mastoid air cells ramyfing into the left petrous apex however the possibility apical petrositis or small the left petrous CT apex cholesterol granuloma. Repeat Head CT w/o contrast 08/28/17 - Significant motion artifact limits this exam however interval edema is identified at the right greater than left basal ganglia and thalami as well as the bilateral occipital lobes and the right parietal lobe. Is difficult to determine definitively though this is vasogenic or cytotoxic however embolic infarction is questioned. Given the basal ganglia and thalami being affected focally, and anoxic insult is included in the differential diagnosis or even though there is no global loss of vaca-white matter differentiation and edema in this patient. Infectious or metabolic etiologies are not excluded but are not favored. * EEG ordered for morning of 08/23: This is a probably normal EEG. There was increased beta activity noticed intermittently. This could be a normal finding. No focal slowing no seizure like activity was observed. Correlation with clinical findings is needed. * JAGUAR virus <500 = negative * HLA-B57:01 sensitivity, awaiting results * Started on Depakote 250mg PO daily --> patient unable to swallow, NGT placed and started on valproate 250mg IVP daily AMS 2/ AIDS Dementia Vs. Opportunistic Infection ID Dr. Meneses --> help appreciated * Continue Diflucan, bactrim * Started Atripla started 08/27/17 - CT head 08/11 - Negative - MRI 08/12 - unremarkable - LDH - 478 - CD4 - 72 (AIDS confirmed) -->repeat 110 - HIV-1 RNA Qnt (RT-PCR) - 5.80 high - Viral Load: Must r/o infectious causes * CMV - IgG > 10; IgM <30; Dennotes previous infection, no acute infection * Crypto - <1:2 * RPR - nonreactive * Toxoplasma - IgG < 7.2; IgM < 8 - Patient started on empiric antibiotic therapy on Wednesday 09/05 with Aztreonam and Vancomyocin due to rising leukocytosis. Leukocytosis improving 20.6 --> 15.8. AIDS 09/09: Continue on Atripla 08/31: On Atripla at this time. This is being crushed and given via NGT * Dr. Meneses recs * Bactrim DS 1 tab PO M/W/F * Atripla [id number](Efavirenz/Emtricitabine/Teno) 1 tab PO daily - script written and placed in chart for pt's to cook pickled meat and fill, so when patient is discharged to [facility], he will be able to take her medication with her, as [facility] does not usually provide HARRT medications. Dr. Sahu discussed with pt's , Emiliano Hoang, on the phone. He stated he understands and will cook pickled meat prescription to fill it by 08/28. * Neupogen given 08/25 * HIV screen Positive, CD4 = 72, repeat CD4 = 110 * hep panel negative * Will f/u recs for HARRT therapy upon discharge. * Patient will need to follow up with HIV clinic for continuation of HARRT therapy as out patient. * [facility] - Clinic at [address], [place] * [facility] - Clinic at [address], [place] Phone Anemia; most likely 2/2 to advanced AIDS 09/08: Hg 9.8; platelets increased to 154 09/06: Platelet count gracia to 130 08/31: Patient's platelet count continues to decrease, conset recived for one unit of platelets to be given * Improved to Hgb of 12.7 from 7.1 - patient given 2 units pRBCs on 08/26/17 ( consent given by , Emiliano Hoang, on phone) * continue to monitor Diabetes hypoglycemia protocol RISS only for now Endo consulted, Dr. Nesha Donaldson; appreciate recs * Levemir 8units SC Q12 * ISS low HgA1C - 7.1 accuchecks q6h Continue to monitor Hyponatremia; resolved * STOPPED medications due to potential s/e of hyponatremia * Zoloft, Trazodone and IV fluids. * Nephro Consult, Dr. Wong - help appreciated, f/u recs * urine sodium 113 --> 43 * urine osmol 502 --> 176 * serum osmol 276 * will continue to monitor Dysphagia; resolved Chest CT * particulate matter, possibly food, identified within the esophageal lumen intermixed with gas. * Incidental 6mm nodule within superior right breast. CXR * no acute cardiopulmonary disease Neck soft tissue CT * Abnormal circumferential thickening noted of the cervical esophagus. findings could be due to reflux esophagitis but esophageal carcinoma is not excluded. GI consulted, Dr. 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 Prophylactic Care * Heparin 5000u sc q8h - DC'ed due to anemia * SCDs for DVT ppx * Pepcid 20 ivp daily * Fall precautions Case discussed with Dr. Tori Sahu PGY1 <Drew Valle - Last Filed: 09/09/17 13:52> Objective - Vital Signs/Intake and Output Vital Signs (last 24 hours): Temp Pulse Resp BP Pulse Ox 98.2 F 99 H 20 148/75 100 09/09/17 07:20 09/09/17 07:20 09/09/17 07:20 09/09/17 07:20 09/09/17 07:20 Intake and Output: 09/09/17 09/09/17 06:59 18:59 Intake Total 2710 Output Total 2401 Balance 309 - Medications Medications: Current Medications Amlodipine Besylate (Norvasc) 5 mg NG DAILY [facility] Last Admin: 09/09/17 10:15 Dose: 5 mg Aspirin (Ecotrin) 81 mg PO DAILY [facility] Last Admin: 09/09/17 10:15 Dose: 81 mg Dexamethasone (Decadron Inj) 4 mg IVP Q6H [facility] Last Admin: 09/09/17 12:06 Dose: 4 mg Dextrose (Dextrose 50% Inj) 0 ml IV STAT PRN; Protocol PRN Reason: Hyglycemia Protocol Last Admin: 09/07/17 17:10 Dose: 50 ml Dextrose (Glutose 15) 0 gm PO ONCE PRN; Protocol PRN Reason: Hypoglycemia Protocol Efavirenz/Emtricitabine/Tenofovir (Atripla 600 Mg-200 Mg-300 Mg) 1 tab PO DAILY [facility] Last Admin: 09/09/17 12:05 Dose: 1 tab Famotidine (Pepcid) 20 mg PO DAILY [facility] Last Admin: 09/09/17 10:15 Dose: 20 mg Glucagon (Glucagen Diagnostic Kit) 0 mg IM STAT PRN; Protocol PRN Reason: Hypoglycemia Protocol Hydralazine HCl (Apresoline) 10 mg IVP Q6H PRN PRN Reason: Systolic Blood Pressure Last Admin: 09/09/17 04:13 Dose: 10 mg Valproate Sodium 250 mg/ (Sodium Chloride) 102.5 mls @ 100 mls/hr IVPB DAILY [facility] Last Admin: 09/09/17 10:14 Dose: 100 mls/hr Aztreonam 2 gm/ Sodium (Chloride) 100 mls @ 100 mls/hr IVPB Q8H [facility] Last Admin: 09/09/17 13:20 Dose: 100 mls/hr Vancomycin/Sodium Chloride (Vancocin) 1 gm in 200 mls @ 133 mls/hr IVPB Q12H [facility] Stop: 09/10/17 21:01 Last Admin: 09/09/17 08:28 Dose: Not Given Dextrose (Dextrose 5% In Water 1000 Ml) 1,000 mls @ 0 mls/hr IV .Q0M PRN; Protocol; Per Protocol PRN Reason: Hypoglycemia Protocol Fluconazole (Diflucan Iv 200 Mg/100 Ml Ns) 100 mls @ 100 mls/hr IVPB DAILY [facility] Last Admin: 09/09/17 10:14 Dose: 100 mls/hr Insulin Aspart (Novolog) 0 unit SC ACHS [facility] PRN Reason: Protocol Last Admin: 09/09/17 12:06 Dose: 2 unit Insulin Detemir (Levemir) 12 unit SC Q12 [facility] Last Admin: 09/09/17 10:15 Dose: Not Given Levothyroxine Sodium (Synthroid) 125 mcg PO DAILY@0630 [facility] Last Admin: 09/09/17 06:34 Dose: 125 mcg Ondansetron HCl (Zofran Inj) 4 mg IVP Q6H PRN PRN Reason: Nausea/Vomiting Last Admin: 08/27/17 14:44 Dose: 4 mg Potassium Phos/Sodium Phos (Neutra-Phos) 1 pkt PO TID [facility] Last Admin: 09/09/17 13:20 Dose: 1 pkt Sucralfate (Carafate Oral Susp) 1 gm PO ACBHS [facility] Last Admin: 09/09/17 06:34 Dose: 1 gm Trimethoprim/Sulfamethoxazole (Bactrim Ds Tab) 1 tab PO MWF [facility] Last Admin: 09/08/17 08:31 Dose: 1 tab - Labs Labs: 09/09/17 07:27 09/09/17 07:27 PT 11.1 SECONDS (9.7-12.2) 09/08/17 06:26 INR 1.0 09/08/17 06:26 APTT 26 SECONDS (21-34) 09/08/17 06:26 Attending/Attestation - Attestation I have personally seen and examined this patient.: Yes I have fully participated in the care of the patient.: Yes I have reviewed all pertinent clinical information, including history, physical exam and plan: Yes Notes (Text): Medical attending: Patient was seen and examined by me, agrees the above note by certified medical records coder. Family members were again present today, and again we were careful to not reveal medical information since the patient had requested that The patient was awake, alert, very talkative. She answered all her questions correctly. We had the NG tube removed, and she swallowed successfully. The patient denied having any fevers, denied having any chest pain, denied having stomach pain, denied having shortness of breath. She was able to elevate both her arms and legs Currently the patient remains on IV Decadron, as well as IV antibiotics, as well as the HARRT medications. Platelet count remained stable at this time, at this moment it not clear how to go about getting an LP for further CSF analysis. This is still pending at this moment. Thank you very much, Drew Valle
[2017-09-09 08:28] LABS: METAMYELOCYTE 1 % (0-0); MYELOCYTE 2 % (0-0); NEUTROPHIL 81 % (50-75); TOTAL CELLS COUNTED 100
[2017-09-09] MEDS: Valproate 250 MG in Sodium Chloride 0.9% 100 ML IVPB SCH (10:14)
[2017-09-09] MEDS: Fluconazole IV 200mg/100 ml NS 100 ML IVPB SCH (10:14)
[2017-09-09] MEDS: Insulin Detemir 100 units/ml Vial (Levemir) SC SCH (10:15)
[2017-09-09] MEDS: Potassium & Sodium Phosphate PO SCH ×3 (10:15→18:29)
--- NOTE | 2017-09-09 11:34 | MRI ---
PROCEDURE: MRI BRAIN WITHOUT CONTRAST HISTORY: follow up PML COMPARISON: Unenhanced head CT 09/03/2017 an unenhanced brain MRI 08/29/2017. TECHNIQUE: Multiplanar, multisequence MR images of the brain were obtained without intravenous contrast enhancement. FINDINGS: HEMORRHAGE: None DWI: No evidence of an acute or early subacute infarction. BRAIN PARENCHYMA: Extensive white matter changes do not appear simply changed at the bilateral frontal, parietal and occipital lobes a long TR acquisitions, however, there is significant decrease in white-matter signal abnormality at the bilateral thalami with minimal residual signal abnormality remaining at the left side and a [id number] amount the right. Once again, there is no apparent cortical edema appreciated. No interval acute intracranial findings identified at this time. VENTRICLES: Unremarkable. No hydrocephalus. CRANIUM: Unremarkable. ORBITS: Grossly unremarkable. PARANASAL SINUSES/MASTOIDS: Clear VASCULAR SYSTEM: Skull base flow voids intact. OTHER FINDINGS: None. IMPRESSION: Diminishing bilateral thalamic signal abnormality though bilateral cerebral white matter signal changes are not significantly changed. No acute intracranial findings as discussed above.
[2017-09-09] MEDS: Efavirenz/Emtricitabine/Teno 1 TAB PO SCH (12:05)
--- NOTE | 2017-09-09 21:23 | PN ---
ENDOCRINOLOGY FOLLOWUP NOTE DATE: LOCATION: Room #654. SUBJECTIVE: This is a 57-year-old female with recent uncontrolled type 1 insulin-dependent diabetes, still on IV steroid therapy given as Decadron 4 mg IV every 6 hours as ordered. Supervening hyperglycemic accelerations have been noted today with glucose levels ranging from 307 to 329 mg/dL. Her latest chemistries showed a BUN of 39, sodium 128, potassium 4.0, chloride 100, CO2 of 19, glucose 303, and creatinine 0.8. PLAN: So at this time, we will modify and increase the basal insulin with Levemir to be given as 20 units subcu every 12 hours at 10 a.m. and 10 p.m. daily as ordered. We will titrate incrementally as indicated to optimize metabolic control. We will follow and advise accordingly. Nesha Donaldson MD
[2017-09-09] MEDS ORDERED: Insulin Detemir 100 units/ml Vial (Levemir) SC SCH (22:00)
[2017-09-10] MEDS: Dexamethasone 4 mg/1 ml IVP SCH ×4 (00:17→18:29)
[2017-09-10] MEDS: Aztreonam 2 GM in Sodium Chloride 0.9% 100 ML IVPB SCH ×3 (04:35→21:00)
[2017-09-10] MEDS: Levothyroxine 125 MCG TAB PO SCH (06:05)
--- NOTE | 2017-09-10 06:55 | CP.PCM.PN ---
<Rupesh Sahu - Last Filed: 09/10/17 14:34> Subjective - Date & Time of Evaluation Date of Evaluation: 09/10/17 Time of Evaluation: 06:55 - Subjective Subjective: PGY1 Medicine Note for Dr. Valle Patient seen and examined at bedside this morning. Patient is awake and alert this morning in a great mood. She is oriented x3 and is making sense when she speaks. Patient states she feels great and is in no pain. She denies a complete ROS and says she feels great. She appears overall weak, most likely 2/2 to being bed bound for weeks, but patient states she feels well and denies weakness. Objective - Vital Signs/Intake and Output Vital Signs (last 24 hours): Temp Pulse Resp BP Pulse Ox 97.8 F 89 20 172/85 H 97 09/09/17 23:19 09/10/17 04:02 09/09/17 23:19 09/09/17 23:19 09/09/17 23:19 Intake and Output: 09/09/17 09/10/17 18:59 06:59 Intake Total 200 250 Output Total 1600 3200 Balance -1400 -2950 - Medications Medications: Current Medications Amlodipine Besylate (Norvasc) 5 mg NG DAILY [facility] Last Admin: 09/09/17 10:15 Dose: 5 mg Aspirin (Ecotrin) 81 mg PO DAILY [facility] Last Admin: 09/09/17 10:15 Dose: 81 mg Dexamethasone (Decadron Inj) 4 mg IVP Q6H [facility] Last Admin: 09/10/17 06:03 Dose: 4 mg Dextrose (Dextrose 50% Inj) 0 ml IV STAT PRN; Protocol PRN Reason: Hyglycemia Protocol Last Admin: 09/07/17 17:10 Dose: 50 ml Dextrose (Glutose 15) 0 gm PO ONCE PRN; Protocol PRN Reason: Hypoglycemia Protocol Efavirenz/Emtricitabine/Tenofovir (Atripla 600 Mg-200 Mg-300 Mg) 1 tab PO DAILY [facility] Last Admin: 09/09/17 12:05 Dose: 1 tab Famotidine (Pepcid) 20 mg PO DAILY [facility] Last Admin: 09/09/17 10:15 Dose: 20 mg Glucagon (Glucagen Diagnostic Kit) 0 mg IM STAT PRN; Protocol PRN Reason: Hypoglycemia Protocol Hydralazine HCl (Apresoline) 10 mg IVP Q6H PRN PRN Reason: Systolic Blood Pressure Last Admin: 09/09/17 04:13 Dose: 10 mg Valproate Sodium 250 mg/ (Sodium Chloride) 102.5 mls @ 100 mls/hr IVPB DAILY [facility] Last Admin: 09/09/17 10:14 Dose: 100 mls/hr Aztreonam 2 gm/ Sodium (Chloride) 100 mls @ 100 mls/hr IVPB Q8H [facility] Last Admin: 09/10/17 04:35 Dose: 100 mls/hr Vancomycin/Sodium Chloride (Vancomycin 1 Gm/Ns 200 Ml) 1 gm in 200 mls @ 133 mls/hr IVPB Q12H [facility] Stop: 09/10/17 21:01 Last Admin: 09/09/17 08:28 Dose: Not Given Dextrose (Dextrose 5% In Water 1000 Ml) 1,000 mls @ 0 mls/hr IV .Q0M PRN; Protocol; Per Protocol PRN Reason: Hypoglycemia Protocol Fluconazole (Diflucan Iv 200 Mg/100 Ml Ns) 100 mls @ 100 mls/hr IVPB DAILY [facility] Last Admin: 09/09/17 10:14 Dose: 100 mls/hr Insulin Aspart (Novolog) 0 unit SC ACHS [facility] PRN Reason: Protocol Last Admin: 09/09/17 21:48 Dose: 2 unit Insulin Detemir (Levemir) 20 unit SC Q12 [facility] Last Admin: 09/09/17 21:46 Dose: 20 unit Levothyroxine Sodium (Synthroid) 125 mcg PO DAILY@0630 [facility] Last Admin: 09/09/17 06:34 Dose: 125 mcg Ondansetron HCl (Zofran Inj) 4 mg IVP Q6H PRN PRN Reason: Nausea/Vomiting Last Admin: 08/27/17 14:44 Dose: 4 mg Potassium Phos/Sodium Phos (Neutra-Phos) 1 pkt PO TID [facility] Last Admin: 09/09/17 18:29 Dose: 1 pkt Sucralfate (Carafate Oral Susp) 1 gm PO ACBHS [facility] Last Admin: 09/09/17 21:37 Dose: 1 gm Trimethoprim/Sulfamethoxazole (Bactrim Ds Tab) 1 tab PO MWF [facility] Last Admin: 09/08/17 08:31 Dose: 1 tab - Labs Labs: 09/09/17 07:27 09/09/17 07:27 PT 11.1 SECONDS (9.7-12.2) 09/08/17 06:26 INR 1.0 09/08/17 06:26 APTT 26 SECONDS (21-34) 09/08/17 06:26 - Constitutional Appears: Non-toxic, No Acute Distress, Chronically Ill - Head Exam Head Exam: ATRAUMATIC, NORMOCEPHALIC - Eye Exam Eye Exam: EOMI, Normal appearance, PERRL. absent: Scleral icterus - ENT Exam ENT Exam: Mucous Membranes Moist - Neck Exam Neck Exam: Full ROM. absent: Lymphadenopathy, Tenderness - Respiratory Exam Respiratory Exam: Clear to Ausculation Bilateral, NORMAL BREATHING PATTERN. absent: Accessory Muscle Use, Rales, Wheezes, Respiratory Distress - Cardiovascular Exam Cardiovascular Exam: REGULAR RHYTHM, +S1, +S2 - GI/Abdominal Exam GI & Abdominal Exam: Soft, Normal Bowel Sounds. absent: Distended, Firm, Guarding, Rigid, Tenderness - Extremities Exam Extremities Exam: Normal Inspection. absent: Calf Tenderness, Pedal Edema - Back Exam Back Exam: absent: CVA tenderness (L), CVA tenderness (R), vertebral tenderness - Neurological Exam Neurological Exam: Alert, Awake, Oriented x3 - Psychiatric Exam Psychiatric exam: Normal Affect, Normal Mood - Skin Skin Exam: Dry, Normal Color, Warm Assessment and Plan - Assessment and Plan (Free Text) Plan: AIDS, acute encephalopathy 09/10: Vanco trough = 18.65 - Vanco restarted. Awaiting neurology recommendations in regards to LP. Patient mental status is continuing to improve. Continue current medical management. PEG placement on hold until further notice due to return of cognitive function and ability to feed her self. Continue to monitor closely. f/u PT recommendations. 09/09: Pt is AAOx3 today and is much more alert today. Her NG tube was pulled this morning and swallow evaluation was done this morning. Patient showed no signs of aspiration (cough/throat clearing) and was cleared for a regular diet. She is scheduled for a brain MRI this morning to re-evaluate for PML. Patient was not given any sedative for MRI per Dr. Denney because we do not want to negatively affect her cognitive function. Depending on the results, Dr. Denney will determine if a LP is necessary or not. PEG tube placement is still on hold as patient's mental status appears to be improving and may be able to feed herself. 09/08: Per Neuro note, it appears LP is tentatively scheduled for tomorrow, sunday 09/09. Platelet count is 154 today. Patient is more alert and awake, answering questions today. Patient still appears very lethargic and weak. Per GI , PEG tube placement will remain pending for further observation of hospital course. GI would like ID eval for potential infectious complications of PEG tube placement. 09/06: Spoke to Dr. Denney. Given that her platelets have risen, we ordered an LP to be done under fluoro for Friday. 09/05: Patient shakes head yes and no to questions today and actually spoke! When asked where she was, patient responded with, "the hospital." Patient is still very lethargic, but cognition appears to be improving. Will continue to monitor. Patient is still currently receiving tube feedings through the NG tube. Dr. Cervantes re-consulted for PEG tube evaluation. Spoke to Dr. Cervantes about PEG tube evaluation, he requested that someone else be consulted since he has not seen the patient since . Discussed with Dr. Oshea, he requested specifically that Dr. Estrada be consulted for a second GI opinion. Dr. Estrada's fellow Dr. Shah called and informed. Dr. Shah stated that he will see the patient in the morning tomorrow and will plan for PEG placement either friday or friday next week. 09/03: Patient's platelets still too low for LP even after multiple platelet transfusions. Dr. Denney is requesting platelets be >75. Will discuss with Dr. Denney possibility of performing a LP shortly after a platelet transfusion is completed. Will need to be transfused more platelets. Dr. Denney would like to perform LP under anesthesia due to patient's mental status and inability to follow commands properly. 09/01: Patient was unable to be awoken today. She responded to painful stimuli by pulling away and moaning. She was able to move all four extremities. Discussed with patient's that the patient's prognosis is very poor. He states he understands. Patient will likely need a LP to acquire CSF fluid for further eval. Transfused 1 unit of platelets today. f/u EEG discontinued morphine 08/31: She is somulent. Able to open eyes, random slow movements of arms and legs. Not following any commands. She was started on IV decardon yesterday. She will likley need LP to aquire CSF in the future to again test for JAGUAR virus since imaging via MRI is suggesting progressive multifocal leukoencephalopathy. Previous testing of JAGUAR virus were negative. This being said her platelet count is very low, transfusing 1 unit today. Pending hematology evaluation. 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 Neck MRA 08/29/17: No significant stenosis seen in the visualized bilateral common or internal carotid arteries. Mild right ICA proximal stenosis is identified with plaque identified at the right carotid bulb. Widely patent bilateral common carotids but otherwise, as imaged. Symmetric vertebrobasilar circulation. Head MRA 08/29/17: Suboptimal diagnostic quality due to motion degraded images, allowing for this, no occlusion. Apparent narrowing in bilateral M1 segments could be related to motion artifacts. Brain MRI 09/09/17: Diminishing bilateral thalamic signal abnormality though bilateral cerebral white matter signal changes are not significantly changed. No acute intracranial findings Patient potentially had a seizure over night. CT (08/22) was negative for any acute findings. Brain MRI was ordered for f/u. patient has not had any more events since then Neurology Consulted, Dr. Denney --> Help appreciated; states that all changes in AMS are most likely due to AIDS Brain MRI w/o contrast(08/22) - Mild diffuse/confluent nonspecific white matter changes as described. Findings are of uncertain etiology though could represent sequela of HIV encephalopathy. PML not excluded. See above discussion for additional differential diagnostic considerations. Questionable secretions/opacification of exuberantly aerated mastoid air cells ramyfing into the left petrous apex however the possibility apical petrositis or small the left petrous CT apex cholesterol granuloma. Repeat Head CT w/o contrast 08/28/17 - Significant motion artifact limits this exam however interval edema is identified at the right greater than left basal ganglia and thalami as well as the bilateral occipital lobes and the right parietal lobe. Is difficult to determine definitively though this is vasogenic or cytotoxic however embolic infarction is questioned. Given the basal ganglia and thalami being affected focally, and anoxic insult is included in the differential diagnosis or even though there is no global loss of vaca-white matter differentiation and edema in this patient. Infectious or metabolic etiologies are not excluded but are not favored. * EEG ordered for morning of 08/23: This is a probably normal EEG. There was increased beta activity noticed intermittently. This could be a normal finding. No focal slowing no seizure like activity was observed. Correlation with clinical findings is needed. * JAGUAR virus <500 = negative * HLA-B57:01 sensitivity, awaiting results * Started on Depakote 250mg PO daily --> patient unable to swallow, NGT placed and started on valproate 250mg IVP daily AMS 12/26 AIDS Dementia Vs. Opportunistic Infection ID Dr. Meneses --> help appreciated * Continue Diflucan, bactrim * Started Atripla started 08/27/17 - CT head 08/11 - Negative - MRI 08/12 - unremarkable - LDH - 478 - CD4 - 72 (AIDS confirmed) -->repeat 110 - HIV-1 RNA Qnt (RT-PCR) - 5.80 high - Viral Load: Must r/o infectious causes * CMV - IgG > 10; IgM <30; Dennotes previous infection, no acute infection * Crypto - <1:2 * RPR - nonreactive * Toxoplasma - IgG < 7.2; IgM < 8 - Patient started on empiric antibiotic therapy on Wednesday 09/05 with Aztreonam and Vancomyocin due to rising leukocytosis. Leukocytosis improving 20.6 --> 15.8. AIDS 09/09: Continue on Atripla 08/31: On Atripla at this time. This is being crushed and given via NGT * Dr. Meneses recs * Bactrim DS 1 tab PO M/W/ * Atripla [id number](Efavirenz/Emtricitabine/Teno) 1 tab PO daily - script written and placed in chart for pt's to fish bait picker and fill, so when patient is discharged to [facility], he will be able to take her medication with her, as [facility] does not usually provide HARRT medications. Dr. Sahu discussed with pt's , Emiliano Hoang, on the phone. He stated he understands and will fish bait picker prescription to fill it by 08/28. * Neupogen given 08/25 * HIV screen Positive, CD4 = 72, repeat CD4 = 110 * hep panel negative * Will f/u recs for HARRT therapy upon discharge. * Patient will need to follow up with HIV clinic for continuation of HARRT therapy as out patient. * [facility] - Clinic at [address], [place] * [facility] - Clinic at [address], [place] Phone Anemia; most likely 2/2 to advanced AIDS 09/08: Hg 9.8; platelets increased to 154 09/06: Platelet count gracia to 130 08/31: Patient's platelet count continues to decrease, conset recived for one unit of platelets to be given * Improved to Hgb of 12.7 from 7.1 - patient given 2 units pRBCs on 08/26/17 ( consent given by , Emiliano Hoang, on phone) * continue to monitor Diabetes hypoglycemia protocol RISS only for now Endo consulted, Dr. Nesha Donaldson; appreciate recs * Levemir 8units SC Q12 * ISS low HgA1C - 7.1 accuchecks q6h Continue to monitor Hyponatremia; resolved * STOPPED medications due to potential s/e of hyponatremia * Zoloft, Trazodone and IV fluids. * Nephro Consult, Dr. Wong - help appreciated, f/u recs * urine sodium 113 --> 43 * urine osmol 502 --> 176 * serum osmol 276 * will continue to monitor Dysphagia; resolved Chest CT * particulate matter, possibly food, identified within the esophageal lumen intermixed with gas. * Incidental 6mm nodule within superior right breast. CXR * no acute cardiopulmonary disease Neck soft tissue CT * Abnormal circumferential thickening noted of the cervical esophagus. findings could be due to reflux esophagitis but esophageal carcinoma is not excluded. GI consulted, Dr. 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 Prophylactic Care * Heparin 5000u sc q8h - DC'ed due to anemia * SCDs for DVT ppx * Pepcid 20 ivp daily * Fall precautions Case discussed with Dr. Tori Goddard Adelina PGY1 <Drew Valle H - Last Filed: 09/10/17 15:58> Objective - Vital Signs/Intake and Output Vital Signs (last 24 hours): Temp Pulse Resp BP Pulse Ox 97.4 F L 83 20 157/88 H 100 09/10/17 07:35 09/10/17 07:35 09/10/17 07:35 09/10/17 07:35 09/10/17 07:35 Intake and Output: 09/10/17 09/10/17 06:59 18:59 Intake Total 470 Output Total 3200 Balance -2730 - Medications Medications: Current Medications Amlodipine Besylate (Norvasc) 5 mg NG DAILY [facility] Last Admin: 09/10/17 10:40 Dose: 5 mg Aspirin (Ecotrin) 81 mg PO DAILY [facility] Last Admin: 09/10/17 10:40 Dose: 81 mg Dexamethasone (Decadron Inj) 4 mg IVP Q6H [facility] Last Admin: 09/10/17 11:19 Dose: 4 mg Dextrose (Dextrose 50% Inj) 0 ml IV STAT PRN; Protocol PRN Reason: Hyglycemia Protocol Last Admin: 09/07/17 17:10 Dose: 50 ml Dextrose (Glutose 15) 0 gm PO ONCE PRN; Protocol PRN Reason: Hypoglycemia Protocol Efavirenz/Emtricitabine/Tenofovir (Atripla 600 Mg-200 Mg-300 Mg) 1 tab PO DAILY [facility] Last Admin: 09/10/17 10:40 Dose: 1 tab Famotidine (Pepcid) 20 mg PO DAILY [facility] Last Admin: 09/10/17 10:40 Dose: 20 mg Glucagon (Glucagen Diagnostic Kit) 0 mg IM STAT PRN; Protocol PRN Reason: Hypoglycemia Protocol Hydralazine HCl (Apresoline) 10 mg IVP Q6H PRN PRN Reason: Systolic Blood Pressure Last Admin: 09/09/17 04:13 Dose: 10 mg Valproate Sodium 250 mg/ (Sodium Chloride) 102.5 mls @ 100 mls/hr IVPB DAILY [facility] Last Admin: 09/10/17 10:39 Dose: 100 mls/hr Aztreonam 2 gm/ Sodium (Chloride) 100 mls @ 100 mls/hr IVPB Q8H [facility] Last Admin: 09/10/17 12:30 Dose: 100 mls/hr Vancomycin/Sodium Chloride (Vancomycin 1 Gm/Ns 200 Ml) 1 gm in 200 mls @ 133 mls/hr IVPB Q12H [facility] Stop: 09/10/17 21:01 Last Admin: 09/09/17 08:28 Dose: Not Given Dextrose (Dextrose 5% In Water 1000 Ml) 1,000 mls @ 0 mls/hr IV .Q0M PRN; Protocol; Per Protocol PRN Reason: Hypoglycemia Protocol Fluconazole (Diflucan Iv 200 Mg/100 Ml Ns) 100 mls @ 100 mls/hr IVPB DAILY [facility] Last Admin: 09/10/17 11:12 Dose: 100 mls/hr Insulin Aspart (Novolog) 0 unit SC ACHS [facility] PRN Reason: Protocol Last Admin: 09/10/17 11:30 Dose: Not Given Insulin Detemir (Levemir) 8 unit SC [facility] Levothyroxine Sodium (Synthroid) 125 mcg PO DAILY@0630 [facility] Last Admin: 09/10/17 06:05 Dose: 125 mcg Ondansetron HCl (Zofran Inj) 4 mg IVP Q6H PRN PRN Reason: Nausea/Vomiting Last Admin: 08/27/17 14:44 Dose: 4 mg Potassium Phos/Sodium Phos (Neutra-Phos) 1 pkt PO TID [facility] Last Admin: 09/10/17 14:58 Dose: 1 pkt Sucralfate (Carafate Oral Susp) 1 gm PO ACBHS [facility] Last Admin: 09/10/17 08:43 Dose: 1 gm Trimethoprim/Sulfamethoxazole (Bactrim Ds Tab) 1 tab PO MWF [facility] Last Admin: 09/10/17 08:43 Dose: 1 tab - Labs Labs: 09/10/17 07:07 09/10/17 07:07 PT 11.1 SECONDS (9.7-12.2) 09/08/17 06:26 INR 1.0 09/08/17 06:26 APTT 26 SECONDS (21-34) 09/08/17 06:26 Attending/Attestation - Attestation I have personally seen and examined this patient.: Yes I have fully participated in the care of the patient.: Yes I have reviewed all pertinent clinical information, including history, physical exam and plan: Yes Notes (Text): 09/10/17 15:58 Medical attending: Patient was seen and examined by me, agrees the above note by medical transcription radiology. The patient had her NG tube removed yesterday. Today she is very awake and alert she is following all commands. She is difficult to have a pleasant conversation. She's also swallowing quite easily as well. She has just had another repeat MRI done The platelet count is much better now. Excellent were continuing with the IV Decadron at this moment. 4 having PT/OT work with her again I also spoke with patient's family member was Vee Tavares. And gave them an update Thank you very much, Drew Valle
[2017-09-10 07:20] LABS: BASO % 0.1 % (0.0-2.0); HEMATOCRIT 29.8 % (34.0-47.0); LYMPH # 0.9 K/uL (1.0-4.3); LYMPH % 5.4 % (20.0-40.0); MEAN CELL VOLUME 85.7 fL (81.0-99.0); MEAN CORPUSCULAR HEMOGLOBIN 28.9 pg (27.0-31.0); MEAN CORPUSCULAR HGB CONC 33.7 g/dL (33.0-37.0); MEAN PLATELET VOLUME 8.3 fL (7.2-11.7); MONO # 1.2 K/uL (0.0-0.8); MONO % 7.3 % (0.0-10.0); PLATELET COUNT 258 K/uL (130-400); RED CELL DISTRIBUTION WIDTH 14.3 % (11.5-14.5); WHITE BLOOD COUNT 16.1 K/uL (4.8-10.8)
[2017-09-10 07:34] LABS: CHLORIDE 100 mmol/L (98-107); POTASSIUM 3.7 mmol/L (3.6-5.2); SODIUM 132 mmol/L (132-148)
[2017-09-10 07:36] LABS: ALKALINE PHOSPHATASE 119 U/L (38-126); AST/SGOT 91 U/L (14-36); BILIRUBIN,TOTAL 0.5 mg/dL (0.2-1.3); BLOOD UREA NITROGEN 33 mg/dL (7-17); CARBON DIOXIDE 20 mmol/L (22-30); GFR AFRICAN-AMERICAN > 60; TOTAL PROTEIN 7.1 g/dL (6.3-8.3)
[2017-09-10 07:37] LABS: ALT/SGPT 124 U/L (9-52); CALCIUM 9.5 mg/dl (8.6-10.4); GLUCOSE,RANDOM 104 mg/dL (65-105); MAGNESIUM 1.9 mg/dL (1.6-2.3); PHOSPHOROUS 3.9 mg/dL (2.5-4.5)
[2017-09-10] MEDS: (Novolog) Insulin Aspart, Recombinant 100 u/ml 10 ml vial SC SCH ×4 (08:20→21:57)
[2017-09-10] MEDS: Sucralfate 1 gm/10 ml Oral Susp UD PO SCH ×2 (08:43→22:07)
[2017-09-10] MEDS: Tmp-Smz 800 mg-160 mg DS Tab PO SCH (08:43)
[2017-09-10 09:03] LABS: MYELOCYTE 1 % (0-0); NEUTROPHIL 86 % (50-75); TOTAL CELLS COUNTED 100
[2017-09-10] MEDS: Valproate 250 MG in Sodium Chloride 0.9% 100 ML IVPB SCH (10:39)
[2017-09-10] MEDS: Efavirenz/Emtricitabine/Teno 1 TAB PO SCH (10:40)
[2017-09-10] MEDS: Potassium & Sodium Phosphate PO SCH ×3 (10:44→18:32)
[2017-09-10] MEDS: Fluconazole IV 200mg/100 ml NS 100 ML IVPB SCH (11:12)
--- NOTE | 2017-09-10 12:34 | CP.PCM.PN ---
Subjective - Date & Time of Evaluation Date of Evaluation: 09/10/17 Time of Evaluation: 12:32 - Subjective Subjective: Ms. Morel was seen and examined at the bedside. She is more alert, oriented in all spheres. She denies any pain, headache, nausea, dizziness, numbness. She also claims of improved appetite prior to NGT placement. There is no untoward events overnight. Objective - Vital Signs/Intake and Output Vital Signs (last 24 hours): Temp Pulse Resp BP Pulse Ox 97.4 F L 83 20 157/88 H 100 09/10/17 07:35 09/10/17 07:35 09/10/17 07:35 09/10/17 07:35 09/10/17 07:35 Intake and Output: 09/10/17 09/10/17 06:59 18:59 Intake Total 470 Output Total 3200 Balance -2730 - Medications Medications: Current Medications Amlodipine Besylate (Norvasc) 5 mg NG DAILY [facility] Last Admin: 09/10/17 10:40 Dose: 5 mg Aspirin (Ecotrin) 81 mg PO DAILY [facility] Last Admin: 09/10/17 10:40 Dose: 81 mg Dexamethasone (Decadron Inj) 4 mg IVP Q6H [facility] Last Admin: 09/10/17 11:19 Dose: 4 mg Dextrose (Dextrose 50% Inj) 0 ml IV STAT PRN; Protocol PRN Reason: Hyglycemia Protocol Last Admin: 09/07/17 17:10 Dose: 50 ml Dextrose (Glutose 15) 0 gm PO ONCE PRN; Protocol PRN Reason: Hypoglycemia Protocol Efavirenz/Emtricitabine/Tenofovir (Atripla 600 Mg-200 Mg-300 Mg) 1 tab PO DAILY [facility] Last Admin: 09/10/17 10:40 Dose: 1 tab Famotidine (Pepcid) 20 mg PO DAILY [facility] Last Admin: 09/10/17 10:40 Dose: 20 mg Glucagon (Glucagen Diagnostic Kit) 0 mg IM STAT PRN; Protocol PRN Reason: Hypoglycemia Protocol Hydralazine HCl (Apresoline) 10 mg IVP Q6H PRN PRN Reason: Systolic Blood Pressure Last Admin: 09/09/17 04:13 Dose: 10 mg Valproate Sodium 250 mg/ (Sodium Chloride) 102.5 mls @ 100 mls/hr IVPB DAILY [facility] Last Admin: 09/10/17 10:39 Dose: 100 mls/hr Aztreonam 2 gm/ Sodium (Chloride) 100 mls @ 100 mls/hr IVPB Q8H [facility] Last Admin: 09/10/17 04:35 Dose: 100 mls/hr Vancomycin/Sodium Chloride (Vancomycin 1 Gm/Ns 200 Ml) 1 gm in 200 mls @ 133 mls/hr IVPB Q12H [facility] Stop: 09/10/17 21:01 Last Admin: 09/09/17 08:28 Dose: Not Given Dextrose (Dextrose 5% In Water 1000 Ml) 1,000 mls @ 0 mls/hr IV .Q0M PRN; Protocol; Per Protocol PRN Reason: Hypoglycemia Protocol Fluconazole (Diflucan Iv 200 Mg/100 Ml Ns) 100 mls @ 100 mls/hr IVPB DAILY [facility] Last Admin: 09/10/17 11:12 Dose: 100 mls/hr Insulin Aspart (Novolog) 0 unit SC ACHS [facility] PRN Reason: Protocol Last Admin: 09/10/17 08:20 Dose: Not Given Insulin Detemir (Levemir) 8 unit SC [facility] Levothyroxine Sodium (Synthroid) 125 mcg PO DAILY@0630 [facility] Last Admin: 09/10/17 06:05 Dose: 125 mcg Ondansetron HCl (Zofran Inj) 4 mg IVP Q6H PRN PRN Reason: Nausea/Vomiting Last Admin: 08/27/17 14:44 Dose: 4 mg Potassium Phos/Sodium Phos (Neutra-Phos) 1 pkt PO TID [facility] Last Admin: 09/10/17 10:44 Dose: 1 pkt Sucralfate (Carafate Oral Susp) 1 gm PO ACBHS [facility] Last Admin: 09/10/17 08:43 Dose: 1 gm Trimethoprim/Sulfamethoxazole (Bactrim Ds Tab) 1 tab PO MWF [facility] Last Admin: 09/10/17 08:43 Dose: 1 tab - Labs Labs: 09/10/17 07:07 09/10/17 07:07 PT 11.1 SECONDS (9.7-12.2) 09/08/17 06:26 INR 1.0 09/08/17 06:26 APTT 26 SECONDS (21-34) 09/08/17 06:26 - Constitutional Appears: Cachectic - Head Exam Head Exam: ATRAUMATIC, NORMAL INSPECTION, NORMOCEPHALIC - Neurological Exam Neurological Exam: Alert, Awake, CN II-XII Intact, Oriented x3 Neuro motor strength exam: Left Upper Extremity: 4, Right Upper Extremity: 4, Left Lower Extremity: 4, Right Lower Extremity: 4 Additional comments: Neurological improved from previous examination. She is able to follow commands and have a pleasant conversation. Assessment and Plan (1) Encephalopathy acute Assessment & Plan: Case discussed with Dr. Denney, continue all current medical, physical, and occupational therapies. There is no new recommendations from neurology. Status: Acute
--- NOTE | 2017-09-10 18:01 | CP.PCM.PN ---
Subjective - Date & Time of Evaluation Date of Evaluation: 09/10/17 Time of Evaluation: 09:00 - Subjective Subjective: improving wbc 16k dr yates on board iv rx in progress vanco held due to elevated random levels Objective - Vital Signs/Intake and Output Vital Signs (last 24 hours): Temp Pulse Resp BP Pulse Ox 98.0 F 109 H 20 173/85 H 100 09/10/17 16:00 09/10/17 16:00 09/10/17 16:00 09/10/17 16:00 09/10/17 16:00 Intake and Output: 09/10/17 09/10/17 06:59 18:59 Intake Total 470 520 Output Total 3200 1350 Balance -2730 -830 - Medications Medications: Current Medications Amlodipine Besylate (Norvasc) 5 mg NG DAILY JESSICA Last Admin: 09/10/17 10:40 Dose: 5 mg Aspirin (Ecotrin) 81 mg PO DAILY JESSICA Last Admin: 09/10/17 10:40 Dose: 81 mg Dexamethasone (Decadron Inj) 4 mg IVP Q6H JESSICA Last Admin: 09/10/17 11:19 Dose: 4 mg Dextrose (Dextrose 50% Inj) 0 ml IV STAT PRN; Protocol PRN Reason: Hyglycemia Protocol Last Admin: 09/07/17 17:10 Dose: 50 ml Dextrose (Glutose 15) 0 gm PO ONCE PRN; Protocol PRN Reason: Hypoglycemia Protocol Efavirenz/Emtricitabine/Tenofovir (Atripla 600 Mg-200 Mg-300 Mg) 1 tab PO DAILY JESSICA Last Admin: 09/10/17 10:40 Dose: 1 tab Famotidine (Pepcid) 20 mg PO DAILY JESSICA Last Admin: 09/10/17 10:40 Dose: 20 mg Glucagon (Glucagen Diagnostic Kit) 0 mg IM STAT PRN; Protocol PRN Reason: Hypoglycemia Protocol Hydralazine HCl (Apresoline) 10 mg IVP Q6H PRN PRN Reason: Systolic Blood Pressure Last Admin: 09/09/17 04:13 Dose: 10 mg Valproate Sodium 250 mg/ (Sodium Chloride) 102.5 mls @ 100 mls/hr IVPB DAILY JESSICA Last Admin: 09/10/17 10:39 Dose: 100 mls/hr Aztreonam 2 gm/ Sodium (Chloride) 100 mls @ 100 mls/hr IVPB Q8H JESSICA Last Admin: 09/10/17 12:30 Dose: 100 mls/hr Vancomycin/Sodium Chloride (Vancomycin 1 Gm/Ns 200 Ml) 1 gm in 200 mls @ 133 mls/hr IVPB Q12H [facility] Stop: 09/10/17 21:01 Last Admin: 09/09/17 08:28 Dose: Not Given Dextrose (Dextrose 5% In Water 1000 Ml) 1,000 mls @ 0 mls/hr IV .Q0M PRN; Protocol; Per Protocol PRN Reason: Hypoglycemia Protocol Fluconazole (Diflucan Iv 200 Mg/100 Ml Ns) 100 mls @ 100 mls/hr IVPB DAILY [facility] Last Admin: 09/10/17 11:12 Dose: 100 mls/hr Insulin Aspart (Novolog) 0 unit SC ACHS [facility] PRN Reason: Protocol Last Admin: 09/10/17 11:30 Dose: Not Given Insulin Detemir (Levemir) 8 unit SC HS [facility] Levothyroxine Sodium (Synthroid) 125 mcg PO DAILY@0630 [facility] Last Admin: 09/10/17 06:05 Dose: 125 mcg Ondansetron HCl (Zofran Inj) 4 mg IVP Q6H PRN PRN Reason: Nausea/Vomiting Last Admin: 08/27/17 14:44 Dose: 4 mg Potassium Phos/Sodium Phos (Neutra-Phos) 1 pkt PO TID [facility] Last Admin: 09/10/17 14:58 Dose: 1 pkt Sucralfate (Carafate Oral Susp) 1 gm PO ACBHS [facility] Last Admin: 09/10/17 08:43 Dose: 1 gm Trimethoprim/Sulfamethoxazole (Bactrim Ds Tab) 1 tab PO MWF [facility] Last Admin: 09/10/17 08:43 Dose: 1 tab - Labs Labs: 09/10/17 07:07 09/10/17 07:07 PT 11.1 SECONDS (9.7-12.2) 09/08/17 06:26 INR 1.0 09/08/17 06:26 APTT 26 SECONDS (21-34) 09/08/17 06:26 Assessment and Plan (1) HIV (human immunodeficiency virus infection) Status: Acute (2) HIV (human immunodeficiency virus infection) Status: Acute (3) Encephalopathy acute Status: Acute (4) Leukocytosis Status: Acute
[2017-09-10] MEDS ORDERED: Insulin Detemir 100 units/ml Vial (Levemir) SC SCH (22:00)
[2017-09-11] MEDS: Dexamethasone 4 mg/1 ml IVP SCH ×2 (00:57→06:15)
[2017-09-11] MEDS: Aztreonam 2 GM in Sodium Chloride 0.9% 100 ML IVPB SCH ×3 (04:54→20:00)
[2017-09-11] MEDS: Levothyroxine 125 MCG TAB PO SCH ×2 (06:14→06:24)
--- NOTE | 2017-09-11 06:48 | CP.PCM.PN ---
<Rupesh Sahu - Last Filed: 09/11/17 21:51> Subjective - Date & Time of Evaluation Date of Evaluation: 09/11/17 Time of Evaluation: 06:48 - Subjective Subjective: PGY1 Medicine Note for Dr. Valle Patient seen and examined this morning at bedside. Patient appears to be depressed today. She broke out crying multiple times throughout our exam. Patient is slightly slower responding today compared to yesterday. Objective - Vital Signs/Intake and Output Vital Signs (last 24 hours): Temp Pulse Resp BP Pulse Ox 98.1 F 113 H 20 144/90 96 09/10/17 23:25 09/10/17 23:25 09/10/17 23:25 09/10/17 23:25 09/10/17 23:25 Intake and Output: 09/10/17 09/11/17 18:59 06:59 Intake Total 520 Output Total 1350 2350 Balance -830 -2350 - Medications Medications: Current Medications Amlodipine Besylate (Norvasc) 5 mg NG DAILY JESSICA Last Admin: 09/10/17 10:40 Dose: 5 mg Aspirin (Ecotrin) 81 mg PO DAILY JESSICA Last Admin: 09/10/17 10:40 Dose: 81 mg Dexamethasone (Decadron Inj) 4 mg IVP Q6H [facility] Last Admin: 09/11/17 06:15 Dose: 4 mg Dextrose (Dextrose 50% Inj) 0 ml IV STAT PRN; Protocol PRN Reason: Hyglycemia Protocol Last Admin: 09/07/17 17:10 Dose: 50 ml Dextrose (Glutose 15) 0 gm PO ONCE PRN; Protocol PRN Reason: Hypoglycemia Protocol Efavirenz/Emtricitabine/Tenofovir (Atripla 600 Mg-200 Mg-300 Mg) 1 tab PO DAILY [facility]ESSICA Last Admin: 09/10/17 10:40 Dose: 1 tab Famotidine (Pepcid) 20 mg PO DAILY JESSICA Last Admin: 09/10/17 10:40 Dose: 20 mg Glucagon (Glucagen Diagnostic Kit) 0 mg IM STAT PRN; Protocol PRN Reason: Hypoglycemia Protocol Hydralazine HCl (Apresoline) 10 mg IVP Q6H PRN PRN Reason: Systolic Blood Pressure Last Admin: 09/10/17 22:05 Dose: 10 mg Valproate Sodium 250 mg/ (Sodium Chloride) 102.5 mls @ 100 mls/hr IVPB DAILY [facility] Last Admin: 09/10/17 10:39 Dose: 100 mls/hr Aztreonam 2 gm/ Sodium (Chloride) 100 mls @ 100 mls/hr IVPB Q8H [facility] Last Admin: 09/11/17 04:54 Dose: 100 mls/hr Dextrose (Dextrose 5% In Water 1000 Ml) 1,000 mls @ 0 mls/hr IV .Q0M PRN; Protocol; Per Protocol PRN Reason: Hypoglycemia Protocol Fluconazole (Diflucan Iv 200 Mg/100 Ml Ns) 100 mls @ 100 mls/hr IVPB DAILY [facility] Last Admin: 09/10/17 11:12 Dose: 100 mls/hr Insulin Aspart (Novolog) 0 unit SC ACHS [facility] PRN Reason: Protocol Last Admin: 09/10/17 21:57 Dose: Not Given Insulin Aspart (Novolog) 4 unit SC AC [facility] Insulin Detemir (Levemir) 12 unit SC [facility] Levothyroxine Sodium (Synthroid) 125 mcg PO DAILY@0630 [facility] Last Admin: 09/11/17 06:24 Dose: Not Given Ondansetron HCl (Zofran Inj) 4 mg IVP Q6H PRN PRN Reason: Nausea/Vomiting Last Admin: 08/27/17 14:44 Dose: 4 mg Potassium Phos/Sodium Phos (Neutra-Phos) 1 pkt PO TID [facility] Last Admin: 09/10/17 18:32 Dose: Not Given Sucralfate (Carafate Oral Susp) 1 gm PO ACBHS [facility] Last Admin: 09/10/17 22:07 Dose: 1 gm Trimethoprim/Sulfamethoxazole (Bactrim Ds Tab) 1 tab PO MWF [facility] Last Admin: 09/10/17 08:43 Dose: 1 tab - Labs Labs: 09/10/17 07:07 09/10/17 07:07 PT 11.1 SECONDS (9.7-12.2) 09/08/17 06:26 INR 1.0 09/08/17 06:26 APTT 26 SECONDS (21-34) 09/08/17 06:26 - Constitutional Appears: No Acute Distress, Chronically Ill - Head Exam Head Exam: ATRAUMATIC, NORMOCEPHALIC - Eye Exam Eye Exam: EOMI, Normal appearance - ENT Exam ENT Exam: Mucous Membranes Moist - Respiratory Exam Respiratory Exam: Clear to Ausculation Bilateral, NORMAL BREATHING PATTERN. absent: Accessory Muscle Use, Rales, Wheezes, Respiratory Distress - Cardiovascular Exam Cardiovascular Exam: Tachycardia (110 on monitor), REGULAR RHYTHM, +S1, +S2 - GI/Abdominal Exam GI & Abdominal Exam: Soft, Normal Bowel Sounds. absent: Distended, Firm, Guarding, Rigid - Extremities Exam Extremities Exam: absent: Calf Tenderness, Tenderness Additional comments: scds in place - Neurological Exam Neurological Exam: Alert, Awake - Psychiatric Exam Psychiatric exam: Depressed, Flat Affect Additional comments: Patient started crying randomly at multiple times throughout exam - Skin Skin Exam: Dry, Normal Color, Warm Assessment and Plan - Assessment and Plan (Free Text) Plan: AIDS, acute encephalopathy 09/11: per neuro note, increase valproate 250 mg IVPB to every 12 hours from daily and decrease decadron 4 mg IV every 6 hours to every 12 hours. Will continue all other medical management at this time. Patient started on Glucerna meal supplements due to poor oral intake. 09/10: Vanco trough = 18.65 - Vanco restarted. Awaiting neurology recommendations in regards to LP. Patient mental status is continuing to improve. Continue current medical management. PEG placement on hold until further notice due to return of cognitive function and ability to feed her self. Continue to monitor closely. f/u PT recommendations. 09/09: Pt is AAOx3 today and is much more alert today. Her NG tube was pulled this morning and swallow evaluation was done this morning. Patient showed no signs of aspiration (cough/throat clearing) and was cleared for a regular diet. She is scheduled for a brain MRI this morning to re-evaluate for PML. Patient was not given any sedative for MRI per Dr. Denney because we do not want to negatively affect her cognitive function. Depending on the results, Dr. Denney will determine if a LP is necessary or not. PEG tube placement is still on hold as patient's mental status appears to be improving and may be able to feed herself. 09/08: Per Neuro note, it appears LP is tentatively scheduled for tomorrow, sunday 09/09. Platelet count is 154 today. Patient is more alert and awake, answering questions today. Patient still appears very lethargic and weak. Per GI , PEG tube placement will remain pending for further observation of hospital course. GI would like ID eval for potential infectious complications of PEG tube placement. 09/06: Spoke to Dr. Denney. Given that her platelets have risen, we ordered an LP to be done under fluoro for Friday. 09/05: Patient shakes head yes and no to questions today and actually spoke! When asked where she was, patient responded with, "the hospital." Patient is still very lethargic, but cognition appears to be improving. Will continue to monitor. Patient is still currently receiving tube feedings through the NG tube. Dr. Cervantes re-consulted for PEG tube evaluation. Spoke to Dr. Cervantes about PEG tube evaluation, he requested that someone else be consulted since he has not seen the patient since . Discussed with Dr. Oshea, he requested specifically that Dr. Estrada be consulted for a second GI opinion. Dr. Estrada's fellow Dr. Shah called and informed. Dr. Shah stated that he will see the patient in the morning tomorrow and will plan for PEG placement either friday or friday next week. 09/03: Patient's platelets still too low for LP even after multiple platelet transfusions. Dr. Denney is requesting platelets be >75. Will discuss with Dr. Denney possibility of performing a LP shortly after a platelet transfusion is completed. Will need to be transfused more platelets. Dr. Denney would like to perform LP under anesthesia due to patient's mental status and inability to follow commands properly. 09/01: Patient was unable to be awoken today. She responded to painful stimuli by pulling away and moaning. She was able to move all four extremities. Discussed with patient's that the patient's prognosis is very poor. He states he understands. Patient will likely need a LP to acquire CSF fluid for further eval. Transfused 1 unit of platelets today. f/u EEG discontinued morphine 08/31: She is somulent. Able to open eyes, random slow movements of arms and legs. Not following any commands. She was started on IV decardon yesterday. She will likley need LP to aquire CSF in the future to again test for JAGUAR virus since imaging via MRI is suggesting progressive multifocal leukoencephalopathy. Previous testing of JAGUAR virus were negative. This being said her platelet count is very low, transfusing 1 unit today. Pending hematology evaluation. 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 Neck MRA 08/29/17: No significant stenosis seen in the visualized bilateral common or internal carotid arteries. Mild right ICA proximal stenosis is identified with plaque identified at the right carotid bulb. Widely patent bilateral common carotids but otherwise, as imaged. Symmetric vertebrobasilar circulation. Head MRA 08/29/17: Suboptimal diagnostic quality due to motion degraded images, allowing for this, no occlusion. Apparent narrowing in bilateral M1 segments could be related to motion artifacts. Brain MRI 09/09/17: Diminishing bilateral thalamic signal abnormality though bilateral cerebral white matter signal changes are not significantly changed. No acute intracranial findings Patient potentially had a seizure over night. CT (08/22) was negative for any acute findings. Brain MRI was ordered for f/u. patient has not had any more events since then Neurology Consulted, Dr. Denney --> Help appreciated; states that all changes in AMS are most likely due to AIDS Brain MRI w/o contrast(08/22) - Mild diffuse/confluent nonspecific white matter changes as described. Findings are of uncertain etiology though could represent sequela of HIV encephalopathy. PML not excluded. See above discussion for additional differential diagnostic considerations. Questionable secretions/opacification of exuberantly aerated mastoid air cells ramyfing into the left petrous apex however the possibility apical petrositis or small the left petrous CT apex cholesterol granuloma. Repeat Head CT w/o contrast 08/28/17 - Significant motion artifact limits this exam however interval edema is identified at the right greater than left basal ganglia and thalami as well as the bilateral occipital lobes and the right parietal lobe. Is difficult to determine definitively though this is vasogenic or cytotoxic however embolic infarction is questioned. Given the basal ganglia and thalami being affected focally, and anoxic insult is included in the differential diagnosis or even though there is no global loss of vaca-white matter differentiation and edema in this patient. Infectious or metabolic etiologies are not excluded but are not favored. * EEG ordered for morning of 08/23: This is a probably normal EEG. There was increased beta activity noticed intermittently. This could be a normal finding. No focal slowing no seizure like activity was observed. Correlation with clinical findings is needed. * JAGUAR virus <500 = negative * HLA-B57:01 sensitivity, awaiting results * Started on Depakote 250mg PO daily --> patient unable to swallow, NGT placed and started on valproate 250mg IVP daily AMS 12/26 AIDS Dementia Vs. Opportunistic Infection ID Dr. Meneses --> help appreciated * Continue Diflucan, bactrim * Started Atripla started 08/27/17 - CT head 08/11 - Negative - MRI 08/12 - unremarkable - LDH - 478 - CD4 - 72 (AIDS confirmed) -->repeat 110 - HIV-1 RNA Qnt (RT-PCR) - 5.80 high - Viral Load: Must r/o infectious causes * CMV - IgG > 10; IgM <30; Dennotes previous infection, no acute infection * Crypto - <1:2 * RPR - nonreactive * Toxoplasma - IgG < 7.2; IgM < 8 - Patient started on empiric antibiotic therapy on Wednesday 09/05 with Aztreonam and Vancomyocin due to rising leukocytosis. Leukocytosis improving 20.6 --> 15.8. AIDS 09/09: Continue on Atripla 08/31: On Atripla at this time. This is being crushed and given via NGT * Dr. Meneses recs * Bactrim DS 1 tab PO M/W/F * Atripla [id number](Efavirenz/Emtricitabine/Teno) 1 tab PO daily - script written and placed in chart for pt's to pickler helper and fill, so when patient is discharged to [facility], he will be able to take her medication with her, as [facility] does not usually provide HARRT medications. Dr. Sahu discussed with pt's , Emiliano Hoang, on the phone. He stated he understands and will pickler helper prescription to fill it by 08/28. * Neupogen given 08/25 * HIV screen Positive, CD4 = 72, repeat CD4 = 110 * hep panel negative * Will f/u recs for HARRT therapy upon discharge. * Patient will need to follow up with HIV clinic for continuation of HARRT therapy as out patient. * [facility] - Clinic at [address] [facility], [place], [place] * [facility] - Clinic at [address] [place] [address] Phone Anemia; most likely 2/2 to advanced AIDS 09/08: Hg 9.8; platelets increased to 154 09/06: Platelet count gracia to 130 08/31: Patient's platelet count continues to decrease, conset recived for one unit of platelets to be given * Improved to Hgb of 12.7 from 7.1 - patient given 2 units pRBCs on 08/26/17 ( consent given by , Emiliano Hoang, on phone) * continue to monitor Diabetes hypoglycemia protocol RISS only for now Endo consulted, Dr. Nesha Donaldson; appreciate recs * Levemir 8units SC Q12 * ISS low HgA1C - 7.1 accuchecks q6h Continue to monitor Hyponatremia; resolved * STOPPED medications due to potential s/e of hyponatremia * Zoloft, Trazodone and IV fluids. * Nephro Consult, Dr. Wong - help appreciated, f/u recs * urine sodium 113 --> 43 * urine osmol 502 --> 176 * serum osmol 276 * will continue to monitor Dysphagia; resolved Chest CT * particulate matter, possibly food, identified within the esophageal lumen intermixed with gas. * Incidental 6mm nodule within superior right breast. CXR * no acute cardiopulmonary disease Neck soft tissue CT * Abnormal circumferential thickening noted of the cervical esophagus. findings could be due to reflux esophagitis but esophageal carcinoma is not excluded. GI consulted, Dr. 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 Prophylactic Care * Heparin 5000u sc q8h - DC'ed due to anemia * SCDs for DVT ppx * Pepcid 20 ivp daily * Fall precautions Case discussed with Dr. Tori Goddard Adelina PGY1 <Drew Valle H - Last Filed: 09/12/17 07:34> Objective - Vital Signs/Intake and Output Vital Signs (last 24 hours): Temp Pulse Resp BP Pulse Ox 98 F 89 20 161/91 H 100 09/12/17 04:30 09/12/17 04:30 09/12/17 04:30 09/12/17 04:30 09/12/17 04:30 Intake and Output: 09/12/17 09/12/17 06:59 18:59 Intake Total 450 Output Total 1950 Balance -1500 - Medications Medications: Current Medications Amlodipine Besylate (Norvasc) 5 mg NG DAILY [facility] Last Admin: 09/11/17 09:58 Dose: 5 mg Aspirin (Ecotrin) 81 mg PO DAILY [facility]ESS[facility] Last Admin: 09/11/17 09:59 Dose: 81 mg Dexamethasone (Decadron Inj) 4 mg IV Q12 [facility] Last Admin: 09/11/17 21:38 Dose: 4 mg Dextrose (Dextrose 50% Inj) 0 ml IV STAT PRN; Protocol PRN Reason: Hyglycemia Protocol Last Admin: 09/07/17 17:10 Dose: 50 ml Dextrose (Glutose 15) 0 gm PO ONCE PRN; Protocol PRN Reason: Hypoglycemia Protocol Efavirenz/Emtricitabine/Tenofovir (Atripla 600 Mg-200 Mg-300 Mg) 1 tab PO DAILY JESSICA Last Admin: 09/11/17 09:59 Dose: 1 tab Famotidine (Pepcid) 20 mg PO DAILY [facility]ESSICA Last Admin: 09/11/17 09:58 Dose: 20 mg Glucagon (Glucagen Diagnostic Kit) 0 mg IM STAT PRN; Protocol PRN Reason: Hypoglycemia Protocol Hydralazine HCl (Apresoline) 10 mg IVP Q6H PRN PRN Reason: Systolic Blood Pressure Last Admin: 09/10/17 22:05 Dose: 10 mg Aztreonam 2 gm/ Sodium (Chloride) 100 mls @ 100 mls/hr IVPB Q8H [facility] Last Admin: 09/12/17 03:28 Dose: 100 mls/hr Dextrose (Dextrose 5% In Water 1000 Ml) 1,000 mls @ 0 mls/hr IV .Q0M PRN; Protocol; Per Protocol PRN Reason: Hypoglycemia Protocol Fluconazole (Diflucan Iv 200 Mg/100 Ml Ns) 100 mls @ 100 mls/hr IVPB DAILY [facility] Last Admin: 09/11/17 11:15 Dose: 100 mls/hr Valproate Sodium 250 mg/ (Sodium Chloride) 102.5 mls @ 0 mls/hr IVPB Q12 [facility]ESSICA PRN Reason: Per Protocol Last Admin: 09/11/17 21:39 Dose: 100 mls/hr Insulin Aspart (Novolog) 0 unit SC ACHS [facility] PRN Reason: Protocol Last Admin: 09/11/17 21:48 Dose: Not Given Insulin Aspart (Novolog) 4 unit SC AC [facility] Last Admin: 09/11/17 17:30 Dose: 4 unit Insulin Detemir (Levemir) 12 unit SC HS [facility] Last Admin: 09/11/17 21:39 Dose: 12 unit Levothyroxine Sodium (Synthroid) 125 mcg PO DAILY@0630 [facility] Last Admin: 09/11/17 06:24 Dose: Not Given Ondansetron HCl (Zofran Inj) 4 mg IVP Q6H PRN PRN Reason: Nausea/Vomiting Last Admin: 08/27/17 14:44 Dose: 4 mg Potassium Phos/Sodium Phos (Neutra-Phos) 1 pkt PO TID [facility] Last Admin: 09/11/17 18:04 Dose: 1 pkt Sucralfate (Carafate Oral Susp) 1 gm PO ACBHS [facility] Last Admin: 09/12/17 06:29 Dose: 1 gm Trimethoprim/Sulfamethoxazole (Bactrim Ds Tab) 1 tab PO MWF [facility] Last Admin: 09/10/17 08:43 Dose: 1 tab - Labs Labs: 09/12/17 06:37 09/12/17 06:37 PT 11.1 SECONDS (9.7-12.2) 09/08/17 06:26 INR 1.0 09/08/17 06:26 APTT 26 SECONDS (21-34) 09/08/17 06:26 Attending/Attestation - Attestation I have personally seen and examined this patient.: Yes I have fully participated in the care of the patient.: Yes I have reviewed all pertinent clinical information, including history, physical exam and plan: Yes Notes (Text): 09/12/17 07:34 Medical attending: Patient was seen and examined by me, agree with the above note by medical case worker. Today when we saw the patient is very sad, as well as crying, we asked her what was happening she refused to tell us what was happening. I spent some time bedside just to try to see what happened that she didn't want to say why. RN was concerned since this was an abrupt change as well. Yesterday she was very cheerful and plesant affect. The patient was increased on depakote and also decreased on IV solumedrol to BID thank you Drew Valle
[2017-09-11] MEDS: (Novolog) Insulin Aspart, Recombinant 100 u/ml 10 ml vial SC SCH ×7 (07:30→21:48)
[2017-09-11 07:31] LABS: BASO % 0.2 % (0.0-2.0); HEMATOCRIT 28.6 % (34.0-47.0); LYMPH % 7.4 % (20.0-40.0); MEAN CELL VOLUME 84.8 fL (81.0-99.0); MEAN CORPUSCULAR HEMOGLOBIN 29.2 pg (27.0-31.0); MEAN CORPUSCULAR HGB CONC 34.5 g/dL (33.0-37.0); MONO # 0.9 K/uL (0.0-0.8); MONO % 6.7 % (0.0-10.0); PLATELET COUNT 295 K/uL (130-400); RED CELL DISTRIBUTION WIDTH 14.5 % (11.5-14.5); WHITE BLOOD COUNT 13.6 K/uL (4.8-10.8)
[2017-09-11 07:40] LABS: CHLORIDE 98 mmol/L (98-107)
[2017-09-11 07:41] LABS: SODIUM 127 mmol/L (132-148)
[2017-09-11 07:43] LABS: ALKALINE PHOSPHATASE 124 U/L (38-126); AST/SGOT 67 U/L (14-36); BILIRUBIN,TOTAL 1.6 mg/dL (0.2-1.3); BLOOD UREA NITROGEN 35 mg/dL (7-17); CARBON DIOXIDE 16 mmol/L (22-30); GFR AFRICAN-AMERICAN > 60; TOTAL PROTEIN 7.9 g/dL (6.3-8.3)
[2017-09-11 07:44] LABS: ALT/SGPT 87 U/L (9-52); CALCIUM 9.4 mg/dl (8.6-10.4); GLUCOSE,RANDOM 225 mg/dL (65-105); MAGNESIUM 2.1 mg/dL (1.6-2.3); PHOSPHOROUS 4.6 mg/dL (2.5-4.5)
--- NOTE | 2017-09-11 07:44 | CP.PCM.PN ---
Subjective - Date & Time of Evaluation Date of Evaluation: 09/11/17 Time of Evaluation: 07:40 - Subjective Subjective: Ms. Morel was seen and examined at the bedside. She is alert, but with episode of crying. She is unable to inform staff the cause of her crying spell. She is with a right hand mitten for patient safety. She denies any pain, headache, dizziness, lightheadedness, nausea, vomiting. She is not in any kind of distress. There was no untoward events overnight. Objective - Vital Signs/Intake and Output Vital Signs (last 24 hours): Temp Pulse Resp BP Pulse Ox 98.1 F 113 H 20 144/90 96 09/10/17 23:25 09/10/17 23:25 09/10/17 23:25 09/10/17 23:25 09/10/17 23:25 Intake and Output: 09/11/17 09/11/17 06:59 18:59 Output Total 2350 Balance -2350 - Medications Medications: Current Medications Amlodipine Besylate (Norvasc) 5 mg NG DAILY [facility] Last Admin: 09/10/17 10:40 Dose: 5 mg Aspirin (Ecotrin) 81 mg PO DAILY [facility] Last Admin: 09/10/17 10:40 Dose: 81 mg Dexamethasone (Decadron Inj) 4 mg IV Q12 [facility] Dextrose (Dextrose 50% Inj) 0 ml IV STAT PRN; Protocol PRN Reason: Hyglycemia Protocol Last Admin: 09/07/17 17:10 Dose: 50 ml Dextrose (Glutose 15) 0 gm PO ONCE PRN; Protocol PRN Reason: Hypoglycemia Protocol Efavirenz/Emtricitabine/Tenofovir (Atripla 600 Mg-200 Mg-300 Mg) 1 tab PO DAILY [facility]ESS[facility] Last Admin: 09/10/17 10:40 Dose: 1 tab Famotidine (Pepcid) 20 mg PO DAILY [facility] Last Admin: 09/10/17 10:40 Dose: 20 mg Glucagon (Glucagen Diagnostic Kit) 0 mg IM STAT PRN; Protocol PRN Reason: Hypoglycemia Protocol Hydralazine HCl (Apresoline) 10 mg IVP Q6H PRN PRN Reason: Systolic Blood Pressure Last Admin: 09/10/17 22:05 Dose: 10 mg Aztreonam 2 gm/ Sodium (Chloride) 100 mls @ 100 mls/hr IVPB Q8H [facility] Last Admin: 10/19/17 04:54 Dose: 100 mls/hr Dextrose (Dextrose 5% In Water 1000 Ml) 1,000 mls @ 0 mls/hr IV .Q0M PRN; Protocol; Per Protocol PRN Reason: Hypoglycemia Protocol Fluconazole (Diflucan Iv 200 Mg/100 Ml Ns) 100 mls @ 100 mls/hr IVPB DAILY [facility] Last Admin: 09/10/17 11:12 Dose: 100 mls/hr Valproate Sodium 250 mg/ (Sodium Chloride) 102.5 mls @ 0 mls/hr IVPB Q12 [facility] PRN Reason: Per Protocol Insulin Aspart (Novolog) 0 unit SC ACHS [facility] PRN Reason: Protocol Last Admin: 09/10/17 21:57 Dose: Not Given Insulin Aspart (Novolog) 4 unit SC AC [facility] Insulin Detemir (Levemir) 12 unit SC [facility] Levothyroxine Sodium (Synthroid) 125 mcg PO DAILY@0630 [facility] Last Admin: 09/11/17 06:24 Dose: Not Given Ondansetron HCl (Zofran Inj) 4 mg IVP Q6H PRN PRN Reason: Nausea/Vomiting Last Admin: 08/27/17 14:44 Dose: 4 mg Potassium Phos/Sodium Phos (Neutra-Phos) 1 pkt PO TID [facility] Last Admin: 09/10/17 18:32 Dose: Not Given Sucralfate (Carafate Oral Susp) 1 gm PO ACBHS [facility] Last Admin: 09/10/17 22:07 Dose: 1 gm Trimethoprim/Sulfamethoxazole (Bactrim Ds Tab) 1 tab PO MWF [facility] Last Admin: 09/10/17 08:43 Dose: 1 tab - Labs Labs: 09/11/17 07:11 09/10/17 07:07 PT 11.1 SECONDS (9.7-12.2) 09/08/17 06:26 INR 1.0 09/08/17 06:26 APTT 26 SECONDS (21-34) 09/08/17 06:26 - Constitutional Appears: Cachectic - Head Exam Head Exam: ATRAUMATIC, NORMAL INSPECTION, NORMOCEPHALIC - Neurological Exam Neurological Exam: Alert, Awake, CN II-XII Intact, Oriented x3 Neuro motor strength exam: Left Upper Extremity: 5, Right Upper Extremity: 5, Left Lower Extremity: 5, Right Lower Extremity: 5 Additional comments: She has crying spell this am, but able to answer questions appropriately. She is able to follow commands. Sensation remains intact. Assessment and Plan (1) Encephalopathy acute Assessment & Plan: Case discussed with Dr. Denney, Recommends to increase valproate 250 mg IVPB to every 12 hours from daily and decrease decadron 4 mg IV every 6 hours to every 12 hours. Continue all other medical, physical, and occupational therapies. Status: Acute
[2017-09-11 07:46] LABS: POTASSIUM 5.7 mmol/L (3.6-5.2)
[2017-09-11] MEDS: Sucralfate 1 gm/10 ml Oral Susp UD PO SCH ×2 (08:24→21:39)
[2017-09-11] MEDS: Valproate 250 MG in Sodium Chloride 0.9% 100 ML IVPB SCH ×2 (09:56→21:39)
[2017-09-11] MEDS: Potassium & Sodium Phosphate PO SCH ×3 (09:59→18:04)
[2017-09-11] MEDS: Dexamethasone 4 mg/1 ml IV SCH ×2 (09:59→21:38)
[2017-09-11] MEDS: Efavirenz/Emtricitabine/Teno 1 TAB PO SCH (09:59)
[2017-09-11 10:00] LABS: TOTAL CELLS COUNTED 100
[2017-09-11 10:01] LABS: NEUTROPHIL 89 % (50-75)
[2017-09-11] MEDS: Fluconazole IV 200mg/100 ml NS 100 ML IVPB SCH (11:15)
--- NOTE | 2017-09-11 19:29 | PN ---
ENDOCRINOLOGY FOLLOWUP NOTE DATE: LOCATION: Room #654. SUMMARY: This is a 57-year-old female with recent uncontrolled type 1 insulin-dependent diabetes with ongoing IV steroid therapy for management of PML as noted. Her glucose levels today have ranged from 284 to 258 and 304 mg/dL. Her latest chemistries showed a BUN of 35, sodium 127, potassium 5.7, chloride 98, CO2 of 16, glucose , and creatinine 0.9. So, at this time, we will modify once again her basal insulin and increase the Levemir to 12 units subcu at bedtime daily to start tonight. We will also add NovoLog given as 4 units subcu t.i.d. before meals as noted. We will titrate incrementally as indicated to optimize metabolic control. We will follow with you. Nesha Donaldson MD
[2017-09-11] MEDS: Insulin Detemir 100 units/ml Vial (Levemir) SC SCH (21:39)
[2017-09-12] MEDS: Aztreonam 2 GM in Sodium Chloride 0.9% 100 ML IVPB SCH ×3 (03:28→19:01)
[2017-09-12] MEDS: Sucralfate 1 gm/10 ml Oral Susp UD PO SCH ×2 (06:29→21:18)
[2017-09-12 06:46] LABS: BASO % 0.2 % (0.0-2.0); LYMPH # 1.1 K/uL (1.0-4.3); LYMPH % 7.8 % (20.0-40.0); MEAN CELL VOLUME 85.1 fL (81.0-99.0); MEAN CORPUSCULAR HEMOGLOBIN 29.4 pg (27.0-31.0); MEAN CORPUSCULAR HGB CONC 34.6 g/dL (33.0-37.0); MONO # 0.8 K/uL (0.0-0.8); MONO % 5.6 % (0.0-10.0); PLATELET COUNT 282 K/uL (130-400); RED CELL DISTRIBUTION WIDTH 14.3 % (11.5-14.5); WHITE BLOOD COUNT 14.8 K/uL (4.8-10.8)
[2017-09-12 06:56] LABS: CHLORIDE 99 mmol/L (98-107)
[2017-09-12 06:57] LABS: POTASSIUM 3.5 mmol/L (3.6-5.2); SODIUM 131 mmol/L (132-148)
[2017-09-12 06:59] LABS: ALKALINE PHOSPHATASE 121 U/L (38-126); AST/SGOT 30 U/L (14-36); BILIRUBIN,TOTAL 0.5 mg/dL (0.2-1.3); BLOOD UREA NITROGEN 33 mg/dL (7-17); CARBON DIOXIDE 17 mmol/L (22-30); GFR AFRICAN-AMERICAN > 60; GLUCOSE,RANDOM 228 mg/dL (65-105); TOTAL PROTEIN 7.4 g/dL (6.3-8.3)
[2017-09-12 07:00] LABS: ALT/SGPT 90 U/L (9-52); CALCIUM 9.7 mg/dl (8.6-10.4); MAGNESIUM 1.9 mg/dL (1.6-2.3); PHOSPHOROUS 3.7 mg/dL (2.5-4.5)
--- NOTE | 2017-09-12 07:20 | CP.PCM.PN ---
Subjective - Date & Time of Evaluation Date of Evaluation: 09/12/17 Time of Evaluation: 07:17 - Subjective Subjective: Ms. Morel was seen and examined at the bedside. She is alert, oriented x3. She participates in a pleasant conversation. She denies any headache, dizziness, lightheadedness, nausea, or vomiting. She claims of having poor appetite. She is on a glucerna supplemet. She is not in any kind of distress. There is no untoward events overnight. Objective - Vital Signs/Intake and Output Vital Signs (last 24 hours): Temp Pulse Resp BP Pulse Ox 98 F 89 20 161/91 H 100 09/12/17 04:30 09/12/17 04:30 09/12/17 04:30 09/12/17 04:30 09/12/17 04:30 Intake and Output: 09/12/17 09/12/17 06:59 18:59 Intake Total 450 Output Total 1950 Balance -1500 - Medications Medications: Current Medications Amlodipine Besylate (Norvasc) 5 mg NG DAILY [facility] Last Admin: 09/11/17 09:58 Dose: 5 mg Aspirin (Ecotrin) 81 mg PO DAILY [facility] Last Admin: 09/11/17 09:59 Dose: 81 mg Dexamethasone (Decadron Inj) 4 mg IV Q12 [facility] Last Admin: 09/11/17 21:38 Dose: 4 mg Dextrose (Dextrose 50% Inj) 0 ml IV STAT PRN; Protocol PRN Reason: Hyglycemia Protocol Last Admin: 09/07/17 17:10 Dose: 50 ml Dextrose (Glutose 15) 0 gm PO ONCE PRN; Protocol PRN Reason: Hypoglycemia Protocol Efavirenz/Emtricitabine/Tenofovir (Atripla 600 Mg-200 Mg-300 Mg) 1 tab PO DAILY [facility] Last Admin: 09/11/17 09:59 Dose: 1 tab Famotidine (Pepcid) 20 mg PO DAILY [facility] Last Admin: 09/11/17 09:58 Dose: 20 mg Glucagon (Glucagen Diagnostic Kit) 0 mg IM STAT PRN; Protocol PRN Reason: Hypoglycemia Protocol Hydralazine HCl (Apresoline) 10 mg IVP Q6H PRN PRN Reason: Systolic Blood Pressure Last Admin: 09/10/17 22:05 Dose: 10 mg Aztreonam 2 gm/ Sodium (Chloride) 100 mls @ 100 mls/hr IVPB Q8H [facility] Last Admin: 09/12/17 03:28 Dose: 100 mls/hr Dextrose (Dextrose 5% In Water 1000 Ml) 1,000 mls @ 0 mls/hr IV .Q0M PRN; Protocol; Per Protocol PRN Reason: Hypoglycemia Protocol Fluconazole (Diflucan Iv 200 Mg/100 Ml Ns) 100 mls @ 100 mls/hr IVPB DAILY [facility] Last Admin: 09/11/17 11:15 Dose: 100 mls/hr Valproate Sodium 250 mg/ (Sodium Chloride) 102.5 mls @ 0 mls/hr IVPB Q12 [facility] PRN Reason: Per Protocol Last Admin: 09/11/17 21:39 Dose: 100 mls/hr Insulin Aspart (Novolog) 0 unit SC ACHS [facility] PRN Reason: Protocol Last Admin: 09/11/17 21:48 Dose: Not Given Insulin Aspart (Novolog) 4 unit SC AC [facility] Last Admin: 09/11/17 17:30 Dose: 4 unit Insulin Detemir (Levemir) 12 unit SC HS [facility] Last Admin: 09/11/17 21:39 Dose: 12 unit Levothyroxine Sodium (Synthroid) 125 mcg PO DAILY@0630 [facility] Last Admin: 09/11/17 06:24 Dose: Not Given Ondansetron HCl (Zofran Inj) 4 mg IVP Q6H PRN PRN Reason: Nausea/Vomiting Last Admin: 08/27/17 14:44 Dose: 4 mg Potassium Phos/Sodium Phos (Neutra-Phos) 1 pkt PO TID [facility] Last Admin: 09/11/17 18:04 Dose: 1 pkt Sucralfate (Carafate Oral Susp) 1 gm PO ACBHS [facility] Last Admin: 09/12/17 06:29 Dose: 1 gm Trimethoprim/Sulfamethoxazole (Bactrim Ds Tab) 1 tab PO MWF [facility] Last Admin: 09/10/17 08:43 Dose: 1 tab - Labs Labs: 09/12/17 06:37 09/12/17 06:37 PT 11.1 SECONDS (9.7-12.2) 09/08/17 06:26 INR 1.0 09/08/17 06:26 APTT 26 SECONDS (21-34) 09/08/17 06:26 - Constitutional Appears: Cachectic - Head Exam Head Exam: ATRAUMATIC, NORMAL INSPECTION, NORMOCEPHALIC - Neurological Exam Neurological Exam: Alert, Awake, CN II-XII Intact, Oriented x3 Neuro motor strength exam: Left Upper Extremity: 5, Right Upper Extremity: 5, Left Lower Extremity: 5, Right Lower Extremity: 5 Additional comments: She follows commands and respond to questions appropriately. Sensation intact. Assessment and Plan (1) Encephalopathy acute Assessment & Plan: Case discussed with Dr. Denney, continue all current medical, physical, and occupational therapies. There is no new recommendations from neurology. Status: Acute
[2017-09-12] MEDS: (Novolog) Insulin Aspart, Recombinant 100 u/ml 10 ml vial SC SCH ×7 (07:42→22:54)
[2017-09-12] MEDS: Levothyroxine 125 MCG TAB PO SCH (07:48)
--- NOTE | 2017-09-12 07:58 | CP.PCM.PN ---
<Rupesh Sahu - Last Filed: 09/12/17 15:14> Subjective - Date & Time of Evaluation Date of Evaluation: 09/12/17 Time of Evaluation: 07:54 - Subjective Subjective: PGY1 Medicine Note for Dr. Valle Patient seen and examined this morning at bedside. Patient is still slightly slower today responding to questions compared to a couple of days ago, but is still answering questions appropriately. Patient states she feels well and has no complaints. Denies to be in any pain. Objective - Vital Signs/Intake and Output Vital Signs (last 24 hours): Temp Pulse Resp BP Pulse Ox 98 F 89 20 161/91 H 100 09/12/17 04:30 09/12/17 04:30 09/12/17 04:30 09/12/17 04:30 09/12/17 04:30 Intake and Output: 09/12/17 09/12/17 06:59 18:59 Intake Total 450 Output Total 1950 Balance -1500 - Medications Medications: Current Medications Amlodipine Besylate (Norvasc) 5 mg NG DAILY [facility] Last Admin: 09/11/17 09:58 Dose: 5 mg Aspirin (Ecotrin) 81 mg PO DAILY [facility] Last Admin: 09/11/17 09:59 Dose: 81 mg Dexamethasone (Decadron Inj) 4 mg IV Q12 [facility] Last Admin: 09/11/17 21:38 Dose: 4 mg Dextrose (Dextrose 50% Inj) 0 ml IV STAT PRN; Protocol PRN Reason: Hyglycemia Protocol Last Admin: 09/07/17 17:10 Dose: 50 ml Dextrose (Glutose 15) 0 gm PO ONCE PRN; Protocol PRN Reason: Hypoglycemia Protocol Efavirenz/Emtricitabine/Tenofovir (Atripla 600 Mg-200 Mg-300 Mg) 1 tab PO DAILY [facility] Last Admin: 09/11/17 09:59 Dose: 1 tab Famotidine (Pepcid) 20 mg PO DAILY [facility] Last Admin: 09/11/17 09:58 Dose: 20 mg Glucagon (Glucagen Diagnostic Kit) 0 mg IM STAT PRN; Protocol PRN Reason: Hypoglycemia Protocol Hydralazine HCl (Apresoline) 10 mg IVP Q6H PRN PRN Reason: Systolic Blood Pressure Last Admin: 09/10/17 22:05 Dose: 10 mg Aztreonam 2 gm/ Sodium (Chloride) 100 mls @ 100 mls/hr IVPB Q8H [facility] Last Admin: 09/12/17 03:28 Dose: 100 mls/hr Dextrose (Dextrose 5% In Water 1000 Ml) 1,000 mls @ 0 mls/hr IV .Q0M PRN; Protocol; Per Protocol PRN Reason: Hypoglycemia Protocol Fluconazole (Diflucan Iv 200 Mg/100 Ml Ns) 100 mls @ 100 mls/hr IVPB DAILY [facility] Last Admin: 09/11/17 11:15 Dose: 100 mls/hr Valproate Sodium 250 mg/ (Sodium Chloride) 102.5 mls @ 0 mls/hr IVPB Q12 [facility] PRN Reason: Per Protocol Last Admin: 09/11/17 21:39 Dose: 100 mls/hr Insulin Aspart (Novolog) 0 unit SC ACHS [facility] PRN Reason: Protocol Last Admin: 09/12/17 07:42 Dose: Not Given Insulin Aspart (Novolog) 4 unit SC AC [facility] Last Admin: 09/11/17 17:30 Dose: 4 unit Insulin Detemir (Levemir) 12 unit SC HS [facility] Last Admin: 09/11/17 21:39 Dose: 12 unit Levothyroxine Sodium (Synthroid) 125 mcg PO DAILY@0630 [facility] Last Admin: 09/12/17 07:48 Dose: 125 mcg Ondansetron HCl (Zofran Inj) 4 mg IVP Q6H PRN PRN Reason: Nausea/Vomiting Last Admin: 08/27/17 14:44 Dose: 4 mg Potassium Phos/Sodium Phos (Neutra-Phos) 1 pkt PO TID [facility] Last Admin: 09/11/17 18:04 Dose: 1 pkt Sucralfate (Carafate Oral Susp) 1 gm PO ACBHS [facility] Last Admin: 09/12/17 06:29 Dose: 1 gm Trimethoprim/Sulfamethoxazole (Bactrim Ds Tab) 1 tab PO MWF [facility] Last Admin: 09/10/17 08:43 Dose: 1 tab - Labs Labs: 09/12/17 06:37 09/12/17 06:37 PT 11.1 SECONDS (9.7-12.2) 09/08/17 06:26 INR 1.0 09/08/17 06:26 APTT 26 SECONDS (21-34) 09/08/17 06:26 - Constitutional Appears: Non-toxic, No Acute Distress - Head Exam Head Exam: ATRAUMATIC, NORMOCEPHALIC - Eye Exam Eye Exam: EOMI, Normal appearance - ENT Exam ENT Exam: Mucous Membranes Moist - Respiratory Exam Respiratory Exam: Clear to Ausculation Bilateral, NORMAL BREATHING PATTERN. absent: Accessory Muscle Use, Rales, Respiratory Distress - Cardiovascular Exam Cardiovascular Exam: REGULAR RHYTHM, +S1, +S2 - GI/Abdominal Exam GI & Abdominal Exam: Soft, Normal Bowel Sounds. absent: Distended, Firm, Guarding, Rigid, Tenderness - Extremities Exam Extremities Exam: Normal Capillary Refill, Normal Inspection. absent: Calf Tenderness, Pedal Edema - Back Exam Back Exam: absent: CVA tenderness (L), CVA tenderness (R), paraspinal tenderness , vertebral tenderness - Neurological Exam Neurological Exam: Alert, Awake, Oriented x3 - Psychiatric Exam Psychiatric exam: Depressed, Flat Affect Additional comments: Although patient was responding slowly, she was responding appropriately to questions. - Skin Skin Exam: Dry, Normal Color, Warm Assessment and Plan - Assessment and Plan (Free Text) Plan: AIDS, acute encephalopathy 09/12: Continue to monitor patient's cognitive function as we continue to taper down decadron. Patient's mental status was stable compared to yesterday. Neurology has decided to hold off of LP at this time due to the procedure being a greater risk to the patient as we do not think that she could stay still for the duration of the procedure. We do not want to use anesthesia or anything that may alter the patient's cognitive function. 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 09/11: per neuro note, increase valproate 250 mg IVPB to every 12 hours from daily and decrease decadron 4 mg IV every 6 hours to every 12 hours. Will continue all other medical management at this time. Patient started on Glucerna meal supplements due to poor oral intake. 09/10: Vanco trough = 18.65 - Vanco restarted. Awaiting neurology recommendations in regards to LP. Patient mental status is continuing to improve. Continue current medical management. PEG placement on hold until further notice due to return of cognitive function and ability to feed her self. Continue to monitor closely. f/u PT recommendations. 09/09: Pt is AAOx3 today and is much more alert today. Her NG tube was pulled this morning and swallow evaluation was done this morning. Patient showed no signs of aspiration (cough/throat clearing) and was cleared for a regular diet. She is scheduled for a brain MRI this morning to re-evaluate for PML. Patient was not given any sedative for MRI per Dr. Denney because we do not want to negatively affect her cognitive function. Depending on the results, Dr. Denney will determine if a LP is necessary or not. PEG tube placement is still on hold as patient's mental status appears to be improving and may be able to feed herself. 09/08: Per Neuro note, it appears LP is tentatively scheduled for tomorrow, sunday 09/09. Platelet count is 154 today. Patient is more alert and awake, answering questions today. Patient still appears very lethargic and weak. Per GI , PEG tube placement will remain pending for further observation of hospital course. GI would like ID eval for potential infectious complications of PEG tube placement. 09/06: Spoke to Dr. Denney. Given that her platelets have risen, we ordered an LP to be done under fluoro for Friday. 09/05: Patient shakes head yes and no to questions today and actually spoke! When asked where she was, patient responded with, "the hospital." Patient is still very lethargic, but cognition appears to be improving. Will continue to monitor. Patient is still currently receiving tube feedings through the NG tube. Dr. Cervantes re-consulted for PEG tube evaluation. Spoke to Dr. Cervantes about PEG tube evaluation, he requested that someone else be consulted since he has not seen the patient since . Discussed with Dr. Oshea, he requested specifically that Dr. Estrada be consulted for a second GI opinion. Dr. Estrada's fellow Dr. Shah called and informed. Dr. Shah stated that he will see the patient in the morning tomorrow and will plan for PEG placement either friday or friday next week. 09/03: Patient's platelets still too low for LP even after multiple platelet transfusions. Dr. Denney is requesting platelets be >75. Will discuss with Dr. Denney possibility of performing a LP shortly after a platelet transfusion is completed. Will need to be transfused more platelets. Dr. Denney would like to perform LP under anesthesia due to patient's mental status and inability to follow commands properly. 09/01: Patient was unable to be awoken today. She responded to painful stimuli by pulling away and moaning. She was able to move all four extremities. Discussed with patient's that the patient's prognosis is very poor. He states he understands. Patient will likely need a LP to acquire CSF fluid for further eval. Transfused 1 unit of platelets today. f/u EEG discontinued morphine 08/31: She is somulent. Able to open eyes, random slow movements of arms and legs. Not following any commands. She was started on IV decardon yesterday. She will likley need LP to aquire CSF in the future to again test for JAGUAR virus since imaging via MRI is suggesting progressive multifocal leukoencephalopathy. Previous testing of JAGUAR virus were negative. This being said her platelet count is very low, transfusing 1 unit today. Pending hematology evaluation. 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 Neck MRA 08/29/17: No significant stenosis seen in the visualized bilateral common or internal carotid arteries. Mild right ICA proximal stenosis is identified with plaque identified at the right carotid bulb. Widely patent bilateral common carotids but otherwise, as imaged. Symmetric vertebrobasilar circulation. Head MRA 08/29/17: Suboptimal diagnostic quality due to motion degraded images, allowing for this, no occlusion. Apparent narrowing in bilateral M1 segments could be related to motion artifacts. Brain MRI 09/09/17: Diminishing bilateral thalamic signal abnormality though bilateral cerebral white matter signal changes are not significantly changed. No acute intracranial findings Patient potentially had a seizure over night. CT (08/22) was negative for any acute findings. Brain MRI was ordered for f/u. patient has not had any more events since then Neurology Consulted, Dr. Denney --> Help appreciated; states that all changes in AMS are most likely due to AIDS Brain MRI w/o contrast(08/22) - Mild diffuse/confluent nonspecific white matter changes as described. Findings are of uncertain etiology though could represent sequela of HIV encephalopathy. PML not excluded. See above discussion for additional differential diagnostic considerations. Questionable secretions/opacification of exuberantly aerated mastoid air cells ramyfing into the left petrous apex however the possibility apical petrositis or small the left petrous CT apex cholesterol granuloma. Repeat Head CT w/o contrast 08/28/17 - Significant motion artifact limits this exam however interval edema is identified at the right greater than left basal ganglia and thalami as well as the bilateral occipital lobes and the right parietal lobe. Is difficult to determine definitively though this is vasogenic or cytotoxic however embolic infarction is questioned. Given the basal ganglia and thalami being affected focally, and anoxic insult is included in the differential diagnosis or even though there is no global loss of vaca-white matter differentiation and edema in this patient. Infectious or metabolic etiologies are not excluded but are not favored. * EEG ordered for morning of 08/23: This is a probably normal EEG. There was increased beta activity noticed intermittently. This could be a normal finding. No focal slowing no seizure like activity was observed. Correlation with clinical findings is needed. 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 Opportunistic Infection ID Dr. Meneses --> help appreciated * Continue Diflucan, bactrim * Started Atripla started 08/27/17 - CT head 08/11 - Negative - MRI 08/12 - unremarkable - LDH - 478 - CD4 - 72 (AIDS confirmed) -->repeat 110 - HIV-1 RNA Qnt (RT-PCR) - 5.80 high - Viral Load: Must r/o infectious causes * CMV - IgG > 10; IgM <30; Dennotes previous infection, no acute infection * Crypto - <1:2 * RPR - nonreactive * Toxoplasma - IgG < 7.2; IgM < 8 - Patient started on empiric antibiotic therapy on Wednesday 09/05 with Aztreonam and Vancomyocin due to rising leukocytosis. Leukocytosis improving 20.6 --> 15.8. AIDS 09/09: Continue on Atripla 08/31: On Atripla at this time. This is being crushed and given via NGT * Dr. Meneses recs * Bactrim DS 1 tab PO M/W/F * Atripla [id number](Efavirenz/Emtricitabine/Teno) 1 tab PO daily - script written and placed in chart for pt's to hand picker and fill, so when patient is discharged to [facility], he will be able to take her medication with her, as [facility] does not usually provide HARRT medications. Dr. Sahu discussed with pt's , Emiliano Hoang, on the phone. He stated he understands and will hand picker prescription to fill it by 08/28. * Neupogen given 08/25 * HIV screen Positive, CD4 = 72, repeat CD4 = 110 * hep panel negative * Will f/u recs for HARRT therapy upon discharge. * Patient will need to follow up with HIV clinic for continuation of HARRT therapy as out patient. * [facility] - Clinic at [address], [place] * [facility] - Clinic at [address], [place] Phone Anemia; most likely 2/2 to advanced AIDS 09/08: Hg 9.8; platelets increased to 154 09/06: Platelet count gracia to 130 08/31: Patient's platelet count continues to decrease, conset recived for one unit of platelets to be given * Improved to Hgb of 12.7 from 7.1 - patient given 2 units pRBCs on 08/26/17 ( consent given by , Emiliano Hoang, on phone) * continue to monitor Diabetes hypoglycemia protocol RISS only for now Endo consulted, Dr. Nesha Donaldson; appreciate recs * Levemir 8units SC Q12 * ISS low HgA1C - 7.1 accuchecks q6h Continue to monitor Hyponatremia; resolved * STOPPED medications due to potential s/e of hyponatremia * Zoloft, Trazodone and IV fluids. * Nephro Consult, Dr. Wong - help appreciated, f/u recs * urine sodium 113 --> 43 * urine osmol 502 --> 176 * serum osmol 276 * will continue to monitor Dysphagia; resolved Chest CT * particulate matter, possibly food, identified within the esophageal lumen intermixed with gas. * Incidental 6mm nodule within superior right breast. CXR * no acute cardiopulmonary disease Neck soft tissue CT * Abnormal circumferential thickening noted of the cervical esophagus. findings could be due to reflux esophagitis but esophageal carcinoma is not excluded. GI consulted, Dr. 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 Prophylactic Care * Heparin 5000u sc q8h - DC'ed due to anemia * SCDs for DVT ppx * Pepcid 20 ivp daily * Fall precautions Case discussed with Dr. Tori Sahu PGY1 <Drew Valle H - Last Filed: 09/12/17 15:40> Objective - Vital Signs/Intake and Output Vital Signs (last 24 hours): Temp Pulse Resp BP Pulse Ox 97.9 F 78 20 160/91 H 100 09/12/17 07:30 09/12/17 07:30 09/12/17 07:30 09/12/17 07:30 09/12/17 07:30 Intake and Output: 09/12/17 09/12/17 06:59 18:59 Intake Total 450 Output Total 1950 Balance -1500 - Medications Medications: Current Medications Amlodipine Besylate (Norvasc) 5 mg NG DAILY [facility] Last Admin: 09/12/17 10:22 Dose: 5 mg Aspirin (Ecotrin) 81 mg PO DAILY [facility] Last Admin: 09/12/17 10:28 Dose: 81 mg Dexamethasone (Decadron Inj) 4 mg IV Q12 [facility] Last Admin: 09/12/17 10:15 Dose: 4 mg Dextrose (Dextrose 50% Inj) 0 ml IV STAT PRN; Protocol PRN Reason: Hyglycemia Protocol Last Admin: 09/07/17 17:10 Dose: 50 ml Dextrose (Glutose 15) 0 gm PO ONCE PRN; Protocol PRN Reason: Hypoglycemia Protocol Last Admin: 09/12/17 11:25 Dose: 15 gm Efavirenz/Emtricitabine/Tenofovir (Atripla 600 Mg-200 Mg-300 Mg) 1 tab PO DAILY [facility] Last Admin: 09/12/17 10:19 Dose: 1 tab Famotidine (Pepcid) 20 mg PO DAILY [facility] Last Admin: 09/12/17 10:15 Dose: 20 mg Glucagon (Glucagen Diagnostic Kit) 0 mg IM STAT PRN; Protocol PRN Reason: Hypoglycemia Protocol Hydralazine HCl (Apresoline) 10 mg IVP Q6H PRN PRN Reason: Systolic Blood Pressure Last Admin: 09/10/17 22:05 Dose: 10 mg Aztreonam 2 gm/ Sodium (Chloride) 100 mls @ 100 mls/hr IVPB Q8H [facility] Last Admin: 09/12/17 03:28 Dose: 100 mls/hr Dextrose (Dextrose 5% In Water 1000 Ml) 1,000 mls @ 0 mls/hr IV .Q0M PRN; Protocol; Per Protocol PRN Reason: Hypoglycemia Protocol Fluconazole (Diflucan Iv 200 Mg/100 Ml Ns) 100 mls @ 100 mls/hr IVPB DAILY [facility] Last Admin: 09/12/17 11:20 Dose: 100 mls/hr Valproate Sodium 250 mg/ (Sodium Chloride) 102.5 mls @ 0 mls/hr IVPB Q12 [facility] PRN Reason: Per Protocol Last Admin: 09/12/17 10:22 Dose: 100 mls/hr Insulin Aspart (Novolog) 0 unit SC ACHS [facility] PRN Reason: Protocol Last Admin: 09/12/17 07:42 Dose: Not Given Insulin Aspart (Novolog) 4 unit SC AC [facility] Last Admin: 09/12/17 08:16 Dose: 4 unit Insulin Detemir (Levemir) 12 unit SC HS [facility] Last Admin: 09/11/17 21:39 Dose: 12 unit Levothyroxine Sodium (Synthroid) 125 mcg PO DAILY@0630 [facility] Last Admin: 09/12/17 07:48 Dose: 125 mcg Ondansetron HCl (Zofran Inj) 4 mg IVP Q6H PRN PRN Reason: Nausea/Vomiting Last Admin: 08/27/17 14:44 Dose: 4 mg Potassium Phos/Sodium Phos (Neutra-Phos) 1 pkt PO TID [facility] Last Admin: 09/12/17 10:16 Dose: 1 pkt Sucralfate (Carafate Oral Susp) 1 gm PO ACBHS [facility] Last Admin: 09/12/17 06:29 Dose: 1 gm Trimethoprim/Sulfamethoxazole (Bactrim Ds Tab) 1 tab PO MWF [facility] Last Admin: 09/12/17 09:45 Dose: 1 tab - Labs Labs: 09/12/17 06:37 09/12/17 06:37 PT 11.1 SECONDS (9.7-12.2) 09/08/17 06:26 INR 1.0 09/08/17 06:26 APTT 26 SECONDS (21-34) 09/08/17 06:26 Attending/Attestation - Attestation I have personally seen and examined this patient.: Yes I have fully participated in the care of the patient.: Yes I have reviewed all pertinent clinical information, including history, physical exam and plan: Yes Notes (Text): 09/12/17 15:40 Medical attending: Patient was seen and examined by me, agrees the above note by biomedical equipment specialist. Today the patient appeared to be more awake and alert than yesterday, she was also not agitated or crying today. She denied having any pain, denied having any shortness of breath. Order to exchange the Pink catheter is that one has been in for some time now. Also we inspected the area on her sacrum - the nurses a vertically placed topical medical area to try to prevent open bedsores. As mentioned previously the patient was decreased on IV Decadron to twice a day Thank you very much Drew Valle
[2017-09-12 08:48] LABS: NEUTROPHIL 90 % (50-75); TOTAL CELLS COUNTED 100
[2017-09-12] MEDS: Tmp-Smz 800 mg-160 mg DS Tab PO SCH (09:45)
[2017-09-12] MEDS: Dexamethasone 4 mg/1 ml IV SCH ×2 (10:15→21:18)
[2017-09-12] MEDS: Potassium & Sodium Phosphate PO SCH ×3 (10:16→18:06)
[2017-09-12] MEDS: Efavirenz/Emtricitabine/Teno 1 TAB PO SCH (10:19)
[2017-09-12] MEDS: Valproate 250 MG in Sodium Chloride 0.9% 100 ML IVPB SCH ×2 (10:22→21:19)
[2017-09-12] MEDS: Fluconazole IV 200mg/100 ml NS 100 ML IVPB SCH (11:20)
[2017-09-12] MEDS: Insulin Detemir 100 units/ml Vial (Levemir) SC SCH (22:43)
--- NOTE | 2017-09-13 00:25 | PN ---
ENDO FOLLOWUP NOTE DATE: LOCATION: Room 654. SUBJECTIVE: This is a 57-year-old female with recent uncontrolled type 1 insulin dependent diabetes, extremes of glycemic fluctuation and is now being followed closely for metabolic management. Her glucose levels today have ranged from 57 to 239 and 393 mg/dL. A symptomatic drop of her glucose levels occurred at the lunch time today with a value of 59 mg/dL. Her latest chemistry showed a BUN of 33, sodium 131, potassium 3.5, chloride 99, CO2 of 17, glucose 228, and creatinine 0.9. So, at this time, we will modify her basal insulin and lower the Levemir to 12 units subcutaneous at bedtime daily as ordered. We will continue the NovoLog given as 4 units subcutaneous t.i.d. before meals as given. We will titrate incrementally as indicated to optimize metabolic control. We will follow. Nesha Donaldson MD
[2017-09-13] MEDS: Aztreonam 2 GM in Sodium Chloride 0.9% 100 ML IVPB SCH ×3 (03:26→20:10)
[2017-09-13 06:25] LABS: BASO % 0.2 % (0.0-2.0); EOS % 0.1 % (0.0-4.0); HEMATOCRIT 25.8 % (34.0-47.0); LYMPH # 0.8 K/uL (1.0-4.3); LYMPH % 7.9 % (20.0-40.0); MEAN CELL VOLUME 86.4 fL (81.0-99.0); MEAN CORPUSCULAR HEMOGLOBIN 30.2 pg (27.0-31.0); MEAN PLATELET VOLUME 8.3 fL (7.2-11.7); MONO # 0.7 K/uL (0.0-0.8); MONO % 6.4 % (0.0-10.0); PLATELET COUNT 261 K/uL (130-400); RED CELL DISTRIBUTION WIDTH 14.6 % (11.5-14.5); WHITE BLOOD COUNT 10.3 K/uL (4.8-10.8)
[2017-09-13] MEDS: Sucralfate 1 gm/10 ml Oral Susp UD PO SCH ×2 (06:41→21:42)
[2017-09-13] MEDS: Levothyroxine 125 MCG TAB PO SCH (06:41)
[2017-09-13 07:48] LABS: CHLORIDE 99 mmol/L (98-107); POTASSIUM 3.8 mmol/L (3.6-5.2); SODIUM 128 mmol/L (132-148)
[2017-09-13 07:50] LABS: GFR AFRICAN-AMERICAN > 60
[2017-09-13 07:51] LABS: ALB/GLOB RATIO 1.3 (1.0-2.1); ALKALINE PHOSPHATASE 125 U/L (38-126); ALT/SGPT 74 U/L (9-52); AST/SGOT 26 U/L (14-36); BILIRUBIN,TOTAL 0.5 mg/dL (0.2-1.3); BLOOD UREA NITROGEN 28 mg/dL (7-17); CALCIUM 9.1 mg/dl (8.6-10.4); CARBON DIOXIDE 16 mmol/L (22-30); GLUCOSE,RANDOM 319 mg/dL (65-105); PHOSPHOROUS 3.9 mg/dL (2.5-4.5); TOTAL PROTEIN 6.4 g/dL (6.3-8.3)
[2017-09-13] MEDS: (Novolog) Insulin Aspart, Recombinant 100 u/ml 10 ml vial SC SCH ×7 (08:07→21:53)
[2017-09-13 08:29] LABS: NEUTROPHIL 87 % (50-75); TOTAL CELLS COUNTED 100
[2017-09-13 08:31] LABS: LARGE PLATELETS PRESENT
--- NOTE | 2017-09-13 09:16 | CP.PCM.PN ---
<Rupesh Sahu - Last Filed: 09/13/17 09:13> Subjective - Date & Time of Evaluation Date of Evaluation: 09/13/17 Time of Evaluation: 09:13 - Subjective Subjective: PGY1 Medicine Note for Dr. Valle Patient seen and examined at bedside this morning. Patient is awake and in a good mood. She is responding to questions appropriately and has more energy today compared to the previous days. She states she feels well and does not have any pain. "I am feeling much better." Objective - Vital Signs/Intake and Output Vital Signs (last 24 hours): Temp Pulse Resp BP Pulse Ox 97.7 F 93 H 18 158/92 H 100 09/13/17 07:35 09/13/17 07:35 09/13/17 07:35 09/13/17 07:35 09/13/17 07:35 Intake and Output: 09/13/17 09/13/17 06:59 18:59 Intake Total 500 Output Total 3000 Balance -2500 - Medications Medications: Current Medications Amlodipine Besylate (Norvasc) 5 mg NG DAILY [facility] Last Admin: 09/12/17 10:22 Dose: 5 mg Aspirin (Ecotrin) 81 mg PO DAILY [facility] Last Admin: 09/12/17 10:28 Dose: 81 mg Dexamethasone (Decadron Inj) 4 mg IV Q12 [facility] Last Admin: 09/12/17 21:18 Dose: 4 mg Dextrose (Dextrose 50% Inj) 0 ml IV STAT PRN; Protocol PRN Reason: Hyglycemia Protocol Last Admin: 09/07/17 17:10 Dose: 50 ml Dextrose (Glutose 15) 0 gm PO ONCE PRN; Protocol PRN Reason: Hypoglycemia Protocol Last Admin: 09/12/17 11:25 Dose: 15 gm Efavirenz/Emtricitabine/Tenofovir (Atripla 600 Mg-200 Mg-300 Mg) 1 tab PO DAILY [facility] Last Admin: 09/12/17 10:19 Dose: 1 tab Famotidine (Pepcid) 20 mg PO DAILY [facility] Last Admin: 09/12/17 10:15 Dose: 20 mg Glucagon (Glucagen Diagnostic Kit) 0 mg IM STAT PRN; Protocol PRN Reason: Hypoglycemia Protocol Hydralazine HCl (Apresoline) 10 mg IVP Q6H PRN PRN Reason: Systolic Blood Pressure Last Admin: 09/10/17 22:05 Dose: 10 mg Aztreonam 2 gm/ Sodium (Chloride) 100 mls @ 100 mls/hr IVPB Q8H [facility] Last Admin: 09/13/17 03:26 Dose: 100 mls/hr Dextrose (Dextrose 5% In Water 1000 Ml) 1,000 mls @ 0 mls/hr IV .Q0M PRN; Protocol; Per Protocol PRN Reason: Hypoglycemia Protocol Fluconazole (Diflucan Iv 200 Mg/100 Ml Ns) 100 mls @ 100 mls/hr IVPB DAILY [facility] Last Admin: 09/12/17 11:20 Dose: 100 mls/hr Valproate Sodium 250 mg/ (Sodium Chloride) 102.5 mls @ 0 mls/hr IVPB Q12 [facility] PRN Reason: Per Protocol Last Admin: 09/12/17 21:19 Dose: 100 mls/hr Insulin Aspart (Novolog) 0 unit SC ACHS [facility] PRN Reason: Protocol Last Admin: 09/13/17 08:07 Dose: 2 unit Insulin Aspart (Novolog) 4 unit SC AC [facility] Last Admin: 09/13/17 08:08 Dose: 4 unit Insulin Detemir (Levemir) 12 unit SC HS [facility] Last Admin: 09/12/17 22:43 Dose: 12 unit Levothyroxine Sodium (Synthroid) 125 mcg PO DAILY@0630 [facility] Last Admin: 09/13/17 06:41 Dose: 125 mcg Ondansetron HCl (Zofran Inj) 4 mg IVP Q6H PRN PRN Reason: Nausea/Vomiting Last Admin: 08/27/17 14:44 Dose: 4 mg Potassium Phos/Sodium Phos (Neutra-Phos) 1 pkt PO TID [facility] Last Admin: 09/12/17 18:06 Dose: 1 pkt Sucralfate (Carafate Oral Susp) 1 gm PO ACBHS [facility] Last Admin: 09/13/17 06:41 Dose: 1 gm Trimethoprim/Sulfamethoxazole (Bactrim Ds Tab) 1 tab PO MWF [facility] Last Admin: 09/12/17 09:45 Dose: 1 tab - Labs Labs: 09/13/17 06:07 09/13/17 06:07 PT 11.1 SECONDS (9.7-12.2) 09/08/17 06:26 INR 1.0 09/08/17 06:26 APTT 26 SECONDS (21-34) 09/08/17 06:26 - Constitutional Appears: Non-toxic, No Acute Distress - Head Exam Head Exam: ATRAUMATIC, NORMOCEPHALIC - Eye Exam Eye Exam: EOMI, Normal appearance, PERRL - ENT Exam ENT Exam: Mucous Membranes Moist - Respiratory Exam Respiratory Exam: Clear to Ausculation Bilateral, NORMAL BREATHING PATTERN. absent: Accessory Muscle Use, Rales, Wheezes, Respiratory Distress - Cardiovascular Exam Cardiovascular Exam: REGULAR RHYTHM, +S1, +S2 - GI/Abdominal Exam GI & Abdominal Exam: Soft, Normal Bowel Sounds. absent: Distended, Firm, Guarding, Rigid, Tenderness - Extremities Exam Extremities Exam: Normal Inspection. absent: Calf Tenderness, Pedal Edema - Neurological Exam Neurological Exam: Alert, Awake, Oriented x3 - Psychiatric Exam Psychiatric exam: Normal Affect, Normal Mood - Skin Skin Exam: Dry, Normal Color, Warm Assessment and Plan - Assessment and Plan (Free Text) Plan: AIDS, acute encephalopathy 09/13: Patient's mental status is remaining stable. Her energy level is slightly improved today. Will follow surgery recommendations for decadron taper. Pink catheter was changed yesterday. The patient's sacral area was examined yesterday to discover the start of a sacral decubitus ulcer. Nurses currently applying medi-honey to affected area. Patient is to continue with PT to attempt to gain strength to get out of bed. Continue current medical management for now. 09/12: Continue to monitor patient's cognitive function as we continue to taper down decadron. Patient's mental status was stable compared to yesterday. Neurology has decided to hold off of LP at this time due to the procedure being a greater risk to the patient as we do not think that she could stay still for the duration of the procedure. We do not want to use anesthesia or anything that may alter the patient's cognitive function. 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 09/11: per neuro note, increase valproate 250 mg IVPB to every 12 hours from daily and decrease decadron 4 mg IV every 6 hours to every 12 hours. Will continue all other medical management at this time. Patient started on Glucerna meal supplements due to poor oral intake. 09/10: Vanco trough = 18.65 - Vanco restarted. Awaiting neurology recommendations in regards to LP. Patient mental status is continuing to improve. Continue current medical management. PEG placement on hold until further notice due to return of cognitive function and ability to feed her self. Continue to monitor closely. f/u PT recommendations. 09/09: Pt is AAOx3 today and is much more alert today. Her NG tube was pulled this morning and swallow evaluation was done this morning. Patient showed no signs of aspiration (cough/throat clearing) and was cleared for a regular diet. She is scheduled for a brain MRI this morning to re-evaluate for PML. Patient was not given any sedative for MRI per Dr. Denney because we do not want to negatively affect her cognitive function. Depending on the results, Dr. Denney will determine if a LP is necessary or not. PEG tube placement is still on hold as patient's mental status appears to be improving and may be able to feed herself. 09/08: Per Neuro note, it appears LP is tentatively scheduled for tomorrow, sunday 09/09. Platelet count is 154 today. Patient is more alert and awake, answering questions today. Patient still appears very lethargic and weak. Per GI , PEG tube placement will remain pending for further observation of hospital course. GI would like ID eval for potential infectious complications of PEG tube placement. 09/06: Spoke to Dr. Denney. Given that her platelets have risen, we ordered an LP to be done under fluoro for Friday. 09/05: Patient shakes head yes and no to questions today and actually spoke! When asked where she was, patient responded with, "the hospital." Patient is still very lethargic, but cognition appears to be improving. Will continue to monitor. Patient is still currently receiving tube feedings through the NG tube. Dr. Cervantes re-consulted for PEG tube evaluation. Spoke to Dr. Cervantes about PEG tube evaluation, he requested that someone else be consulted since he has not seen the patient since . Discussed with Dr. Oshea, he requested specifically that Dr. Estrada be consulted for a second GI opinion. Dr. Estrada's fellow Dr. Shah called and informed. Dr. Shah stated that he will see the patient in the morning tomorrow and will plan for PEG placement either friday or friday next week. 09/03: Patient's platelets still too low for LP even after multiple platelet transfusions. Dr. Denney is requesting platelets be >75. Will discuss with Dr. Denney possibility of performing a LP shortly after a platelet transfusion is completed. Will need to be transfused more platelets. Dr. Denney would like to perform LP under anesthesia due to patient's mental status and inability to follow commands properly. 09/01: Patient was unable to be awoken today. She responded to painful stimuli by pulling away and moaning. She was able to move all four extremities. Discussed with patient's that the patient's prognosis is very poor. He states he understands. Patient will likely need a LP to acquire CSF fluid for further eval. Transfused 1 unit of platelets today. f/u EEG discontinued morphine 08/31: She is somulent. Able to open eyes, random slow movements of arms and legs. Not following any commands. She was started on IV decardon yesterday. She will likley need LP to aquire CSF in the future to again test for JAGUAR virus since imaging via MRI is suggesting progressive multifocal leukoencephalopathy. Previous testing of JAGUAR virus were negative. This being said her platelet count is very low, transfusing 1 unit today. Pending hematology evaluation. 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 Neck MRA 08/29/17: No significant stenosis seen in the visualized bilateral common or internal carotid arteries. Mild right ICA proximal stenosis is identified with plaque identified at the right carotid bulb. Widely patent bilateral common carotids but otherwise, as imaged. Symmetric vertebrobasilar circulation. Head MRA 08/29/17: Suboptimal diagnostic quality due to motion degraded images, allowing for this, no occlusion. Apparent narrowing in bilateral M1 segments could be related to motion artifacts. Brain MRI 09/09/17: Diminishing bilateral thalamic signal abnormality though bilateral cerebral white matter signal changes are not significantly changed. No acute intracranial findings Patient potentially had a seizure over night. CT (08/22) was negative for any acute findings. Brain MRI was ordered for f/u. patient has not had any more events since then Neurology Consulted, Dr. Denney --> Help appreciated; states that all changes in AMS are most likely due to AIDS Brain MRI w/o contrast(08/22) - Mild diffuse/confluent nonspecific white matter changes as described. Findings are of uncertain etiology though could represent sequela of HIV encephalopathy. PML not excluded. See above discussion for additional differential diagnostic considerations. Questionable secretions/opacification of exuberantly aerated mastoid air cells ramyfing into the left petrous apex however the possibility apical petrositis or small the left petrous CT apex cholesterol granuloma. Repeat Head CT w/o contrast 08/28/17 - Significant motion artifact limits this exam however interval edema is identified at the right greater than left basal ganglia and thalami as well as the bilateral occipital lobes and the right parietal lobe. Is difficult to determine definitively though this is vasogenic or cytotoxic however embolic infarction is questioned. Given the basal ganglia and thalami being affected focally, and anoxic insult is included in the differential diagnosis or even though there is no global loss of vaca-white matter differentiation and edema in this patient. Infectious or metabolic etiologies are not excluded but are not favored. * EEG ordered for morning of 08/23: This is a probably normal EEG. There was increased beta activity noticed intermittently. This could be a normal finding. No focal slowing no seizure like activity was observed. Correlation with clinical findings is needed. 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 Opportunistic Infection ID Dr. Meneses --> help appreciated * Continue Diflucan, bactrim * Started Atripla started 08/27/17 - CT head 08/11 - Negative - MRI 08/12 - unremarkable - LDH - 478 - CD4 - 72 (AIDS confirmed) -->repeat 110 - HIV-1 RNA Qnt (RT-PCR) - 5.80 high - Viral Load: Must r/o infectious causes * CMV - IgG > 10; IgM <30; Dennotes previous infection, no acute infection * Crypto - <1:2 * RPR - nonreactive * Toxoplasma - IgG < 7.2; IgM < 8 - Patient started on empiric antibiotic therapy on Wednesday 09/05 with Aztreonam and Vancomyocin due to rising leukocytosis. Leukocytosis improving 20.6 --> 15.8. AIDS 09/09: Continue on Atripla 08/31: On Atripla at this time. This is being crushed and given via NGT * Dr. Meneses recs * Bactrim DS 1 tab PO M// * Atripla [id number](Efavirenz/Emtricitabine/Teno) 1 tab PO daily - script written and placed in chart for pt's to cone picker and fill, so when patient is discharged to [facility], he will be able to take her medication with her, as [facility] does not usually provide HARRT medications. Dr. Sahu discussed with pt's , Emiliano Hoang, on the phone. He stated he understands and will cone picker prescription to fill it by 08/28. * Neupogen given 08/25 * HIV screen Positive, CD4 = 72, repeat CD4 = 110 * hep panel negative * Will f/u recs for HARRT therapy upon discharge. * Patient will need to follow up with HIV clinic for continuation of HARRT therapy as out patient. * [facility] - Clinic at [address], [place] * [facility] - Clinic at [address], [place] Phone Anemia; most likely 2/2 to advanced AIDS 09/08: Hg 9.8; platelets increased to 154 09/06: Platelet count gracia to 130 08/31: Patient's platelet count continues to decrease, conset recived for one unit of platelets to be given * Improved to Hgb of 12.7 from 7.1 - patient given 2 units pRBCs on 08/26/17 ( consent given by , Emiliano Hoang, on phone) * continue to monitor Diabetes hypoglycemia protocol RISS only for now Endo consulted, Dr. Nesha Donaldson; appreciate recs * Levemir 8units SC Q12 * ISS low HgA1C - 7.1 accuchecks q6h Continue to monitor Hyponatremia; resolved * STOPPED medications due to potential s/e of hyponatremia * Zoloft, Trazodone and IV fluids. * Nephro Consult, Dr. Wong - help appreciated, f/u recs * urine sodium 113 --> 43 * urine osmol 502 --> 176 * serum osmol 276 * will continue to monitor Dysphagia; resolved Chest CT * particulate matter, possibly food, identified within the esophageal lumen intermixed with gas. * Incidental 6mm nodule within superior right breast. CXR * no acute cardiopulmonary disease Neck soft tissue CT * Abnormal circumferential thickening noted of the cervical esophagus. findings could be due to reflux esophagitis but esophageal carcinoma is not excluded. GI consulted, Dr. 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 Prophylactic Care * Heparin 5000u sc q8h - DC'ed due to anemia * SCDs for DVT ppx * Pepcid 20 ivp daily * Fall precautions DISPO: Once patient is stable, she has been approved for placement at [place] per case management. Case discussed with Dr. Tori Goddard Adelina PGY1 <Drew Valle H - Last Filed: 09/13/17 11:44> Objective - Vital Signs/Intake and Output Vital Signs (last 24 hours): Temp Pulse Resp BP Pulse Ox 97.7 F 93 H 18 158/92 H 100 09/13/17 07:35 09/13/17 08:00 09/13/17 07:35 09/13/17 07:35 09/13/17 07:35 Intake and Output: 09/13/17 09/13/17 06:59 18:59 Intake Total 500 Output Total 3000 Balance -2500 - Medications Medications: Current Medications Amlodipine Besylate (Norvasc) 5 mg NG DAILY [facility] Last Admin: 09/13/17 09:17 Dose: 5 mg Aspirin (Ecotrin) 81 mg PO DAILY [facility] Last Admin: 09/13/17 09:17 Dose: 81 mg Dexamethasone (Decadron Inj) 4 mg IV Q12 [facility] Last Admin: 09/13/17 09:27 Dose: 4 mg Dextrose (Dextrose 50% Inj) 0 ml IV STAT PRN; Protocol PRN Reason: Hyglycemia Protocol Last Admin: 09/07/17 17:10 Dose: 50 ml Dextrose (Glutose 15) 0 gm PO ONCE PRN; Protocol PRN Reason: Hypoglycemia Protocol Last Admin: 09/12/17 11:25 Dose: 15 gm Efavirenz/Emtricitabine/Tenofovir (Atripla 600 Mg-200 Mg-300 Mg) 1 tab PO DAILY [facility] Last Admin: 09/13/17 09:17 Dose: 1 tab Famotidine (Pepcid) 20 mg PO DAILY [facility] Last Admin: 09/13/17 09:17 Dose: 20 mg Glucagon (Glucagen Diagnostic Kit) 0 mg IM STAT PRN; Protocol PRN Reason: Hypoglycemia Protocol Aztreonam 2 gm/ Sodium (Chloride) 100 mls @ 100 mls/hr IVPB Q8H [facility] Last Admin: 09/13/17 03:26 Dose: 100 mls/hr Dextrose (Dextrose 5% In Water 1000 Ml) 1,000 mls @ 0 mls/hr IV .Q0M PRN; Protocol; Per Protocol PRN Reason: Hypoglycemia Protocol Fluconazole (Diflucan Iv 200 Mg/100 Ml Ns) 100 mls @ 100 mls/hr IVPB DAILY [facility] Last Admin: 09/13/17 09:19 Dose: 100 mls/hr Valproate Sodium 250 mg/ (Sodium Chloride) 102.5 mls @ 0 mls/hr IVPB Q12 [facility] PRN Reason: Per Protocol Last Admin: 09/13/17 09:25 Dose: 100 mls/hr Insulin Aspart (Novolog) 0 unit SC ACHS [facility] PRN Reason: Protocol Last Admin: 09/13/17 08:07 Dose: 2 unit Insulin Aspart (Novolog) 4 unit SC AC [facility] Last Admin: 09/13/17 08:08 Dose: 4 unit Insulin Detemir (Levemir) 12 unit SC HS [facility] Last Admin: 09/12/17 22:43 Dose: 12 unit Levothyroxine Sodium (Synthroid) 125 mcg PO DAILY@0630 [facility] Last Admin: 09/13/17 06:41 Dose: 125 mcg Ondansetron HCl (Zofran Inj) 4 mg IVP Q6H PRN PRN Reason: Nausea/Vomiting Last Admin: 08/27/17 14:44 Dose: 4 mg Potassium Phos/Sodium Phos (Neutra-Phos) 1 pkt PO TID [facility] Last Admin: 09/13/17 09:17 Dose: 1 pkt Sucralfate (Carafate Oral Susp) 1 gm PO ACBHS [facility] Last Admin: 09/13/17 06:41 Dose: 1 gm Trimethoprim/Sulfamethoxazole (Bactrim Ds Tab) 1 tab PO MWF [facility] Last Admin: 09/12/17 09:45 Dose: 1 tab - Labs Labs: 09/13/17 06:07 09/13/17 06:07 PT 11.1 SECONDS (9.7-12.2) 09/08/17 06:26 INR 1.0 09/08/17 06:26 APTT 26 SECONDS (21-34) 09/08/17 06:26 Attending/Attestation - Attestation I have personally seen and examined this patient.: Yes I have fully participated in the care of the patient.: Yes I have reviewed all pertinent clinical information, including history, physical exam and plan: Yes Notes (Text): 09/13/17 11:38 Medical Attending: Patient was seen and examined by me. Agree with the above note by the resident The patient was reportedly very pleasant, cooperative, and eating well this morning. However by the time I saw the patient at about 10:30 AM she appeared very upset. She reportedly was upset about the food and coffee not being brought in time As mentioned previously I am told the LP is now put on hold. The patient is still on decadron IV and it was recently decreased She is being contined on HARRT medication as well. Hopefully she can be DC at some point this week. thank you Drew Valle
[2017-09-13] MEDS: Efavirenz/Emtricitabine/Teno 1 TAB PO SCH (09:17)
[2017-09-13] MEDS: Potassium & Sodium Phosphate PO SCH ×3 (09:17→18:07)
[2017-09-13] MEDS: Fluconazole IV 200mg/100 ml NS 100 ML IVPB SCH (09:19)
[2017-09-13] MEDS: Valproate 250 MG in Sodium Chloride 0.9% 100 ML IVPB SCH ×2 (09:25→21:41)
[2017-09-13] MEDS: Dexamethasone 4 mg/1 ml IV SCH ×2 (09:27→21:42)
--- NOTE | 2017-09-13 13:37 | PN ---
ENDOCRINOLOGY FOLLOWUP NOTE DATE: LOCATION: Room #654. SUBJECTIVE: This is a 57-year-old female with recent uncontrolled type 1 insulin-dependent diabetes, now being followed closely for metabolic management. Her glycemic levels are fluctuating, but improved and the latest glucose levels have ranged from 255 to 305 mg/dL. LABORATORY DATA: Her latest chemistry showed a BUN of 28, sodium 128, potassium 3.8, chloride 99, CO2 of 16, glucose 319, and creatinine 1.0. ASSESSMENT AND PLAN: She still has ongoing IV steroid therapy as given. We will continue the same basal and bolus insulin regimen as she is still fluctuating because of the variability of her oral intake. We will continue the Levemir given as 12 units subcu at bedtime daily and NovoLog given as 4 units subcu t.i.d. before meals as ordered. We will titrate incremental as indicated to optimize metabolic control. We will follow. Nesha Donaldson MD
[2017-09-13] MEDS ORDERED: Vancomycin 1 gm/NS 200 ml 1 GM/200 ML BAG IVPB SCH (14:00)
[2017-09-13] MEDS: Vancomycin 1 gm/NS 200 ml 1 GM/200 ML BAG IVPB SCH (16:37)
[2017-09-13] MEDS: Insulin Detemir 100 units/ml Vial (Levemir) SC SCH (21:42)
[2017-09-14] MEDS: Aztreonam 2 GM in Sodium Chloride 0.9% 100 ML IVPB SCH ×3 (04:30→19:45)
[2017-09-14] MEDS: Levothyroxine 125 MCG TAB PO SCH (06:25)
[2017-09-14] MEDS: Sucralfate 1 gm/10 ml Oral Susp UD PO SCH ×2 (06:30→21:37)
[2017-09-14 07:20] LABS: BASO % 0.3 % (0.0-2.0); EOS % 0.1 % (0.0-4.0); HEMATOCRIT 25.9 % (34.0-47.0); LYMPH % 9.1 % (20.0-40.0); MEAN CELL VOLUME 85.5 fL (81.0-99.0); MEAN CORPUSCULAR HEMOGLOBIN 29.8 pg (27.0-31.0); MEAN CORPUSCULAR HGB CONC 34.9 g/dL (33.0-37.0); MONO # 0.4 K/uL (0.0-0.8); PLATELET COUNT 267 K/uL (130-400); RED CELL DISTRIBUTION WIDTH 14.8 % (11.5-14.5); WHITE BLOOD COUNT 11.3 K/uL (4.8-10.8)
[2017-09-14] MEDS: (Novolog) Insulin Aspart, Recombinant 100 u/ml 10 ml vial SC SCH ×7 (07:43→21:37)
[2017-09-14 07:59] LABS: CHLORIDE 98 mmol/L (98-107); SODIUM 128 mmol/L (132-148)
[2017-09-14 08:00] LABS: POTASSIUM 4.6 mmol/L (3.6-5.2)
[2017-09-14 08:01] LABS: GFR AFRICAN-AMERICAN > 60
[2017-09-14 08:02] LABS: ALB/GLOB RATIO 1.3 (1.0-2.1); ALKALINE PHOSPHATASE 119 U/L (38-126); AST/SGOT 38 U/L (14-36); BILIRUBIN,TOTAL 0.9 mg/dL (0.2-1.3); BLOOD UREA NITROGEN 26 mg/dL (7-17); CARBON DIOXIDE 19 mmol/L (22-30); GLUCOSE,RANDOM 169 mg/dL (65-105); PHOSPHOROUS 3.9 mg/dL (2.5-4.5); TOTAL PROTEIN 6.9 g/dL (6.3-8.3)
[2017-09-14 08:03] LABS: ALT/SGPT 60 U/L (9-52); CALCIUM 9.2 mg/dl (8.6-10.4); MAGNESIUM 1.9 mg/dL (1.6-2.3)
[2017-09-14 09:22] LABS: BASOPHIL 1 % (0-2); NEUTROPHIL 83 % (50-75); TOTAL CELLS COUNTED 100
[2017-09-14 09:24] LABS: LARGE PLATELETS PRESENT
[2017-09-14] MEDS: Valproate 250 MG in Sodium Chloride 0.9% 100 ML IVPB SCH ×2 (10:07→21:38)
[2017-09-14] MEDS: Fluconazole IV 200mg/100 ml NS 100 ML IVPB SCH (10:11)
[2017-09-14] MEDS: Potassium & Sodium Phosphate PO SCH ×3 (10:11→17:24)
[2017-09-14] MEDS: Efavirenz/Emtricitabine/Teno 1 TAB PO SCH (10:11)
[2017-09-14] MEDS: Dexamethasone 4 mg/1 ml IV SCH ×2 (10:14→21:37)
--- NOTE | 2017-09-14 10:19 | PN ---
ENDOCRINOLOGY FOLLOWUP NOTE LOCATION: Room #654. SUBJECTIVE: This is a 57-year-old female with recent uncontrolled type 1 insulin-dependent diabetes, now being followed closely for metabolic management. Her glycemic levels are fluctuating, but much improved at this time and the latest chemistries, however, showed a BUN of 28, sodium 128, potassium 3.8, chloride 99, CO2 of 16, glucose 219, and creatinine 1.0. So at this time because of the very variable oral intake of the patient, we will continue the lose-dose basal and bolus insulin regimen as ordered. We will continue the Levemir given at 12 units at bedtime and Novolog given at 4 units t.i.d. before meals as ordered. We will titrate obtain serial chemistries and supplement accordingly as needed. Nesha Donaldson MD
[2017-09-14] MEDS: Vancomycin 1 gm/NS 200 ml 1 GM/200 ML BAG IVPB SCH (15:31)
--- NOTE | 2017-09-14 15:42 | CP.PCM.PN ---
Subjective - Date & Time of Evaluation Date of Evaluation: 09/14/17 Time of Evaluation: 15:42 - Subjective Subjective: PGY1 Medicine Note for Dr. Valle Patient seen and examined at bedside this morning. Patient has a lot more energy this morning. She is smiling this morning and states "I am just thankful to have another day on this earth." Patient denies and pain. States she has no complaints at this time. Objective - Vital Signs/Intake and Output Vital Signs (last 24 hours): Temp Pulse Resp BP Pulse Ox 98.1 F 99 H 18 158/87 H 100 09/14/17 07:35 09/14/17 08:00 09/14/17 07:35 09/14/17 07:35 09/14/17 07:35 Intake and Output: 09/14/17 09/14/17 06:59 18:59 Intake Total 868 Output Total 2050 850 Balance -5472 -850 - Medications Medications: Current Medications Amlodipine Besylate (Norvasc) 5 mg NG DAILY [facility] Last Admin: 09/14/17 10:11 Dose: 5 mg Aspirin (Ecotrin) 81 mg PO DAILY [facility] Last Admin: 09/14/17 10:11 Dose: 81 mg Dexamethasone (Decadron Inj) 4 mg IV Q12 [facility] Last Admin: 09/14/17 10:14 Dose: 4 mg Dextrose (Dextrose 50% Inj) 0 ml IV STAT PRN; Protocol PRN Reason: Hyglycemia Protocol Last Admin: 09/07/17 17:10 Dose: 50 ml Dextrose (Glutose 15) 0 gm PO ONCE PRN; Protocol PRN Reason: Hypoglycemia Protocol Last Admin: 09/12/17 11:25 Dose: 15 gm Efavirenz/Emtricitabine/Tenofovir (Atripla 600 Mg-200 Mg-300 Mg) 1 tab PO DAILY [facility] Last Admin: 09/14/17 10:11 Dose: 1 tab Glucagon (Glucagen Diagnostic Kit) 0 mg IM STAT PRN; Protocol PRN Reason: Hypoglycemia Protocol Aztreonam 2 gm/ Sodium (Chloride) 100 mls @ 100 mls/hr IVPB Q8H [facility] Last Admin: 09/14/17 11:22 Dose: 100 mls/hr Fluconazole (Diflucan Iv 200 Mg/100 Ml Ns) 100 mls @ 100 mls/hr IVPB DAILY [facility] Last Admin: 09/14/17 10:11 Dose: 100 mls/hr Valproate Sodium 250 mg/ (Sodium Chloride) 102.5 mls @ 0 mls/hr IVPB Q12 [facility] PRN Reason: Per Protocol Last Admin: 09/14/17 10:07 Dose: 100 mls/hr Vancomycin/Sodium Chloride (Vancomycin 1 Gm/Ns 200 Ml) 1 gm in 200 mls @ 133.333 mls/hr IVPB Q24H [facility] Last Admin: 09/14/17 15:31 Dose: 133.333 mls/hr Insulin Aspart (Novolog) 0 unit SC ACHS [facility] PRN Reason: Protocol Last Admin: 09/14/17 12:40 Dose: 2 unit Insulin Aspart (Novolog) 4 unit SC AC [facility] Last Admin: 09/14/17 12:40 Dose: 4 unit Insulin Detemir (Levemir) 12 unit SC HS [facility] Last Admin: 09/13/17 21:42 Dose: 12 unit Levothyroxine Sodium (Synthroid) 125 mcg PO DAILY@0630 [facility] Last Admin: 09/14/17 06:25 Dose: 125 mcg Ondansetron HCl (Zofran Inj) 4 mg IVP Q6H PRN PRN Reason: Nausea/Vomiting Last Admin: 08/27/17 14:44 Dose: 4 mg Potassium Phos/Sodium Phos (Neutra-Phos) 1 pkt PO TID [facility] Last Admin: 09/14/17 14:04 Dose: 1 pkt Sucralfate (Carafate Oral Susp) 1 gm PO ACS [facility] Last Admin: 09/14/17 06:30 Dose: 1 gm Trimethoprim/Sulfamethoxazole (Bactrim Ds Tab) 1 tab PO MWF [facility] Last Admin: 09/12/17 09:45 Dose: 1 tab - Labs Labs: 09/14/17 07:12 09/14/17 07:12 PT 11.1 SECONDS (9.7-12.2) 09/08/17 06:26 INR 1.0 09/08/17 06:26 APTT 26 SECONDS (21-34) 09/08/17 06:26 - Constitutional Appears: Non-toxic, No Acute Distress - Head Exam Head Exam: ATRAUMATIC, NORMOCEPHALIC - Eye Exam Eye Exam: EOMI, Normal appearance - ENT Exam ENT Exam: Mucous Membranes Moist - Neck Exam Neck Exam: absent: Lymphadenopathy, Tenderness - Respiratory Exam Respiratory Exam: Clear to Ausculation Bilateral, NORMAL BREATHING PATTERN. absent: Chest Wall Tenderness, Rales, Wheezes, Respiratory Distress - Cardiovascular Exam Cardiovascular Exam: REGULAR RHYTHM, +S1, +S2 - GI/Abdominal Exam GI & Abdominal Exam: Soft, Normal Bowel Sounds. absent: Distended, Firm, Guarding, Rigid, Tenderness - Extremities Exam Extremities Exam: Normal Capillary Refill, Normal Inspection. absent: Calf Tenderness, Pedal Edema - Back Exam Back Exam: absent: CVA tenderness (L), CVA tenderness (R), paraspinal tenderness , tenderness, vertebral tenderness - Neurological Exam Neurological Exam: Alert, Awake, Oriented x3 - Psychiatric Exam Psychiatric exam: Normal Affect, Normal Mood - Skin Skin Exam: Dry, Normal Color, Warm Assessment and Plan - Assessment and Plan (Free Text) Plan: AIDS, acute encephalopathy 09/14: Patient has been stable over the weekend, no calls. Energy level is improving. Continue to have PT coming and working with the patient. Follow neuro recs on deacdron taper. Look to discharge to rehab once patient has improved strength. Continue medical management at this time. Spoke with patient' s son, Twan, on Thursday 09/13. He was given an update and informed that we will not be performing a LP on the patient at this time due to risk outweighing benefits at this time. Informed him that we will look to discharge patient to rehab center, [facility], once patient is stable. 09/13: Patient's mental status is remaining stable. Her energy level is slightly improved today. Will follow surgery recommendations for decadron taper. Pink catheter was changed yesterday. The patient's sacral area was examined yesterday to discover the start of a sacral decubitus ulcer. Nurses currently applying medi-honey to affected area. Patient is to continue with PT to attempt to gain strength to get out of bed. Continue current medical management for now. 09/12: Continue to monitor patient's cognitive function as we continue to taper down decadron. Patient's mental status was stable compared to yesterday. Neurology has decided to hold off of LP at this time due to the procedure being a greater risk to the patient as we do not think that she could stay still for the duration of the procedure. We do not want to use anesthesia or anything that may alter the patient's cognitive function. 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 09/11: per neuro note, increase valproate 250 mg IVPB to every 12 hours from daily and decrease decadron 4 mg IV every 6 hours to every 12 hours. Will continue all other medical management at this time. Patient started on Glucerna meal supplements due to poor oral intake. 09/10: Vanco trough = 18.65 - Vanco restarted. Awaiting neurology recommendations in regards to LP. Patient mental status is continuing to improve. Continue current medical management. PEG placement on hold until further notice due to return of cognitive function and ability to feed her self. Continue to monitor closely. f/u PT recommendations. 09/09: Pt is AAOx3 today and is much more alert today. Her NG tube was pulled this morning and swallow evaluation was done this morning. Patient showed no signs of aspiration (cough/throat clearing) and was cleared for a regular diet. She is scheduled for a brain MRI this morning to re-evaluate for PML. Patient was not given any sedative for MRI per Dr. Denney because we do not want to negatively affect her cognitive function. Depending on the results, Dr. Denney will determine if a LP is necessary or not. PEG tube placement is still on hold as patient's mental status appears to be improving and may be able to feed herself. 09/08: Per Neuro note, it appears LP is tentatively scheduled for tomorrow, sunday 09/09. Platelet count is 154 today. Patient is more alert and awake, answering questions today. Patient still appears very lethargic and weak. Per GI , PEG tube placement will remain pending for further observation of hospital course. GI would like ID eval for potential infectious complications of PEG tube placement. 09/06: Spoke to Dr. Denney. Given that her platelets have risen, we ordered an LP to be done under fluoro for Friday. 09/05: Patient shakes head yes and no to questions today and actually spoke! When asked where she was, patient responded with, "the hospital." Patient is still very lethargic, but cognition appears to be improving. Will continue to monitor. Patient is still currently receiving tube feedings through the NG tube. Dr. Cervantes re-consulted for PEG tube evaluation. Spoke to Dr. Cervantes about PEG tube evaluation, he requested that someone else be consulted since he has not seen the patient since . Discussed with Dr. Oshea, he requested specifically that Dr. Estrada be consulted for a second GI opinion. Dr. Estrada's fellow Dr. Shah called and informed. Dr. Shah stated that he will see the patient in the morning tomorrow and will plan for PEG placement either friday or friday next week. 09/03: Patient's platelets still too low for LP even after multiple platelet transfusions. Dr. Denney is requesting platelets be >75. Will discuss with Dr. Denney possibility of performing a LP shortly after a platelet transfusion is completed. Will need to be transfused more platelets. Dr. Denney would like to perform LP under anesthesia due to patient's mental status and inability to follow commands properly. 09/01: Patient was unable to be awoken today. She responded to painful stimuli by pulling away and moaning. She was able to move all four extremities. Discussed with patient's that the patient's prognosis is very poor. He states he understands. Patient will likely need a LP to acquire CSF fluid for further eval. Transfused 1 unit of platelets today. f/u EEG discontinued morphine 08/31: She is somulent. Able to open eyes, random slow movements of arms and legs. Not following any commands. She was started on IV decardon yesterday. She will likley need LP to aquire CSF in the future to again test for JAGUAR virus since imaging via MRI is suggesting progressive multifocal leukoencephalopathy. Previous testing of JAGUAR virus were negative. This being said her platelet count is very low, transfusing 1 unit today. Pending hematology evaluation. 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 Neck MRA 08/29/17: No significant stenosis seen in the visualized bilateral common or internal carotid arteries. Mild right ICA proximal stenosis is identified with plaque identified at the right carotid bulb. Widely patent bilateral common carotids but otherwise, as imaged. Symmetric vertebrobasilar circulation. Head MRA 08/29/17: Suboptimal diagnostic quality due to motion degraded images, allowing for this, no occlusion. Apparent narrowing in bilateral M1 segments could be related to motion artifacts. Brain MRI 09/09/17: Diminishing bilateral thalamic signal abnormality though bilateral cerebral white matter signal changes are not significantly changed. No acute intracranial findings Patient potentially had a seizure over night. CT (08/22) was negative for any acute findings. Brain MRI was ordered for f/u. patient has not had any more events since then Neurology Consulted, Dr. Denney --> Help appreciated; states that all changes in AMS are most likely due to AIDS Brain MRI w/o contrast(08/22) - Mild diffuse/confluent nonspecific white matter changes as described. Findings are of uncertain etiology though could represent sequela of HIV encephalopathy. PML not excluded. See above discussion for additional differential diagnostic considerations. Questionable secretions/opacification of exuberantly aerated mastoid air cells ramyfing into the left petrous apex however the possibility apical petrositis or small the left petrous CT apex cholesterol granuloma. Repeat Head CT w/o contrast 08/28/17 - Significant motion artifact limits this exam however interval edema is identified at the right greater than left basal ganglia and thalami as well as the bilateral occipital lobes and the right parietal lobe. Is difficult to determine definitively though this is vasogenic or cytotoxic however embolic infarction is questioned. Given the basal ganglia and thalami being affected focally, and anoxic insult is included in the differential diagnosis or even though there is no global loss of vaca-white matter differentiation and edema in this patient. Infectious or metabolic etiologies are not excluded but are not favored. * EEG ordered for morning of 08/23: This is a probably normal EEG. There was increased beta activity noticed intermittently. This could be a normal finding. No focal slowing no seizure like activity was observed. Correlation with clinical findings is needed. 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 Opportunistic Infection ID Dr. Meneses --> help appreciated * Continue Diflucan, bactrim * Started Atripla started 08/27/17 - CT head 08/11 - Negative - MRI 08/12 - unremarkable - LDH - 478 - CD4 - 72 (AIDS confirmed) -->repeat 110 - HIV-1 RNA Qnt (RT-PCR) - 5.80 high - Viral Load: Must r/o infectious causes * CMV - IgG > 10; IgM <30; Dennotes previous infection, no acute infection * Crypto - <1:2 * RPR - nonreactive * Toxoplasma - IgG < 7.2; IgM < 8 - Patient started on empiric antibiotic therapy on Wednesday 09/05 with Aztreonam and Vancomyocin due to rising leukocytosis. Leukocytosis improving 20.6 --> 15.8. AIDS 09/09: Continue on Atripla 08/31: On Atripla at this time. This is being crushed and given via NGT * Dr. Meneses recs * Bactrim DS 1 tab PO M/W/F * Atripla [id number](Efavirenz/Emtricitabine/Teno) 1 tab PO daily - script written and placed in chart for pt's to burr picker and fill, so when patient is discharged to [facility], he will be able to take her medication with her, as [facility] does not usually provide HARRT medications. Dr. Sahu discussed with pt's , Emiliano Hoang, on the phone. He stated he understands and will burr picker prescription to fill it by 08/28. * Neupogen given 08/25 * HIV screen Positive, CD4 = 72, repeat CD4 = 110 * hep panel negative * Will f/u recs for HARRT therapy upon discharge. * Patient will need to follow up with HIV clinic for continuation of HARRT therapy as out patient. * [facility] - Clinic at [address], [place] * [facility] - Clinic at [address] [place], [place] Phone Anemia; most likely 2/2 to advanced AIDS 09/08: Hg 9.8; platelets increased to 154 09/06: Platelet count gracia to 130 08/31: Patient's platelet count continues to decrease, conset recived for one unit of platelets to be given * Improved to Hgb of 12.7 from 7.1 - patient given 2 units pRBCs on 08/26/17 ( consent given by , Emiliano Hoang, on phone) * continue to monitor Diabetes hypoglycemia protocol RISS only for now Endo consulted, Dr. Nesha Donaldson; appreciate recs * Levemir 8units SC Q12 * ISS low HgA1C - 7.1 accuchecks q6h Continue to monitor Hyponatremia; resolved * STOPPED medications due to potential s/e of hyponatremia * Zoloft, Trazodone and IV fluids. * Nephro Consult, Dr. Wong - help appreciated, f/u recs * urine sodium 113 --> 43 * urine osmol 502 --> 176 * serum osmol 276 * will continue to monitor Dysphagia; resolved Chest CT * particulate matter, possibly food, identified within the esophageal lumen intermixed with gas. * Incidental 6mm nodule within superior right breast. CXR * no acute cardiopulmonary disease Neck soft tissue CT * Abnormal circumferential thickening noted of the cervical esophagus. findings could be due to reflux esophagitis but esophageal carcinoma is not excluded. GI consulted, Dr. 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 Prophylactic Care * Heparin 5000u sc q8h - DC'ed due to anemia * SCDs for DVT ppx * Pepcid 20 ivp daily * Fall precautions DISPO: Once patient is stable, she has been approved for placement at [facility] per case management. Case discussed with Dr. Tori Goddard Adelina PGY1
[2017-09-14] MEDS: Insulin Detemir 100 units/ml Vial (Levemir) SC SCH (21:36)
[2017-09-15] MEDS: Aztreonam 2 GM in Sodium Chloride 0.9% 100 ML IVPB SCH (03:13)
[2017-09-15] MEDS: Levothyroxine 125 MCG TAB PO SCH (06:33)
[2017-09-15] MEDS: Sucralfate 1 gm/10 ml Oral Susp UD PO SCH ×2 (06:33→21:27)
[2017-09-15 07:36] LABS: BASO # 0.1 K/uL (0.0-0.2); BASO % 0.6 % (0.0-2.0); EOS % 0.1 % (0.0-4.0); HEMATOCRIT 24.8 % (34.0-47.0); LYMPH # 0.8 K/uL (1.0-4.3); LYMPH % 8.4 % (20.0-40.0); MEAN CORPUSCULAR HEMOGLOBIN 30.4 pg (27.0-31.0); MEAN CORPUSCULAR HGB CONC 35.4 g/dL (33.0-37.0); MEAN PLATELET VOLUME 8.3 fL (7.2-11.7); MONO # 0.5 K/uL (0.0-0.8); MONO % 5.5 % (0.0-10.0); PLATELET COUNT 226 K/uL (130-400); RED CELL DISTRIBUTION WIDTH 14.2 % (11.5-14.5); WHITE BLOOD COUNT 9.3 K/uL (4.8-10.8)
--- NOTE | 2017-09-15 07:51 | CP.PCM.PN ---
Subjective - Date & Time of Evaluation Date of Evaluation: 09/15/17 Time of Evaluation: 07:48 - Subjective Subjective: Ms. Morel was seen and examined at the bedside. She is alert, responsive. She complains of having stomach pain with scale of 8/10 and episodes of diarrhea. She denies any headache, dizziness, numbness, nausea, or vomiting. Staff paged the primary physician regarding her diarrhea. There was no untoward events overnight. Objective - Vital Signs/Intake and Output Vital Signs (last 24 hours): Temp Pulse Resp BP Pulse Ox 98.7 F 98 H 20 149/91 H 100 09/15/17 04:00 09/15/17 04:00 09/15/17 04:00 09/15/17 04:00 09/15/17 04:00 Intake and Output: 09/15/17 09/15/17 06:59 18:59 Intake Total 200 Output Total 1350 Balance -1150 - Medications Medications: Current Medications Amlodipine Besylate (Norvasc) 5 mg NG DAILY [facility] Last Admin: 09/14/17 10:11 Dose: 5 mg Aspirin (Ecotrin) 81 mg PO DAILY [facility] Last Admin: 09/14/17 10:11 Dose: 81 mg Dexamethasone (Decadron Inj) 4 mg IV Q12 [facility] Last Admin: 09/14/17 21:37 Dose: 4 mg Dextrose (Dextrose 50% Inj) 0 ml IV STAT PRN; Protocol PRN Reason: Hyglycemia Protocol Last Admin: 09/07/17 17:10 Dose: 50 ml Dextrose (Glutose 15) 0 gm PO ONCE PRN; Protocol PRN Reason: Hypoglycemia Protocol Last Admin: 09/12/17 11:25 Dose: 15 gm Efavirenz/Emtricitabine/Tenofovir (Atripla 600 Mg-200 Mg-300 Mg) 1 tab PO DAILY [facility] Last Admin: 09/14/17 10:11 Dose: 1 tab Glucagon (Glucagen Diagnostic Kit) 0 mg IM STAT PRN; Protocol PRN Reason: Hypoglycemia Protocol Aztreonam 2 gm/ Sodium (Chloride) 100 mls @ 100 mls/hr IVPB Q8H [facility] Last Admin: 09/15/17 03:13 Dose: 100 mls/hr Fluconazole (Diflucan Iv 200 Mg/100 Ml Ns) 100 mls @ 100 mls/hr IVPB DAILY [facility] Last Admin: 09/14/17 10:11 Dose: 100 mls/hr Valproate Sodium 250 mg/ (Sodium Chloride) 102.5 mls @ 0 mls/hr IVPB Q12 [facility] PRN Reason: Per Protocol Last Admin: 09/14/17 21:38 Dose: 100 mls/hr Vancomycin/Sodium Chloride (Vancomycin 1 Gm/Ns 200 Ml) 1 gm in 200 mls @ 133.333 mls/hr IVPB Q24H [facility] Last Admin: 09/14/17 15:31 Dose: 133.333 mls/hr Insulin Aspart (Novolog) 0 unit SC ACHS [facility] PRN Reason: Protocol Last Admin: 09/14/17 21:37 Dose: Not Given Insulin Aspart (Novolog) 4 unit SC AC [facility] Last Admin: 09/14/17 17:24 Dose: 4 unit Insulin Detemir (Levemir) 12 unit SC HS [facility] Last Admin: 09/14/17 21:36 Dose: 12 unit Levothyroxine Sodium (Synthroid) 125 mcg PO DAILY@0630 [facility] Last Admin: 09/15/17 06:33 Dose: 125 mcg Ondansetron HCl (Zofran Inj) 4 mg IVP Q6H PRN PRN Reason: Nausea/Vomiting Last Admin: 08/27/17 14:44 Dose: 4 mg Potassium Phos/Sodium Phos (Neutra-Phos) 1 pkt PO TID [facility] Last Admin: 09/14/17 17:24 Dose: 1 pkt Sucralfate (Carafate Oral Susp) 1 gm PO ACS [facility] Last Admin: 09/15/17 06:33 Dose: 1 gm Trimethoprim/Sulfamethoxazole (Bactrim Ds Tab) 1 tab PO MWF [facility] Last Admin: 09/12/17 09:45 Dose: 1 tab - Labs Labs: 09/15/17 07:16 09/14/17 07:12 PT 11.1 SECONDS (9.7-12.2) 09/08/17 06:26 INR 1.0 09/08/17 06:26 APTT 26 SECONDS (21-34) 09/08/17 06:26 - Constitutional Appears: No Acute Distress - Head Exam Head Exam: ATRAUMATIC, NORMAL INSPECTION, NORMOCEPHALIC - Neurological Exam Neurological Exam: Alert, Awake Neuro motor strength exam: Left Upper Extremity: 5, Right Upper Extremity: 5, Left Lower Extremity: 5, Right Lower Extremity: 5 Additional comments: She is able to answer questions and follow commands. Sensation remains intact. Assessment and Plan (1) Encephalopathy acute Assessment & Plan: Case discussed with Dr. Denney, continue all current medical, physical, and occupational therapies. Tegretol level this am. Status: Acute
[2017-09-15 07:55] LABS: CHLORIDE 99 mmol/L (98-107); SODIUM 128 mmol/L (132-148)
[2017-09-15 07:56] LABS: POTASSIUM 3.3 mmol/L (3.6-5.2)
[2017-09-15 07:57] LABS: GFR AFRICAN-AMERICAN > 60
[2017-09-15 07:58] LABS: ALB/GLOB RATIO 1.3 (1.0-2.1); ALKALINE PHOSPHATASE 110 U/L (38-126); ALT/SGPT 56 U/L (9-52); AST/SGOT 19 U/L (14-36); BILIRUBIN,TOTAL 0.4 mg/dL (0.2-1.3); BLOOD UREA NITROGEN 20 mg/dL (7-17); CARBON DIOXIDE 17 mmol/L (22-30); GLUCOSE,RANDOM 171 mg/dL (65-105); TOTAL PROTEIN 6.3 g/dL (6.3-8.3)
[2017-09-15 07:59] LABS: CALCIUM 8.9 mg/dl (8.6-10.4); MAGNESIUM 1.9 mg/dL (1.6-2.3); PHOSPHOROUS 3.5 mg/dL (2.5-4.5)
[2017-09-15 08:30] LABS: BASOPHIL 1 % (0-2); MYELOCYTE 1 % (0-0); NEUTROPHIL 87 % (50-75); TOTAL CELLS COUNTED 100
[2017-09-15] MEDS: Tmp-Smz 800 mg-160 mg DS Tab PO SCH (08:34)
[2017-09-15] MEDS: (Novolog) Insulin Aspart, Recombinant 100 u/ml 10 ml vial SC SCH ×7 (08:35→22:06)
[2017-09-15] MEDS ORDERED: Potassium Chloride 20 mEq ER Tab PO ONE (09:34)
--- NOTE | 2017-09-15 09:43 | CP.PCM.PN ---
<Fransisco Doshi R - Last Filed: 09/15/17 15:24> Subjective - Date & Time of Evaluation Date of Evaluation: 09/15/17 Time of Evaluation: 09:36 - Subjective Subjective: Patient seen and examined this AM. There were no acute events overnight. Her niece and best friend were with her in the room. She was conversational, alert, responsive. She did not endorse any specific complaints, she said she was "sick of being sick". She denied headache, chest pain, abdominal pain, nausea, vomiting, fever, chills. Objective - Vital Signs/Intake and Output Vital Signs (last 24 hours): Temp Pulse Resp BP Pulse Ox 97.5 F L 100 H 18 155/85 H 99 09/15/17 08:59 09/15/17 08:59 09/15/17 08:59 09/15/17 08:59 09/15/17 08:59 Intake and Output: 09/15/17 09/15/17 06:59 18:59 Intake Total 200 Output Total 1350 Balance -1150 - Medications Medications: Current Medications Amlodipine Besylate (Norvasc) 5 mg NG DAILY [facility] Last Admin: 09/14/17 10:11 Dose: 5 mg Aspirin (Ecotrin) 81 mg PO DAILY [facility] Last Admin: 09/14/17 10:11 Dose: 81 mg Dexamethasone (Decadron Inj) 4 mg IV Q12 [facility] Last Admin: 09/14/17 21:37 Dose: 4 mg Dextrose (Dextrose 50% Inj) 0 ml IV STAT PRN; Protocol PRN Reason: Hyglycemia Protocol Last Admin: 09/07/17 17:10 Dose: 50 ml Dextrose (Glutose 15) 0 gm PO ONCE PRN; Protocol PRN Reason: Hypoglycemia Protocol Last Admin: 09/12/17 11:25 Dose: 15 gm Efavirenz/Emtricitabine/Tenofovir (Atripla 600 Mg-200 Mg-300 Mg) 1 tab PO DAILY [facility] Last Admin: 09/14/17 10:11 Dose: 1 tab Glucagon (Glucagen Diagnostic Kit) 0 mg IM STAT PRN; Protocol PRN Reason: Hypoglycemia Protocol Aztreonam 2 gm/ Sodium (Chloride) 100 mls @ 100 mls/hr IVPB Q8H [facility] Last Admin: 09/15/17 03:13 Dose: 100 mls/hr Fluconazole (Diflucan Iv 200 Mg/100 Ml Ns) 100 mls @ 100 mls/hr IVPB DAILY [facility] Last Admin: 09/14/17 10:11 Dose: 100 mls/hr Valproate Sodium 250 mg/ (Sodium Chloride) 102.5 mls @ 0 mls/hr IVPB Q12 [facility] PRN Reason: Per Protocol Last Admin: 09/14/17 21:38 Dose: 100 mls/hr Vancomycin/Sodium Chloride (Vancomycin 1 Gm/Ns 200 Ml) 1 gm in 200 mls @ 133.333 mls/hr IVPB Q24H [facility] Last Admin: 09/14/17 15:31 Dose: 133.333 mls/hr Insulin Aspart (Novolog) 0 unit SC ACHS [facility] PRN Reason: Protocol Last Admin: 09/15/17 08:35 Dose: Not Given Insulin Aspart (Novolog) 4 unit SC AC [facility] Last Admin: 09/15/17 08:35 Dose: 4 unit Insulin Detemir (Levemir) 12 unit SC HS [facility] Last Admin: 09/14/17 21:36 Dose: 12 unit Levothyroxine Sodium (Synthroid) 125 mcg PO DAILY@0630 [facility] Last Admin: 09/15/17 06:33 Dose: 125 mcg Ondansetron HCl (Zofran Inj) 4 mg IVP Q6H PRN PRN Reason: Nausea/Vomiting Last Admin: 08/27/17 14:44 Dose: 4 mg Potassium Chloride (K-Dur 20 Meq Er Tab) 40 meq PO ONCE ONE Stop: 09/15/17 09:35 Potassium Phos/Sodium Phos (Neutra-Phos) 1 pkt PO TID [facility] Last Admin: 09/14/17 17:24 Dose: 1 pkt Sucralfate (Carafate Oral Susp) 1 gm PO ACBHS [facility] Last Admin: 09/15/17 06:33 Dose: 1 gm Trimethoprim/Sulfamethoxazole (Bactrim Ds Tab) 1 tab PO MWF [facility] Last Admin: 09/15/17 08:34 Dose: 1 tab - Labs Labs: 09/15/17 07:16 09/15/17 07:16 PT 11.1 SECONDS (9.7-12.2) 09/08/17 06:26 INR 1.0 09/08/17 06:26 APTT 26 SECONDS (21-34) 09/08/17 06:26 - Constitutional Appears: Well, Non-toxic, No Acute Distress - Head Exam Head Exam: ATRAUMATIC, NORMAL INSPECTION - Eye Exam Eye Exam: EOMI - ENT Exam ENT Exam: Mucous Membranes Moist - Neck Exam Neck Exam: Normal Inspection - Respiratory Exam Respiratory Exam: Clear to Ausculation Bilateral, NORMAL BREATHING PATTERN. absent: Rales, Rhonchi, Wheezes - Cardiovascular Exam Cardiovascular Exam: REGULAR RHYTHM, RRR, +S1, +S2. absent: Bradycardia, Tachycardia - GI/Abdominal Exam GI & Abdominal Exam: Soft, Normal Bowel Sounds. absent: Tenderness - Extremities Exam Extremities Exam: Normal Capillary Refill, Normal Inspection. absent: Pedal Edema, Tenderness - Neurological Exam Neurological Exam: Alert, Awake, Oriented x3 - Psychiatric Exam Psychiatric exam: Agitated - Skin Skin Exam: Dry, Intact, Normal Color, Warm Assessment and Plan - Assessment and Plan (Free Text) Assessment: AIDS, acute encephalopathy 09/14: Patient has been stable over the weekend, no calls. Energy level is improving. Continue to have PT coming and working with the patient. Follow neuro recs on deacdron taper. Look to discharge to rehab once patient has improved strength. Continue medical management at this time. Spoke with patient' s son, Twan, on Thursday 09/13. He was given an update and informed that we will not be performing a LP on the patient at this time due to risk outweighing benefits at this time. Informed him that we will look to discharge patient to rehab center, [facility], once patient is stable. 09/13: Patient's mental status is remaining stable. Her energy level is slightly improved today. Will follow surgery recommendations for decadron taper. Pink catheter was changed yesterday. The patient's sacral area was examined yesterday to discover the start of a sacral decubitus ulcer. Nurses currently applying medi-honey to affected area. Patient is to continue with PT to attempt to gain strength to get out of bed. Continue current medical management for now. 09/12: Continue to monitor patient's cognitive function as we continue to taper down decadron. Patient's mental status was stable compared to yesterday. Neurology has decided to hold off of LP at this time due to the procedure being a greater risk to the patient as we do not think that she could stay still for the duration of the procedure. We do not want to use anesthesia or anything that may alter the patient's cognitive function. 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 09/11: per neuro note, increase valproate 250 mg IVPB to every 12 hours from daily and decrease decadron 4 mg IV every 6 hours to every 12 hours. Will continue all other medical management at this time. Patient started on Glucerna meal supplements due to poor oral intake. 09/10: Vanco trough = 18.65 - Vanco restarted. Awaiting neurology recommendations in regards to LP. Patient mental status is continuing to improve. Continue current medical management. PEG placement on hold until further notice due to return of cognitive function and ability to feed her self. Continue to monitor closely. f/u PT recommendations. 09/09: Pt is AAOx3 today and is much more alert today. Her NG tube was pulled this morning and swallow evaluation was done this morning. Patient showed no signs of aspiration (cough/throat clearing) and was cleared for a regular diet. She is scheduled for a brain MRI this morning to re-evaluate for PML. Patient was not given any sedative for MRI per Dr. Denney because we do not want to negatively affect her cognitive function. Depending on the results, Dr. Denney will determine if a LP is necessary or not. PEG tube placement is still on hold as patient's mental status appears to be improving and may be able to feed herself. 09/08: Per Neuro note, it appears LP is tentatively scheduled for tomorrow, sunday 09/09. Platelet count is 154 today. Patient is more alert and awake, answering questions today. Patient still appears very lethargic and weak. Per GI , PEG tube placement will remain pending for further observation of hospital course. GI would like ID eval for potential infectious complications of PEG tube placement. 09/06: Spoke to Dr. Denney. Given that her platelets have risen, we ordered an LP to be done under fluoro for Friday. 09/05: Patient shakes head yes and no to questions today and actually spoke! When asked where she was, patient responded with, "the hospital." Patient is still very lethargic, but cognition appears to be improving. Will continue to monitor. Patient is still currently receiving tube feedings through the NG tube. Dr. Cervantes re-consulted for PEG tube evaluation. Spoke to Dr. Cervantes about PEG tube evaluation, he requested that someone else be consulted since he has not seen the patient since . Discussed with Dr. Oshea, he requested specifically that Dr. Estrada be consulted for a second GI opinion. Dr. Estrada's fellow Dr. Shah called and informed. Dr. Shah stated that he will see the patient in the morning tomorrow and will plan for PEG placement either friday or friday next week. 09/03: Patient's platelets still too low for LP even after multiple platelet transfusions. Dr. Denney is requesting platelets be >75. Will discuss with Dr. Denney possibility of performing a LP shortly after a platelet transfusion is completed. Will need to be transfused more platelets. Dr. Denney would like to perform LP under anesthesia due to patient's mental status and inability to follow commands properly. 09/01: Patient was unable to be awoken today. She responded to painful stimuli by pulling away and moaning. She was able to move all four extremities. Discussed with patient's that the patient's prognosis is very poor. He states he understands. Patient will likely need a LP to acquire CSF fluid for further eval. Transfused 1 unit of platelets today. f/u EEG discontinued morphine 08/31: She is somulent. Able to open eyes, random slow movements of arms and legs. Not following any commands. She was started on IV decardon yesterday. She will likley need LP to aquire CSF in the future to again test for JAGUAR virus since imaging via MRI is suggesting progressive multifocal leukoencephalopathy. Previous testing of JAGUAR virus were negative. This being said her platelet count is very low, transfusing 1 unit today. Pending hematology evaluation. 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 Neck MRA 08/29/17: No significant stenosis seen in the visualized bilateral common or internal carotid arteries. Mild right ICA proximal stenosis is identified with plaque identified at the right carotid bulb. Widely patent bilateral common carotids but otherwise, as imaged. Symmetric vertebrobasilar circulation. Head MRA 08/29/17: Suboptimal diagnostic quality due to motion degraded images, allowing for this, no occlusion. Apparent narrowing in bilateral M1 segments could be related to motion artifacts. Brain MRI 09/09/17: Diminishing bilateral thalamic signal abnormality though bilateral cerebral white matter signal changes are not significantly changed. No acute intracranial findings Patient potentially had a seizure over night. CT (08/22) was negative for any acute findings. Brain MRI was ordered for f/u. patient has not had any more events since then Neurology Consulted, Dr. Denney --> Help appreciated; states that all changes in AMS are most likely due to AIDS Brain MRI w/o contrast(08/22) - Mild diffuse/confluent nonspecific white matter changes as described. Findings are of uncertain etiology though could represent sequela of HIV encephalopathy. PML not excluded. See above discussion for additional differential diagnostic considerations. Questionable secretions/opacification of exuberantly aerated mastoid air cells ramyfing into the left petrous apex however the possibility apical petrositis or small the left petrous CT apex cholesterol granuloma. Repeat Head CT w/o contrast 08/28/17 - Significant motion artifact limits this exam however interval edema is identified at the right greater than left basal ganglia and thalami as well as the bilateral occipital lobes and the right parietal lobe. Is difficult to determine definitively though this is vasogenic or cytotoxic however embolic infarction is questioned. Given the basal ganglia and thalami being affected focally, and anoxic insult is included in the differential diagnosis or even though there is no global loss of vaca-white matter differentiation and edema in this patient. Infectious or metabolic etiologies are not excluded but are not favored. * EEG ordered for morning of 08/23: This is a probably normal EEG. There was increased beta activity noticed intermittently. This could be a normal finding. No focal slowing no seizure like activity was observed. Correlation with clinical findings is needed. 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 Opportunistic Infection ID Dr. Meneses --> help appreciated * Continue Diflucan, bactrim * Started Atripla started 08/27/17 - CT head 08/11 - Negative - MRI 08/12 - unremarkable - LDH - 478 - CD4 - 72 (AIDS confirmed) -->repeat 110 - HIV-1 RNA Qnt (RT-PCR) - 5.80 high - Viral Load: Must r/o infectious causes * CMV - IgG > 10; IgM <30; Dennotes previous infection, no acute infection * Crypto - <1:2 * RPR - nonreactive * Toxoplasma - IgG < 7.2; IgM < 8 - Patient started on empiric antibiotic therapy on Wednesday 09/05 with Aztreonam and Vancomyocin due to rising leukocytosis. Leukocytosis improving 20.6 --> 15.8. Aztreoname and vancomycin discontinued on 09/15/17. AIDS 09/09: Continue on Atripla 08/31: On Atripla at this time. This is being crushed and given via NGT * Dr. Meneses recs * Bactrim DS 1 tab PO M/W/ * Atripla [id number](Efavirenz/Emtricitabine/Teno) 1 tab PO daily - script written and placed in chart for pt's to picking crew supervisor and fill, so when patient is discharged to [facility], he will be able to take her medication with her, as [facility] does not usually provide HARRT medications. Dr. Sahu discussed with pt's , Emiliano Hoang, on the phone. He stated he understands and will picking crew supervisor prescription to fill it by 08/28. * Neupogen given 08/25 * HIV screen Positive, CD4 = 72, repeat CD4 = 110 * hep panel negative * Will f/u recs for HARRT therapy upon discharge. * Patient will need to follow up with HIV clinic for continuation of HARRT therapy as out patient. * [facility] - Clinic at [address] [place], [place] * [facility] - Clinic at [address], [place] Phone Anemia; most likely 2/2 to advanced AIDS 09/08: Hg 9.8; platelets increased to 154 09/06: Platelet count gracia to 130 08/31: Patient's platelet count continues to decrease, conset recived for one unit of platelets to be given * Improved to Hgb of 12.7 from 7.1 - patient given 2 units pRBCs on 08/26/17 ( consent given by , Emiliano Hoang, on phone) * continue to monitor Diabetes hypoglycemia protocol RISS only for now Endo consulted, Dr. Nesha Donaldson; appreciate recs * Levemir 8units SC Q12 * ISS low HgA1C - 7.1 accuchecks q6h Continue to monitor Hyponatremia; resolved * STOPPED medications due to potential s/e of hyponatremia * Zoloft, Trazodone and IV fluids. * Nephro Consult, Dr. Wong - help appreciated, f/u recs * urine sodium 113 --> 43 * urine osmol 502 --> 176 * serum osmol 276 * will continue to monitor Dysphagia; resolved Chest CT * particulate matter, possibly food, identified within the esophageal lumen intermixed with gas. * Incidental 6mm nodule within superior right breast. CXR * no acute cardiopulmonary disease Neck soft tissue CT * Abnormal circumferential thickening noted of the cervical esophagus. findings could be due to reflux esophagitis but esophageal carcinoma is not excluded. GI consulted, Dr. 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 Prophylactic Care * Heparin 5000u sc q8h - DC'ed due to anemia * SCDs for DVT ppx * Pepcid 20 ivp daily * Fall precautions DISPO: Once patient is stable, she has been approved for placement at [facility] per case management. We are waiting on patient's daughter to complete and return paperwork. <Wilner Meza - Last Filed: 09/15/17 18:30> Objective - Vital Signs/Intake and Output Vital Signs (last 24 hours): Temp Pulse Resp BP Pulse Ox 98.3 F 111 H 20 136/81 100 09/15/17 15:54 09/15/17 15:54 10/23/17 15:54 09/15/17 15:54 09/15/17 15:54 Intake and Output: 09/15/17 09/15/17 06:59 18:59 Intake Total 200 Output Total 1350 800 Balance -1150 -800 - Medications Medications: Current Medications Amlodipine Besylate (Norvasc) 5 mg NG DAILY [facility] Last Admin: 09/15/17 10:01 Dose: 5 mg Aspirin (Ecotrin) 81 mg PO DAILY [facility] Last Admin: 09/15/17 10:01 Dose: 81 mg Dexamethasone (Decadron Inj) 4 mg IV Q12 [facility] Last Admin: 09/15/17 10:01 Dose: 4 mg Dextrose (Dextrose 50% Inj) 0 ml IV STAT PRN; Protocol PRN Reason: Hyglycemia Protocol Last Admin: 09/07/17 17:10 Dose: 50 ml Dextrose (Glutose 15) 0 gm PO ONCE PRN; Protocol PRN Reason: Hypoglycemia Protocol Last Admin: 09/12/17 11:25 Dose: 15 gm Efavirenz/Emtricitabine/Tenofovir (Atripla 600 Mg-200 Mg-300 Mg) 1 tab PO DAILY [facility] Last Admin: 09/15/17 10:00 Dose: 1 tab Glucagon (Glucagen Diagnostic Kit) 0 mg IM STAT PRN; Protocol PRN Reason: Hypoglycemia Protocol Valproate Sodium 250 mg/ (Sodium Chloride) 102.5 mls @ 0 mls/hr IVPB Q12 [facility] PRN Reason: Per Protocol Last Admin: 09/15/17 10:01 Dose: 100 mls/hr Insulin Aspart (Novolog) 0 unit SC ACHS [facility] PRN Reason: Protocol Last Admin: 09/15/17 17:30 Dose: 2 unit Insulin Aspart (Novolog) 4 unit SC AC [facility] Last Admin: 09/15/17 17:30 Dose: 4 unit Insulin Detemir (Levemir) 12 unit SC HS [facility] Last Admin: 09/14/17 21:36 Dose: 12 unit Levothyroxine Sodium (Synthroid) 125 mcg PO DAILY@0630 [facility] Last Admin: 09/15/17 06:33 Dose: 125 mcg Ondansetron HCl (Zofran Inj) 4 mg IVP Q6H PRN PRN Reason: Nausea/Vomiting Last Admin: 08/27/17 14:44 Dose: 4 mg Potassium Phos/Sodium Phos (Neutra-Phos) 1 pkt PO TID [facility] Last Admin: 09/15/17 17:27 Dose: 1 pkt Sucralfate (Carafate Oral Susp) 1 gm PO ACBHS [facility] Last Admin: 09/15/17 06:33 Dose: 1 gm Trimethoprim/Sulfamethoxazole (Bactrim Ds Tab) 1 tab PO MWF [facility] Last Admin: 09/15/17 08:34 Dose: 1 tab - Labs Labs: 09/15/17 07:16 09/15/17 07:16 PT 11.1 SECONDS (9.7-12.2) 09/08/17 06:26 INR 1.0 09/08/17 06:26 APTT 26 SECONDS (21-34) 09/08/17 06:26 Attending/Attestation - Attestation I have personally seen and examined this patient.: Yes I have fully participated in the care of the patient.: Yes I have reviewed all pertinent clinical information, including history, physical exam and plan: Yes Notes (Text): seen and examined with the resident this morning.Agrees with the documentation assessment and plan patient is alert oriented.Clear speech.not confused her dysphagia resolved continue HAART therapy and bactrim no fever,no leukocytosis.clinicaly better d/w Dr Khan.Stop antibiotics continue her current meds out pt follow up of her breast mass may remove faley,continue prophylactic care d/c to rehab .f/w with CW
[2017-09-15] MEDS: Potassium & Sodium Phosphate PO SCH ×3 (10:00→17:27)
[2017-09-15] MEDS: Efavirenz/Emtricitabine/Teno 1 TAB PO SCH (10:00)
[2017-09-15] MEDS: Dexamethasone 4 mg/1 ml IV SCH ×2 (10:01→21:27)
[2017-09-15] MEDS: Fluconazole IV 200mg/100 ml NS 100 ML IVPB SCH (10:01)
[2017-09-15] MEDS: Valproate 250 MG in Sodium Chloride 0.9% 100 ML IVPB SCH ×2 (10:01→21:26)
[2017-09-15] MEDS: Insulin Detemir 100 units/ml Vial (Levemir) SC SCH (22:06)
--- NOTE | 2017-09-16 06:33 | PN ---
DATE: 09/15/2017 ENDO FOLLOWUP NOTE LOCATION: In room 654. SUBJECTIVE: This is a 57-year-old female with recent uncontrolled type I insulin-dependent diabetes, now being followed closely for metabolic management. Her glycemic levels are fluctuating, but much improved at this time and have ranged from 144 to 184 mg/dL. So at this time, we will continue same basal and bolus insulin regimen to allow for dose equilibration and keep her on the Levemir given as 12 units subcutaneously at bedtime daily as ordered. We will continue the NovoLog given as 4 units subcutaneously t.i.d. before meals as given. We will titrate incrementally as indicated to optimize metabolic control. We will follow and advise accordingly. Nesha Donaldson MD
[2017-09-16] MEDS: Levothyroxine 125 MCG TAB PO SCH (06:48)
[2017-09-16] MEDS: Sucralfate 1 gm/10 ml Oral Susp UD PO SCH ×2 (06:48→21:04)
[2017-09-16 07:48] LABS: CHLORIDE 98 mmol/L (98-107); POTASSIUM 3.5 mmol/L (3.6-5.2); SODIUM 127 mmol/L (132-148)
[2017-09-16 07:50] LABS: AST/SGOT 28 U/L (14-36); BILIRUBIN,TOTAL 0.4 mg/dL (0.2-1.3); CARBON DIOXIDE 19 mmol/L (22-30); GFR AFRICAN-AMERICAN > 60
[2017-09-16 07:51] LABS: ALB/GLOB RATIO 0.9 (1.0-2.1); ALKALINE PHOSPHATASE 126 U/L (38-126); ALT/SGPT 56 U/L (9-52); BASO # 0.1 K/uL (0.0-0.2); BASO % 0.4 % (0.0-2.0); BLOOD UREA NITROGEN 22 mg/dL (7-17); CALCIUM 9.5 mg/dl (8.6-10.4); EOS % 0.1 % (0.0-4.0); GLUCOSE,RANDOM 180 mg/dL (65-105); HEMATOCRIT 24.7 % (34.0-47.0); LYMPH % 8.1 % (20.0-40.0); MEAN CELL VOLUME 85.2 fL (81.0-99.0); MEAN CORPUSCULAR HEMOGLOBIN 29.8 pg (27.0-31.0); MEAN PLATELET VOLUME 8.6 fL (7.2-11.7); MONO # 0.4 K/uL (0.0-0.8); MONO % 3.5 % (0.0-10.0); PLATELET COUNT 244 K/uL (130-400); RED CELL DISTRIBUTION WIDTH 14.8 % (11.5-14.5); TOTAL PROTEIN 7.5 g/dL (6.3-8.3); WHITE BLOOD COUNT 12.6 K/uL (4.8-10.8)
--- NOTE | 2017-09-16 07:55 | CP.PCM.PN ---
<Fransisco Doshi R - Last Filed: 09/16/17 15:20> Subjective - Date & Time of Evaluation Date of Evaluation: 09/16/17 Time of Evaluation: 07:52 - Subjective Subjective: Patient was seen and examined at bedside this AM. Reviewed nursing note and no overnight events recorded. She was lying comfortably watching television under a blanket brought from home. She complained of feeling cold, she denied other complaints. She was alert and oriented and conversational. She denied chest pain , abdominal pain, diarrhea, fever, vomiting, nausea. Objective - Vital Signs/Intake and Output Vital Signs (last 24 hours): Temp Pulse Resp BP Pulse Ox 97.5 F L 90 20 158/91 H 97 09/16/17 04:05 09/16/17 04:05 09/16/17 04:05 09/16/17 04:05 09/16/17 04:05 Intake and Output: 09/16/17 09/16/17 06:59 18:59 Intake Total 760 Output Total 2200 Balance -1440 - Medications Medications: Current Medications Amlodipine Besylate (Norvasc) 5 mg NG DAILY COUNT INCLUDES [facility] Last Admin: 09/15/17 10:01 Dose: 5 mg Aspirin (Ecotrin) 81 mg PO DAILY JESSICA Last Admin: 09/15/17 10:01 Dose: 81 mg Dexamethasone (Decadron Inj) 4 mg IV Q12 JESSICA Last Admin: 09/15/17 21:27 Dose: 4 mg Dextrose (Dextrose 50% Inj) 0 ml IV STAT PRN; Protocol PRN Reason: Hyglycemia Protocol Last Admin: 09/07/17 17:10 Dose: 50 ml Dextrose (Glutose 15) 0 gm PO ONCE PRN; Protocol PRN Reason: Hypoglycemia Protocol Last Admin: 09/12/17 11:25 Dose: 15 gm Efavirenz/Emtricitabine/Tenofovir (Atripla 600 Mg-200 Mg-300 Mg) 1 tab PO DAILY JESSICA Last Admin: 09/15/17 10:00 Dose: 1 tab Glucagon (Glucagen Diagnostic Kit) 0 mg IM STAT PRN; Protocol PRN Reason: Hypoglycemia Protocol Valproate Sodium 250 mg/ (Sodium Chloride) 102.5 mls @ 0 mls/hr IVPB Q12 JESSICA PRN Reason: Per Protocol Last Admin: 09/15/17 21:26 Dose: 100 mls/hr Insulin Aspart (Novolog) 0 unit SC ACHS COUNT INCLUDES THE [facility] PRN Reason: Protocol Last Admin: 09/15/17 22:06 Dose: 2 unit Insulin Aspart (Novolog) 4 unit SC AC COUNT INCLUDES THE [facility] Last Admin: 09/15/17 17:30 Dose: 4 unit Insulin Detemir (Levemir) 12 unit SC HS COUNT INCLUDES THE [facility] Last Admin: 09/15/17 22:06 Dose: 12 unit Levothyroxine Sodium (Synthroid) 125 mcg PO DAILY@0630 COUNT INCLUDES THE [facility] Last Admin: 09/16/17 06:48 Dose: 125 mcg Ondansetron HCl (Zofran Inj) 4 mg IVP Q6H PRN PRN Reason: Nausea/Vomiting Last Admin: 08/27/17 14:44 Dose: 4 mg Potassium Phos/Sodium Phos (Neutra-Phos) 1 pkt PO TID COUNT INCLUDES THE [facility] Last Admin: 09/15/17 17:27 Dose: 1 pkt Sucralfate (Carafate Oral Susp) 1 gm PO ACBHS COUNT INCLUDES THE [facility] Last Admin: 09/16/17 06:48 Dose: 1 gm Trimethoprim/Sulfamethoxazole (Bactrim Ds Tab) 1 tab PO MWF COUNT INCLUDES THE [facility] Last Admin: 09/15/17 08:34 Dose: 1 tab - Labs Labs: 09/15/17 07:16 09/15/17 07:16 PT 11.1 SECONDS (9.7-12.2) 09/08/17 06:26 INR 1.0 09/08/17 06:26 APTT 26 SECONDS (21-34) 09/08/17 06:26 - Constitutional Appears: No Acute Distress - Head Exam Head Exam: ATRAUMATIC, NORMAL INSPECTION - Eye Exam Eye Exam: EOMI - ENT Exam ENT Exam: Mucous Membranes Moist - Respiratory Exam Respiratory Exam: Clear to Ausculation Bilateral, NORMAL BREATHING PATTERN. absent: Accessory Muscle Use, Rales, Rhonchi, Wheezes - Cardiovascular Exam Cardiovascular Exam: REGULAR RHYTHM, RRR, +S1, +S2. absent: Bradycardia, Tachycardia - GI/Abdominal Exam GI & Abdominal Exam: Soft, Normal Bowel Sounds. absent: Tenderness - Extremities Exam Extremities Exam: Normal Capillary Refill, Normal Inspection, Tenderness Additional comments: muscle wasting noted in lower extremities bilaterally - Neurological Exam Neurological Exam: Alert, Awake, Oriented x3 - Psychiatric Exam Psychiatric exam: Normal Affect, Normal Mood - Skin Skin Exam: Dry, Intact, Normal Color, Warm Assessment and Plan - Assessment and Plan (Free Text) Assessment: AIDS, acute encephalopathy 09/16: Valproate is increased from 250 mg IVPB Q 12 hours to Valproate 500 mg IVPB in the am and 250 mg IVPB at HS. Her Decadron and Valproate was switched from IV to PO as patient is tolerating PO. 09/14: Patient has been stable over the weekend, no calls. Energy level is improving. Continue to have PT coming and working with the patient. Follow neuro recs on deacdron taper. Look to discharge to rehab once patient has improved strength. Continue medical management at this time. Spoke with patient' s son, Twan, on Thursday 09/13. He was given an update and informed that we will not be performing a LP on the patient at this time due to risk outweighing benefits at this time. Informed him that we will look to discharge patient to rehab center, [facility], once patient is stable. 09/13: Patient's mental status is remaining stable. Her energy level is slightly improved today. Will follow surgery recommendations for decadron taper. Pink catheter was changed yesterday. The patient's sacral area was examined yesterday to discover the start of a sacral decubitus ulcer. Nurses currently applying medi-honey to affected area. Patient is to continue with PT to attempt to gain strength to get out of bed. Continue current medical management for now. 09/12: Continue to monitor patient's cognitive function as we continue to taper down decadron. Patient's mental status was stable compared to yesterday. Neurology has decided to hold off of LP at this time due to the procedure being a greater risk to the patient as we do not think that she could stay still for the duration of the procedure. We do not want to use anesthesia or anything that may alter the patient's cognitive function. 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 09/11: per neuro note, increase valproate 250 mg IVPB to every 12 hours from daily and decrease decadron 4 mg IV every 6 hours to every 12 hours. Will continue all other medical management at this time. Patient started on Glucerna meal supplements due to poor oral intake. 09/10: Vanco trough = 18.65 - Vanco restarted. Awaiting neurology recommendations in regards to LP. Patient mental status is continuing to improve. Continue current medical management. PEG placement on hold until further notice due to return of cognitive function and ability to feed her self. Continue to monitor closely. f/u PT recommendations. 09/09: Pt is AAOx3 today and is much more alert today. Her NG tube was pulled this morning and swallow evaluation was done this morning. Patient showed no signs of aspiration (cough/throat clearing) and was cleared for a regular diet. She is scheduled for a brain MRI this morning to re-evaluate for PML. Patient was not given any sedative for MRI per Dr. Denney because we do not want to negatively affect her cognitive function. Depending on the results, Dr. Denney will determine if a LP is necessary or not. PEG tube placement is still on hold as patient's mental status appears to be improving and may be able to feed herself. 09/08: Per Neuro note, it appears LP is tentatively scheduled for tomorrow, sunday 09/09. Platelet count is 154 today. Patient is more alert and awake, answering questions today. Patient still appears very lethargic and weak. Per GI , PEG tube placement will remain pending for further observation of hospital course. GI would like ID eval for potential infectious complications of PEG tube placement. 09/06: Spoke to Dr. Denney. Given that her platelets have risen, we ordered an LP to be done under fluoro for Friday. 09/05: Patient shakes head yes and no to questions today and actually spoke! When asked where she was, patient responded with, "the hospital." Patient is still very lethargic, but cognition appears to be improving. Will continue to monitor. Patient is still currently receiving tube feedings through the NG tube. Dr. Cervantes re-consulted for PEG tube evaluation. Spoke to Dr. Cervantes about PEG tube evaluation, he requested that someone else be consulted since he has not seen the patient since . Discussed with Dr. Oshea, he requested specifically that Dr. Estrada be consulted for a second GI opinion. Dr. Estrada's fellow Dr. Shah called and informed. Dr. Shah stated that he will see the patient in the morning tomorrow and will plan for PEG placement either friday or friday next week. 09/03: Patient's platelets still too low for LP even after multiple platelet transfusions. Dr. Denney is requesting platelets be >75. Will discuss with Dr. Denney possibility of performing a LP shortly after a platelet transfusion is completed. Will need to be transfused more platelets. Dr. Denney would like to perform LP under anesthesia due to patient's mental status and inability to follow commands properly. 09/01: Patient was unable to be awoken today. She responded to painful stimuli by pulling away and moaning. She was able to move all four extremities. Discussed with patient's that the patient's prognosis is very poor. He states he understands. Patient will likely need a LP to acquire CSF fluid for further eval. Transfused 1 unit of platelets today. f/u EEG discontinued morphine 08/31: She is somulent. Able to open eyes, random slow movements of arms and legs. Not following any commands. She was started on IV decardon yesterday. She will likley need LP to aquire CSF in the future to again test for JAGUAR virus since imaging via MRI is suggesting progressive multifocal leukoencephalopathy. Previous testing of JAGUAR virus were negative. This being said her platelet count is very low, transfusing 1 unit today. Pending hematology evaluation. 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 Neck MRA 08/29/17: No significant stenosis seen in the visualized bilateral common or internal carotid arteries. Mild right ICA proximal stenosis is identified with plaque identified at the right carotid bulb. Widely patent bilateral common carotids but otherwise, as imaged. Symmetric vertebrobasilar circulation. Head MRA 08/29/17: Suboptimal diagnostic quality due to motion degraded images, allowing for this, no occlusion. Apparent narrowing in bilateral M1 segments could be related to motion artifacts. Brain MRI 09/09/17: Diminishing bilateral thalamic signal abnormality though bilateral cerebral white matter signal changes are not significantly changed. No acute intracranial findings Patient potentially had a seizure over night. CT (08/22) was negative for any acute findings. Brain MRI was ordered for f/u. patient has not had any more events since then Neurology Consulted, Dr. Denney --> Help appreciated; states that all changes in AMS are most likely due to AIDS Brain MRI w/o contrast(08/22) - Mild diffuse/confluent nonspecific white matter changes as described. Findings are of uncertain etiology though could represent sequela of HIV encephalopathy. PML not excluded. See above discussion for additional differential diagnostic considerations. Questionable secretions/opacification of exuberantly aerated mastoid air cells ramyfing into the left petrous apex however the possibility apical petrositis or small the left petrous CT apex cholesterol granuloma. Repeat Head CT w/o contrast 08/28/17 - Significant motion artifact limits this exam however interval edema is identified at the right greater than left basal ganglia and thalami as well as the bilateral occipital lobes and the right parietal lobe. Is difficult to determine definitively though this is vasogenic or cytotoxic however embolic infarction is questioned. Given the basal ganglia and thalami being affected focally, and anoxic insult is included in the differential diagnosis or even though there is no global loss of vaca-white matter differentiation and edema in this patient. Infectious or metabolic etiologies are not excluded but are not favored. * EEG ordered for morning of 08/23: This is a probably normal EEG. There was increased beta activity noticed intermittently. This could be a normal finding. No focal slowing no seizure like activity was observed. Correlation with clinical findings is needed. 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 Opportunistic Infection ID Dr. Meneses --> help appreciated * Continue Diflucan, bactrim * Started Atripla started 08/27/17 - CT head 08/11 - Negative - MRI 08/12 - unremarkable - LDH - 478 - CD4 - 72 (AIDS confirmed) -->repeat 110 - HIV-1 RNA Qnt (RT-PCR) - 5.80 high - Viral Load: Must r/o infectious causes * CMV - IgG > 10; IgM <30; Dennotes previous infection, no acute infection * Crypto - <1:2 * RPR - nonreactive * Toxoplasma - IgG < 7.2; IgM < 8 - Patient started on empiric antibiotic therapy on Wednesday 09/05 with Aztreonam and Vancomyocin due to rising leukocytosis. Leukocytosis improving 20.6 --> 15.8. Aztreoname and vancomycin discontinued on 09/15/17. AIDS 09/09: Continue on Atripla 08/31: On Atripla at this time. This is being crushed and given via NGT * Dr. Meneses recs * Bactrim DS 1 tab PO M/W/ * Atripla [id number](Efavirenz/Emtricitabine/Teno) 1 tab PO daily - script written and placed in chart for pt's to pickling solution maker and fill, so when patient is discharged to [facility], he will be able to take her medication with her, as [facility] does not usually provide HARRT medications. Dr. Sahu discussed with pt's , Emiliano Hoang, on the phone. He stated he understands and will pickling solution maker prescription to fill it by 08/28. * Neupogen given 08/25 * HIV screen Positive, CD4 = 72, repeat CD4 = 110 * hep panel negative * Will f/u recs for HARRT therapy upon discharge. * Patient will need to follow up with HIV clinic for continuation of HARRT therapy as out patient. * [facility] - Clinic at [address], [place] * [facility] - Clinic at [address], [place] Phone Anemia; most likely 2/2 to advanced AIDS 09/08: Hg 9.8; platelets increased to 154 09/06: Platelet count gracia to 130 08/31: Patient's platelet count continues to decrease, conset recived for one unit of platelets to be given * Improved to Hgb of 12.7 from 7.1 - patient given 2 units pRBCs on 08/26/17 ( consent given by , Emiliano Hoang, on phone) * continue to monitor Diabetes hypoglycemia protocol RISS only for now Endo consulted, Dr. Nesha Donaldson; appreciate recs * Levemir 8units SC Q12 * ISS low HgA1C - 7.1 accuchecks q6h Continue to monitor Hyponatremia; resolved * STOPPED medications due to potential s/e of hyponatremia * Zoloft, Trazodone and IV fluids. * Nephro Consult, Dr. Wong - help appreciated, f/u recs * urine sodium 113 --> 43 * urine osmol 502 --> 176 * serum osmol 276 * will continue to monitor Dysphagia; resolved Chest CT * particulate matter, possibly food, identified within the esophageal lumen intermixed with gas. * Incidental 6mm nodule within superior right breast. CXR * no acute cardiopulmonary disease Neck soft tissue CT * Abnormal circumferential thickening noted of the cervical esophagus. findings could be due to reflux esophagitis but esophageal carcinoma is not excluded. GI consulted, Dr. 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 Prophylactic Care * Heparin 5000u sc q8h - DC'ed due to anemia * SCDs for DVT ppx * Pepcid 20 ivp daily * Fall precautions DISPO: Once patient is stable, she has been approved for placement at [facility] per case management. We are waiting on patient's daughter to complete and return paperwork. <Wilner Meza - Last Filed: 09/16/17 17:03> Objective - Vital Signs/Intake and Output Vital Signs (last 24 hours): Temp Pulse Resp BP Pulse Ox 98.2 F 110 H 20 155/89 H 99 09/16/17 15:46 09/16/17 15:46 09/16/17 15:46 09/16/17 15:46 09/16/17 15:46 Intake and Output: 09/16/17 09/16/17 06:59 18:59 Intake Total 760 720 Output Total 2200 925 Balance -1440 -205 - Medications Medications: Current Medications Amlodipine Besylate (Norvasc) 5 mg NG DAILY COUNT INCLUDES THE [facility] Last Admin: 09/16/17 09:23 Dose: 5 mg Aspirin (Ecotrin) 81 mg PO DAILY COUNT INCLUDES [facility] Last Admin: 09/16/17 09:22 Dose: 81 mg Dexamethasone (Decadron) 4 mg PO Q12 COUNT INCLUDES THE [facility] Dextrose (Dextrose 50% Inj) 0 ml IV STAT PRN; Protocol PRN Reason: Hyglycemia Protocol Last Admin: 09/07/17 17:10 Dose: 50 ml Dextrose (Glutose 15) 0 gm PO ONCE PRN; Protocol PRN Reason: Hypoglycemia Protocol Last Admin: 09/12/17 11:25 Dose: 15 gm Efavirenz/Emtricitabine/Tenofovir (Atripla 600 Mg-200 Mg-300 Mg) 1 tab PO DAILY COUNT INCLUDES [facility] Last Admin: 09/16/17 09:22 Dose: 1 tab Glucagon (Glucagen Diagnostic Kit) 0 mg IM STAT PRN; Protocol PRN Reason: Hypoglycemia Protocol Insulin Aspart (Novolog) 0 unit SC ACHS COUNT INCLUDES THE [facility] PRN Reason: Protocol Last Admin: 09/16/17 12:01 Dose: Not Given Insulin Aspart (Novolog) 4 unit SC AC COUNT INCLUDES THE [facility] Last Admin: 09/16/17 12:15 Dose: Not Given Insulin Detemir (Levemir) 12 unit SC HS COUNT INCLUDES THE [facility] Last Admin: 09/15/17 22:06 Dose: 12 unit Levothyroxine Sodium (Synthroid) 125 mcg PO DAILY@0630 COUNT INCLUDES THE [facility] Last Admin: 09/16/17 06:48 Dose: 125 mcg Ondansetron HCl (Zofran Inj) 4 mg IVP Q6H PRN PRN Reason: Nausea/Vomiting Last Admin: 08/27/17 14:44 Dose: 4 mg Potassium Phos/Sodium Phos (Neutra-Phos) 1 pkt PO TID COUNT INCLUDES THE [facility] Last Admin: 09/16/17 13:58 Dose: 1 pkt Sucralfate (Carafate Oral Susp) 1 gm PO ACBHS COUNT INCLUDES THE [facility] Last Admin: 09/16/17 06:48 Dose: 1 gm Trimethoprim/Sulfamethoxazole (Bactrim Ds Tab) 1 tab PO MWF COUNT INCLUDES THE [facility] Last Admin: 09/15/17 08:34 Dose: 1 tab Valproate Sodium (Depakene Oral Soln) 250 mg PO HS COUNT INCLUDES THE [facility] Valproate Sodium (Depakene Oral Soln) 500 mg PO DAILY COUNT INCLUDES THE [facility] - Labs Labs: 09/16/17 07:00 09/16/17 07:00 PT 11.1 SECONDS (9.7-12.2) 09/08/17 06:26 INR 1.0 09/08/17 06:26 APTT 26 SECONDS (21-34) 09/08/17 06:26 Attending/Attestation - Attestation I have personally seen and examined this patient.: Yes I have fully participated in the care of the patient.: Yes I have reviewed all pertinent clinical information, including history, physical exam and plan: Yes Notes (Text): Patient was seen and examined,alert oriented with on and off confusion. Agrees with the residents assessment and documentation.Neurology follow up appreciated.We will change IV meds to oral Discharge plan discussed with CW 09/16/17 17:01
[2017-09-16] MEDS: (Novolog) Insulin Aspart, Recombinant 100 u/ml 10 ml vial SC SCH ×7 (08:13→21:05)
--- NOTE | 2017-09-16 08:34 | CP.PCM.PN ---
Subjective - Date & Time of Evaluation Date of Evaluation: 09/16/17 Time of Evaluation: 08:31 - Subjective Subjective: Ms. Morel was seen and examined at the bedside. She is alert, oriented, denies any headache, dizziness, nausea, numbness, nausea, or vomiting. She was able to verbalize yesterday's event. There was no untoward events overnight. Objective - Vital Signs/Intake and Output Vital Signs (last 24 hours): Temp Pulse Resp BP Pulse Ox 97.6 F 88 20 147/89 100 09/16/17 07:40 09/16/17 07:40 09/16/17 07:40 09/16/17 07:40 09/16/17 07:40 Intake and Output: 09/16/17 09/16/17 06:59 18:59 Intake Total 760 Output Total 2200 Balance -1440 - Medications Medications: Current Medications Amlodipine Besylate (Norvasc) 5 mg NG DAILY [facility] Last Admin: 09/15/17 10:01 Dose: 5 mg Aspirin (Ecotrin) 81 mg PO DAILY [facility] Last Admin: 09/15/17 10:01 Dose: 81 mg Dexamethasone (Decadron Inj) 4 mg IV Q12 [facility]ESS[facility] Last Admin: 09/15/17 21:27 Dose: 4 mg Dextrose (Dextrose 50% Inj) 0 ml IV STAT PRN; Protocol PRN Reason: Hyglycemia Protocol Last Admin: 09/07/17 17:10 Dose: 50 ml Dextrose (Glutose 15) 0 gm PO ONCE PRN; Protocol PRN Reason: Hypoglycemia Protocol Last Admin: 09/12/17 11:25 Dose: 15 gm Efavirenz/Emtricitabine/Tenofovir (Atripla 600 Mg-200 Mg-300 Mg) 1 tab PO DAILY [facility] Last Admin: 09/15/17 10:00 Dose: 1 tab Glucagon (Glucagen Diagnostic Kit) 0 mg IM STAT PRN; Protocol PRN Reason: Hypoglycemia Protocol Valproate Sodium 250 mg/ (Sodium Chloride) 102.5 mls @ 0 mls/hr IVPB Q12 JESSICA PRN Reason: Per Protocol Last Admin: 09/15/17 21:26 Dose: 100 mls/hr Insulin Aspart (Novolog) 0 unit SC ACHS [facility] PRN Reason: Protocol Last Admin: 09/16/17 08:13 Dose: Not Given Insulin Aspart (Novolog) 4 unit SC AC [facility] Last Admin: 10/23/17 17:30 Dose: 4 unit Insulin Detemir (Levemir) 12 unit SC HS [facility] Last Admin: 09/15/17 22:06 Dose: 12 unit Levothyroxine Sodium (Synthroid) 125 mcg PO DAILY@0630 [facility] Last Admin: 09/16/17 06:48 Dose: 125 mcg Ondansetron HCl (Zofran Inj) 4 mg IVP Q6H PRN PRN Reason: Nausea/Vomiting Last Admin: 08/27/17 14:44 Dose: 4 mg Potassium Phos/Sodium Phos (Neutra-Phos) 1 pkt PO TID [facility] Last Admin: 09/15/17 17:27 Dose: 1 pkt Sucralfate (Carafate Oral Susp) 1 gm PO ACBHS [facility] Last Admin: 09/16/17 06:48 Dose: 1 gm Trimethoprim/Sulfamethoxazole (Bactrim Ds Tab) 1 tab PO MWF [facility] Last Admin: 09/15/17 08:34 Dose: 1 tab - Labs Labs: 09/16/17 07:00 09/16/17 07:00 PT 11.1 SECONDS (9.7-12.2) 09/08/17 06:26 INR 1.0 09/08/17 06:26 APTT 26 SECONDS (21-34) 09/08/17 06:26 - Constitutional Appears: No Acute Distress - Head Exam Head Exam: ATRAUMATIC, NORMAL INSPECTION, NORMOCEPHALIC - Neurological Exam Neurological Exam: Alert, Awake, CN II-XII Intact, Oriented x3 Neuro motor strength exam: Left Upper Extremity: 5, Right Upper Extremity: 5, Left Lower Extremity: 5, Right Lower Extremity: 5 Additional comments: Neurological unchanged from previous examination. Assessment and Plan (1) Encephalopathy acute Assessment & Plan: Case discussed with Dr. Denney, continue all current medical. physical, and occupational therapies. Valproate is increase from 250 mf IVPB Q 12 hours to Valproate 500 mg IVPB in the am and 250 mg IVPB at HS. Status: Acute
[2017-09-16 09:09] LABS: NEUTROPHIL 87 % (50-75); TOTAL CELLS COUNTED 100
[2017-09-16] MEDS: Efavirenz/Emtricitabine/Teno 1 TAB PO SCH (09:22)
[2017-09-16] MEDS: Potassium & Sodium Phosphate PO SCH ×3 (09:23→17:40)
[2017-09-16] MEDS: Dexamethasone 4 mg/1 ml IV SCH (09:23)
[2017-09-16] MEDS ORDERED: Potassium Chloride 20 mEq ER Tab PO ONE (09:45)
[2017-09-16] MEDS ORDERED: Valproate 500 MG in Sodium Chloride 0.9% 100 ML IVPB SCH (10:00)
--- NOTE | 2017-09-16 19:40 | PN ---
DATE: LOCATION: Room 654. SUBJECTIVE: This is a 57 year old female with recent uncontrolled type 1 insulin dependent diabetes, now being followed closely for metabolic management. Her glycemic levels are fluctuating, but much improved at this time and the latest glucose levels have ranged from 145 to 172 mg/dL. LABORATORY DATA: Her latest chemistries include a BUN of 22, sodium of 127, potassium is 3.5, chloride 98, CO2 is 19, glucose is180, and creatinine is 0.8. ASSESSMENT AND PLAN: At this time we will continue the same basal insulin given as Levemir at 4 units subcutaneous at bedtime daily as ordered. We will continue the Novolog given as 4 units subcutaneous t.i.d. before meals as given. We will titrate incremental as indicated to optimize metabolic control. We will follow her and advise accordingly. Nesha Donaldson MD
[2017-09-16] MEDS: Insulin Detemir 100 units/ml Vial (Levemir) SC SCH (21:04)
[2017-09-16] MEDS: Valproic Acid 250 mg/5 ml UD Cup PO SCH (21:05)
[2017-09-16] MEDS ORDERED: Valproate 250 MG in Sodium Chloride 0.9% 100 ML IVPB ONE (22:00)
[2017-09-17] MEDS: Sucralfate 1 gm/10 ml Oral Susp UD PO SCH ×2 (06:38→22:25)
[2017-09-17] MEDS: Levothyroxine 125 MCG TAB PO SCH (06:38)
[2017-09-17] MEDS: (Novolog) Insulin Aspart, Recombinant 100 u/ml 10 ml vial SC SCH ×7 (07:30→22:26)
--- NOTE | 2017-09-17 07:30 | CP.PCM.PN ---
<GlendaFransisco R - Last Filed: 09/17/17 10:24> Subjective - Date & Time of Evaluation Date of Evaluation: 09/17/17 Time of Evaluation: 07:26 - Subjective Subjective: PGY-1 note for medicine, Dr Mzea. Patient was seen and examined at bedside this AM. Per nursing, overnight the patient was restless, confused and disoriented. When I saw her this AM she was AAOx2 (not oriented to time, she believes it's the year 1978). She did not have any specific complaints. She said she wants to go home and expressed that she needs emotional support. She denied chest pain, shortness of breath, abdominal pain, headache, blurry vision, nausea, vomiting, diarrhea. Objective - Vital Signs/Intake and Output Vital Signs (last 24 hours): Temp Pulse Resp BP Pulse Ox 97.5 F L 97 H 20 136/82 96 09/17/17 04:02 09/17/17 04:02 09/17/17 04:02 09/17/17 04:02 09/17/17 04:02 Intake and Output: 09/17/17 09/17/17 06:59 18:59 Intake Total 450 Output Total 1775 Balance -1325 - Medications Medications: Current Medications Amlodipine Besylate (Norvasc) 5 mg NG DAILY [facility] Last Admin: 09/16/17 09:23 Dose: 5 mg Aspirin (Ecotrin) 81 mg PO DAILY [facility] Last Admin: 09/16/17 09:22 Dose: 81 mg Dexamethasone (Decadron) 4 mg PO Q12 [facility] Last Admin: 09/16/17 21:04 Dose: 4 mg Dextrose (Dextrose 50% Inj) 0 ml IV STAT PRN; Protocol PRN Reason: Hyglycemia Protocol Last Admin: 09/07/17 17:10 Dose: 50 ml Dextrose (Glutose 15) 0 gm PO ONCE PRN; Protocol PRN Reason: Hypoglycemia Protocol Last Admin: 09/12/17 11:25 Dose: 15 gm Efavirenz/Emtricitabine/Tenofovir (Atripla 600 Mg-200 Mg-300 Mg) 1 tab PO DAILY [facility] Last Admin: 09/16/17 09:22 Dose: 1 tab Glucagon (Glucagen Diagnostic Kit) 0 mg IM STAT PRN; Protocol PRN Reason: Hypoglycemia Protocol Insulin Aspart (Novolog) 0 unit SC ACHS [facility] PRN Reason: Protocol Last Admin: 09/16/17 21:05 Dose: Not Given Insulin Aspart (Novolog) 4 unit SC AC [facility] Last Admin: 09/16/17 17:41 Dose: 4 unit Insulin Detemir (Levemir) 12 unit SC [facility] Last Admin: 09/16/17 21:04 Dose: 12 unit Levothyroxine Sodium (Synthroid) 125 mcg PO DAILY@0630 [facility] Last Admin: 09/17/17 06:38 Dose: 125 mcg Ondansetron HCl (Zofran Inj) 4 mg IVP Q6H PRN PRN Reason: Nausea/Vomiting Last Admin: 08/27/17 14:44 Dose: 4 mg Potassium Phos/Sodium Phos (Neutra-Phos) 1 pkt PO TID [facility] Last Admin: 09/16/17 17:40 Dose: 1 pkt Sucralfate (Carafate Oral Susp) 1 gm PO ACS [facility] Last Admin: 09/17/17 06:38 Dose: 1 gm Trimethoprim/Sulfamethoxazole (Bactrim Ds Tab) [facility] Last Admin: 09/15/17 08:34 Dose: 1 tab Valproate Sodium (Depakene Oral Soln) 250 mg PO [facility] Last Admin: 09/16/17 21:05 Dose: 250 mg Valproate Sodium (Depakene Oral Soln) 500 mg PO DAILY [facility] - Labs Labs: 09/16/17 07:00 09/16/17 07:00 PT 11.1 SECONDS (9.7-12.2) 09/08/17 06:26 INR 1.0 09/08/17 06:26 APTT 26 SECONDS (21-34) 09/08/17 06:26 - Additional Findings Additional findings: - Constitutional Appears: No Acute Distress - Head Exam Head Exam: ATRAUMATIC, NORMAL INSPECTION - Eye Exam Eye Exam: EOMI - ENT Exam ENT Exam: Mucous Membranes Moist - Respiratory Exam Respiratory Exam: Clear to Ausculation Bilateral, NORMAL BREATHING PATTERN. absent: Accessory Muscle Use, Rales, Rhonchi, Wheezes - Cardiovascular Exam Cardiovascular Exam: REGULAR RHYTHM, RRR, +S1, +S2. absent: Bradycardia, Tachycardia - GI/Abdominal Exam GI & Abdominal Exam: Soft, Normal Bowel Sounds. absent: Tenderness - Extremities Exam Extremities Exam: Normal Capillary Refill, Normal Inspection, Tenderness Additional comments: muscle wasting noted in lower extremities bilaterally stage 1 ulcer noted near rectum with medihoney covering - Neurological Exam Neurological Exam: Alert, Awake, Oriented x3 - Psychiatric Exam Psychiatric exam: Normal Affect, Normal Mood - Skin Skin Exam: Dry, Intact, Normal Color, Warm Additional comments: Assessment and Plan - Assessment and Plan (Free Text) Assessment: AIDS, acute encephalopathy 09/17: Decadron dose decreased from 4 mg PO Q 12 hours to decadron 2 mg PO Q 12 hours 09/16: Valproate is increased from 250 mg IVPB Q 12 hours to Valproate 500 mg IVPB in the am and 250 mg IVPB at HS. Her Decadron and Valproate was switched from IV to PO as patient is tolerating PO. 09/14: Patient has been stable over the weekend, no calls. Energy level is improving. Continue to have PT coming and working with the patient. Follow neuro recs on deacdron taper. Look to discharge to rehab once patient has improved strength. Continue medical management at this time. Spoke with patient' s son, Twan, on Thursday 09/13. He was given an update and informed that we will not be performing a LP on the patient at this time due to risk outweighing benefits at this time. Informed him that we will look to discharge patient to rehab center, [place], once patient is stable. 09/13: Patient's mental status is remaining stable. Her energy level is slightly improved today. Will follow surgery recommendations for decadron taper. Pink catheter was changed yesterday. The patient's sacral area was examined yesterday to discover the start of a sacral decubitus ulcer. Nurses currently applying medi-honey to affected area. Patient is to continue with PT to attempt to gain strength to get out of bed. Continue current medical management for now. 09/12: Continue to monitor patient's cognitive function as we continue to taper down decadron. Patient's mental status was stable compared to yesterday. Neurology has decided to hold off of LP at this time due to the procedure being a greater risk to the patient as we do not think that she could stay still for the duration of the procedure. We do not want to use anesthesia or anything that may alter the patient's cognitive function. 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 09/11: per neuro note, increase valproate 250 mg IVPB to every 12 hours from daily and decrease decadron 4 mg IV every 6 hours to every 12 hours. Will continue all other medical management at this time. Patient started on Glucerna meal supplements due to poor oral intake. 09/10: Vanco trough = 18.65 - Vanco restarted. Awaiting neurology recommendations in regards to LP. Patient mental status is continuing to improve. Continue current medical management. PEG placement on hold until further notice due to return of cognitive function and ability to feed her self. Continue to monitor closely. f/u PT recommendations. 09/09: Pt is AAOx3 today and is much more alert today. Her NG tube was pulled this morning and swallow evaluation was done this morning. Patient showed no signs of aspiration (cough/throat clearing) and was cleared for a regular diet. She is scheduled for a brain MRI this morning to re-evaluate for PML. Patient was not given any sedative for MRI per Dr. Denney because we do not want to negatively affect her cognitive function. Depending on the results, Dr. Denney will determine if a LP is necessary or not. PEG tube placement is still on hold as patient's mental status appears to be improving and may be able to feed herself. 09/08: Per Neuro note, it appears LP is tentatively scheduled for tomorrow, sunday 09/09. Platelet count is 154 today. Patient is more alert and awake, answering questions today. Patient still appears very lethargic and weak. Per GI , PEG tube placement will remain pending for further observation of hospital course. GI would like ID eval for potential infectious complications of PEG tube placement. 09/06: Spoke to Dr. Denney. Given that her platelets have risen, we ordered an LP to be done under fluoro for Friday. 09/05: Patient shakes head yes and no to questions today and actually spoke! When asked where she was, patient responded with, "the hospital." Patient is still very lethargic, but cognition appears to be improving. Will continue to monitor. Patient is still currently receiving tube feedings through the NG tube. Dr. Cervantes re-consulted for PEG tube evaluation. Spoke to Dr. Cervantes about PEG tube evaluation, he requested that someone else be consulted since he has not seen the patient since . Discussed with Dr. Oshea, he requested specifically that Dr. Estrada be consulted for a second GI opinion. Dr. Estrada's fellow Dr. Shah called and informed. Dr. Shah stated that he will see the patient in the morning tomorrow and will plan for PEG placement either friday or friday next week. 09/03: Patient's platelets still too low for LP even after multiple platelet transfusions. Dr. Denney is requesting platelets be >75. Will discuss with Dr. Denney possibility of performing a LP shortly after a platelet transfusion is completed. Will need to be transfused more platelets. Dr. Denney would like to perform LP under anesthesia due to patient's mental status and inability to follow commands properly. 09/01: Patient was unable to be awoken today. She responded to painful stimuli by pulling away and moaning. She was able to move all four extremities. Discussed with patient's that the patient's prognosis is very poor. He states he understands. Patient will likely need a LP to acquire CSF fluid for further eval. Transfused 1 unit of platelets today. f/u EEG discontinued morphine 08/31: She is somulent. Able to open eyes, random slow movements of arms and legs. Not following any commands. She was started on IV decardon yesterday. She will likley need LP to aquire CSF in the future to again test for JAGUAR virus since imaging via MRI is suggesting progressive multifocal leukoencephalopathy. Previous testing of JAGUAR virus were negative. This being said her platelet count is very low, transfusing 1 unit today. Pending hematology evaluation. 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 Neck MRA 08/29/17: No significant stenosis seen in the visualized bilateral common or internal carotid arteries. Mild right ICA proximal stenosis is identified with plaque identified at the right carotid bulb. Widely patent bilateral common carotids but otherwise, as imaged. Symmetric vertebrobasilar circulation. Head MRA 08/29/17: Suboptimal diagnostic quality due to motion degraded images, allowing for this, no occlusion. Apparent narrowing in bilateral M1 segments could be related to motion artifacts. Brain MRI 09/09/17: Diminishing bilateral thalamic signal abnormality though bilateral cerebral white matter signal changes are not significantly changed. No acute intracranial findings Patient potentially had a seizure over night. CT (08/22) was negative for any acute findings. Brain MRI was ordered for f/u. patient has not had any more events since then Neurology Consulted, Dr. Denney --> Help appreciated; states that all changes in AMS are most likely due to AIDS Brain MRI w/o contrast(08/22) - Mild diffuse/confluent nonspecific white matter changes as described. Findings are of uncertain etiology though could represent sequela of HIV encephalopathy. PML not excluded. See above discussion for additional differential diagnostic considerations. Questionable secretions/opacification of exuberantly aerated mastoid air cells ramyfing into the left petrous apex however the possibility apical petrositis or small the left petrous CT apex cholesterol granuloma. Repeat Head CT w/o contrast 08/28/17 - Significant motion artifact limits this exam however interval edema is identified at the right greater than left basal ganglia and thalami as well as the bilateral occipital lobes and the right parietal lobe. Is difficult to determine definitively though this is vasogenic or cytotoxic however embolic infarction is questioned. Given the basal ganglia and thalami being affected focally, and anoxic insult is included in the differential diagnosis or even though there is no global loss of vaca-white matter differentiation and edema in this patient. Infectious or metabolic etiologies are not excluded but are not favored. * EEG ordered for morning of 08/23: This is a probably normal EEG. There was increased beta activity noticed intermittently. This could be a normal finding. No focal slowing no seizure like activity was observed. Correlation with clinical findings is needed. 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 Opportunistic Infection ID Dr. Meneses --> help appreciated * Continue Diflucan, bactrim * Started Atripla started 08/27/17 - CT head 08/11 - Negative - MRI 08/12 - unremarkable - LDH - 478 - CD4 - 72 (AIDS confirmed) -->repeat 110 - HIV-1 RNA Qnt (RT-PCR) - 5.80 high - Viral Load: Must r/o infectious causes * CMV - IgG > 10; IgM <30; Dennotes previous infection, no acute infection * Crypto - <1:2 * RPR - nonreactive * Toxoplasma - IgG < 7.2; IgM < 8 - Patient started on empiric antibiotic therapy on Wednesday 09/05 with Aztreonam and Vancomyocin due to rising leukocytosis. Leukocytosis improving 20.6 --> 15.8. Aztreoname and vancomycin discontinued on 09/15/17. AIDS 09/09: Continue on Atripla 08/31: On Atripla at this time. This is being crushed and given via NGT * Dr. Meneses recs * Bactrim DS 1 tab PO M/W/F * Atripla [id number](Efavirenz/Emtricitabine/Teno) 1 tab PO daily - script written and placed in chart for pt's to cloth picker and fill, so when patient is discharged to [facility], he will be able to take her medication with her, as [facility] does not usually provide HARRT medications. Dr. Sahu discussed with pt's , Emiliano Hoang, on the phone. He stated he understands and will cloth picker prescription to fill it by 08/28. * Neupogen given 08/25 * HIV screen Positive, CD4 = 72, repeat CD4 = 110 * hep panel negative * Will f/u recs for HARRT therapy upon discharge. * Patient will need to follow up with HIV clinic for continuation of HARRT therapy as out patient. * [facility] - Clinic at [address], [place] * [facility] - Clinic at [address], [place] Phone Anemia; most likely 2/2 to advanced AIDS 09/08: Hg 9.8; platelets increased to 154 09/06: Platelet count gracia to 130 08/31: Patient's platelet count continues to decrease, conset recived for one unit of platelets to be given * Improved to Hgb of 12.7 from 7.1 - patient given 2 units pRBCs on 08/26/17 ( consent given by , Emiliano Hoang, on phone) * continue to monitor Diabetes hypoglycemia protocol RISS only for now Endo consulted, Dr. Nesha Donaldson; appreciate recs * Levemir 8units SC Q12 * ISS low HgA1C - 7.1 accuchecks q6h Continue to monitor Hyponatremia; resolved * STOPPED medications due to potential s/e of hyponatremia * Zoloft, Trazodone and IV fluids. * Nephro Consult, Dr. Wong - help appreciated, f/u recs * urine sodium 113 --> 43 * urine osmol 502 --> 176 * serum osmol 276 * will continue to monitor Dysphagia; resolved Chest CT * particulate matter, possibly food, identified within the esophageal lumen intermixed with gas. * Incidental 6mm nodule within superior right breast. CXR * no acute cardiopulmonary disease Neck soft tissue CT * Abnormal circumferential thickening noted of the cervical esophagus. findings could be due to reflux esophagitis but esophageal carcinoma is not excluded. GI consulted, Dr. 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 Prophylactic Care * Heparin 5000u sc q8h - DC'ed due to anemia * SCDs for DVT ppx * Pepcid 20 ivp daily * Fall precautions DISPO: Once patient is stable, she has been approved for placement at [facility] per case management. We are waiting on patient's daughter to complete and return paperwork. <Wilner Meza - Last Filed: 09/17/17 14:13> Objective - Vital Signs/Intake and Output Vital Signs (last 24 hours): Temp Pulse Resp BP Pulse Ox 99.2 F 90 20 147/100 H 99 09/17/17 07:25 09/17/17 08:00 09/17/17 07:25 09/17/17 07:25 09/17/17 07:25 Intake and Output: 09/17/17 09/17/17 06:59 18:59 Intake Total 450 Output Total 1775 Balance -1325 - Medications Medications: Current Medications Amlodipine Besylate (Norvasc) 5 mg NG DAILY [facility] Last Admin: 09/17/17 09:06 Dose: 5 mg Aspirin (Ecotrin) 81 mg PO DAILY [facility] Last Admin: 09/17/17 09:04 Dose: 81 mg Dexamethasone (Decadron) 2 mg PO Q12 [facility] Dextrose (Dextrose 50% Inj) 0 ml IV STAT PRN; Protocol PRN Reason: Hyglycemia Protocol Last Admin: 09/07/17 17:10 Dose: 50 ml Dextrose (Glutose 15) 0 gm PO ONCE PRN; Protocol PRN Reason: Hypoglycemia Protocol Last Admin: 09/12/17 11:25 Dose: 15 gm Efavirenz/Emtricitabine/Tenofovir (Atripla 600 Mg-200 Mg-300 Mg) 1 tab PO DAILY [facility] Last Admin: 09/17/17 09:06 Dose: 1 tab Glucagon (Glucagen Diagnostic Kit) 0 mg IM STAT PRN; Protocol PRN Reason: Hypoglycemia Protocol Insulin Aspart (Novolog) 0 unit SC [facility] PRN Reason: Protocol Last Admin: 09/17/17 12:16 Dose: Not Given Insulin Aspart (Novolog) 4 unit SC AC [facility] Last Admin: 09/17/17 13:37 Dose: 4 unit Insulin Detemir (Levemir) 12 unit SC HS [facility] Last Admin: 09/16/17 21:04 Dose: 12 unit Levothyroxine Sodium (Synthroid) 125 mcg PO DAILY@0630 [facility] Last Admin: 09/17/17 06:38 Dose: 125 mcg Ondansetron HCl (Zofran Inj) 4 mg IVP Q6H PRN PRN Reason: Nausea/Vomiting Last Admin: 08/27/17 14:44 Dose: 4 mg Potassium Phos/Sodium Phos (Neutra-Phos) 1 pkt PO TID [facility] Last Admin: 09/17/17 13:37 Dose: 1 pkt Sucralfate (Carafate Oral Susp) 1 gm PO [facility] Last Admin: 09/17/17 06:38 Dose: 1 gm Trimethoprim/Sulfamethoxazole (Bactrim Ds Tab) 1 tab PO MWF [facility] Last Admin: 09/17/17 09:04 Dose: 1 tab Valproate Sodium (Depakene Oral Soln) 250 mg PO HS [facility] Last Admin: 09/16/17 21:05 Dose: 250 mg Valproate Sodium (Depakene Oral Soln) 500 mg PO DAILY [facility] Last Admin: 09/17/17 09:07 Dose: 500 mg - Labs Labs: 09/17/17 07:06 09/17/17 07:06 PT 11.1 SECONDS (9.7-12.2) 09/08/17 06:26 INR 1.0 09/08/17 06:26 APTT 26 SECONDS (21-34) 09/08/17 06:26 Attending/Attestation - Attestation I have personally seen and examined this patient.: Yes I have fully participated in the care of the patient.: Yes I have reviewed all pertinent clinical information, including history, physical exam and plan: Yes Notes (Text): The patient was seen and examined at bedside this morning. She was lying comfortably . She was alert and oriented and conversational. Little anxious.Pointing her [employer] "He saved my life ,correct me if I am wrong" She denied pain discussed with the resident.Agree with the documentation of assessment and plan. Awaiting for rehab placement.continue current meds
[2017-09-17 08:07] LABS: BASO # 0.1 K/uL (0.0-0.2); BASO % 0.7 % (0.0-2.0); EOS % 0.1 % (0.0-4.0); HEMATOCRIT 22.5 % (34.0-47.0); LYMPH # 0.9 K/uL (1.0-4.3); MEAN CORPUSCULAR HEMOGLOBIN 30.6 pg (27.0-31.0); MEAN CORPUSCULAR HGB CONC 35.6 g/dL (33.0-37.0); MEAN PLATELET VOLUME 8.9 fL (7.2-11.7); MONO # 0.4 K/uL (0.0-0.8); MONO % 4.6 % (0.0-10.0); RED CELL DISTRIBUTION WIDTH 14.5 % (11.5-14.5); WHITE BLOOD COUNT 8.8 K/uL (4.8-10.8)
[2017-09-17 08:11] LABS: CHLORIDE 100 mmol/L (98-107)
[2017-09-17 08:12] LABS: POTASSIUM 3.6 mmol/L (3.6-5.2); SODIUM 128 mmol/L (132-148)
[2017-09-17 08:14] LABS: ALB/GLOB RATIO 0.9 (1.0-2.1); AST/SGOT 28 U/L (14-36); BILIRUBIN,TOTAL 0.6 mg/dL (0.2-1.3); BLOOD UREA NITROGEN 20 mg/dL (7-17); CARBON DIOXIDE 18 mmol/L (22-30); GFR AFRICAN-AMERICAN > 60; TOTAL PROTEIN 7.3 g/dL (6.3-8.3)
[2017-09-17 08:15] LABS: ALKALINE PHOSPHATASE 109 U/L (38-126); ALT/SGPT 42 U/L (9-52); CALCIUM 8.8 mg/dl (8.6-10.4); GLUCOSE,RANDOM 108 mg/dL (65-105)
--- NOTE | 2017-09-17 08:44 | CP.PCM.PN ---
Subjective - Date & Time of Evaluation Date of Evaluation: 09/17/17 Time of Evaluation: 08:43 - Subjective Subjective: Ms. Morel was seen and examined at the bedside. She is alert to name and place, but not year. She denies any headache, dizziness, nausea, or vomiting. She is restless and agitated in bed, able to redirect accordingly. She claims of improving appetite and would like to have another breakfast tray. She is not in any kind of distress. There was no untoward events overnight. Objective - Vital Signs/Intake and Output Vital Signs (last 24 hours): Temp Pulse Resp BP Pulse Ox 97.5 F L 90 20 136/82 96 09/17/17 04:02 09/17/17 08:00 09/17/17 04:02 09/17/17 04:02 09/17/17 04:02 Intake and Output: 09/17/17 09/17/17 06:59 18:59 Intake Total 450 Output Total 1775 Balance -1325 - Medications Medications: Current Medications Amlodipine Besylate (Norvasc) 5 mg NG DAILY [facility] Last Admin: 09/16/17 09:23 Dose: 5 mg Aspirin (Ecotrin) 81 mg PO DAILY [facility] Last Admin: 09/16/17 09:22 Dose: 81 mg Dexamethasone (Decadron) 4 mg PO Q12 [facility] Last Admin: 09/16/17 21:04 Dose: 4 mg Dextrose (Dextrose 50% Inj) 0 ml IV STAT PRN; Protocol PRN Reason: Hyglycemia Protocol Last Admin: 09/07/17 17:10 Dose: 50 ml Dextrose (Glutose 15) 0 gm PO ONCE PRN; Protocol PRN Reason: Hypoglycemia Protocol Last Admin: 09/12/17 11:25 Dose: 15 gm Efavirenz/Emtricitabine/Tenofovir (Atripla 600 Mg-200 Mg-300 Mg) 1 tab PO DAILY [facility] Last Admin: 09/16/17 09:22 Dose: 1 tab Glucagon (Glucagen Diagnostic Kit) 0 mg IM STAT PRN; Protocol PRN Reason: Hypoglycemia Protocol Insulin Aspart (Novolog) 0 unit SC ACHS [facility] PRN Reason: Protocol Last Admin: 09/17/17 07:30 Dose: Not Given Insulin Aspart (Novolog) 4 unit SC AC [facility] Last Admin: 09/17/17 07:30 Dose: Not Given Insulin Detemir (Levemir) 12 unit SC [facility] Last Admin: 09/16/17 21:04 Dose: 12 unit Levothyroxine Sodium (Synthroid) 125 mcg PO DAILY@0630 [facility] Last Admin: 09/17/17 06:38 Dose: 125 mcg Ondansetron HCl (Zofran Inj) 4 mg IVP Q6H PRN PRN Reason: Nausea/Vomiting Last Admin: 08/27/17 14:44 Dose: 4 mg Potassium Phos/Sodium Phos (Neutra-Phos) 1 pkt PO TID [facility] Last Admin: 09/16/17 17:40 Dose: 1 pkt Sucralfate (Carafate Oral Susp) 1 gm PO [facility] Last Admin: 09/17/17 06:38 Dose: 1 gm Trimethoprim/Sulfamethoxazole (Bactrim Ds Tab) 1 tab PO MWF [facility] Last Admin: 09/15/17 08:34 Dose: 1 tab Valproate Sodium (Depakene Oral Soln) 250 mg PO [facility] Last Admin: 09/16/17 21:05 Dose: 250 mg Valproate Sodium (Depakene Oral Soln) 500 mg PO DAILY [facility] - Labs Labs: 09/17/17 07:06 09/17/17 07:06 PT 11.1 SECONDS (9.7-12.2) 09/08/17 06:26 INR 1.0 09/08/17 06:26 APTT 26 SECONDS (21-34) 09/08/17 06:26 - Constitutional Appears: No Acute Distress - Head Exam Head Exam: ATRAUMATIC, NORMAL INSPECTION, NORMOCEPHALIC - Neurological Exam Neurological Exam: Alert, Awake Neuro motor strength exam: Left Upper Extremity: 5, Right Upper Extremity: 5, Left Lower Extremity: 5, Right Lower Extremity: 5 Additional comments: She is restless, but able to follow commands. Sensation remains intact. Assessment and Plan (1) Encephalopathy acute Assessment & Plan: Case discussed with Dr. Denney, continue all current medical, physical, and occupational therapies. Recommend to decrease the decadron from 4 mg PO Q 12 hours to decadron 2 mg PO Q 12 hours. Status: Acute
[2017-09-17] MEDS: Tmp-Smz 800 mg-160 mg DS Tab PO SCH (09:04)
[2017-09-17] MEDS: Potassium & Sodium Phosphate PO SCH ×3 (09:06→17:37)
[2017-09-17] MEDS: Efavirenz/Emtricitabine/Teno 1 TAB PO SCH (09:06)
[2017-09-17] MEDS: Valproic Acid 250 mg/5 ml UD Cup PO SCH ×2 (09:07→22:24)
--- NOTE | 2017-09-17 17:42 | CP.PCM.PN ---
Subjective - Date & Time of Evaluation Date of Evaluation: 09/17/17 Time of Evaluation: 08:00 - Subjective Subjective: afeb nad improving Objective - Vital Signs/Intake and Output Vital Signs (last 24 hours): Temp Pulse Resp BP Pulse Ox 99.2 F 90 20 147/100 H 99 09/17/17 07:25 09/17/17 08:00 09/17/17 07:25 09/17/17 07:25 09/17/17 07:25 Intake and Output: 09/17/17 09/17/17 06:59 18:59 Intake Total 450 Output Total 1775 600 Balance -1325 -600 - Medications Medications: Current Medications Amlodipine Besylate (Norvasc) 5 mg NG DAILY [facility] Last Admin: 09/17/17 09:06 Dose: 5 mg Aspirin (Ecotrin) 81 mg PO DAILY [facility] Last Admin: 09/17/17 09:04 Dose: 81 mg Dexamethasone (Decadron) 2 mg PO Q12 [facility] Dextrose (Dextrose 50% Inj) 0 ml IV STAT PRN; Protocol PRN Reason: Hyglycemia Protocol Last Admin: 09/07/17 17:10 Dose: 50 ml Dextrose (Glutose 15) 0 gm PO ONCE PRN; Protocol PRN Reason: Hypoglycemia Protocol Last Admin: 09/12/17 11:25 Dose: 15 gm Efavirenz/Emtricitabine/Tenofovir (Atripla 600 Mg-200 Mg-300 Mg) 1 tab PO DAILY [facility] Last Admin: 09/17/17 09:06 Dose: 1 tab Glucagon (Glucagen Diagnostic Kit) 0 mg IM STAT PRN; Protocol PRN Reason: Hypoglycemia Protocol Insulin Aspart (Novolog) 0 unit SC ACHS [facility] PRN Reason: Protocol Last Admin: 09/17/17 17:39 Dose: Not Given Insulin Aspart (Novolog) 6 unit SC AC [facility] Last Admin: 09/17/17 17:40 Dose: Not Given Insulin Detemir (Levemir) 16 unit SC HS [facility] Levothyroxine Sodium (Synthroid) 125 mcg PO DAILY@0630 [facility] Last Admin: 09/17/17 06:38 Dose: 125 mcg Ondansetron HCl (Zofran Inj) 4 mg IVP Q6H PRN PRN Reason: Nausea/Vomiting Last Admin: 08/27/17 14:44 Dose: 4 mg Potassium Phos/Sodium Phos (Neutra-Phos) 1 pkt PO TID [facility] Last Admin: 09/17/17 17:37 Dose: 1 pkt Sucralfate (Carafate Oral Susp) 1 gm PO ACBHS [facility] Last Admin: 09/17/17 06:38 Dose: 1 gm Trimethoprim/Sulfamethoxazole (Bactrim Ds Tab) 1 tab PO MWF [facility] Last Admin: 09/17/17 09:04 Dose: 1 tab Valproate Sodium (Depakene Oral Soln) 250 mg PO HS [facility] Last Admin: 09/16/17 21:05 Dose: 250 mg Valproate Sodium (Depakene Oral Soln) 500 mg PO DAILY [facility] Last Admin: 09/17/17 09:07 Dose: 500 mg - Labs Labs: 09/17/17 07:06 09/17/17 07:06 PT 11.1 SECONDS (9.7-12.2) 09/08/17 06:26 INR 1.0 09/08/17 06:26 APTT 26 SECONDS (21-34) 09/08/17 06:26 - Constitutional Appears: Chronically Ill - Head Exam Head Exam: NORMOCEPHALIC - Eye Exam Eye Exam: PERRL - ENT Exam ENT Exam: Mucous Membranes Dry - Neck Exam Neck Exam: absent: Lymphadenopathy - Respiratory Exam Respiratory Exam: Decreased Breath Sounds - Cardiovascular Exam Cardiovascular Exam: REGULAR RHYTHM - GI/Abdominal Exam GI & Abdominal Exam: Distended, Soft - Rectal Exam Rectal Exam: Deferred Assessment and Plan (1) HIV (human immunodeficiency virus infection) Status: Acute (2) HIV (human immunodeficiency virus infection) Status: Acute (3) Encephalopathy acute Status: Acute (4) Leukocytosis Status: Acute
--- NOTE | 2017-09-17 19:10 | PN ---
DATE: ENDOCRINOLOGY FOLLOWUP NOTE LOCATION: In room 654. SUBJECTIVE: This is a 57-year-old female with recent uncontrolled type 1 insulin dependent diabetes, now being followed closely for metabolic management as noted. She continues to have persistent glycemic fluctuations with recent hyperglycemic accelerations as noted thereof. Her latest glucose levels have ranged from 129 to 299 mg/dL. Her latest chemistry showed a BUN of 20, sodium 128, potassium 3.6, chloride 100, CO2 of 18, glucose 108, and creatinine 0.7. So at this time, we will modify once again her basal and bolus insulin regimen and increase the Levemir to 16 units subcutaneous at bedtime daily to start tonight. We will continue the low dose correction scale using NovoLog insulin as given. We will also increase and titrate her NovoLog to 6 units subcutaneous t.i.d. before meal as given. We will titrate incrementally as indicated to optimize metabolic control. We will obtain serial chemistries and supplement accordingly as needed. We will follow. Nesha Donaldson MD
[2017-09-17] MEDS: Insulin Detemir 100 units/ml Vial (Levemir) SC SCH (22:25)
[2017-09-18 04:44] VITALS: RESP 20
[2017-09-18 06:34] LABS: BASO # 0.3 K/uL (0.0-0.2); BASO % 2.7 % (0.0-2.0); EOS # 0.1 K/uL (0.0-0.7); EOS % 1.3 % (0.0-4.0); LYMPH # 0.7 K/uL (1.0-4.3); MEAN CELL VOLUME 85.7 fL (81.0-99.0); MEAN CORPUSCULAR HGB CONC 36.1 g/dL (33.0-37.0); MONO # 0.8 K/uL (0.0-0.8); PLATELET COUNT 175 K/uL (130-400); RED CELL DISTRIBUTION WIDTH 14.8 % (11.5-14.5); WHITE BLOOD COUNT 9.4 K/uL (4.8-10.8)
[2017-09-18 06:44] LABS: CHLORIDE 92 mmol/L (98-107); POTASSIUM 3.8 mmol/L (3.6-5.2); SODIUM 124 mmol/L (132-148)
[2017-09-18 06:46] LABS: GFR AFRICAN-AMERICAN > 60
[2017-09-18 06:47] LABS: ALKALINE PHOSPHATASE 146 U/L (38-126); ALT/SGPT 54 U/L (9-52); AST/SGOT 22 U/L (14-36); BILIRUBIN,TOTAL 0.4 mg/dL (0.2-1.3); BLOOD UREA NITROGEN 22 mg/dL (7-17); CARBON DIOXIDE 20 mmol/L (22-30); GLUCOSE,RANDOM 294 mg/dL (65-105); TOTAL PROTEIN 7.2 g/dL (6.3-8.3)
[2017-09-18] MEDS: Levothyroxine 125 MCG TAB PO SCH (07:02)
--- NOTE | 2017-09-18 07:22 | CP.PCM.PN ---
<GlendaFransisco R - Last Filed: 09/18/17 07:18> Subjective - Date & Time of Evaluation Date of Evaluation: 09/18/17 Time of Evaluation: 07:18 - Subjective Subjective: PGY-1 note for medicine, Dr Meza. Per night-time resident, overnight the patient complained of back pain, she was given tylenol. Overnight she was again restless and was given benadryl which calmed her down. Patient was seen and examined at bedside this AM. Mental status is unchanged, today she believes she's at the dentist office. She is able to follow commands. She denied chest pain, shortness of breath, abdominal pain, headache, blurry vision, nausea, vomiting, diarrhea. Objective - Vital Signs/Intake and Output Vital Signs (last 24 hours): Temp Pulse Resp BP Pulse Ox 97.9 F 87 20 153/88 H 96 09/18/17 03:00 09/18/17 03:27 09/18/17 03:00 09/18/17 03:00 09/18/17 03:00 Intake and Output: 09/18/17 09/18/17 06:59 18:59 Output Total 2049 Balance -2049 - Medications Medications: Current Medications Amlodipine Besylate (Norvasc) 5 mg NG DAILY [facility] Last Admin: 09/17/17 09:06 Dose: 5 mg Aspirin (Ecotrin) 81 mg PO DAILY [facility] Last Admin: 09/17/17 09:04 Dose: 81 mg Dexamethasone (Decadron) 2 mg PO Q12 [facility] Dextrose (Dextrose 50% Inj) 0 ml IV STAT PRN; Protocol PRN Reason: Hyglycemia Protocol Last Admin: 09/07/17 17:10 Dose: 50 ml Dextrose (Glutose 15) 0 gm PO ONCE PRN; Protocol PRN Reason: Hypoglycemia Protocol Last Admin: 09/12/17 11:25 Dose: 15 gm Efavirenz/Emtricitabine/Tenofovir (Atripla 600 Mg-200 Mg-300 Mg) 1 tab PO DAILY [facility] Last Admin: 09/17/17 09:06 Dose: 1 tab Glucagon (Glucagen Diagnostic Kit) 0 mg IM STAT PRN; Protocol PRN Reason: Hypoglycemia Protocol Insulin Aspart (Novolog) 0 unit SC ACHS [facility] PRN Reason: Protocol Last Admin: 09/17/17 22:26 Dose: 3 unit Insulin Aspart (Novolog) 6 unit SC [facility] Last Admin: 09/17/17 17:40 Dose: Not Given Insulin Detemir (Levemir) 16 unit SC [facility] Last Admin: 09/17/17 22:25 Dose: 16 unit Levothyroxine Sodium (Synthroid) 125 mcg PO DAILY@0630 [facility] Last Admin: 09/18/17 07:02 Dose: 125 mcg Ondansetron HCl (Zofran Inj) 4 mg IVP Q6H PRN PRN Reason: Nausea/Vomiting Last Admin: 08/27/17 14:44 Dose: 4 mg Potassium Phos/Sodium Phos (Neutra-Phos) 1 pkt PO TID [facility] Last Admin: 09/17/17 17:37 Dose: 1 pkt Sucralfate (Carafate Oral Susp) 1 gm PO ACS [facility] Last Admin: 09/17/17 22:25 Dose: 1 gm Trimethoprim/Sulfamethoxazole (Bactrim Ds Tab) 1 tab PO F [facility] Last Admin: 09/17/17 09:04 Dose: 1 tab Valproate Sodium (Depakene Oral Soln) 250 mg PO [facility] Last Admin: 09/17/17 22:24 Dose: 250 mg Valproate Sodium (Depakene Oral Soln) 500 mg PO DAILY [facility] Last Admin: 09/17/17 09:07 Dose: 500 mg - Labs Labs: 09/18/17 06:19 09/18/17 06:19 PT 11.1 SECONDS (9.7-12.2) 09/08/17 06:26 INR 1.0 09/08/17 06:26 APTT 26 SECONDS (21-34) 09/08/17 06:26 - Additional Findings Additional findings: - Constitutional Appears: No Acute Distress - Head Exam Head Exam: ATRAUMATIC, NORMAL INSPECTION - Eye Exam Eye Exam: EOMI - ENT Exam ENT Exam: Mucous Membranes Moist - Respiratory Exam Respiratory Exam: Clear to Ausculation Bilateral, NORMAL BREATHING PATTERN. absent: Accessory Muscle Use, Rales, Rhonchi, Wheezes - Cardiovascular Exam Cardiovascular Exam: REGULAR RHYTHM, RRR, +S1, +S2. absent: Bradycardia, Tachycardia - GI/Abdominal Exam GI & Abdominal Exam: Soft, Normal Bowel Sounds. absent: Tenderness - Extremities Exam Extremities Exam: Normal Capillary Refill, Normal Inspection, Tenderness Additional comments: muscle wasting noted in lower extremities below knees bilaterally stage 1 ulcer noted near rectum with medihoney covering - Neurological Exam Neurological Exam: Alert, Awake, Oriented x2, Able to follow commands - Psychiatric Exam Psychiatric exam: Normal Affect, Normal Mood - Skin Skin Exam: Dry, Intact, Normal Color, Warm Additional comments: Assessment and Plan - Assessment and Plan (Free Text) Assessment: AIDS, acute encephalopathy 09/17: Decadron dose decreased from 4 mg PO Q 12 hours to decadron 2 mg PO Q 12 hours 09/16: Valproate is increased from 250 mg IVPB Q 12 hours to Valproate 500 mg IVPB in the am and 250 mg IVPB at HS. Her Decadron and Valproate was switched from IV to PO as patient is tolerating PO. 09/14: Patient has been stable over the weekend, no calls. Energy level is improving. Continue to have PT coming and working with the patient. Follow neuro recs on deacdron taper. Look to discharge to rehab once patient has improved strength. Continue medical management at this time. Spoke with patient' s son, Twan, on Thursday 09/13. He was given an update and informed that we will not be performing a LP on the patient at this time due to risk outweighing benefits at this time. Informed him that we will look to discharge patient to rehab center, [facility], once patient is stable. 09/13: Patient's mental status is remaining stable. Her energy level is slightly improved today. Will follow surgery recommendations for decadron taper. Pink catheter was changed yesterday. The patient's sacral area was examined yesterday to discover the start of a sacral decubitus ulcer. Nurses currently applying medi-honey to affected area. Patient is to continue with PT to attempt to gain strength to get out of bed. Continue current medical management for now. 09/12: Continue to monitor patient's cognitive function as we continue to taper down decadron. Patient's mental status was stable compared to yesterday. Neurology has decided to hold off of LP at this time due to the procedure being a greater risk to the patient as we do not think that she could stay still for the duration of the procedure. We do not want to use anesthesia or anything that may alter the patient's cognitive function. 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 09/11: per neuro note, increase valproate 250 mg IVPB to every 12 hours from daily and decrease decadron 4 mg IV every 6 hours to every 12 hours. Will continue all other medical management at this time. Patient started on Glucerna meal supplements due to poor oral intake. 09/10: Vanco trough = 18.65 - Vanco restarted. Awaiting neurology recommendations in regards to LP. Patient mental status is continuing to improve. Continue current medical management. PEG placement on hold until further notice due to return of cognitive function and ability to feed her self. Continue to monitor closely. f/u PT recommendations. 09/09: Pt is AAOx3 today and is much more alert today. Her NG tube was pulled this morning and swallow evaluation was done this morning. Patient showed no signs of aspiration (cough/throat clearing) and was cleared for a regular diet. She is scheduled for a brain MRI this morning to re-evaluate for PML. Patient was not given any sedative for MRI per Dr. Denney because we do not want to negatively affect her cognitive function. Depending on the results, Dr. Denney will determine if a LP is necessary or not. PEG tube placement is still on hold as patient's mental status appears to be improving and may be able to feed herself. 09/08: Per Neuro note, it appears LP is tentatively scheduled for tomorrow, sunday 09/09. Platelet count is 154 today. Patient is more alert and awake, answering questions today. Patient still appears very lethargic and weak. Per GI , PEG tube placement will remain pending for further observation of hospital course. GI would like ID eval for potential infectious complications of PEG tube placement. 09/06: Spoke to Dr. Denney. Given that her platelets have risen, we ordered an LP to be done under fluoro for Friday. 09/05: Patient shakes head yes and no to questions today and actually spoke! When asked where she was, patient responded with, "the hospital." Patient is still very lethargic, but cognition appears to be improving. Will continue to monitor. Patient is still currently receiving tube feedings through the NG tube. Dr. Cervantes re-consulted for PEG tube evaluation. Spoke to Dr. Cervantes about PEG tube evaluation, he requested that someone else be consulted since he has not seen the patient since . Discussed with Dr. Oshea, he requested specifically that Dr. Estrada be consulted for a second GI opinion. Dr. Estrada's fellow Dr. Shah called and informed. Dr. Shah stated that he will see the patient in the morning tomorrow and will plan for PEG placement either friday or friday next week. 09/03: Patient's platelets still too low for LP even after multiple platelet transfusions. Dr. Denney is requesting platelets be >75. Will discuss with Dr. Denney possibility of performing a LP shortly after a platelet transfusion is completed. Will need to be transfused more platelets. Dr. Denney would like to perform LP under anesthesia due to patient's mental status and inability to follow commands properly. 09/01: Patient was unable to be awoken today. She responded to painful stimuli by pulling away and moaning. She was able to move all four extremities. Discussed with patient's that the patient's prognosis is very poor. He states he understands. Patient will likely need a LP to acquire CSF fluid for further eval. Transfused 1 unit of platelets today. f/u EEG discontinued morphine 08/31: She is somulent. Able to open eyes, random slow movements of arms and legs. Not following any commands. She was started on IV decardon yesterday. She will likley need LP to aquire CSF in the future to again test for JAGUAR virus since imaging via MRI is suggesting progressive multifocal leukoencephalopathy. Previous testing of JAGUAR virus were negative. This being said her platelet count is very low, transfusing 1 unit today. Pending hematology evaluation. 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 Neck MRA 08/29/17: No significant stenosis seen in the visualized bilateral common or internal carotid arteries. Mild right ICA proximal stenosis is identified with plaque identified at the right carotid bulb. Widely patent bilateral common carotids but otherwise, as imaged. Symmetric vertebrobasilar circulation. Head MRA 08/29/17: Suboptimal diagnostic quality due to motion degraded images, allowing for this, no occlusion. Apparent narrowing in bilateral M1 segments could be related to motion artifacts. Brain MRI 09/09/17: Diminishing bilateral thalamic signal abnormality though bilateral cerebral white matter signal changes are not significantly changed. No acute intracranial findings Patient potentially had a seizure over night. CT (08/22) was negative for any acute findings. Brain MRI was ordered for f/u. patient has not had any more events since then Neurology Consulted, Dr. Denney --> Help appreciated; states that all changes in AMS are most likely due to AIDS Brain MRI w/o contrast(08/22) - Mild diffuse/confluent nonspecific white matter changes as described. Findings are of uncertain etiology though could represent sequela of HIV encephalopathy. PML not excluded. See above discussion for additional differential diagnostic considerations. Questionable secretions/opacification of exuberantly aerated mastoid air cells ramyfing into the left petrous apex however the possibility apical petrositis or small the left petrous CT apex cholesterol granuloma. Repeat Head CT w/o contrast 08/28/17 - Significant motion artifact limits this exam however interval edema is identified at the right greater than left basal ganglia and thalami as well as the bilateral occipital lobes and the right parietal lobe. Is difficult to determine definitively though this is vasogenic or cytotoxic however embolic infarction is questioned. Given the basal ganglia and thalami being affected focally, and anoxic insult is included in the differential diagnosis or even though there is no global loss of vaca-white matter differentiation and edema in this patient. Infectious or metabolic etiologies are not excluded but are not favored. * EEG ordered for morning of 08/23: This is a probably normal EEG. There was increased beta activity noticed intermittently. This could be a normal finding. No focal slowing no seizure like activity was observed. Correlation with clinical findings is needed. 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 Opportunistic Infection ID Dr. Meneses --> help appreciated * Continue Diflucan, bactrim * Started Atripla started 08/27/17 - CT head 08/11 - Negative - MRI 08/12 - unremarkable - LDH - 478 - CD4 - 72 (AIDS confirmed) -->repeat 110 - HIV-1 RNA Qnt (RT-PCR) - 5.80 high - Viral Load: Must r/o infectious causes * CMV - IgG > 10; IgM <30; Dennotes previous infection, no acute infection * Crypto - <1:2 * RPR - nonreactive * Toxoplasma - IgG < 7.2; IgM < 8 - Patient started on empiric antibiotic therapy on Wednesday 09/05 with Aztreonam and Vancomyocin due to rising leukocytosis. Leukocytosis improving 20.6 --> 15.8. Aztreoname and vancomycin discontinued on 09/15/17. AIDS 09/09: Continue on Atripla 08/31: On Atripla at this time. This is being crushed and given via NGT * Dr. Meneses recs * Bactrim DS 1 tab PO M/W/F * Atripla [id number](Efavirenz/Emtricitabine/Teno) 1 tab PO daily - script written and placed in chart for pt's to pharmacy picking tech and fill, so when patient is discharged to [facility], he will be able to take her medication with her, as [facility] does not usually provide HARRT medications. Dr. Sahu discussed with pt's , Emiliano Hoang, on the phone. He stated he understands and will pharmacy picking tech prescription to fill it by 08/28. * Neupogen given 08/25 * HIV screen Positive, CD4 = 72, repeat CD4 = 110 * hep panel negative * Will f/u recs for HARRT therapy upon discharge. * Patient will need to follow up with HIV clinic for continuation of HARRT therapy as out patient. * [facility] - Clinic at [address], [place] * [facility] - Clinic at [address], [place] Phone Anemia; most likely 2/2 to advanced AIDS 09/08: Hg 9.8; platelets increased to 154 09/06: Platelet count gracia to 130 08/31: Patient's platelet count continues to decrease, conset recived for one unit of platelets to be given * Improved to Hgb of 12.7 from 7.1 - patient given 2 units pRBCs on 08/26/17 ( consent given by , Emiliano Hoang, on phone) * continue to monitor Diabetes hypoglycemia protocol RISS only for now Endo consulted, Dr. Nesha Donaldson; appreciate recs * Levemir 8units SC Q12 * ISS low HgA1C - 7.1 accuchecks q6h Continue to monitor Hyponatremia; resolved * STOPPED medications due to potential s/e of hyponatremia * Zoloft, Trazodone and IV fluids. * Nephro Consult, Dr. Wong - help appreciated, f/u recs * urine sodium 113 --> 43 * urine osmol 502 --> 176 * serum osmol 276 * will continue to monitor Dysphagia; resolved Chest CT * particulate matter, possibly food, identified within the esophageal lumen intermixed with gas. * Incidental 6mm nodule within superior right breast. CXR * no acute cardiopulmonary disease Neck soft tissue CT * Abnormal circumferential thickening noted of the cervical esophagus. findings could be due to reflux esophagitis but esophageal carcinoma is not excluded. GI consulted, Dr. 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 Prophylactic Care * Heparin 5000u sc q8h - DC'ed due to anemia * SCDs for DVT ppx * Pepcid 20 ivp daily * Fall precautions DISPO: Once patient is stable, she has been approved for placement at [facility] per case management. We are waiting on patient's daughter to complete and return paperwork. <Wilner Meza - Last Filed: 09/18/17 14:29> Objective - Vital Signs/Intake and Output Vital Signs (last 24 hours): Temp Pulse Resp BP Pulse Ox 97.4 F L 117 H 20 135/88 100 09/18/17 09:21 09/18/17 13:16 09/18/17 09:21 09/18/17 09:21 09/18/17 09:21 Intake and Output: 09/18/17 09/18/17 06:59 18:59 Output Total 2049 Balance -2049 - Medications Medications: Current Medications Acetaminophen (Tylenol 325mg Tab) 650 mg PO Q8 PRN PRN Reason: Pain, moderate (4-7) Alprazolam (Xanax) 0.25 mg PO BID PRN PRN Reason: Anxiety Stop: 09/25/17 11:01 Last Admin: 09/18/17 12:38 Dose: 0.25 mg Amlodipine Besylate (Norvasc) 5 mg NG DAILY [facility] Last Admin: 09/18/17 10:18 Dose: 5 mg Aspirin (Ecotrin) 81 mg PO DAILY [facility] Last Admin: 09/18/17 10:19 Dose: 81 mg Dexamethasone (Decadron) 2 mg PO Q12 [facility] Last Admin: 09/18/17 10:19 Dose: 2 mg Dextrose (Dextrose 50% Inj) 0 ml IV STAT PRN; Protocol PRN Reason: Hyglycemia Protocol Last Admin: 09/07/17 17:10 Dose: 50 ml Dextrose (Glutose 15) 0 gm PO ONCE PRN; Protocol PRN Reason: Hypoglycemia Protocol Efavirenz/Emtricitabine/Tenofovir (Atripla 600 Mg-200 Mg-300 Mg) 1 tab PO DAILY [facility] Last Admin: 09/18/17 10:18 Dose: 1 tab Glucagon (Glucagen Diagnostic Kit) 0 mg IM STAT PRN; Protocol PRN Reason: Hypoglycemia Protocol Insulin Aspart (Novolog) 0 unit SC ACHS [facility] PRN Reason: Protocol Last Admin: 09/18/17 12:31 Dose: Not Given Insulin Aspart (Novolog) 4 unit SC AC [facility] Insulin Detemir (Levemir) 16 unit SC HS [facility] Last Admin: 09/17/17 22:25 Dose: 16 unit Levothyroxine Sodium (Synthroid) 125 mcg PO DAILY@0630 [facility] Last Admin: 09/18/17 07:02 Dose: 125 mcg Ondansetron HCl (Zofran Inj) 4 mg IVP Q6H PRN PRN Reason: Nausea/Vomiting Last Admin: 08/27/17 14:44 Dose: 4 mg Potassium Phos/Sodium Phos (Neutra-Phos) 1 pkt PO TID [facility] Last Admin: 09/18/17 13:50 Dose: 1 pkt Sucralfate (Carafate Tab) 1 gm PO ACBHS [facility] Last Admin: 09/18/17 08:43 Dose: 1 gm Trimethoprim/Sulfamethoxazole (Bactrim Ds Tab) 1 tab PO MWF [facility] Last Admin: 09/17/17 09:04 Dose: 1 tab Valproate Sodium (Depakene Oral Soln) 250 mg PO HS [facility] Last Admin: 09/17/17 22:24 Dose: 250 mg Valproate Sodium (Depakene Oral Soln) 500 mg PO DAILY [facility] Last Admin: 09/18/17 10:18 Dose: 500 mg - Labs Labs: 09/18/17 06:19 09/18/17 06:19 PT 11.1 SECONDS (9.7-12.2) 09/08/17 06:26 INR 1.0 09/08/17 06:26 APTT 26 SECONDS (21-34) 09/08/17 06:26 Attending/Attestation - Attestation I have personally seen and examined this patient.: Yes I have fully participated in the care of the patient.: Yes I have reviewed all pertinent clinical information, including history, physical exam and plan: Yes Notes (Text): Patient was seen and examined.Lying comfortable,She is anxious with some confusion." I want to go home" Denies pain Spoke to RN.She become tachycardic with agitation. Labs reviewed.Hyponatremic Discussed with the resident.We will talk to nephrology about her sodium. continue her current meds Discussed with her daughter in Law. agree with the resident's documentation of assessment and plan.
[2017-09-18 08:30] LABS: NEUTROPHIL 85 % (50-75); TOTAL CELLS COUNTED 100
--- NOTE | 2017-09-18 08:37 | CP.PCM.PN ---
Subjective - Date & Time of Evaluation Date of Evaluation: 09/18/17 Time of Evaluation: 08:36 - Subjective Subjective: Ms. Morel was seen and examined at the bedside. She is able to answer few questions appropriately. She denies any headache, blurred vision, dizziness, lightheadedness Objective - Vital Signs/Intake and Output Vital Signs (last 24 hours): Temp Pulse Resp BP Pulse Ox 97.9 F 87 20 153/88 H 96 09/18/17 03:00 09/18/17 03:27 09/18/17 03:00 09/18/17 03:00 09/18/17 03:00 Intake and Output: 09/18/17 09/18/17 06:59 18:59 Output Total 2049 Balance -2049 - Medications Medications: Current Medications Amlodipine Besylate (Norvasc) 5 mg NG DAILY [facility] Last Admin: 09/17/17 09:06 Dose: 5 mg Aspirin (Ecotrin) 81 mg PO DAILY [facility] Last Admin: 09/17/17 09:04 Dose: 81 mg Dexamethasone (Decadron) 2 mg PO Q12 [facility] Dextrose (Dextrose 50% Inj) 0 ml IV STAT PRN; Protocol PRN Reason: Hyglycemia Protocol Last Admin: 09/07/17 17:10 Dose: 50 ml Dextrose (Glutose 15) 0 gm PO ONCE PRN; Protocol PRN Reason: Hypoglycemia Protocol Last Admin: 09/12/17 11:25 Dose: 15 gm Efavirenz/Emtricitabine/Tenofovir (Atripla 600 Mg-200 Mg-300 Mg) 1 tab PO DAILY [facility] Last Admin: 09/17/17 09:06 Dose: 1 tab Glucagon (Glucagen Diagnostic Kit) 0 mg IM STAT PRN; Protocol PRN Reason: Hypoglycemia Protocol Insulin Aspart (Novolog) 0 unit SC ACHS [facility] PRN Reason: Protocol Last Admin: 09/17/17 22:26 Dose: 3 unit Insulin Aspart (Novolog) 6 unit SC AC [facility] Last Admin: 09/17/17 17:40 Dose: Not Given Insulin Detemir (Levemir) 16 unit SC HS [facility] Last Admin: 09/17/17 22:25 Dose: 16 unit Levothyroxine Sodium (Synthroid) 125 mcg PO DAILY@0630 [facility] Last Admin: 09/18/17 07:02 Dose: 125 mcg Ondansetron HCl (Zofran Inj) 4 mg IVP Q6H PRN PRN Reason: Nausea/Vomiting Last Admin: 08/27/17 14:44 Dose: 4 mg Potassium Phos/Sodium Phos (Neutra-Phos) 1 pkt PO TID [facility] Last Admin: 09/17/17 17:37 Dose: 1 pkt Sucralfate (Carafate Tab) 1 gm PO ACBHS [facility] Trimethoprim/Sulfamethoxazole (Bactrim Ds Tab) 1 tab PO MWF [facility] Last Admin: 09/17/17 09:04 Dose: 1 tab Valproate Sodium (Depakene Oral Soln) 250 mg PO HS [facility] Last Admin: 09/17/17 22:24 Dose: 250 mg Valproate Sodium (Depakene Oral Soln) 500 mg PO DAILY [facility] Last Admin: 09/17/17 09:07 Dose: 500 mg - Labs Labs: 09/18/17 06:19 09/18/17 06:19 PT 11.1 SECONDS (9.7-12.2) 09/08/17 06:26 INR 1.0 09/08/17 06:26 APTT 26 SECONDS (21-34) 09/08/17 06:26 Assessment and Plan (1) Encephalopathy acute Status: Acute
[2017-09-18] MEDS: (Novolog) Insulin Aspart, Recombinant 100 u/ml 10 ml vial SC SCH ×7 (08:39→22:11)
--- NOTE | 2017-09-18 08:41 | CP.PCM.PN ---
Subjective - Date & Time of Evaluation Date of Evaluation: 09/18/17 Time of Evaluation: 08:38 - Subjective Subjective: Ms. Morel was seen and examined at the bedside. She is responsive to both verbal and tactile stimuli. She denies any headache, blurred vision, dizziness, nausea, or vomiting. She remains restless in bed, on telesitter for patient safety. She is unable to verbalize person, place, and time. She verbalize feeling of helplessness. Psychiatry on board.There was no untoward events overnight. Objective - Vital Signs/Intake and Output Vital Signs (last 24 hours): Temp Pulse Resp BP Pulse Ox 97.9 F 87 20 153/88 H 96 09/18/17 03:00 09/18/17 03:27 09/18/17 03:00 09/18/17 03:00 09/18/17 03:00 Intake and Output: 09/18/17 09/18/17 06:59 18:59 Output Total 2049 Balance -2049 - Medications Medications: Current Medications Amlodipine Besylate (Norvasc) 5 mg NG DAILY [facility] Last Admin: 09/17/17 09:06 Dose: 5 mg Aspirin (Ecotrin) 81 mg PO DAILY [facility] Last Admin: 09/17/17 09:04 Dose: 81 mg Dexamethasone (Decadron) 2 mg PO Q12 [facility] Dextrose (Dextrose 50% Inj) 0 ml IV STAT PRN; Protocol PRN Reason: Hyglycemia Protocol Last Admin: 09/07/17 17:10 Dose: 50 ml Dextrose (Glutose 15) 0 gm PO ONCE PRN; Protocol PRN Reason: Hypoglycemia Protocol Last Admin: 09/12/17 11:25 Dose: 15 gm Efavirenz/Emtricitabine/Tenofovir (Atripla 600 Mg-200 Mg-300 Mg) 1 tab PO DAILY [facility] Last Admin: 09/17/17 09:06 Dose: 1 tab Glucagon (Glucagen Diagnostic Kit) 0 mg IM STAT PRN; Protocol PRN Reason: Hypoglycemia Protocol Insulin Aspart (Novolog) 0 unit SC ACHS [facility] PRN Reason: Protocol Last Admin: 09/17/17 22:26 Dose: 3 unit Insulin Aspart (Novolog) 6 unit SC AC [facility] Last Admin: 09/17/17 17:40 Dose: Not Given Insulin Detemir (Levemir) 16 unit SC HS [facility] Last Admin: 09/17/17 22:25 Dose: 16 unit Levothyroxine Sodium (Synthroid) 125 mcg PO DAILY@0630 [facility] Last Admin: 09/18/17 07:02 Dose: 125 mcg Ondansetron HCl (Zofran Inj) 4 mg IVP Q6H PRN PRN Reason: Nausea/Vomiting Last Admin: 08/27/17 14:44 Dose: 4 mg Potassium Phos/Sodium Phos (Neutra-Phos) 1 pkt PO TID [facility] Last Admin: 09/17/17 17:37 Dose: 1 pkt Sucralfate (Carafate Tab) 1 gm PO ACBHS [facility] Trimethoprim/Sulfamethoxazole (Bactrim Ds Tab) 1 tab PO MWF [facility] Last Admin: 09/17/17 09:04 Dose: 1 tab Valproate Sodium (Depakene Oral Soln) 250 mg PO HS [facility] Last Admin: 09/17/17 22:24 Dose: 250 mg Valproate Sodium (Depakene Oral Soln) 500 mg PO DAILY [facility] Last Admin: 09/17/17 09:07 Dose: 500 mg - Labs Labs: 09/18/17 06:19 09/18/17 06:19 PT 11.1 SECONDS (9.7-12.2) 09/08/17 06:26 INR 1.0 09/08/17 06:26 APTT 26 SECONDS (21-34) 09/08/17 06:26 - Constitutional Appears: No Acute Distress, Cachectic - Head Exam Head Exam: ATRAUMATIC, NORMAL INSPECTION, NORMOCEPHALIC - Eye Exam Eye Exam: PERRL - Neurological Exam Neurological Exam: Alert, Awake Neuro motor strength exam: Left Upper Extremity: 5, Right Upper Extremity: 5, Left Lower Extremity: 5, Right Lower Extremity: 5 Additional comments: She is unable to follow commands, but able to respond to few questions appropriately.Sensation remains intact. - Psychiatric Exam Psychiatric exam: Agitated Assessment and Plan (1) Encephalopathy acute Assessment & Plan: Case discussed with Dr. Denney, continue all current medical, physical, and occupational therapies. There is no new recommendation from neurology. Status: Acute
[2017-09-18] MEDS: Efavirenz/Emtricitabine/Teno 1 TAB PO SCH (10:18)
[2017-09-18] MEDS: Potassium & Sodium Phosphate PO SCH ×3 (10:18→18:47)
[2017-09-18] MEDS: Valproic Acid 250 mg/5 ml UD Cup PO SCH ×2 (10:18→22:13)
--- NOTE | 2017-09-18 13:59 | PN ---
ENDOCRINOLOGY FOLLOWUP NOTE DATE: LOCATION: In room 654. SUBJECTIVE: This is a 57-year-old female with recent uncontrolled type 1 insulin dependent diabetes, who continues to have day today glycemic fluctuation from either hypoglycemia to extreme hyperglycemic acceleration as noted there of. Her oral intake remains quite variable as noted. Her glucose values today noted. IMPRESSION AND PLAN: So, for now, we will actually modify her basal and bolus insulin regimen and lower the Novolog to 4 units subcutaneous t.i.d. before meals to start today as ordered. We will continue the basal insulin given as 16 units subcutaneous at bedtime daily is given. We will titrate to optimize metabolic control. We will follow. Nesha Donaldson MD
--- NOTE | 2017-09-18 15:55 | CP.PCM.PN ---
Subjective - Date & Time of Evaluation Date of Evaluation: 09/18/17 Time of Evaluation: 15:45 - Subjective Subjective: 57 yo F w/ pmh of htn, dm, hypothyroidism, admitted initially with dysphagia, diagnosed with AIDS, prolonged hospital course due to AMS; nephrology being called back for recurrent hyponatremia; Per nursing staff, patient more restless today; has been tolerating diet when fed; no mention of any vomiting or diarrhea; unable to get history from patient due to AMS; Objective - Vital Signs/Intake and Output Vital Signs (last 24 hours): Temp Pulse Resp BP Pulse Ox 97.4 F L 117 H 20 135/88 100 09/18/17 09:21 09/18/17 13:16 09/18/17 09:21 09/18/17 09:21 09/18/17 09:21 Intake and Output: 09/18/17 09/18/17 06:59 18:59 Intake Total 240 Output Total 2049 850 Balance -0 -610 - Medications Medications: Current Medications Acetaminophen (Tylenol 325mg Tab) 650 mg PO Q8 PRN PRN Reason: Pain, moderate (4-7) Alprazolam (Xanax) 0.25 mg PO BID PRN PRN Reason: Anxiety Stop: 09/25/17 11:01 Last Admin: 09/18/17 12:38 Dose: 0.25 mg Amlodipine Besylate (Norvasc) 5 mg NG DAILY [facility] Last Admin: 09/18/17 10:18 Dose: 5 mg Aspirin (Ecotrin) 81 mg PO DAILY [facility] Last Admin: 09/18/17 10:19 Dose: 81 mg Dexamethasone (Decadron) 2 mg PO Q12 [facility] Last Admin: 09/18/17 10:19 Dose: 2 mg Dextrose (Dextrose 50% Inj) 0 ml IV STAT PRN; Protocol PRN Reason: Hyglycemia Protocol Last Admin: 09/07/17 17:10 Dose: 50 ml Dextrose (Glutose 15) 0 gm PO ONCE PRN; Protocol PRN Reason: Hypoglycemia Protocol Efavirenz/Emtricitabine/Tenofovir (Atripla 600 Mg-200 Mg-300 Mg) 1 tab PO DAILY [facility] Last Admin: 09/18/17 10:18 Dose: 1 tab Glucagon (Glucagen Diagnostic Kit) 0 mg IM STAT PRN; Protocol PRN Reason: Hypoglycemia Protocol Insulin Aspart (Novolog) 0 unit SC ACHS [facility] PRN Reason: Protocol Last Admin: 09/18/17 12:31 Dose: Not Given Insulin Aspart (Novolog) 4 unit SC [facility] Insulin Detemir (Levemir) 16 unit SC [facility] Last Admin: 09/17/17 22:25 Dose: 16 unit Levothyroxine Sodium (Synthroid) 125 mcg PO DAILY@0630 [facility] Last Admin: 09/18/17 07:02 Dose: 125 mcg Ondansetron HCl (Zofran Inj) 4 mg IVP Q6H PRN PRN Reason: Nausea/Vomiting Last Admin: 08/27/17 14:44 Dose: 4 mg Potassium Phos/Sodium Phos (Neutra-Phos) 1 pkt PO TID [facility] Last Admin: 09/18/17 13:50 Dose: 1 pkt Sucralfate (Carafate Tab) 1 gm PO [facility] Last Admin: 09/18/17 08:43 Dose: 1 gm Trimethoprim/Sulfamethoxazole (Bactrim Ds Tab) 1 tab PO [facility] Last Admin: 09/17/17 09:04 Dose: 1 tab Valproate Sodium (Depakene Oral Soln) 250 mg PO [facility] Last Admin: 09/17/17 22:24 Dose: 250 mg Valproate Sodium (Depakene Oral Soln) 500 mg PO DAILY [facility] Last Admin: 09/18/17 10:18 Dose: 500 mg - Labs Labs: 09/18/17 06:19 09/18/17 06:19 PT 11.1 SECONDS (9.7-12.2) 09/08/17 06:26 INR 1.0 09/08/17 06:26 APTT 26 SECONDS (21-34) 09/08/17 06:26 - Constitutional Appears: Non-toxic, No Acute Distress, Confused - Eye Exam Eye Exam: absent: Scleral icterus Additional comments: somewhat sunken eyes; - Respiratory Exam Respiratory Exam: Clear to Ausculation Bilateral. absent: Rhonchi, Wheezes, Respiratory Distress - Cardiovascular Exam Cardiovascular Exam: Tachycardia, REGULAR RHYTHM, +S1, +S2 - GI/Abdominal Exam GI & Abdominal Exam: Soft. absent: Distended, Tenderness - Exam Additional comments: pink in place; - Extremities Exam Additional comments: no leg edema; - Neurological Exam Neurological Exam: Alert, Awake - Psychiatric Exam Psychiatric exam: Agitated - Skin Skin Exam: Warm. absent: Cyanosis Assessment and Plan (1) Hyponatremia Assessment & Plan: Initially was due to therapeutic dose of bactrim, resolved after bactrim discontinued, subsequently switched to prophylactic dose; patient's I/O indicate that she has daily net negative fluid balance with borderline to low level of polyuria; also tachycardic; therefore, hypovolemia is most likely despite being normotensive; -will check urine Na and osm -start NS at 75 cc/hr Status: Acute (2) HTN (hypertension) Assessment & Plan: BP elevated intermittently; on amlodipine 5 mg daily, continue same; re-assess after giving IVF; Status: Acute (3) Anemia Assessment & Plan: Likely due to chronic disease; should repeat iron studies; Status: Acute (4) Hyperkalemia Status: Resolved (5) History of acute renal failure Status: Resolved (6) Creatinine elevation Status: Resolved
[2017-09-18] MEDS ORDERED: Simethicone 80 mg Chewtab PO ONE ×2 (17:19→18:45)
[2017-09-18] MEDS: Sodium Chloride 0.9% 1,000 ML IV SCH (17:22)
[2017-09-18 18:07] LABS: RBC URINE 8 /hpf (0-3); URINE BACTERIA RARE (<OCC); URINE BILIRUBIN NEGATIVE (NEGATIVE); URINE BLOOD 2+ (NEGATIVE); URINE COLOR Straw (YELLOW); URINE GLUCOSE (UA) 3+ mg/dL (Normal); URINE KETONE NEGATIVE (NEGATIVE); URINE PROTEIN 1+ mg/dL (NEGATIVE); URINE UROBILINOGEN NORMAL mg/dL (0.2-1.0); WBC URINE 8 /hpf (0-5)
[2017-09-18 18:08] LABS: URINE LEUKOCYTE ESTERASE 1+ Leu/uL (Negative)
[2017-09-18] MEDS: Insulin Detemir 100 units/ml Vial (Levemir) SC SCH (22:13)
[2017-09-19] MEDS: Sodium Chloride 0.9% 1,000 ML IV SCH ×2 (02:33→23:01)
[2017-09-19] MEDS: Dextrose 50% SYRINGE Inj (50 ml) IV PRN (06:25)
[2017-09-19] MEDS: Levothyroxine 125 MCG TAB PO SCH (06:33)
--- NOTE | 2017-09-19 07:22 | CP.PCM.PN ---
<Fransisco Doshi - Last Filed: 09/19/17 11:15> Subjective - Date & Time of Evaluation Date of Evaluation: 09/19/17 Time of Evaluation: 07:22 - Subjective Subjective: PGY-[address] Meza. Patient was seen and examined this AM at bedside. Overnight the patient's blood glucose dropped to 25. She was given dextrose 50% 50 ml IVP and blood glucose after 15 minutes was 258. She had gas pain last night which she said is better today. She was not confused today. She was AAOx3, and excited about her son's upcoming birthday. She had a PT session this morning with the physical therapist. She had no other complaints. Objective - Vital Signs/Intake and Output Vital Signs (last 24 hours): Temp Pulse Resp BP Pulse Ox 98.5 F 88 20 138/80 96 09/18/17 16:00 09/19/17 00:00 09/18/17 16:00 09/18/17 16:00 09/18/17 16:00 Intake and Output: 09/19/17 09/19/17 06:59 18:59 Intake Total 2330 Output Total 2050 Balance 280 - Medications Medications: Current Medications Acetaminophen (Tylenol 325mg Tab) 650 mg PO Q8 PRN PRN Reason: Pain, moderate (4-7) Last Admin: 09/19/17 02:22 Dose: 650 mg Alprazolam (Xanax) 0.25 mg PO BID PRN PRN Reason: Anxiety Stop: 09/25/17 11:01 Last Admin: 09/19/17 02:32 Dose: 0.25 mg Amlodipine Besylate (Norvasc) 5 mg NG DAILY [facility] Last Admin: 09/18/17 10:18 Dose: 5 mg Aspirin (Ecotrin) 81 mg PO DAILY [facility] Last Admin: 09/18/17 10:19 Dose: 81 mg Dexamethasone (Decadron) 2 mg PO Q12 [facility] Last Admin: 09/18/17 22:10 Dose: 2 mg Dextrose (Dextrose 50% Inj) 0 ml IV STAT PRN; Protocol PRN Reason: Hyglycemia Protocol Last Admin: 09/19/17 06:25 Dose: 50 ml Dextrose (Glutose 15) 0 gm PO ONCE PRN; Protocol PRN Reason: Hypoglycemia Protocol Efavirenz/Emtricitabine/Tenofovir (Atripla 600 Mg-200 Mg-300 Mg) 1 tab PO DAILY [facility] Last Admin: 09/18/17 10:18 Dose: 1 tab Glucagon (Glucagen Diagnostic Kit) 0 mg IM STAT PRN; Protocol PRN Reason: Hypoglycemia Protocol Sodium Chloride (Sodium Chloride 0.9%) 1,000 mls @ 100 mls/hr IV .Q10H [facility] Last Admin: 09/19/17 02:33 Dose: 100 mls/hr Insulin Aspart (Novolog) 0 unit SC [facility] PRN Reason: Protocol Last Admin: 09/18/17 22:11 Dose: 2 unit Insulin Aspart (Novolog) 4 unit SC [facility] Last Admin: 09/18/17 17:21 Dose: 4 unit Insulin Detemir (Levemir) 16 unit SC [facility] Last Admin: 09/18/17 22:13 Dose: 16 unit Levothyroxine Sodium (Synthroid) 125 mcg PO DAILY@0630 [facility] Last Admin: 09/19/17 06:33 Dose: 125 mcg Ondansetron HCl (Zofran Inj) 4 mg IVP Q6H PRN PRN Reason: Nausea/Vomiting Last Admin: 08/27/17 14:44 Dose: 4 mg Potassium Phos/Sodium Phos (Neutra-Phos) 1 pkt PO TID [facility] Last Admin: 09/18/17 18:47 Dose: 1 pkt Sucralfate (Carafate Tab) 1 gm PO ACS [facility] Last Admin: 09/19/17 06:33 Dose: 1 gm Trimethoprim/Sulfamethoxazole (Bactrim Ds Tab) 1 tab PO F [facility] Last Admin: 09/17/17 09:04 Dose: 1 tab Valproate Sodium (Depakene Oral Soln) 250 mg PO [facility] Last Admin: 09/18/17 22:13 Dose: 250 mg Valproate Sodium (Depakene Oral Soln) 500 mg PO DAILY [facility] Last Admin: 09/18/17 10:18 Dose: 500 mg - Labs Labs: 09/18/17 06:19 09/18/17 06:19 PT 11.1 SECONDS (9.7-12.2) 09/08/17 06:26 INR 1.0 09/08/17 06:26 APTT 26 SECONDS (21-34) 09/08/17 06:26 - Additional Findings Additional findings: - Constitutional Appears: No Acute Distress - Head Exam Head Exam: ATRAUMATIC, NORMAL INSPECTION - Eye Exam Eye Exam: EOMI - ENT Exam ENT Exam: Mucous Membranes Moist - Respiratory Exam Respiratory Exam: Clear to Ausculation Bilateral, NORMAL BREATHING PATTERN. absent: Accessory Muscle Use, Rales, Rhonchi, Wheezes - Cardiovascular Exam Cardiovascular Exam: REGULAR RHYTHM, RRR, +S1, +S2. absent: Bradycardia, Tachycardia - GI/Abdominal Exam GI & Abdominal Exam: Soft, Normal Bowel Sounds. absent: Tenderness - Extremities Exam Extremities Exam: Normal Capillary Refill, Normal Inspection, Tenderness Additional comments: muscle wasting noted in lower extremities below knees bilaterally - Neurological Exam Neurological Exam: Alert, Awake, Oriented x1 (not oriented to place or time), Able to follow commands, She is responsive to both verbal and tactile stimuli. 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 Leukocytosis improving 20.6 --> 15.8. Aztreoname and vancomycin discontinued on 09/15/17 Imaging: Brain MRI 09/09/17 - Diminishing bilateral thalamic signal abnormality though bilateral cerebral white matter signal changes are not significantly changed. 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 Neck MRA 08/29/17 - No significant stenosis seen in the visualized bilateral common or internal carotid arteries. Mild right ICA proximal stenosis is identified with plaque identified at the right carotid bulb. Widely patent bilateral common carotids but otherwise, as imaged. Symmetric vertebrobasilar circulation. Head MRA 08/29/17 - Suboptimal diagnostic quality due to motion degraded images , allowing for this, no occlusion. Apparent narrowing in bilateral M1 segments could be related to motion artifacts. Brain MRI w/o contrast 08/22/17 - Mild diffuse/confluent nonspecific white matter changes as described. Findings are of uncertain etiology though could represent sequela of HIV encephalopathy. PML not excluded. Head CT w/o contrast 08/28/17 - Significant motion artifact limits this exam however interval edema is identified at the right greater than left basal ganglia and thalami as well as the bilateral occipital lobes and the right parietal lobe. Is difficult to determine definitively though this is vasogenic or cytotoxic however embolic infarction is questioned. Given the basal ganglia and thalami being affected focally, and anoxic insult is included in the differential diagnosis or even though there is no global loss of vaca-white matter differentiation and edema in this patient. Infectious or metabolic etiologies are not excluded but are not favored. EEG 08/23 - This is a probably normal EEG. There was increased beta activity noticed intermittently. This could be a normal finding. No focal slowing no seizure like activity was observed. Correlation with clinical findings is needed. LDH - 478 CD4 - 72 (AIDS confirmed) -->repeat 110 HIV-1 RNA Qnt (RT-PCR) - 5.80 high r/o infectious causes: CMV - IgG > 10; IgM <30; Dennotes previous infection, no acute infection Crypto - <1:2 RPR - nonreactive Toxoplasma - IgG < 7.2; IgM < 8 JAGUAR virus <500 = negative Neurology to hold off on LP, risks outweight the benefits Anemia; most likely 2/2 to advanced AIDS H/H currently stable, monitor for drop and be ready to transfuse patient given 2 units pRBCs on 08/26/17 (consent given by , Emiliano Hoang, on phone) Diabetes Endo consulted, Dr. Nesha Donaldson hypoglycemia protocol RISS only for now Novolog 4 units AC Levemir 16 units HS ISS low dose protocol HgA1C - 7.1 accuchecks q6h Hyponatremia hypovolemia is most likely despite being normotensive Nephro Consult, Dr. Wong will check urine Na and osm start NS at 75 cc/hr STOPPED Zoloft, Trazodone medications due to potential s/e of hyponatremia Dysphagia; resolved Chest CT * particulate matter, possibly food, identified within the esophageal lumen intermixed with gas. * Incidental 6mm nodule within superior right breast. CXR * no acute cardiopulmonary disease Neck soft tissue CT * Abnormal circumferential thickening noted of the cervical esophagus. findings could be due to reflux esophagitis but esophageal carcinoma is not excluded. GI consulted, Dr. 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 Prophylactic Care * Heparin 5000u sc q8h - DC'ed due to anemia * SCDs for DVT ppx * Pepcid 20 ivp daily * Fall precautions * Tolerating dysphagia diet DISPO: Once patient is stable, she has been approved for placement at [facility] per case management. We are waiting on patient's daughter to complete and return paperwork. <Wilner Meza - Last Filed: 09/28/17 07:37> Objective - Vital Signs/Intake and Output Vital Signs (last 24 hours): Temp Pulse Resp BP Pulse Ox 98 F 102 H 20 153/84 H 100 09/19/17 16:00 09/19/17 16:00 09/19/17 16:00 09/19/17 16:00 09/19/17 16:00 - Labs Labs: 09/19/17 07:15 09/19/17 07:15 PT 11.1 SECONDS (9.7-12.2) 09/08/17 06:26 INR 1.0 09/08/17 06:26 APTT 26 SECONDS (21-34) 09/08/17 06:26 Attending/Attestation - Attestation I have personally seen and examined this patient.: Yes I have fully participated in the care of the patient.: Yes I have reviewed all pertinent clinical information, including history, physical exam and plan: Yes Notes (Text): Patient was seen and examined, Discussed with the resident. I agree with the resident's documentation of the assessment and the plan
[2017-09-19 07:50] LABS: BASO # 0.1 K/uL (0.0-0.2); BASO % 1.2 % (0.0-2.0); EOS # 0.1 K/uL (0.0-0.7); EOS % 1.9 % (0.0-4.0); LYMPH # 0.7 K/uL (1.0-4.3); LYMPH % 11.2 % (20.0-40.0); MEAN CELL VOLUME 87.6 fL (81.0-99.0); MEAN CORPUSCULAR HEMOGLOBIN 30.4 pg (27.0-31.0); MEAN CORPUSCULAR HGB CONC 34.7 g/dL (33.0-37.0); MEAN PLATELET VOLUME 9.3 fL (7.2-11.7); MONO # 0.4 K/uL (0.0-0.8); MONO % 6.7 % (0.0-10.0); RED CELL DISTRIBUTION WIDTH 14.8 % (11.5-14.5); WHITE BLOOD COUNT 6.5 K/uL (4.8-10.8)
[2017-09-19 07:59] LABS: CHLORIDE 100 mmol/L (98-107)
[2017-09-19 08:00] LABS: SODIUM 130 mmol/L (132-148)
[2017-09-19 08:02] LABS: ALB/GLOB RATIO 1.3 (1.0-2.1); ALKALINE PHOSPHATASE 112 U/L (38-126); ALT/SGPT 40 U/L (9-52); AST/SGOT 19 U/L (14-36); BILIRUBIN,TOTAL 0.5 mg/dL (0.2-1.3); BLOOD UREA NITROGEN 20 mg/dL (7-17); CARBON DIOXIDE 20 mmol/L (22-30); GFR AFRICAN-AMERICAN > 60; GLUCOSE,RANDOM 202 mg/dL (65-105); TOTAL PROTEIN 5.5 g/dL (6.3-8.3)
--- NOTE | 2017-09-19 08:12 | CP.PCM.PN ---
Subjective - Date & Time of Evaluation Date of Evaluation: 09/19/17 Time of Evaluation: 08:10 - Subjective Subjective: Ms. Morel was seen and examined at the bedside. She is alert and calm today. She denies any pain, headache, dizziness, nausea, or vomiting. She claims of feeling sleepy. She has an episode of hypoglycemia, dextrose 50% was given. Her latest blood sugar is 258mg/dl. She remains with 1:1 sitter for patient safety. Encourage patient to increase PO intake. Objective - Vital Signs/Intake and Output Vital Signs (last 24 hours): Temp Pulse Resp BP Pulse Ox 98.5 F 82 20 138/80 96 09/18/17 16:00 09/19/17 07:30 09/18/17 16:00 09/18/17 16:00 09/18/17 16:00 Intake and Output: 09/19/17 09/19/17 06:59 18:59 Intake Total 2330 Output Total 2050 Balance 280 - Medications Medications: Current Medications Acetaminophen (Tylenol 325mg Tab) 650 mg PO Q8 PRN PRN Reason: Pain, moderate (4-7) Last Admin: 09/19/17 02:22 Dose: 650 mg Alprazolam (Xanax) 0.25 mg PO BID PRN PRN Reason: Anxiety Stop: 09/25/17 11:01 Last Admin: 09/19/17 02:32 Dose: 0.25 mg Amlodipine Besylate (Norvasc) 5 mg NG DAILY [facility] Last Admin: 09/18/17 10:18 Dose: 5 mg Aspirin (Ecotrin) 81 mg PO DAILY [facility] Last Admin: 09/18/17 10:19 Dose: 81 mg Dexamethasone (Decadron) 2 mg PO Q12 [facility] Last Admin: 09/18/17 22:10 Dose: 2 mg Dextrose (Dextrose 50% Inj) 0 ml IV STAT PRN; Protocol PRN Reason: Hyglycemia Protocol Last Admin: 09/19/17 06:25 Dose: 50 ml Dextrose (Glutose 15) 0 gm PO ONCE PRN; Protocol PRN Reason: Hypoglycemia Protocol Efavirenz/Emtricitabine/Tenofovir (Atripla 600 Mg-200 Mg-300 Mg) 1 tab PO DAILY [facility] Last Admin: 09/18/17 10:18 Dose: 1 tab Glucagon (Glucagen Diagnostic Kit) 0 mg IM STAT PRN; Protocol PRN Reason: Hypoglycemia Protocol Sodium Chloride (Sodium Chloride 0.9%) 1,000 mls @ 100 mls/hr IV .Q10H [facility] Last Admin: 09/19/17 02:33 Dose: 100 mls/hr Insulin Aspart (Novolog) 0 unit SC [facility] PRN Reason: Protocol Last Admin: 09/18/17 22:11 Dose: 2 unit Insulin Aspart (Novolog) 4 unit SC [facility] Last Admin: 09/18/17 17:21 Dose: 4 unit Insulin Detemir (Levemir) 16 unit SC [facility] Last Admin: 09/18/17 22:13 Dose: 16 unit Levothyroxine Sodium (Synthroid) 125 mcg PO DAILY@0630 [facility] Last Admin: 09/19/17 06:33 Dose: 125 mcg Ondansetron HCl (Zofran Inj) 4 mg IVP Q6H PRN PRN Reason: Nausea/Vomiting Last Admin: 08/27/17 14:44 Dose: 4 mg Potassium Phos/Sodium Phos (Neutra-Phos) 1 pkt PO TID [facility] Last Admin: 09/18/17 18:47 Dose: 1 pkt Sucralfate (Carafate Tab) 1 gm PO [facility] Last Admin: 09/19/17 06:33 Dose: 1 gm Trimethoprim/Sulfamethoxazole (Bactrim Ds Tab) 1 tab PO [facility] Last Admin: 09/17/17 09:04 Dose: 1 tab Valproate Sodium (Depakene Oral Soln) 250 mg PO [facility] Last Admin: 09/18/17 22:13 Dose: 250 mg Valproate Sodium (Depakene Oral Soln) 500 mg PO DAILY [facility] Last Admin: 09/18/17 10:18 Dose: 500 mg - Labs Labs: 09/19/17 07:15 09/19/17 07:15 PT 11.1 SECONDS (9.7-12.2) 09/08/17 06:26 INR 1.0 09/08/17 06:26 APTT 26 SECONDS (21-34) 09/08/17 06:26 - Constitutional Appears: Cachectic - Head Exam Head Exam: ATRAUMATIC, NORMAL INSPECTION, NORMOCEPHALIC - Neurological Exam Neurological Exam: Alert, Awake Neuro motor strength exam: Left Upper Extremity: 5, Right Upper Extremity: 5, Left Lower Extremity: 5, Right Lower Extremity: 5 Additional comments: neurological improved from yesterday, clam and not restless. She is able to follow commands. Assessment and Plan (1) Encephalopathy acute Assessment & Plan: Case discussed with Dr. Denney, continue all current medical, physical, and occupational therapies. There is no new recommendation from neurology. Status: Acute
[2017-09-19] MEDS: Tmp-Smz 800 mg-160 mg DS Tab PO SCH (08:36)
[2017-09-19] MEDS: (Novolog) Insulin Aspart, Recombinant 100 u/ml 10 ml vial SC SCH ×7 (08:40→23:00)
[2017-09-19] MEDS ORDERED: Potassium Chloride 20 mEq ER Tab PO SCH (10:00)
[2017-09-19] MEDS: Potassium Chloride 20 mEq/15 ml LIQ UD PO SCH ×2 (10:08→18:30)
[2017-09-19] MEDS: Potassium & Sodium Phosphate PO SCH ×3 (10:09→18:30)
[2017-09-19] MEDS: Valproic Acid 250 mg/5 ml UD Cup PO SCH ×2 (10:10→23:00)
[2017-09-19] MEDS: Efavirenz/Emtricitabine/Teno 1 TAB PO SCH (10:10)
[2017-09-19] MEDS ORDERED: Vitamins A & D Oint UD Foilpak TOP SCH (10:30)
[2017-09-19 18:55] VITALS: BP 153/84; TEMP 98; O2SAT 100
[2017-09-19 19:23] VITALS: PULSE 102
[2017-09-19] MEDS ORDERED: Insulin Detemir 100 units/ml Vial (Levemir) SC SCH (22:00)
--- NOTE | 2017-09-19 22:46 | CP.PCM.PN ---
Objective - Vital Signs/Intake and Output Vital Signs (last 24 hours): Temp Pulse Resp BP Pulse Ox 98 F 102 H 20 153/84 H 100 09/19/17 16:00 09/19/17 16:00 09/19/17 16:00 09/19/17 16:00 09/19/17 16:00 Intake and Output: 09/19/17 09/20/17 18:59 06:59 Intake Total 1610 Output Total 1350 Balance 260 - Medications Medications: Current Medications Acetaminophen (Tylenol 325mg Tab) 650 mg PO Q8 PRN PRN Reason: Pain, moderate (4-7) Last Admin: 09/19/17 02:22 Dose: 650 mg Alprazolam (Xanax) 0.25 mg PO BID PRN PRN Reason: Anxiety Stop: 09/25/17 11:01 Last Admin: 09/19/17 02:32 Dose: 0.25 mg Amlodipine Besylate (Norvasc) 5 mg NG DAILY [facility] Last Admin: 09/19/17 10:10 Dose: 5 mg Aspirin (Ecotrin) 81 mg PO DAILY [facility] Last Admin: 09/19/17 10:10 Dose: 81 mg Dexamethasone (Decadron) 2 mg PO Q12 [facility] Last Admin: 09/19/17 10:10 Dose: 2 mg Dextrose (Dextrose 50% Inj) 0 ml IV STAT PRN; Protocol PRN Reason: Hyglycemia Protocol Last Admin: 09/19/17 06:25 Dose: 50 ml Dextrose (Glutose 15) 0 gm PO ONCE PRN; Protocol PRN Reason: Hypoglycemia Protocol Efavirenz/Emtricitabine/Tenofovir (Atripla 600 Mg-200 Mg-300 Mg) 1 tab PO DAILY [facility] Last Admin: 09/19/17 10:10 Dose: 1 tab Glucagon (Glucagen Diagnostic Kit) 0 mg IM STAT PRN; Protocol PRN Reason: Hypoglycemia Protocol Sodium Chloride (Sodium Chloride 0.9%) 1,000 mls @ 100 mls/hr IV .Q10H [facility] Last Admin: 09/19/17 02:33 Dose: 100 mls/hr Insulin Aspart (Novolog) 0 unit SC ACHS JESSICA PRN Reason: Protocol Last Admin: 09/19/17 17:15 Dose: Not Given Insulin Aspart (Novolog) 4 unit SC AC [facility] Last Admin: 09/19/17 17:00 Dose: Not Given Insulin Detemir (Levemir) 12 unit SC [facility] Levothyroxine Sodium (Synthroid) 125 mcg PO DAILY@0630 [facility] Last Admin: 09/19/17 06:33 Dose: 125 mcg Ondansetron HCl (Zofran Inj) 4 mg IVP Q6H PRN PRN Reason: Nausea/Vomiting Last Admin: 08/27/17 14:44 Dose: 4 mg Potassium Phos/Sodium Phos (Neutra-Phos) 1 pkt PO TID [facility] Last Admin: 09/19/17 18:30 Dose: Not Given Sodium Chloride (Sodium Chloride Tab) 1 gm PO TID [facility] Last Admin: 09/19/17 18:30 Dose: Not Given Sucralfate (Carafate Tab) 1 gm PO ACBHS [facility] Last Admin: 09/19/17 06:33 Dose: 1 gm Trimethoprim/Sulfamethoxazole (Bactrim Ds Tab) [facility] Last Admin: 09/19/17 08:36 Dose: 1 tab Valproate Sodium (Depakene Oral Soln) 250 mg PO [facility] Last Admin: 09/18/17 22:13 Dose: 250 mg Valproate Sodium (Depakene Oral Soln) 500 mg PO DAILY [facility] Last Admin: 09/19/17 10:10 Dose: 500 mg - Labs Labs: 09/19/17 07:15 09/19/17 07:15 PT 11.1 SECONDS (9.7-12.2) 09/08/17 06:26 INR 1.0 09/08/17 06:26 APTT 26 SECONDS (21-34) 09/08/17 06:26 Assessment and Plan (1) Hyponatremia Status: Acute (2) HTN (hypertension) Status: Acute (3) Anemia Status: Acute (4) Hyperkalemia Status: Resolved (5) History of acute renal failure Status: Resolved (6) Creatinine elevation Status: Resolved
--- NOTE | 2017-09-20 10:13 | CP.PCM.DIS ---
<GlendaFransisco R - Last Filed: 09/20/17 10:10> Provider - Provider Date of Admission: 08/08/17 13:46 Attending physician: Wilner Meza MD Primary care physician: PMD: Dr Chuy Fernando Consults: Endocrinology: Dr Nesha Donaldson Hematology/Oncology: Dr Jj Schmitt Infectous Disease: Dr Jemal Meneses Nephrology: Dr Gualberto Wong Neurology: Dr Kevin Denney Psychiatry: Dr Andie Chneg Time Spent in preparation of Discharge (in minutes): 120 Hospital Course - Lab Results Lab Results: Micro Results 09/13/17 05:30 Blood-Thru Central Line Blood Culture - Final NO GROWTH AFTER 5 DAYS 09/13/17 05:30 Blood-Thru Central Line Gram Stain - Final TEST NOT PERFORMED 09/13/17 07:10 Blood-Thru Central Line Blood Culture - Final NO GROWTH AFTER 5 DAYS 09/13/17 07:10 Blood-Thru Central Line Gram Stain - Final TEST NOT PERFORMED 09/05/17 19:30 Blood-Venous Blood Culture - Final NO GROWTH AFTER 5 DAYS 09/05/17 19:30 Blood-Venous Gram Stain - Final TEST NOT PERFORMED 09/05/17 19:30 Blood-Venous S.aureus & Coag-Neg Staph PNA FISH - Final 09/05/17 19:30 Blood-Venous Blood Culture - Final Coagulase Neg Staphylococcus 09/05/17 19:30 Blood-Venous Gram Stain - Final 09/05/17 18:27 Urine,Pink Urine Culture - Final No Growth (<1,000 CFU/ML) 08/17/17 09:40 Blood-Venous Blood Culture - Final NO GROWTH AFTER 5 DAYS 08/17/17 09:40 Blood-Venous Gram Stain - Final TEST NOT PERFORMED 08/17/17 09:20 Blood-Venous Blood Culture - Final NO GROWTH AFTER 5 DAYS 08/17/17 09:20 Blood-Venous Gram Stain - Final TEST NOT PERFORMED 08/17/17 09:40 Urine Urine Culture - Final No Growth (<1,000 CFU/ML) Most Recent Lab Values WBC 6.5 K/uL (4.8-10.8) 09/19/17 07:15 RBC 2.62 Mil/uL (3.80-5.20) L 09/19/17 07:15 Hgb 8.0 g/dL (11.0-16.0) L 09/19/17 07:15 Hct 23.0 % (34.0-47.0) L 09/19/17 07:15 MCV 87.6 fL (81.0-99.0) 09/19/17 07:15 MCH 30.4 pg (27.0-31.0) 09/19/17 07:15 MCHC 34.7 g/dL (33.0-37.0) 09/19/17 07:15 RDW 14.8 % (11.5-14.5) H 09/19/17 07:15 Plt Count 145 K/uL (130-400) 09/19/17 07:15 MPV 9.3 fL (7.2-11.7) 09/19/17 07:15 Neut % (Auto) 79.0 % (50.0-75.0) H 09/19/17 07:15 Lymph % (Auto) 11.2 % (20.0-40.0) L 09/19/17 07:15 Rush % (Auto) 6.7 % (0.0-10.0) 09/19/17 07:15 Eos % (Auto) 1.9 % (0.0-4.0) 09/19/17 07:15 Baso % (Auto) 1.2 % (0.0-2.0) 09/19/17 07:15 Neut # 5.2 K/uL (1.8-7.0) 09/19/17 07:15 Lymph # 0.7 K/uL (1.0-4.3) L 09/19/17 07:15 Rush # 0.4 K/uL (0.0-0.8) 09/19/17 07:15 Eos # 0.1 K/uL (0.0-0.7) 09/19/17 07:15 Baso # 0.1 K/uL (0.0-0.2) 09/19/17 07:15 Neutrophils % (Manual) 85 % (50-75) H 09/18/17 06:19 Band Neutrophils % 1 % (0-2) 09/16/17 07:00 Lymphocytes % (Manual) 9 % (20-40) L 09/18/17 06:19 Monocytes % (Manual) 6 % (0-10) 09/18/17 06:19 Eosinophils % (Manual) 2 % (0-4) 08/26/17 06:23 Basophils % (Manual) 1 % (0-2) 09/15/17 07:16 Metamyelocytes % 1 % (0-0) H 09/09/17 07:27 Myelocytes % 1 % (0-0) H 09/15/17 07:16 Nucleated RBC % 1 % (0-0) H 08/26/17 06:23 Differential Comment 08/25/17 07:05 Toxic Granulation Present 09/14/17 07:12 Platelet Estimate Normal (NORMAL) 09/18/17 06:19 Large Platelets Present 09/14/17 07:12 Polychromasia Slight 09/14/17 07:12 Hypochromasia (manual) Moderate 09/18/17 06:19 Poikilocytosis (manual Slight 09/18/17 06:19 Basophilic Stippling Slight 08/17/17 07:25 Anisocytosis (manual) Slight 09/18/17 06:19 Microcytosis (manual) Slight 09/18/17 06:19 Target Cells Slight 09/15/17 07:16 Tear Drop Cells Slight 09/15/17 07:16 Ovalocytes Slight 09/15/17 07:16 Webster Cells Slight 09/18/17 06:19 Schistocytes Slight 09/14/17 07:12 Smear Path Review 08/31/17 07:15 PT 11.1 SECONDS (9.7-12.2) 09/08/17 06:26 INR 1.0 09/08/17 06:26 APTT 26 SECONDS (21-34) 09/08/17 06:26 Sodium 130 mmol/L (132-148) L 09/19/17 07:15 Potassium 3.0 mmol/L (3.6-5.2) L 09/19/17 07:15 Chloride 100 mmol/L (98-107) 09/19/17 07:15 Carbon Dioxide 20 mmol/L (22-30) L 09/19/17 07:15 Anion Gap 13 (10-20) 09/19/17 07:15 BUN 20 mg/dL (7-17) H 09/19/17 07:15 Creatinine 0.9 mg/dL (0.7-1.2) 09/19/17 07:15 Est GFR ( Amer) > 60 09/19/17 07:15 Est GFR (Non-Af Amer) > 60 09/19/17 07:15 POC Glucose (mg/dL) 218 mg/dL (65-110) H 09/19/17 21:01 Random Glucose 202 mg/dL (65-105) H 09/19/17 07:15 Hemoglobin A1c 7.4 % (4.2-6.5) H 08/19/17 08:25 Serum Osmolality 276 mosm/kg (272-300) 08/20/17 14:22 Calcium 8.0 mg/dl (8.6-10.4) L 09/19/17 07:15 Phosphorus 3.5 mg/dL (2.5-4.5) 09/15/17 07:16 Magnesium 1.9 mg/dL (1.6-2.3) 09/15/17 07:16 Iron 160 ug/dL (37-170) 08/21/17 07:24 TIBC 203 ug/dL (250-450) L 08/21/17 07:24 % Saturation 79 (20-55) H 08/21/17 07:24 Ferritin 2580.0 ng/mL 08/21/17 07:24 Total Bilirubin 0.5 mg/dL (0.2-1.3) 09/19/17 07:15 AST 19 U/L (14-36) 09/19/17 07:15 ALT 40 U/L (9-52) 09/19/17 07:15 Alkaline Phosphatase 112 U/L (38-126) 09/19/17 07:15 Ammonia 14 umol/L (9-33) 08/29/17 14:01 Lactate Dehydrogenase 478 U/L (313-618) 08/12/17 17:01 Troponin I < 0.0120 ng/mL (0.00-0.120) 08/08/17 10:10 Total Protein 5.5 g/dL (6.3-8.3) L 09/19/17 07:15 Albumin 3.1 g/dL (3.5-5.0) L 09/19/17 07:15 Globulin 2.4 gm/dL (2.2-3.9) 09/19/17 07:15 Albumin/Globulin Ratio 1.3 (1.0-2.1) 09/19/17 07:15 Lipase 64 U/L (23-300) 08/08/17 10:10 Free T4 0.89 ng/dL (0.78-2.19) 08/09/17 17:27 Thyroxine (T4) 5.26 ug/dL (5.5-11.0) L 09/02/17 06:45 Free T3 pg/mL 2.19 pg/mL (2.77-5.27) L 08/09/17 17:27 Total T3 1.28 nmol/L (1.49-2.60) L 08/09/17 12:19 TSH 3rd Generation 1.61 mIU/L (0.46-4.68) 09/02/17 06:45 Urine Color Straw (YELLOW) 09/18/17 17:49 Urine Clarity Clear (Clear) 09/18/17 17:49 Urine pH 6.0 (5.0-8.0) 09/18/17 17:49 Ur Specific [place] 1.011 (1.003-1.030) 09/18/17 17:49 Urine Protein 1+ mg/dL (NEGATIVE) H 09/18/17 17:49 Urine Glucose (UA) 3+ mg/dL (Normal) H 09/18/17 17:49 Urine Ketones Negative mg/dL (NEGATIVE) 09/18/17 17:49 Urine Blood 2+ (NEGATIVE) H 09/18/17 17:49 Urine Nitrate Negative (NEGATIVE) 09/18/17 17:49 Urine Bilirubin Negative (NEGATIVE) 09/18/17 17:49 Urine Urobilinogen Normal mg/dL (0.2-1.0) 09/18/17 17:49 Ur Leukocyte Esterase 1+ Aditya/uL (Negative) H 09/18/17 17:49 Urine WBC (Auto) 8 /hpf (0-5) H 09/18/17 17:49 Urine RBC (Auto) 8 /hpf (0-3) H 09/18/17 17:49 Ur Squamous Epith Cells 1 /hpf (0-5) 08/23/17 07:12 Urine Bacteria Rare (<OCC) 09/18/17 17:49 Hyaline Casts 0-2 /lpf (0-2) 08/08/17 12:16 Urine Osmolality 301 mosm/kg (300-1000) 09/18/17 17:49 Ur Random Creatinine 20.4 mg/dL 08/24/17 00:23 U Random Total Protein 18.0 mg/dL (0.0-12.0) H 08/24/17 00:27 Ur Random Sodium 15 mmol/L 09/18/17 17:49 Urine Microalbumin < 6.0 mg/L (0.0-16.6) 08/23/17 22:00 Stool Occult Blood Negative (NEGATIVE) 08/23/17 07:12 Vancomycin Trough 31.1 ug/mL (5.0-10.0) H 09/08/17 06:26 Random Vancomycin 18.65 ug/mL 09/10/17 09:15 Valproic Acid 28.3 ug/mL (50.0-100.0) L 09/15/17 08:39 Absolute Lymphs (Flow) 1003 Cells/mcL (850-3900) 08/30/17 07:20 % CD3 Cells 66 Percent (57-85) 08/21/17 07:24 Absolute CD3 Count 567 Cells/mcL (840-3060) L 08/21/17 07:24 % CD4 Cells 5 Percent (30-61) L 08/30/17 07:20 Absolute CD4 Count 55 Cells/mcL (490-1740) L 08/30/17 07:20 T-Help/Suppress Ratio 0.10 Ratio (0.86-5.00) L 08/30/17 07:20 % CD8 Cells 56 Percent (12-42) H 08/30/17 07:20 Absolute CD8 Count 566 Cells/mcL (180-1170) 08/30/17 07:20 HLA-B*5701 Negative 08/23/17 07:33 RPR Nonreactive (NONREACTIVE) 08/12/17 12:17 Cryptococcus Ab <1:2 08/12/17 12:17 CMV IgG Ab >10.00 U/mL H 08/12/17 12:17 CMV IgM Ab <30.00 AU/mL 08/12/17 12:17 Hepatitis A IgM Ab Negative (NEGATIVE) 08/09/17 12:19 Hep Bs Antigen Negative (NEGATIVE) 08/09/17 12:19 Hep B Core IgM Ab Negative (NEGATIVE) 08/09/17 12:19 Hepatitis C Antibody Negative (NEGATIVE) 08/09/17 12:19 HSV Source Description Serum 08/22/17 11:47 HSV I IgG Ab 23.80 index H 08/22/17 11:47 HSV II IgG 2.45 index H 08/22/17 11:47 HSV I DNA PCR Not detected (Not Detected) 08/22/17 11:47 HSV II DNA PCR Not detected (Not Detected) 08/22/17 11:47 HIV-1 Antibody Positive (Negative) H 08/11/17 12:19 HIV-1 RNA Qnt (RT-PCR) 5.34 (<1.30) H 08/30/17 07:20 HIV-2 Antibody Negative (Negative) 08/11/17 12:19 HIV 1&2 Ag/Ab, 4th Gen Reactive (Nonreactive) H 08/11/17 12:19 HIV 1&2 Antibody Screen Reactive (NEGATIVE) 08/09/17 12:19 JAGUAR Virus Spec Source Plasma 08/31/17 13:44 JAGUAR Virus DNA (PCR) <500 copies/mL (<500) 08/31/17 13:44 Ur JAGUAR Virus DNA (PCR) <500 copies/mL (<500) 08/24/17 00:08 Toxoplasma IgG Ab <7.20 IU/mL 08/12/17 12:17 Toxoplasma IgM Ab <8.00 AU/mL 08/12/17 12:17 Toxoplasma Ab Interp TEST NOT PERFORMED 08/12/17 12:17 TB Test (QFT) Nil 0.07 IU/mL 08/15/17 08:58 TB Test Mitogen - Nil 0.16 IU/mL 08/15/17 08:58 TB Test TB - Nil <0.00 IU/mL 08/15/17 08:58 TB Test (QFT) Indeterminate (Negative) H 08/15/17 08:58 Blood Type O POSITIVE 08/26/17 15:04 Blood Type Confirm O POSITIVE 08/26/17 15:04 Antibody Screen Negative 08/26/17 15:04 - Hospital Course Hospital Course: CC: trouble swallowing liquids and solids with pain 57 year old female with PMHx of HTN, Hypothyroid, DM, GERD, esophagitis, gastritis, and LOLIS (dialyzed for 4 weeks, permacath removed 5 days ago). Patient comes in complaining of dysphagia that has been progressively worsening over the last two weeks. Pain has been worse at night because she normally spits up a lot during the day. She notes an associated sharp pain that occurs after burping. Patient says she feels like she has a lot of gas constantly. Patient has had a 15-20 lbs weight loss since February. She had an EGD done at [facility] back in February which showed ulceration of the lower esophagus. Patient states she was given abx and began to feel better until two weeks ago in which her symptoms progressively started to worsen. Patient has not been taking many of her normal medications due to her dysphagia. Patient takes her insulin, but often forgets. 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 Patient denies nausea, vomiting, abdominal pain, diarrhea, fever, or chills. PMD: Dr. Chuy Fernando Operation Shift Supervisor: Dr. Ambrocio Pmhx: HTN, Hypothyroid, DM, GERD, esophagitis, gastritis, and LOLIS (dialyzed for 4 weeks, permacath removed 5 days ago) Pshx: Permacath, EGD Famhx: none known Social: denies tobacco, alcohol, drugs. 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 A workup was done with Neurology, Dr Denney, and Infectious Disease, Dr Meneses, consulted. 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 HIV-1 RNA Qnt (RT-PCR) test was high at 5.80. Atripla therapy was started promptly. Her LDH was 478. From then on, an infectious etiology was pursued. Her CMV test showed IgG > 10 and IgM <30 which denotes previous infection, but no acute infection. Her Crypto values were <1:2, RPR was nonreactive, Toxoplasma IgG < 7.2 and IgM < 8 and JAGUAR virus <500 - negative. There was a suspicion for PML encephalopathy however an lumbar puncture was never done due to the patient's unstable condition as the risks outweighed the benefits. She was given antibiotics throughout her stay including bactrim, aztreonam and vancomycin. She was given decadron taper and valproate. The patient had poor appetite and refused meds occasionally throughout her stay however at the end of her stay she began to eat her meals and tolerate po medications. At the time of discharge she is AAOx3 but her mental status waxes and wanes. I've included the imaging results below: Brain MRI 09/09/17 - Diminishing bilateral thalamic signal abnormality though bilateral cerebral white matter signal changes are not significantly changed. 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 Neck MRA 08/29/17 - No significant stenosis seen in the visualized bilateral common or internal carotid arteries. Mild right ICA proximal stenosis is identified with plaque identified at the right carotid bulb. Widely patent bilateral common carotids but otherwise, as imaged. Symmetric vertebrobasilar circulation. Head MRA 08/29/17 - Suboptimal diagnostic quality due to motion degraded images , allowing for this, no occlusion. Apparent narrowing in bilateral M1 segments could be related to motion artifacts. Brain MRI w/o contrast 08/22/17 - Mild diffuse/confluent nonspecific white matter changes as described. Findings are of uncertain etiology though could represent sequela of HIV encephalopathy. PML not excluded. Head CT w/o contrast 08/28/17 - Significant motion artifact limits this exam however interval edema is identified at the right greater than left basal ganglia and thalami as well as the bilateral occipital lobes and the right parietal lobe. Is difficult to determine definitively though this is vasogenic or cytotoxic however embolic infarction is questioned. Given the basal ganglia and thalami being affected focally, and anoxic insult is included in the differential diagnosis or even though there is no global loss of vaca-white matter differentiation and edema in this patient. Infectious or metabolic etiologies are not excluded but are not favored. EEG 08/23 - This is a probably normal EEG. There was increased beta activity noticed intermittently. This could be a normal finding. No focal slowing no seizure like activity was observed. Correlation with clinical findings is needed. 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 She was given haloperidol, hydroxyzine, zoloft and trazadone. The haloperidol, zoloft and trazadone were stopped due to the side effect of hyponatremia. Hyponatremia: Most likely due to hypovolemia. Nephrology, Dr Wong, was consulted. Fluids were started and medications that could cause hyponatremia were stopped. Dysphagia: GI, Dr Cervantes was consulted. A barium swallow showed a small hiatal hernia but otherwise unremarkable. A neck soft tissue CT showed abnormal circumferential thickening noted of the cervical esophagus. findings could be due to reflux esophagitis but esophageal carcinoma is not excluded. A CT chest showed particulate matter, possibly food, identified within the esophageal lumen. This issue had resolved and the patient began to tolerate food and po meds. Right breast mass: A 6mm right breast mass was found as an incidental finding on chest CT. She will need to follow-up on this with a diagnostic mammogram and ultrasound and possibly FNA. Urinary Retention: A pink cather was started after she had a bladder scan with a lot of retention. History of hypothyroidism: This is a stable issue for her. We gave her Synthroid 125mcg QD. Diabetes: This patient has flucuating sugars. The hypoglycemia protocol was initiated. Head Cook, Dr Donaldson, was consulted. Her HgA1C was 7.1. Accuchecks were done q6. She was started on novolog and levemir which was adjusted throughout her stay to optimize her sugars. 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 The patient was given 2 units pRBCs on 08/26/17 (consent given by , Emiliano Hoang, on phone). Discharge Exam - Head Exam Head Exam: ATRAUMATIC, NORMAL INSPECTION, NORMOCEPHALIC - Eye Exam Eye Exam: EOMI Pupil Exam: PERRL - ENT Exam ENT Exam: Mucous Membranes Moist - Neck Exam Neck exam: Normal Inspection - Respiratory Exam Respiratory Exam: Clear to PA & Lateral, NORMAL BREATHING PATTERN. absent: Rales, Rhonchi, Wheezes - Cardiovascular Exam Cardiovascular Exam: REGULAR RHYTHM, RRR, +S1, +S2. absent: Bradycardia, Tachycardia, Systolic Murmur - GI/Abdominal Exam GI & Abdominal Exam: Normal Bowel Sounds, Soft. absent: Tenderness - Extremities Exam Extremities exam: normal inspection Additional comments: muscle wasting noted in lower extremities below knees bilaterally - Back Exam Back exam: absent: tenderness Additional comments: stage 1 ulcer noted near rectum with medihoney covering - Neurological Exam Neurological exam: Alert, CN II-XII Intact, Oriented x3 - Psychiatric Exam Psychiatric exam: Normal Affect, Normal Mood - Skin Skin Exam: Intact, Normal Color, Warm Additional comments: stage 1 ulcer noted near rectum with medihoney covering Discharge Plan - Follow Up Plan Condition: FAIR Disposition: REHAB FACILITY/REHAB UNIT Instructions: Diabetic Foot Care (DC), Basic Carbohydrate Counting (DC), Meal Planning with the Plate Method (DC), Meal Planning with Diabetes Exchanges (DC) , Hypertension (DC), Hypertension (GEN), Altered Mental Status (GEN), Anemia (DC ) <Wilner Meza - Last Filed: 09/28/17 11:03> Provider - Provider Date of Admission: 08/08/17 13:46 Attending physician: Wilner Meza MD Hospital Course - Lab Results Lab Results: Micro Results 09/13/17 05:30 Blood-Thru Central Line Blood Culture - Final NO GROWTH AFTER 5 DAYS 09/13/17 05:30 Blood-Thru Central Line Gram Stain - Final TEST NOT PERFORMED 09/13/17 07:10 Blood-Thru Central Line Blood Culture - Final NO GROWTH AFTER 5 DAYS 09/13/17 07:10 Blood-Thru Central Line Gram Stain - Final TEST NOT PERFORMED 09/05/17 19:30 Blood-Venous Blood Culture - Final NO GROWTH AFTER 5 DAYS 09/05/17 19:30 Blood-Venous Gram Stain - Final TEST NOT PERFORMED 09/05/17 19:30 Blood-Venous S.aureus & Coag-Neg Staph PNA FISH - Final 09/05/17 19:30 Blood-Venous Blood Culture - Final Coagulase Neg Staphylococcus 09/05/17 19:30 Blood-Venous Gram Stain - Final 09/05/17 18:27 Urine,Pink Urine Culture - Final No Growth (<1,000 CFU/ML) 08/17/17 09:40 Blood-Venous Blood Culture - Final NO GROWTH AFTER 5 DAYS 08/17/17 09:40 Blood-Venous Gram Stain - Final TEST NOT PERFORMED 08/17/17 09:20 Blood-Venous Blood Culture - Final NO GROWTH AFTER 5 DAYS 08/17/17 09:20 Blood-Venous Gram Stain - Final TEST NOT PERFORMED 08/17/17 09:40 Urine Urine Culture - Final No Growth (<1,000 CFU/ML) Most Recent Lab Values WBC 6.5 K/uL (4.8-10.8) 09/19/17 07:15 RBC 2.62 Mil/uL (3.80-5.20) L 09/19/17 07:15 Hgb 8.0 g/dL (11.0-16.0) L 09/19/17 07:15 Hct 23.0 % (34.0-47.0) L 09/19/17 07:15 MCV 87.6 fL (81.0-99.0) 09/19/17 07:15 MCH 30.4 pg (27.0-31.0) 09/19/17 07:15 MCHC 34.7 g/dL (33.0-37.0) 09/19/17 07:15 RDW 14.8 % (11.5-14.5) H 09/19/17 07:15 Plt Count 145 K/uL (130-400) 09/19/17 07:15 MPV 9.3 fL (7.2-11.7) 09/19/17 07:15 Neut % (Auto) 79.0 % (50.0-75.0) H 09/19/17 07:15 Lymph % (Auto) 11.2 % (20.0-40.0) L 09/19/17 07:15 Rush % (Auto) 6.7 % (0.0-10.0) 09/19/17 07:15 Eos % (Auto) 1.9 % (0.0-4.0) 09/19/17 07:15 Baso % (Auto) 1.2 % (0.0-2.0) 09/19/17 07:15 Neut # 5.2 K/uL (1.8-7.0) 09/19/17 07:15 Lymph # 0.7 K/uL (1.0-4.3) L 09/19/17 07:15 Rush # 0.4 K/uL (0.0-0.8) 09/19/17 07:15 Eos # 0.1 K/uL (0.0-0.7) 09/19/17 07:15 Baso # 0.1 K/uL (0.0-0.2) 09/19/17 07:15 Neutrophils % (Manual) 85 % (50-75) H 09/18/17 06:19 Band Neutrophils % 1 % (0-2) 09/16/17 07:00 Lymphocytes % (Manual) 9 % (20-40) L 09/18/17 06:19 Monocytes % (Manual) 6 % (0-10) 09/18/17 06:19 Eosinophils % (Manual) 2 % (0-4) 08/26/17 06:23 Basophils % (Manual) 1 % (0-2) 09/15/17 07:16 Metamyelocytes % 1 % (0-0) H 09/09/17 07:27 Myelocytes % 1 % (0-0) H 09/15/17 07:16 Nucleated RBC % 1 % (0-0) H 08/26/17 06:23 Differential Comment 08/25/17 07:05 Toxic Granulation Present 09/14/17 07:12 Platelet Estimate Normal (NORMAL) 09/18/17 06:19 Large Platelets Present 09/14/17 07:12 Polychromasia Slight 09/14/17 07:12 Hypochromasia (manual) Moderate 09/18/17 06:19 Poikilocytosis (manual Slight 09/18/17 06:19 Basophilic Stippling Slight 08/17/17 07:25 Anisocytosis (manual) Slight 09/18/17 06:19 Microcytosis (manual) Slight 09/18/17 06:19 Target Cells Slight 09/15/17 07:16 Tear Drop Cells Slight 09/15/17 07:16 Ovalocytes Slight 09/15/17 07:16 Fabienne Cells Slight 09/18/17 06:19 Schistocytes Slight 09/14/17 07:12 Smear Path Review 08/31/17 07:15 PT 11.1 SECONDS (9.7-12.2) 09/08/17 06:26 INR 1.0 09/08/17 06:26 APTT 26 SECONDS (21-34) 09/08/17 06:26 Sodium 130 mmol/L (132-148) L 09/19/17 07:15 Potassium 3.0 mmol/L (3.6-5.2) L 09/19/17 07:15 Chloride 100 mmol/L (98-107) 09/19/17 07:15 Carbon Dioxide 20 mmol/L (22-30) L 09/19/17 07:15 Anion Gap 13 (10-20) 09/19/17 07:15 BUN 20 mg/dL (7-17) H 09/19/17 07:15 Creatinine 0.9 mg/dL (0.7-1.2) 09/19/17 07:15 Est GFR ( Amer) > 60 09/19/17 07:15 Est GFR (Non-Af Amer) > 60 09/19/17 07:15 POC Glucose (mg/dL) 218 mg/dL (65-110) H 09/19/17 21:01 Random Glucose 202 mg/dL (65-105) H 09/19/17 07:15 Hemoglobin A1c 7.4 % (4.2-6.5) H 08/19/17 08:25 Serum Osmolality 276 mosm/kg (272-300) 08/20/17 14:22 Calcium 8.0 mg/dl (8.6-10.4) L 09/19/17 07:15 Phosphorus 3.5 mg/dL (2.5-4.5) 09/15/17 07:16 Magnesium 1.9 mg/dL (1.6-2.3) 09/15/17 07:16 Iron 160 ug/dL (37-170) 08/21/17 07:24 TIBC 203 ug/dL (250-450) L 08/21/17 07:24 % Saturation 79 (20-55) H 08/21/17 07:24 Ferritin 2580.0 ng/mL 08/21/17 07:24 Total Bilirubin 0.5 mg/dL (0.2-1.3) 09/19/17 07:15 AST 19 U/L (14-36) 09/19/17 07:15 ALT 40 U/L (9-52) 09/19/17 07:15 Alkaline Phosphatase 112 U/L (38-126) 09/19/17 07:15 Ammonia 14 umol/L (9-33) 08/29/17 14:01 Lactate Dehydrogenase 478 U/L (313-618) 08/12/17 17:01 Troponin I < 0.0120 ng/mL (0.00-0.120) 08/08/17 10:10 Total Protein 5.5 g/dL (6.3-8.3) L 09/19/17 07:15 Albumin 3.1 g/dL (3.5-5.0) L 09/19/17 07:15 Globulin 2.4 gm/dL (2.2-3.9) 09/19/17 07:15 Albumin/Globulin Ratio 1.3 (1.0-2.1) 09/19/17 07:15 Lipase 64 U/L (23-300) 08/08/17 10:10 Free T4 0.89 ng/dL (0.78-2.19) 08/09/17 17:27 Thyroxine (T4) 5.26 ug/dL (5.5-11.0) L 09/02/17 06:45 Free T3 pg/mL 2.19 pg/mL (2.77-5.27) L 08/09/17 17:27 Total T3 1.28 nmol/L (1.49-2.60) L 08/09/17 12:19 TSH 3rd Generation 1.61 mIU/L (0.46-4.68) 09/02/17 06:45 Urine Color Straw (YELLOW) 09/18/17 17:49 Urine Clarity Clear (Clear) 09/18/17 17:49 Urine pH 6.0 (5.0-8.0) 09/18/17 17:49 Ur Specific [place] 1.011 (1.003-1.030) 09/18/17 17:49 Urine Protein 1+ mg/dL (NEGATIVE) H 09/18/17 17:49 Urine Glucose (UA) 3+ mg/dL (Normal) H 09/18/17 17:49 Urine Ketones Negative mg/dL (NEGATIVE) 09/18/17 17:49 Urine Blood 2+ (NEGATIVE) H 09/18/17 17:49 Urine Nitrate Negative (NEGATIVE) 09/18/17 17:49 Urine Bilirubin Negative (NEGATIVE) 09/18/17 17:49 Urine Urobilinogen Normal mg/dL (0.2-1.0) 09/18/17 17:49 Ur Leukocyte Esterase 1+ Aditya/uL (Negative) H 09/18/17 17:49 Urine WBC (Auto) 8 /hpf (0-5) H 09/18/17 17:49 Urine RBC (Auto) 8 /hpf (0-3) H 09/18/17 17:49 Ur Squamous Epith Cells 1 /hpf (0-5) 08/23/17 07:12 Urine Bacteria Rare (<OCC) 09/18/17 17:49 Hyaline Casts 0-2 /lpf (0-2) 08/08/17 12:16 Urine Osmolality 301 mosm/kg (300-1000) 09/18/17 17:49 Ur Random Creatinine 20.4 mg/dL 08/24/17 00:23 U Random Total Protein 18.0 mg/dL (0.0-12.0) H 08/24/17 00:27 Ur Random Sodium 15 mmol/L 09/18/17 17:49 Urine Microalbumin < 6.0 mg/L (0.0-16.6) 08/23/17 22:00 Stool Occult Blood Negative (NEGATIVE) 08/23/17 07:12 Vancomycin Trough 31.1 ug/mL (5.0-10.0) H 09/08/17 06:26 Random Vancomycin 18.65 ug/mL 09/10/17 09:15 Valproic Acid 28.3 ug/mL (50.0-100.0) L 09/15/17 08:39 Absolute Lymphs (Flow) 1003 Cells/mcL (850-3900) 08/30/17 07:20 % CD3 Cells 66 Percent (57-85) 08/21/17 07:24 Absolute CD3 Count 567 Cells/mcL (840-3060) L 08/21/17 07:24 % CD4 Cells 5 Percent (30-61) L 08/30/17 07:20 Absolute CD4 Count 55 Cells/mcL (490-1740) L 08/30/17 07:20 T-Help/Suppress Ratio 0.10 Ratio (0.86-5.00) L 08/30/17 07:20 % CD8 Cells 56 Percent (12-42) H 08/30/17 07:20 Absolute CD8 Count 566 Cells/mcL (180-1170) 08/30/17 07:20 HLA-B*5701 Negative 08/23/17 07:33 RPR Nonreactive (NONREACTIVE) 08/12/17 12:17 Cryptococcus Ab <1:2 08/12/17 12:17 CMV IgG Ab >10.00 U/mL H 08/12/17 12:17 CMV IgM Ab <30.00 AU/mL 08/12/17 12:17 Hepatitis A IgM Ab Negative (NEGATIVE) 08/09/17 12:19 Hep Bs Antigen Negative (NEGATIVE) 08/09/17 12:19 Hep B Core IgM Ab Negative (NEGATIVE) 08/09/17 12:19 Hepatitis C Antibody Negative (NEGATIVE) 08/09/17 12:19 HSV Source Description Serum 08/22/17 11:47 HSV I IgG Ab 23.80 index H 08/22/17 11:47 HSV II IgG 2.45 index H 08/22/17 11:47 HSV I DNA PCR Not detected (Not Detected) 08/22/17 11:47 HSV II DNA PCR Not detected (Not Detected) 08/22/17 11:47 HIV-1 Antibody Positive (Negative) H 08/11/17 12:19 HIV-1 RNA Qnt (RT-PCR) 5.34 (<1.30) H 08/30/17 07:20 HIV-2 Antibody Negative (Negative) 08/11/17 12:19 HIV 1&2 Ag/Ab, 4th Gen Reactive (Nonreactive) H 08/11/17 12:19 HIV 1&2 Antibody Screen Reactive (NEGATIVE) 08/09/17 12:19 JAGUAR Virus Spec Source Plasma 08/31/17 13:44 JAGUAR Virus DNA (PCR) <500 copies/mL (<500) 08/31/17 13:44 Ur JAGUAR Virus DNA (PCR) <500 copies/mL (<500) 08/24/17 00:08 Toxoplasma IgG Ab <7.20 IU/mL 08/12/17 12:17 Toxoplasma IgM Ab <8.00 AU/mL 08/12/17 12:17 Toxoplasma Ab Interp TEST NOT PERFORMED 08/12/17 12:17 TB Test (QFT) Nil 0.07 IU/mL 08/15/17 08:58 TB Test Mitogen - Nil 0.16 IU/mL 08/15/17 08:58 TB Test TB - Nil <0.00 IU/mL 08/15/17 08:58 TB Test (QFT) Indeterminate (Negative) H 08/15/17 08:58 Blood Type O POSITIVE 08/26/17 15:04 Blood Type Confirm O POSITIVE 08/26/17 15:04 Antibody Screen Negative 08/26/17 15:04 Attending/Attestation - Attestation I have personally seen and examined this patient.: Yes I have fully participated in the care of the patient.: Yes I have reviewed all pertinent clinical information, including history, physical exam and plan: Yes Notes (Text): Patient was seen and examined.Discussed with the resident I agree with the resident's documentation of the assessment and plan
== END 2017-09-19 23:30 | DRG 707 ==
LOC: C.ER 09:28 → C.9E 13:46 → EEVIPCON 13:46 → C.3T 14:10 → C.6T 08-22 09:17
PROVIDERS: ADMIT Internal Medicine; ATTEND Internal Medicine
PROC: 0DH67UZ Insertion of Feeding Device into Stomach, Via Natural or Artificial Opening (ICD-10-PCS; principal; 2017-08-29)
PROC: 3E0G76Z Introduction of Nutritional Substance into Upper GI, Via Natural or Artificial Opening (ICD-10-PCS; 2017-08-29)
PROC: 30233N1 Transfusion of Nonautologous Red Blood Cells into Peripheral Vein, Percutaneous Approach (ICD-10-PCS; 2017-08-31)
PROC: 30233R1 Transfusion of Nonautologous Platelets into Peripheral Vein, Percutaneous Approach (ICD-10-PCS; 2017-08-31)
PROC: 02HV33Z Insertion of Infusion Device into Superior Vena Cava, Percutaneous Approach (ICD-10-PCS; 2017-09-03)
DX: B20 Human immunodeficiency virus [HIV] disease (principal); G93.49 Other encephalopathy; A81.2 Progressive multifocal leukoencephalopathy; L89.159 Pressure ulcer of sacral region, unspecified stage; E46 Unspecified protein-calorie malnutrition; F33.3 Major depressive disorder, recurrent, severe with psychotic symptoms; B37.0 Candidal stomatitis; E10.42 Type 1 diabetes mellitus with diabetic polyneuropathy; K31.84 Gastroparesis; E87.1 Hypo-osmolality and hyponatremia; E10.43 Type 1 diabetes mellitus with diabetic autonomic (poly)neuropathy; E10.649 Type 1 diabetes mellitus with hypoglycemia without coma; E10.65 Type 1 diabetes mellitus with hyperglycemia; E87.5 Hyperkalemia; R56.9 Unspecified convulsions; D70.3 Neutropenia due to infection; T18.108A Unspecified foreign body in esophagus causing other injury, initial encounter; D63.8 Anemia in other chronic diseases classified elsewhere; K21.0 Gastro-esophageal reflux disease with esophagitis; Z79.4 Long term (current) use of insulin; E03.9 Hypothyroidism, unspecified; E86.1 Hypovolemia; F02.80 Dementia in other diseases classified elsewhere, unspecified severity, without behavioral disturbance, psychotic disturbance, mood disturbance, and anxiety; F41.1 Generalized anxiety disorder; G25.3 Myoclonus; I10 Essential (primary) hypertension; N63.0 Unspecified lump in unspecified breast; R33.9 Retention of urine, unspecified; T37.0X5A Adverse effect of sulfonamides, initial encounter; T38.0X5A Adverse effect of glucocorticoids and synthetic analogues, initial encounter; F17.200 Nicotine dependence, unspecified, uncomplicated; Z51.5 Encounter for palliative care; Z74.01 Bed confinement status; Z79.899 Other long term (current) drug therapy; Z87.19 Personal history of other diseases of the digestive system

== ENCOUNTER 2018-03-10 20:59 | Emergency (ER) | payer OTHER ==
[2018-03-10 21:00] VITALS: BMI 30.2
[2018-03-10 21:20] VITALS: RESP 20; O2SAT 100
--- NOTE | 2018-03-10 21:45 | C.PDOC ---
History Of Present Illness 58 y/o female with a PMHx of IDDM, brought in by EMS for low blood sugar. Patient reportedly took insulin this evening (10 units Novolog) and did not eat right away. As per son patient then had acute episode of altered mental status and EMS was called. EMS found her blood sugar to be 30, and patient was given OJ and sugar by her son. Blood sugar then improved to 90 en route and EMS brought her to the ED. On arrival patient appears AAOx3 with no acute complaints. Of note, patient's primary doctor had recently made adjustments to her insulin regimen. Time Seen by Provider: 03/10/18 21:36 Chief Complaint (Nursing): Medical Clearance History Per: Family History/Exam Limitations: no limitations Onset/Duration Of Symptoms: Mins Current Symptoms Are (Timing): Better Additional History Per: EMS Past Medical History Reviewed: Historical Data, Nursing Documentation, Vital Signs Vital Signs: Last Vital Signs Temp 97.8 F 03/10/18 22:50 Pulse 76 03/10/18 22:50 Resp 20 03/10/18 22:50 BP 133/78 03/10/18 22:50 Pulse Ox 100 03/10/18 22:50 - Medical History PMH: Diabetes (insulin-depedent), Gastritis, HTN, Hypothyroidism Denies: Chronic Kidney Disease Surgical History: (x2) - [facility] Procedures ESOPHAGOGASTRODUODENOSCOPY [EGD] W/CLOSED BIOPSY (05/06/13) INSERTION OF FEEDING DEVICE INTO STOMACH, VIA OPENING (08/08/17) INSERTION OF INFUSION DEV INTO SUP VENA CAVA, PERC APPROACH (08/08/17) INTRODUCTION OF NUTRITIONAL INTO UP GI, VIA OPENING (08/08/17) TRANSFUSE NONAUT PLATELETS IN PERIPH VEIN, PERC (08/08/17) TRANSFUSE NONAUT RED BLOOD CELLS IN PERIPH VEIN, PERC (08/08/17) Family History: States: Unknown Family Hx - Social History Hx Tobacco Use: No Hx Alcohol Use: No Hx Substance Use: No - Immunization History Hx Tetanus Toxoid Vaccination: No Hx Influenza Vaccination: No Hx Pneumococcal Vaccination: No Review Of Systems Except As Marked, All Systems Reviewed And Found Negative. Constitutional: Positive for: Other (Low blood sugar). Negative for: Fever, Weakness Respiratory: Negative for: Shortness of Breath Gastrointestinal: Negative for: Vomiting, Abdominal Pain Neurological: Positive for: Altered Mental Status (now resolved). Negative for : Dizziness Physical Exam - Physical Exam Appears: Well, Non-toxic, No Acute Distress Skin: Warm, Dry, No Rash Head: Atraumatic, Normacephalic Eye(s): bilateral: Normal Inspection, PERRL, EOMI Nose: Normal Oral Mucosa: Moist Chest: Symmetrical Cardiovascular: Rhythm Regular, No Murmur Respiratory: Normal Breath Sounds, No Accessory Muscle Use, No Rales, No Rhonchi , No Wheezing Gastrointestinal/Abdominal: Soft, No Tenderness, No Guarding, No Rebound Extremity: Bilateral: Atraumatic, Normal Color And Temperature (with no clubbing , cyanosis, or edema), Normal ROM Neurological/Psych: Oriented x3, Normal Speech, Normal Cranial Nerves, Normal Motor, Normal Sensation, No Other (focal deficits) Gait: Steady ED Course And Treatment - Laboratory Results Result Diagrams: 03/10/18 21:54 O2 Sat by Pulse Oximetry: 100 (RA) Pulse Ox Interpretation: Normal Medical Decision Making Medical Decision Making: Impression: Hypoglycemia secondary to insulin Time: 21:44 Initial Plan: * CMP Labs reviewed, blood sugar is wnl. No other clinically significant abnormalities. Patient is stable for d/c home. Advised to follow insulin regimen as prescribed and make appointment with PMD in 1-2 days Return if symptoms persist or worsen. Disposition - Disposition Referrals: [facility] [Outside] Disposition: HOME/ ROUTINE Disposition Time: 01:45 Condition: FAIR Instructions: Low Blood Sugar in People With Diabetes Forms: [facility] (Thai) Print Language: BENGALI - Clinical Impression Clinical Impression: Hypoglycemia - Scribe Statement The provider has reviewed the documentation as recorded by the Scribe (Amy Ireland) Provider Attestation: All medical record entries made by the Scribe were at my direction and personally dictated by me. I have reviewed the chart and agree that the record accurately reflects my personal performance of the history, physical exam, medical decision making, and the department course for this patient. I have also personally directed, reviewed, and agree with the discharge instructions and disposition.
[2018-03-10 22:10] LABS: ALB/GLOB RATIO 1.2 (1.0-2.1); ALBUMIN 3.9 g/dL (3.5-5.0); CALCIUM 8.5 mg/dl (8.6-10.4)
[2018-03-10 23:29] VITALS: BP 133/78; PULSE 76; TEMP 97.8
== END 2018-03-10 22:51 | disposition home or self-care (01) ==
LOC: C.ER 20:59
DX: E11.649 Type 2 diabetes mellitus with hypoglycemia without coma (principal); Z79.4 Long term (current) use of insulin; I10 Essential (primary) hypertension

== ENCOUNTER 2018-11-12 13:26 | Emergency (ER) | payer OTHER ==
[2018-11-12 13:27] VITALS: BMI 30.2
[2018-11-12 13:39] VITALS: O2SAT 100
--- NOTE | 2018-11-12 13:39 | C.PDOC ---
History Of Present Illness 58 y/o female pt brought to the ER by EMS c/o low blood sugar MED ADMIN. Pt reports she was caught up in shopping that she forgot to eat. Pt has similar sx in the past. As per EMS, BS 44 s/p D50, pt is now better and is back to baseline. Pt has not recent illness. Pt denies chest pain, SOB, headache, fever, chills, cough, nausea, vomiting, abdominal pain, dizziness or lightheadedness. Time Seen by Provider: 11/12/18 13:33 History Per: Patient History/Exam Limitations: no limitations Onset/Duration Of Symptoms: Other (MED ADMIN) Current Symptoms Are (Timing): Better Past Medical History Reviewed: Historical Data, Nursing Documentation, Vital Signs Vital Signs: Last Vital Signs Temp Pulse 64 11/12/18 13:31 Resp 16 11/12/18 13:31 BP 161/91 H 11/12/18 13:31 Pulse Ox 100 11/12/18 13:31 - Medical History PMH: Diabetes (insulin-depedent), Gastritis, HTN, Hypothyroidism Surgical History: (x2) - [facility] Procedures ESOPHAGOGASTRODUODENOSCOPY [EGD] W/CLOSED BIOPSY (05/06/13) INSERTION OF FEEDING DEVICE INTO STOMACH, VIA OPENING (08/08/17) INSERTION OF INFUSION DEV INTO SUP VENA CAVA, PERC APPROACH (08/08/17) INTRODUCTION OF NUTRITIONAL INTO UP GI, VIA OPENING (08/08/17) TRANSFUSE NONAUT PLATELETS IN PERIPH VEIN, PERC (08/08/17) TRANSFUSE NONAUT RED BLOOD CELLS IN PERIPH VEIN, PERC (08/08/17) Family History: States: Unknown Family Hx - Social History Hx Tobacco Use: No Hx Alcohol Use: No Hx Substance Use: No - Immunization History Hx Tetanus Toxoid Vaccination: No Hx Influenza Vaccination: No Hx Pneumococcal Vaccination: No Review Of Systems Except As Marked, All Systems Reviewed And Found Negative. Constitutional: Positive for: Other (low blood sugar MED ADMIN ). Negative for: Fever, Chills Cardiovascular: Negative for: Chest Pain Respiratory: Negative for: Cough, Shortness of Breath Gastrointestinal: Negative for: Nausea, Vomiting, Abdominal Pain Neurological: Negative for: Headache, Dizziness, Other (light headedness ) Physical Exam - Physical Exam Appears: Non-toxic, No Acute Distress Skin: Warm, Dry Head: Atraumatic, Normacephalic Eye(s): bilateral: Normal Inspection, PERRL, EOMI Neck: Normal ROM Chest: Symmetrical Cardiovascular: Rhythm Regular Respiratory: Normal Breath Sounds, Other (NARD) Gastrointestinal/Abdominal: Soft, No Tenderness Extremity: Normal ROM (x4) Neurological/Psych: Oriented x3, Normal Speech, Normal Cognition, Normal Motor, Normal Sensation ED Course And Treatment O2 Sat by Pulse Oximetry: 100 (RA) Pulse Ox Interpretation: Normal Progress Note: Impression: hypoglycemia. Plans: -- Glucose POC Reevaluation Time: 14:57 Reassessment Condition: Improved (SP MEAL, NOW W ELEVATED GLU. PS FEELS BETTER. WILL FU PMD) Disposition Counseled Patient/Family Regarding: Studies Performed, Diagnosis, Need For Followup - Disposition Referrals: YOUR,PMD [Other] Disposition: HOME/ ROUTINE Disposition Time: 14:56 Condition: IMPROVED Instructions: Low Blood Sugar, Adult (DC) Forms: [employer] [facility] (Maori) - Clinical Impression Clinical Impression: Hypoglycemia - Scribe Statement The provider has reviewed the documentation as recorded by the Scriblucinda Ellsworth Do Provider Attestation: All medical record entries made by the Scribe were at my direction and personally dictated by me. I have reviewed the chart and agree that the record a ccurately reflects my personal performance of the history, physical exam, medical decision making, and the department course for this patient. I have also personally directed, reviewed, and agree with the discharge instructions and disposition.
[2018-11-12 14:56] VITALS: TEMP 97.3
[2018-11-12 15:12] VITALS: BP 110/52; PULSE 71; RESP 16
== END 2018-11-12 15:13 | disposition home or self-care (01) ==
LOC: C.ER 13:26
DX: E11.649 Type 2 diabetes mellitus with hypoglycemia without coma (principal); Z79.4 Long term (current) use of insulin; I10 Essential (primary) hypertension; E03.9 Hypothyroidism, unspecified

== ENCOUNTER 2019-01-29 11:32 | Outpatient (CLI) | payer MEDICAID | END 2019-01-29 11:33 | disposition home or self-care (01) | LOC: C.RADH 11:32 ==